=== PATIENT | male | born 1940 | race Caucasian/White ===

== ENCOUNTER 2017-09-27 17:55 | Emergency (ER) | payer MEDICARE, BC ==
[2017-09-28 00:18] VITALS: BP 189/94
--- NOTE | 2017-09-28 09:32 | ER ---
DATE SEEN: 09/27/2017 TIME SEEN: The patient was seen at 1800 hours. HISTORY OF PRESENT ILLNESS: The patient was at [facility] physical therapy for his chronic low back pain. His blood pressure was noted to be elevated at 197/98, heart rate 60, temperature 97, and oxygen saturation 100%. He was sent over to the hospital to evaluate his blood pressure, and see how he is doing. He has 4 medicines he is using for blood pressure; benazepril 40 mg, clonidine 0.1 mg, hydrochlorothiazide 12.5 mg, and enalapril 20 mg. He also takes other medicines of trazodone 100 mg daily; metformin; warfarin for his atrial fibrillation; insulin, long-acting, 20 at bedtime and 15 short-acting in the morning; and Lasix 40 mg daily. The patient is an overweight 300+ pound man, who otherwise is in relatively good health, except has dyslipidemia, atrial fibrillation, GERD, peripheral neuropathy, eczema, and low back pain. He is on anticoagulants for his atrial fibrillation, and he had previous surgeries of bilateral total knee arthroplasties, cholecystectomy, hernia repair, and left shoulder surgery. On further review of systems, he has chronic low back pain, and he has difficulty sleeping because of this. It is usually 5/10 in intensity, mostly in the lumbar region. He has never had an MRI or a CT of his lower back, but he does have mild pain radiating to his right leg. No recent weight change. No history of aortic aneurysm. No fall. Although he did slip this winter on the ice, did not get hurt. REVIEW OF SYSTEMS: Otherwise negative, except as noted. PHYSICAL EXAMINATION: VITAL SIGNS: First blood pressure taken was 197/98, mean arterial pressure 124, and 60 heart rate. Second blood pressure taken was 189/94, mean arterial pressure 117, and heart rate 47. HEENT: PERRLA intact, AV nicking in his eyegrounds. Pharynx without abnormality. GENERAL: This is a husky, overweight man with marked increased abdominal girth. Well tanned. Very pleasant. NECK: No bruits. HEART: S1 and S2; S2 is greater than S1. Soft systolic murmur. ABDOMEN: Soft. No guarding. No hepatosplenomegaly. No masses. No scars noted. Bowel sounds normal. EXTREMITIES: Lower extremities, trace pedal edema. Dorsalis pedis intact. NEUROLOGICAL: Deep tendon reflexes hypoactive but present in upper and lower extremities. Cranial nerves 2 through 12 intact. Gait intact. No hypotension with standing up. No lightheadedness. LABORATORY DATA: He also had a chemistry which revealed sodium, potassium, chloride, and CO2 were normal with 139, 4.0, 103, and 30. BUN 30 and creatinine 1.4 with GFR of 49 - chronic kidney disease, stage 3. BUN-creatinine ratio is slightly elevated. Glucose 337 (reflects his diabetes). Calcium is a little bit low, with a normal total protein and normal albumin. Urine protein 500, glucose is 250, few bacteria, and squamous epithelial cells. ASSESSMENT: 1. Hypertension, noted at [facility]. 2. Obesity. 3. Diabetes. 4. Dyslipidemia. 5. Atrial fibrillation, treated with anticoagulants. 6. Gastroesophageal reflux disease, gastropathy. 7. Peripheral neuropathy secondary to diabetes. 8. Eczema. 9. Anticoagulation for his atrial fibrillation. 10.Chronic low back pain with difficulty sleeping. PLAN: Already on 4-drug antihypertensive therapy, needs to increase his hydrochlorothiazide from 12.5 to 25 mg daily. If this does not work, consider doubling enalapril to 40 mg daily. Follow up with his doctor next week. /[id number] DES/SHU
== END 2017-09-27 19:54 | disposition home or self-care (01) ==
LOC: FB.ED 17:55
DX: I10 Essential (primary) hypertension (principal); G89.29 Other chronic pain; M54.5 Low back pain; G47.9 Sleep disorder, unspecified; E11.40 Type 2 diabetes mellitus with diabetic neuropathy, unspecified; E66.9 Obesity, unspecified; E78.5 Hyperlipidemia, unspecified; K21.9 Gastro-esophageal reflux disease without esophagitis; K31.9 Disease of stomach and duodenum, unspecified; I48.91 Unspecified atrial fibrillation; Z79.01 Long term (current) use of anticoagulants
CPT/HCPCS: 36415; 80053; 81001; 99283

== ENCOUNTER 2019-01-29 08:58 | Day surgery (SDC) | payer MEDICARE, BC ==
[2019-01-29] MEDS ORDERED: Propofol 200 MG/20 ML SDV IV ONE (08:59)
[2019-01-29] MEDS ORDERED: Sodium Chloride 0.9% 10 ML Syringe FLUSH PRN (09:00)
[2019-01-29] MEDS: Lactated Ringers 1,000 ML IV SCH (09:55)
--- NOTE | 2019-01-29 11:11 | PCM.OPNOTE ---
- General Post-Op/Procedure Note Date of Surgery/Procedure: 01/29/19 Operative Procedure(s): c scope Findings: poor prep with liquid stool through out. two polyps which had been bx were lost in prep Pre Op Diagnosis: diarrhea Post-Op Diagnosis: diarrhea and colon polyps Anesthesia Technique: MAC Primary Surgeon: Monster Mo Anesthesia Provider: Lela Harman Pathology: two bx of ascending colon ] Complications: None Condition: Good Free Text/Narrative:: see dictation.
[2019-01-29 12:19] VITALS: BP 131/70; PULSE 59
--- NOTE | 2019-01-30 11:31 | OR ---
DATE OF OPERATION: 01/29/2019 SURGEON: Monster Mo MD PROCEDURE PERFORMED: Colonoscopy with hot loop snare biopsy and cold forceps biopsy. PREOPERATIVE DIAGNOSIS: History of diarrhea. POSTOPERATIVE DIAGNOSIS: Diarrhea, colon polyps, and poor prep. INDICATIONS FOR PROCEDURE: This is an 78-year-old male who has had a history with some diarrhea over the past several months. He was offered and accepted colonoscopy. DESCRIPTION OF PROCEDURE: After an excellent IV sedation was administered, digital rectal exam was performed. No marked abnormality was noted. The flexible colonoscope was inserted and advanced to the cecum. The prep was marginal at best. We were unable to irrigate and clear. On slowly withdrawing the scope on the ascending colon, two polyps were encountered, roughly 1 cm in diameter. Both of these were biopsied, but we were unable to retrieve them. Due to the poor nature of the prep, we elected to terminate the procedure, re- prep the patient and bring him back the following day. /[id number] MAYANK/SHU
== END 2019-01-29 12:25 | disposition home or self-care (01) ==
LOC: FB.SDS 08:58
PROVIDERS: ATTEND Surgery
DX: D12.2 Benign neoplasm of ascending colon (principal); I48.20 Chronic atrial fibrillation, unspecified; I12.9 Hypertensive chronic kidney disease with stage 1 through stage 4 chronic kidney disease, or unspecified chronic kidney disease; E11.22 Type 2 diabetes mellitus with diabetic chronic kidney disease; N18.3 Chronic kidney disease, stage 3 (moderate); E11.42 Type 2 diabetes mellitus with diabetic polyneuropathy; E78.00 Pure hypercholesterolemia, unspecified; E66.9 Obesity, unspecified; J44.9 Chronic obstructive pulmonary disease, unspecified; Z68.38 Body mass index [BMI] 38.0-38.9, adult; Z86.010 Personal history of colon polyps; Z79.51 Long term (current) use of inhaled steroids; Z79.4 Long term (current) use of insulin; Z79.899 Other long term (current) drug therapy
CPT/HCPCS: 45380; 82962; J2704; J7120; 00811-QZ; 88305

== ENCOUNTER 2019-01-30 08:43 | Day surgery (SDC) | payer MEDICARE, BC ==
[2019-01-30] MEDS ORDERED: Lidocaine 2% 5 ML SDV IV ONE (08:44)
[2019-01-30] MEDS ORDERED: ePHEDrine 50 MG/ML SDV IV ONE (08:44)
[2019-01-30] MEDS ORDERED: Propofol 200 MG/20 ML SDV IV ONE (08:44)
[2019-01-30] MEDS ORDERED: Sodium Chloride 0.9% 10 ML Syringe FLUSH PRN (08:45)
[2019-01-30] MEDS: Lactated Ringers 1,000 ML IV SCH (10:01)
--- NOTE | 2019-01-30 11:04 | PCM.OPNOTE ---
- General Post-Op/Procedure Note Date of Surgery/Procedure: 01/30/19 Operative Procedure(s): c scope with bx Findings: ascending colon polyp transverse colon polyp descending colon polyp x3 sigmoid colon polyp x3 Pre Op Diagnosis: diarrhea Post-Op Diagnosis: colon polyps Anesthesia Technique: MAC Primary Surgeon: Monster Mo Anesthesia Provider: Judy Oh Pathology: colon polyps random colon Complications: None Condition: Good Free Text/Narrative:: see dictation
--- NOTE | 2019-01-30 11:31 | OR ---
DATE OF OPERATION: 01/30/2019 SURGEON: Monster Mo MD PROCEDURE PERFORMED: Colonoscopy with hot loop snare and cold forceps biopsy. PREOPERATIVE DIAGNOSIS: History of diarrhea. POSTOPERATIVE DIAGNOSES: Multiple colon polyps. Ascending colon x1. This is in addition to the 2 noted yesterday. Transverse colon polyp x1. Descending colon polyp x3. Sigmoid colon polyp x3. INDICATIONS FOR PROCEDURE: Mr. Delcid is an 78-year-old white male who has had a history of some diarrhea and incontinence of stools. Workup to-date has been negative. He had an attempted colonoscopy yesterday, but this was terminated due to his poor prep. He had two colon polyps biopsied yesterday, which were lost in the stool, and due to the scope clogging, we elected to terminate the case and bring the patient back today. DESCRIPTION OF OPERATION: After an excellent IV sedation was administered, digital rectal exam was performed. Flexible colonoscope was inserted and advanced to the cecum. The prep was better than yesterday, but in the descending colon, he did have pools of yellow particulate stool, which was consistent with what was found yesterday. However, the prep was much improved compared to yesterday. The following findings were noted. Ascending colon, a flat sessile polyp, biopsied with hot loop snare and retrieved. This was similar to one polyp seen yesterday. Random polyps biopsies were taken of the ascending colon. Transverse colon, a pedunculated polyp, biopsied with the hot loop snare. Random biopsies were taken as well. Descending colon, 3 pedunculated polyps, biopsied with hot loop snare and submitted. Random biopsies were taken. He was also noted to have a fair amount of spasm as well as the prep findings as noted. Sigmoid, 3 polyps biopsied with the hot loop snare. Various sizes, ranging for 1 to 2 cm in size. These were submitted. Random biopsies were taken of this. Rectum was unremarkable. The colon was deflated. Scope was removed. Results by letter. /[id number] /MODL
[2019-01-30 12:18] VITALS: BP 97/60; PULSE 47
== END 2019-01-30 11:43 | disposition home or self-care (01) ==
LOC: FB.SDS 08:43
PROVIDERS: ATTEND Surgery
DX: D12.2 Benign neoplasm of ascending colon (principal); D12.3 Benign neoplasm of transverse colon; D12.4 Benign neoplasm of descending colon; D12.5 Benign neoplasm of sigmoid colon; E11.43 Type 2 diabetes mellitus with diabetic autonomic (poly)neuropathy; E11.69 Type 2 diabetes mellitus with other specified complication; J44.9 Chronic obstructive pulmonary disease, unspecified; M16.11 Unilateral primary osteoarthritis, right hip; E78.5 Hyperlipidemia, unspecified; I12.9 Hypertensive chronic kidney disease with stage 1 through stage 4 chronic kidney disease, or unspecified chronic kidney disease; E11.22 Type 2 diabetes mellitus with diabetic chronic kidney disease; N18.3 Chronic kidney disease, stage 3 (moderate); E66.9 Obesity, unspecified; Z68.38 Body mass index [BMI] 38.0-38.9, adult; Z79.899 Other long term (current) drug therapy; Z79.51 Long term (current) use of inhaled steroids; Z79.4 Long term (current) use of insulin; Z79.01 Long term (current) use of anticoagulants
CPT/HCPCS: 45380; 45385; J2001; J2704; J7120; 00811-QZ; 88305; 88342

== ENCOUNTER 2019-04-21 21:57 | Inpatient (IN) | payer MEDICARE, BC ==
[2019-04-21] MEDS ORDERED: Furosemide 40 MG/4 ML VIAL IVPUSH ONE (23:07)
--- NOTE | 2019-04-21 23:07 | EDM.PDOC ---
ED HPI GENERAL MEDICAL PROBLEM - General Stated Complaint: dizziness Time Seen by Provider: 04/21/19 22:30 Source of Information: Reports: EMS, Family. Denies: EMS Notes Reviewed History Limitations: Reports: No Limitations - History of Present Illness INITIAL COMMENTS - FREE TEXT/NARRATIVE: brought in by EMS states he was going to the bathroom when fell. Was feeling dizzy and unsteady with his gait Hurt his arm , was not able to get up . called 911 . on arrival noted to be weak , not able to stand , sob at rest though able to speak in sentences no cough ,no chest pain , no abd pain Onset: Today Onset Date: 04/21/19 Duration: Getting Worse Quality: Reports: Pressure Severity: Moderate Improves with: Reports: Rest Worsens with: Reports: Breathing, Movement Context: Reports: Other (fall) - Related Data Allergies Allergy/AdvReac Type Severity Reaction Status Date / Time No Known Allergies Allergy Verified 04/21/19 22:38 Home Meds: Home Meds Hydrochlorothiazide 50 mg PO QAM 02/07/13 [History] Glucosam/Chondr/Collagn/Hyalur [Glucosamine & Chondroitin Cap] 1 cap PO DAILY [History] Vitamin B Complex 1 cap PO DAILY 05/30/14 [History] Cholecalciferol (Vitamin D3) [Vitamin D3] 1,000 unit PO DAILY 01/09/16 [History] Zinc 50 mg PO DAILY 01/09/16 [History] cloNIDine [Catapres] 0.2 mg PO DAILY 09/28/17 [History] traZODone 100 mg PO BEDTIME 09/28/17 [History] Donepezil [Aricept] 5 mg PO BEDTIME 01/28/19 [History] Insulin Glargine,Hum.Rec.Anlog [Basaglar Kwikpen U-100] 0 - 15 unit SQ BEDTIME 01/28/19 [History] Insulin Glargine,Hum.Rec.Anlog [Basaglar Kwikpen U-100] 0 - 15 unit SQ QAM 01/28 [History] Lutein/Min/Vit C/Vit E Acetate [Ocuvite Lutein] 1 cap PO DAILY 01/28/19 [History ] Calcium Carbonate/Vitamin D3 [Os-Porter 500+D] 1 each PO DAILY 04/21/19 [History] L.acidoph,Paracasei, B.lactis [Probiotic] 1 each PO DAILY 04/21/19 [History] Olmesartan Medoxomil [Benicar] 40 mg PO DAILY 04/21/19 [History] Warfarin [Coumadin] 2.5 mg PO TUFR 04/21/19 [History] Warfarin [Coumadin] 5 mg PO SUMOWETHSA 04/21/19 [History] sulfaSALAzine [Azulfidine] 500 mg PO BIDMEALS 04/21/19 [History] Past Medical History HEENT History: Reports: Cataract Cardiovascular History: Reports: Afib, High Cholesterol, Hypertension Respiratory History: Reports: Asthma, COPD Other Respiratory History: mild COPD - has albuterol inhaler Gastrointestinal History: Reports: GERD Genitourinary History: Reports: Chronic Renal Insuffiency, Other (See Below) Other Genitourinary History: STAGE 3 RENAL FAILURE Musculoskeletal History: Reports: Arthritis, Osteoarthritis Other Musculoskeletal History: 3 rib fx L lat Neurological History: Reports: Neuropathy, Peripheral Endocrine/Metabolic History: Reports: Diabetes, Type II, Obesity/BMI 30+ Hematologic History: Reports: Anticoagulation Therapy Immunologic History: Reports: None Oncologic (Cancer) History: Reports: Basal Cell Carcinoma Dermatologic History: Reports: Eczema, Other (See Below) Other Dermatologic History: fatty tumor removed from back. Has 'hematoma to R inner thigh from fall earlier this summer, was drained approx 2 1/[address] Mo[address]. ROSACEA - Infectious Disease History Infectious Disease History: Reports: Chicken Pox, Measles, Mumps - Past Surgical History Head Surgeries/Procedures: Reports: None HEENT Surgical History: Reports: Cataract Surgery, Tonsillectomy Other HEENT Surgeries/Procedures: bilat cataract Cardiovascular Surgical History: Reports: None GI Surgical History: Reports: Cholecystectomy, Hernia, Inguinal, Hernia Repair/ Other Other Female Surgeries/Procedures: L HYDROCELECTOMY Male Surgical History: Reports: Vasectomy, Other (See Below) Endocrine Surgical History: Reports: None Neurological Surgical History: Reports: None Musculoskeletal Surgical History: Reports: Knee Replacement, ORIF, Shoulder Replacement, Other (See Below) Other Musculoskeletal Surgeries/Procedures:: bilat knee replacement, L shoulder replacement, L femur ORIF Oncologic Surgical History: Reports: None Dermatological Surgical History: Reports: None Social & Family History - Family History Family Medical History: Noncontributory - Caffeine Use Caffeine Use: Reports: Coffee ED ROS GENERAL - Review of Systems Review Of Systems: See Below Constitutional: Reports: Weakness, Fatigue, Weight Gain. Denies: Fever, Chills , Diaphoresis, Decreased Appetite HEENT: Reports: No Symptoms Respiratory: Reports: Shortness of Breath. Denies: Wheezing, Cough Cardiovascular: Reports: Dyspnea on Exertion, Edema. Denies: Chest Pain, PND Endocrine: Reports: Fatigue GI/Abdominal: Reports: No Symptoms : Reports: Incontinence Musculoskeletal: Reports: Muscle Pain Skin: Reports: Other (abrasion on the right hand from fall) Neurological: Reports: Confusion, Dizziness, Pre-Existing Deficit (has memory problems , short term memory deficit), Gait Disturbance Psychiatric: Reports: Confusion Hematologic/Lymphatic: Reports: Easy Bleeding ED EXAM, NEURO - Physical Exam Exam: See Below Exam Limited By: No Limitations General Appearance: Alert, WD/WN, No Apparent Distress, Obese Eye Exam: Bilateral Eye: EOMI Ears: Normal TMs Nose: Clear Rhinorrhea Throat/Mouth: Normal Inspection Head Exam: Atraumatic, Normocephalic Neck: Supple, Non-Tender Respiratory/Chest: Decreased Breath Sounds, Crackles Cardiovascular: Regular Rate, Rhythm, Irregularly Irregular GI/Abdominal: Soft, Non-Tender Neurological: Alert, Difficulty Walking Back Exam: Normal Inspection Extremities: Pedal Edema Psychiatric: Normal Mood Skin Exam: Warm EKG INTERPRETATION EKG Date: 04/21/19 Rhythm: A-Fib Rate (Beats/Min): 58 QRS: RBBB *Q Meaningful Use (ADM) - VTE *Q VTE Mechanical Contraindications *Q: At Risk for Falls - VTE Risk Assess *Q Each Risk Factor Represents 1 Point: Obesity ( BMI > 25 kg/m2), Congestive heart failure (CHF) Total Score 1 Point Risk Factors: 2 Course - Orders/Labs/Meds Orders: Active Orders 24 hr Category Date Time Status Head wo Cont [CT] Stat Exams 04/21/19 22:18 Ordered Labs: Laboratory Tests 04/21/19 04/21/19 04/21/19 Range/Units 22:05 22:05 22:05 WBC 7.8 (4.5-12.0) X10-3/uL RBC 4.14 L (4.30-5.75) x10(6)uL Hgb 13.0 L (13.5-17.8) g/dL Hct 40.6 (30.0-51.3) % MCV 98.0 H (80-96) fL MCH 31.5 (27.7-33.6) pg MCHC 32.2 (32.2-35.4) g/dL RDW 15.5 (11.5-15.5) % Plt Count 300 (125-369) X10(3)uL MPV 7.3 L (7.4-10.4) fL Neut % (Auto) 74.3 (46-82) % Lymph % (Auto) 14.4 (13-37) % Jennings % (Auto) 7.9 (4-12) % Eos % (Auto) 3 (1.0-5.0) % Baso % (Auto) 1 (0-2) % Neut # (Auto) 5.9 (1.6-8.3) # Lymph # (Auto) 1.1 (0.6-5.0) # Jennings # (Auto) 0.6 (0.0-1.3) # Eos # (Auto) 0.2 (0.0-0.8) # Baso # (Auto) 0.0 (0.0-0.2) # PT (8.7-11.1) INR (0.89-1.13) APTT (24.4-33.2) SECONDS Sodium 142 (135-145) mmol/L Potassium 4.0 (3.5-5.3) mmol/L Chloride 104 (100-110) mmol/L Carbon Dioxide 31 (21-32) mmol/L BUN 21 H (7-18) mg/dL Creatinine 1.2 (0.70-1.30) mg/dL Est Cr Clr Drug Dosing TNP Estimated GFR (MDRD) 58 L (>60) BUN/Creatinine Ratio 17.5 (9-20) Glucose 180 H D (80-116) mg/dL Calcium 8.8 (8.6-10.2) mg/dL Total Bilirubin 0.6 (0.1-1.3) mg/dL AST 26 H D (5-25) IU/L ALT 31 D (12-36) U/L Alkaline Phosphatase 159 H (56-112) IU/L Creatine Kinase 50 L (60-160) IU/L Troponin I 0.028 (<0.017-0.056) ng/mL NT-Pro-B Natriuret Pep 3059 H* (<=450) pg/mL Total Protein 6.3 (6.0-8.0) g/dL Albumin 3.3 (3.2-4.6) g/dL Globulin 3.0 g/dL Albumin/Globulin Ratio 1.1 04/21/19 Range/Units 22:05 WBC (4.5-12.0) X10-3/uL RBC (4.30-5.75) x10(6)uL Hgb (13.5-17.8) g/dL Hct (30.0-51.3) % MCV (80-96) fL MCH (27.7-33.6) pg MCHC (32.2-35.4) g/dL RDW (11.5-15.5) % Plt Count (125-369) X10(3)uL MPV (7.4-10.4) fL Neut % (Auto) (46-82) % Lymph % (Auto) (13-37) % Jennings % (Auto) (4-12) % Eos % (Auto) (1.0-5.0) % Baso % (Auto) (0-2) % Neut # (Auto) (1.6-8.3) # Lymph # (Auto) (0.6-5.0) # Jennings # (Auto) (0.0-1.3) # Eos # (Auto) (0.0-0.8) # Baso # (Auto) (0.0-0.2) # PT 13.7 H (8.7-11.1) INR 1.41 H (0.89-1.13) APTT 24.7 (24.4-33.2) SECONDS Sodium (135-145) mmol/L Potassium (3.5-5.3) mmol/L Chloride (100-110) mmol/L Carbon Dioxide (21-32) mmol/L BUN (7-18) mg/dL Creatinine (0.70-1.30) mg/dL Est Cr Clr Drug Dosing Estimated GFR (MDRD) (>60) BUN/Creatinine Ratio (9-20) Glucose (80-116) mg/dL Calcium (8.6-10.2) mg/dL Total Bilirubin (0.1-1.3) mg/dL AST (5-25) IU/L ALT (12-36) U/L Alkaline Phosphatase (56-112) IU/L Creatine Kinase (60-160) IU/L Troponin I (<0.017-0.056) ng/mL NT-Pro-B Natriuret Pep (<=450) pg/mL Total Protein (6.0-8.0) g/dL Albumin (3.2-4.6) g/dL Globulin g/dL Albumin/Globulin Ratio Departure - Departure Time of Disposition: 12:30 Disposition: Admitted As Inpatient 64 Clinical Impression: Fall as cause of accidental injury at home as place of occurrence, SOB ( shortness of breath) on exertion, Fluid retention, CHF (congestive heart failure ), Functional gait abnormality, FPC current use of anticoagulant, Hypertensive urgency - Discharge Information Referrals: PCP,None [Primary Care Provider] - - My Orders Last 24 Hours: My Active Orders 04/21/19 22:18 Head wo Cont [CT] Stat - Assessment/Plan Last 24 Hours: My Active Orders 04/21/19 22:18 Head wo Cont [CT] Stat
[2019-04-21] MEDS ORDERED: hydrALAZINE 20 MG/ML SDV IVPUSH ONE (23:08)
[2019-04-21] MEDS ORDERED: Sodium Chloride 0.9% 10 ML Syringe FLUSH PRN (23:13)
[2019-04-22] MEDS ORDERED: Warfarin 5 MG Tab PO SCH (00:30)
[2019-04-22] MEDS ORDERED: traZODone 100 MG Tab PO ONE (04:00)
[2019-04-22] MEDS ORDERED: Acetaminophen 500 MG Tab PO ONE (04:03)
[2019-04-22] MEDS ORDERED: traZODone 50 MG Tab PO ONE (04:30)
[2019-04-22] MEDS ORDERED: Insulin Glargine,Human Rec. Analog 100 Units/ML 3 ML Pen SUBCUT SCH ×4 (06:00→21:00)
[2019-04-22] MEDS ORDERED: Warfarin Sliding Scale PO SCH (08:15)
[2019-04-22] MEDS: Losartan 100 MG Tab PO SCH (08:52)
[2019-04-22] MEDS: sulfaSALAzine 500 MG Tab PO SCH ×2 (08:52→18:22)
[2019-04-22] MEDS: cloNIDine 0.1 MG Tab PO SCH (08:53)
[2019-04-22] MEDS: Potassium Chloride 20 MEQ Tab.ER PO SCH ×2 (08:53→20:01)
[2019-04-22] MEDS ORDERED: Furosemide 40 MG/4 ML VIAL IVPUSH SCH (09:00)
--- NOTE | 2019-04-22 10:47 | CR ---
INDICATION: Shortness of breath. CHEST, ONE VIEW: AP portable upright view of the chest 04/21/19 - comparison is CT of chest dated 01/09/16. There is again noted cardiomegaly with tortuous aorta calcified in the arch. Overlying pulmonary vasculature is somewhat prominent raising question of mild or early CHF. No definite consolidating pneumonia or effusion was seen. IMPRESSION: Findings suggest possibility of mild or early CHF. MTDD
[2019-04-22] MEDS ORDERED: Nystatin Topical Powder 15 GM Bottle TOP SCH (11:30)
[2019-04-22] MEDS ORDERED: Loperamide 2 MG Cap PO PRN (12:34)
--- NOTE | 2019-04-22 12:50 | PCM.HP.2 ---
H&P History of Present Illness - General Date of Service: 04/22/19 Admit Problem/Dx: Admission Diagnosis/Problem Admission Diagnosis/Problem Congestive heart failure, right side weakness Source of Information: Patient, Old Records, Provider - History of Present Illness Initial Comments - Free Text/Narative: Stephen was brought in by EMS after falling in the bathroom last night. He was dizzy, unsteady, fell hurting his right arm and unable to get up. His called 911. In ER he was weak, unable to stand, short of breath, spoke in broken sentences. No chest pain, cough or abdominal pain. CT head showed no acute stroke. Right arm/hand weakness. He had elevated BNP, diuresed 4L off overnight, Last ECHO was in 2014. Had MRI last week by [facility] for increased memory loss and tremors. 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 He has appointment for neuropsychiatric testing May 08 and due to see Dr Fuentes back again in July. History of CPAP, atrial fibrillation on Coumadin. Has not seen cardiology in the past year. I could not find that history of carotid Doppler in his [place] [facility]. History of Diabetes on Lantus 15 units in am and 20 units at bedtime per his ([place] chart has 20 units in am and 15 units at night). He was being weaned off Sulfasalazine per chart for diarrhea, was on 1 tab four times a day down to twice a day and then off but patient is still taking. Was on Cholestyramine but not taking. Patient has been dropped his cup and tray this morning, marked weakness of right hand. - Related Data Allergies/Adverse Reactions: Allergies Allergy/AdvReac Type Severity Reaction Status Date / Time No Known Allergies Allergy Verified 04/21/19 22:38 Home Medications: Home Meds Hydrochlorothiazide 50 mg PO QAM 02/07/13 [History] Glucosam/Chondr/Collagn/Hyalur [Glucosamine & Chondroitin Cap] 1 cap PO DAILY [History] Vitamin B Complex 1 cap PO DAILY 05/30/14 [History] Cholecalciferol (Vitamin D3) [Vitamin D3] 1,000 unit PO DAILY 01/09/16 [History] Zinc 50 mg PO DAILY 01/09/16 [History] cloNIDine [Catapres] 0.2 mg PO DAILY 09/28/17 [History] traZODone 100 mg PO BEDTIME 09/28/17 [History] Donepezil [Aricept] 5 mg PO BEDTIME 01/28/19 [History] Insulin Glargine,Hum.Rec.Anlog [Basaglar Kwikpen U-100] 0 - 15 unit SQ QAM 01/28 [History] Insulin Glargine,Hum.Rec.Anlog [Basaglar Kwikpen U-100] 10 - 20 unit SQ BEDTIME 01/28/19 [History] Lutein/Min/Vit C/Vit E Acetate [Ocuvite Lutein] 1 cap PO DAILY 01/28/19 [History ] Calcium Carbonate/Vitamin D3 [Os-[place]orter 500+D] 1 each PO DAILY 04/21/19 [History] L.acidoph,Paracasei, B.lactis [Probiotic] 1 each PO DAILY 04/21/19 [History] Olmesartan Medoxomil [Benicar] 40 mg PO DAILY 04/21/19 [History] Warfarin [Coumadin] 2.5 mg PO TUFR 04/21/19 [History] Warfarin [Coumadin] 5 mg PO SUMOWETHSA 04/21/19 [History] sulfaSALAzine [Azulfidine] 500 mg PO BIDMEALS 04/21/19 [History] Acetaminophen [Tylenol Extra Strength] 1,000 mg PO ONETIME 04/22/19 [History] Past Medical History HEENT History: Reports: Cataract Cardiovascular History: Reports: Afib, High Cholesterol, Hypertension Respiratory History: Reports: Asthma, COPD Other Respiratory History: mild COPD - has albuterol inhaler Gastrointestinal History: Reports: GERD Other Gastrointestinal History: bacterial colon infection Genitourinary History: Reports: Chronic Renal Insuffiency, Other (See Below) Other Genitourinary History: STAGE 3 RENAL FAILURE Musculoskeletal History: Reports: Arthritis, Osteoarthritis Other Musculoskeletal History: 3 rib fx L lat Neurological History: Reports: Neuropathy, Peripheral, Parkinson's (progressive supranuclear palsy type), Other (See Below) (memory loss) Psychiatric History: Reports: Dementia, Depression Endocrine/Metabolic History: Reports: Diabetes, Type II, Obesity/BMI 30+ Hematologic History: Reports: Anticoagulation Therapy Immunologic History: Reports: None Oncologic (Cancer) History: Reports: Basal Cell Carcinoma Other Oncologic History: had CA in colon polyp Dermatologic History: Reports: Eczema, Other (See Below) Other Dermatologic History: fatty tumor removed from back. Has 'hematoma to R inner thigh from fall earlier this summer, was drained approx 2 1/[address] Mo.'. ROSACEA - Infectious Disease History Infectious Disease History: Reports: Chicken Pox, Measles, Mumps - Past Surgical History Head Surgeries/Procedures: Reports: None HEENT Surgical History: Reports: Cataract Surgery, Tonsillectomy Other HEENT Surgeries/Procedures: bilat cataract Cardiovascular Surgical History: Reports: None GI Surgical History: Reports: Cholecystectomy, Hernia, Inguinal, Hernia Repair/ Other Other Female Surgeries/Procedures: L HYDROCELECTOMY Male Surgical History: Reports: Vasectomy, Other (See Below) Endocrine Surgical History: Reports: None Neurological Surgical History: Reports: None Musculoskeletal Surgical History: Reports: Knee Replacement, ORIF, Shoulder Replacement, Other (See Below) Other Musculoskeletal Surgeries/Procedures:: bilat knee replacement, L shoulder replacement, L femur ORIF Oncologic Surgical History: Reports: None Dermatological Surgical History: Reports: None Social & Family History - Family History Family Medical History: Noncontributory - Tobacco Use Smoking Status *Q: Never Smoker - Caffeine Use Caffeine Use: Reports: Coffee - Recreational Drug Use Recreational Drug Use: No H&P Review of Systems - Review of Systems: Review Of Systems: See Below General: Reports: No Symptoms HEENT: Reports: No Symptoms Pulmonary: Reports: No Symptoms Cardiovascular: Reports: No Symptoms Gastrointestinal: Reports: No Symptoms Genitourinary: Reports: No Symptoms Musculoskeletal: Reports: No Symptoms Skin: Reports: Change in Color (brown on lower legs with some abrasions that are scabbed over.) Psychiatric: Reports: Confusion Neurological: Reports: Dizziness, Difficulty Walking, Weakness (right arm/hand) , Gait Disturbance. Denies: Trouble Speaking Exam - Exam Exam: See Below - Vital Signs Vital Signs: Last Vital Signs Temp 97.8 F 04/22/19 12:00 Pulse 57 L 04/22/19 12:00 Resp 17 04/22/19 12:00 BP 164/85 H 04/22/19 12:00 Pulse Ox 99 04/22/19 12:00 Weight: 315 lb 1.6 oz - Exam General: Alert, Oriented (person), Cooperative. No: Mild Distress HEENT: PERRLA, Conjunctiva Clear, EOMI, Mucosa Moist & [place], Nares Patent, Normal Nasal Septum, Posterior Pharynx Clear Neck: Supple, Trachea Midline. 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 No: Tongue Deviation (L), Tongue Deviation (R), Dysarthria, Facial Palsy (R), Facial palsy (L) - Patient Data Lab Results Last 24 hrs: Laboratory Results - last 24 hr 04/21/19 04/21/19 04/21/19 Range/Units 22:04 22:05 22:05 WBC 7.8 (4.5-12.0) X10-3/uL RBC 4.14 L (4.30-5.75) x10(6)uL Hgb 13.0 L (13.5-17.8) g/dL Hct 40.6 (30.0-51.3) % MCV 98.0 H (80-96) fL MCH 31.5 (27.7-33.6) pg MCHC 32.2 (32.2-35.4) g/dL RDW 15.5 (11.5-15.5) % Plt Count 300 (125-369) X10(3)uL MPV 7.3 L (7.4-10.4) fL Neut % (Auto) 74.3 (46-82) % Lymph % (Auto) 14.4 (13-37) % [place] % (Auto) 7.9 (4-12) % Eos % (Auto) 3 (1.0-5.0) % Baso % (Auto) 1 (0-2) % Neut # (Auto) 5.9 (1.6-8.3) # Lymph # (Auto) 1.1 (0.6-5.0) # [place] # (Auto) 0.6 (0.0-1.3) # Eos # (Auto) 0.2 (0.0-0.8) # Baso # (Auto) 0.0 (0.0-0.2) # PT (8.7-11.1) INR (0.89-1.13) APTT (24.4-33.2) SECONDS Sodium 142 (135-145) mmol/L Potassium 4.0 (3.5-5.3) mmol/L Chloride 104 (100-110) mmol/L Carbon Dioxide 31 (21-32) mmol/L BUN 21 H (7-18) mg/dL Creatinine 1.2 (0.70-1.30) mg/dL Est Cr Clr Drug Dosing TNP Estimated GFR (MDRD) 58 L (>60) BUN/Creatinine Ratio 17.5 (9-20) Glucose 180 H D (80-116) mg/dL POC Glucose 185 H (80-116) mg/dL Calcium 8.8 (8.6-10.2) mg/dL Total Bilirubin 0.6 (0.1-1.3) mg/dL AST 26 H D (5-25) IU/L ALT 31 D (12-36) U/L Alkaline Phosphatase 159 H (56-112) IU/L Creatine Kinase 50 L (60-160) IU/L Troponin I (<0.017-0.056) ng/mL NT-Pro-B Natriuret Pep (<=450) pg/mL Total Protein 6.3 (6.0-8.0) g/dL Albumin 3.3 (3.2-4.6) g/dL Globulin 3.0 g/dL Albumin/Globulin Ratio 1.1 04/21/19 04/21/19 04/22/19 Range/Units 22:05 22:05 06:02 WBC (4.5-12.0) X10-3/uL RBC (4.30-5.75) x10(6)uL Hgb (13.5-17.8) g/dL Hct (30.0-51.3) % MCV (80-96) fL MCH (27.7-33.6) pg MCHC (32.2-35.4) g/dL RDW (11.5-15.5) % Plt Count (125-369) X10(3)uL MPV (7.4-10.4) fL Neut % (Auto) (46-82) % Lymph % (Auto) (13-37) % [place] % (Auto) (4-12) % Eos % (Auto) (1.0-5.0) % Baso % (Auto) (0-2) % Neut # (Auto) (1.6-8.3) # Lymph # (Auto) (0.6-5.0) # [place] # (Auto) (0.0-1.3) # Eos # (Auto) (0.0-0.8) # Baso # (Auto) (0.0-0.2) # PT 13.7 H (8.7-11.1) INR 1.41 H (0.89-1.13) APTT 24.7 (24.4-33.2) SECONDS Sodium (135-145) mmol/L Potassium (3.5-5.3) mmol/L Chloride (100-110) mmol/L Carbon Dioxide (21-32) mmol/L BUN (7-18) mg/dL Creatinine (0.70-1.30) mg/dL Est Cr Clr Drug Dosing Estimated GFR (MDRD) (>60) BUN/Creatinine Ratio (9-20) Glucose (80-116) mg/dL POC Glucose 103 D (80-116) mg/dL Calcium (8.6-10.2) mg/dL Total Bilirubin (0.1-1.3) mg/dL AST (5-25) IU/L ALT (12-36) U/L Alkaline Phosphatase (56-112) IU/L Creatine Kinase (60-160) IU/L Troponin I 0.028 (<0.017-0.056) ng/mL NT-Pro-B Natriuret Pep 3059 H* (<=450) pg/mL Total Protein (6.0-8.0) g/dL Albumin (3.2-4.6) g/dL Globulin g/dL Albumin/Globulin Ratio 04/22/19 04/22/19 04/22/19 Range/Units 06:30 06:30 06:30 WBC 9.8 (4.5-12.0) X10-3/uL RBC 3.68 L (4.30-5.75) x10(6)uL Hgb 12.1 L (13.5-17.8) g/dL Hct 36.1 (30.0-51.3) % MCV 98.4 H (80-96) fL MCH 33.0 (27.7-33.6) pg MCHC 33.6 (32.2-35.4) g/dL RDW 15.4 (11.5-15.5) % Plt Count 316 (125-369) X10(3)uL MPV (7.4-10.4) fL Neut % (Auto) (46-82) % Lymph % (Auto) (13-37) % [place] % (Auto) (4-12) % Eos % (Auto) (1.0-5.0) % Baso % (Auto) (0-2) % Neut # (Auto) (1.6-8.3) # Lymph # (Auto) (0.6-5.0) # [place] # (Auto) (0.0-1.3) # Eos # (Auto) (0.0-0.8) # Baso # (Auto) (0.0-0.2) # PT 14.0 H (8.7-11.1) INR 1.45 H (0.89-1.13) APTT (24.4-33.2) SECONDS Sodium 144 (135-145) mmol/L Potassium 3.3 L (3.5-5.3) mmol/L Chloride 105 (100-110) mmol/L Carbon Dioxide 29 (21-32) mmol/L BUN 18 (7-18) mg/dL Creatinine 1.0 (0.70-1.30) mg/dL Est Cr Clr Drug Dosing 76.17 Estimated GFR (MDRD) > 60 (>60) BUN/Creatinine Ratio 18.0 (9-20) Glucose 107 (80-116) mg/dL POC Glucose (80-116) mg/dL Calcium 8.7 (8.6-10.2) mg/dL Total Bilirubin (0.1-1.3) mg/dL AST (5-25) IU/L ALT (12-36) U/L Alkaline Phosphatase (56-112) IU/L Creatine Kinase (60-160) IU/L Troponin I (<0.017-0.056) ng/mL NT-Pro-B Natriuret Pep (<=450) pg/mL Total Protein (6.0-8.0) g/dL Albumin (3.2-4.6) g/dL Globulin g/dL Albumin/Globulin Ratio 04/22/19 Range/Units 12:17 WBC (4.5-12.0) X10-3/uL RBC (4.30-5.75) x10(6)uL Hgb (13.5-17.8) g/dL Hct (30.0-51.3) % MCV (80-96) fL MCH (27.7-33.6) pg MCHC (32.2-35.4) g/dL RDW (11.5-15.5) % Plt Count (125-369) X10(3)uL MPV (7.4-10.4) fL Neut % (Auto) (46-82) % Lymph % (Auto) (13-37) % [place] % (Auto) (4-12) % Eos % (Auto) (1.0-5.0) % Baso % (Auto) (0-2) % Neut # (Auto) (1.6-8.3) # Lymph # (Auto) (0.6-5.0) # [place] # (Auto) (0.0-1.3) # Eos # (Auto) (0.0-0.8) # Baso # (Auto) (0.0-0.2) # PT (8.7-11.1) INR (0.89-1.13) APTT (24.4-33.2) SECONDS Sodium (135-145) mmol/L Potassium (3.5-5.3) mmol/L Chloride (100-110) mmol/L Carbon Dioxide (21-32) mmol/L BUN (7-18) mg/dL Creatinine (0.70-1.30) mg/dL Est Cr Clr Drug Dosing Estimated GFR (MDRD) (>60) BUN/Creatinine Ratio (9-20) Glucose (80-116) mg/dL POC Glucose 127 H (80-116) mg/dL Calcium (8.6-10.2) mg/dL Total Bilirubin (0.1-1.3) mg/dL AST (5-25) IU/L ALT (12-36) U/L Alkaline Phosphatase (56-112) IU/L Creatine Kinase (60-160) IU/L Troponin I (<0.017-0.056) ng/mL NT-Pro-B Natriuret Pep (<=450) pg/mL Total Protein (6.0-8.0) g/dL Albumin (3.2-4.6) g/dL Globulin g/dL Albumin/Globulin Ratio Result Diagrams: 04/22/19 06:30 04/22/19 06:30 EKG INTERPRETATION EKG Date: 04/22/19 Time: 12:18 Rhythm: A-Fib Rate (Beats/Min): 49 Nice: LAD-Left Nice Deviation P-Wave: Absent QRS: RBBB ST-T: Normal QT: Normal Comparison: No Change EKG Interpretation Comments: Atrial fibrillation with bradycardia, RBBB. No ischemic changes. Sepsis Event Note - Evaluation Sepsis Screening Result: No Definite Risk - Focused Exam Vital Signs: Vital Signs Temp Pulse Pulse Resp BP BP Pulse Ox 04/22/19 12:00 97.8 F 57 L 17 164/85 H 99 04/22/19 08:53 147/68 H 04/22/19 08:52 147/68 H 04/22/19 08:00 98.8 F 62 16 147/68 H 97 04/22/19 03:45 98.4 F 55 L 18 165/82 H 100 Date Exam was Performed: 04/22/19 Time Exam was Performed: 13:20 *Q Meaningful Use (ADM) - VTE *Q VTE Mechanical Contraindications *Q: At Risk for Falls - VTE Risk Assess *Q Each Risk Factor Represents 1 Point: Swollen Legs, Current Total Score 1 Point Risk Factors: 1 Each Risk Factor Represents 3 Points: Age 75 Years or Greater Total Score 3 Point Risk Factors: 3 - Stroke *Q Anticoagulation Contraindications Stroke *Q: Med/TX Not Indicated/Need Antithrombotic Contraindications Stroke *Q: Comp/Late Effect of Care Thrombolytic/Fibrinolytic Contraindications Stroke *Q: Comp/Late Effect of Care - Problem List (1) CHF (congestive heart failure) SNOMED Code(s): 01753060 ICD Code: I50.9 - HEART FAILURE, UNSPECIFIED Status: Acute Current Visit : Yes (2) Acute right-sided weakness SNOMED Code(s): 655278646 ICD Code: R53.1 - WEAKNESS Status: Acute Current Visit: Yes (3) Fall as cause of accidental injury at home as place of occurrence SNOMED Code(s): 84596333 ICD Code: W19.XXXA - UNSPECIFIED FALL, INITIAL ENCOUNTER; Y92.009 - UNSP PLACE IN UNSP NON-INSTITUT (PRIVATE) RESIDENCE PLACE Status: Acute Current Visit: Yes (4) Functional gait abnormality SNOMED Code(s): 98096015222989 ICD Code: R26.89 - OTHER ABNORMALITIES OF GAIT AND MOBILITY Status: Acute Current Visit: Yes (5) Chronic atrial fibrillation SNOMED Code(s): 764413752 ICD Code: I48.20 - CHRONIC ATRIAL FIBRILLATION, UNSPECIFIED Status: Chronic Current Visit: Yes (6) Type 2 diabetes mellitus SNOMED Code(s): 70798057 ICD Code: E11.9 - TYPE 2 DIABETES MELLITUS WITHOUT COMPLICATIONS Status: Acute Current Visit: Yes (7) Hyperlipidemia SNOMED Code(s): 40048898 ICD Code: E78.5 - HYPERLIPIDEMIA, UNSPECIFIED Status: Acute Current Visit : Yes (8) Chronic renal failure, stage 3 (moderate) SNOMED Code(s): 35345613, 989131477 ICD Code: N18.3 - CHRONIC KIDNEY DISEASE, STAGE 3 (MODERATE) Status: Acute Current Visit: Yes (9) Memory loss SNOMED Code(s): 19763987 ICD Code: R41.3 - OTHER AMNESIA Status: Chronic Current Visit: Yes (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 SNOMED Code(s): 489494993 ICD Code: Z79.01 - CERTIFIED MEDICAL CODING SPECIALIST (CURRENT) USE OF ANTICOAGULANTS Status: Chronic Current Visit: Yes (11) Hypertension SNOMED Code(s): 39043686 ICD Code: I10 - ESSENTIAL (PRIMARY) HYPERTENSION Status: Chronic Current Visit: Yes (12) COPD with asthma SNOMED Code(s): 92608445155236594 ICD Code: J44.9 - CHRONIC OBSTRUCTIVE PULMONARY DISEASE, UNSPECIFIED Status : Chronic Current Visit: Yes (13) History of carcinoma in situ of colon SNOMED Code(s): 965174721 ICD Code: Z86.004 - PERS HX OF IN-SITU NEOPLASM OF OTHER AND UNSP DGSTV ORGS Status: Acute Current Visit: Yes (14) Fluid retention SNOMED Code(s): 27652301 ICD Code: R60.9 - EDEMA, UNSPECIFIED Status: Acute Current Visit: Yes Problem List Initiated/Reviewed/Updated: Yes Orders Last 24hrs: Active Orders 24 hr Category Date Time Status Patient Status [ADT] Routine ADT 04/22/19 00:35 Active Ambulate [RC] PER UNIT ROUTINE Care 04/22/19 00:34 Active Antiembolic Devices [RC] 00,08,16 Care 04/22/19 00:35 Active Blood Glucose Check, Bedside [RC] QIDACANDBED Care 04/22/19 04:32 Active EKG Documentation Completion [RC] ASDIRECTED Care 04/22/19 11:15 Active Insert Cotton Catheter [Insert Urinary Catheter] [OM.PC] Care 04/23/19 00:10 Ordered Q24H Intake and Output [RC] ,, Care 04/22/19 00:36 Active Pulse Oximetry [RC] PRN Care 04/22/19 00:35 Active Telemetry Monitoring [Cardiac Monitoring] [RC] 00,08,16 Care 04/22/19 06:40 Active Up With Assistance [RC] ASDIRECTED Care 04/22/19 00:34 Active Urinary Catheter Assessment [RC] QSHIFT Care 04/22/19 06:35 Active Vital Signs [RC] 00,04,08,12,16,20 Care 04/22/19 00:35 Active OT Evaluation and Treatment [CONS] Routine Cons 04/22/19 08:05 Active PT Evaluation and Treatment [CONS] Routine Cons 04/22/19 08:05 Active 2 Gram Sodium Diet [DIET] Diet 04/22/19 Breakfast Active Brain w wo Cont [MR] Routine Exams 04/22/19 08:00 Ordered Head wo Cont [CT] Stat Exams 04/21/19 22:18 Taken BASIC METABOLIC PANEL,BMP [CHEM] Routine Lab 04/23/19 06:00 Ordered INR,PT,PROTHROMBIN TIME [COAG] Routine Lab 04/23/19 06:00 Ordered Donepezil [Aricept] Med 04/22/19 21:00 Active 5 mg PO BEDTIME Furosemide [Lasix] Med 04/22/19 09:00 Active 40 mg IVPUSH DAILY Insulin Glarg,Human.Rec.Analog [LantUS Solostar] Med 04/23/19 09:00 Hold 15 units SUBCUT DAILY Insulin Glarg,Human.Rec.Analog [LantUS Solostar] Med 04/22/19 21:00 Active 20 units SUBCUT BEDTIME Loperamide [Imodium] Med 04/22/19 12:34 Ordered 4 mg PO DAILY PRN Losartan [Cozaar] Med 04/22/19 09:00 Active 100 mg PO DAILY Nystatin [Nystop] Med 04/22/19 11:30 Active 0 gm TOP BID Potassium Chloride [Klor-Con M20] Med 04/22/19 09:00 Active 20 meq PO BID Sodium Chloride 0.9% [Saline Flush] Med 04/21/19 23:13 Active 10 ml FLUSH ASDIRECTED PRN Warfarin Sliding Scale [Coumadin Sliding Scale] Med 04/22/19 08:15 Pending 1 each PO ASDIRECTED Warfarin [Coumadin] Med 04/22/19 16:00 Active 7.5 mg PO ONETIME ONE cloNIDine [Catapres] Med 04/22/19 09:00 Active 0.2 mg PO DAILY sulfaSALAzine Med 04/22/19 08:00 Active 500 mg PO BIDMEALS traZODone Med 04/22/19 21:00 Active 100 mg PO BEDTIME DVT/VTE Prophylaxis Reflex [OM.PC] Per Unit Routine Oth 04/22/19 00:35 Ordered Peripheral IV Insertion Adult [OM.PC] Routine Oth 04/21/19 23:13 Ordered Resuscitation Status Routine Resus Stat 04/22/19 00:34 Ordered EKG 12 Lead [EK] Routine Ther 04/21/19 22:30 Ordered Medication Orders Clonidine HCl (Catapres) 0.2 mg PO DAILY STACI Last Admin: 04/22/19 08:53 Dose: 0.2 mg Donepezil HCl (Aricept) 5 mg PO BEDTIME STACI Furosemide (Lasix) 40 mg IVPUSH DAILY STACI Last Admin: 01/14/20 08:53 Dose: 40 mg Insulin Glargine (Lantus Solostar) 20 units SUBCUT BEDTIME [facility] Insulin Glargine (Lantus Solostar) 15 units SUBCUT DAILY [facility] Loperamide HCl (Imodium) 4 mg PO DAILY PRN PRN Reason: Diarrhea Losartan Potassium (Cozaar) 100 mg PO DAILY [facility] Last Admin: 04/22/19 08:52 Dose: 100 mg Nystatin (Nystop) 0 gm TOP BID [facility] Potassium Chloride (Klor-Con M20) 20 meq PO BID [facility] Last Admin: 04/22/19 08:53 Dose: 20 meq Sodium Chloride (Saline Flush) 10 ml FLUSH ASDIRECTED PRN PRN Reason: Keep Vein Open Last Admin: 04/22/19 08:57 Dose: 10 ml Sulfasalazine (Sulfasalazine) 500 mg PO BIDMEALS [facility] Last Admin: 04/22/19 08:52 Dose: 500 mg Trazodone HCl (Trazodone) 100 mg PO BEDTIME [facility] Warfarin Sodium (Coumadin Sliding Scale) 1 each PO ASDIRECTED [facility] Warfarin Sodium 5 mg/ Warfarin (Sodium 2.5 mg) 7.5 mg PO ONETIME ONE Stop: 04/22/19 16:01 Assessment/Plan Comment:: 1. Admitted for further observation, PT/OT, telemetry monitoring. 2. MRI with contrast head due to acute change from last week(he had been able to use walker and ambulate with staff to MRI last week, needs 3 person assist for transfers). If no changes could be progressive supranuclear palsy. On coumadin, INR dosed by pharmacy for goal 2-3. 3. CHF: unable to get ECHO today, if still here on Sunday would order then otherwise will do as outpatient. Cotton for I&Os, continue diuresing. 4. Atrial fibrillation with bradycardia, he is not on any rate control medications, will continue to monitor. EKG report from [place] in 2014 showed atrial fibrillation with RBBB, rate 64, left anterior fascicular block, inferior infarct age undetermined. Left axis deviation. EKG today is unchanged but more bradycardiac. 5. Diabetic diet with accuchecks ac & hs, Lantus 20 units at bedtime, BS 103 this morning so AM dose held for now. 6. PT/OT evaluation for weakness/fall. 7. Continue Sulfasalazine per family request as they don't want him to have recurrence of diarrhea. 8. CPAP at night. 9. FULL CODE on admit. - Mortality Measure Prognosis:: Poor
[2019-04-22] MEDS ORDERED: Gadoteridol 279.3 MG/ML 20 ML SDV IV ONE (13:45)
[2019-04-22] MEDS: Nystatin Topical Powder 15 GM Bottle TOP SCH ×2 (14:35→20:02)
[2019-04-22] MEDS: Loperamide 2 MG Cap PO SCH (14:35)
[2019-04-22] MEDS ORDERED: Warfarin 2.5 MG Tab PO SCH (16:00)
[2019-04-22] MEDS ORDERED: Warfarin 5 MG, Warfarin 2.5 MG PO ONE ×2 (16:00)
[2019-04-22] MEDS ORDERED: cefTRIAXone 1 GM Vial IVPUSH SCH (16:30)
[2019-04-22] MEDS: Donepezil 5 MG Tab PO SCH (20:01)
[2019-04-22] MEDS: Tamsulosin 0.4 MG Cap.ER PO SCH (20:01)
[2019-04-22] MEDS: traZODone 50 MG Tab PO SCH (20:02)
[2019-04-22] MEDS ORDERED: traZODone 100 MG Tab PO SCH (21:00)
[2019-04-23] MEDS ORDERED: Warfarin 5 MG Tab PO SCH ×2 (00:29→16:00)
[2019-04-23] MEDS: sulfaSALAzine 500 MG Tab PO SCH ×2 (08:02→18:00)
[2019-04-23] MEDS ORDERED: cefTRIAXone 1 GM Vial IM SCH ×2 (08:21→16:30)
[2019-04-23] MEDS ORDERED: Loperamide 2 MG Cap PO SCH (09:00)
[2019-04-23] MEDS ORDERED: Insulin Glargine,Human Rec. Analog 100 Units/ML 3 ML Pen SUBCUT SCH (09:00)
--- NOTE | 2019-04-23 10:10 | PCM.PN ---
- General Info Date of Service: 04/23/19 Admission Dx/Problem (Free Text): Found to have left CVA yesterday on MRI which was new from 04/15 MRI, some improvement of right hand/arm weakness today. Had approximately 2 L urine output yesterday, urine blood tinged, suspected UTI, treating with Rocephin while awaiting culture results. No abdominal pain today. Feels like he has to have a bowel movement. Also yeast infection under his pannus and stage 1 ulcer on right 2nd toe. INR subtherapeutic today and on admission. - Patient Data Vitals - Most Recent: Last Vital Signs Temp 97.6 F 04/23/19 04:00 Pulse 64 04/23/19 04:00 Resp 18 04/23/19 04:00 BP 149/75 H 04/23/19 04:00 Pulse Ox 96 04/23/19 04:00 Weight - Most Recent: 310 lb 11.2 oz I&O - Last 24 Hours: Intake & Output 04/22/19 04/23/19 04/23/19 22:59 06:59 14:59 Intake Total 120 Output Total 700 750 Balance -580 -750 Lab Results Last 24 Hours: Laboratory Results - last 24 hr 04/22/19 04/22/19 04/22/19 Range/Units 12:17 16:00 17:34 PT (8.7-11.1) INR (0.89-1.13) Sodium (135-145) mmol/L Potassium (3.5-5.3) mmol/L Chloride (100-110) mmol/L Carbon Dioxide (21-32) mmol/L BUN (7-18) mg/dL Creatinine (0.70-1.30) mg/dL Est Cr Clr Drug Dosing mL/min Estimated GFR (MDRD) (>60) BUN/Creatinine Ratio (9-20) Glucose (80-116) mg/dL POC Glucose 127 H 292 H D (80-116) mg/dL Calcium (8.6-10.2) mg/dL Triglycerides (15-150) mg/dL Cholesterol (50-200) mg/dL LDL Cholesterol Direct (60-130) mg/dL HDL Cholesterol (40-75) mg/dL Cholesterol/HDL Ratio (0-5) Urine Color Yellow (YELLOW) Urine Appearance Cloudy (CLEAR) Urine pH 5.0 (5.0-6.5) Ur Specific [place] 1.020 (1.010-1.025) Urine Protein 500 H (NEGATIVE) mg/dL Urine Glucose (UA) Normal (NORMAL) mg/dL Urine Ketones 15 H (NEGATIVE) mg/dL Urine Occult Blood Large H (NEGATIVE) Urine Nitrite Negative (NEGATIVE) Urine Bilirubin Negative (NEGATIVE) Urine Urobilinogen Normal (NEGATIVE) mg/dL Ur Leukocyte Esterase Moderate H (NEGATIVE) Urine RBC >100 H (0-5) Urine WBC 20-30 H (0-5) Ur Squamous Epith Cells Occasional (NS,R,O) Urine Bacteria Moderate H (NS) 04/22/19 04/23/19 04/23/19 Range/Units 20:12 06:15 06:15 PT 15.6 H (8.7-11.1) INR 1.62 H (0.89-1.13) Sodium 143 (135-145) mmol/L Potassium 3.5 (3.5-5.3) mmol/L Chloride 105 (100-110) mmol/L Carbon Dioxide 31 (21-32) mmol/L BUN 17 (7-18) mg/dL Creatinine 1.0 (0.70-1.30) mg/dL Est Cr Clr Drug Dosing 76.17 mL/min Estimated GFR (MDRD) > 60 (>60) BUN/Creatinine Ratio 17.0 (9-20) Glucose 64 L (80-116) mg/dL POC Glucose 258 H (80-116) mg/dL Calcium 8.4 L (8.6-10.2) mg/dL Triglycerides 70 (15-150) mg/dL Cholesterol 179 (50-200) mg/dL LDL Cholesterol Direct 127 (60-130) mg/dL HDL Cholesterol 28 L (40-75) mg/dL Cholesterol/HDL Ratio 6.4 H (0-5) Urine Color (YELLOW) Urine Appearance (CLEAR) Urine pH (5.0-6.5) Ur Specific [place] (1.010-1.025) Urine Protein (NEGATIVE) mg/dL Urine Glucose (UA) (NORMAL) mg/dL Urine Ketones (NEGATIVE) mg/dL Urine Occult Blood (NEGATIVE) Urine Nitrite (NEGATIVE) Urine Bilirubin (NEGATIVE) Urine Urobilinogen (NEGATIVE) mg/dL Ur Leukocyte Esterase (NEGATIVE) Urine RBC (0-5) Urine WBC (0-5) Ur Squamous Epith Cells (NS,R,O) Urine Bacteria (NS) Med Orders - Current: Current Medications Ceftriaxone Sodium (Rocephin) 1 gm IM Q24H [facility] Stop: 04/28/19 16:31 Clonidine HCl (Catapres) 0.2 mg PO DAILY [facility] Last Admin: 04/22/19 08:53 Dose: 0.2 mg Donepezil HCl (Aricept) 5 mg PO BEDTIME [facility] Last Admin: 04/22/19 20:01 Dose: 5 mg Enoxaparin Sodium (Lovenox) 100 mg SUBCUT Q12H [facility] Stop: 04/23/19 21:16 Enoxaparin Sodium (Lovenox) 40 mg SUBCUT Q12H [facility] Stop: 04/23/19 21:16 Furosemide (Lasix) 40 mg PO DAILY [facility] Insulin Glargine (Lantus Solostar) 18 units SUBCUT BEDTIME [facility] Loperamide HCl (Imodium) 4 mg PO DAILY [facility] Last Admin: 04/22/19 14:35 Dose: 4 mg Losartan Potassium (Cozaar) 100 mg PO DAILY [facility] Last Admin: 04/22/19 08:52 Dose: 100 mg Nystatin (Nystop) 0 gm TOP BID [facility] Last Admin: 04/22/19 20:02 Dose: 1 applic Potassium Chloride (Klor-Con M20) 20 meq PO BID [facility] Last Admin: 04/22/19 20:01 Dose: 20 meq Rosuvastatin Calcium (Crestor) 5 mg PO BEDTIME [facility] Saccharomyces Boulardii (Florastor) 250 mg PO DAILY [facility] Sodium Chloride (Saline Flush) 10 ml FLUSH ASDIRECTED PRN PRN Reason: Keep Vein Open Last Admin: 04/22/19 08:57 Dose: 10 ml Sulfasalazine (Sulfasalazine) 500 mg PO BIDMEALS [facility] Last Admin: 04/23/19 08:02 Dose: 500 mg Tamsulosin HCl (Flomax) 0.4 mg PO BEDTIME [facility] Last Admin: 04/22/19 20:01 Dose: 0.4 mg Trazodone HCl (Trazodone) 100 mg PO BEDTIME [facility] Last Admin: 04/22/19 20:02 Dose: 100 mg Warfarin Sodium (Coumadin Sliding Scale) 1 each PO ASDIRECTED [facility] Warfarin Sodium 5 mg/ Warfarin (Sodium 2.5 mg) 7.5 mg PO ONETIME ONE Stop: 04/23/19 16:01 Discontinued Medications Acetaminophen (Tylenol Extra Strength) 1,000 mg PO ONETIME ONE Stop: 04/22/19 04:04 Last Admin: 04/22/19 04:23 Dose: 1,000 mg Ceftriaxone Sodium (Rocephin) 1 gm IVPUSH Q24H [facility] Stop: 04/27/19 16:31 Last Admin: 04/22/19 16:53 Dose: 1 gm Furosemide (Lasix) 40 mg IVPUSH NOW ONE Stop: 04/21/19 23:08 Last Admin: 04/21/19 23:27 Dose: 40 mg Furosemide (Lasix) 40 mg IVPUSH DAILY [facility] Last Admin: 04/22/19 08:53 Dose: 40 mg Gadoteridol (Prohance) 20 ml IV . DIRECTED ONE Stop: 04/22/19 13:46 Last Admin: 04/22/19 13:45 Dose: 20 ml Hydralazine HCl (Apresoline) 10 mg IVPUSH ONETIME ONE Stop: 04/21/19 23:09 Last Admin: 04/21/19 23:23 Dose: 10 mg Insulin Glargine (Lantus Solostar) 0 - 15 units SUBCUT BEDTIME [facility] Insulin Glargine (Lantus Solostar) 0 - 15 units SUBCUT QAM [facility] Insulin Glargine (Lantus Solostar) 0 - 15 units SUBCUT DAILY [facility] Insulin Glargine (Lantus Solostar) 20 units SUBCUT BEDTIME [facility] Last Admin: 04/22/19 20:05 Dose: 20 units Insulin Glargine (Lantus Solostar) 15 units SUBCUT DAILY [facility] Loperamide HCl (Imodium) 4 mg PO DAILY [facility] Loperamide HCl (Imodium) 4 mg PO DAILY PRN PRN Reason: Diarrhea Trazodone HCl (Trazodone) 100 mg PO ONETIME ONE Stop: 04/22/19 04:31 Last Admin: 04/22/19 04:23 Dose: 100 mg Warfarin Sodium (Coumadin) 2.5 mg PO TUFR [facility] Last Admin: 04/22/19 01:25 Dose: 2.5 mg Warfarin Sodium (Coumadin) 5 mg PO SUMOWETHSA [facility] Warfarin Sodium (Coumadin) 2.5 mg PO TuFr@1600 [facility] Warfarin Sodium (Coumadin) 5 mg PO SuMoWeThSa@1600 [facility] Warfarin Sodium 5 mg/ Warfarin (Sodium 2.5 mg) 7.5 mg PO ONETIME ONE Stop: 04/22/19 16:01 Last Admin: 04/22/19 16:52 Dose: 7.5 mg - Exam General: Alert, Oriented (person, somewhat confused.), Cooperative, No Acute Distress Lungs: Clear to Auscultation, Normal Respiratory Effort Cardiovascular: Regular Rate, Irregular Rhythm GI/Abdominal Exam: Normal Bowel Sounds, Soft, Non-Tender, No Distention Extremities: Pedal Edema (1+) Skin: Other (stasis dermatitis BLE, stage 1 ulcer on right 2nd toe, 1 cm medial side.) Neurological: Normal Speech, Other (Right hand public area attendant 3+/5, right arm 4/5.) Sepsis Event Note - Evaluation Sepsis Screening Result: No Definite Risk - Focused Exam Vital Signs: Vital Signs Temp Pulse Resp BP Pulse Ox 04/23/19 04:00 97.6 F 64 18 149/75 H 96 04/23/19 00:35 97 04/23/19 00:00 97.6 F 56 L 18 149/67 H 97 Date Exam was Performed: 04/23/19 Time Exam was Performed: 10:17 - Problem List & Annotations (1) Left acute arterial ischemic stroke, 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) SNOMED Code(s): 214327248, 239133410 Code(s): I63.532 - CEREB INFRC D/T UNSP OCCLS OR STENOS OF LEFT POST CEREB ART Status: Acute Current Visit: Yes (2) UTI (urinary tract infection) SNOMED Code(s): 98969135 Code(s): N39.0 - URINARY TRACT INFECTION, SITE NOT SPECIFIED Status: Acute Current Visit: Yes (3) CHF (congestive heart failure) SNOMED Code(s): 81066441 Code(s): I50.9 - HEART FAILURE, UNSPECIFIED Status: Acute Current Visit: Yes (4) Acute right-sided weakness SNOMED Code(s): 023818815 Code(s): R53.1 - WEAKNESS Status: Acute Current Visit: Yes (5) Fall as cause of accidental injury at home as place of occurrence SNOMED Code(s): 53927007 Code(s): W19.XXXA - UNSPECIFIED FALL, INITIAL ENCOUNTER; Y92.009 - UNSP PLACE IN UNSP NON-INSTITUT (PRIVATE) RESIDENCE PLACE Status: Acute Current Visit: Yes (6) Functional gait abnormality SNOMED Code(s): 83420304375925 Code(s): R26.89 - OTHER ABNORMALITIES OF GAIT AND MOBILITY Status: Acute Current Visit: Yes (7) Chronic atrial fibrillation SNOMED Code(s): 703769254 Code(s): I48.20 - CHRONIC ATRIAL FIBRILLATION, UNSPECIFIED Status: Chronic Current Visit: Yes (8) Type 2 diabetes mellitus SNOMED Code(s): 46110707 Code(s): E11.9 - TYPE 2 DIABETES MELLITUS WITHOUT COMPLICATIONS Status: Acute Current Visit: Yes (9) Hyperlipidemia SNOMED Code(s): 63248266 Code(s): E78.5 - HYPERLIPIDEMIA, UNSPECIFIED Status: Acute Current Visit : Yes (10) Chronic renal failure, stage 3 (moderate) SNOMED Code(s): 12773084, 244668335 Code(s): N18.3 - CHRONIC KIDNEY DISEASE, STAGE 3 (MODERATE) Status: Acute Current Visit: Yes (11) Memory loss SNOMED Code(s): 98520784 Code(s): R41.3 - OTHER AMNESIA Status: Chronic Current Visit: Yes (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 SNOMED Code(s): 517786597 Code(s): Z79.01 - RETIREMENT (CURRENT) USE OF ANTICOAGULANTS Status: Chronic Current Visit: Yes (13) Hypertension SNOMED Code(s): 77004831 Code(s): I10 - ESSENTIAL (PRIMARY) HYPERTENSION Status: Chronic Current Visit: Yes (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 SNOMED Code(s): 42260899029928581 Code(s): J44.9 - CHRONIC OBSTRUCTIVE PULMONARY DISEASE, UNSPECIFIED Status : Chronic Current Visit: Yes (15) History of carcinoma in situ of colon SNOMED Code(s): 189007548 Code(s): Z86.004 - PERS HX OF IN-SITU NEOPLASM OF OTHER AND UNSP DGSTV ORGS Status: Acute Current Visit: Yes (16) Fluid retention SNOMED Code(s): 80379753 Code(s): R60.9 - EDEMA, UNSPECIFIED Status: Resolved Current Visit: Yes - Problem List Review Problem List Initiated/Reviewed/Updated: Yes - My Orders Last 24 Hours: My Active Orders 04/22/19 14:00 Nystatin [Nystop] 0 gm TOP BID 04/22/19 14:15 Loperamide [Imodium] 4 mg PO DAILY 04/22/19 14:28 Daily Weight [Height and Weight] [RC] 06 04/22/19 14:59 Wound Care [RC] 08 04/22/19 16:00 CULTURE URINE [] Routine 04/22/19 21:00 Tamsulosin [Flomax] 0.4 mg PO BEDTIME 04/23/19 08:30 Saccharomyces Boulardii [Florastor] 250 mg PO DAILY 04/23/19 09:00 Furosemide [Lasix] 40 mg PO DAILY 04/23/19 09:15 Enoxaparin [Lovenox] 100 mg SUBCUT Q12H Enoxaparin [Lovenox] 40 mg SUBCUT Q12H 04/23/19 14:00 Carotid Comp [US] Routine Echo Comp wo Cont [US] Routine 04/23/19 16:00 Warfarin [Coumadin] 7.5 mg PO ONETIME ONE 04/23/19 16:30 cefTRIAXone [Rocephin] 1 gm IM Q24H 04/23/19 21:00 Insulin Glarg,Human.Rec.Analog [LantUS Solostar] 18 units SUBCUT BEDTIME Rosuvastatin [Crestor] 5 mg PO BEDTIME 04/24/19 00:10 Insert Cotton Catheter [Insert Urinary Catheter] [OM.PC] Q24H - Plan Plan:: 1. Left posterior cerebral artery CVA. PT/OT, most likely need swing bed vs NH for rehab. INR subtherapeutic, Lovenox 1 mg/kg q12 x 1 day, repeat INR tomorrow and if needed will repeat Lovenox. On Coumadin, INR dosed by pharmacy for goal 2 -3. Carotid Doppler today with Echo. 2. CHF: ECHO today. Cotton for I&Os, Lasix 40 mg po. Hold HCTZ. 3. UTI: Rocephin IM, pulled out his IV, will see what culture comes back as and then switch to orals. 4. Diabetes: decrease Lantus 18 units at bedtime, BS 64 this morning so AM dose held for now. 5. Continue Sulfasalazine per family request as they don't want him to have recurrence of diarrhea. Also takes Imodium 4 mg daily scheduled. Will monitor for constipation and change to as needed if occurs. 6. CPAP at night.
[2019-04-23] MEDS: Saccharomyces Boulardii (Probiotic) 250 MG Cap PO SCH ×2 (10:30→10:47)
[2019-04-23] MEDS: Potassium Chloride 20 MEQ Tab.ER PO SCH ×2 (10:31→21:12)
[2019-04-23] MEDS: Furosemide 40 MG Tab PO SCH (10:31)
[2019-04-23] MEDS: Loperamide 2 MG Cap PO SCH (10:31)
[2019-04-23] MEDS: Enoxaparin 100 MG/1 ML Syringe SUBCUT SCH ×2 (10:32→21:14)
[2019-04-23] MEDS: Nystatin Topical Powder 15 GM Bottle TOP SCH ×2 (10:32→21:13)
[2019-04-23] MEDS: Enoxaparin 40 MG/0.4 ML Syringe SUBCUT SCH ×2 (10:33→21:13)
[2019-04-23] MEDS: cloNIDine 0.1 MG Tab PO SCH (10:46)
[2019-04-23] MEDS: Losartan 100 MG Tab PO SCH (10:47)
[2019-04-23] MEDS ORDERED: Perflutren Lipid Microspheres 2.2 MG/2 ML SDV IVPUSH ONE (14:59)
--- NOTE | 2019-04-23 15:56 | US ---
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 DUPLEX ULTRASOUND CEREBRAL ARTERIES Utilizing 2-D realtime, duplex Doppler, spectral analysis and color-flow imaging, examination of the cerebral arteries was obtained 04/23/19 - no comparisons available, including the common carotid arteries, internal carotid arteries, external carotid arteries, vertebral arteries, as well as the subclavian arteries. There is mild to moderate intimal thickening somewhat patchy in appearance. Calcified mostly smooth plaques are noted, but it is difficult to exclude ulceration with the calcification present. No significant peak systolic velocity elevation was identified with stenosis in the ICAs in the range of less than 50% stenosis. The vertebral arteries were antegrade in flow bilaterally. IMPRESSION: 1. Less than 50% stenosis both ICAs. 2. Calcified plaques, possible minimal ulcerations - correlate clinically in that regard. 3. Antegrade vertebral artery flow bilaterally. MTDD
[2019-04-23] MEDS ORDERED: Warfarin 5 MG, Warfarin 2.5 MG PO ONE ×2 (16:00)
[2019-04-23] MEDS: Donepezil 5 MG Tab PO SCH (21:11)
[2019-04-23] MEDS: Rosuvastatin 10 MG Tab PO SCH (21:12)
[2019-04-23] MEDS: Tamsulosin 0.4 MG Cap.ER PO SCH (21:12)
[2019-04-23] MEDS: traZODone 50 MG Tab PO SCH (21:13)
[2019-04-23] MEDS: Insulin Glargine,Human Rec. Analog 100 Units/ML 3 ML Pen SUBCUT SCH (21:14)
[2019-04-23] MEDS ORDERED: diphenhydrAMINE 25 MG Cap PO ONE (23:11)
[2019-04-24] MEDS: sulfaSALAzine 500 MG Tab PO SCH ×2 (08:30→17:58)
[2019-04-24] MEDS: Losartan 100 MG Tab PO SCH (09:38)
[2019-04-24] MEDS: Loperamide 2 MG Cap PO SCH (09:38)
[2019-04-24] MEDS: cloNIDine 0.1 MG Tab PO SCH (09:38)
[2019-04-24] MEDS: Saccharomyces Boulardii (Probiotic) 250 MG Cap PO SCH (09:38)
[2019-04-24] MEDS: Furosemide 40 MG Tab PO SCH (09:39)
[2019-04-24] MEDS: Nystatin Topical Powder 15 GM Bottle TOP SCH ×2 (09:39→20:15)
[2019-04-24] MEDS: Potassium Chloride 20 MEQ Tab.ER PO SCH ×2 (09:39→20:13)
[2019-04-24] MEDS: Enoxaparin 100 MG/1 ML Syringe SUBCUT SCH ×2 (10:24→22:40)
[2019-04-24] MEDS: Enoxaparin 40 MG/0.4 ML Syringe SUBCUT SCH ×2 (10:24→22:41)
--- NOTE | 2019-04-24 14:29 | PCM.PN ---
- General Info Date of Service: 04/24/19 Admission Dx/Problem (Free Text): Patient doing okay this morning, didn't sleep well last night. 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 Pulling on his Cotton so will remove today and see how he does. Weight is down to 308. Had good bowel movement yesterday. Echo & Carotid Doppler done yesterday. - Patient Data Vitals - Most Recent: Last Vital Signs Temp 98.4 F 04/24/19 13:00 Pulse 54 L 04/24/19 13:00 Resp 20 04/24/19 13:00 BP 124/80 04/24/19 13:00 Pulse Ox 98 04/24/19 13:00 Weight - Most Recent: 308 lb 9.6 oz I&O - Last 24 Hours: Intake & Output 04/23/19 04/24/19 04/24/19 22:59 06:59 14:59 Intake Total 200 200 800 Output Total 350 1300 175 Balance -150 -1100 625 Lab Results Last 24 Hours: Laboratory Results - last 24 hr 04/23/19 04/23/19 04/24/19 Range/Units 17:42 21:08 06:06 PT (8.7-11.1) INR (0.89-1.13) POC Glucose 193 H 245 H 138 H D (80-116) mg/dL 04/24/19 04/24/19 Range/Units 08:15 11:41 PT 17.0 H (8.7-11.1) INR 1.76 H (0.89-1.13) POC Glucose 166 H (80-116) mg/dL [place] Results Last 24 Hours: Microbiology 04/22/19 16:00 Urine Culture - Preliminary Urine, Catheterized NO GROWTH AFTER 1 DAY Med Orders - Current: Current Medications Clonidine HCl (Catapres) 0.2 mg PO DAILY [facility] Last Admin: 04/24/19 09:38 Dose: 0.2 mg Donepezil HCl (Aricept) 5 mg PO BEDTIME [facility] Last Admin: 04/23/19 21:11 Dose: 5 mg Enoxaparin Sodium (Lovenox) 100 mg SUBCUT Q12H [facility] Stop: 04/24/19 21:46 Last Admin: 04/24/19 10:24 Dose: 100 mg Enoxaparin Sodium (Lovenox) 40 mg SUBCUT Q12H [facility] Stop: 04/24/19 21:46 Last Admin: 04/24/19 10:24 Dose: 40 mg Furosemide (Lasix) 40 mg PO DAILY [facility] Last Admin: 04/24/19 09:39 Dose: 40 mg Insulin Glargine (Lantus Solostar) 18 units SUBCUT BEDTIME [facility] Last Admin: 04/23/19 21:14 Dose: 18 units Loperamide HCl (Imodium) 4 mg PO DAILY [facility] Last Admin: 04/24/19 09:38 Dose: 4 mg Losartan Potassium (Cozaar) 100 mg PO DAILY [facility] Last Admin: 04/24/19 09:38 Dose: 100 mg Nystatin (Nystop) 0 gm TOP BID [facility] Last Admin: 04/24/19 09:39 Dose: 1 applic Potassium Chloride (Klor-Con M20) 20 meq PO BID [facility] Last Admin: 04/24/19 09:39 Dose: 20 meq Quetiapine Fumarate (Seroquel) 12.5 mg PO BEDTIME [facility] Rosuvastatin Calcium (Crestor) 5 mg PO BEDTIME [facility] Last Admin: 04/23/19 21:12 Dose: 5 mg Saccharomyces Boulardii (Florastor) 250 mg PO DAILY [facility] Last Admin: 04/24/19 09:38 Dose: 250 mg Sodium Chloride (Saline Flush) 10 ml FLUSH ASDIRECTED PRN PRN Reason: Keep Vein Open Last Admin: 04/22/19 08:57 Dose: 10 ml Sulfasalazine (Sulfasalazine) 500 mg PO BIDMEALS [facility] Last Admin: 04/24/19 08:30 Dose: 500 mg Tamsulosin HCl (Flomax) 0.4 mg PO BEDTIME [facility] Last Admin: 04/23/19 21:12 Dose: 0.4 mg Trazodone HCl (Trazodone) 75 mg PO BEDTIME [facility] Warfarin Sodium (Coumadin Sliding Scale) 1 each PO ASDIRECTED [facility] Warfarin Sodium 5 mg/ Warfarin (Sodium 2.5 mg) 7.5 mg PO ONETIME ONE Stop: 04/24/19 16:01 Discontinued Medications Acetaminophen (Tylenol Extra Strength) 1,000 mg PO ONETIME ONE Stop: 04/22/19 04:04 Last Admin: 04/22/19 04:23 Dose: 1,000 mg Ceftriaxone Sodium (Rocephin) 1 gm IVPUSH Q24H [facility] Stop: 04/27/19 16:31 Last Admin: 04/22/19 16:53 Dose: 1 gm Ceftriaxone Sodium (Rocephin) 1 gm IM Q24H [facility] Stop: 04/28/19 16:31 Diphenhydramine HCl (Benadryl) 25 mg PO ONETIME ONE Stop: 04/23/19 23:12 Last Admin: 04/23/19 23:32 Dose: 25 mg Enoxaparin Sodium (Lovenox) 100 mg SUBCUT Q12H [facility] Stop: 04/23/19 21:16 Last Admin: 04/23/19 21:14 Dose: 100 mg Enoxaparin Sodium (Lovenox) 40 mg SUBCUT Q12H [facility] Stop: 04/23/19 21:16 Last Admin: 04/23/19 21:13 Dose: 40 mg Furosemide (Lasix) 40 mg IVPUSH NOW ONE Stop: 04/21/19 23:08 Last Admin: 04/21/19 23:27 Dose: 40 mg Furosemide (Lasix) 40 mg IVPUSH DAILY [facility] Last Admin: 04/22/19 08:53 Dose: 40 mg Gadoteridol (Prohance) 20 ml IV . DIRECTED ONE Stop: 04/22/19 13:46 Last Admin: 04/22/19 13:45 Dose: 20 ml Hydralazine HCl (Apresoline) 10 mg IVPUSH ONETIME ONE Stop: 04/21/19 23:09 Last Admin: 04/21/19 23:23 Dose: 10 mg Insulin Glargine (Lantus Solostar) 0 - 15 units SUBCUT BEDTIME [facility] Insulin Glargine (Lantus Solostar) 0 - 15 units SUBCUT QAM [facility] Insulin Glargine (Lantus Solostar) 0 - 15 units SUBCUT DAILY [facility] Insulin Glargine (Lantus Solostar) 20 units SUBCUT BEDTIME [facility] Last Admin: 04/22/19 20:05 Dose: 20 units Insulin Glargine (Lantus Solostar) 15 units SUBCUT DAILY [facility] Loperamide HCl (Imodium) 4 mg PO DAILY [facility] Loperamide HCl (Imodium) 4 mg PO DAILY PRN PRN Reason: Diarrhea Perflutren Lipid Microsphere (Definity) 2.2 mg IVPUSH PREPRO ONE Stop: 04/23/19 15:00 Last Admin: 04/23/19 15:16 Dose: 2.2 mg Trazodone HCl (Trazodone) 100 mg PO BEDTIME [facility] Last Admin: 04/23/19 21:13 Dose: 100 mg Trazodone HCl (Trazodone) 100 mg PO ONETIME ONE Stop: 04/22/19 04:31 Last Admin: 04/22/19 04:23 Dose: 100 mg Warfarin Sodium (Coumadin) 2.5 mg PO TUFR [facility] Last Admin: 04/22/19 01:25 Dose: 2.5 mg Warfarin Sodium (Coumadin) 5 mg PO SUMOWETHSA [facility] Warfarin Sodium (Coumadin) 2.5 mg PO TuFr@1600 [facility] Warfarin Sodium (Coumadin) 5 mg PO SuMoWeThSa@1600 [facility] Warfarin Sodium 5 mg/ Warfarin (Sodium 2.5 mg) 7.5 mg PO ONETIME ONE Stop: 04/22/19 16:01 Last Admin: 04/22/19 16:52 Dose: 7.5 mg Warfarin Sodium 5 mg/ Warfarin (Sodium 2.5 mg) 7.5 mg PO ONETIME ONE Stop: 04/23/19 16:01 Last Admin: 04/23/19 16:08 Dose: 7.5 mg - Exam General: Alert, Oriented (person, pleasantly confused), Cooperative, No Acute Distress Lungs: Clear to Auscultation, Normal Respiratory Effort Cardiovascular: Regular Rate, Regular Rhythm GI/Abdominal Exam: Normal Bowel Sounds, Soft, Non-Tender, No Distention Extremities: Pedal Edema (trace; stasis dermatitis ) Peripheral Pulses: 2+: Radial (L), Radial (R) Skin: Warm, Dry, Intact Sepsis Event Note - Evaluation Sepsis Screening Result: No Definite Risk - Focused Exam Vital Signs: Vital Signs Temp Pulse Resp BP BP Pulse Ox 04/24/19 13:00 98.4 F 54 L 20 124/80 98 04/24/19 09:38 152/73 H 04/24/19 08:00 98.1 F 68 20 184/88 H 98 04/24/19 04:00 99.2 F 58 L 18 163/83 H 96 Date Exam was Performed: 04/24/19 Time Exam was Performed: 14:18 - Problem List & Annotations (1) Left acute arterial ischemic stroke, 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) SNOMED Code(s): 342253905, 295960287 Code(s): I63.532 - CEREB INFRC D/T UNSP OCCLS OR STENOS OF LEFT POST CEREB ART Status: Acute Current Visit: Yes (2) UTI (urinary tract infection) SNOMED Code(s): 12301920 Code(s): N39.0 - URINARY TRACT INFECTION, SITE NOT SPECIFIED Status: Resolved Current Visit: Yes (3) CHF (congestive heart failure) SNOMED Code(s): 91633525 Code(s): I50.9 - HEART FAILURE, UNSPECIFIED Status: Acute Current Visit: Yes (4) Acute right-sided weakness SNOMED Code(s): 982756673 Code(s): R53.1 - WEAKNESS Status: Acute Current Visit: Yes (5) Fall as cause of accidental injury at home as place of occurrence SNOMED Code(s): 11987695 Code(s): W19.XXXA - UNSPECIFIED FALL, INITIAL ENCOUNTER; Y92.009 - UNSP PLACE IN [facility]NS [facility]PR[facility] RESIDENCE PLACE Status: Acute Current Visit: Yes (6) Functional gait abnormality SNOMED Code(s): 96232882670844 Code(s): R26.89 - OTHER ABNORMALITIES OF GAIT AND MOBILITY Status: Acute Current Visit: Yes (7) Chronic atrial fibrillation SNOMED Code(s): 978891349 Code(s): I48.20 - CHRONIC ATRIAL FIBRILLATION, UNSPECIFIED Status: Chronic Current Visit: Yes (8) Type 2 diabetes mellitus SNOMED Code(s): 85291435 Code(s): E11.9 - TYPE 2 DIABETES MELLITUS WITHOUT COMPLICATIONS Status: Acute Current Visit: Yes (9) Hyperlipidemia SNOMED Code(s): 03052040 Code(s): E78.5 - HYPERLIPIDEMIA, UNSPECIFIED Status: Acute Current Visit : Yes (10) Chronic renal failure, stage 3 (moderate) SNOMED Code(s): 53164291, 155811215 Code(s): N18.3 - CHRONIC KIDNEY DISEASE, STAGE 3 (MODERATE) Status: Acute Current Visit: Yes (11) Memory loss SNOMED Code(s): 84109414 Code(s): R41.3 - OTHER AMNESIA Status: Chronic Current Visit: Yes (12) correction current use of anticoagulant SNOMED Code(s): 955305382 Code(s): Z79.01 - COLOR CHECKER (CURRENT) USE OF ANTICOAGULANTS Status: Chronic Current Visit: Yes (13) Hypertension SNOMED Code(s): 39987169 Code(s): I10 - ESSENTIAL (PRIMARY) HYPERTENSION Status: Chronic Current Visit: Yes (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 SNOMED Code(s): 30390011440947060 Code(s): J44.9 - CHRONIC OBSTRUCTIVE PULMONARY DISEASE, UNSPECIFIED Status : Chronic Current Visit: Yes (15) History of carcinoma in situ of colon SNOMED Code(s): 136742961 Code(s): Z86.004 - PERS HX OF IN-SITU NEOPLASM OF OTHER AND UNSP DGSTV ORGS Status: Acute Current Visit: Yes (16) Fluid retention SNOMED Code(s): 16783282 Code(s): R60.9 - EDEMA, UNSPECIFIED Status: Resolved Current Visit: Yes - Problem List Review Problem List Initiated/Reviewed/Updated: Yes - My Orders Last 24 Hours: My Active Orders 04/23/19 14:54 Echo Comp w Cont [US] Routine 04/23/19 21:00 Insulin Glarg,Human.Rec.Analog [LantUS Solostar] 18 units SUBCUT BEDTIME Rosuvastatin [Crestor] 5 mg PO BEDTIME 04/24/19 09:45 Enoxaparin [Lovenox] 100 mg SUBCUT Q12H Enoxaparin [Lovenox] 40 mg SUBCUT Q12H 04/24/19 16:00 Warfarin [Coumadin] 7.5 mg PO ONETIME ONE 04/24/19 21:00 QUEtiapine [SEROqueL] 12.5 mg PO BEDTIME traZODone 75 mg PO BEDTIME 04/24/19 Lunch Consistent Carbohydrate Diet [DIET] 04/25/19 07:47 INR,PT,PROTHROMBIN TIME [COAG] DAILY 04/26/19 07:47 INR,PT,PROTHROMBIN TIME [COAG] DAILY 04/27/19 07:47 INR,PT,PROTHROMBIN TIME [COAG] DAILY - Plan Plan:: 1. Left posterior cerebral artery CVA. PT/OT, most likely need swing bed vs NH for rehab. INR subtherapeutic, repeat Lovenox until therapeutic, repeat INR tomorrow. On Coumadin, INR dosed by pharmacy for goal 2-3. Carotid Doppler showed <50% stenosis with calcified plaque. 2. CHF: ECHO report pending. D/C [place], Lasix 40 mg po. Hold HCTZ. 3. UC no growth so discontinued Rocephin. 4. Diabetes: decrease Lantus 18 units at bedtime, BS 138 this morning. Will start sliding scale. 5. Continue Sulfasalazine per family request as they don't want him to have recurrence of diarrhea. Also takes Imodium 4 mg daily scheduled. Will monitor for constipation and change to as needed if occurs. 6. CPAP at night. 7. Possible transfer to Swing Bed tomorrow for rehab.
[2019-04-24] MEDS ORDERED: Warfarin 5 MG, Warfarin 2.5 MG PO ONE ×2 (16:00)
[2019-04-24] MEDS: Insulin Lispro 100 Unit/ML 3 ML KwikPen SUBCUT SCH (17:59)
[2019-04-24] MEDS: Rosuvastatin 10 MG Tab PO SCH (20:13)
[2019-04-24] MEDS: Tamsulosin 0.4 MG Cap.ER PO SCH (20:13)
[2019-04-24] MEDS: Donepezil 5 MG Tab PO SCH (20:13)
[2019-04-24] MEDS: Insulin Glargine,Human Rec. Analog 100 Units/ML 3 ML Pen SUBCUT SCH (20:16)
[2019-04-24] MEDS ORDERED: QUEtiapine 25 MG Tab PO SCH (21:00)
[2019-04-24] MEDS ORDERED: traZODone 50 MG Tab PO SCH (21:00)
[2019-04-25] MEDS: Insulin Lispro 100 Unit/ML 3 ML KwikPen SUBCUT SCH ×2 (08:19→12:48)
[2019-04-25] MEDS: Loperamide 2 MG Cap PO SCH (08:20)
[2019-04-25] MEDS: Nystatin Topical Powder 15 GM Bottle TOP SCH (08:20)
[2019-04-25 08:21] VITALS: BP 156/80
[2019-04-25] MEDS: sulfaSALAzine 500 MG Tab PO SCH (08:21)
[2019-04-25] MEDS: Losartan 100 MG Tab PO SCH (08:21)
[2019-04-25] MEDS: Furosemide 40 MG Tab PO SCH (08:21)
[2019-04-25] MEDS: Saccharomyces Boulardii (Probiotic) 250 MG Cap PO SCH (08:21)
[2019-04-25] MEDS: Potassium Chloride 20 MEQ Tab.ER PO SCH (08:21)
[2019-04-25] MEDS: cloNIDine 0.1 MG Tab PO SCH (08:21)
[2019-04-25 11:25] VITALS: PULSE 58
[2019-04-25] MEDS ORDERED: Enoxaparin 100 MG/1 ML Syringe SUBCUT SCH (13:30)
[2019-04-25] MEDS ORDERED: Enoxaparin 40 MG/0.4 ML Syringe SUBCUT SCH (13:30)
--- NOTE | 2019-04-25 14:03 | PCM.PN ---
- General Info Date of Service: 04/25/19 Admission Dx/Problem (Free Text): This 78-year-old male patient with CVA right side with left arm weakness is getting better. He is doing well and has no concerns. He denies dysuria, pyuria , hematuria, chest pain, shortness of breath. - Patient Data Vitals - Most Recent: Last Vital Signs Temp 99.7 F 04/25/19 08:00 Pulse 58 L 04/25/19 08:00 Resp 17 04/25/19 08:00 BP 156/80 H 04/25/19 08:21 Pulse Ox 97 04/25/19 08:00 Weight - Most Recent: 310 lb I&O - Last 24 Hours: Intake & Output 04/24/19 04/25/19 04/25/19 22:59 06:59 14:59 Intake Total 500 400 Balance 500 400 Lab Results Last 24 Hours: Laboratory Results - last 24 hr 04/24/19 04/24/19 04/25/19 Range/Units 17:13 20:09 04:50 PT (8.7-11.1) INR (0.89-1.13) POC Glucose 159 H 213 H 78 L D (80-116) mg/dL 04/25/19 04/25/19 Range/Units 06:55 12:03 PT 18.7 H (8.7-11.1) INR 1.94 H (0.89-1.13) POC Glucose 137 H (80-116) mg/dL [place] Results Last 24 Hours: Microbiology 04/22/19 16:00 Urine Culture - Final Urine, Catheterized NO GROWTH AFTER 2 DAYS Med Orders - Current: Current Medications Clonidine HCl (Catapres) 0.2 mg PO DAILY [facility] Last Admin: 04/25/19 08:21 Dose: 0.2 mg Donepezil HCl (Aricept) 5 mg PO BEDTIME [facility] Last Admin: 04/24/19 20:13 Dose: 5 mg Enoxaparin Sodium (Lovenox) 40 mg SUBCUT Q12H [facility] Stop: 04/26/19 01:31 Enoxaparin Sodium (Lovenox) 100 mg SUBCUT Q12H [facility] Stop: 04/26/19 01:31 Furosemide (Lasix) 40 mg PO DAILY [facility] Last Admin: 04/25/19 08:21 Dose: 40 mg Insulin Glargine (Lantus Solostar) 18 units SUBCUT BEDTIME [facility] Last Admin: 04/24/19 20:16 Dose: 18 units Insulin Human Lispro (Humalog) 0 unit SUBCUT TIDMEALS [facility]; Protocol Last Admin: 04/25/19 12:48 Dose: Not Given Loperamide HCl (Imodium) 4 mg PO DAILY [facility] Last Admin: 04/25/19 08:20 Dose: 4 mg Losartan Potassium (Cozaar) 100 mg PO DAILY [facility] Last Admin: 04/25/19 08:21 Dose: 100 mg Nystatin (Nystop) 0 gm TOP BID [facility] Last Admin: 04/25/19 08:20 Dose: 1 applic Potassium Chloride (Klor-Con M20) 20 meq PO BID [facility] Last Admin: 04/25/19 08:21 Dose: 20 meq Quetiapine Fumarate (Seroquel) 12.5 mg PO BEDTIME [facility] Last Admin: 04/24/19 20:14 Dose: 12.5 mg Rosuvastatin Calcium (Crestor) 5 mg PO BEDTIME [facility] Last Admin: 04/24/19 20:13 Dose: 5 mg Saccharomyces Boulardii (Florastor) 250 mg PO DAILY [facility] Last Admin: 04/25/19 08:21 Dose: 250 mg Sodium Chloride (Saline Flush) 10 ml FLUSH ASDIRECTED PRN PRN Reason: Keep Vein Open Last Admin: 04/22/19 08:57 Dose: 10 ml Sulfasalazine (Sulfasalazine) 500 mg PO BIDMEALS [facility] Last Admin: 04/25/19 08:21 Dose: 500 mg Tamsulosin HCl (Flomax) 0.4 mg PO BEDTIME [facility] Last Admin: 04/24/19 20:13 Dose: 0.4 mg Trazodone HCl (Trazodone) 75 mg PO BEDTIME [facility] Last Admin: 04/24/19 20:14 Dose: 75 mg Warfarin Sodium (Coumadin Sliding Scale) 1 each PO ASDIRECTED [facility] Warfarin Sodium (Coumadin) 10 mg PO ONETIME ONE Stop: 04/25/19 16:01 Discontinued Medications Acetaminophen (Tylenol Extra Strength) 1,000 mg PO ONETIME ONE Stop: 04/22/19 04:04 Last Admin: 04/22/19 04:23 Dose: 1,000 mg Ceftriaxone Sodium (Rocephin) 1 gm IVPUSH Q24H [facility] Stop: 04/27/19 16:31 Last Admin: 04/22/19 16:53 Dose: 1 gm Ceftriaxone Sodium (Rocephin) 1 gm IM Q24H [facility] Stop: 04/28/19 16:31 Diphenhydramine HCl (Benadryl) 25 mg PO ONETIME ONE Stop: 04/23/19 23:12 Last Admin: 04/23/19 23:32 Dose: 25 mg Enoxaparin Sodium (Lovenox) 100 mg SUBCUT Q12H [facility] Stop: 04/23/19 21:16 Last Admin: 04/23/19 21:14 Dose: 100 mg Enoxaparin Sodium (Lovenox) 40 mg SUBCUT Q12H [facility] Stop: 04/23/19 21:16 Last Admin: 04/23/19 21:13 Dose: 40 mg Enoxaparin Sodium (Lovenox) 100 mg SUBCUT Q12H [facility] Stop: 04/24/19 21:46 Last Admin: 04/24/19 22:40 Dose: 100 mg Enoxaparin Sodium (Lovenox) 40 mg SUBCUT Q12H [facility] Stop: 04/24/19 21:46 Last Admin: 04/24/19 22:41 Dose: 40 mg Furosemide (Lasix) 40 mg IVPUSH NOW ONE Stop: 04/21/19 23:08 Last Admin: 04/21/19 23:27 Dose: 40 mg Furosemide (Lasix) 40 mg IVPUSH DAILY [facility] Last Admin: 04/22/19 08:53 Dose: 40 mg Gadoteridol (Prohance) 20 ml IV . DIRECTED ONE Stop: 04/22/19 13:46 Last Admin: 04/22/19 13:45 Dose: 20 ml Hydralazine HCl (Apresoline) 10 mg IVPUSH ONETIME ONE Stop: 04/21/19 23:09 Last Admin: 04/21/19 23:23 Dose: 10 mg Insulin Glargine (Lantus Solostar) 0 - 15 units SUBCUT BEDTIME [facility] Insulin Glargine (Lantus Solostar) 0 - 15 units SUBCUT QAM [facility] Insulin Glargine (Lantus Solostar) 0 - 15 units SUBCUT DAILY [facility] Insulin Glargine (Lantus Solostar) 20 units SUBCUT BEDTIME [facility] Last Admin: 04/22/19 20:05 Dose: 20 units Insulin Glargine (Lantus Solostar) 15 units SUBCUT DAILY [facility] Loperamide HCl (Imodium) 4 mg PO DAILY [facility] Loperamide HCl (Imodium) 4 mg PO DAILY PRN PRN Reason: Diarrhea Perflutren Lipid Microsphere (Definity) 2.2 mg IVPUSH PREPRO ONE Stop: 04/23/19 15:00 Last Admin: 04/23/19 15:16 Dose: 2.2 mg Trazodone HCl (Trazodone) 100 mg PO BEDTIME [facility] Last Admin: 04/23/19 21:13 Dose: 100 mg Trazodone HCl (Trazodone) 100 mg PO ONETIME ONE Stop: 04/22/19 04:31 Last Admin: 04/22/19 04:23 Dose: 100 mg Warfarin Sodium (Coumadin) 2.5 mg PO TUFR [facility] Last Admin: 04/22/19 01:25 Dose: 2.5 mg Warfarin Sodium (Coumadin) 5 mg PO SUMOWETHSA [facility] Warfarin Sodium (Coumadin) 2.5 mg PO TuFr@1600 [facility] Warfarin Sodium (Coumadin) 5 mg PO SuMoWeThSa@1600 [facility] Warfarin Sodium 5 mg/ Warfarin (Sodium 2.5 mg) 7.5 mg PO ONETIME ONE Stop: 04/22/19 16:01 Last Admin: 04/22/19 16:52 Dose: 7.5 mg Warfarin Sodium 5 mg/ Warfarin (Sodium 2.5 mg) 7.5 mg PO ONETIME ONE Stop: 04/23/19 16:01 Last Admin: 04/23/19 16:08 Dose: 7.5 mg Warfarin Sodium 5 mg/ Warfarin (Sodium 2.5 mg) 7.5 mg PO ONETIME ONE Stop: 04/24/19 16:01 Last Admin: 04/24/19 16:06 Dose: 7.5 mg - Exam General: Alert, Oriented, Cooperative Lungs: Clear to Auscultation, Normal Respiratory Effort Cardiovascular: Regular Rate, No Murmurs, Irregular Rhythm, Murmurs Extremities: Other (Left arm weakness but he does have function) Sepsis Event Note - Evaluation Sepsis Screening Result: No Definite Risk - Focused Exam Vital Signs: Vital Signs Temp Pulse Resp BP BP Pulse Ox 04/25/19 08:21 156/80 H 04/25/19 08:00 99.7 F 58 L 17 156/80 H 97 04/25/19 04:00 98.1 F 56 L 18 142/68 H 97 Date Exam was Performed: 04/25/19 Time Exam was Performed: 14:01 - Problem List & Annotations (1) Acute right-sided weakness SNOMED Code(s): 640431145 Code(s): R53.1 - WEAKNESS Status: Acute Current Visit: Yes (2) CHF (congestive heart failure) SNOMED Code(s): 42177399 Code(s): I50.9 - HEART FAILURE, UNSPECIFIED Status: Acute Current Visit: Yes (3) Functional gait abnormality SNOMED Code(s): 21120171796877 Code(s): R26.89 - OTHER ABNORMALITIES OF GAIT AND MOBILITY Status: Acute Current Visit: Yes (4) Hyperlipidemia SNOMED Code(s): 51170635 Code(s): E78.5 - HYPERLIPIDEMIA, UNSPECIFIED Status: Acute Current Visit : Yes (5) Left acute arterial ischemic stroke, 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 (posterior cerebral artery) SNOMED Code(s): 981527278, 185697303 Code(s): I63.532 - CEREB INFRC D/T UNSP OCCLS OR STENOS OF LEFT POST CEREB ART Status: Acute Current Visit: Yes (6) Chronic atrial fibrillation SNOMED Code(s): 704467649 Code(s): I48.20 - CHRONIC ATRIAL FIBRILLATION, UNSPECIFIED Status: Chronic Current Visit: Yes (7) UTI (urinary tract infection) SNOMED Code(s): 21800964 Code(s): N39.0 - URINARY TRACT INFECTION, SITE NOT SPECIFIED Status: Resolved Current Visit: Yes - Problem List Review Problem List Initiated/Reviewed/Updated: Yes - My Orders Last 24 Hours: My Active Orders 04/25/19 13:30 Enoxaparin [Lovenox] 100 mg SUBCUT Q12H Enoxaparin [Lovenox] 40 mg SUBCUT Q12H 04/25/19 16:00 Warfarin [Coumadin] 10 mg PO ONETIME ONE - Plan Plan:: Transferred to swing bed.
--- NOTE | 2019-04-25 14:20 | PCM.DCSUM1 ---
Discharge Summary - Hospital Course Free Text/Narrative:: Hospital course-patient was admitted initial CT showed old infarct. MRIs confirmed the infarct 2 days later. Patient had left arm weakness. He's having some urinary symptoms and was started on some Rocephin culture negative for UTI. He has some groin issues with rash was nystatin was used. His sliding scale for insulin with his long-acting and did really well. Blood pressure is a little bit high. The admitting doctor stopped chlorothiazide and started Lasix and continue the patient also started Crestor once a day. He had echocardiogram and the results are pending at this time. Carotid ultrasound showed less than 50 % stenosis with plaques. Patient slowly recovered at PT/OT. He'll be transferred to swing bed. Brief History: Stephen was brought in by EMS after falling in the bathroom last night. He was dizzy, unsteady, fell hurting his right arm and unable to get up. His called 911. In ER he was weak, unable to stand, short of breath, spoke in broken sentences. No chest pain, cough or abdominal pain. CT head showed no acute stroke. Right arm/hand weakness. He had elevated BNP, diuresed 4L off overnight, Last ECHO was in 2014. Had MRI last week by [facility] for increased memory loss and tremors. 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 He has appointment for neuropsychiatric testing May 08 and due to see Dr Fuentes back again in July. History of CPAP, atrial fibrillation on Coumadin. Has not seen cardiology in the past year. I could not find that history of carotid Doppler in his [facility] Chart. History of Diabetes on Lantus 15 units in am and 20 units at bedtime per his ([place] chart has 20 units in am and 15 units at night). He was being weaned off Sulfasalazine per chart for diarrhea, was on 1 tab four times a day down to twice a day and then off but patient is still taking. Was on Cholestyramine but not taking. Patient has been dropped his cup and tray this morning, marked weakness of right hand. Diagnosis: Stroke: Yes Modified Celeste Scale: Mod.Disablility Requiring Some Help,Able to Walk Without Assistance Modified Benson Scale Score: 3 - Discharge Data Discharge Date: 04/25/19 Discharge Disposition: DC/Tfer W/I Hosp To Swing 61 Condition: Good - Referral to Home Health Primary Care Physician: PCP None - Discharge Diagnosis/Problem(s) (1) Acute right-sided weakness SNOMED Code(s): 306819767 ICD Code: R53.1 - WEAKNESS Status: Acute Current Visit: Yes (2) CHF (congestive heart failure) SNOMED Code(s): 80917178 ICD Code: I50.9 - HEART FAILURE, UNSPECIFIED Status: Acute Current Visit : Yes (3) Functional gait abnormality SNOMED Code(s): 47348641969825 ICD Code: R26.89 - OTHER ABNORMALITIES OF GAIT AND MOBILITY Status: Acute Current Visit: Yes (4) Hyperlipidemia SNOMED Code(s): 84724402 ICD Code: E78.5 - HYPERLIPIDEMIA, UNSPECIFIED Status: Acute Current Visit : Yes (5) Left acute arterial ischemic stroke, 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 COOK (posterior cerebral artery) SNOMED Code(s): 510686101, 509222045 ICD Code: I63.532 - CEREB INFRC D/T UNSP OCCLS OR STENOS OF LEFT POST CEREB ART Status: Acute Current Visit: Yes (6) Chronic atrial fibrillation SNOMED Code(s): 692499250 ICD Code: I48.20 - CHRONIC ATRIAL FIBRILLATION, UNSPECIFIED Status: Chronic Current Visit: Yes (7) UTI (urinary tract infection) SNOMED Code(s): 87488353 ICD Code: N39.0 - URINARY TRACT INFECTION, SITE NOT SPECIFIED Status: Resolved Current Visit: Yes - Patient Summary/Data Consults: Consultations 04/22/19 08:05 OT Evaluation and Treatment [CONS] Routine Please Evaluate and Treat. OT Reason for Consult: ADL's Special Instructions: fall right arm weakness, difficult to transfer This query below is only for informational purposes and is not editable. Admission Diagnosis/Problem: CHF, Congestive heart failure PT Evaluation and Treatment [CONS] Routine Please Evaluate and Treat. PT Reason for Consult: Strengthening Special Instructions: fall, right arm weakness, difficult to transfer This query below is only for informational purposes and is not editable. Admission Diagnosis/Problem: CHF, Congestive heart failure - Discharge Plan Home Medications: Home Meds Glucosam/Chondr/Collagn/Hyalur [Glucosamine & Chondroitin Cap] 1 cap PO DAILY [History] Vitamin B Complex 1 cap PO DAILY 05/30/14 [History] Cholecalciferol (Vitamin D3) [Vitamin D3] 1,000 unit PO DAILY 01/09/16 [History] Zinc 50 mg PO DAILY 01/09/16 [History] cloNIDine [Catapres] 0.2 mg PO DAILY 09/28/17 [History] traZODone 100 mg PO BEDTIME 09/28/17 [History] Donepezil [Aricept] 5 mg PO BEDTIME 01/28/19 [History] Insulin Glargine,Hum.Rec.Anlog [Basaglar Kwikpen U-100] 10 - 20 unit SQ BEDTIME 01/28/19 [History] Lutein/Min/Vit C/Vit E Acetate [Ocuvite Lutein] 1 cap PO DAILY 01/28/19 [History ] Calcium Carbonate/Vitamin D3 [Os-Porter 500+D] 1 each PO DAILY 04/21/19 [History] sulfaSALAzine [Azulfidine] 500 mg PO BIDMEALS 04/21/19 [History] Acetaminophen [Tylenol Extra Strength] 1,000 mg PO ONETIME 04/22/19 [History] Furosemide [Lasix] 40 mg PO DAILY tablet 04/25/19 [Rx] Insulin Lispro [Humalog] 0 unit SUBCUT TIDMEALS pen 04/25/19 [Rx] Loperamide [Imodium] 4 mg PO DAILY cap 04/25/19 [Rx] Losartan [Cozaar] 100 mg PO DAILY tablet 04/25/19 [Rx] Nystatin [Nystop] 0 gm TOP BID bottle 04/25/19 [Rx] Potassium Chloride [Klor-Con M20] 20 meq PO BID tab.er 04/25/19 [Rx] QUEtiapine [SEROquel] 12.5 mg PO BEDTIME tablet 04/25/19 [Rx] Rosuvastatin [Crestor] 5 mg PO BEDTIME tablet 04/25/19 [Rx] Saccharomyces Boulardii [Florastor] 250 mg PO DAILY cap 04/25/19 [Rx] Tamsulosin [Flomax] 0.4 mg PO BEDTIME cap.er 04/25/19 [Rx] Warfarin Sliding Scale [Coumadin Sliding Scale] 1 each PO ASDIRECTED tablet [Rx] Patient Handouts: Tamsulosin capsules, Fall Prevention in the Home, Adult, Fall Prevention in Hospitals, Adult, Venous Thromboembolism Prevention Forms: ED Department Discharge Referrals: PCP,None [Primary Care Provider] - - Discharge Summary/Plan Comment DC Time >30 min.: No - Patient Data Vitals - Most Recent: Last Vital Signs Temp 99.7 F 04/25/19 08:00 Pulse 58 L 04/25/19 08:00 Resp 17 04/25/19 08:00 BP 156/80 H 04/25/19 08:21 Pulse Ox 97 04/25/19 08:00 Weight - Most Recent: 310 lb I&O - Last 24 hours: Intake & Output 04/24/19 04/25/19 04/25/19 22:59 06:59 14:59 Intake Total 500 400 Balance 500 400 Lab Results - Last 24 hrs: Laboratory Results - last 24 hr 04/24/19 04/24/19 04/25/19 Range/Units 17:13 20:09 04:50 PT (8.7-11.1) INR (0.89-1.13) POC Glucose 159 H 213 H 78 L D (80-116) mg/dL 04/25/19 04/25/19 Range/Units 06:55 12:03 PT 18.7 H (8.7-11.1) INR 1.94 H (0.89-1.13) POC Glucose 137 H (80-116) mg/dL [facility] Results - Last 24 hrs: Microbiology 04/22/19 16:00 Urine Culture - Final Urine, Catheterized NO GROWTH AFTER 2 DAYS Med Orders - Current: Current Medications Clonidine HCl (Catapres) 0.2 mg PO DAILY [facility] Last Admin: 04/25/19 08:21 Dose: 0.2 mg Donepezil HCl (Aricept) 5 mg PO BEDTIME [facility] Last Admin: 04/24/19 20:13 Dose: 5 mg Enoxaparin Sodium (Lovenox) 40 mg SUBCUT Q12H [facility] Stop: 04/26/19 01:31 Enoxaparin Sodium (Lovenox) 100 mg SUBCUT Q12H [facility] Stop: 04/26/19 01:31 Furosemide (Lasix) 40 mg PO DAILY [facility] Last Admin: 04/25/19 08:21 Dose: 40 mg Insulin Glargine (Lantus Solostar) 18 units SUBCUT BEDTIME [facility] Last Admin: 04/24/19 20:16 Dose: 18 units Insulin Human Lispro (Humalog) 0 unit SUBCUT TIDMEALS [facility]; Protocol Last Admin: 04/25/19 12:48 Dose: Not Given Loperamide HCl (Imodium) 4 mg PO DAILY [facility] Last Admin: 04/25/19 08:20 Dose: 4 mg Losartan Potassium (Cozaar) 100 mg PO DAILY [facility] Last Admin: 04/25/19 08:21 Dose: 100 mg Nystatin (Nystop) 0 gm TOP BID [facility] Last Admin: 04/25/19 08:20 Dose: 1 applic Potassium Chloride (Klor-Con M20) 20 meq PO BID [facility] Last Admin: 04/25/19 08:21 Dose: 20 meq Quetiapine Fumarate (Seroquel) 12.5 mg PO BEDTIME [facility] Last Admin: 04/24/19 20:14 Dose: 12.5 mg Rosuvastatin Calcium (Crestor) 5 mg PO BEDTIME [facility] Last Admin: 04/24/19 20:13 Dose: 5 mg Saccharomyces Boulardii (Florastor) 250 mg PO DAILY [facility] Last Admin: 04/25/19 08:21 Dose: 250 mg Sodium Chloride (Saline Flush) 10 ml FLUSH ASDIRECTED PRN PRN Reason: Keep Vein Open Last Admin: 04/22/19 08:57 Dose: 10 ml Sulfasalazine (Sulfasalazine) 500 mg PO BIDMEALS [facility] Last Admin: 04/25/19 08:21 Dose: 500 mg Tamsulosin HCl (Flomax) 0.4 mg PO BEDTIME [facility] Last Admin: 04/24/19 20:13 Dose: 0.4 mg Trazodone HCl (Trazodone) 75 mg PO BEDTIME [facility] Last Admin: 04/24/19 20:14 Dose: 75 mg Warfarin Sodium (Coumadin Sliding Scale) 1 each PO ASDIRECTED [facility] Warfarin Sodium (Coumadin) 10 mg PO ONETIME ONE Stop: 04/25/19 16:01 Discontinued Medications Acetaminophen (Tylenol Extra Strength) 1,000 mg PO ONETIME ONE Stop: 04/22/19 04:04 Last Admin: 04/22/19 04:23 Dose: 1,000 mg Ceftriaxone Sodium (Rocephin) 1 gm IVPUSH Q24H [facility] Stop: 04/27/19 16:31 Last Admin: 04/22/19 16:53 Dose: 1 gm Ceftriaxone Sodium (Rocephin) 1 gm IM Q24H [facility] Stop: 04/28/19 16:31 Diphenhydramine HCl (Benadryl) 25 mg PO ONETIME ONE Stop: 04/23/19 23:12 Last Admin: 04/23/19 23:32 Dose: 25 mg Enoxaparin Sodium (Lovenox) 100 mg SUBCUT Q12H [facility] Stop: 04/23/19 21:16 Last Admin: 04/23/19 21:14 Dose: 100 mg Enoxaparin Sodium (Lovenox) 40 mg SUBCUT Q12H [facility] Stop: 04/23/19 21:16 Last Admin: 04/23/19 21:13 Dose: 40 mg Enoxaparin Sodium (Lovenox) 100 mg SUBCUT Q12H [facility] Stop: 04/24/19 21:46 Last Admin: 04/24/19 22:40 Dose: 100 mg Enoxaparin Sodium (Lovenox) 40 mg SUBCUT Q12H [facility] Stop: 04/24/19 21:46 Last Admin: 04/24/19 22:41 Dose: 40 mg Furosemide (Lasix) 40 mg IVPUSH NOW ONE Stop: 04/21/19 23:08 Last Admin: 04/21/19 23:27 Dose: 40 mg Furosemide (Lasix) 40 mg IVPUSH DAILY [facility] Last Admin: 04/22/19 08:53 Dose: 40 mg Gadoteridol (Prohance) 20 ml IV . DIRECTED ONE Stop: 04/22/19 13:46 Last Admin: 04/22/19 13:45 Dose: 20 ml Hydralazine HCl (Apresoline) 10 mg IVPUSH ONETIME ONE Stop: 04/21/19 23:09 Last Admin: 04/21/19 23:23 Dose: 10 mg Insulin Glargine (Lantus Solostar) 0 - 15 units SUBCUT BEDTIME [facility] Insulin Glargine (Lantus Solostar) 0 - 15 units SUBCUT QAM [facility] Insulin Glargine (Lantus Solostar) 0 - 15 units SUBCUT DAILY [facility] Insulin Glargine (Lantus Solostar) 20 units SUBCUT BEDTIME [facility] Last Admin: 04/22/19 20:05 Dose: 20 units Insulin Glargine (Lantus Solostar) 15 units SUBCUT DAILY [facility] Loperamide HCl (Imodium) 4 mg PO DAILY [facility] Loperamide HCl (Imodium) 4 mg PO DAILY PRN PRN Reason: Diarrhea Perflutren Lipid Microsphere (Definity) 2.2 mg IVPUSH PREPRO ONE Stop: 04/23/19 15:00 Last Admin: 04/23/19 15:16 Dose: 2.2 mg Trazodone HCl (Trazodone) 100 mg PO BEDTIME [facility] Last Admin: 04/23/19 21:13 Dose: 100 mg Trazodone HCl (Trazodone) 100 mg PO ONETIME ONE Stop: 04/22/19 04:31 Last Admin: 04/22/19 04:23 Dose: 100 mg Warfarin Sodium (Coumadin) 2.5 mg PO TUFR [facility] Last Admin: 04/22/19 01:25 Dose: 2.5 mg Warfarin Sodium (Coumadin) 5 mg PO SUMOWETHSA [facility] Warfarin Sodium (Coumadin) 2.5 mg PO TuFr@1600 [facility] Warfarin Sodium (Coumadin) 5 mg PO SuMoWeThSa@1600 [facility] Warfarin Sodium 5 mg/ Warfarin (Sodium 2.5 mg) 7.5 mg PO ONETIME ONE Stop: 04/22/19 16:01 Last Admin: 04/22/19 16:52 Dose: 7.5 mg Warfarin Sodium 5 mg/ Warfarin (Sodium 2.5 mg) 7.5 mg PO ONETIME ONE Stop: 04/23/19 16:01 Last Admin: 04/23/19 16:08 Dose: 7.5 mg Warfarin Sodium 5 mg/ Warfarin (Sodium 2.5 mg) 7.5 mg PO ONETIME ONE Stop: 04/24/19 16:01 Last Admin: 04/24/19 16:06 Dose: 7.5 mg *Q Meaningful Use (DIS) - VTE *Q VTE Mechanical Contraindications *Q: At Risk for Falls - Stroke *Q Anticoagulation Contraindications Stroke *Q: Med/TX Not Indicated/Need Antithrombotic Contraindications Stroke *Q: Comp/Late Effect of Care
[2019-04-25] MEDS ORDERED: Warfarin 5 MG, Warfarin 2.5 MG PO SCH ×2 (16:00)
[2019-04-25] MEDS ORDERED: Warfarin 5 MG Tab PO ONE (16:00)
== END 2019-04-25 14:25 | disposition swing bed (61) | DRG 65 ==
LOC: FB.ED 21:57 → FB.MS 04-22 00:18
PROVIDERS: ADMIT Family Medicine; ATTEND Family Medicine
DX: R06.02 Shortness of breath (principal); I63.9 Cerebral infarction, unspecified; R60.9 Edema, unspecified; R26.9 Unspecified abnormalities of gait and mobility; I16.0 Hypertensive urgency; I13.0 Hypertensive heart and chronic kidney disease with heart failure and stage 1 through stage 4 chronic kidney disease, or unspecified chronic kidney disease; N39.0 Urinary tract infection, site not specified; I48.20 Chronic atrial fibrillation, unspecified; G81.94 Hemiplegia, unspecified affecting left nondominant side; E78.00 Pure hypercholesterolemia, unspecified; I50.9 Heart failure, unspecified; E11.22 Type 2 diabetes mellitus with diabetic chronic kidney disease; R26.89 Other abnormalities of gait and mobility; E11.42 Type 2 diabetes mellitus with diabetic polyneuropathy; J44.9 Chronic obstructive pulmonary disease, unspecified; K21.9 Gastro-esophageal reflux disease without esophagitis; I48.91 Unspecified atrial fibrillation; Z96.619 Presence of unspecified artificial shoulder joint; N18.3 Chronic kidney disease, stage 3 (moderate); M19.90 Unspecified osteoarthritis, unspecified site; E11.40 Type 2 diabetes mellitus with diabetic neuropathy, unspecified; F32.9 Major depressive disorder, single episode, unspecified; F03.90 Unspecified dementia, unspecified severity, without behavioral disturbance, psychotic disturbance, mood disturbance, and anxiety; Z96.611 Presence of right artificial shoulder joint; Z96.612 Presence of left artificial shoulder joint; W19.XXXA Unspecified fall, initial encounter; Z96.653 Presence of artificial knee joint, bilateral; Z85.038 Personal history of other malignant neoplasm of large intestine; Z79.01 Long term (current) use of anticoagulants; Z79.4 Long term (current) use of insulin; Z79.899 Other long term (current) drug therapy; Z85.828 Personal history of other malignant neoplasm of skin; Z90.89 Acquired absence of other organs; Z90.49 Acquired absence of other specified parts of digestive tract; Z98.890 Other specified postprocedural states; Z98.52 Vasectomy status; Z98.49 Cataract extraction status, unspecified eye; Y92.009 Unspecified place in unspecified non-institutional (private) residence as the place of occurrence of the external cause; Z99.89 Dependence on other enabling machines and devices
CPT/HCPCS: 36415; 51702; 70450; 71045; 80053; 82550; 82962; 83880; 84484; 85025; 85610; 85730; 93005; 93010; 96374; 96375; 99285 ×2; J0360; J1940; 70553; 80048; 80061; 81001; 85027; 87086; 93880; 94760; 97110-GO; 97162-GP; 97166-GO; 97530-GO; 97530-GP; 97535-GO; A9270-GY; A9579; C8929; J0696; J1650; J1815; J1815-GY; Q9957

== ENCOUNTER 2019-04-25 14:27 | Inpatient (IN) | payer MEDICARE, BC ==
[2019-04-25] MEDS ORDERED: Warfarin Sliding Scale PO SCH (14:45)
[2019-04-25] MEDS: Enoxaparin 100 MG/1 ML Syringe SUBCUT SCH (14:57)
[2019-04-25] MEDS: Enoxaparin 40 MG/0.4 ML Syringe SUBCUT SCH (14:57)
--- NOTE | 2019-04-25 14:59 | PCM.HP.2 ---
H&P History of Present Illness - General Date of Service: 04/25/19 Admit Problem/Dx: Admission Diagnosis/Problem Admission Diagnosis/Problem CVA, Cerebrovascular accident Source of Information: Patient, Old Records History Limitations: Reports: No Limitations - History of Present Illness Initial Comments - Free Text/Narative: This is an 78-year-old male patient that had a right CVA with left arm weakness. Initial CT was negative. Confirmed on MRI. He was admitted he has history of A. fib and his INR level was 1.44 when he came in. So they worked on the INR and Coumadin because had not been bridged him with Lovenox. He did well on PT/OT and getting some recovery to his left arm. This left leg was normal and had no problems speaking, swallowing. He has history of diabetes and that was well-controlled. Blood pressure is nicely high and got better. The doctor stop hydrochlorothiazide admitted him and put him on Lasix and will be continued. - Related Data Allergies/Adverse Reactions: Allergies Allergy/AdvReac Type Severity Reaction Status Date / Time No Known Allergies Allergy Verified 04/21/19 22:38 Home Medications: Home Meds Glucosam/Chondr/Collagn/Hyalur [Glucosamine & Chondroitin Cap] 1 cap PO DAILY [History] Vitamin B Complex 1 cap PO DAILY 05/30/14 [History] Cholecalciferol (Vitamin D3) [Vitamin D3] 1,000 unit PO DAILY 01/09/16 [History] Zinc 50 mg PO DAILY 01/09/16 [History] cloNIDine [Catapres] 0.2 mg PO DAILY 09/28/17 [History] traZODone 100 mg PO BEDTIME 09/28/17 [History] Donepezil [Aricept] 5 mg PO BEDTIME 01/28/19 [History] Insulin Glargine,Hum.Rec.Anlog [Basaglar Kwikpen U-100] 10 - 20 unit SQ BEDTIME 01/28/19 [History] Lutein/Min/Vit C/Vit E Acetate [Ocuvite Lutein] 1 cap PO DAILY 01/28/19 [History ] Calcium Carbonate/Vitamin D3 [Os-Porter 500+D] 1 each PO DAILY 04/21/19 [History] sulfaSALAzine [Azulfidine] 500 mg PO BIDMEALS 04/21/19 [History] Acetaminophen [Tylenol Extra Strength] 1,000 mg PO ONETIME 04/22/19 [History] Furosemide [Lasix] 40 mg PO DAILY tablet 04/25/19 [Rx] Insulin Lispro [Humalog] 0 unit SUBCUT TIDMEALS pen 04/25/19 [Rx] Loperamide [Imodium] 4 mg PO DAILY cap 04/25/19 [Rx] Losartan [Cozaar] 100 mg PO DAILY tablet 04/25/19 [Rx] Nystatin [Nystop] 0 gm TOP BID bottle 04/25/19 [Rx] Potassium Chloride [Klor-Con M20] 20 meq PO BID tab.er 04/25/19 [Rx] QUEtiapine [SEROquel] 12.5 mg PO BEDTIME tablet 04/25/19 [Rx] Rosuvastatin [Crestor] 5 mg PO BEDTIME tablet 04/25/19 [Rx] Saccharomyces Boulardii [Florastor] 250 mg PO DAILY cap 04/25/19 [Rx] Tamsulosin [Flomax] 0.4 mg PO BEDTIME cap.er 04/25/19 [Rx] Warfarin Sliding Scale [Coumadin Sliding Scale] 1 each PO ASDIRECTED tablet [Rx] Past Medical History HEENT History: Reports: Cataract Cardiovascular History: Reports: Afib, High Cholesterol, Hypertension Respiratory History: Reports: Asthma, COPD Other Respiratory History: mild COPD - has albuterol inhaler Gastrointestinal History: Reports: GERD Other Gastrointestinal History: bacterial colon infection Genitourinary History: Reports: Chronic Renal Insuffiency, Other (See Below) Other Genitourinary History: STAGE 3 RENAL FAILURE Musculoskeletal History: Reports: Arthritis, Osteoarthritis Other Musculoskeletal History: 3 rib fx L lat Neurological History: Reports: Neuropathy, Peripheral, Parkinson's (progressive supranuclear palsy type), Other (See Below) (memory loss) Psychiatric History: Reports: Dementia, Depression Endocrine/Metabolic History: Reports: Diabetes, Type II, Obesity/BMI 30+ Hematologic History: Reports: Anticoagulation Therapy Immunologic History: Reports: None Oncologic (Cancer) History: Reports: Basal Cell Carcinoma Other Oncologic History: had CA in colon polyp Dermatologic History: Reports: Eczema, Other (See Below) Other Dermatologic History: fatty tumor removed from back. Has 'hematoma to R inner thigh from fall earlier this summer, was drained approx 2 1/[address] Mo[address]. ROSACEA - Infectious Disease History Infectious Disease History: Reports: Chicken Pox, Measles, Mumps - Past Surgical History Head Surgeries/Procedures: Reports: None HEENT Surgical History: Reports: Cataract Surgery, Tonsillectomy Other HEENT Surgeries/Procedures: bilat cataract Cardiovascular Surgical History: Reports: None GI Surgical History: Reports: Cholecystectomy, Hernia, Inguinal, Hernia Repair/ Other Other Female Surgeries/Procedures: L HYDROCELECTOMY Male Surgical History: Reports: Vasectomy, Other (See Below) Endocrine Surgical History: Reports: None Neurological Surgical History: Reports: None Musculoskeletal Surgical History: Reports: Knee Replacement, ORIF, Shoulder Replacement, Other (See Below) Other Musculoskeletal Surgeries/Procedures:: bilat knee replacement, L shoulder replacement, L femur ORIF Oncologic Surgical History: Reports: None Dermatological Surgical History: Reports: None Social & Family History - Family History Family Medical History: Noncontributory - Caffeine Use Caffeine Use: Reports: Coffee H&P Review of Systems - Review of Systems: Review Of Systems: See Below General: Reports: No Symptoms HEENT: Reports: No Symptoms Pulmonary: Reports: No Symptoms Cardiovascular: Reports: No Symptoms Gastrointestinal: Reports: No Symptoms Genitourinary: Reports: No Symptoms Musculoskeletal: Reports: Other (Left arm weakness) Skin: Reports: No Symptoms Psychiatric: Reports: No Symptoms Neurological: Reports: No Symptoms Hematologic/Lymphatic: Reports: No Symptoms Immunologic: Reports: No Symptoms Exam - Exam Exam: See Below - Exam General: Alert, Oriented, Cooperative HEENT: PERRLA, Hearing Intact, Mucosa Moist & [place], Posterior Pharynx Clear, TMs Clear Neck: Supple, Trachea Midline Lungs: Clear to Auscultation, Normal Respiratory Effort Cardiovascular: Regular Rate, Irregular Rhythm. No: Systolic Murmur GI/Abdominal Exam: Normal Bowel Sounds, Soft, Non-Tender, No Organomegaly, No Distention, No Abnormal Bruit, No Mass, Pelvis Stable Extremities: Normal Inspection, Non-Tender, No Pedal Edema, Other (Mild left arm weakness. He can lift it up and grab.) Skin: Warm, Dry, Intact Neurological: Normal Speech, Normal Tone Neuro Extensive - Mental Status: Alert, Oriented x3, Normal Mood/Affect, Normal Cognition, Memory Intact Psychiatric: Alert, Normal Affect, Normal Mood - Problem List (1) Acute right-sided weakness SNOMED Code(s): 344830311 ICD Code: R53.1 - WEAKNESS Status: Acute Current Visit: No (2) Left acute arterial ischemic stroke, MUFF WINDER (posterior cerebral artery) SNOMED Code(s): 130886724, 163160896 ICD Code: I63.532 - CEREB INFRC D/T UNSP OCCLS OR STENOS OF LEFT POST CEREB ART Status: Acute Current Visit: No Problem List Initiated/Reviewed/Updated: Yes Orders Last 24hrs: Active Orders 24 hr Category Date Time Status Patient Status [ADT] Routine ADT 04/25/19 14:47 Ordered Dietary Supplements [RC] BIDMEALS Care 04/25/19 14:47 Ordered Height and Weight [RC] WEEKLY Care 04/25/19 14:47 Ordered Oxygen Therapy [RC] PRN Care 04/25/19 14:47 Ordered Up With Assistance [RC] ASDIRECTED Care 04/25/19 14:47 Ordered VTE/DVT Education [RC] Per Unit Routine Care 04/25/19 14:47 Ordered Vital Signs [RC] PER UNIT ROUTINE Care 04/25/19 14:47 Ordered OT Evaluation and Treatment [CONS] Routine Cons 04/25/19 14:47 Ordered PT Evaluation and Treatment [CONS] Routine Cons 04/25/19 14:47 Ordered Consistent Carbohydrate Diet [DIET] Diet 04/25/19 Dinner Ordered INR,PT,PROTHROMBIN TIME [COAG] DAILY Lab 04/26/19 14:45 Ordered INR,PT,PROTHROMBIN TIME [COAG] DAILY Lab 04/27/19 14:45 Ordered INR,PT,PROTHROMBIN TIME [COAG] DAILY Lab 04/28/19 14:45 Ordered INR,PT,PROTHROMBIN TIME [COAG] DAILY Lab 04/29/19 14:45 Ordered INR,PT,PROTHROMBIN TIME [COAG] DAILY Lab 04/30/19 14:45 Ordered Acetaminophen [Tylenol Extra Strength] Med 04/25/19 15:00 Ordered 1,000 mg PO ONETIME Calcium Carbonate/Vitamin D3 [Os-Porter 500+D] Med 04/26/19 09:00 Ordered 1 each PO DAILY Cholecalciferol (Vitamin D3) [Vitamin D3] Med 04/26/19 09:00 Ordered 1,000 unit PO DAILY Donepezil [Aricept] Med 04/25/19 21:00 Ordered 5 mg PO BEDTIME Enoxaparin [Lovenox] Med 04/25/19 14:45 Active 100 mg SUBCUT Q12H Enoxaparin [Lovenox] Med 04/25/19 14:45 Active 40 mg SUBCUT Q12H Furosemide [Lasix] Med 04/26/19 09:00 Ordered 40 mg PO DAILY Glucosam/Chondr/Collagn/Hyalur [Glucosamine & Med 04/26/19 09:00 Ordered Chondroitin Cap] 1 cap PO DAILY Insulin Glarg,Human.Rec.Analog [LantUS Solostar] Med 04/25/19 21:00 Ordered 18 units SUBCUT BEDTIME Loperamide [Imodium] Med 04/26/19 09:00 Ordered 4 mg PO DAILY Losartan [Cozaar] Med 04/26/19 09:00 Ordered 100 mg PO DAILY Lutein/Min/Vit C/Vit E Acetate [Ocuvite Lutein] Med 04/26/19 09:00 Ordered 1 cap PO DAILY Nystatin [Nystop] Med 04/25/19 21:00 Ordered 1 gm TOP BID Potassium Chloride [Klor-Con M20] Med 04/25/19 21:00 Ordered 20 meq PO BID QUEtiapine [SEROqueL] Med 04/25/19 21:00 Ordered 12.5 mg PO BEDTIME Rosuvastatin [Crestor] Med 04/25/19 21:00 Ordered 5 mg PO BEDTIME Saccharomyces Boulardii [Florastor] Med 04/26/19 09:00 Ordered 250 mg PO DAILY Tamsulosin [Flomax] Med 04/25/19 21:00 Ordered 0.4 mg PO BEDTIME Warfarin Sliding Scale [Coumadin Sliding Scale] Med 04/25/19 14:45 Pending 1 each PO ASDIRECTED Warfarin [Coumadin] Med 04/25/19 16:00 Once 10 mg PO ONETIME ONE cloNIDine [Catapres] Med 04/26/19 09:00 Ordered 0.2 mg PO DAILY sulfaSALAzine Med 04/25/19 18:00 Ordered 500 mg PO BIDMEALS Resuscitation Status Routine Resus Stat 04/25/19 14:47 Ordered Medication Orders Acetaminophen (Tylenol Extra Strength) 1,000 mg PO ONETIME [facility] Clonidine HCl (Catapres) 0.2 mg PO DAILY [facility] Donepezil HCl (Aricept) 5 mg PO BEDTIME [facility] Enoxaparin Sodium (Lovenox) 100 mg SUBCUT Q12H [facility] Stop: 04/26/19 02:46 Enoxaparin Sodium (Lovenox) 40 mg SUBCUT Q12H [facility] Stop: 04/26/19 02:46 Furosemide (Lasix) 40 mg PO DAILY [facility] Non-Formulary Medication (Calcium Carbonate/Vitamin D3 [Os-Porter 500+D]) 1 each PO DAILY [facility] Non-Formulary Medication (Cholecalciferol (Vitamin D3) [Vitamin D3]) 1,000 unit PO DAILY [facility] Warfarin Sodium (Coumadin) 10 mg PO ONETIME ONE Stop: 04/25/19 16:01 Warfarin Sodium (Coumadin Sliding Scale) 1 each PO ASDIRECTED [facility] Assessment/Plan Comment:: 1. Admit to swing bed for PT/OT. 2. Monitor his blood sugars twice a day and a diabetic diet. 3. Up with assist. 4. No labs or x-rays needed. - Mortality Measure Prognosis:: Good
[2019-04-25] MEDS ORDERED: Warfarin 5 MG Tab PO ONE (16:00)
[2019-04-25] MEDS: Acetaminophen 500 MG Tab PO PRN (18:01)
[2019-04-25] MEDS: sulfaSALAzine 500 MG Tab PO SCH (18:02)
[2019-04-25] MEDS: QUEtiapine 25 MG Tab PO SCH (20:25)
[2019-04-25] MEDS: Donepezil 5 MG Tab PO SCH (20:25)
[2019-04-25] MEDS: Potassium Chloride 20 MEQ Tab.ER PO SCH (20:26)
[2019-04-25] MEDS: traZODone 50 MG Tab PO SCH (20:26)
[2019-04-25] MEDS: Nystatin Topical Powder 15 GM Bottle TOP SCH (20:26)
[2019-04-25] MEDS: Insulin Glargine,Human Rec. Analog 100 Units/ML 3 ML Pen SUBCUT SCH (20:27)
[2019-04-25] MEDS: Rosuvastatin 10 MG Tab PO SCH (20:27)
[2019-04-25] MEDS: Tamsulosin 0.4 MG Cap.ER PO SCH (20:27)
[2019-04-26] MEDS: Enoxaparin 40 MG/0.4 ML Syringe SUBCUT SCH (03:14)
[2019-04-26] MEDS: Enoxaparin 100 MG/1 ML Syringe SUBCUT SCH (03:14)
[2019-04-26] MEDS: cloNIDine 0.1 MG Tab PO SCH (08:33)
[2019-04-26] MEDS: Losartan 100 MG Tab PO SCH (08:33)
[2019-04-26] MEDS: sulfaSALAzine 500 MG Tab PO SCH ×2 (08:33→17:05)
[2019-04-26] MEDS: Potassium Chloride 20 MEQ Tab.ER PO SCH ×2 (08:34→20:38)
[2019-04-26] MEDS: Cholecalciferol (Vitamin D3) 25 MCG Tab PO SCH (08:34)
[2019-04-26] MEDS: Loperamide 2 MG Cap PO SCH (08:34)
[2019-04-26] MEDS: Furosemide 40 MG Tab PO SCH (08:34)
[2019-04-26] MEDS: Calcium Carbonate 500 MG Tablet PO SCH (08:34)
[2019-04-26] MEDS: Chondroitin/Glucosamine Cap PO SCH (08:34)
[2019-04-26] MEDS: Saccharomyces Boulardii (Probiotic) 250 MG Cap PO SCH (08:34)
[2019-04-26] MEDS: Lutein/Minerals/Vitamin C/Vitamin E Acetate Cap PO SCH (08:34)
[2019-04-26] MEDS: Nystatin Topical Powder 15 GM Bottle TOP SCH ×2 (08:40→20:38)
[2019-04-26] MEDS ORDERED: Warfarin 5 MG Tab PO ONE (16:00)
[2019-04-26] MEDS: Rosuvastatin 10 MG Tab PO SCH (20:38)
[2019-04-26] MEDS: traZODone 50 MG Tab PO SCH (20:38)
[2019-04-26] MEDS: Tamsulosin 0.4 MG Cap.ER PO SCH (20:38)
[2019-04-26] MEDS: Donepezil 5 MG Tab PO SCH (20:38)
[2019-04-26] MEDS: QUEtiapine 25 MG Tab PO SCH (20:38)
[2019-04-26] MEDS: Insulin Glargine,Human Rec. Analog 100 Units/ML 3 ML Pen SUBCUT SCH (20:40)
[2019-04-27] MEDS: Acetaminophen 500 MG Tab PO PRN (03:14)
[2019-04-27] MEDS: sulfaSALAzine 500 MG Tab PO SCH ×2 (08:54→18:20)
[2019-04-27] MEDS: Furosemide 40 MG Tab PO SCH (08:54)
[2019-04-27] MEDS: Losartan 100 MG Tab PO SCH (08:54)
[2019-04-27] MEDS: Chondroitin/Glucosamine Cap PO SCH (08:54)
[2019-04-27] MEDS: cloNIDine 0.1 MG Tab PO SCH (08:55)
[2019-04-27] MEDS: Calcium Carbonate 500 MG Tablet PO SCH (08:55)
[2019-04-27] MEDS: Potassium Chloride 20 MEQ Tab.ER PO SCH ×2 (08:55→20:43)
[2019-04-27] MEDS: Lutein/Minerals/Vitamin C/Vitamin E Acetate Cap PO SCH (08:55)
[2019-04-27] MEDS: Saccharomyces Boulardii (Probiotic) 250 MG Cap PO SCH (08:55)
[2019-04-27] MEDS: Cholecalciferol (Vitamin D3) 25 MCG Tab PO SCH (08:55)
[2019-04-27] MEDS: Loperamide 2 MG Cap PO SCH (08:55)
[2019-04-27] MEDS: Nystatin Topical Powder 15 GM Bottle TOP SCH ×2 (08:58→20:44)
[2019-04-27] MEDS ORDERED: Warfarin 2.5 MG Tab PO ONE (16:00)
[2019-04-27] MEDS: traZODone 50 MG Tab PO SCH (20:42)
[2019-04-27] MEDS: QUEtiapine 25 MG Tab PO SCH (20:42)
[2019-04-27] MEDS: Rosuvastatin 10 MG Tab PO SCH (20:45)
[2019-04-27] MEDS: Tamsulosin 0.4 MG Cap.ER PO SCH (20:45)
[2019-04-27] MEDS: Donepezil 5 MG Tab PO SCH (20:46)
[2019-04-27] MEDS: Insulin Glargine,Human Rec. Analog 100 Units/ML 3 ML Pen SUBCUT SCH (20:47)
[2019-04-28] MEDS: Acetaminophen 500 MG Tab PO PRN (01:43)
[2019-04-28] MEDS: Calcium Carbonate 500 MG Tablet PO SCH (08:46)
[2019-04-28] MEDS: Losartan 100 MG Tab PO SCH (08:46)
[2019-04-28] MEDS: Cholecalciferol (Vitamin D3) 25 MCG Tab PO SCH (08:46)
[2019-04-28] MEDS: sulfaSALAzine 500 MG Tab PO SCH ×2 (08:46→17:50)
[2019-04-28] MEDS: Chondroitin/Glucosamine Cap PO SCH (08:46)
[2019-04-28] MEDS: Lutein/Minerals/Vitamin C/Vitamin E Acetate Cap PO SCH (08:48)
[2019-04-28] MEDS: Potassium Chloride 20 MEQ Tab.ER PO SCH ×2 (08:48→20:59)
[2019-04-28] MEDS: cloNIDine 0.1 MG Tab PO SCH (08:48)
[2019-04-28] MEDS: Saccharomyces Boulardii (Probiotic) 250 MG Cap PO SCH (08:49)
[2019-04-28] MEDS: Nystatin Topical Powder 15 GM Bottle TOP SCH ×2 (08:49→20:59)
[2019-04-28] MEDS: Loperamide 2 MG Cap PO SCH (08:49)
[2019-04-28] MEDS: Furosemide 40 MG Tab PO SCH (08:49)
[2019-04-28] MEDS ORDERED: Warfarin 5 MG Tab PO ONE (16:00)
[2019-04-28] MEDS: Donepezil 5 MG Tab PO SCH (20:58)
[2019-04-28] MEDS: Rosuvastatin 10 MG Tab PO SCH (20:58)
[2019-04-28] MEDS: Tamsulosin 0.4 MG Cap.ER PO SCH (20:59)
[2019-04-28] MEDS: QUEtiapine 25 MG Tab PO SCH (21:00)
[2019-04-28] MEDS: traZODone 50 MG Tab PO SCH (21:00)
[2019-04-28] MEDS: Insulin Glargine,Human Rec. Analog 100 Units/ML 3 ML Pen SUBCUT SCH (21:05)
[2019-04-29] MEDS: Cholecalciferol (Vitamin D3) 25 MCG Tab PO SCH (08:25)
[2019-04-29] MEDS: sulfaSALAzine 500 MG Tab PO SCH ×2 (08:25→18:40)
[2019-04-29] MEDS: Potassium Chloride 20 MEQ Tab.ER PO SCH ×2 (08:25→20:34)
[2019-04-29] MEDS: Losartan 100 MG Tab PO SCH (08:25)
[2019-04-29] MEDS: Calcium Carbonate 500 MG Tablet PO SCH (08:26)
[2019-04-29] MEDS: Saccharomyces Boulardii (Probiotic) 250 MG Cap PO SCH (08:26)
[2019-04-29] MEDS: Loperamide 2 MG Cap PO SCH (08:26)
[2019-04-29] MEDS: Furosemide 40 MG Tab PO SCH (08:26)
[2019-04-29] MEDS: Chondroitin/Glucosamine Cap PO SCH (08:26)
[2019-04-29] MEDS: Lutein/Minerals/Vitamin C/Vitamin E Acetate Cap PO SCH (08:26)
[2019-04-29] MEDS: cloNIDine 0.1 MG Tab PO SCH (08:27)
[2019-04-29] MEDS: Nystatin Topical Powder 15 GM Bottle TOP SCH ×2 (08:27→20:34)
[2019-04-29] MEDS: Warfarin 5 MG, Warfarin 2.5 MG PO SCH ×2 (17:18)
[2019-04-29] MEDS: Donepezil 5 MG Tab PO SCH (20:33)
[2019-04-29] MEDS: Rosuvastatin 10 MG Tab PO SCH (20:33)
[2019-04-29] MEDS: Tamsulosin 0.4 MG Cap.ER PO SCH (20:33)
[2019-04-29] MEDS: QUEtiapine 25 MG Tab PO SCH (20:35)
[2019-04-29] MEDS: traZODone 50 MG Tab PO SCH (20:35)
[2019-04-29] MEDS: Insulin Glargine,Human Rec. Analog 100 Units/ML 3 ML Pen SUBCUT SCH (20:36)
[2019-04-30] MEDS: cloNIDine 0.1 MG Tab PO SCH (08:15)
[2019-04-30] MEDS: sulfaSALAzine 500 MG Tab PO SCH ×2 (08:15→18:09)
[2019-04-30] MEDS: Potassium Chloride 20 MEQ Tab.ER PO SCH ×2 (08:16→20:45)
[2019-04-30] MEDS: Loperamide 2 MG Cap PO SCH (08:16)
[2019-04-30] MEDS: Chondroitin/Glucosamine Cap PO SCH (08:16)
[2019-04-30] MEDS: Losartan 100 MG Tab PO SCH (08:16)
[2019-04-30] MEDS: Saccharomyces Boulardii (Probiotic) 250 MG Cap PO SCH (08:16)
[2019-04-30] MEDS: Furosemide 40 MG Tab PO SCH (08:16)
[2019-04-30] MEDS: Calcium Carbonate 500 MG Tablet PO SCH (08:17)
[2019-04-30] MEDS: Nystatin Topical Powder 15 GM Bottle TOP SCH ×2 (08:17→20:45)
[2019-04-30] MEDS: Cholecalciferol (Vitamin D3) 25 MCG Tab PO SCH (08:17)
[2019-04-30] MEDS: Lutein/Minerals/Vitamin C/Vitamin E Acetate Cap PO SCH (08:17)
[2019-04-30] MEDS: Warfarin 5 MG, Warfarin 2.5 MG PO SCH ×2 (16:43)
--- NOTE | 2019-04-30 17:53 | PCM.PN ---
- General Info Date of Service: 04/30/19 Admission Dx/Problem (Free Text): The patient has no complaints. He denies chest pain, shortness of breath, leg swelling. Says right arm is working much better and he thinks he is doing great. His report that occasionally his sugar goes up into the 300s - Patient Data Vitals - Most Recent: Last Vital Signs Temp 98.9 F 04/30/19 08:00 Pulse 64 04/30/19 08:00 Resp 18 04/30/19 08:00 BP 167/77 H 04/30/19 08:16 Pulse Ox 98 04/30/19 08:00 Weight - Most Recent: 310 lb Lab Results Last 24 Hours: Laboratory Results - last 24 hr 04/29/19 04/30/19 04/30/19 Range/Units 18:19 06:09 16:55 POC Glucose 270 H D 123 H D 314 H D (80-116) mg/dL Med Orders - Current: Current Medications Acetaminophen (Tylenol Extra Strength) 1,000 mg PO BID PRN PRN Reason: pain Last Admin: 04/28/19 01:43 Dose: 1,000 mg Calcium Carbonate/Glycine (Oyster Shell Calcium) 500 mg PO DAILY [facility] Last Admin: 04/30/19 08:17 Dose: 500 mg Cholecalciferol (Vitamin D3) 25 mcg PO DAILY [facility] Last Admin: 04/30/19 08:17 Dose: 25 mcg Clonidine HCl (Catapres) 0.2 mg PO DAILY [facility] Last Admin: 04/30/19 08:15 Dose: 0.2 mg Donepezil HCl (Aricept) 5 mg PO BEDTIME [facility] Last Admin: 04/29/19 20:33 Dose: 5 mg Furosemide (Lasix) 40 mg PO DAILY [facility] Last Admin: 04/30/19 08:16 Dose: 40 mg Glucosamine/Chondroitin (Glucosamine-Chondroitin 500-400 Capsule) 1 cap PO DAILY [facility] Last Admin: 04/30/19 08:16 Dose: 1 cap Loperamide HCl (Imodium) 4 mg PO DAILY [facility] Last Admin: 04/30/19 08:16 Dose: 4 mg Losartan Potassium (Cozaar) 100 mg PO DAILY [facility] Last Admin: 04/30/19 08:16 Dose: 100 mg Nystatin (Nystop) 0 gm TOP BID [facility] Last Admin: 04/30/19 08:17 Dose: 1 applic Potassium Chloride (Klor-Con M20) 20 meq PO BID [facility] Last Admin: 04/30/19 08:16 Dose: 20 meq Quetiapine Fumarate (Seroquel) 25 mg PO BEDTIME [facility] Last Admin: 04/29/19 20:35 Dose: 25 mg Rosuvastatin Calcium (Crestor) 5 mg PO BEDTIME [facility] Last Admin: 04/29/19 20:33 Dose: 5 mg Saccharomyces Boulardii (Florastor) 250 mg PO DAILY [facility] Last Admin: 04/30/19 08:16 Dose: 250 mg Sulfasalazine (Sulfasalazine) 500 mg PO BIDMEALS [facility] Last Admin: 04/30/19 08:15 Dose: 500 mg Tamsulosin HCl (Flomax) 0.4 mg PO BEDTIME [facility] Last Admin: 04/29/19 20:33 Dose: 0.4 mg Trazodone HCl (Trazodone) 50 mg PO BEDTIME [facility] Stop: 05/06/19 21:01 Trazodone HCl (Trazodone) 25 mg PO BEDTIME [facility] Stop: 05/13/19 21:01 Vit C/Vit E/Zinc/Copper/Lutein (Ocuvite Lutein) 1 each PO DAILY [facility] Last Admin: 04/30/19 08:17 Dose: 1 each Warfarin Sodium (Coumadin Sliding Scale) 1 each PO ASDIRECTED [facility] Warfarin Sodium 5 mg/ Warfarin (Sodium 2.5 mg) 7.5 mg PO [id number]@1600 [facility] Last Admin: 04/30/19 16:43 Dose: 7.5 mg Warfarin Sodium (Coumadin) 10 mg PO Th@1600 [facility] Discontinued Medications Enoxaparin Sodium (Lovenox) 100 mg SUBCUT Q12H [facility] Stop: 04/26/19 02:46 Last Admin: 04/26/19 03:14 Dose: 100 mg Enoxaparin Sodium (Lovenox) 40 mg SUBCUT Q12H [facility] Stop: 04/26/19 02:46 Last Admin: 04/26/19 03:14 Dose: 40 mg Insulin Glargine (Lantus Solostar) 18 units SUBCUT BEDTIME [facility] Last Admin: 04/29/19 20:36 Dose: 18 units Quetiapine Fumarate (Seroquel) 12.5 mg PO BEDTIME [facility] Last Admin: 01/19/20 20:42 Dose: 12.5 mg Trazodone HCl (Trazodone) 75 mg PO BEDTIME [facility] Last Admin: 04/29/19 20:35 Dose: 75 mg Warfarin Sodium (Coumadin) 10 mg PO ONETIME ONE Stop: 04/25/19 16:01 Last Admin: 04/25/19 16:43 Dose: 10 mg Warfarin Sodium (Coumadin) 10 mg PO ONETIME ONE Stop: 04/26/19 16:01 Last Admin: 04/26/19 17:04 Dose: 10 mg Warfarin Sodium (Coumadin) 7.5 mg PO ONETIME ONE Stop: 04/27/19 16:01 Last Admin: 04/27/19 15:46 Dose: 7.5 mg Warfarin Sodium (Coumadin) 5 mg PO ONETIME ONE Stop: 04/28/19 16:01 Last Admin: 04/28/19 15:37 Dose: 5 mg - Exam Neck: Supple Lungs: Clear to Auscultation, Normal Respiratory Effort Cardiovascular: Regular Rate, Regular Rhythm, No Murmurs Extremities: Other (Right arm has good range of motion and increasing strength) Sepsis Event Note - Evaluation Sepsis Screening Result: No Definite Risk - Focused Exam Vital Signs: Vital Signs Temp Pulse Resp BP BP Pulse Ox 04/30/19 08:16 167/77 H 04/30/19 08:15 167/77 H 04/30/19 08:00 98.9 F 64 18 167/77 H 98 Date Exam was Performed: 04/30/19 Time Exam was Performed: 17:51 - Problem List & Annotations (1) Acute right-sided weakness SNOMED Code(s): 092157057 Code(s): R53.1 - WEAKNESS Status: Acute Current Visit: No (2) Left acute arterial ischemic stroke, ELECTRICAL DESIGN TECHNOLOGIST (posterior cerebral artery) SNOMED Code(s): 334935557, 984000378 Code(s): I63.532 - CEREB INFRC D/T UNSP OCCLS OR STENOS OF LEFT POST CEREB ART Status: Acute Current Visit: No (3) Hypertension SNOMED Code(s): 88271952 Code(s): I10 - ESSENTIAL (PRIMARY) HYPERTENSION Status: Acute Current Visit: Yes (4) Type 2 diabetes mellitus SNOMED Code(s): 80747219 Code(s): E11.9 - TYPE 2 DIABETES MELLITUS WITHOUT COMPLICATIONS Status: Acute Current Visit: No - Problem List Review Problem List Initiated/Reviewed/Updated: Yes - My Orders Last 24 Hours: My Active Orders 04/30/19 21:00 Insulin Glarg,Human.Rec.Analog [LantUS Solostar] 25 units SUBCUT BEDTIME traZODone 50 mg PO BEDTIME 05/01/19 09:00 amLODIPine [Norvasc] 5 mg PO DAILY 05/01/19 16:00 Warfarin [Coumadin] 10 mg PO Th@1600 05/02/19 08:14 INR,PT,PROTHROMBIN TIME [COAG] Q3D 05/05/19 08:14 INR,PT,PROTHROMBIN TIME [COAG] Q3D 05/07/19 21:00 traZODone 25 mg PO BEDTIME 05/08/19 08:14 INR,PT,PROTHROMBIN TIME [COAG] Q3D 05/11/19 08:14 INR,PT,PROTHROMBIN TIME [COAG] Q3D 05/14/19 08:14 INR,PT,PROTHROMBIN TIME [COAG] Q3D 05/17/19 08:14 INR,PT,PROTHROMBIN TIME [COAG] Q3D 05/20/19 08:14 INR,PT,PROTHROMBIN TIME [COAG] Q3D - Plan Plan:: 1. Increase basaglar insulin from 18 units to 25 units. 2. Start Norvasc 5 mg a day by mouth
[2019-04-30] MEDS: Donepezil 5 MG Tab PO SCH (20:44)
[2019-04-30] MEDS: Rosuvastatin 10 MG Tab PO SCH (20:44)
[2019-04-30] MEDS: Tamsulosin 0.4 MG Cap.ER PO SCH (20:45)
[2019-04-30] MEDS: QUEtiapine 25 MG Tab PO SCH (20:46)
[2019-04-30] MEDS: traZODone 50 MG Tab PO SCH (20:46)
[2019-04-30] MEDS: Insulin Glargine,Human Rec. Analog 100 Units/ML 3 ML Pen SUBCUT SCH (20:47)
[2019-05-01] MEDS: Saccharomyces Boulardii (Probiotic) 250 MG Cap PO SCH (08:53)
[2019-05-01] MEDS: Chondroitin/Glucosamine Cap PO SCH (08:53)
[2019-05-01] MEDS: sulfaSALAzine 500 MG Tab PO SCH ×2 (08:53→18:06)
[2019-05-01] MEDS: Cholecalciferol (Vitamin D3) 25 MCG Tab PO SCH (08:53)
[2019-05-01] MEDS: Calcium Carbonate 500 MG Tablet PO SCH (08:53)
[2019-05-01] MEDS: Nystatin Topical Powder 15 GM Bottle TOP SCH ×2 (08:54→20:08)
[2019-05-01] MEDS: Lutein/Minerals/Vitamin C/Vitamin E Acetate Cap PO SCH (08:54)
[2019-05-01] MEDS: Potassium Chloride 20 MEQ Tab.ER PO SCH ×2 (08:54→20:09)
[2019-05-01] MEDS: Furosemide 40 MG Tab PO SCH (08:55)
[2019-05-01] MEDS: cloNIDine 0.1 MG Tab PO SCH (08:55)
[2019-05-01] MEDS: Loperamide 2 MG Cap PO SCH (08:55)
[2019-05-01] MEDS: Losartan 100 MG Tab PO SCH (08:57)
[2019-05-01] MEDS: amLODIPine 5 MG Tab PO SCH ×2 (09:02→09:41)
[2019-05-01] MEDS: Warfarin 5 MG Tab PO SCH (16:49)
[2019-05-01] MEDS: Donepezil 5 MG Tab PO SCH (20:08)
[2019-05-01] MEDS: QUEtiapine 25 MG Tab PO SCH (20:08)
[2019-05-01] MEDS: Rosuvastatin 10 MG Tab PO SCH (20:08)
[2019-05-01] MEDS: Tamsulosin 0.4 MG Cap.ER PO SCH (20:08)
[2019-05-01] MEDS: traZODone 50 MG Tab PO SCH (20:09)
[2019-05-01] MEDS: Insulin Glargine,Human Rec. Analog 100 Units/ML 3 ML Pen SUBCUT SCH (20:14)
[2019-05-02] MEDS: sulfaSALAzine 500 MG Tab PO SCH (08:25)
[2019-05-02] MEDS: Calcium Carbonate 500 MG Tablet PO SCH (09:58)
[2019-05-02] MEDS: Cholecalciferol (Vitamin D3) 25 MCG Tab PO SCH (09:58)
[2019-05-02] MEDS: Lutein/Minerals/Vitamin C/Vitamin E Acetate Cap PO SCH (09:58)
[2019-05-02] MEDS: Saccharomyces Boulardii (Probiotic) 250 MG Cap PO SCH (09:59)
[2019-05-02] MEDS: Furosemide 40 MG Tab PO SCH (09:59)
[2019-05-02] MEDS: Potassium Chloride 20 MEQ Tab.ER PO SCH ×2 (09:59→20:33)
[2019-05-02] MEDS: Nystatin Topical Powder 15 GM Bottle TOP SCH ×2 (09:59→20:54)
[2019-05-02] MEDS: Loperamide 2 MG Cap PO SCH (09:59)
[2019-05-02] MEDS: Chondroitin/Glucosamine Cap PO SCH (09:59)
[2019-05-02] MEDS: Losartan 100 MG Tab PO SCH (10:00)
[2019-05-02] MEDS: cloNIDine 0.1 MG Tab PO SCH (10:00)
[2019-05-02] MEDS: amLODIPine 5 MG Tab PO SCH (10:00)
[2019-05-02] MEDS: Warfarin 5 MG, Warfarin 2.5 MG PO SCH ×2 (16:49)
--- NOTE | 2019-05-02 18:20 | PN ---
FDATE SEEN: 05/02/2019 HISTORY: Stephen is an 78-year-old man from [place] with a history of chronic congestive heart failure, chronic essential hypertension, likely microvascular cognitive deficits, and gait disorder, slightly parkinsonian without a clear-cut diagnosis of Parkinson disease. He also has chronic atrial fibrillation, hypertension, and type 2 diabetes. The patient sustained a left posterior cerebral CVA resulting in right-sided weakness and mild dysarthria. He was admitted to the hospital and then subsequently to [facility] where he is examined. According to he and his , he has improved significantly since his event. He is now getting physical therapy and is walking in the halls with his walker. He stood up at the sink for over 15 minutes this morning. PHYSICAL EXAMINATION: VITAL SIGNS: Blood pressure 154/88, pulse 55 and regular, respirations 18, O2 saturation 98% on room air, temperature 97.6, and weight is 299 pounds, this is down from a clinic weight of 325 pounds 6 weeks ago. GENERAL: He is alert and comfortable. He is slow to answer questions, but memory is fair. HEENT: Throat is clear. LUNGS: Clear to the bases with good air movement. HEART: Regular without murmur or gallop. ABDOMEN: Obese, soft, and nontender. EXTREMITIES: Show 1+ pitting edema at the ankles. ASSESSMENT: 1. Left cerebrovascular accident with right partial hemiplegia, improving. 2. Chronic congestive heart failure. 3. Chronic essential hypertension. 4. Type 2 diabetes. 5. 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 6. History of diarrhea. 7. Hyperlipidemia. 8. Benign prostatic hyperplasia. PLAN: We will continue his physical therapy. We will discontinue his Norvasc because of his problem with chronic lower extremity edema. We will continue his warfarin, INR monitoring, diabetes monitoring with Lantus. I anticipate another week of inpatient therapy followed by plans for discharge to home with his if strong enough. /[id number] DAVE/SHU
[2019-05-02] MEDS: Donepezil 5 MG Tab PO SCH (20:32)
[2019-05-02] MEDS: Tamsulosin 0.4 MG Cap.ER PO SCH (20:32)
[2019-05-02] MEDS: Rosuvastatin 10 MG Tab PO SCH (20:33)
[2019-05-02] MEDS: traZODone 50 MG Tab PO SCH (20:33)
[2019-05-02] MEDS: Insulin Glargine,Human Rec. Analog 100 Units/ML 3 ML Pen SUBCUT SCH (20:37)
[2019-05-03] MEDS: Losartan 100 MG Tab PO SCH (08:39)
[2019-05-03] MEDS: cloNIDine 0.1 MG Tab PO SCH (08:39)
[2019-05-03] MEDS: Saccharomyces Boulardii (Probiotic) 250 MG Cap PO SCH (08:40)
[2019-05-03] MEDS: Potassium Chloride 20 MEQ Tab.ER PO SCH ×2 (08:40→20:46)
[2019-05-03] MEDS: Furosemide 40 MG Tab PO SCH (08:40)
[2019-05-03] MEDS: Chondroitin/Glucosamine Cap PO SCH (08:40)
[2019-05-03] MEDS: Loperamide 2 MG Cap PO SCH (08:40)
[2019-05-03] MEDS: Nystatin Topical Powder 15 GM Bottle TOP SCH ×2 (08:41→20:43)
[2019-05-03] MEDS: Lutein/Minerals/Vitamin C/Vitamin E Acetate Cap PO SCH (08:41)
[2019-05-03] MEDS: Calcium Carbonate 500 MG Tablet PO SCH (08:41)
[2019-05-03] MEDS: Cholecalciferol (Vitamin D3) 25 MCG Tab PO SCH (08:41)
[2019-05-03] MEDS: Warfarin 5 MG, Warfarin 2.5 MG PO SCH ×2 (17:03)
[2019-05-03] MEDS: Rosuvastatin 10 MG Tab PO SCH (20:44)
[2019-05-03] MEDS: Tamsulosin 0.4 MG Cap.ER PO SCH (20:45)
[2019-05-03] MEDS: traZODone 50 MG Tab PO SCH (20:47)
[2019-05-03] MEDS: Donepezil 5 MG Tab PO SCH (20:48)
[2019-05-03] MEDS: Acetaminophen 500 MG Tab PO PRN (20:50)
[2019-05-03] MEDS: Insulin Glargine,Human Rec. Analog 100 Units/ML 3 ML Pen SUBCUT SCH (20:51)
[2019-05-04] MEDS: cloNIDine 0.1 MG Tab PO SCH (09:12)
[2019-05-04] MEDS: Saccharomyces Boulardii (Probiotic) 250 MG Cap PO SCH (09:13)
[2019-05-04] MEDS: Losartan 100 MG Tab PO SCH (09:13)
[2019-05-04] MEDS: Potassium Chloride 20 MEQ Tab.ER PO SCH ×2 (09:14→20:22)
[2019-05-04] MEDS: Nystatin Topical Powder 15 GM Bottle TOP SCH ×2 (09:14→20:22)
[2019-05-04] MEDS: Furosemide 40 MG Tab PO SCH (09:14)
[2019-05-04] MEDS: Loperamide 2 MG Cap PO SCH (09:14)
[2019-05-04] MEDS: Calcium Carbonate 500 MG Tablet PO SCH (09:15)
[2019-05-04] MEDS: Cholecalciferol (Vitamin D3) 25 MCG Tab PO SCH (09:15)
[2019-05-04] MEDS: Lutein/Minerals/Vitamin C/Vitamin E Acetate Cap PO SCH (09:15)
[2019-05-04] MEDS: Chondroitin/Glucosamine Cap PO SCH (09:16)
[2019-05-04] MEDS: Warfarin 5 MG, Warfarin 2.5 MG PO SCH ×2 (16:14)
[2019-05-04] MEDS: Tamsulosin 0.4 MG Cap.ER PO SCH (20:19)
[2019-05-04] MEDS: Rosuvastatin 10 MG Tab PO SCH (20:20)
[2019-05-04] MEDS: Donepezil 5 MG Tab PO SCH (20:23)
[2019-05-04] MEDS: traZODone 50 MG Tab PO SCH (20:23)
[2019-05-04] MEDS: Acetaminophen 500 MG Tab PO PRN (20:27)
[2019-05-04] MEDS: Insulin Glargine,Human Rec. Analog 100 Units/ML 3 ML Pen SUBCUT SCH (20:28)
[2019-05-05] MEDS: Losartan 100 MG Tab PO SCH (10:03)
[2019-05-05] MEDS: Calcium Carbonate 500 MG Tablet PO SCH (10:03)
[2019-05-05] MEDS: Furosemide 40 MG Tab PO SCH (10:04)
[2019-05-05] MEDS: Loperamide 2 MG Cap PO SCH (10:04)
[2019-05-05] MEDS: cloNIDine 0.1 MG Tab PO SCH (10:04)
[2019-05-05] MEDS: Cholecalciferol (Vitamin D3) 25 MCG Tab PO SCH (10:05)
[2019-05-05] MEDS: Potassium Chloride 20 MEQ Tab.ER PO SCH ×2 (10:05→20:32)
[2019-05-05] MEDS: Saccharomyces Boulardii (Probiotic) 250 MG Cap PO SCH (10:05)
[2019-05-05] MEDS: Nystatin Topical Powder 15 GM Bottle TOP SCH ×2 (10:05→20:33)
[2019-05-05] MEDS: Lutein/Minerals/Vitamin C/Vitamin E Acetate Cap PO SCH (10:05)
[2019-05-05] MEDS: Chondroitin/Glucosamine Cap PO SCH (10:05)
[2019-05-05] MEDS: Warfarin 5 MG, Warfarin 2.5 MG PO SCH ×2 (16:16)
[2019-05-05] MEDS: Donepezil 5 MG Tab PO SCH (20:31)
[2019-05-05] MEDS: Rosuvastatin 10 MG Tab PO SCH (20:31)
[2019-05-05] MEDS: traZODone 50 MG Tab PO SCH (20:32)
[2019-05-05] MEDS: Tamsulosin 0.4 MG Cap.ER PO SCH (20:32)
[2019-05-05] MEDS: Insulin Glargine,Human Rec. Analog 100 Units/ML 3 ML Pen SUBCUT SCH (20:33)
[2019-05-06] MEDS: cloNIDine 0.1 MG Tab PO SCH (09:14)
[2019-05-06] MEDS: Loperamide 2 MG Cap PO SCH (09:15)
[2019-05-06] MEDS: Furosemide 40 MG Tab PO SCH ×2 (09:15→15:02)
[2019-05-06] MEDS: Potassium Chloride 20 MEQ Tab.ER PO SCH ×2 (09:16→20:43)
[2019-05-06] MEDS: Losartan 100 MG Tab PO SCH (09:16)
[2019-05-06] MEDS: Cholecalciferol (Vitamin D3) 25 MCG Tab PO SCH (09:16)
[2019-05-06] MEDS: Lutein/Minerals/Vitamin C/Vitamin E Acetate Cap PO SCH (09:16)
[2019-05-06] MEDS: Calcium Carbonate 500 MG Tablet PO SCH (09:16)
[2019-05-06] MEDS: Saccharomyces Boulardii (Probiotic) 250 MG Cap PO SCH (09:17)
[2019-05-06] MEDS: Chondroitin/Glucosamine Cap PO SCH (09:17)
[2019-05-06] MEDS: Nystatin Topical Powder 15 GM Bottle TOP SCH (09:23)
[2019-05-06] MEDS ORDERED: Metolazone 5 MG Tab PO ONE (10:24)
--- NOTE | 2019-05-06 13:31 | PN ---
DATE SEEN: 05/06/2019 HISTORY: Stephen is an 78-year-old man with a history of type 2 diabetes, chronic congestive heart failure, chronic essential hypertension, mild cognitive deficits, and BPH. He has a history of chronic atrial fibrillation, on anticoagulation. Mr. Delcid was admitted to [facility] on 04/22/2019 because of dizziness and weakness. He was found to have right arm weakness and MRI done showed a right CVA. He was enrolled in physical therapy, and he has slowly improved his strength. His cognitive deficits seem to have worsened, however. His diabetes has been fairly well controlled on his bedtime Lantus. PHYSICAL EXAMINATION: GENERAL: He is examined in his bed this morning. He is comfortable, alert, but obviously forgetful and a poor historian. VITAL SIGNS: Blood pressure 150/76, pulse 54 and irregular, respirations 22, O2 saturation 98% on room air. Weight 308 pounds, this is down 2 pounds from admission to swing bed. SKIN: Shows no rash. He has venous stasis changes of both lower extremities. Mouth is dry. LUNGS: Clear. HEART: Irregular and slow. No murmurs heard. ABDOMEN: Obese, soft, nontender. EXTREMITIES: Show 2+ pitting edema to the upper tibias. NEUROLOGIC: He is able to be up and walk up and down the halls with a walker and 1 assist, but with a slightly stooped gait. ASSESSMENT: 1. Left cerebrovascular accident with right-sided weakness, improving. 2. Chronic dementia. 3. Chronic congestive heart failure. 4. Type 2 diabetes. 5. Chronic atrial fibrillation, on anticoagulation. PLAN: We will continue therapy. We will diurese him additionally. We will cut his insulin down slightly as his Accu-Chek this morning was low. We will continue to provide palliative care measures for his dementia and underlying weak condition. I anticipate discharge to home with his and daughter within 3 to 5 days. /[id number] DAVE/SHU
[2019-05-06] MEDS: Warfarin 5 MG, Warfarin 2.5 MG PO SCH ×2 (16:41)
[2019-05-06] MEDS: Tamsulosin 0.4 MG Cap.ER PO SCH (20:42)
[2019-05-06] MEDS: traZODone 50 MG Tab PO SCH (20:43)
[2019-05-06] MEDS: Acetaminophen 500 MG Tab PO PRN (20:48)
[2019-05-06] MEDS: Insulin Glargine,Human Rec. Analog 100 Units/ML 3 ML Pen SUBCUT SCH (20:50)
[2019-05-06] MEDS ORDERED: Donepezil 10 MG Tab PO SCH (21:00)
[2019-05-07] MEDS: Furosemide 40 MG Tab PO SCH ×2 (08:21→14:02)
[2019-05-07] MEDS: Loperamide 2 MG Cap PO SCH (08:22)
[2019-05-07] MEDS: Losartan 100 MG Tab PO SCH (08:22)
[2019-05-07] MEDS: Potassium Chloride 20 MEQ Tab.ER PO SCH ×2 (08:23→20:43)
[2019-05-07] MEDS: Warfarin 5 MG, Warfarin 2.5 MG PO SCH ×2 (16:23)
[2019-05-07] MEDS: Tamsulosin 0.4 MG Cap.ER PO SCH (20:43)
[2019-05-07] MEDS: Insulin Glargine,Human Rec. Analog 100 Units/ML 3 ML Pen SUBCUT SCH (20:46)
[2019-05-07] MEDS: Acetaminophen 500 MG Tab PO PRN (20:50)
[2019-05-07] MEDS ORDERED: traZODone 50 MG Tab PO SCH (21:00)
[2019-05-07] MEDS ORDERED: cloNIDine 0.1 MG Tab PO SCH (21:00)
--- NOTE | 2019-05-08 05:07 | PN ---
DATE SEEN: 05/07/2019 HISTORY: Stephen is an 78-year-old man with chronic congestive heart failure, type 2 diabetes, hypertension, and a recent thrombotic cerebrovascular accident. He has been in swing bed recuperating and is making good progress with rising from a chair, walking with a walker, and sitting back down again with mostly supervision and minimal assistance. Stephen recently has been having bradycardia and his clonidine is being tapered because of this. I also discontinued his Aricept and Seroquel. Accu-Cheks have now been in the 100 to 200 range. He is taking Lantus 20 units of insulin at bedtime. Last laboratory data included an INR of 2.58, hemoglobin 11.7, BUN 25, creatinine 1.0, and BNP 1554. PHYSICAL EXAMINATION: GENERAL: He is alert. He is evaluated during sitting, standing, and walking, which he has done with good balance, a belt in place, and the therapist alongside. HEART: Slightly irregular in the 50s. Blood pressure sitting 149/81, O2 saturation is 98% on room air. ASSESSMENT: 1. Recent stroke with weakness now and improvement. 2. Chronic congestive heart failure, improving. 3. Type 2 diabetes, stable. 4. Dementia. 5. Hypertension. 6. Benign prostatic hyperplasia. 7. Atrial fibrillation, on warfarin. PLAN: We will continue therapy, current medications, continue to monitor and anticipate discharge to home with his within the next 48 to 72 hours. /[id number] DAVE/SHU
[2019-05-08] MEDS: Furosemide 40 MG Tab PO SCH (08:38)
[2019-05-08] MEDS: Losartan 100 MG Tab PO SCH (08:44)
[2019-05-08] MEDS: Loperamide 2 MG Cap PO SCH (08:44)
[2019-05-08] MEDS: Potassium Chloride 20 MEQ Tab.ER PO SCH ×2 (08:45→20:28)
[2019-05-08 10:25] VITALS: PULSE 61
[2019-05-08] MEDS: Warfarin 5 MG Tab PO SCH (15:35)
[2019-05-08] MEDS: Tamsulosin 0.4 MG Cap.ER PO SCH (20:28)
[2019-05-08] MEDS: Insulin Glargine,Human Rec. Analog 100 Units/ML 3 ML Pen SUBCUT SCH (20:29)
[2019-05-08] MEDS: Acetaminophen 500 MG Tab PO PRN (20:33)
[2019-05-09] MEDS ORDERED: Furosemide 40 MG Tab PO SCH (09:00)
[2019-05-09] MEDS: Potassium Chloride 20 MEQ Tab.ER PO SCH (09:19)
[2019-05-09] MEDS: Losartan 100 MG Tab PO SCH (09:19)
[2019-05-09 09:20] VITALS: BP 167/96
[2019-05-09] MEDS: Loperamide 2 MG Cap PO SCH (09:20)
[2019-05-09] MEDS ORDERED: Magnesium Hydroxide 400 MG/5 ML Susp 30 ML Cup PO PRN (10:41)
--- NOTE | 2019-05-10 07:33 | DISCH ---
DISCHARGE DATE: 05/09/2019 HISTORY: Stephen is an 78-year-old man with congestive heart failure, type 2 diabetes, obesity, mild to moderate cognitive deficits, BPH, and chronic atrial fibrillation. He was admitted with weakness after a left parietal occipital stroke. He has gone through physical therapy and was placed in the swing bed on 04/26/2019. He has done very well in swing bed and he is improved to the point where he is walking, getting up out of a chair without an psychologist research assistant, walks with a walker up and down the halls without assistance, and can sit back down. He is discharged to home with home health care in improved condition to continue medications as follows: 1. Warfarin sliding scale with an INR goal of 2 to 3. 2. Vitamin B complex 1 daily. 3. Crestor 5 mg at bedtime. 4. Benicar 40 mg daily. 5. Ocuvite 1 daily. 6. Glargine insulin 20 units at bedtime. 7. Glucosamine and chondroitin 1 daily. 8. Vitamin D3 1000 units daily. 9. Calcium with D, Os-Porter 500 one daily. 10.Tamsulosin 0.4 mg daily. 11.Potassium 20 mEq b.i.d. 12.Imodium 4 mg daily. 13.Furosemide 40 mg daily. 14.Tylenol p.r.n. He is to follow up to see me in the clinic in 3 weeks and call should there be questions or problems prior to that time. /[id number] DAVE/SHU
== END 2019-05-09 14:25 | disposition home health service (06) | DRG 65 ==
LOC: FB.MS 14:27
PROVIDERS: ADMIT Family Medicine; ATTEND Family Medicine
DX: I63.532 Cerebral infarction due to unspecified occlusion or stenosis of left posterior cerebral artery (principal); G81.91 Hemiplegia, unspecified affecting right dominant side; I48.20 Chronic atrial fibrillation, unspecified; I13.0 Hypertensive heart and chronic kidney disease with heart failure and stage 1 through stage 4 chronic kidney disease, or unspecified chronic kidney disease; I50.9 Heart failure, unspecified; E66.9 Obesity, unspecified; E78.00 Pure hypercholesterolemia, unspecified; J44.9 Chronic obstructive pulmonary disease, unspecified; K21.9 Gastro-esophageal reflux disease without esophagitis; N18.3 Chronic kidney disease, stage 3 (moderate); M19.90 Unspecified osteoarthritis, unspecified site; G62.9 Polyneuropathy, unspecified; G20 Parkinson's disease; F03.90 Unspecified dementia, unspecified severity, without behavioral disturbance, psychotic disturbance, mood disturbance, and anxiety; E11.22 Type 2 diabetes mellitus with diabetic chronic kidney disease; F32.9 Major depressive disorder, single episode, unspecified; Z96.653 Presence of artificial knee joint, bilateral; Z96.612 Presence of left artificial shoulder joint; E78.5 Hyperlipidemia, unspecified; N40.0 Benign prostatic hyperplasia without lower urinary tract symptoms; Z85.828 Personal history of other malignant neoplasm of skin; Z86.010 Personal history of colon polyps; Z90.89 Acquired absence of other organs; Z98.41 Cataract extraction status, right eye; Z98.42 Cataract extraction status, left eye; Z90.49 Acquired absence of other specified parts of digestive tract; Z98.890 Other specified postprocedural states; Z98.52 Vasectomy status; Z79.899 Other long term (current) drug therapy; Z79.01 Long term (current) use of anticoagulants; Z79.4 Long term (current) use of insulin; Z68.33 Body mass index [BMI] 33.0-33.9, adult
CPT/HCPCS: 36415; 80053; 80069; 82962; 83880; 85018; 85025; 85610; 93005; 94760; 97110-GO; 97110-GP; 97116-GP; 97530-GO; 97530-GP; 97535-GO; A9270-GY; J1650; J1815-GY

== ENCOUNTER 2020-07-30 09:07 | Inpatient (IN) | payer MEDICARE, BC ==
[2020-08-03] MEDS ORDERED: Insulin Lispro 100 Unit/ML 3 ML KwikPen SUBCUT ONE ×2 (08:31→18:40)
[2020-08-03] MEDS ORDERED: Ondansetron 4 MG Tab.DIS PO PRN (15:11)
[2020-08-03] MEDS ORDERED: 50% Dextrose in Water 50 ML Syringe IVPUSH PRN (15:51)
[2020-08-03] MEDS ORDERED: Nitroglycerin 0.4 MG Tab.SL SL PRN (15:51)
[2020-08-03] MEDS ORDERED: Bisacodyl 10 MG Supp RECTAL PRN (15:51)
[2020-08-03] MEDS ORDERED: Albuterol 8 GM Inhaler INH PRN (15:51)
[2020-08-03] MEDS ORDERED: Glucagon,Human Recombinant 1 MG Vial IM PRN (15:51)
[2020-08-03] MEDS ORDERED: Albuterol/Ipratropium 3.0-0.5 MG/3 ML Neb Soln INH PRN (15:51)
[2020-08-03] MEDS ORDERED: Calcium Carbonate 500 MG Tab.Chew PO PRN (15:51)
[2020-08-03] MEDS: hydrALAZINE 25 MG Tab PO SCH ×2 (16:58→20:20)
[2020-08-03] MEDS: cefTRIAXone 2 GM Vial IVPUSH SCH (17:00)
[2020-08-03] MEDS: Carboxymethylcellulose Sodium 0.5% Ophth Soln 0.4 ML UD Box of 30 EYEBOTH SCH ×2 (17:01→20:25)
--- NOTE | 2020-08-03 17:59 | PCM.HP.2 ---
H&P History of Present Illness - General Date of Service: 08/03/20 Admit Problem/Dx: Admission Diagnosis/Problem Admission Diagnosis/Problem Rehabilitation therapy Source of Information: Patient, Family, Provider History Limitations: Reports: Physical Impairment - History of Present Illness Initial Comments - Free Text/Narative: Stephen presents for admission for swing bed placement for rehab, he had NSTEMI, type 2, small subarachnoid hemorrhage which did not require surgical intervention, bacteremia with Strep on Rocephin until 08/04. He had a SHAMEKA, no vegetations seen. 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 His aspirin was discontinued. Will continue on Plavix 75 mg daily for next year then will readdress aspirin at that time. Eliquis dose for his atrial fibrillation was decreased to 2.5 mg bid as his renal function went up to 2.0. Creatinine has been stable at 2.0 for past 4 days, they felt most likely secondary to angiogram. He has been requiring assist x 2, sitting on edge of bed tid while at [facility]. He is a Diabetic, they had not been giving his short acting insulin due to hypoglycemia but were given his Lantus 35 units. History of stroke, obstructive sleep apnea on CPAP auto setting up to 8 mmH2O. His & son also stated they noticed a sore on one of his toes yesterday, scabbed over. He has seen podiatry in the past and has his nail care done by nurse at local clinic. He has been incontinent of urine since they took his Cotton out, not aware he is even going to the bathroom. He had diarrhea stool prior to leaving [place] today and again on arrival here. Lasix had been held throughout hospital stay, no signs of CHF, was not restarted on discharge. - Related Data Allergies/Adverse Reactions: Allergies Allergy/AdvReac Type Severity Reaction Status Date / Time No Known Allergies Allergy Verified 04/21/19 22:38 Home Medications: Home Meds Glucosam/Chondr/Collagn/Hyalur [Glucosamine & Chondroitin Cap] 1 cap PO DAILY 05/30/14 [History] Vitamin B Complex 1 cap PO DAILY 05/30/14 [History] Zinc 50 mg PO DAILY 01/09/16 [History] Lutein/Min/Vit C/Vit E Acetate [Ocuvite Lutein] 1 cap PO DAILY 01/28/19 [History] Calcium Carbonate/Vitamin D3 [Os-Porter 500+D] 1 each PO DAILY 04/21/19 [History] Tamsulosin [Flomax] 0.4 mg PO BEDTIME cap.er 04/25/19 [Rx] Acetaminophen [Tylenol] 650 mg PO Q4H PRN 08/03/20 [History] Albuterol Sulfate [Albuterol Sulfate Hfa] 2 puff IH Q4H PRN 08/03/20 [History] Albuterol/Ipratropium [DuoNeb 3.0-0.5 MG/3 ML] 3 ml IH Q4H PRN 08/03/20 [History] Apixaban [Eliquis] 2.5 mg PO BID 08/03/20 [History] Bisacodyl [Gentle Laxative] 10 mg RECTAL DAILY PRN 08/03/20 [History] Calcium Carbonate [Tums] 500 mg PO QID PRN 08/03/20 [History] Clopidogrel [Plavix] 75 mg PO DAILY 08/03/20 [History] Dextrose 50% in Water [Dextrose 50%-Water] 50 ml IV ASDIRECTED PRN 08/03/20 [History] Dextrose [Glucose] 16 gm PO ASDIRECTED PRN 08/03/20 [History] Docusate Sodium [Docusol] 1 enema RECTAL DAILY PRN 08/03/20 [History] Docusate Sodium/Sennosides [Senna Plus] 2 tab PO BID PRN 08/03/20 [History] Donepezil HCl 20 mg PO DAILY 08/03/20 [History] Insulin Aspart [NovoLOG] 2 - 8 unit SUBCUT TIDMEALS PRN 08/03/20 [History] Insulin Aspart [NovoLOG] 8 units SUBCUT TIDMEALS 08/03/20 [History] Insulin Glarg,Human.Rec.Analog [Lantus Solostar] 35 units SUBCUT DAILY 08/03/20 [History] Melatonin 6 mg PO BEDTIME PRN 08/03/20 [History] Metoprolol Tartrate 12.5 mg PO BID 08/03/20 [History] Mirtazapine 15 mg PO BEDTIME 08/03/20 [History] Nitroglycerin [Nitrostat] 0.4 mg SL Q5M PRN 08/03/20 [History] Ondansetron [Zofran ODT] 4 mg PO QID PRN 08/03/20 [History] Ondansetron [Zofran] 4 mg IVPUSH QID PRN 08/03/20 [History] Polyvinyl Alcohol/Povidone [Refresh] 1 drop EYEBOTH QID 08/03/20 [History] Potassium Chloride [Klor-Con M20] 20 meq PO DAILY 08/03/20 [History] QUEtiapine [SEROquel] 37.5 mg PO DAILY@1800 08/03/20 [History] Rosuvastatin [Crestor] 40 mg PO DAILY 08/03/20 [History] Umeclidinium Brm/Vilanterol Tr [Anoro Ellipta 62.5-25 MCG] 1 puff IH DAILY 08/03/20 [History] amLODIPine Besylate [Amlodipine Besylate] 10 mg PO DAILY 08/03/20 [History] cefTRIAXone [Rocephin] 2 gm IVPUSH DAILY@1600 08/03/20 [History] cloNIDine [Catapres] 0.1 mg PO BID 08/03/20 [History] glucagon HCL [Glucagon HCl] 1 mg IM ASDIRECTED PRN 08/03/20 [History] hydrALAZINE [Apresoline] 10 mg IV Q6H PRN 08/03/20 [History] hydrALAZINE [Apresoline] 75 mg PO TID 08/03/20 [History] polyethylene glycoL 3350 [MiraLAX] 17 gm PO DAILY 08/03/20 [History] Past Medical History HEENT History: Reports: Cataract Cardiovascular History: Reports: Afib, High Cholesterol, Hypertension Respiratory History: Reports: Asthma, COPD Other Respiratory History: mild COPD - has albuterol inhaler Gastrointestinal History: Reports: GERD Other Gastrointestinal History: bacterial colon infection Genitourinary History: Reports: Chronic Renal Insuffiency, Other (See Below) Other Genitourinary History: STAGE 3 RENAL FAILURE Musculoskeletal History: Reports: Arthritis, Osteoarthritis Other Musculoskeletal History: 3 rib fx L lat Neurological History: Reports: Neuropathy, Peripheral, Parkinson's, Other (See Below) Psychiatric History: Reports: Dementia, Depression Endocrine/Metabolic History: Reports: Diabetes, Type II, Obesity/BMI 30+ Hematologic History: Reports: Anticoagulation Therapy Immunologic History: Reports: None Oncologic (Cancer) History: Reports: Basal Cell Carcinoma Other Oncologic History: had CA in colon polyp Dermatologic History: Reports: Eczema, Other (See Below) Other Dermatologic History: fatty tumor removed from back. Has 'hematoma to R inner thigh from fall earlier this summer, was drained approx 2 1/[address] Mo[address]. ROSACEA - Infectious Disease History Infectious Disease History: Reports: Chicken Pox, Measles, Mumps - Past Surgical History Head Surgeries/Procedures: Reports: None HEENT Surgical History: Reports: Cataract Surgery, Tonsillectomy Other HEENT Surgeries/Procedures: bilat cataract Cardiovascular Surgical History: Reports: Carotid Stents Respiratory Surgical History: Reports: None GI Surgical History: Reports: Cholecystectomy, Hernia, Inguinal, Hernia Repa ir/Other Male Surgical History: Reports: Vasectomy, Other (See Below) Endocrine Surgical History: Reports: None Neurological Surgical History: Reports: None Musculoskeletal Surgical History: Reports: Knee Replacement, ORIF, Shoulder Replacement, Other (See Below) Other Musculoskeletal Surgeries/Procedures:: bilat knee replacement, L shoulder replacement, L femur ORIF Oncologic Surgical History: Reports: None Dermatological Surgical History: Reports: None Social & Family History - Family History Family Medical History: No Pertinent Family History - Tobacco Use Tobacco Use Status *Q: Former Tobacco User Used Tobacco, but Quit: No - Caffeine Use Caffeine Use: Reports: Coffee - Recreational Drug Use Recreational Drug Use: No H&P Review of Systems - Review of Systems: Review Of Systems: Comprehensive ROS is negative, except as noted in HPI. Exam - Exam Exam: See Below - Vital Signs Vital Signs: Last Vital Signs Temp 98 F 08/03/20 17:00 Pulse 64 08/03/20 17:00 Resp 18 08/03/20 17:00 BP 156/68 H 08/03/20 17:00 Pulse Ox 100 08/03/20 17:00 Weight: 310 lb 1.6 oz - Exam Quality Assessment: No: Urinary Catheter General: Alert, Cooperative, Other (followed commands, went to sleep as soon as he laid down.). No: Mild Distress HEENT: PERRLA, EOMI, Hearing Intact, Mucosa Moist & [place] Lungs: Clear to Auscultation, Normal Respiratory Effort, Decreased Breath Sounds (bibasilar). No: Crackles, Wheezing Cardiovascular: Regular Rate, Irregular Rhythm, Systolic Murmur GI/Abdominal Exam: Normal Bowel Sounds, Soft, Non-Tender, No Distention (Male) Exam: Deferred Rectal (Males) Exam: Deferred Extremities: Pedal Edema (1+ BLE, stasis dermatits BLE) Peripheral Pulses: 2+: Radial (L), Radial (R) Neuro Extensive - Mental Status: Memory Loss-Recent Events - Patient Data Lab Results Last 24 hrs: Laboratory Results - last 24 hr 08/03/20 Range/Units 17:17 POC Glucose 164 H (80-116) mg/dL Sepsis Event Note - Evaluation Sepsis Screening Result: No Definite Risk - Focused Exam Vital Signs: Vital Signs Temp Pulse Resp BP BP Pulse Ox 08/03/20 17:00 98 F 64 18 156/68 H 100 08/03/20 16:58 156/68 H *Q Meaningful Use (ADM) - VTE *Q VTE Mechanical Contraindications *Q: At Risk for Falls VTE Pharmacological Contraindications *Q: Risk of Bleeding - VTE Risk Assess *Q Each Risk Factor Represents 1 Point: Acute myocardial infarction, Congestive heart failure (CHF) Total Score 1 Point Risk Factors: 2 Each Risk Factor Represents 2 Points: None Total Score 2 Point Risk Factors: 0 Each Risk Factor Represents 3 Points: Age 75 Years or Greater Total Score 3 Point Risk Factors: 3 Each Risk Factor Represents 5 Points: None Total Score 5 Point Risk Factors: 0 Venous Thromboembolism Risk Factor Score *Q: 5 - Problem List (1) NSTEMI (non-ST elevated myocardial infarction) SNOMED Code(s): 67917919 ICD Code: I21.4 - NON-ST ELEVATION (NSTEMI) MYOCARDIAL INFARCTION Status: Acute Current Visit: Yes Onset Date: ~07/2020 (2) Subarachnoid hemorrhage SNOMED Code(s): 635349501 ICD Code: I60.9 - NONTRAUMATIC SUBARACHNOID HEMORRHAGE, UNSPECIFIED Status: Acute Current Visit: Yes Onset Date: ~07/2020 (3) S/P right coronary artery (RCA) stent placement SNOMED Code(s): 73985013060415, 90667133856182 ICD Code: Z95.5 - PRESENCE OF CORONARY ANGIOPLASTY IMPLANT AND GRAFT Status: Acute Current Visit: Yes (4) Weakness SNOMED Code(s): 75769715 ICD Code: R53.1 - WEAKNESS Status: Acute Current Visit: Yes (5) Bacteremia due to Streptococcus SNOMED Code(s): 131541673768 ICD Code: R78.81 - BACTEREMIA; B95.5 - UNSP STREPTOCOCCUS THE CAUSE OF DISEASES CLASSD ELSWHR Status: Acute Current Visit: Yes Problem Details: Complete antibiotic course of Rocephin 4.28 (6) Chronic renal failure, stage 3 (moderate) SNOMED Code(s): 01737140, 341335030 ICD Code: N18.3 - CHRONIC KIDNEY DISEASE, STAGE 3 (MODERATE) * DO NOT USE * Status: Acute Current Visit: No (7) Diarrhea SNOMED Code(s): 99167591 ICD Code: R19.7 - DIARRHEA, UNSPECIFIED Status: Acute Current Visit: No Qualifiers: Diarrhea type: unspecified type (8) Hyperlipidemia SNOMED Code(s): 46904706 ICD Code: E78.5 - HYPERLIPIDEMIA, UNSPECIFIED Status: Chronic Current Visit: No (9) Hypertension SNOMED Code(s): 27073071 ICD Code: I10 - ESSENTIAL (PRIMARY) HYPERTENSION Status: Chronic Current Visit: No (10) Type 2 diabetes mellitus SNOMED Code(s): 43644325 ICD Code: E11.9 - TYPE 2 DIABETES MELLITUS WITHOUT COMPLICATIONS Status: Chronic Current Visit: No Qualifiers: Diabetes mellitus long term acute care registered nurse insulin use: with usp use (11) COPD with asthma SNOMED Code(s): 41875191797049372 ICD Code: J44.9 - CHRONIC OBSTRUCTIVE PULMONARY DISEASE, UNSPECIFIED Status: Chronic Current Visit: No (12) Chronic atrial fibrillation SNOMED Code(s): 004523738 ICD Code: I48.20 - CHRONIC ATRIAL FIBRILLATION, UNSPECIFIED Status: Chronic Current Visit: No (13) [facility] current use of anticoagulant SNOMED Code(s): 007964742 ICD Code: Z79.01 - 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 (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) USE OF ANTICOAGULANTS Status: Chronic Current Visit: No (14) Memory loss SNOMED Code(s): 42604592 ICD Code: R41.3 - OTHER AMNESIA Status: Chronic Current Visit: No Problem List Initiated/Reviewed/Updated: Yes Orders Last 24hrs: Active Orders 24 hr Category Date Time Status Patient Status [ADT] Routine ADT 08/03/20 15:11 Active Blood Glucose Check, Bedside [RC] 06,1130,1730,20 Care 08/03/20 15:51 Active CPAP Noctural Home [RT BiPAP/CPAP] [RC] ASDIRECTED Care 08/03/20 15:51 Active Height and Weight [RC] WEEKLY Care 08/03/20 15:11 Active Oxygen Therapy [RC] .PRN Care 08/03/20 15:11 Active RT Aerosol Therapy [RC] .PRN Care 08/03/20 15:55 Active RT Post Treatment Assessment [RC] Click to Edit Care 08/03/20 15:55 Active Up With Assistance [RC] ASDIRECTED Care 08/03/20 15:11 Active Up to Chair [RC] ASDIRECTED Care 08/03/20 15:11 Active VTE/DVT Education [RC] Per Unit Routine Care 08/03/20 15:11 Active Vital Signs [RC] 08 Care 08/03/20 15:11 Active OT Evaluation and Treatment [CONS] Routine Cons 08/03/20 15:11 Active PT Evaluation and Treatment [CONS] Routine Cons 08/03/20 15:11 Active Consistent Carbohydrate Diet [DIET] Diet 08/04/20 Breakfast Active Heart Healthy Diet [DIET] Diet 08/03/20 Dinner Active Acetaminophen [TylenoL] Med 08/03/20 15:51 Active 650 mg PO Q4H PRN Albuterol [Ventolin HFA] Med 08/03/20 15:51 Active 0 gm INH Q4H PRN Albuterol/Ipratropium [DuoNeb 3.0-0.5 MG/3 ML] Med 08/03/20 15:51 Active 3 ml INH Q4H PRN Apixaban [Eliquis] Med 08/03/20 21:00 Active 2.5 mg PO BID Calcium Carbonate [Oyster Shell Calcium] Med 08/04/20 09:00 Active 500 mg PO DAILY Calcium Carbonate [Tums] Med 08/03/20 15:51 Active 500 mg PO QID PRN Carboxymethylcellulose Sodium [Refresh Plus 0.5%] Med 08/03/20 17:00 Active 0 each EYEBOTH QID Chondroitin/Glucosamine [Glucosamine-Chondroitin 500- Med 08/04/20 09:00 Active 400 Capsule] 1 cap PO DAILY Clopidogrel [Plavix] Med 08/04/20 09:00 Active 75 mg PO DAILY Dextrose 50% in Water Med 08/03/20 15:51 Active 50 ml IVPUSH ASDIRECTED PRN Donepezil [Aricept] Med 08/04/20 09:00 Active 20 mg PO DAILY Glucagon,Human Recombinant [GlucaGen] Med 08/03/20 15:51 Active 1 mg IM ASDIRECTED PRN Insulin Glarg,Human.Rec.Analog [LantUS Solostar] Med 08/04/20 09:00 Active 35 units SUBCUT DAILY Insulin Lispro [HumaLOG] Med 08/03/20 18:00 Active See Protocol SUBCUT TIDMEALS Lutein/Min/Vit C/Vit E Acetate [Ocuvite Lutein] Med 08/04/20 09:00 Active 1 each PO DAILY Melatonin Med 08/03/20 15:51 Active 6 mg PO BEDTIME PRN Metoprolol Tartrate [Lopressor] Med 08/03/20 21:00 Active 12.5 mg PO BID Mirtazapine [Remeron] Med 08/03/20 21:00 Active 15 mg PO BEDTIME Nitroglycerin [Nitrostat] Med 08/03/20 15:51 Active 0.4 mg SL Q5M PRN Ondansetron [Zofran ODT] Med 08/03/20 15:11 Active 4 mg PO Q6H PRN QUEtiapine [SEROqueL] Med 08/03/20 18:00 Active 37.5 mg PO DAILY@1800 Rosuvastatin [Crestor] Med 08/04/20 09:00 Active 40 mg PO DAILY Tamsulosin [Flomax] Med 08/03/20 21:00 Active 0.4 mg PO BEDTIME Umeclidinium Brm/Vilanterol Tr [Anoro Ellipta 62.5-25 Med 08/04/20 09:00 Pending MCG] 1 puff IH DAILY Vitamin B Complex with C [Total B With C] Med 08/04/20 09:00 Active 1 each PO DAILY Zinc Sulfate [Zincate] Med 08/04/20 09:00 Active 220 mg PO DAILY amLODIPine [Norvasc] Med 08/04/20 09:00 Active 10 mg PO DAILY bisacodyL [Dulcolax] Med 08/03/20 15:51 Active 10 mg RECTAL DAILY PRN cefTRIAXone [Rocephin] Med 08/03/20 16:00 Active 2 gm IVPUSH DAILY@1600 cloNIDine [Catapres] Med 08/03/20 21:00 Active 0.1 mg PO BID hydrALAZINE [Apresoline] Med 08/03/20 16:00 Active 75 mg PO TID polyethylene glycoL 3350 [MiraLAX] Med 08/03/20 15:51 Active 17 gm PO DAILY PRN Medication Orders Acetaminophen (Acetaminophen 325 Mg Tab) 650 mg PO Q4H PRN PRN Reason: MILD PAIN Albuterol (Albuterol 8 Gm Inhaler) 0 gm INH Q4H PRN PRN Reason: SHORTNESS OF BREATH/WHEEZE Albuterol/Ipratropium (Albuterol/Ipratropium 3.0-0.5 Mg/3 Ml Neb Soln) 3 ml INH Q4H PRN PRN Reason: SHORTNESS OF BREATH/WHEEZE Amlodipine Besylate (Amlodipine 10 Mg Tab) 10 mg PO DAILY [facility] Apixaban (Apixaban 5 Mg Tab) 2.5 mg PO BID [facility] Artificial Tears (Carboxymethylcellulose Sodium 0.5% Ophth Soln 0.4 Ml Ud Box Of 30) 0 each EYEBOTH QID [facility] Last Admin: 08/03/20 17:01 Dose: 1 drop Documented by: KRISTIAN Bisacodyl (Bisacodyl 10 Mg Supp) 10 mg RECTAL DAILY PRN PRN Reason: Constipation Calcium Carbonate/Glycine (Calcium Carbonate 500 Mg Tab.Chew) 500 mg PO QID PRN PRN Reason: Indigestion Calcium Carbonate/Glycine (Calcium Carbonate 500 Mg Tablet) 500 mg PO DAILY [facility] Ceftriaxone Sodium (Ceftriaxone 2 Gm Vial) 2 gm IVPUSH DAILY@1600 [facility] Stop: 08/04/20 16:01 Last Admin: 08/03/20 17:00 Dose: 2 gm Documented by: KRISTIAN Clonidine HCl (Clonidine 0.1 Mg Tab) 0.1 mg PO BID [facility] Clopidogrel Bisulfate (Clopidogrel 75 Mg Tab) 75 mg PO DAILY [facility] Dextrose/Water (50% Dextrose In Water 50 Ml Syringe) 50 ml IVPUSH ASDIRECTED PRN PRN Reason: Hypoglycemia Donepezil HCl (Donepezil 10 Mg Tab) 20 mg PO DAILY [facility] Glucagon (Glucagon,Human Recombinant 1 Mg Vial) 1 mg IM ASDIRECTED PRN PRN Reason: Hypoglycemia Glucosamine/Chondroitin (Chondroitin/Glucosamine Cap) 1 cap PO DAILY [facility] Hydralazine HCl (Hydralazine 25 Mg Tab) 75 mg PO TID [facility] Last Admin: 08/03/20 16:58 Dose: 75 mg Documented by: KRISTIAN Insulin Glargine (Insulin Glargine,Human Rec. Analog 100 Units/Ml 3 Ml Pen) 35 units SUBCUT DAILY [facility] Insulin Human Lispro (Insulin Lispro 100 Unit/Ml 3 Ml Kwikpen) 0 unit SUBCUT TIDMEALS [facility]; Protocol Melatonin (Melatonin 3 Mg Tab) 6 mg PO BEDTIME PRN PRN Reason: Insomnia Metoprolol Tartrate (Metoprolol Tartrate 25 Mg Tab) 12.5 mg PO BID [facility] Mirtazapine (Mirtazapine 15 Mg Tab) 15 mg PO BEDTIME [facility] Multivitamins (Vitamin B Complex With Vitamin C Tab) 1 each PO DAILY [facility] Nitroglycerin (Nitroglycerin 0.4 Mg Tab.Sl) 0.4 mg SL Q5M PRN PRN Reason: Chest Pain Non-Formulary Medication (Umeclidinium Brm/Vilanterol Tr [Anoro Ellipta 62.5-25 Mcg]) 1 puff IH DAILY [facility] Ondansetron HCl (Ondansetron 4 Mg Tab.Dis) 4 mg PO Q6H PRN PRN Reason: nausea, able to take PO Polyethylene Glycol (Polyethylene Glycol 3350 Powder 17 Gm Packet) 17 gm PO DAILY PRN PRN Reason: Constipation Quetiapine Fumarate (Quetiapine 25 Mg Tab) 37.5 mg PO DAILY@1800 [facility] Rosuvastatin Calcium (Rosuvastatin 20 Mg Tab) 40 mg PO DAILY [facility] Tamsulosin HCl (Tamsulosin 0.4 Mg Cap.Er) 0.4 mg PO BEDTIME [facility] Vit C/Vit E/Zinc/Copper/Lutein (Lutein/Minerals/Vitamin C/Vitamin E Acetate Cap) 1 each PO DAILY [facility] Zinc Sulfate (Zinc Sulfate 220 Mg Cap) 220 mg PO DAILY [facility] Assessment/Plan Comment:: 1. Admit to swing bed for rehab services due to weakness. 2. Weakness/deconditioning s/p NSTEMI, RCA stent placement, Subarachnoid hemorrhage: PT/OT elevate & treat. 3. Bacteremia 2/2 strep: Rocephin 2 g IV daily at 1600, last dose 08/04. 4. NSTEMI, RCA stent placement: cardiac rehab went appropriate, Eliquis 2.5 mg bid, Plavix 75 mg daily. 5. DM: Lantus 35 units daily, Humalog low dose sliding scale. Accuchecks qidac&hs. 6. Diet: Diabetic diet. 7. Activity: up with assistance, up to chair. 8. DVT prophylaxis: Eliquis & Plavix. 9. CODE STATUS: DNR/DNI verified by his son.
[2020-08-03] MEDS: QUEtiapine 25 MG Tab PO SCH (18:48)
[2020-08-03] MEDS: Insulin Lispro 100 Unit/ML 3 ML KwikPen SUBCUT SCH (18:48)
[2020-08-03] MEDS: Metoprolol Tartrate 25 MG Tab PO SCH (20:20)
[2020-08-03] MEDS: Apixaban 5 MG Tab PO SCH (20:21)
[2020-08-03] MEDS: Mirtazapine 15 MG Tab PO SCH (20:22)
[2020-08-03] MEDS: cloNIDine 0.1 MG Tab PO SCH (20:22)
[2020-08-03] MEDS: Tamsulosin 0.4 MG Cap.ER PO SCH (20:24)
[2020-08-03] MEDS: Acetaminophen 325 MG Tab PO PRN (20:28)
[2020-08-04] MEDS: Insulin Lispro 100 Unit/ML 3 ML KwikPen SUBCUT SCH ×3 (08:14→17:47)
[2020-08-04] MEDS: hydrALAZINE 25 MG Tab PO SCH ×3 (08:20→20:57)
[2020-08-04] MEDS: Metoprolol Tartrate 25 MG Tab PO SCH (08:20)
[2020-08-04] MEDS: Chondroitin/Glucosamine Cap PO SCH (08:21)
[2020-08-04] MEDS: Zinc Sulfate 220 MG Cap PO SCH (08:21)
[2020-08-04] MEDS: Donepezil 10 MG Tab PO SCH (08:21)
[2020-08-04] MEDS: Calcium Carbonate 500 MG Tablet PO SCH (08:22)
[2020-08-04] MEDS: Vitamin B Complex with Vitamin C Tab PO SCH (08:22)
[2020-08-04] MEDS: amLODIPine 10 MG Tab PO SCH (08:22)
[2020-08-04] MEDS: Clopidogrel 75 MG Tab PO SCH (08:22)
[2020-08-04] MEDS: Lutein/Minerals/Vitamin C/Vitamin E Acetate Cap PO SCH (08:23)
[2020-08-04] MEDS: Rosuvastatin 20 MG Tab PO SCH (08:23)
[2020-08-04] MEDS: cloNIDine 0.1 MG Tab PO SCH ×2 (08:23→20:57)
[2020-08-04] MEDS: Apixaban 5 MG Tab PO SCH ×2 (08:26→20:57)
[2020-08-04] MEDS ORDERED: Insulin Glargine,Human Rec. Analog 100 Units/ML 3 ML Pen SUBCUT ONE (08:31)
[2020-08-04] MEDS: Insulin Glargine,Human Rec. Analog 100 Units/ML 3 ML Pen SUBCUT SCH (08:32)
[2020-08-04] MEDS: Carboxymethylcellulose Sodium 0.5% Ophth Soln 0.4 ML UD Box of 30 EYEBOTH SCH ×4 (08:36→20:58)
[2020-08-04] MEDS: Tiotropium BR/Olodaterol HCL 4 GM Inhalation Spray 2.5mcg/1 dose; 10 doses INH SCH (11:06)
[2020-08-04] MEDS: sulfaSALAzine 500 MG Tab PO SCH ×2 (11:25→20:56)
[2020-08-04] MEDS: Loperamide 2 MG Cap PO SCH ×2 (11:25→20:56)
--- OUTSIDE RECORDS SUMMARY | 2020-08-04 12:21 | XMSREPORT ---
:1940 Author Organization [facility] s Address [facility] [place] [address] Care Team Providers Name Role Phone Magdy Jones MD Primary Care Provider Magdy Jones MD Attributed Provider Reason for Referral FCC Prior Auth (Routine) Status Reason Specialty Diagnoses / Referred By Referred To Procedures Contact Contact NOT REQUIRED Diagnoses Bacteremia Shellie Fraga Procedures HOME INFUSION ADULT ANTIBIOTIC MD Sunitha [address] [place] [address] Reason for Visit Reason Comments Auth/Cert Status Reason Specialty Diagnoses / Procedures Referred By Terri sanz Referred To Contact Encounter Details Date Type Department Care Team Description 07/21/2020 - Hospital Encounter [facility] Provider, Gen [facility] Procedure Encephalopathy 08/03/2020 CENTER 6CD F Mita Kumar MD [address] [place] [address] [phone] [id number] [facility] Ruth Etienne MD [address] [place] [address] [phone] [place] [address] Darin Nathan MD [address] [place] [address] [phone] Katty Lowry MD [address] [place] [address] [phone] Jarrod Mcnally MD [address] [place] [address] [phone] Melissa Ledesma MD [address] [place] [address] [phone] Allergies No Known Allergiesdocumented as of this encounter (statuses as of 08/03/2020) Medications Medication Sig Dispensed Refills Start End Status Date Date calcium-vitamin D Take 1 tablet by 90 tablet 0 Active (OSCAL 500 + mouth 1 time per 017 VITAMIN D) 500 day Take by mouth mg-200 units TABS 1 time per day. tabletIndications: Essential hypertension, Controlled type 2 diabetes mellitus with diabetic polyneuropathy, with long-term current use of insulin (HCC) Glucosamine-Chondr Take 1 capsule by 90 capsule 0 Active oit-Vit C-Mn mouth 1 time per 017 (GLUCOSAMINE-CHOND day Take by ROITIN) mouth 1 time per capsuleIndications day. : Controlled type 2 diabetes mellitus with diabetic polyneuropathy, with long-term current use of insulin (HCC) multivitamin/lutei Take 1 capsule by 0 Active n mouth 1 time per (PROSIGHT;OCUVITE- day LUTEIN) capsule UNIFINE PENTIPS USE DIRECTED 100 each 2 Active 31G X 8 MM WITH LANTUS 018 ShortIndications: Controlled type 2 diabetes mellitus with diabetic polyneuropathy, with long-term current use of insulin ([facility]) B Complex Vitamins Take by mouth 0 Active (B COMPLEX PO) Zinc (ZINC) 50 MG Take 50 mg by 0 Active CAPS mouth 1 time per day rosuvastatin Take 1 tablet (40 30 tablet 11 2 07/07/ Active (CRESTOR) 40 mg mg) by mouth 2021 tabletIndications: time per day Hyperlipidemia, unspecified hyperlipidemia type, Cerebrovascular accident (CVA), unspecified mechanism (HCC) donepezil Take 2 tablets (20 180 tablet 3 Active (ARICEPT) 10 mg mg) by mouth tabletIndications: time a day in the 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 Use with spacer. acetaminophen Take 2 tablets 0 A ctive (TYLENOL) 325 mg (650 mg) by mouth 021 tabletIndications: Every 4 hours as Primary needed for mild osteoarthritis of pain right hip calcium carbonate Take 1 tablet (500 90 tablet 0 Active (TUMS) 500 MG mg) by mouth 4 chewable times a day as tabletIndications: needed for Acid indigestion indigestion nitroglycerin Dissolve 1 tablet 0 08/08/ Active (NITROSTAT) 0.4 mg (0.4 mg) under the 22 sublingual tongue Every 5 tabletIndications: minutes as needed Coronary artery for chest pain May disease involving repeat every 5 ekuk coronary minutes for a artery of ekuk total of 3 doses. heart without angina pectoris albuterol-ipratrop Inhale 1 unit-dose 0 / Active ium (DUO-NEB) (3 mL) by 2021 2.5-0.5 mg/3 mL nebulization Every inhalation 4 hours as needed solutionIndication for bronchospasm, s: COPD with shortness of asthma (HCC) breath or wheezing umeclidinium-vilan Inhale 1 puff 3 each 4 Active terol (ANORO orally 1 time per ELLIPTA) 62.5-25 day mcg/Inh inhalerIndications : COPD with asthma (HCC) apixaban (ELIQUIS) Take 1 tablet (2.5 0 Active 2.5 MG mg) by mouth 2 tabletIndications: times a day Venous Indications: Thromboembolism Venous Thromboembolism dextrose 4-6 GM-MG Take 4 tablets (16 0 Active CHEW chewable g) by mouth as 021 tabletIndications: needed for low Controlled type 2 blood glucose diabetes mellitus with diabetic polyneuropathy, with long-term current use of insulin ([facility]) insulin aspart Inject 2-8 Units 0 Active (NOVOLOG) SQ subcutaneously 3 correction scale times a day (Adult)Indications : Controlled type 2 diabetes mellitus with diabetic polyneuropathy, with long-term current use of insulin ([facility]) insulin aspart Inject 8 Units 0 09/02/ Active (NOVOLOG) subcutaneously 2020 subcutaneous times a day with injectionIndicatio meals ns: Controlled type 2 diabetes mellitus with diabetic polyneuropathy, with long-term current use of insulin ([facility]) insulin glargine Inject 35 Units 0 09/02/ Active (LANTUS) subcutaneously 2020 subcutaneous time per day injectionIndicatio ns: Controlled type 2 diabetes mellitus with diabetic polyneuropathy, with long-term current use of insulin ([facility]) ondansetron Take 1 tablet (4 0 A ctive (ZOFRAN ODT) 4 mg mg) by mouth dispersible times a day as tabletIndications: needed for nausea Nausea or vomiting ondansetron Administer 2 mL (4 0 Active (ZOFRAN) 4 mg/2 mL mg) intravenously 021 injection 4 times a day as solutionIndication needed for nausea s: Nausea or vomiting cloNIDine Take 1 tablet (0.1 180 tablet 08/08/ Active (CATAPRES) 0.1 mg mg) by mouth 2021 tabletIndications: times a day Essential hypertension hydrALAZINE Administer 0.5 mL 0 08/08/ Active (APRESOLINE) 20 (10 mg) 2021 MG/ML intravenously SOLNIndications: every 6 hours as Essential needed for hypertension specified parameter (to keep SBP less than 150 mmHg) hydrALAZINE Take 3 tablets (75 810 tablet 08/08/ Active (APRESOLINE) 25 mg mg) by mouth 2021 tabletIndications: times a day Essential hypertension QUEtiapine Take 0.75 tablets 67.5 tablet 4 08/08/ Active (SEROQUEL) 50 mg (37.5 mg) by mouth 2021 tabletIndications: Every 24 hours Mood disorder (HCC) metoprolol Take 0.5 tablets 0 08/08/ Ac tive tartrate (12.5 mg) by mouth 2021 (LOPRESSOR) 25 mg 2 times a day tabletIndications: Coronary artery disease involving ekuk coronary artery of ekuk heart without angina pectoris amLODIPine Take 1 tablet (10 90 tablet 4 08/08/ A ctive (NORVASC) 10 mg mg) by mouth 1 2021 tabletIndications: time per day Essential hypertension glucagon 1 MG SOLR Inject 1 mg 0 Active for injection 1 mg intramuscularly as vialIndications: needed for low Controlled type 2 blood glucose diabetes mellitus with diabetic polyneuropathy, with long-term current use of insulin ([facility]) polyethylene Take 1 packet by 0 Active glycol (MIRALAX) mouth 1 time per 17 g day Dissolve in 4 packetIndications: to 8 ounces of Constipation, water, juice, unspecified soda, coffee, tea. constipation type senna-docusate Take 2 tablets by 0 Active sodium mouth 2 times a 021 (SENOKOT-S;PERICOL day as needed for GARY) 8.6-50 MG constipation tabletIndications: Constipation, unspecified constipation type bisacodyl Insert 1 30 suppository 0 Activ e (DULCOLAX) 10 mg suppository ( suppositoryIndicat mg) rectally 1 ions: time a day as Constipation, needed for unspecified constipation constipation type Unwrap before inserting. Do not swallow. docusate sodium Insert 1 enema 0 Active (THEREVAC-SB rectally 1 time a 021 MINI;ENEMEEZ MINI) day as needed for 283 MG constipation ENEMIndications: Constipation, unspecified constipation type melatonin 3 mg Take 2 tablets (6 30 tablet 0 Active tabletIndications: mg) by mouth at 021 Insomnia, bedtime as needed unspecified type (insomnia) sodium chloride Administer 10 mL 0 Active 0.9% intravenously SOLNIndications: times a day and as Bacteremia needed tamsulosin Take 1 capsule 90 capsule 0 Act kenn (FLOMAX) 0.4 mg (0.4 mg) by mouth 021 capsuleIndications every night at : Benign prostatic bedtime hyperplasia with lower urinary tract symptoms, symptom details unspecified clopidogrel Take 1 tablet (75 90 tablet 3 Active (PLAVIX) 75 mg mg) by mouth tabletIndications: time per day Coronary artery disease involving ekuk coronary artery of ekuk heart without angina pectoris dextrose 50% Administer 50 mL 0 Active SOLNIndications: intravenously as 021 Controlled type 2 needed for low diabetes mellitus blood glucose with diabetic polyneuropathy, with long-term current use of insulin ([facility]) polyvinyl Place 1 drop into 0 Ac tive alcohol-povidone both eyes 4 times (REFRESH) 1.4-0.6 a day % preservative free ophthalmic solutionIndication s: Posterior uveitis, bilateral cefTRIAXone Administer 2,000 0 2 08/04/ A ctive (ROCEPHIN) 2,000 mg intravenously 2020 mg in sodium Every 24 hours for chloride 0.9% 50 1 day mLIndications: Bacteremia acetaminophen Take 1-2 tablets 180 tablet 0 01/31/2 08/03/ Discontinued (TYLENOL) 500 mg (500-1,000 mg) by 2020 (Stop Taking tablet mouth Every 4 at Dis charge) hours as needed for moderate pain Loperamide HCl Take 1 capsule by 0 08/03/ Discontinued (IMODIUM PO) mouth 1 time per 2020 (Stop Taking day at [facility]) insulin glargine INJECT 40 UNITS 15 mL 4 2 08/03/ Discontinued (BASAGLAR) UNDER THE SKIN 2020 (Sto p Taking subcutaneous ONCE A DAY at Dis charge) injection (pen)Indications: Controlled type 2 diabetes mellitus with diabetic neuropathy, with long-term current use of insulin ([facility]) olmesartan TAKE ONE TABLET 90 tablet 3 2 08/03/ Dis continued (BENICAR) 40 mg (40 MG) BY MOUTH 2020 (Stop Taking tabletIndications: ONCE DAILY at Discharge) Essential hypertension sulfaSALAzine TAKE 1 TABLET (500 60 tablet 2 05/26/2 08/03/ Discontinued (AZULFIDINE) 500 MG) BY MOUTH 2020 (Stop Taking mg TIMES A DAY WITH at Discharge) tabletIndications: MEALS Diarrhea, unspecified type amLODIPine TAKE ONE TABLET BY 90 tablet 0 06/14/2 08/03/ Discontinued (NORVASC) 10 mg MOUTH ONE TIME 2020 (Stop Taking tabletIndications: DAILY GENERIC at Discharge) Essential NORVASC hypertension furosemide (LASIX) TAKE ONE TABLET 90 tablet 3 06/23/08/03 / Discontinued 40 mg (40 MG) BY MOUTH 2020 (St op Taking tabletIndications: ONCE DAILY at Discharge) Essential hypertension apixaban (ELIQUIS) Take 1 tablet (5 180 tablet 3 07/02// Discontinued 5 MG mg) by mouth 2020 (Stop Taking tabletIndications: times a day at Discharge) Venous Indications: Thromboembolism Venous Thromboembolism tamsulosin TAKE ONE CAPSULE 90 capsule 3 07/15/ D iscontinued (FLOMAX) 0.4 mg (0.4 MG) BY MOUTH 2020 (Stop Taking capsuleIndications ONCE DAILY GENERIC at Discharge) : Benign prostatic FLOMAX hyperplasia with weak urinary stream cloNIDine TAKE ONE TABLET BY 270 tablet 3 07/15/08/03/ Discontinued (CATAPRES) 0.1 mg MOUTH EVERY 2020 (Stop Taking tabletIndications: MORNING AND TWO at Discharge) Essential TABLETS EVERY hypertension EVENING insulin glargine 20 Units 0 07/21/ Dis continued (BASAGLAR) 2020 (Data ent ry subcutaneous error) injection (pen) documented as of this encounter (statuses as of 08/03/2020) Active Problems Problem Noted Date Encephalopathy 07/21/2020 Raised intraocular pressure of both eyes 09/18/2019 Pseudophakia - Both 08/27/2019 On apixaban therapy 07/31/2019 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 (background diabetic retinopathy) 07/18/2019 Anterior uveitis 07/18/2019 Posterior uveitis, bilateral 07/15/2019 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 The patient reported significant relief after cerumen was removed. The fadumo daniel will let us know if he has ongoing or worsening symptoms. 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 015 Scrotal hematoma 06/30/2014 Hydrocele, left 04/21/2014 Basal cell carcinoma of nose 04/11/2013 Pre-ulcerative corn or callous 10/05/2012 Edema of lower extremity 10/01/2012 S/P total knee arthroplasty 04/15/2012 COPD with asthma 07/19/2011 Chronic atrial fibrillation 07/19/2011 Screening for eye condition 08/17/2010 Hyperlipidemia associated with type 2 diabetes mellitu s 03/02/2009 Controlled type 2 diabetes mellitus with diabetic poly neuropathy, with 12/26/2004 long-term current use of insulin Peripheral autonomic neuropathy in disorders classifie d elsewhere(337.1) 12/26/2004 Essential hypertension 06/10/2004 Obesity 06/10/2004 documented as of this encounter (statuses as of 08/03/2020) Resolved Problems Problem Noted Date Resolved Date Bilateral cataracts 05/11/2014 03/23/2020 Acne rosacea 12/24/2013 07/15/2015 documented as of this encounter (statuses as of 08/03/2020) Immunizations Name Administration Dates Next Due FLU VACCINE HIGH DOSE 65YR+(Fluzone) 12/25/2019, 02/03/2019, 01/31/2018, 01/31/2017, 02/10/2015, 12/18/2013, 02/03/2013 FLU VACCINE SINGLE DOSE 01/10/2016 0.5mL(6MO+Fluzone/Flulaval/Fluarix/3YR +Afluria) Influenza Vaccine,unspecified 03/06/2011, 02/07/2010, 2007 Pfizer COVID-19 Vaccine 05/05/2020 Pneumococcal Conj PCV13 02/10/2015 Pneumococcal Polysaccharide PPSV23 01/30/2008 Td(adult)preservative free 02/06/2007 documented as of this encounter Social History Tobacco Use Types Packs/Day Years Used Date Never Smoker Smokeless Tobacco: Never Used Alcohol Use Drinks/Week oz/Week Comments Not Currently couple of times per year Sexually Active Control Partners Comments Yes Female Sex Assigned at Date Recorded Male 08/20/2019 9:08 AM CDT documented as of this encounter Last Filed Vital Signs Vital Sign Reading Time Taken Comments Blood Pressure 148/64 08/03/2020 11:20 AM CDT Pulse 54 08/03/2020 12:54 PM CDT Temperature 36.8 C (98.2 F) 08/03/2020 11:20 AM CDT Respiratory Rate 16 08/03/2020 12:54 PM CDT Oxygen Saturation 94% 08/03/2020 12:54 PM CDT Inhaled Oxygen Concentration - - Weight 146.4 kg (322 lb 12.8 oz) 08/03/2020 6:45 AM CDT Height 198.1 cm (6' 6") 07/21/2020 8:00 AM CDT Body Mass Index 37.3 07/21/2020 8:00 AM CDT documented in this encounter Functional Status Functional Status Response Date of Assessment Is the person deaf or does he/she No 2014 have serious difficulty hearing? Is this person blind or does No 06/24/2014 he/she have difficulty seeing even when wearing glasses? Do you have difficulty with Yes 12/01/2019 walking, balance, climbing stairs, or had a fall in the last 3 months? Does the patient have difficulty No 015 dressing or bathing? Because of a physical, mental, or No - drives but does most 06/24/2014 emotional condition; does this of it person have difficulty doing errands alone such as visiting a doctor's office or shopping? Cognitive Status Response Date of Assessment Because of a physical, mental, or emotional condition; No 06/24/2014 does this person have serious difficulty concentrating, remembering, or making decisions? documented as of this encounter Discharge Summaries Not on filedocumented in this encounter Discharge Instructions InstructionsThania Lara RN - 07/26/2020Heart Failure Discharge Instructions Activity: ? Be as active as possible ? Break down tasks to small activities to avoid becoming overly tired ? Talk to your doctor before lifting more than 10 pounds ? Begin to exercise slowly and increase only as tolerated; refer to your education book ? Balance activity and rest periods Nutrition: ? Follow a low sodium (salt) diet ? Choose no added salt or low sodium foods; choose fresh foods as much as possible ? Avoid adding salt to food when cooking or at the table ? Read the nutrition facts labels and avoid foods with more than 300 mg of sodium per serving Medication: ? Make a list and schedule of the medications you take ? Keep a current list of your medications with you ? Take your medications as prescribed ? Avoid NSAIDs or Non-Steroidal Anti-Inflammatory Drugs (i.e. Advil, Ibuprofen, Motrin, etc.) Self-Care: ? Weigh yourself and write it down first thing in the morning after you empty your bladder and before you eat or drink ? Check for swelling of your feet, ankles, legs, and stomach ? Do your daily exercise ? If you smoke, stop ? Keep all follow-up appointments and bring your medications and weight log with you Review the Living Well with Heart Failure booklet for more information on caring for yourself or your loved one at home. Call Your Doctor or Health Cabinet Assembler If You Have: ? Weight gain of more than 2 pounds overnight or 5 pounds in one week (or whatever weight gain you were told to report by your doctor) ? New or increased swelling of your legs or ankles, swelling or pain in your stomach ? Decrease in amount you urinate ? Increased shortness of breath ? Increased cough with yellow or green sputum (mucus) ? Increased breathing trouble at night (waking up short of breath, needing more pillows to breathe) ? Feeling much more tired than usual ? Racing or pounding heart beat ? Dizziness Go To The Nearest Emergency Room or Call 911 If You Have: ? Shortness of breath so severe that you cannot catch your breath even while resting ? [place], foamy sputum (mucus) ? New problem sleeping; you need to sit straight up to sleep or are not able to sleep due to shortness of breath ? Severe chest pain that does not resolve with rest or Nitroglycerin ? New or increased confusion or cannot think clearly ? A continuous rapid or irregular heart beat ? Fainting or feeling to dizzy to stand up documented in this encounter Medications at Time of Discharge Medication Sig Dispensed Refills Start Date End Date albuterol HFA Inhale 2 puffs orally 18 g 0 08/03/2020 (PROVENTIL,PROAIR,DOUG Every 4 hours as TOLIN) 108 (90 Base) needed for shortness MCG/ACT of breath or wheezing inhalerIndications: Shake well before COPD with asthma using. Use with (HCC) spacer. acetaminophen Take 2 tablets (650 0 08/03/2020 (TYLENOL) 325 mg mg) by mouth Every 4 tabletIndications: hours as needed for Primary mild pain osteoarthritis of right hip calcium carbonate Take 1 tablet (500 90 tablet 0 08/03/2020 (TUMS) 500 MG mg) by mouth 4 times chewable a day as needed for tabletIndications: indigestion Acid indigestion nitroglycerin Dissolve 1 tablet 0 08/03/2020 05/0 (NITROSTAT) 0.4 mg (0.4 mg) under the 2 sublingual tongue Every 5 tabletIndications: minutes as needed for Coronary artery chest pain May repeat disease involving every 5 minutes for a ekuk coronary total of 3 doses. artery of ekuk heart without angina pectoris albuterol-ipratropium Inhale 1 unit-dose (3 0 (DUO-NEB) 2.5-0.5 mL) by nebulization 2 mg/3 mL inhalation Every 4 hours as solutionIndications: needed for COPD with asthma bronchospasm, ([facility]) shortness of breath or wheezing umeclidinium-vilanter Inhale 1 puff orally 3 each 4 07/09 ol (ANORO ELLIPTA) 1 time per day 62.5-25 mcg/Inh inhalerIndications: COPD with asthma ([facility]) apixaban (ELIQUIS) Take 1 tablet (2.5 0 1 2.5 MG mg) by mouth 2 times tabletIndications: a day Indications: Venous Venous Thromboembolism Thromboembolism dextrose 4-6 GM-MG Take 4 tablets (16 g) 0 2020 CHEW chewable by mouth as needed tabletIndications: for low blood glucose Controlled type 2 diabetes mellitus with diabetic polyneuropathy, with long-term current use of insulin ([facility]) insulin aspart Inject 2-8 Units 0 08/03/2020 (NOVOLOG) SQ subcutaneously 3 correction scale times a day (Adult)Indications: Controlled type 2 diabetes mellitus with diabetic polyneuropathy, with long-term current use of insulin ([facility]) insulin aspart Inject 8 Units 0 08/03/2020 (NOVOLOG) subcutaneously 3 1 subcutaneous times a day with injectionIndications: meals Controlled type 2 diabetes mellitus with diabetic polyneuropathy, with long-term current use of insulin ([facility]) insulin glargine Inject 35 Units 0 08/03/2020 (LANTUS) subcutaneous subcutaneously 1 time 1 injectionIndications: per day Controlled type 2 diabetes mellitus with diabetic polyneuropathy, with long-term current use of insulin ([facility]) ondansetron (ZOFRAN Take 1 tablet (4 mg) 0 2020 ODT) 4 mg dispersible by mouth 4 times a tabletIndications: day as needed for Nausea nausea or vomiting ondansetron (ZOFRAN) Administer 2 mL (4 0 021 4 mg/2 mL injection mg) intravenously 4 solutionIndications: times a day as needed Nausea for nausea or vomiting cloNIDine (CATAPRES) Take 1 tablet (0.1 180 tablet 4 021 0.1 mg mg) by mouth 2 times 2 tabletIndications: a day Essential hypertension hydrALAZINE Administer 0.5 mL (10 0 08/03/2020 (APRESOLINE) 20 MG/ML mg) intravenously 2 SOLNIndications: every 6 hours as Essential needed for specified hypertension parameter (to keep SBP less than 150 mmHg) hydrALAZINE Take 3 tablets (75 810 tablet 4 08/03/202008/08 (APRESOLINE) 25 mg mg) by mouth 3 times 2 tabletIndications: a day Essential hypertension QUEtiapine (SEROQUEL) Take 0.75 tablets 67.5 tablet 4 2020 50 mg (37.5 mg) by mouth 2 tabletIndications: Every 24 hours Mood disorder ([facility]) metoprolol tartrate Take 0.5 tablets 0 08/03/2020 (LOPRESSOR) 25 mg (12.5 mg) by mouth 2 2 tabletIndications: times a day Coronary artery disease involving ekuk coronary artery of ekuk heart without angina pectoris amLODIPine (NORVASC) Take 1 tablet (10 mg) 90 tablet 4 07/09 10 mg by mouth 1 time per 2 tabletIndications: day Essential hypertension glucagon 1 MG SOLR Inject 1 mg 0 08/03/2020 for injection 1 mg intramuscularly as vialIndications: needed for low blood Controlled type 2 glucose diabetes mellitus with diabetic polyneuropathy, with long-term current use of insulin ([facility]) polyethylene glycol Take 1 packet by 0 08/03/2020 (MIRALAX) 17 g mouth 1 time per day packetIndications: Dissolve in 4 to 8 Constipation, ounces of water, unspecified juice, soda, coffee, constipation type tea. senna-docusate sodium Take 2 tablets by 0 021 (SENOKOT-S;PERICOLACE mouth 2 times a day ) 8.6-50 MG as needed for tabletIndications: constipation Constipation, unspecified constipation type bisacodyl (DULCOLAX) Insert 1 suppository 30 suppository 0 0 08/03/2020 10 mg (10 mg) rectally 1 suppositoryIndication time a day as needed s: Constipation, for constipation unspecified Unwrap before constipation type inserting. Do not swallow. docusate sodium Insert 1 enema 0 08/03/2020 (THEREVAC-SB rectally 1 time a day MINI;ENEMEEZ MINI) as needed for 283 MG constipation ENEMIndications: Constipation, unspecified constipation type melatonin 3 mg Take 2 tablets (6 mg) 30 tablet 0 08/03/2020 tabletIndications: by mouth at bedtime Insomnia, unspecified as needed (insomnia) type sodium chloride 0.9% Administer 10 mL 0 SOLNIndications: intravenously 2 times Bacteremia a day and as needed tamsulosin (FLOMAX) Take 1 capsule (0.4 90 capsule 0 021 0.4 mg mg) by mouth every capsuleIndications: night at bedtime Benign prostatic hyperplasia with lower urinary tract symptoms, symptom details unspecified clopidogrel (PLAVIX) Take 1 tablet (75 mg) 90 tablet 3 07/09 75 mg by mouth 1 time per tabletIndications: day Coronary artery disease involving ek[place] coronary artery of ek[place] heart without angina pectoris dextrose 50% Administer 50 mL 0 08/03/2020 SOLNIndications: intravenously as Controlled type 2 needed for low blood diabetes mellitus glucose with diabetic polyneuropathy, with long-term current use of insulin ([facility]) polyvinyl Place 1 drop into 0 08/03/2020 alcohol-povidone both eyes 4 times a (REFRESH) 1.4-0.6 % day preservative free ophthalmic solutionIndications: Posterior uveitis, bilateral cefTRIAXone Administer 2,000 mg 0 08/03/202007/09 (ROCEPHIN) 2,000 mg intravenously Every 1 in sodium chloride 24 hours for 1 day 0.9% 50 mLIndications: Bacteremia potassium chloride TAKE ONE TABLET (20 90 tablet 3 07/16/19 21 (KLOR-CON M20) 20 MEQ MEQ) BY MOUTH ONCE CR tabletIndications: DAILY Essential hypertension rosuvastatin Take 1 tablet (40 mg) 30 tablet 11 07/02/2020 0 (CRESTOR) 40 mg by mouth 1 time per 2 tabletIndications: day Hyperlipidemia, unspecified hyperlipidemia type, Cerebrovascular accident (CVA), unspecified mechanism (HCC) donepezil (ARICEPT) Take 2 tablets (20 180 tablet 3 07/03/19 21 10 mg mg) by mouth 1 time a tabletIndications: day in the morning Vascular dementia without behavioral disturbance (HCC) mirtazapine (REMERON) Take 1 tablet (15 mg) 90 tablet 3 15 mg by mouth every night tabletIndications: at bedtime Primary insomnia Zinc (ZINC) 50 MG Take 50 mg by mouth 1 0 CAPS time per day B Complex Vitamins (B Take by mouth 0 COMPLEX PO) UNIFINE PENTIPS 31G X USE DIRECTED WITH 100 each 2 09/2017 8 MM LANTUS ShortIndications: Controlled type 2 diabetes mellitus with diabetic polyneuropathy, with long-term current use of insulin (HCC) multivitamin/lutein Take 1 capsule by 0 (PROSIGHT;OCUVITE-LUT mouth 1 time per day EIN) capsule calcium-vitamin D Take 1 tablet by 90 tablet 0 01/31/2017 (OSCAL 500 + VITAMIN mouth 1 time per day D) 500 mg-200 units Take by mouth 1 time TABS per day. tabletIndications: Essential hypertension, Controlled type 2 diabetes mellitus with diabetic polyneuropathy, with long-term current use of insulin (HCC) Glucosamine-Chondroit Take 1 capsule by 90 capsule 0 017 -Vit C-Mn mouth 1 time per day (GLUCOSAMINE-CHONDROI Take by mouth 1 time TIN) per day. capsuleIndications: Controlled type 2 diabetes mellitus with diabetic polyneuropathy, with long-term current use of insulin (HCC) documented as of this encounter Progress Notes Born, Jarrod, MD - 08/02/2020 9:00 PM CDT Patient Name: Stephen Haddad Admit Date: 07/21/2020 Days: 12 CSN: [id number] PCP: Mustapha Jones MD Assessment and Plan Brief history: 79-year-old male with past medical history of diabetes mellitus, hypertension, atrial fibrillation on anticoagulation presented to hospital with generalized weakness and fall. He was found to have mild subarachnoid hemorrhage. Neurosurgery okay to continue anticoagulation. He also had NSTEMI. Cardiology consulted and they recommend no testing at this is likely related with demand. Blood culture at outside facility grew alphahemolytic streptococci. Blood culture at our facility negative. MRSA negative. Urine culture shows no growth. SHAMEKA which revealed no evidence of vegetation. Infectious disease following and patient is on ceftriaxone. During hospital stay patient had frequent PVCs. Cardiology reconsulted and patient was started on beta-lydia and plan for PET stress test. Subsequentlyhe had chest pain and PET scan cancelled and underwent left heart cath and stent placed in RCA. Assessment and plan: 1.Gram-positive bacteremia secondary to strep agalactiae group B. Blood culture positive at outside facility. Repeat blood culture at our facility negative. SHAMEKA negative for vegetation. Continue ceftriaxone with last dose planned for 08/04/20. He has mild leukocytosis but afebrile. Urine culture negative. He is on room air and no diarrhea. 2. Acute hypoxic respiratory failure secondary to acute CHF and possible pneumonia. Currently on room air. Recent echo revealed normal LV function. There is dilated IVC. Repeat chest xray revealed concern for increasing opacity on left side. Clinically he is doing ok with no cough and SOB. Will monitor for now. 3. Concern for HCAP. See above. Procalcitonin mildly elevated. Continue ceftriaxone through 08/04/20 4.NSTEMI status post left heart cath S/P PCI in RCA. Continue DAPT. Given he is on Eliquis so he maynot need triple therapy and on discharge will DC ASA. 5.Acute encephalopathy and small SAH. Initial CT shows trace subarachnoid hemorrhage. Follow-up CT shows stable hemorrhage. Neurosurgery consulted and they recommend no need for antiseizure medication and resume Eliquis. Per family he has poor short term memory. He doesn't have focal deficit. He is alert and orientated.Continue fall risk precaution. Continue with bed alarm 6.Acute on CKD. Baseline Cr around 1.3-1.6. Cr today is 2.05 which is stable. This may be related with contrast he received while had [facility]. Will hold on Lasix for now given he is on room air. 7.Hypertension. BP reviewed. Continue amlodipine, clonidine, beta lydia, and hydralazine 8.Diabetes mellitus. BG reviewed. Continue Lantus 35 units daily and NovoLog 8 units TID and insulindose correction scale. 9.Atrial fibrillation. Tele revealed AF.Continue beta-lydia and Eliquis dose adjusted based on kidney function. 10.Episode of epistaxis. No further episode of nose bleeding which resolved on its own. Continue nasal spray. 11.BPH. Continue Flomax. Instructed patient to call for help if need to urinate. Discussed with charge nurse as well as nurse. 12.History of mild cognitive impairment. Continue donepezil 13.Mood disorder. Continue Remeron and seroquel 14.Physical deconditioning. Patient encouraged to walk with therapy. Therapy following and he will need placement. Please refer to CM note for disposition planning. 15.KAREY. Continue CPAP/BiPAP 16.Hyperlipidemia. Continue Crestor 17.DVT prophylaxis. Eliquis adjusted based on CKD Plan of care was discussed with patient. Patient verbalized understanding of the plan. All questions answered. CODE STATUS: Full Code Diet: DVT Prophylaxis: Eliquis renally adjusted Disposition: Planning for transition to [place] [facility] in [place], [place]. PT recommends low intensity setting. COVID screening is pending. Interval History and clinical decision making Today is my first day providing care for this patient. Per patient's Padmini she reports that Stephen has shown great improvement as of late and is nearing closer to his baseline functional status. Padmini is in agreement with transitioning to swing bed in the near future. No acute overnight events to report. Telemetry shows atrial fibrillation. Review of Systems Constitutional: Denies fever or chills. Positive for fatigue HEENT: Denies complaints Cardio: Denies chest pain, palpitations, dizziness/lightheadedness. Positive for leg swelling Pulm: Denies SOB, cough, or inspiratory pain. GI: Denies diarrhea/constipation : Denies complaints Extremities: Positive for arthralgias and gait problem Physical Exam Blood pressure 138/55, pulse 54, temperature 98 F (36.7 C), resp. rate 16, height 1.981 m (6' 6"), weight (!) 147 kg (324 lb 1.6 oz), SpO2 97 %. General: No acute distress, appearing comfortable Head: Normocephalic/Atraumatic Eyes: PERRLA, no scleral icterus Nose: Nasal mucosa normal, no drainage Throat: Supple, trachea midline Respiratory: Clear to auscultation all lobes. No rhonchi, rales, or rubs noted Cardiovascular: Irregularly irregular rhythm Abdomen: BS present, soft, no organomegaly Musculoskeletal: Normal range of motion. Lower extremity edema noted. Neuro: awake, moving extremities grossly, speech normal. He is alert and oriented to person, place,and time. Skin: Warm and dry Lab Results Component Value Date WBC 13.4 (H) 08/02/2020 NUCRBC 0 08/02/2020 RBC 3.59 (L) 08/02/2020 HEMOGLOBIN 10.9 (L) 08/02/2020 HEMATOCRIT 33.8 (L) 08/02/2020 MCV 94.2 08/02/2020 MCH 30.4 08/02/2020 MCHC 32.2 08/02/2020 PLTCOUNT 278 08/02/2020 NEUTROPCT 83.0 08/02/2020 BANDPCT 2.0 01/18/2016 LYMPHSPCT 7.3 08/02/2020 MONOSPCT 6.4 08/02/2020 EOSPCT 2.2 08/02/2020 BASOPHILPCT 0.4 08/02/2020 Lab Results Component Value Date GLUCOSE 203 (H) 08/02/2020 BUN 86 (H) 08/02/2020 CREATSERUM 2.05 (H) 08/02/2020 BCRATIO 42.0 (H) 08/02/2020 NA 139 08/02/2020 POTASSIUM 3.7 08/02/2020 CL 101 08/02/2020 CO2 28 08/02/2020 CA 8.0 (L) 08/02/2020 EGFR 31 (L) 08/02/2020 EGFRAF 38 (L) 08/02/2020 Labs were reviewed. Pertinent positives and negatives are reflected in the assessment and plan Total time spent in care of this patient 35 minutes with greater than 50 percent of the time spent in counseling and coordination of care as described above alongside reviewing chart, discussing with nursing, phone calls, reviewing labs, and imaging. Jarrod Mcnally MD Hospitalist Department of Internal Medicine Pager #[phone] [place], [place] Darin Cole MD - 08/01/2020 11:30 AM CDT DAILY PROGRESS NOTE Stephen Haddad is a 79yr old male admitted on 07/21/2020 7:34 AM. Impression / Plan Summary.79-year-old male with past medical history of diabetes mellitus, hypertension, atrial fibrillation on anticoagulation presented to hospital with generalized weakness and fall. He was found to have mild subarachnoid hemorrhage. Neurosurgery okay to continue anticoagulation. He was also in [facility]. Cardiology consulted and they recommend no testing at this is likely related with demand. Blood culture at outside facility grew alphahemolytic streptococci. Blood culture at our facility negative. MRSA negative. Urine culture shows no growth. SHAMEKA which revealed no evidence of vegetation. Inf ectious disease following and patient is on ceftriaxone. During hospital stay patient had frequent PVCs. Cardiology reconsulted and patient was started on beta-lydia and plan for PET stress test. Subsequently he had chest pain and PET scan cancelled and underwent left heart cath and stent placed in RCA. Assessment and plan 1.Gram-positive bacteremia secondary to strep agalactiae group B. Blood culture positive at outside facility. Repeat blood culture at our facility negative. SHAMEKA negative for vegetation. Continue ceftriaxone with last dose 08/04. He has mild leukocytosis but afebrile. Urine culture negative. He is on room air and no diarrhea. 2.Acute hypoxic respiratory failure secondary to acute CHF and possible pneumonia. Currently on roomair. Recent echo revealed normal LV function. There is dilated IVC. Repeat chest xray revealed concern for increasing opacity on left side. Clinically he is doing ok with no cough and SOB. Will monitorfor now. 3.Concern for HCAP. See above. Procalcitonin mildly elevated. Continue ceftriaxone 4.NSTEMI status post left heart cath S/P PCI in RCA. Continue DAPT. Given he is on Eliquis so he maynot need triple therapy and on discharge will DC ASA. 5.Acute encephalopathy and small SAH. Initial CT shows trace subarachnoid hemorrhage. Follow-up CT shows stable hemorrhage. Neurosurgery consulted and they recommend no need for antiseizure medication and resume Eliquis. Per family he has poor short term memory. He doesn't have focal deficit. He is alert and orientated.Continue fall risk precaution. Discussed with charge and bed side nurse to place bed alarm. 6.Acute on CKD. Baseline Cr around 1.3-1.6. Cr today is 2.02 which is improving. This may be relatedwith contrast he received while had [facility]. Will hold on Lasix for now given he is on room air. 7.Hypertension. BP reviewed. Continue amlodipine, clonidine, beta lydia, and hydralazine 8.Diabetes mellitus. BG reviewed. Continue Lantus 35 units daily and NovoLog 8 units TID and insulindose correction scale. 9.Atrial fibrillation. Tele revealed AF.Continue beta-lydia and Eliquis adjusted based on kidney function. 10.Episode of epistaxis. No further episode of nose bleeding which resolved on its own. Continue nasal spray. 11.BPH. Continue Flomax. Instructed patient to call for help if need to urinate. Discussed with charge nurse as well as nurse. 12.History of mild cognitive impairment. Continue donepezil 13.Mood disorder. Continue Remeron and seroquel 14.Physical deconditioning. Patient encouraged to walk with therapy. Therapy following and he will need placement. Please refer to CM note for disposition plan. 15.KAREY. Continue CPAP 16.Hyperlipidemia. Continue Crestor 17.DVT prophylaxis. Eliquis adjusted based on CKD 18.CODE STATUS. Full Code Family not available at bed side. DW son Oli over the phone in greater details and explained about plan of care. He verbalized and agree with plan. Interval History HPI Telemetry revealed AF 50s No fever overnight No further nose bleeding. Hb is unchanged He is on room air and denies cough and SOB. No diarrhea or urinary symptoms Review of Systems Review of Systems Constitutional: Positive for fatigue. Negative for chills and fever. HENT: Negative for nosebleeds. Respiratory: Negative for cough and shortness of breath. Cardiovascular: Positive for leg swelling. Negative for chest pain. Gastrointestinal: Negative for abdominal distention, abdominal pain, nausea and vomiting. Genitourinary: Negative for flank pain and frequency. Musculoskeletal: Positive for arthralgias and gait problem. Skin: Positive for color change. Neurological: Negative for dizziness, light-headedness and headaches. Psychiatric/Behavioral: Negative for agitation and behavioral problems. Physical Exam Vital Signs: Temp: 98.2 F (36.8 C) | BP: 155/75 | Pulse: 58 | Resp: 18 | Pain Ratin (out of 10) | Weight: (!) 144 kg (317 lb 8 oz) | O2 Device: Room Air O2 Flow Rate (L/min): 0 l/min | SpO2: 98 % Maximum Temperatures (last 24 hours) Temperature Maximum Max Temp 98.4 F (36.9 C) Intake and Output: 07/31 0700 - 08/01 0659 In: 700 [Oral:700] Out: - Physical Exam Constitutional: General: He is not in acute distress. HENT: Head: Normocephalic and atraumatic. Nose: No congestion or rhinorrhea. Mouth/Throat: Pharynx: No oropharyngeal exudate or posterior oropharyngeal erythema. Eyes: General: Right eye: No discharge. Left eye: No discharge. Cardiovascular: Rate and Rhythm: Normal rate. Comments: Irregular rhythm Pulmonary: Effort: Pulmonary effort is normal. Breath sounds: Normal breath sounds. Abdominal: General: Abdomen is flat. Bowel sounds are normal. There is no distension. Palpations: Abdomen is soft. Tenderness: There is no abdominal tenderness. Musculoskeletal: Normal range of motion. General: Swelling present. Skin: General: Skin is warm and dry. Neurological: Mental Status: He is alert and oriented to person, place, and time. Labs Labs (Last day) 08/01/20 0932 - 08/01/20 0932 CBC 08/01/20 0932 CBC WBC 4.0-11.0 (K/uL) 16.1 RBC 4.40-5.80 (M/uL) 4.03 Hemoglobin 13.5-17.5 (g/dL) 12.4 Hematocrit 40.0-50.0 (%) 37.8 MCV 80.0-98.0 (fL) 93.8 MCH 25.5-34.0 (pg) 30.8 MCHC 31.5-36.5 (g/dL) 32.8 RDW-CV 11.5-15.5 (%) 13.2 RDW-SD 35.5-50.0 (fl) 45.5 Platelet Count 140-400 (K/uL) 306 MPV 8.5-12.0 (fL) 9.9 08/01/20 0932 - 08/01/20 0932 CHEMISTRY 08/01/20 0932 08/01/20 0932 CHEMISTRY Glucose 70-100 (mg/dL) 236 Sodium 135-145 (meq/L) 139 Potassium 3.5-5.3 (meq/L) 3.3 Chloride 99-110 (meq/L) 99 CO2 20-29 (meq/L) 28 Anion Gap with K 6-20 (meq/L) 15 BUN 6-22 (mg/dL) 77 Creatinine 0.80-1.30 (mg/dL) 2.02 BUN/Creatinine Ratio 10.0-25.0 38.1 Calcium 8.5-10.5 (mg/dL) 8.0 Magnesium 1.8-2.4 (mg/dL) 2.7 eGFR >=60 (mL/min/1.73m2) 39 eGFR Non- >=60 (mL/min/1.73m2) 32 08/01/20 0932 - 08/01/20 0932 DIFFERENTIAL 08/01/20 0932 DIFFERENTIAL Seg Neut Absolute 1.8-8.0 (K/uL) 14.0 Lymphocytes Absolute 0.8-4.1 (K/uL) 0.8 Monocytes Absolute 0.0-1.0 (K/uL) 0.8 Eosinophils Absolute 0.0-0.7 (K/uL) 0.3 Basophil Absolute 0.0-0.2 (K/uL) 0.1 Immature Granulocyte Absolute 0.00-0.06 (K/uL) 0.18 Neutrophils Percent (%) 87.2 Neutrophils Abs. (Segs and Bands) (/uL) 14,000 Lymphocytes Percent (%) 4.7 Monocytes Percent (%) 5.0 Immature Granulocyte Percent (%) 1.1 Eosinophils Percent (%) 1.6 Basophil Percent (%) 0.4 Nucleated RBC (/100 WBC's) 0 08/01/20 0651 - 07/31/20 1153 GLUCOSE POINT OF CARE 08/01/20 0651 07/31/20 2058 07/31/20 2039 07/31/20 1706 07/31/20 1153 GLUCOSE POINT OF CARE Glucose POC 70-99 (mg/dL) 169 83 67 120 157 08/01/20 0932 - 08/01/20 0932 OTHER 08/01/20 0932 OTHER Age (Years) 79 Medical Decision making Medical Decision Making Darin Cole MD - 07/31/2020 12:45 PM CDT DAILY PROGRESS NOTE Stephen Haddad is a 79yr old male admitted on 07/21/2020 7:34 AM. Impression / Plan Summary.79-year-old male with past medical history of diabetes mellitus, hypertension, atrial fibrillation on anticoagulation presented to hospital with generalized weakness and fall. He was found to have mild subarachnoid hemorrhage. Neurosurgery okay to continue anticoagulation. He was also in [facility]. Cardiology consulted and they recommend no testing at this is likely related with demand. Blood culture at outside facility grew alphahemolytic streptococci. Blood culture at our facility negative. MRSA negative. Urine culture shows no growth. SHAMEKA which revealed no evidence of vegetation. Inf ectious disease following and patient is on ceftriaxone. During hospital stay patient had frequent PVCs. Cardiology reconsulted and patient was started on beta-lydia and plan for PET stress test. Subsequently he had chest pain and PET scan cancelled and underwent left heart cath and stent placed in RCA. Assessment and plan 1.Gram-positive bacteremia secondary to strep agalactiae group B. Blood culture positive at outside facility. Repeat blood culture at our facility negative. SHAMEKA negative for vegetation. Continue ceftriaxone with last dose 08/04. 2.Acute hypoxic respiratory failure secondary to acute CHF and possible pneumonia. Currently on roomair and saturating around 97%. Recent echo revealed normal LV function. There is dilated IVC. Repeatchest xray revealed concern for increasing opacity on left side. He is on ceftriaxone. Procalcitoninmildly elevated. He denies cough and SOB. Lasix on hold due to worsening kidney function. 3.Concern for HCAP. See above. Procalcitonin mildly elevated. Continue ceftriaxone 4.NSTEMI status post left heart cath S/P PCI in RCA. Continue DAPT. Given he is on Eliquis so he maynot need triple therapy and on discharge will DC ASA. 5.Acute encephalopathy and small SAH. Initial CT shows trace subarachnoid hemorrhage. Follow-up CT shows stable hemorrhage. Neurosurgery consulted and they recommend no need for antiseizure medication and resume Eliquis. Per family he has poor short term memory. He doesn't have focal deficit. He is alert and orientated this am. Continue fall risk precaution. 6.Acute on CKD. Baseline Cr around 1.3-1.6. Cr today is 2.04 which is improving. This may be relatedwith contrast he received while had [facility]. Will hold on Lasix for now and monitor creatinine. 7.Hypertension. BP reviewed. Continue amlodipine, clonidine, beta lydia, and hydralazine 8.Diabetes mellitus. He had episode of low BG. At this time will decrease Lantus 35 units daily and NovoLog 10 units TID and insulin dose correction scale. 9.Atrial fibrillation. Tele revealed AF.Continue beta-lydia and Eliquis 10.Episode of epistaxis. He had nose bleeding which resolved on its own. Discussed with patient, family and nurse at bed side to monitor. Will place on nasal spray. 11.BPH. Continue Flomax and cotton removed. Instructed patient to call for help if need to urinate. Discuss with nurse to use urinal. 12.History of mild cognitive impairment. Continue donepezil 13.Mood disorder. Continue Remeron and seroquel 14.Physical deconditioning. Patient encouraged to walk with therapy. Therapy following and he will need placement 15.KAREY. Continue CPAP 16.Hyperlipidemia. Continue Crestor 17.DVT prophylaxis. Eliquis 18.CODE STATUS. Full Code DW family and patient at bed side extensively. Nurse was available during the conversation. Also discussed with charge nurse. Interval History HPI He was found down the chair but no head trauma or fall. Family was upset. Discussed with charge nurse and nurse please change the recliner chair and place bed alarm with it. He is not agitated Informed the patient please call for help if needed but he has memory issue and he forgets. He is otherwise alert and orientated. He is moving extremities spontaneously. He had episode of epistaxis which resolved on its own. Per family he does get epistaxis episode on and off Hb is close to baseline Cr is improving He was eating breakfast on my evaluation without nausea and vomiting Tele revealed AF with rate average around 50-60. He has episode of low BG which improved afterwards. Review of Systems Review of Systems Constitutional: Positive for fatigue. Negative for chills and fever. HENT: Positive for nosebleeds. Respiratory: Negative for cough and shortness of breath. Cardiovascular: Negative for chest pain. Gastrointestinal: Negative for abdominal distention, abdominal pain, nausea and vomiting. Genitourinary: Negative for flank pain and frequency. Musculoskeletal: Positive for arthralgias and gait problem. Skin: Positive for color change. Neurological: Negative for dizziness, light-headedness and headaches. Psychiatric/Behavioral: Negative for agitation and behavioral problems. Physical Exam Vital Signs: Temp: 98.4 F (36.9 C) | BP: 130/75 | Pulse: 54 | Resp: 18 | Pain Ratin (out of 10) | Weight: (!) 143 kg (315 lb 3.2 oz) | O2 Device: Room Air O2 Flow Rate (L/min): 0 l/min | SpO2: 98 % Maximum Temperatures (last 24 hours) Temperature Maximum Max Temp 98.4 F (36.9 C) Intake and Output: 07/30 0700 - 07/31 0659 In: 814 [Oral:520] Out: 140 [Urine:140] Physical Exam Constitutional: General: He is not in acute distress. HENT: Head: Normocephalic and atraumatic. Nose: No congestion or rhinorrhea. Comments: Blood around the nose Mouth/Throat: Pharynx: No oropharyngeal exudate or posterior oropharyngeal erythema. Eyes: General: Right eye: No discharge. Left eye: No discharge. Cardiovascular: Rate and Rhythm: Normal rate. Comments: Irregular rhythm Pulmonary: Effort: Pulmonary effort is normal. Breath sounds: Normal breath sounds. Abdominal: General: Abdomen is flat. Bowel sounds are normal. There is no distension. Palpations: Abdomen is soft. Tenderness: There is no abdominal tenderness. Musculoskeletal: Normal range of motion. Skin: General: Skin is warm and dry. Neurological: Mental Status: He is alert and oriented to person, place, and time. Labs Labs (Last day) 07/31/20 0551 - 07/31/20 0551 CBC 07/31/20 0551 CBC WBC 4.0-11.0 (K/uL) 10.9 RBC 4.40-5.80 (M/uL) 4.13 Hemoglobin 13.5-17.5 (g/dL) 12.4 Hematocrit 40.0-50.0 (%) 38.2 MCV 80.0-98.0 (fL) 92.5 MCH 25.5-34.0 (pg) 30.0 MCHC 31.5-36.5 (g/dL) 32.5 RDW-CV 11.5-15.5 (%) 13.1 RDW-SD 35.5-50.0 (fl) 44.4 Platelet Count 140-400 (K/uL) 317 MPV 8.5-12.0 (fL) 10.1 07/31/20550 - 07/31/20 0551 CHEMISTRY 07/31/20 0551 07/31/20 0551 CHEMISTRY Glucose 70-100 (mg/dL) 56 Sodium 135-145 (meq/L) 140 Potassium 3.5-5.3 (meq/L) 3.7 Chloride 99-110 (meq/L) 100 CO2 20-29 (meq/L) 29 Anion Gap with K 6-20 (meq/L) 15 BUN 6-22 (mg/dL) 79 Creatinine 0.80-1.30 (mg/dL) 2.04 BUN/Creatinine Ratio 10.0-25.0 38.7 Calcium 8.5-10.5 (mg/dL) 8.0 Magnesium 1.8-2.4 (mg/dL) 2.8 eGFR >=60 (mL/min/1.73m2) 38 eGFR Non- >=60 (mL/min/1.73m2) 31 07/31/20 0551 - 07/31/20 0551 DIFFERENTIAL 07/31/20 0551 DIFFERENTIAL Seg Neut Absolute 1.8-8.0 (K/uL) 8.2 Lymphocytes Absolute 0.8-4.1 (K/uL) 1.2 Monocytes Absolute 0.0-1.0 (K/uL) 1.0 Eosinophils Absolute 0.0-0.7 (K/uL) 0.3 Basophil Absolute 0.0-0.2 (K/uL) 0.1 Immature Granulocyte Absolute 0.00-0.06 (K/uL) 0.13 Neutrophils Percent (%) 75.3 Neutrophils Abs. (Segs and Bands) (/uL) 8,200 Lymphocytes Percent (%) 11.3 Monocytes Percent (%) 8.8 Immature Granulocyte Percent (%) 1.2 Eosinophils Percent (%) 2.8 Basophil Percent (%) 0.6 Nucleated RBC (/100 WBC's) 0 07/31/20 1153 - 07/31/20 0551 GLUCOSE POINT OF CARE 07/31/20 1153 07/31/20 0931 07/31/20 0617 07/31/20 0553 07/31/20 0551 GLUCOSE POINT OF CARE Glucose POC 70-99 (mg/dL) 157 107 134 55 53 07/30/202021 - 07/30/20 1659 GLUCOSE POINT OF CARE 07/30/20202107/30/20 1659 GLUCOSE POINT OF CARE Glucose POC 70-99 (mg/dL) 128 130 07/31/20 0551 - 07/31/20 0551 OTHER 07/31/20 0551 OTHER Age (Years) 79 Medical Decision making Medical Decision Making arin Nathan MD - 07/30/2020 2:55 PM CDT DAILY PROGRESS NOTE Stephen Haddad is a 79yr old male admitted on 07/21/2020 7:34 AM. Impression / Plan Summary.79-year-old male with past medical history of diabetes mellitus, hypertension, atrial fibrillation on anticoagulation presented to hospital with generalized weakness and fall. He was found to have mild subarachnoid hemorrhage. Neurosurgery okay to continue anticoagulation. He was also in [facility]. Cardiology consulted and they recommend no testing at this is likely related with demand. Blood culture at outside facility grew alphahemolytic streptococci. Blood culture at our facility negative. MRSA negative. Urine culture shows no growth. SHAMEKA which revealed no evidence of vegetation. Inf ectious disease following and patient is on ceftriaxone. During hospital stay patient had frequent PVCs. Cardiology reconsulted and patient was started on beta-lydia and plan for PET stress test. Subsequently he had chest pain and PET scan cancelled and underwent left heart cath and stent placed in RCA. Assessment and plan 1.Gram-positive bacteremia secondary to strep agalactiae group B. Blood culture positive at outside facility. Repeat blood culture at our facility negative. SHAMEKA negative for vegetation. Continue ceftriaxone with last dose 08/04. 2.Acute hypoxic respiratory failure secondary to acute CHF and possible pneumonia. Recent echo revealed normal LV function. There is dilated IVC. Repeat chest xray revealed concern for increasing opacity on left side. He is on ceftriaxone. Procalcitonin mildly elevated. Lasix on hold due to worsening k idney function. 3.Concern for health care associated pneumonia. See above. Procalcitonin mildly elevated. Continue ceftriaxone 4.NSTEMI status post left heart cath S/P PCI in RCA. Continue DAPT. Given he is on Eliquis so he maynot need triple therapy and on discharge will DC ASA. 5.Acute encephalopathy and small SAH. Initial CT shows trace subarachnoid hemorrhage. Follow-up CT shows stable hemorrhage. Neurosurgery consulted and they recommend no need for antiseizure medicationand resume Eliquis. He is alert and orientated. Per family he has poor short term memory. 6.Acute on CKD. Baseline Cr around 1.3-1.6. Cr today is 2.10. This may be related with contrast he received. Will hold on Lasix for now and continue gentle hydration. 7.Hypertension. BP reviewed. Continue amlodipine, clonidine, beta lydia, and hydralazine 8.Diabetes mellitus. BG reviewed and under target. Continue Lantus 40 units daily and NovoLog 12 units TID and insulin dose correctional scale. 9.Atrial fibrillation. Tele revealed AF. Currently rate under control. Continue beta-lydia and Eliquis 10.BPH. Continue Flomax and cotton removed. Instructed patient to call for help if need to urinate. 11.History of mild cognitive impairment. Continue donepezil 12.Mood disorder. Continue Remeron and seroquel 13.Physical deconditioning. Patient encouraged to walk with therapy. Therapy following and he will need placement 14.CODE STATUS. Full Code 15.KAREY. Continue CPAP 16.Hyperlipidemia. Continue Crestor 17.DVT prophylaxis. Eliquis Plan of care discussed with family at bedside and discussed with assigned nurse. Discuss with nurse please make sure patient receive breakfast at appropriate time around 8:30-9 am. Interval History HPI He is moving extremities spontaneously He is alert and orientated He has poor memory per family CXR revealed improvement in congestion but concern for infiltrate over the left. He is on Antibioticfor gram +ve bacteremia No fever overnight Family is concerned about that breakfast was not given on time Review of Systems Review of Systems Constitutional: Positive for fatigue. Negative for chills and fever. Respiratory: Negative for cough and shortness of breath. Cardiovascular: Negative for chest pain. Gastrointestinal: Negative for abdominal distention and abdominal pain. Genitourinary: Negative for flank pain and frequency. Musculoskeletal: Positive for arthralgias and gait problem. Skin: Positive for color change. Neurological: Negative for dizziness, light-headedness and headaches. Psychiatric/Behavioral: Negative for agitation and behavioral problems. Physical Exam Vital Signs: Temp: 97.3 F (36.3 C) | BP: 138/61 | Pulse: 61 | Resp: 16 | Pain Ratin (out of 10) | Weight: (!) 142.4 kg (314 lb) | O2 Device: NC - no humidity O2 Flow Rate (L/min): 2 l/min | SpO2: 98 % Maximum Temperatures (last 24 hours) Temperature Maximum Max Temp 98.9 F (37.2 C) Intake and Output: 07/29 0700 - 07/30 0659 In: 840 [Oral:840] Out: 500 [Urine:500] Physical Exam Constitutional: General: He is not in acute distress. Appearance: He is not ill-appearing. HENT: Head: Normocephalic and atraumatic. Mouth/Throat: Pharynx: No oropharyngeal exudate or posterior oropharyngeal erythema. Cardiovascular: Rate and Rhythm: Normal rate. Comments: Irregular rhythm Pulmonary: Effort: Pulmonary effort is normal. Breath sounds: Normal breath sounds. Abdominal: General: Abdomen is flat. Bowel sounds are normal. There is no distension. Palpations: Abdomen is soft. Tenderness: There is no abdominal tenderness. Musculoskeletal: General: No tenderness. Skin: General: Skin is warm and dry. Neurological: Mental Status: He is oriented to person, place, and time. Labs Labs (Last day) 07/30/20 0815 - 07/30/20 0815 CBC 07/30/20 0815 CBC WBC 4.0-11.0 (K/uL) 11.0 RBC 4.40-5.80 (M/uL) 4.16 Hemoglobin 13.5-17.5 (g/dL) 12.7 Hematocrit 40.0-50.0 (%) 38.0 MCV 80.0-98.0 (fL) 91.3 MCH 25.5-34.0 (pg) 30.5 MCHC 31.5-36.5 (g/dL) 33.4 RDW-CV 11.5-15.5 (%) 13.1 RDW-SD 35.5-50.0 (fl) 43.8 Platelet Count 140-400 (K/uL) 298 MPV 8.5-12.0 (fL) 10.0 07/30/20 0815 - 07/30/20 08 CHEMISTRY 07/30/2081407/30/20814 CHEMISTRY Glucose 70-100 (mg/dL) 78 Sodium 135-145 (meq/L) 138 Potassium 3.5-5.3 (meq/L) 3.4 Chloride 99-110 (meq/L) 99 CO2 20-29 (meq/L) 30 Anion Gap with K 6-20 (meq/L) 12 BUN 6-22 (mg/dL) 80 Creatinine 0.80-1.30 (mg/dL) 2.10 BUN/Creatinine Ratio 10.0-25.0 38.1 Calcium 8.5-10.5 (mg/dL) 8.1 Magnesium 1.8-2.4 (mg/dL) 2.6 eGFR >=60 (mL/min/1.73m2) 37 eGFR Non- >=60 (mL/min/1.73m2) 30 07/30/20 08 - 07/30/20814 DIFFERENTIAL 07/30/20814 DIFFERENTIAL Seg Neut Absolute 1.8-8.0 (K/uL) 8.2 Lymphocytes Absolute 0.8-4.1 (K/uL) 1.2 Monocytes Absolute 0.0-1.0 (K/uL) 1.0 Eosinophils Absolute 0.0-0.7 (K/uL) 0.4 Basophil Absolute 0.0-0.2 (K/uL) 0.1 Immature Granulocyte Absolute 0.00-0.06 (K/uL) 0.20 Neutrophils Percent (%) 74.3 Neutrophils Abs. (Segs and Bands) (/uL) 8,200 Lymphocytes Percent (%) 10.4 Monocytes Percent (%) 9.4 Immature Granulocyte Percent (%) 1.8 Eosinophils Percent (%) 3.3 Basophil Percent (%) 0.8 Nucleated RBC (/100 WBC's) 0 07/30/20 1118 - 07/29/20 1722 GLUCOSE POINT OF CARE 07/30/20 1118 07/30/20 1054 07/30/20 0529 07/29/20 2121 07/29/20 1722 GLUCOSE POINT OF CARE Glucose POC 70-99 (mg/dL) 185 124 78 151 208 07/30/20 0815 - 07/30/20 0815 OTHER 07/30/20 0815 OTHER Age (Years) 79 Medical Decision making Medical Decision Making Darin Cole MD - 07/29/2020 3:07 PM CDT DAILY PROGRESS NOTE Stephen Haddad is a 79yr old male admitted on 07/21/2020 7:34 AM. Impression / Plan Summary.79-year-old male with past medical history of diabetes mellitus, hypertension, atrial fibrillation on anticoagulation presented to hospital with generalized weakness and fall. He was found to have mild subarachnoid hemorrhage. Neurosurgery okay to continue anticoagulation. He was also in non- [facility] segment [place]. Cardiology consulted and they recommend no testing at this is likely related with demand. Blood culture at outside facility grew alphahemolytic streptococci. Blood culture at our facility negative. MRSA negative. Urine culture shows no growth. SHAMEKA which revealed no evidence of vegetation. Infectious disease following and patient is on ceftriaxone. During hospital stay patient had frequent PVCs. Cardiology reconsulted and patient was started on beta-lydia and plan for PET stress test. Subsequently he had chest pain and PET scan cancelled and underwent left heart cath and stent placed in RCA. Assessment and plan 1.Gram-positive bacteremia secondary to strep agalactiae group B. Blood culture positive at outside facility. Repeat blood culture at our facility negative. SHAMEKA negative for vegetation. Continue ceftriaxone with last dose 08/04. 2.Acute hypoxic respiratory failure secondary to acute CHF and possible pneumonia. Recent echo revealed normal LV function. There is dilated IVC. Repeat chest xray revealed concern for increasing opacity on left side. He is on oxygen and there is mild leukocytosis. Will check CRP and Procalcitonin. If elevated will consider antibiotic. 3.Concern for health care associated pneumonia. See above. 4.NSTEMI status post left heart cath S/P PCI in RCA. Continue DAPT. Given he is on Eliquis so he maynot need triple therapy and on discharge will DC ASA. 5.Acute encephalopathy and small SAH. Initial CT shows trace subarachnoid hemorrhage. Follow-up CT shows stable hemorrhage. Neurosurgery consulted and they recommend no need for antiseizure medicationand resume Eliquis. He is alert and but not fully orientate . 6.Acute on CKD. Baseline Cr around 1.3-1.6. Cr today is 2.03. This may be related with contrast he received. Will hold on Lasix for now. 7.Hypertension. BP reviewed. Continue amlodipine, clonidine, beta lydia, and hydralazine 8.Diabetes mellitus. BG reviewed. Continue Lantus 40 units daily and NovoLog 12 units TID and insulin dose correctional scale. 9.Atrial fibrillation. Tele revealed AF. Currently rate under control. Continue beta-lydia and Eliquis 10.BPH. Continue Flomax. Urine is more clear this am on my evaluation. Discuss with nurse to remove cotton. 11.History of mild cognitive impairment. Continue donepezil 12.Mood disorder. Continue Remeron and seroquel 13.DVT prophylaxis. Eliquis 14.CODE STATUS. Full Code 15.KAREY. Continue CPAP 16.Hyperlipidemia. Continue Crestor Plan of care discussed with family at bedside and discussed with assigned nurse. Please follow case management note for disposition plan. Interval History HPI He is feeling tired. Urine is more clear. No fever overnight There is slight leukocytosis He is on oxygen Therapy recommend placement Tele revealed AF Review of Systems Review of Systems Constitutional: Positive for fatigue. Negative for chills and fever. Respiratory: Negative for cough and shortness of breath. Cardiovascular: Negative for chest pain. Gastrointestinal: Negative for abdominal distention and abdominal pain. Musculoskeletal: Positive for gait problem. Skin: Positive for color change. Neurological: Negative for dizziness, light-headedness and headaches. Psychiatric/Behavioral: Negative for agitation and behavioral problems. Physical Exam Vital Signs: Temp: 98.4 F (36.9 C) | BP: 144/79 | Pulse: 55 | Resp: 16 | Pain Ratin (out of 10) | Weight: (!) 141.7 kg (312 lb 8 oz) | O2 Device: NC - no humidity O2 Flow Rate (L/min): 2 l/min | SpO2: 97 % Maximum Temperatures (last 24 hours) Temperature Maximum Max Temp 98.4 F (36.9 C) Intake and Output: 07/28 0700 - 07/29 0659 In: 1310 [Oral:1310] Out: 2925 [Urine:2925] Physical Exam Constitutional: General: He is not in acute distress. Appearance: He is not ill-appearing. HENT: Head: Normocephalic and atraumatic. Cardiovascular: Comments: Irregular rhythm Pulmonary: Effort: Pulmonary effort is normal. Breath sounds: Normal breath sounds. Abdominal: General: Abdomen is flat. Bowel sounds are normal. There is no distension. Palpations: Abdomen is soft. Tenderness: There is no abdominal tenderness. Genitourinary: Comments: Cath in place Musculoskeletal: General: Swelling present. Labs Labs (Last day) 07/29/20 1038 - 07/29/20 1038 CBC 07/29/20 1038 CBC WBC 4.0-11.0 (K/uL) 11.1 RBC 4.40-5.80 (M/uL) 4.16 Hemoglobin 13.5-17.5 (g/dL) 12.6 Hematocrit 40.0-50.0 (%) 38.0 MCV 80.0-98.0 (fL) 91.3 MCH 25.5-34.0 (pg) 30.3 MCHC 31.5-36.5 (g/dL) 33.2 RDW-CV 11.5-15.5 (%) 13.1 RDW-SD 35.5-50.0 (fl) 43.5 Platelet Count 140-400 (K/uL) 326 MPV 8.5-12.0 (fL) 10.5 07/29/20 1038 - 07/29/20 1038 CHEMISTRY 07/29/20 1038 07/29/20 1038 CHEMISTRY Glucose 70-100 (mg/dL) 229 Sodium 135-145 (meq/L) 138 Potassium 3.5-5.3 (meq/L) 3.7 Chloride 99-110 (meq/L) 97 CO2 20-29 (meq/L) 28 Anion Gap with K 6-20 (meq/L) 17 BUN 6-22 (mg/dL) 79 Creatinine 0.80-1.30 (mg/dL) 2.03 BUN/Creatinine Ratio 10.0-25.0 38.9 Calcium 8.5-10.5 (mg/dL) 8.1 Magnesium 1.8-2.4 (mg/dL) 2.6 eGFR >=60 (mL/min/1.73m2) 38 eGFR Non- >=60 (mL/min/1.73m2) 32 07/29/20 1038 - 07/29/20 1038 DIFFERENTIAL 07/29/20 1038 DIFFERENTIAL Seg Neut Absolute 1.8-8.0 (K/uL) 8.8 Lymphocytes Absolute 0.8-4.1 (K/uL) 1.0 Monocytes Absolute 0.0-1.0 (K/uL) 0.8 Eosinophils Absolute 0.0-0.7 (K/uL) 0.2 Basophil Absolute 0.0-0.2 (K/uL) 0.1 Immature Granulocyte Absolute 0.00-0.06 (K/uL) 0.24 Neutrophils Percent (%) 78.9 Neutrophils Abs. (Segs and Bands) (/uL) 8,800 Lymphocytes Percent (%) 9.1 Monocytes Percent (%) 7.5 Immature Granulocyte Percent (%) 2.2 Eosinophils Percent (%) 1.7 Basophil Percent (%) 0.6 Nucleated RBC (/100 WBC's) 0 07/29/20 1111 - 07/28/20 1639 GLUCOSE POINT OF CARE 07/29/20 1111 07/29/20 0610 07/28/20 1947 07/28/20 1639 GLUCOSE POINT OF CARE Glucose POC 70-99 (mg/dL) 196 164 247 285 07/29/20 1038 - 07/29/20 1038 OTHER 07/29/20 1038 OTHER Age (Years) 79 Medical Decision making Medical Decision Making Rin Carvalho MD - 07/28/2020 4:48 PM CDT Cardiology Hospital Progress Note Assessment / Plan Active Problems: Encephalopathy Resolved Problems: * No resolved hospital problems. * 1. NSTEMI likely type I versus type II 2. Worsening dysrhythmiaconcerning for coronary artery disease 3. Persistent atrial fibrillation with a controlled rate, on chronic anticoagulation with Eliquis 4. ACute on chronic diastolic heart failure 5. Mild subarachnoid hemorrhage, stableneurosurgery agreed with to restart anticoagulation 6. Streptococcus agalactiae bacteremia 79-year-old gentleman with a past medical history of atrial fibrillation on Eliquis, CKD stage III, diabetes mellitus type 2, COPD, hyperlipidemia, morbid obesity, hypertension who transferred from outside facility for generalized weakness and fall at home. Patient was found to have mild subarachnoid hemorrhage, which was stable on repeat CT scan showed stable subarachnoid hemorrhage. Neurosurgery evaluated the patient, cleared for anticoagulation. Patient had mildly elevated troponin I 0.338 which is trended down to 0.317, 0.260. EKG on admission showed A. fib with slow ventricular rate no significant ST-T changes. Cardiology was consulted on admission for NSTEMI, considered type II due to no chest pain, minimal elevation of troponin which istrending down, with underlying diastolic heart failure, CKD and subarachnoid hemorrhage. Patient had echocardiography which showed EF of 60% with no regional wall motion abnormalities, trivial aortic regurgitation, mild aortic stenosis, mild mitral stenosis and a mild tricuspid regurgitation and pulmonary hypertension mild. Patient started having multiple PVCs on telemetry, asymptomatic concern for underlying significant coronary artery disease. Repeat EKG from 07/26/2020 showed atrial fibrillation with normal rate, multiple premature ventricular contractions no significant ST-T changes. Patient had SHAMEKA for Gram-positive bacteremia, negative for any vegetations. Patient had severe chest pain prior to PET stress test, received nitro which reduced pain Subsequently underwent left heart catheterization on 07/27/2020- 80 % mid RCA treated with 5.0 x 18 resolute BURKE post dilated with 6.0 NC balloon to 16 MARGARET with excellent results, 50 % md LAD stenosis, non obstructive disease in circ Plan --aspirin 81 mg once daily until discharge, then only on plavix and eliquis for 1 year, then switch back to ASA and eliquis indefinitely -- Plavix 75 once daily -- Continue eliquis for Afib -- Continue crestor 40 mg once daily -- During discharge eliquis and plavix, no need for aspirin, can switch to aspirin and eliquis afterone year Correct electrolytes, keep potassium greater than 4, magnesium greater than 2. Continue metoprolol tartrate, 12.5 mg twice daily, hold if heart rate less than 55. -- Cardiac rehab -- follow up with cardiology on out patient in [facility] in 2-4 weeks, Dr. Duggan visit's this facility Cardiology will sign off, please call with questions HPI / History / ROS Stephen Haddad is a 79yr old male admitted on 07/21/2020. Review of Systems Constitutional: Positive for fatigue. HENT: Negative. Eyes: Negative. Respiratory: Positive for shortness of breath. Cardiovascular: Positive for chest pain. Gastrointestinal: Negative. Endocrine: Negative. Genitourinary: Negative. Musculoskeletal: Negative. Skin: Negative. Allergic/Immunologic: Negative. Neurological: Negative. Hematological: Negative. Psychiatric/Behavioral: Negative. Physical / Results Current Vital Signs Temp: 97.7 F (36.5 C) BP: 148/66 Weight: (!) 141 kg (310 lb 13.6 oz) SpO2: 91 % Resp: 16 Pulse: 59 Current BMI (>50 = increased risk): (!) 36.58 O2 Device: BiPAP O2 Flow Rate (L/min): 2 l/min Pain Ratin Maximum Temperatures (last 24 hours) Temperature Maximum Max Temp 98.1 F (36.7 C) Physical Exam Constitutional: He appears acutely ill. HENT: Mouth/Throat: Oropharynx is clear. Eyes: Pupils are equal, round, and reactive to light. Neck: Normal range of motion. Pulmonary/Chest: Breath sounds normal. He has no wheezes. He has no rales. He exhibits no tenderness. Abdominal: Soft. Musculoskeletal: Normal range of motion. Neurological: He is alert and oriented to person, place, and time. Skin: Skin is warm. Medical Decision Making I have: Ordered laboratory, radiology or other diagnostic tests. Independently visualized and interpreted an image, tracing or specimen previously or subsequently interpreted by another provider. Discussed results of laboratory, radiology or other diagnostic tests with the physician who performed or interpreted the study. Yadiel Montanez MD PGY3 Internal Medicine Resident [facility] Pager: [phone]\\ Associated attestation - Rolanda aSldivar MD - 07/28/2020 5:26 PM CDT I discussed the patient with the resident and personally interviewed and examined the patient. I verified in the medical record all resident documentation/findings, including history, physical exam, and medical decision making, and I agree with the resident's documentation. Patient's and son were at bedside. Explained them the procedure and stent that happened yesterday. Discuss medication changes and further management. All questions answered. Let them know that PETscan was incomplete and due to chest pain we elected to go for coronary angiogram so they can ignorethe PET scan results on my chart. Rolanda Saldivar MD, PhD Contact Center Assistant [facility] Darin Nathan MD - 07/28/2020 4:42 PM CDT DAILY PROGRESS NOTE Stephen Haddad is a 79yr old male admitted on 07/21/2020 7:34 AM. Impression / Plan Summary.79-year-old male with past medical history of diabetes mellitus, hypertension, atrial fibrillation on anticoagulation presented to hospital with generalized weakness and fall. He was found to have mild subarachnoid hemorrhage. Neurosurgery okay to continue anticoagulation. He was also in non- ST segment [place]. Cardiology consulted and they recommend no testing at this is likely related with demand. Blood culture at outside facility grew alphahemolytic streptococci. Blood culture at our facility negative. MRSA negative. Urine culture shows no growth. SHAMEKA which revealed no evidence of vegetation. Infectious disease following and patient is on ceftriaxone. During hospital stay patient had frequent PVCs. Cardiology reconsulted and patient was started on beta-lydia and plan for PET stress test. Subsequently he had chest pain and PET scan cancelled and underwent left heart cath and stent placed in RCA. Assessment and plan 1.Gram-positive bacteremia secondary to strep agalactiae group B. Blood culture positive at outside facility. Repeat blood culture at our facility negative. SHAMEKA negative for vegetation. ID following. MRSA negative. Continue ceftriaxone with last dose 08/04. 2.Acute hypoxic respiratory failure secondary to acute CHF Recent echo revealed normal LV function. There is dilated IVC. Discuss with nurse try to wean down oxygen. Will hold Lasix today and assess kidney function tomorrow. 3.NSTEMI status post left heart cath S/P PCI in RCA. Continue DAPT. Given he is on Eliquis so he maynot need triple therapy. 4.Acute encephalopathy and small SAH. Initial CT shows trace subarachnoid hemorrhage. Follow-up CT shows stable hemorrhage. Neurosurgery consulted and they recommend no need for antiseizure medicationand resume Eliquis. He is alert and orientated. 5.Chronic kidney disease. Baseline Cr around 1.3-1.6. Cr today is 1.67 and he underwent cath yesterday. Monitor for now. 6.Hypertension. BP reviewed. Continue amlodipine, beta lydia, and hydralazine with increase dose. 7.Diabetes mellitus. BG reviewed. Continue Lantus 40 units daily and NovoLog 8 units TID and insulindose correctional scale. 8.Atrial fibrillation. Tele revealed AF. Currently rate under control. Continue beta-lydia and Eliquis 9.Hyperlipidemia. Continue Crestor 10.BPH. Continue Flomax. Urine is dark but Hb is normal. For now will monitor. 11.History of mild cognitive impairment. Continue donepezil 12.Mood disorder. Continue Remeron and seroquel 13.DVT prophylaxis. Eliquis 14.CODE STATUS. Full Code 15.KAREY. Continue CPAP Plan of care discussed with family at bedside. Discuss with nurse to monitor for hematuria given urine is dark. Interval History HPI He underwent stent in RCA Family was upset as there was no communication from cardiology but looks like resident did call the but she didn't picker tender helper the phone No fever overnight BP reviewed Review of Systems Review of Systems Constitutional: Positive for fatigue. Negative for chills and fever. Respiratory: Negative for cough and shortness of breath. Cardiovascular: Negative for chest pain. Gastrointestinal: Negative for abdominal distention and abdominal pain. Musculoskeletal: Positive for gait problem. Neurological: Negative for dizziness, light-headedness and headaches. Psychiatric/Behavioral: Negative for agitation and behavioral problems. Physical Exam Vital Signs: Temp: 97.8 F (36.6 C) | BP: 134/77 | Pulse: 78 | Resp: 18 | Pain Ratin (out of 10) | Weight: (!) 141.7 kg (312 lb 8 oz) | O2 Device: Room Air O2 Flow Rate (L/min): 1 l/min | SpO2: 100 % Maximum Temperatures (last 24 hours) Temperature Maximum Max Temp 98.1 F (36.7 C) Intake and Output: 07/27 0700 - 07/28 0659 In: 350 [Oral:350] Out: 900 [Urine:900] Physical Exam Constitutional: General: He is not in acute distress. Appearance: He is not ill-appearing. HENT: Head: Normocephalic and atraumatic. Cardiovascular: Comments: Irregular rhythm Pulmonary: Effort: Pulmonary effort is normal. Breath sounds: Normal breath sounds. Abdominal: General: Abdomen is flat. Bowel sounds are normal. There is no distension. Palpations: Abdomen is soft. Tenderness: There is no abdominal tenderness. Genitourinary: Comments: Cath in place Musculoskeletal: General: Swelling present. Labs Labs (Last day) 07/28/20750 - 07/28/20750 CBC 07/28/20750 CBC WBC 4.0-11.0 (K/uL) 11.3 RBC 4.40-5.80 (M/uL) 4.08 Hemoglobin 13.5-17.5 (g/dL) 12.5 Hematocrit 40.0-50.0 (%) 37.9 MCV 80.0-98.0 (fL) 92.9 MCH 25.5-34.0 (pg) 30.6 MCHC 31.5-36.5 (g/dL) 33.0 RDW-CV 11.5-15.5 (%) 13.2 RDW-SD 35.5-50.0 (fl) 45.4 Platelet Count 140-400 (K/uL) 285 MPV 8.5-12.0 (fL) 10.0 07/28/20750 - 07/28/20750 CHEMISTRY 07/28/2075007/28/20750 CHEMISTRY Glucose 70-100 (mg/dL) 192 Sodium 135-145 (meq/L) 140 Potassium 3.5-5.3 (meq/L) 3.7 Chloride 99-110 (meq/L) 99 CO2 20-29 (meq/L) 32 Anion Gap with K 6-20 (meq/L) 13 BUN 6-22 (mg/dL) 77 Creatinine 0.80-1.30 (mg/dL) 1.67 BUN/Creatinine Ratio 10.0-25.0 46.1 Calcium 8.5-10.5 (mg/dL) 8.2 Magnesium 1.8-2.4 (mg/dL) 2.6 eGFR >=60 (mL/min/1.73m2) 48 eGFR Non- >=60 (mL/min/1.73m2) 40 07/28/20 0751 - 07/28/20 0751 DIFFERENTIAL 07/28/20 0751 DIFFERENTIAL Seg Neut Absolute 1.8-8.0 (K/uL) 8.4 Lymphocytes Absolute 0.8-4.1 (K/uL) 1.4 Monocytes Absolute 0.0-1.0 (K/uL) 1.1 Eosinophils Absolute 0.0-0.7 (K/uL) 0.1 Basophil Absolute 0.0-0.2 (K/uL) 0.1 Immature Granulocyte Absolute 0.00-0.06 (K/uL) 0.28 Neutrophils Percent (%) 74.1 Neutrophils Abs. (Segs and Bands) (/uL) 8,400 Lymphocytes Percent (%) 12.3 Monocytes Percent (%) 9.3 Immature Granulocyte Percent (%) 2.5 Eosinophils Percent (%) 1.1 Basophil Percent (%) 0.7 Nucleated RBC (/100 WBC's) 0 07/27/20 1644 - 07/27/20 1644 ECG/EKG 07/27/20 1644 ECG/EKG EKG WAVEFORM Atrial fibrillation Left axis deviation Right bundle branch block Inferior infarct (cited on or before 27-MAY-2001) Ventricular Rate: 63 BPM Atrial Rate: 357 BPM QRS Duration: 172 ms Q-T Interval: 572 ms QTc Calculation(Bazett): 585 ms Calculated R Rule: -43 degrees Calculated T Rule: -21 degrees 07/28/20 1639 - 07/27/20 1659 GLUCOSE POINT OF CARE 07/28/20 1639 07/28/20 1134 07/28/20 0526 07/27/20 2120 07/27/20 1659 GLUCOSE POINT OF CARE Glucose POC 70-99 (mg/dL) 285 310 190 293 179 07/28/20 0751 - 07/28/20 0751 OTHER 07/28/20 0751 OTHER Age (Years) 79 Medical Decision making Medical Decision Making Darin Cole MD - 07/27/2020 3:00 PM CDT DAILY PROGRESS NOTE Stephen Haddad is a 79yr old male admitted on 07/21/2020 7:34 AM. Impression / Plan Summary.79-year-old male with past medical history of diabetes mellitus, hypertension, atrial fibrillation on anticoagulation presented to hospital with generalized weakness and fall. He was found to have mild subarachnoid hemorrhage. Neurosurgery okay to continue anticoagulation. He was also in non- ST segment CA. Cardiology consulted and they recommend no testing at this is likely related with demand. Blood culture at outside facility grew alphahemolytic streptococci. Blood culture at our facility negative. MRSA negative. Urine culture shows no growth. SHAMEKA which revealed no evidence of vegetation. Infectious disease following and patient is on ceftriaxone. During hospital stay patient had frequent PVCs. Cardiology reconsulted and patient was started on beta-lydia and plan for PET stress test. Assessment and plan 1.Acute encephalopathy and small subarachnoid hemorrhage. Initial CT shows trace subarachnoid hemorrhage. Follow-up CT shows stable hemorrhage. Neurosurgery consulted and they recommend no need for antiseizure medication and resume Eliquis. 2.Gram-positive bacteremia secondary to alpha hemolytic strep. Blood culture positive at outside facility. Repeat blood culture at our facility negative. SHAMEKA negative for vegetation. ID following. MRSA negative. Continue ceftriaxone. 3.Acute hypoxic respiratory failure secondary to acute CHF Recent echo revealed normal LV function. There is dilated IVC.Patient does use Lasix 40 at home and will hold further dose for now given he underwent cath. Will do BMP and decide further regarding Lasix. 4.NSTEMI and episode of chest pain status post left heart cath S/P PCI in RCA. Initial plan for PET but he developed chest pain which improved with NG. Risk of SONALI discussed with family. He underwent cath and stent in RCA placed. Continue ASA and plavix. 5.Chronic kidney disease. Baseline Cr around 1.3-1.6. Cr close to baseline. Will monitor. 6.Hypertension. Continue amlodipine and clonidine and hydralazine. 7.Diabetes mellitus. BG reviewed. Continue Lantus 40 units daily and NovoLog 5 units 3 times daily and insulin dose correctional scale. 8.Hyperlipidemia. Continue Crestor 9.BPH. Continue Flomax 10.Atrial fibrillation. Tele revealed AF. Currently rate under control. Continue beta-lydia and continue Eliquis 11.History of mild cognitive impairment. Continue donepezil 12.Mood disorder. Continue Remeron and seroquel 13.DVT prophylaxis Eliquis 14.CODE STATUS. Full Code 15.KAREY. Continue CPAP Plan of care discussed with family at bedside Interval History HPI He was suppose to undergo stress test but developed chest pain CP improve with NG so stress test cancelled Plan for LHC and he had stent placed in RCA Risk of SONALI discussed with family at bed side and they verbalized and wants to proceed Tele revealed AF 70-80 Review of Systems Review of Systems Constitutional: Negative for chills and fever. Cardiovascular: Positive for chest pain. Unable to assess as he was sleeping Physical Exam Vital Signs: Temp: 97.4 F (36.3 C) | BP: 155/95 | Pulse: 85 | Resp: 16 | Pain Ratin (out of 10) | Weight: (!) 141 kg (310 lb 13.6 oz) | O2 Device: BiPAP O2 Flow Rate (L/min): 2 l/min | SpO2: 100 % Maximum Temperatures (last 24 hours) Temperature Maximum Max Temp 98.6 F (37 C) Intake and Output: 07/26 0700 - 07/27 0659 In: 1950 [Oral:1450] Out: 1850 [Urine:1850] Physical Exam Constitutional: General: He is not in acute distress. Appearance: He is not ill-appearing. HENT: Head: Normocephalic and atraumatic. Cardiovascular: Comments: Irregular rhythm Pulmonary: Effort: Pulmonary effort is normal. Breath sounds: Normal breath sounds. Abdominal: General: Abdomen is flat. Bowel sounds are normal. There is no distension. Palpations: Abdomen is soft. Tenderness: There is no abdominal tenderness. Genitourinary: Comments: Cath in place Musculoskeletal: General: Swelling present. Labs Labs (Last day) 07/27/20 0713 - 07/27/20 0713 CARDIAC MARKERS 07/27/20 07 CARDIAC MARKERS Troponin I 0.000-0.028 (ng/mL) 0.086 07/27/20 0713 - 07/27/20 0713 CBC 07/27/20 0713 CBC WBC 4.0-11.0 (K/uL) 9.9 RBC 4.40-5.80 (M/uL) 4.04 Hemoglobin 13.5-17.5 (g/dL) 12.2 Hematocrit 40.0-50.0 (%) 37.9 MCV 80.0-98.0 (fL) 93.8 MCH 25.5-34.0 (pg) 30.2 MCHC 31.5-36.5 (g/dL) 32.2 RDW-CV 11.5-15.5 (%) 13.3 RDW-SD 35.5-50.0 (fl) 45.8 Platelet Count 140-400 (K/uL) 236 MPV 8.5-12.0 (fL) 10.1 07/27/20 07 - 07/27/20 07 CHEMISTRY 07/27/20 0707/27/20 07 CHEMISTRY Glucose 70-100 (mg/dL) 181 Sodium 135-145 (meq/L) 140 Potassium 3.5-5.3 (meq/L) 3.5 Chloride 99-110 (meq/L) 99 CO2 20-29 (meq/L) 33 Anion Gap with K 6-20 (meq/L) 12 BUN 6-22 (mg/dL) 75 Creatinine 0.80-1.30 (mg/dL) 1.64 BUN/Creatinine Ratio 10.0-25.0 45.7 Calcium 8.5-10.5 (mg/dL) 8.2 Magnesium 1.8-2.4 (mg/dL) 2.6 eGFR >=60 (mL/min/1.73m2) 49 eGFR Non- >=60 (mL/min/1.73m2) 41 07/27/20712 - 07/27/20 0713 DIFFERENTIAL 07/27/20 07 DIFFERENTIAL Seg Neut Absolute 1.8-8.0 (K/uL) 7.6 Lymphocytes Absolute 0.8-4.1 (K/uL) 0.9 Monocytes Absolute 0.0-1.0 (K/uL) 1.1 Eosinophils Absolute 0.0-0.7 (K/uL) 0.1 Basophil Absolute 0.0-0.2 (K/uL) 0.1 Immature Granulocyte Absolute 0.00-0.06 (K/uL) 0.21 Neutrophils Percent (%) 76.6 Neutrophils Abs. (Segs and Bands) (/uL) 7,600 Lymphocytes Percent (%) 9.2 Monocytes Percent (%) 10.6 Immature Granulocyte Percent (%) 2.1 Eosinophils Percent (%) 1.0 Basophil Percent (%) 0.5 Nucleated RBC (/100 WBC's) 0 07/27/20 1425 - 07/27/20 1021 ECG/EKG 07/27/20 1425 07/27/20 1021 ECG/EKG EKG WAVEFORM Atrial fibrillation with slow ventricular response with premature ventricular or aberrantly conducted complexes Left axis deviation Right bundle branch block Inferior infarct (cited on or before 27-MAY-2001) Abnormal ECG When compared with ECG of 27-JUL-2020 10:21, Inverted T waves have replaced nonspecific T wave abnormality in Inferior leads T wave inversion no longer evident in Anterior leads Ventricular Rate: 52 BPM QRS Duration: 172 ms Q-T Interval: 634 ms QTc Calculation(Bazett): 589 ms Calculated R Rule: -44 degrees Calculated T Rule: 12 degrees WAVEFORM Atrial fibrillation with premature ventricular or aberrantly conducted complexes Left axis deviation Right bundle branch block Inferior infarct , age undetermined Abnormal ECG When compared with ECG of 26-JUL-2020 13:27, Atrial fibrillation has replaced Wide QRS rhythm Ventricular Rate: 67 BPM Atrial Rate: 113 BPM QRS Duration: 178 ms Q-T Interval: 608 ms QTc Calculation(Bazett): 642 ms Calculated R Rule: -43 degrees Calculated T Rule: -5 degrees 07/27/20 1051 - 07/26/20 1700 GLUCOSE POINT OF CARE 07/27/20 1051 07/27/20 0525 07/26/20202607/26/20 1700 GLUCOSE POINT OF CARE Glucose POC 70-99 (mg/dL) 178 183 362 264 07/27/20 0713 - 07/27/20 0713 OTHER 07/27/20 0713 OTHER Age (Years) 79 Medical Decision making Medical Decision Making Shellie Rouse MD - 07/27/2020 2:04 PM CDT INFECTIOUS DISEASE PROGRESS Impression - Streptococcus agalactiae (Group B) bacteremia, SHAMEKA with no vegetation - NSTEMI - Small subarachnoid bleed Plan - Continue Ceftriaxone 2g IV daily - Anticipate IV Ceftriaxone till 08/04/20 - Follow cultures Please call for discharge IV antibiotic orders Shellie Fraga MD Infectious Disease Pager [phone] Interval History Afebrile S/p cardiac catheterization with angioplasty today He is tired Antibiotics Antibiotics (From admission, onward) Start Stop Route Frequency Ordered 07/22/20 2200 vancomycin (VANCOCIN) 2,000 mg in sodium chloride 0.9% 500 mL (Locked) Status: Discontinued 07/23 1647 IV Every twenty four hours 07/22/20 2133 07/22/20 1600 cefTRIAXone (ROCEPHIN) 2000 mg/20 mL IV syringe in sterile water -- IV Every twenty four hours 07/22/20 1557 07/22/20 1430 vancomycin (VANCOCIN) 2,000 mg in sodium chloride 0.9% 500 mL (Locked) Status: Discontinued 07/22 1415 IV Every eighteen hours 07/22/20 1414 07/22/20 1415 vancomycin therapy reminder Status: Discontinued 07/22 2132 MISC Upon permission 07/22/20 1417 07/21/20 1900 vancomycin (VANCOCIN) 2,000 mg in sodium chloride 0.9% 500 mL (Locked) Status: Discontinued 07/22 1321 IV Every eighteen hours 07/21/20 1821 07/21/20 1330 cefTRIAXone (ROCEPHIN) 1000 mg/10 mL IV syringe in sterile water Status: Discontinued 07/22 1557 IV DAILY 07/21/20 1222 07/21/20 1330 azithromycin (ZITHROMAX) tablet 500 mg 07/23 0801 PO Daily 07/21/20 1222 All other medications reviewed in [facility]. Physical Exam Current Vital Signs Temp: 97.7 F (36.5 C) BP: 148/66 Pulse: 59 O2 Device: BiPAP O2 Flow Rate (L/min): 2 l/min Resp: 16 Pain Ratin (out of 10) Weight: (!) 141 kg (310 lb 13.6 oz) SpO2: 91 % Maximum Temperatures (last 24 hours) Temperature Maximum Max Temp 98.6 F (37 C) Physical Exam General: cooperative, no distress HEENT: On bipap Lungs: Decreased breath sounds bilaterally Heart: irregular, no audible murmurs Abdomen: soft, no tenderness Msk: no swelling of joints, no edema Skin: no suspicious rashes Neuro: Alert, follows come commands Microbiology BLOOD: 4/14/21 - No growth 07/21/20 - Streptococcus agalactiae (Group B) - outside facility Labs and Imaging Estimated Creatinine Clearance: 45.7 mL/min (A) (based on SCr of 1.64 mg/dL (H)). Lab Results Component Value Date WBC 9.9 07/27/2020 NUCRBC 0 07/27/2020 RBC 4.04 (L) 07/27/2020 HEMOGLOBIN 12.2 (L) 07/27/2020 HEMATOCRIT 37.9 (L) 07/27/2020 MCV 93.8 07/27/2020 MCH 30.2 07/27/2020 MCHC 32.2 07/27/2020 PLTCOUNT 236 07/27/2020 NEUTROPCT 76.6 07/27/2020 BANDPCT 2.0 01/18/2016 LYMPHSPCT 9.2 07/27/2020 MONOSPCT 10.6 07/27/2020 EOSPCT 1.0 07/27/2020 BASOPHILPCT 0.5 07/27/2020 Lab Results Component Value Date GLUCOSE 178 (H) 07/27/2020 BUN 75 (H) 07/27/2020 CREATSERUM 1.64 (H) 07/27/2020 BCRATIO 45.7 (H) 07/27/2020 NA 140 07/27/2020 POTASSIUM 3.5 07/27/2020 CL 99 07/27/2020 CO2 33 (H) 07/27/2020 CA 8.2 (L) 07/27/2020 PROTEINTOTAL 5.3 (L) 07/22/2020 ALBUMIN 3.0 (L) 07/22/2020 ALKPHOS 95 07/22/2020 AST 50 (H) 07/22/2020 ALT 35 07/22/2020 BILITOTAL 1.1 07/22/2020 Medical Decision Making Total unit / floor time 35 minutes. Over 50% of total time used in counseling and coordination of care. Rin Cotto MD - 07/27/2020 10:57 AM CDT Cardiology Hospital Progress Note Assessment / Plan Active Problems: Encephalopathy Resolved Problems: * No resolved hospital problems. * 1. NSTEMI likely type I versus type II 2. Worsening dysrhythmiaconcerning for coronary artery disease 3. Persistent atrial fibrillation with a controlled rate, on chronic anticoagulation with Eliquis 4. ACute on chronic diastolic heart failure 5. Mild subarachnoid hemorrhage, stableneurosurgery agreed with to restart anticoagulation 6. Streptococcus agalactiae bacteremia 79-year-old gentleman with a past medical history of atrial fibrillation on Eliquis, CKD stage III, diabetes mellitus type 2, COPD, hyperlipidemia, morbid obesity, hypertension who transferred from outside facility for generalized weakness and fall at home. Patient was found to have mild subarachnoid hemorrhage, which was stable on repeat CT scan showed stable subarachnoid hemorrhage. Neurosurgery evaluated the patient, cleared for anticoagulation. Patient had mildly elevated troponin I 0.338 which is trended down to 0.317, 0.260. EKG on admission showed A. fib with slow ventricular rate no significant ST-T changes. Cardiology was consulted on admission for NSTEMI, considered type II due to no chest pain, minimal elevation of troponin which istrending down, with underlying diastolic heart failure, CKD and subarachnoid hemorrhage. Patient had echocardiography which showed EF of 60% with no regional wall motion abnormalities, trivial aortic regurgitation, mild aortic stenosis, mild mitral stenosis and a mild tricuspid regurgitation and pulmonary hypertension mild. Patient started having multiple PVCs on telemetry, asymptomatic concern for underlying significant coronary artery disease. Repeat EKG from 07/26/2020 showed atrial fibrillation with normal rate, multiple premature ventricular contractions no significant ST-T changes. Patient had SHAMEKA for Gram-positive bacteremia, negative for any vegetations. Patient had severe chest pain prior to PET stress test, received nitro which reduced pain Subsequently underwent left heart catheterization on 07/27/2020- 80 % mid RCA treated with 5.0 x 18 resolute BURKE post dilated with 6.0 NC balloon to 16 MARGARET with excellent results, 50 % md LAD stenosis, non obstructive disease in circ Plan --aspirin 81 indefinitely -- Plavix 75 once daily -- Continue eliquis for Afib -- Continue crestor 40 mg once daily -- During discharge eliquis and plavix, no need for aspirin, can switch to aspirin and eliquis afterone year Correct electrolytes, keep potassium greater than 4, magnesium greater than 2. Continue metoprolol tartrate, 12.5 mg twice daily, hold if heart rate less than 55. -- Cardiac rehab -- follow up with cardiology on out patient in 2-3 months Cardiology will follow, please call with questions HPI / History / ROS Stephen Haddad is a 79yr old male admitted on 07/21/2020. Review of Systems Constitutional: Positive for fatigue. HENT: Negative. Eyes: Negative. Respiratory: Positive for shortness of breath. Cardiovascular: Positive for chest pain. Gastrointestinal: Negative. Endocrine: Negative. Genitourinary: Negative. Musculoskeletal: Negative. Skin: Negative. Allergic/Immunologic: Negative. Neurological: Negative. Hematological: Negative. Psychiatric/Behavioral: Negative. Physical / Results Current Vital Signs Temp: 97.7 F (36.5 C) BP: 148/66 Weight: (!) 141 kg (310 lb 13.6 oz) SpO2: 91 % Resp: 16 Pulse: 59 Current BMI (>50 = increased risk): (!) 36.58 O2 Device: BiPAP O2 Flow Rate (L/min): 2 l/min Pain Ratin Maximum Temperatures (last 24 hours) Temperature Maximum Max Temp 98.6 F (37 C) Physical Exam Constitutional: He appears acutely ill. HENT: Mouth/Throat: Oropharynx is clear. Eyes: Pupils are equal, round, and reactive to light. Neck: Normal range of motion. Pulmonary/Chest: Breath sounds normal. He has no wheezes. He has no rales. He exhibits no tenderness. Abdominal: Soft. Musculoskeletal: Normal range of motion. Neurological: He is alert and oriented to person, place, and time. Skin: Skin is warm. Medical Decision Making I have: Ordered laboratory, radiology or other diagnostic tests. Independently visualized and interpreted an image, tracing or specimen previously or subsequently interpreted by another provider. Discussed results of laboratory, radiology or other diagnostic tests with the physician who performed or interpreted the study. Yadiel Montanez MD PGY3 Internal Medicine Resident [facility]/ [facility] Pager: [phone]\\ Associated attestation - Rolanda Saldivar MD - 07/27/2020 3:56 PM CDT I discussed the patient with the resident and personally interviewed and examined the patient. I verified in the medical record all resident documentation/findings, including history, physical exam, and medical decision making, and I agree with the resident's documentation. Patient was going to get cardiac PET stress test for ischemic evaluation. However before the test started he had significant chest pain 10/10 that relieved with nitro to 5/10. Discussed with patient and family and recommend coronary angiogram. Risks benefits discussed and they were agreeable. Stress te st cancelled. He had angiogram and received a drug eluting stent to RCA, also has non-obstructive LAD disease. Continue medical management. Triple therapy in hospital and then Eliquis and Plavix at discharge. Would avoid intermission coordinator triple therapy given the bleeding risk in this elderly gentleman. Rolanda Saldivar MD, PhD Contact Center Assistant [facility] Darin Nathan MD - 07/26/2020 9:05 PM CDT DAILY PROGRESS NOTE Stephen Haddad is a 79yr old male admitted on 07/21/2020 7:34 AM. Impression / Plan Summary.79-year-old male with past medical history of diabetes mellitus, hypertension, atrial fibrillation on anticoagulation presented to hospital with generalized weakness and fall. He was found to have mild subarachnoid hemorrhage. Neurosurgery okay to continue anticoagulation. He was also in non- ST segment CA. Cardiology consulted and they recommend no testing at this is likely related with demand. Blood culture at outside facility grew alphahemolytic streptococci. Blood culture at our facility negative. MRSA negative. Urine culture shows no growth. SHAMEKA which revealed no evidence of vegetation. Infectious disease following and patient is on ceftriaxone. During hospital stay patient had frequent PVCs. Cardiology reconsulted and patient was started on beta-lydia and plan for PET stress test. Assessment and plan 1.Acute encephalopathy and small subarachnoid hemorrhage. Initial CT shows trace subarachnoid hemorrhage. Follow-up CT shows stable hemorrhage. Neurosurgery consulted and they recommend no need forantiseizure medication and resume Eliquis. He is more alert. 2.Gram-positive bacteremia secondary to alpha hemolytic strep. Blood culture positive at outside facility. Repeat blood culture at our facility negative. SHAMEKA negative for vegetation. ID following. MRSA negative. Continue ceftriaxone. 3.Acute hypoxic respiratory failure secondary to acute congestive heart failure. Recent echo revealed normal LV function. There is dilated IVC. BNP elevated. Patient does use Lasix 40 at home. He is currently on 40 mg IV twice daily. Continue Lasix. Labs reviewed and electrolyte replaced. Will adjust Lasix based on volume status. Discussed with nurse to wean down oxygen and continue fall risk precaution. 4.NSTEMI type II. Cardiology initially consulted and recommend no ischemic work- up it was thought hipolito secondary to congestive heart failure. On telemetry patient has frequent PVCs. Of note patient was not on BB. BB started. Cardiology consulted and plan for PET scan. 5.Chronic kidney disease. Baseline Cr around 1.3-1.6. Cr close to baseline. 6.Hypertension. Continue amlodipine and clonidine and hydralazine. 7.Diabetes mellitus. BG reviewed. He uses 40 units Lantus at home. At this time will continue [id number] units daily and NovoLog 5 units 3 times daily and insulin dose correctional scale. 8.Hyperlipidemia. Continue Crestor 9.BPH. Continue Flomax 10.Atrial fibrillation. Currently rate under control but shows frequent PVCs. Continue beta-blockerand continue Eliquis 11.History of mild cognitive impairment. Continue donepezil 12.Mood disorder. Continue Remeron and seroquel 13.DVT prophylaxis Eliquis 14.CODE STATUS.full code 15.KAREY. Continue CPAP. RT communication placed and discussed with bed side nurse. Plan of care discussed with family at bedside. Also discussed with cardiology over phone. Interval History HPI He denies abdominal pain, nausea and vomiting No fever overnight BG reviewed Tele revealed frequent PVC. Of note he is not on beta lydia He underwent SHAMEKA I discussed with and son at bed side and over the phone at 2 separate occasion Cardiology consult placed He is making urine Requested nurse to place on CPAP at night and continue fall risk precaution Review of Systems Review of Systems Constitutional: Negative for chills and fever. Respiratory: Negative for cough and shortness of breath. Cardiovascular: Positive for leg swelling. Negative for chest pain. Neurological: Negative for dizziness and light-headedness. Physical Exam Vital Signs: Temp: 97.4 F (36.3 C) | BP: 156/75 | Pulse: 57 | Resp: 20 | Pain Ratin (out of 10) | Weight: (!) 142.6 kg (314 lb 6.4 oz) | O2 Device: NC - no humidity O2 Flow Rate (L/min): 2 l/min | SpO2: 96 % Maximum Temperatures (last 24 hours) Temperature Maximum Max Temp 98.5 F (36.9 C) Intake and Output: 07/25 0700 - 07/26 0659 In: 680 [Oral:680] Out: 2039 [Urine:2039] Physical Exam Constitutional: General: He is not in acute distress. Appearance: He is not ill-appearing. HENT: Head: Normocephalic and atraumatic. Eyes: General: Right eye: No discharge. Left eye: No discharge. Cardiovascular: Comments: Irregular rhythm Pulmonary: Effort: Pulmonary effort is normal. Breath sounds: Rales present. Abdominal: General: Abdomen is flat. Bowel sounds are normal. There is no distension. Palpations: Abdomen is soft. Tenderness: There is no abdominal tenderness. Genitourinary: Comments: Cath in place Musculoskeletal: Normal range of motion. General: Swelling present. Neurological: Mental Status: He is oriented to person, place, and time. Psychiatric: Mood and Affect: Mood normal. Labs Labs (Last day) 07/26/20627 - 07/26/20627 CBC 07/26/20627 CBC WBC 4.0-11.0 (K/uL) 10.0 RBC 4.40-5.80 (M/uL) 4.06 Hemoglobin 13.5-17.5 (g/dL) 12.5 Hematocrit 40.0-50.0 (%) 37.6 MCV 80.0-98.0 (fL) 92.6 MCH 25.5-34.0 (pg) 30.8 MCHC 31.5-36.5 (g/dL) 33.2 RDW-CV 11.5-15.5 (%) 13.3 RDW-SD 35.5-50.0 (fl) 45.1 Platelet Count 140-400 (K/uL) 214 MPV 8.5-12.0 (fL) 10.4 07/26/20627 - 07/26/20627 CHEMISTRY 07/26/2062707/26/20627 CHEMISTRY Glucose 70-100 (mg/dL) 200 Sodium 135-145 (meq/L) 140 Potassium 3.5-5.3 (meq/L) 3.4 Chloride 99-110 (meq/L) 99 CO2 20-29 (meq/L) 30 Anion Gap with K 6-20 (meq/L) 14 BUN 6-22 (mg/dL) 65 Creatinine 0.80-1.30 (mg/dL) 1.58 BUN/Creatinine Ratio 10.0-25.0 41.1 Calcium 8.5-10.5 (mg/dL) 8.4 Magnesium 1.8-2.4 (mg/dL) 2.5 eGFR >=60 (mL/min/1.73m2) 51 eGFR Non- >=60 (mL/min/1.73m2) 42 07/26/20 0628 - 07/26/20 0628 DIFFERENTIAL 07/26/20 06 DIFFERENTIAL Seg Neut Absolute 1.8-8.0 (K/uL) 8.0 Lymphocytes Absolute 0.8-4.1 (K/uL) 0.9 Monocytes Absolute 0.0-1.0 (K/uL) 1.0 Eosinophils Absolute 0.0-0.7 (K/uL) 0.0 Basophil Absolute 0.0-0.2 (K/uL) 0.1 Immature Granulocyte Absolute 0.00-0.06 (K/uL) 0.12 Neutrophils Percent (%) 79.8 Neutrophils Abs. (Segs and Bands) (/uL) 8,000 Lymphocytes Percent (%) 8.6 Monocytes Percent (%) 9.6 Immature Granulocyte Percent (%) 1.2 Eosinophils Percent (%) 0.3 Basophil Percent (%) 0.5 Nucleated RBC (/100 WBC's) 0 07/26/20 1327 - 07/26/20 1327 ECG/EKG 07/26/20 1327 ECG/EKG EKG WAVEFORM Wide QRS rhythm with frequent Premature ventricular complexes with ventricular escape complexes Left axis deviation Right bundle branch block Cannot rule out Inferior infarct , age undetermined Abnormal ECG When compared with ECG of 26-JUL-2020 13:26, Wide QRS rhythm has replaced Atrial fibrillation Ventricular Rate: 66 BPM QRS Duration: 168 ms Q-T Interval: 566 ms QTc Calculation(Bazett): 593 ms Calculated R Rule: -40 degrees Calculated T Rule: -27 degrees 07/26/202026 - 07/26/20 0929 GLUCOSE POINT OF CARE 07/26/2007/26/21 1700 07/26/20 1229 07/26/20 1044 07/26/20 0929 GLUCOSE POINT OF CARE Glucose POC 70-99 (mg/dL) 362 264 215 199 185 07/26/20 0540 - 07/26/20 0540 GLUCOSE POINT OF CARE 07/26/20 0540 GLUCOSE POINT OF CARE Glucose POC 70-99 (mg/dL) 185 07/26/20 0628 - 07/26/20 0628 OTHER 07/26/20 0628 OTHER Age (Years) 79 Medical Decision making Medical Decision Making Shellie salvador MD - 07/26/2020 2:03 PM CDTBlood culture results obtained from outside facility. Streptococcus agalactiae (Group B) isolated from blood culture on 07/21/20. Attempted to see patient this am. SHAMEKA is in process. Shellie Fraga MD Infectious Disease Pager [phone] Ruth Etienne MD - 07/25/2020 4:37 PM CDT DAILY PROGRESS NOTE Stephen Haddad is a 79yr old male admitted on 07/21/2020 7:34 AM. Impression / Plan Mr. Haddad is a 79 year old gentleman with a past medical history significant for obesity, HTN, DMII, HLD, COPD/asthma, afib on AC, CKD stage III who presented as a direct admission from [facility] on 07/21/20 for evaluation of weakness and found to have acute CHF exacerbation and small SAH. Small SAH (Stable) Encephalopathy (Improved) - Patient with noted fall at home on 07/20/20 - CT on admission with trace SAH - Neurosurgery consulted, repeat CT completed on 07/22 with stable SAH - OK to resume eliquis per neurosurgery and no need for anti-seizure medication - Encephalopathy likely in setting of underlying infection, hypoglycemia, and sundowning - Neuro checks q4h - Sitter GPC Bacteremia - Likely Alpha Hemolytic Strep - Noted on 22 blood cultures at OSH - Repeat blood cultures NGTD - Continue antibiotics per ID - ID consulted - Vancomycin stopped per ID; continue cefrtriaxone - Plan for SHAMEKA on 07/26 to r/o vegetations NPO at [place] Acute Hypoxic Respiratory Failure 2/2 Acute on Chronic CHF Exacerbation (Improving) Troponin Elevation Presumed NSTEMI Type II likely 2/2 CHF Exacerbation Acute on Chronic CHF Exacerbation (Improving) - EKG from admission w/ afib - Troponin trended: 0.297 --> 0.338 --> 0.317 --> 0.260 - tele - Cardiology consulted, no testing for NSTEMI indicated they state that troponin elevation is most likely demand type II - BNP 959 - ECHO completed on 07/21/20 with EF 60%, no LV regional wall motion abnormalities - CXR with mild to moderate pulmonary vascular congestion - Lasix 40 mg IV daily; decreased from BID on 07/23/20 per cardiology recs - Continue BiPAP for now, wean per RT DEVANTE on CKD Stage III - Cr 1.76 on 07/23 --> 1.81 on 07/25 - Baseline Cr 1.4-1.5 - Possibly cardiorenal - Lasix decreased to daily on 07/24 - Hold losartan - Continue treatment as above - Continue to trend Mild COPD Exacerbation ?CAP, Asp PNA - Continue formoterol BID - Continue atrovent - Continue ceftriaxone - Continue azithromycin - Continue COPD RT Protocol Presumed UTI - UA with pyuria and leuk esterase - Urine culture no growth, blood culture NGTD - Continue ceftriaxone HTN - Continue amlodipine 10 mg daily - Continue clonidine 0.1 mg BID - Hold losartan give DEVANTE - Start hydralazine 25mg BID until renal function improves Mild Dementia Mood Disorder - Continue donepezil - Continue mirtazapine 15mg qhs Chronic Atrial Fibrillation - Eliquis resumed 07/22 per neurosurgery recs - EKG with afib HLD - Continue crestor BPH - Continue tamsulosin DMII - Home regimen glargine 40 U - Patient with noted hypoglycemia on admission - Glargine increased to 25U daily and aspart 5U TID; uptitrate as tolerated - Sliding scale, hypoglycemia protocol KAREY on CPAP - Continue NIV qhs Hypokalemia - Replete PRN Fluids: N/A Electrolytes: Replete PRN Nutrition: Cardiac, 2L fluid restriction; NPO at [place] GI: N/A DVT Prophylaxis: Eliquis Dispo: Pending medical stability. Patient will require SNF at discharge. CODE STATUS: FULL CODE Interval History - Mentation near baseline - Denied CP, + SOB - UOP 2.2L in last 24; Net neg 9.5L since adm Review of Systems Review of Systems Constitutional: Negative. HENT: Negative. Respiratory: Positive for shortness of breath. Cardiovascular: Negative. Gastrointestinal: Negative. Musculoskeletal: Negative. Neurological: Positive for weakness. Psychiatric/Behavioral: Negative. Physical Exam Vital Signs: Temp: 97.8 F (36.6 C) | BP: 152/77 | Pulse: 62 | Resp: 12 | Pain Ratin (out of10) | Weight: (!) 138.3 kg (304 lb 14.4 oz) | O2 Device: BiPAP O2 Flow Rate (L/min): 2 l/min | SpO2: 98 % Maximum Temperatures (last 24 hours) Temperature Maximum Max Temp 99.4 F (37.4 C) Intake and Output: 07/24 0700 - 07/25 0659 In: 1160 [Oral:1160] Out: 2270 [Urine:2270] Physical Exam Constitutional: Appearance: Normal appearance. HENT: Head: Atraumatic. Mouth/Throat: Mouth: Mucous membranes are moist. Eyes: Extraocular Movements: Extraocular movements intact. Cardiovascular: Rate and Rhythm: Rhythm irregular. Pulmonary: Effort: Pulmonary effort is normal. Comments: Diminished breath sounds Abdominal: Palpations: Abdomen is soft. Musculoskeletal: Normal range of motion. Skin: General: Skin is warm. Neurological: General: No focal deficit present. Mental Status: He is alert. Psychiatric: Mood and Affect: Mood normal. Behavior: Behavior normal. Labs Labs (Last day) 07/25/20 1027 - 07/25/20 1027 CBC 07/25/20 1027 CBC WBC 4.0-11.0 (K/uL) 11.7 RBC 4.40-5.80 (M/uL) 4.18 Hemoglobin 13.5-17.5 (g/dL) 13.0 Hematocrit 40.0-50.0 (%) 38.9 MCV 80.0-98.0 (fL) 93.1 MCH 25.5-34.0 (pg) 31.1 MCHC 31.5-36.5 (g/dL) 33.4 RDW-CV 11.5-15.5 (%) 13.4 RDW-SD 35.5-50.0 (fl) 45.8 Platelet Count 140-400 (K/uL) 210 MPV 8.5-12.0 (fL) 10.7 07/25/20 1027 - 07/25/20 1027 CHEMISTRY 07/25/20 1027 07/25/20 1027 07/25/20 1027 CHEMISTRY Glucose 70-100 (mg/dL) 446 Sodium 135-145 (meq/L) 137 Potassium 3.5-5.3 (meq/L) 3.2 Chloride 99-110 (meq/L) 97 CO2 20-29 (meq/L) 29 Anion Gap with K 6-20 (meq/L) 14 BUN 6-22 (mg/dL) 63 Creatinine 0.80-1.30 (mg/dL) 1.81 BUN/Creatinine Ratio 10.0-25.0 34.8 Calcium 8.5-10.5 (mg/dL) 8.4 Phosphorus 2.5-4.5 (mg/dL) 3.9 Magnesium 1.8-2.4 (mg/dL) 2.4 eGFR >=60 (mL/min/1.73m2) 44 eGFR Non- >=60 (mL/min/1.73m2) 36 07/25/20 1426 - 07/24/20 1658 GLUCOSE POINT OF CARE 07/25/20 1426 07/25/20 1100 07/25/20 0601 07/24/20 2047 07/24/20 1658 GLUCOSE POINT OF CARE Glucose POC 70-99 (mg/dL) 372 386 282 342 313 07/25/20 1027 - 07/25/20 1027 OTHER 07/25/20 1027 OTHER Age (Years) 79 Medical Decision making MDM Reviewed: previous chart, nursing note and vitals Ruth Etienne MD - 07/24/2020 10:02 AM CDT DAILY PROGRESS NOTE Stephen Haddad is a 79yr old male admitted on 07/21/2020 7:34 AM. Impression / Plan Mr. Haddad is a 79 year old gentleman with a past medical history significant for obesity, HTN, DMII, HLD, COPD/asthma, afib on AC, CKD stage III who presented as a direct admission from [facility] on 07/21/20 for evaluation of weakness and found to have acute CHF exacerbation and small SAH. Small SAH (Stable) Encephalopathy (Improved) - Patient with noted fall at home on 07/20/20 - CT on admission with trace SAH - Neurosurgery consulted, repeat CT completed on 07/22 with stable SAH - OK to resume eliquis per neurosurgery and no need for anti-seizure medication - Encephalopathy likely in setting of underlying infection, hypoglycemia, and ing - Neuro checks q4h - Sitter GPC Bacteremia - Likely Alpha Hemolytic Strep - Noted on 05/11 blood cultures at OSH - Repeat blood cultures NGTD - Continue antibiotics per ID - ID consulted - Vancomycin stopped per ID; continue cefrtriaxone - Plan for HSAMEKA on 07/26 to r/o vegetations; unable to complete today d/t patient mentation Acute Hypoxic Respiratory Failure 2/2 Acute on Chronic CHF Exacerbation (Improving) Troponin Elevation Presumed NSTEMI Type II likely 2/2 CHF Exacerbation Acute on Chronic CHF Exacerbation (Improving) - EKG from admission w/ afib - Troponin trended: 0.297 --> 0.338 --> 0.317 --> 0.260 - tele - Cardiology consulted, no testing for NSTEMI indicated they state that troponin elevation is most likely demand type II - BNP 959 - ECHO completed on 07/21/20 with EF 60%, no LV regional wall motion abnormalities - CXR with mild to moderate pulmonary vascular congestion - Lasix 40 mg IV daily; decreased from BID on 07/23/20 per cardiology recs - Continue BiPAP for now, wean per RT DEVANTE on CKD Stage III - Cr 1.76 on 07/23 - Baseline Cr 1.4-1.5 - Possibly cardiorenal - Lasix decreased to BID - Hold losartan - Monitor vanc troughs - Continue treatment as above - Continue to trend Mild COPD Exacerbation ?CAP, Asp PNA - Continue formoterol BID - Continue atrovent - Continue ceftriaxone - Continue azithromycin - Continue COPD RT Protocol Presumed UTI - UA with pyuria and leuk esterase - Urine culture no growth, blood culture NGTD - Continue ceftriaxone HTN - Continue amlodipine 10 mg daily - Continue clonidine 0.1 mg BID - Hold losartan - Start hydralazine 25mg BID until renal function improves Mild Dementia Mood Disorder - Continue donepezil - Continue mirtazapine 15mg qhs Chronic Atrial Fibrillation - Eliquis resumed 07/22 per neurosurgery recs - EKG with afib HLD - Continue crestor BPH - Continue tamsulosin DMII - Home regimen glargine 40 U - Patient with noted hypoglycemia on admission - Glargine increased to 15U daily - Sliding scale, hypoglycemia protocol KAREY on CPAP - Continue NIV qhs Hypokalemia - Replete PRN Fluids: N/A Electrolytes: Replete PRN Nutrition: Cardiac, 2L fluid restriction GI: N/A DVT Prophylaxis: Eliquis Dispo: Pending medical stability CODE STATUS: FULL CODE Interval History - Mentation at baseline - Denied CP, + SOB - UOP 2.3L in last 24; Net neg 8.2L since adm Review of Systems Review of Systems Constitutional: Negative. HENT: Negative. Respiratory: Positive for shortness of breath. Cardiovascular: Negative. Gastrointestinal: Negative. Musculoskeletal: Negative. Neurological: Positive for weakness. Psychiatric/Behavioral: Negative. Physical Exam Vital Signs: Temp: 98.8 F (37.1 C) | BP: 159/70 | Pulse: 65 | Resp: 30 | Pain Ratin (out of 10) | Weight: (!) 138.7 kg (305 lb 12.8 oz) | O2 Device: BiPAP O2 Flow Rate (L/min): 2 l/min | SpO2: 99 % Maximum Temperatures (last 24 hours) Temperature Maximum Max Temp 99 F (37.2 C) Intake and Output: 07/23 0700 - 07/24 0659 In: 570 [Oral:570] Out: 2300 [Urine:2300] Physical Exam Constitutional: Appearance: Normal appearance. HENT: Head: Atraumatic. Mouth/Throat: Mouth: Mucous membranes are moist. Eyes: Extraocular Movements: Extraocular movements intact. Cardiovascular: Rate and Rhythm: Rhythm irregular. Pulmonary: Effort: Pulmonary effort is normal. Comments: Diminished breath sounds Abdominal: Palpations: Abdomen is soft. Musculoskeletal: Normal range of motion. Skin: General: Skin is warm. Neurological: General: No focal deficit present. Mental Status: He is alert. Psychiatric: Mood and Affect: Mood normal. Behavior: Behavior normal. Labs Labs (Last day) 07/24/20 0926 - 07/24/20 09 CBC 07/24/20 0926 CBC WBC 4.0-11.0 (K/uL) 10.5 RBC 4.40-5.80 (M/uL) 4.29 Hemoglobin 13.5-17.5 (g/dL) 13.0 Hematocrit 40.0-50.0 (%) 40.3 MCV 80.0-98.0 (fL) 93.9 MCH 25.5-34.0 (pg) 30.3 MCHC 31.5-36.5 (g/dL) 32.3 RDW-CV 11.5-15.5 (%) 13.8 RDW-SD 35.5-50.0 (fl) 47.8 Platelet Count 140-400 (K/uL) 204 MPV 8.5-12.0 (fL) 10.6 07/24/20 0540 - 07/23/20 1203 GLUCOSE POINT OF CARE 07/24/20 0540 07/23/20 2107 07/23/20 1727 07/23/20 1203 GLUCOSE POINT OF CARE Glucose POC 70-99 (mg/dL) 171 171 227 206 Medical Decision making MDM Reviewed: previous chart, nursing note and vitals Shellie Fraga MD - 07/23/2020 4:42 PM CDT INFECTIOUS DISEASE PROGRESS Impression - Gram positive cocci bacteremia - likely alpha hemolytic Streptococcus - NSTEMI - Small subarachnoid bleed Plan - Continue Ceftriaxone 2g IV daily - Discontinue IV Vancomycin -SHAMEKA ordered for Sunday - Follow cultures Shellie Fraga MD Infectious Disease Pager [phone] Interval History Shortness of breath overnight He is on bipap today Afebrile overnight Chest xray shows persistent pulmonary vascular congestion and streaky right infrahilar opacity likely atelectasis Antibiotics Antibiotics (From admission, onward) Start Stop Route Frequency Ordered 07/22/20 2200 vancomycin (VANCOCIN) 2,000 mg in sodium chloride 0.9% 500 mL (Locked) -- IV Every twenty four hours 07/22/20 2133 07/22/20 1600 cefTRIAXone (ROCEPHIN) 2000 mg/20 mL IV syringe in sterile water -- IV Every twenty four hours 07/22/20 1557 07/22/20 1430 vancomycin (VANCOCIN) 2,000 mg in sodium chloride 0.9% 500 mL (Locked) Status: Discontinued 07/22 141 IV Every eighteen hours 07/22/20 1414 07/22/20 1415 vancomycin therapy reminder Status: Discontinued 07/22 2132 MISC Upon permission 07/22/20 14107/21/20 1900 vancomycin (VANCOCIN) 2,000 mg in sodium chloride 0.9% 500 mL (Locked) Status: Discontinued 07/22 1321 IV Every eighteen hours 07/21/20 1821 07/21/20 1330 cefTRIAXone (ROCEPHIN) 1000 mg/10 mL IV syringe in sterile water Status: Discontinued 07/22 1557 IV DAILY 07/21/20 1222 07/21/20 1330 azithromycin (ZITHROMAX) tablet 500 mg 07/23 0801 PO Daily 07/21/20 1222 All other medications reviewed in Epic. Physical Exam Current Vital Signs Temp: 98.9 F (37.2 C) BP: 130/60 Pulse: 56 O2 Device: NC - no humidity O2 Flow Rate (L/min): 1.5 l/min Resp: 18 Pain Ratin (out of 10) Weight: (!) 139.5 kg (307 lb 8 oz) SpO2: 99 % Maximum Temperatures (last 24 hours) Temperature Maximum Max Temp 99.7 F (37.6 C) Physical Exam General: cooperative, no distress HEENT: On bipap Lungs: Decreased breath sounds bilaterally Heart: irregular, no audible murmurs Abdomen: soft, no tenderness Msk: no swelling of joints, no edema Skin: no suspicious rashes Neuro: Alert, follows come commands Microbiology BLOOD: 07/21/20 - No growth till date 07/21/20 - Gram positive cocci ( ? alpha Streptococcus) - outside facility Labs and Imaging Estimated Creatinine Clearance: 42.6 mL/min (A) (based on SCr of 1.76 mg/dL (H)). Lab Results Component Value Date WBC 14.7 (H) 07/23/2020 NUCRBC 0 07/22/2020 RBC 4.12 (L) 07/23/2020 HEMOGLOBIN 12.9 (L) 07/23/2020 HEMATOCRIT 38.8 (L) 07/23/2020 MCV 94.2 07/23/2020 MCH 31.3 07/23/2020 MCHC 33.2 07/23/2020 PLTCOUNT 176 07/23/2020 NEUTROPCT 83.2 07/22/2020 BANDPCT 2.0 01/18/2016 LYMPHSPCT 5.4 07/22/2020 MONOSPCT 6.9 07/22/2020 EOSPCT 3.4 07/22/2020 BASOPHILPCT 0.5 07/22/2020 Lab Results Component Value Date GLUCOSE 206 (H) 07/23/2020 BUN 44 (H) 07/23/2020 CREATSERUM 1.76 (H) 07/23/2020 BCRATIO 25.0 07/23/2020 NA 139 07/23/2020 POTASSIUM 3.6 07/23/2020 CL 98 (L) 07/23/2020 CO2 32 (H) 07/23/2020 CA 8.4 (L) 07/23/2020 PROTEINTOTAL 5.3 (L) 07/22/2020 ALBUMIN 3.0 (L) 07/22/2020 ALKPHOS 95 07/22/2020 AST 50 (H) 07/22/2020 ALT 35 07/22/2020 BILITOTAL 1.1 07/22/2020 Medical Decision Making Total unit / floor time 25 minutes. Over 50% of total time used in counseling and coordination of care. Ruth Etienne MD - 07/23/2020 4:31 PM CDT DAILY PROGRESS NOTE Stephen Haddad is a 79yr old male admitted on 07/21/2020 7:34 AM. Impression / Plan Mr. Haddad is a 79 year old gentleman with a past medical history significant for obesity, HTN, DMII, HLD, COPD/asthma, afib on AC, CKD stage III who presented as a direct admission from [facility] on 07/21/20 for evaluation of weakness and found to have acute CHF exacerbation and small SAH. Small SAH (Stable) Encephalopathy - Patient with noted fall at home on 07/20/20 - CT on admission with trace SAH - Neurosurgery consulted, repeat CT completed on 07/22 with stable SAH - OK to resume eliquis per neurosurgery and no need for anti-seizure medication - Encephalopathy likely in setting of underlying infection, hypoglycemia, and sundowning - Neuro checks q4h - Sitter GPC Bacteremia - Noted on 05/11 blood cultures at OSH - Repeat blood cultures NGTD - Continue antibiotics per ID - ID consulted - Plan for SHAMEKA on 07/26 to r/o vegetations; unable to complete today d/t patient mentation Acute Hypoxic Respiratory Failure 2/2 Acute on Chronic CHF Exacerbation Troponin Elevation Presumed NSTEMI Type II likely 2/2 CHF Exacerbation Acute on Chronic CHF Exacerbation - EKG from admission w/ afib - Troponin trended: 0.297 --> 0.338 --> 0.317 --> 0.260 - tele - Cardiology consulted, no testing for NSTEMI indicated they state that troponin elevation is most likely demand type II - BNP 959 - ECHO completed on 07/21/20 with EF 60%, no LV regional wall motion abnormalities - CXR with mild to moderate pulmonary vascular congestion - Lasix 40 mg IV daily; decreased from BID on 07/23/20 per cardiology recs - Continue BiPAP for now, wean per RT DEVANTE on CKD Stage III - Cr 1.76 on 07/23 - Baseline Cr 1.4-1.5 - Possibly cardiorenal - Lasix decreased to BID - Hold losartan - Monitor vanc troughs - Continue treatment as above - Continue to trend Mild COPD Exacerbation ?CAP, Asp PNA - Continue formoterol BID - Continue atrovent - Continue ceftriaxone - Continue azithromycin - Continue COPD RT Protocol Presumed UTI - UA with pyuria and leuk esterase - Urine culture, blood culture pending - Continue ceftriaxone HTN - Continue amlodipine 10 mg daily - Continue clonidine 0.1 mg BID - Hold losartan - Start hydralazine 25mg BID until renal function improves Mild Dementia Mood Disorder - Continue donepezil - Continue mirtazapine 15mg qhs Chronic Atrial Fibrillation - Eliquis resumed 07/22 per neurosurgery recs - EKG with afib HLD - Continue crestor BPH - Continue tamsulosin DMII - Home regimen glargine 40 U - Patient with noted hypoglycemia on admission - Glargine increased to 15U daily - Sliding scale, hypoglycemia protocol KAREY on CPAP - Continue NIV qhs Hypokalemia - Replete PRN Fluids: N/A Electrolytes: Replete PRN Nutrition: Cardiac, 2L fluid restriction GI: N/A DVT Prophylaxis: Eliquis Dispo: Pending medical stability CODE STATUS: FULL CODE Interval History - Fell from chair on 07/22; hip film neg for fracture - Patient altered overnight, received haldol ativan, zyprexa - Noted to have increased wheezing, crackles on exam, transitioned to BiPAP this AM with improved ease of breathing Review of Systems Review of Systems Constitutional: Negative. HENT: Negative. Respiratory: Negative. Cardiovascular: Negative. Gastrointestinal: Negative. Musculoskeletal: Negative. Neurological: Positive for weakness. Psychiatric/Behavioral: Negative. Physical Exam Vital Signs: Temp: 98.9 F (37.2 C) | BP: 130/60 | Pulse: 56 | Resp: 18 | Pain Ratin (out of 10) | Weight: (!) 139.5 kg (307 lb 8 oz) | O2 Device: NC - no humidity O2 Flow Rate (L/min): 1.5 l/min | SpO2: 99 % Maximum Temperatures (last 24 hours) Temperature Maximum Max Temp 99.7 F (37.6 C) Intake and Output: 07/22 0700 - 07/23 0659 In: 320 [Oral:320] Out: 2700 [Urine:2700] Physical Exam Constitutional: Appearance: Normal appearance. HENT: Head: Atraumatic. Mouth/Throat: Mouth: Mucous membranes are moist. Eyes: Extraocular Movements: Extraocular movements intact. Cardiovascular: Rate and Rhythm: Rhythm irregular. Pulmonary: Effort: Pulmonary effort is normal. Breath sounds: Wheezing present. Abdominal: Palpations: Abdomen is soft. Musculoskeletal: Normal range of motion. Skin: General: Skin is warm. Neurological: General: No focal deficit present. Mental Status: He is alert. Psychiatric: Mood and Affect: Mood normal. Behavior: Behavior normal. Labs Labs (Last day) 07/23/20 0648 - 07/23/20 0648 CBC 07/23/20 0648 CBC WBC 4.0-11.0 (K/uL) 14.7 RBC 4.40-5.80 (M/uL) 4.12 Hemoglobin 13.5-17.5 (g/dL) 12.9 Hematocrit 40.0-50.0 (%) 38.8 MCV 80.0-98.0 (fL) 94.2 MCH 25.5-34.0 (pg) 31.3 MCHC 31.5-36.5 (g/dL) 33.2 RDW-CV 11.5-15.5 (%) 13.9 RDW-SD 35.5-50.0 (fl) 48.0 Platelet Count 140-400 (K/uL) 176 MPV 8.5-12.0 (fL) 10.6 07/23/20 0648 - 07/23/20 0648 CHEMISTRY 07/23/20 0648 07/23/20 0648 07/23/20 0648 CHEMISTRY Glucose 70-100 (mg/dL) 257 Sodium 135-145 (meq/L) 139 Potassium 3.5-5.3 (meq/L) 3.6 Chloride 99-110 (meq/L) 98 CO2 20-29 (meq/L) 32 Anion Gap with K 6-20 (meq/L) 13 BUN 6-22 (mg/dL) 44 Creatinine 0.80-1.30 (mg/dL) 1.76 BUN/Creatinine Ratio 10.0-25.0 25.0 Calcium 8.5-10.5 (mg/dL) 8.4 Phosphorus 2.5-4.5 (mg/dL) 4.1 Magnesium 1.8-2.4 (mg/dL) 2.2 eGFR >=60 (mL/min/1.73m2) 45 eGFR Non- >=60 (mL/min/1.73m2) 37 07/23/20 1203 - 07/22/20 1715 GLUCOSE POINT OF CARE 07/23/20 1203 07/23/20 0545 07/22/20 2149 07/22/20 1715 GLUCOSE POINT OF CARE Glucose POC 70-99 (mg/dL) 206 262 246 212 07/22/20 2048 - 07/22/20 2048 THERAPEUTIC DRUGS MISC 07/22/20 2048 THERAPEUTIC DRUGS MISC Vancomycin Random (ug/mL) 6.4 07/23/20 0648 - 07/23/20 0648 OTHER 07/23/20 0648 OTHER Age (Years) 79 Medical Decision making Medical Decision Making Rin Carvalho MD - 07/23/2020 11:53 AM CDT Cardiology Hospital Progress Note Assessment / Plan Active Problems: Encephalopathy Resolved Problems: * No resolved hospital problems. * 1. Persistent atrial fibrillation with slow ventricular response, on chronic anticoagulation with Eliquis 2. Acute on chronic diastolic heart failure 3. NSTEMI type II likely from diastolic heart failure, CKD and SAH 4. Mild subarachnoid hemorrhage, stableneurosurgery agreed to restart Eliquis 79-year-old gentleman with a past medical history of atrial fibrillation on Eliquis, CKD stage III, diabetes mellitus type 2, COPD, hyperlipidemia, morbid obesity, hypertension [facility]. Patient also find out to have mild subarachnoidhemorrhage which was stable on repeat CT scan. Patient did not complaining any headache, no loss ofconsciousness. Neurosurgery was evaluated and cleared for continuation of chronic anticoagulation. Patient has mildly elevated troponin I 0.338 which is trended down 0.317 and 0.260. Patient does not have chest pain EKG showed atrial fibrillation rhythm with slow ventricular rate 58, wide QRS complex. Echocardiography showed normal left ventricular function with EF of 60% no regional wall motion abnormalities, trivial aortic regurgitation mild AAS, mild MS and mild TR mild pulmonary hypertensionwith a pulmonary artery pressure of 46 mmHg. Dilated IVC. In cardiology stand point - No chest pain, elevated troponin I likely from CKD, diastolic heart failure and SAH, his echocardiography showed normal EF with no significant regional wall motion abnormalities. Patient has gram positive bacteremia, ID following. Discussed with Dr. Etienne regarding cardiology plan of care. Plan -- Keep monitoring bradycardia- telemetry -- No testing for NSTEMI at this time, as unlikely type I, likely type II with diastolic heart failure, CKD and SAH. Troponin I trending down, no chest pain from patient. -- Continue eliquis, CHADVASC score 7, neurosurgery agreed for eliquis -- Cardiology will sign off, please call with questions HPI / History / ROS Stephen Haddad is a 79yr old male admitted on 07/21/2020. Review of Systems Constitutional: Positive for diaphoresis and fatigue. HENT: Negative. Eyes: Negative. Respiratory: Positive for shortness of breath. Cardiovascular: Negative. Gastrointestinal: Negative. Skin: Negative. Hematological: Negative. Psychiatric/Behavioral: Positive for confusion. Physical / Results Current Vital Signs Temp: 97.4 F (36.3 C) BP: 136/62 Weight: (!) 139.5 kg (307 lb 8 oz) SpO2: 100 % Resp: 29 Pulse: 60 Current BMI (>50 = increased risk): (!) 36.58 O2 Device: BiPAP O2 Flow Rate (L/min): 2 l/min Pain Ratin Maximum Temperatures (last 24 hours) Temperature Maximum Max Temp 99.7 F (37.6 C) Physical Exam Constitutional: He appears acutely ill. HENT: Mouth/Throat: Oropharynx is clear. Eyes: Pupils are equal, round, and reactive to light. Neck: Normal range of motion. Cardiovascular: Normal rate, S1 normal, S2 normal and normal heart sounds. An irregularly irregular rhythm present. Pulmonary/Chest: Breath sounds normal. He has no wheezes. He has no rales. He exhibits no tenderness. Abdominal: Soft. Musculoskeletal: Normal range of motion. Neurological: He is alert. Medical Decision Making I have: Ordered laboratory, radiology or other diagnostic tests. Independently visualized and interpreted an image, tracing or specimen previously or subsequently interpreted by another provider. Discussed results of laboratory, radiology or other diagnostic tests with the physician who performed or interpreted the study. Yadiel Montanez MD PGY3 Internal Medicine Resident [facility]/ [facility] Pager: [phone] Associated attestation - Fanny Hernandez MD - 07/23/2020 3:53 PM CDT I discussed the patient with the resident and personally interviewed and examined the patient. I verified in the medical record all resident documentation/findings, including history, physical exam, and medical decision making, and I agree with the resident's documentation.Ruth Etienne MD - 07/22/2020 12:57 PM CDT DAILY PROGRESS NOTE Stephen Haddad is a 79yr old male admitted on 07/21/2020 7:34 AM. Impression / Plan Mr. Haddad is a 79 year old gentleman with a past medical history significant for obesity, HTN, DMII, HLD, COPD/asthma, afib on AC, CKD stage III who presented as a direct admission from [facility] on 07/21/20 for evaluation of weakness and found to have acute CHF exacerbation and small SAH. Small SAH (Stable) Encephalopathy (Resolved) - Patient with noted fall at home on 07/20/20 - CT on admission with trace SAH - Neurosurgery consulted, repeat CT completed on 07/22 with stable SAH - OK to resume eliquis per neurosurgery and no need for anti-seizure medication - Encephalopathy likely in setting of underlying infection, hypoglycemia - Neuro checks q4h Troponin Elevation Presumed NSTEMI Type II likely 2/2 CHF Exacerbation Acute on Chronic CHF Exacerbation - EKG from admission w/ afib - Troponin trended: 0.297 --> 0.338 --> 0.317 --> 0.260 - tele - Cardiology consulted, appreciate recs - BNP 959 - ECHO completed on 07/21/20 with EF 60%, no LV regional wall motion abnormalities - CXR with mild to moderate pulmonary vascular congestion - Continue lasix 40mg IV BID DEVANTE on CKD Stage III - Cr 1.66 on 07/22 - Baseline Cr 1.4-1.5 - Possibly cardiorenal component given volume overload - Continue treatment as above - Continue to trend Mild COPD Exacerbation ?CAP, Asp PNA - Continue formoterol BID - Continue atrovent - Continue ceftriaxone - Continue azithromycin - Blood and urine cultures pending - Continue COPD RT Protocol GPC Bacteremia - Noted on 22 blood cultures at OSH - Repeat blood cultures PENDING - Continue vancomycin - ID consult Presumed UTI - UA with pyuria and leuk esterase - Urine culture, blood culture pending - Continue ceftriaxone HTN - Continue amlodipine 10 mg daily - Continue clonidine 0.1 mg BID - Continue losartan 100 mg daily Mild Dementia Mood Disorder - Continue donepezil - Continue mirtazapine 15mg qhs Chronic Atrial Fibrillation - Eliquis resumed 07/22 per neurosurgery recs - EKG with afib HLD - Continue crestor BPH - Continue tamsulosin DMII - Home regimen glargine 40 U - Patient with noted hypoglycemia on admission - BG now in 300s - Start with glargine 10 U daily and uptitrate as tolerated - Sliding scale, hypoglycemia protocol Hypokalemia - Replete PRN Fluids: N/A Electrolytes: Replete PRN Nutrition: Cardiac, 2L fluid restriction GI: N/A DVT Prophylaxis: Eliquis Dispo: Pending medical stability CODE STATUS: FULL CODE; confirmed with patient Interval History - Mentation back to baseline this AM - No RILEY, no CP or SOB - No acute events overnight Review of Systems Review of Systems Constitutional: Negative. HENT: Negative. Respiratory: Negative. Cardiovascular: Negative. Gastrointestinal: Negative. Musculoskeletal: Negative. Neurological: Positive for weakness. Psychiatric/Behavioral: Negative. Physical Exam Vital Signs: Temp: 98.9 F (37.2 C) | BP: 143/67 | Pulse: 49 | Resp: 18 | Pain Ratin (out of 10) | Weight: (!) 144.8 kg (319 lb 3.2 oz) | O2 Device: Room Air O2 Flow Rate (L/min): 1 l/min | SpO2: 96 % Maximum Temperatures (last 24 hours) Temperature Maximum Max Temp 101.2 F (38.4 C) Intake and Output: 07/21 0700 - 07/22 0659 In: 150 Out: 4240 [Urine:4240] Physical Exam Constitutional: Appearance: Normal appearance. HENT: Head: Atraumatic. Mouth/Throat: Mouth: Mucous membranes are moist. Eyes: Extraocular Movements: Extraocular movements intact. Cardiovascular: Rate and Rhythm: Rhythm irregular. Pulmonary: Effort: Pulmonary effort is normal. Breath sounds: Wheezing present. Abdominal: Palpations: Abdomen is soft. Musculoskeletal: Normal range of motion. Skin: General: Skin is warm. Neurological: General: No focal deficit present. Mental Status: He is alert. Psychiatric: Mood and Affect: Mood normal. Behavior: Behavior normal. Labs Labs (Last day) 07/22/20 1121 - 07/21/20 1524 CARDIAC MARKERS 07/22/20 1121 07/21/20 1524 CARDIAC MARKERS Troponin I 0.000-0.028 (ng/mL) 0.260 0.317 07/22/20 1121 - 07/22/20 1121 CBC 07/22/20 1121 CBC WBC 4.0-11.0 (K/uL) 12.5 RBC 4.40-5.80 (M/uL) 4.24 Hemoglobin 13.5-17.5 (g/dL) 13.1 Hematocrit 40.0-50.0 (%) 39.6 MCV 80.0-98.0 (fL) 93.4 MCH 25.5-34.0 (pg) 30.9 MCHC 31.5-36.5 (g/dL) 33.1 RDW-CV 11.5-15.5 (%) 14.1 RDW-SD 35.5-50.0 (fl) 48.2 Platelet Count 140-400 (K/uL) 167 MPV 8.5-12.0 (fL) 10.4 07/22/20 1121 - 07/22/20 1121 CHEMISTRY 07/22/20 1121 07/22/20 1121 CHEMISTRY Glucose 70-100 (mg/dL) 302 Sodium 135-145 (meq/L) 135 Potassium 3.5-5.3 (meq/L) 3.3 Chloride 99-110 (meq/L) 98 CO2 20-29 (meq/L) 26 Anion Gap with K 6-20 (meq/L) 14 BUN 6-22 (mg/dL) 38 Creatinine 0.80-1.30 (mg/dL) 1.66 BUN/Creatinine Ratio 10.0-25.0 22.9 Calcium 8.5-10.5 (mg/dL) 8.1 Bilirubin Total 0.2-1.2 (mg/dL) 1.1 Bilirubin Direct 0.0-0.4 (mg/dL) 0.4 Bilirubin Indirect 0.0-0.8 (mg/dL) 0.7 Alkaline Phosphatase 30-150 (U/L) 95 ALT - SGPT 0-55 (U/L) 35 AST - SGOT 0-35 (U/L) 50 Protein Total 6.0-8.2 (g/dL) 5.3 Albumin 3.5-5.0 (g/dL) 3.0 eGFR >=60 (mL/min/1.73m2) 48 eGFR Non- >=60 (mL/min/1.73m2) 40 07/22/20 1121 - 07/22/20 1121 DIFFERENTIAL 07/22/20 1121 DIFFERENTIAL Seg Neut Absolute 1.8-8.0 (K/uL) 10.4 Lymphocytes Absolute 0.8-4.1 (K/uL) 0.7 Monocytes Absolute 0.0-1.0 (K/uL) 0.9 Eosinophils Absolute 0.0-0.7 (K/uL) 0.4 Basophil Absolute 0.0-0.2 (K/uL) 0.1 Immature Granulocyte Absolute 0.00-0.06 (K/uL) 0.08 Neutrophils Percent (%) 83.2 Neutrophils Abs. (Segs and Bands) (/uL) 10,400 Lymphocytes Percent (%) 5.4 Monocytes Percent (%) 6.9 Immature Granulocyte Percent (%) 0.6 Eosinophils Percent (%) 3.4 Basophil Percent (%) 0.5 Nucleated RBC (/100 WBC's) 0 07/22/20 1118 - 07/21/20 1721 GLUCOSE POINT OF CARE 07/22/20 1118 07/22/20 0702 07/21/20 2102 07/21/20 1721 GLUCOSE POINT OF CARE Glucose POC 70-99 (mg/dL) 294 152 186 147 07/22/20 0308 - 07/22/20 0308 URINALYSIS 07/22/20 0308 07/22/20 0308 URINALYSIS Color Urine Esequiel, Dark Yellow, Straw, Yellow, Colorless Straw Clarity Urine Clear Clear Specific [place] 1.002-1.030 1.012 Glucose Urine Negative 50 mg/dL Bilirubin Urine Negative Negative Ketones Urine Negative, 5 mg/dL, 10 mg/dL Negative Blood Urine Negative Moderate (2+) PH Urine 5.0, 5.5, 6.0, 6.5, 7.0, 7.5, 8.0 5.5 Protein Urine Negative >= 300 mg/dL Nitrite Negative Negative Leukocyte Esterase Urine Negative Trace Urobilinogen < 2 mg/dL < 2 mg/dL WBC Urine Negative, 0-5 /hpf 6-10 /hpf RBC Urine Negative, 0-2 /hpf >30 /hpf Squamous Epithelial Cells Negative, Occ (0-10) /lpf, Few (11-20) /lpf Moderate (21-50) /lpf Bacteria Negative Negative Hyaline Cast 0-2 /lpf 6-10 /lpf Granular Cast Negative 0-2 /lpf 07/22/20 1121 - 07/21/20 1611 OTHER 07/22/20 1121 07/21/20 1611 07/21/20 1611 07/21/20 1611 OTHER Age (Years) 79 Legionella Antigen Urine Presumptive Negative Presumptive Negative MRSA by NAD, Nasal Not Detected Not Detected Strep pneumoniae Urine Antigen Presumptive Negative Presumptive Negative Medical Decision making Medical Decision Making eKalen murillo MD - 07/22/2020 11:14 AM CDT79 yo on Eliquis fell off side of high bed last evening 07/20/20, hitting head but with no LOC. [facility] concerned about cardiac status and transferred to [facility]. Eliquis stopped. CT head shows right temporal lobe 4 mm hyperdensity potentially representing acute tiny subarachnoid hemorrhage. He had AF on Coumadin when had stroke last year. Then switched to Eliquis. Stroke left him slowed cognition, and intermittent right hand tingling. S: Feels well. Ambulated with assistance. Soon and at bedside. O: Speech clear. No facial droop. No pronator drift. Negative Babinskis. CT head 07/22/20: 1. Stable punctate focus of high attenuation in the right lateral temporal lobe suspicious for a very small subarachnoid hemorrhage. 2. Stable moderate to severe chronic small vessel ischemic disease changes, generalized parenchymal volume loss. A: Tiny right tempora possible SAH is stable. P: No further CT scans required, now or later.Can restart Eliquis. No need for anti-seizure medication. Follow up with PCP. Pranav Hamilton, PHARM D - 07/21/2020 6:22 PM CDT Vancomycin Initial Consult Note Mr. Haddad was admitted on 07/21/2020 and today has been initiated on Vancomycin per pharmacy protocol for GPC on 05/11 BC from OSH. Labs: No results found for: VANCOTROUGH WBC Date/Time Value Ref Range Status 07/21/2020 08:30 AM 22.6 (H) 4.0 - 11.0 K/uL Final 02/27/2019 09:50 AM 7.6 4.0 - 11.0 K/uL Final 09/03/2014 04:02 PM 7.1 4.0 - 11.0 K/uL Final 03/27/2013 02:38 PM 5.9 4.0 - 11.0 K/uL Final Lab Results Component Value Date CREATSERUM 1.40 (H) 07/21/2020 Cultures: 07/21 BC x2 from OS - GPC on 05/11 Max Temperature: Temp (24hrs), Av.7 F (37.6 C), Min:98.7 F (37.1 C), Max:100.1 F (37.8C) Estimated CrCl: Estimated Creatinine Clearance: 53.5 mL/min (A) (based on SCr of 1.4 mg/dL (H)). ml/min Intake/Output: Intake/Output Summary (Last 24 hours) at 07/21/2020 1822 Last data filed at 07/21/2020 0900 Gross per 24 hour Intake 150 ml Output Net 150 ml Other Active Antimicrobial Agents: Plan: We have initiated intravenous Vancomycin therapy at a dose of 2000 mg every 18 hours. The goal trough range will be 15-20 mcg/ml. Pharmacy will monitor and if indicated, adjust dose and/or frequency per the Pharmacy and Therapeutics Committee approved pharmacokinetic service policy. Thank you very much for the consult. We will continue to follow along with you. Pranav Alamo, PHARM D Terell Merritt, PHARM STUDENT - 07/21/2020 10:52 AM CDT 07/21/2020 10:52 AM CDT - Patient's pharmacy/chart were reviewed by pharmacy. HOME MEDICATIONS have been reconciled and updated to match the patient's home usage. Medications added: None Medications removed: None Medications changed: None Prior to Admission Medications Prescriptions Last Dose Informant Patient Reported? Taking? B Complex Vitamins (B COMPLEX PO) Yes No Sig: Take by mouth Lyebeqmwuju-Uxwdoopah-Gao C-Mn (GLUCOSAMINE-CHONDROITIN) capsule No No Sig: Take 1 capsule by mouth 1 time per day Take by mouth 1 time per day. Loperamide HCl (IMODIUM PO) Yes No Sig: Take 1 capsule by mouth 1 time per day UNIFINE PENTIPS 31G X 8 MM Short No No Sig: USE DIRECTED WITH LANTUS Zinc (ZINC) 50 MG CAPS Yes No Sig: Take 50 mg by mouth 1 time per day acetaminophen (TYLENOL) 500 mg tablet No No Sig: Take 1-2 tablets (500-1,000 mg) by mouth Every 4 hours as needed for moderate pain amLODIPine (NORVASC) 10 mg tablet last filled 06/14/20 No Yes Sig: TAKE ONE TABLET BY MOUTH ONE TIME DAILY GENERIC NORVASC apixaban (ELIQUIS) 5 MG tablet Unknown at Unknown time No Yes Sig: Take 1 tablet (5 mg) by mouth 2 times a day Indications: Venous Thromboembolism Patient taking differently: Take 10 mg by mouth 2 times a day Indications: Venous Thromboembolism calcium-vitamin D (OSCAL 500 + VITAMIN D) 500 mg-200 units TABS tablet No No Sig: Take 1 tablet by mouth 1 time per day Take by mouth 1 time per day. cloNIDine (CATAPRES) 0.1 mg tablet last filled 07/15/20 No Yes Sig: TAKE ONE TABLET BY MOUTH EVERY MORNING AND TWO TABLETS EVERY EVENING donepezil (ARICEPT) 10 mg tablet last filled 06/23/20 No Yes Sig: Take 2 tablets (20 mg) by mouth 1 time a day in the morning furosemide (LASIX) 40 mg tablet last filled 06/23/20 No Yes Sig: TAKE ONE TABLET (40 MG) BY MOUTH ONCE DAILY insulin glargine (BASAGLAR) subcutaneous injection (pen) last filled No Yes Sig: INJECT 40 UNITS UNDER THE SKIN ONCE A DAY mirtazapine (REMERON) 15 mg tablet last fill 07/02/20 No Yes Sig: Take 1 tablet (15 mg) by mouth every night at bedtime multivitamin/lutein (PROSIGHT;OCUVITE-LUTEIN) capsule Yes No Sig: Take 1 capsule by mouth 1 time per day olmesartan (BENICAR) 40 mg tablet last filled 07/15/20 No Yes Sig: TAKE ONE TABLET (40 MG) BY MOUTH ONCE DAILY potassium chloride (KLOR-CON M20) 20 MEQ CR tablet last filled 07/15/20 No Yes Sig: TAKE ONE TABLET (20 MEQ) BY MOUTH ONCE DAILY rosuvastatin (CRESTOR) 40 mg tablet last fill 07/16/20 No Yes Sig: Take 1 tablet (40 mg) by mouth 1 time per day sulfaSALAzine (AZULFIDINE) 500 mg tablet last filled 07/16/20 No Yes Sig: TAKE 1 TABLET (500 MG) BY MOUTH 2 TIMES A DAY WITH MEALS tamsulosin (FLOMAX) 0.4 mg capsule last filled 07/15/20 No Yes Sig: TAKE ONE CAPSULE (0.4 MG) BY MOUTH ONCE DAILY GENERIC FLOMAX Facility-Administered Medications: None Terell Merritt, PHARM STUDENT Associated attestation - [facility] - 07/21/2020 1:10 PM [facility] notes state that Mr Haddad's apixaban dose is 10mg twice daily. After some investigation and discussion with Dr Kumar, I believe this was a charting error, and that his current correct dose of apixaban is 5mg twice daily for a-fib.documented in this encounter H&P Notes Mita Kumar MD - 07/21/2020 8:14 AM CDT Hospital Admission History and Physical Assessment / Plan Mr. Haddad is a 79-year-old male with past medical history of obesity hypertension diabetes mellitus type 2 dyslipidemia COPD/asthma chronic atrial fibrillation on Eliquis CKD stage III who came in as a direct admit from [facility]. he presented there overnight with weakness lower extremi ty swelling and fall at home without loss of consciousness and hitting the head when he tried to getout of his bed per signout from the ER doc. At outside hospital he was confused NIH stroke scale was 7 they tried to do a CT head but he was not cooperative EKG showed atrial fibrillation with right bundle branch block with a rate 70-100. Blood pressure was 161/75 pulse 67 respiration 36 [id number] he required 1 L oxygen to keep saturations above 90. Labs at outside hospital showed lactic acid 1.4 creatinine 1.6 with a baseline creatinine of 1.4-1.5, AST/ALT within range troponin was elevated at 71.6 the normal baseline is 460, BNP pro was elevated at 3000 Covid test was negative white count 18.2 hemoglobin 15 platelet count 239 potassium 4.5 glucose 96. Chest x-ray showed congestion UA was clean Cotton catheter was placed in the ER he was given Lasix 40 mg IV x1 Zaroxolyn 5 mg oral x1 Ativan 1 mg IV x1 hydralazine 20 mg IV x1. Per CODE STATUS discussion there he was full code blood cultures were drawn x2. In route he was hypoglycemic withblood sugar 65 for which she was given 150 mL of D5 which brought it up to 80 Upon arrival here he was confused blood sugar was not 60 he required 1 L oxygen blood pressure 154/77 temperature 100.1 weight 143 kg #Acute encephalopathy #Hypoglycemia #NSTEMI # sepsis #Acute on chronic diastolic CHF exacerbation #Mild COPD exacerbation cannot be ruled out #History of stroke, baseline left-sided weakness per signout. cognitive dysfunction/ dementia We will give D50 x1, will do neuro checks, NIH stroke scale will order a stat CT head as he is onEliquis, initiate antibiotics, IV diuretics, EKG Telemetry Echocardiogram ordered PT OT and speech therapy consulted Covid test is negative MRSA nasal swab will do antibiotics given elevated with white count, temp of 100.8 at outside hospital. Check procalcitonin and CRP. Follow OSH blood cultures. UA #Chronic atrial fibrillation #On Eliquis at home #History of stroke If CT head is negative for any bleed will resume Eliquis EKG repeated shows A. fib rate controlled at the moment Resume statins Therapies ordered #Diabetes mellitus type 2 with hypoglycemia Patient is not able to tell when his last dose of glargine was we will try to call will hold insulin for now and will give D50 x1 with Accu-Cheks Add insulin as tolerated #Dyslipidemia continue Crestor #BPH resume home dose of Flomax #Dementia resume Aricept #Anxiety and depression resume Remeron #Hypertension resume amlodipine Clonidine Benicar CODE STATUS is full code per discussion by ER provider at [place]. Patient is confused phone call placed to who did not picker tender helper. Needs to be addressed when is available DVT prophylaxis sequential pumps for now Addendum Small subarachnoid hge noted on CT eliquis held Neurosurgery consulted -Will get repeat CT head no contrast in AM 4/15/21. If no increase in size, then no further head CT scans needed now or later, and could restart Eliquis. No need for anti-seizuremedication. Keep bp ideally below 140/90 prns ordered Fall risk HPI / History / ROS HPI Patient is confused knows his name and he is in [place] but is not able to tell his date of and why he is here and what happened at home Mr. Haddad is a 79-year-old male with past medical history of obesity hypertension diabetes mellitus type 2 dyslipidemia COPD/asthma chronic atrial fibrillation on Eliquis CKD stage III who came in as a direct admit from [facility]. he presented there overnight with weakness lower extremi ty swelling and fall at home without loss of consciousness and hitting the head when he tried to getout of his bed per signout from the ER doc. At outside hospital he was confused NIH stroke scale was 7 they tried to do a CT head but he was not cooperative EKG showed atrial fibrillation with right bundle branch block with a rate 70-100. Blood pressure was 161/75 pulse 67 respiration 36 [id number] he required 1 L oxygen to keep saturations above 90. Labs at outside hospital showed lactic acid 1.4 creatinine 1.6 with a baseline creatinine of 1.4-1.5, AST/ALT within range troponin was elevated at 71.6 the normal baseline is 460, BNP pro was elevated at 3000 Covid test was negative white count 18.2 hemoglobin 15 platelet count 239 potassium 4.5 glucose 96. Chest x-ray showed congestion UA was clean Cotton catheter was placed in the ER he was given Lasix 40 mg IV x1 Zaroxolyn 5 mg oral x1 Ativan 1 mg IV x1 hydralazine 20 mg IV x1. Per CODE STATUS discussion there he was full code blood cultures were drawn x2. In route he was hypoglycemic withblood sugar 65 for which she was given 150 mL of D5 which brought it up to 80 Upon arrival here he was confused blood sugar was not 60 he required 1 L oxygen blood pressure 154/77 temperature 100.1 weight 143 kg History Patient Active Problem List Diagnosis Essential hypertension Obesity Controlled type 2 diabetes mellitus with diabetic polyneuropathy, with long- term current use of insulin (HCC) Peripheral autonomic neuropathy in disorders classified elsewhere(337.1) Hyperlipidemia associated with type 2 diabetes mellitus (HCC) Screening for eye condition COPD with asthma (HCC) Chronic atrial fibrillation (HCC) S/P total knee arthroplasty Edema of lower extremity Pre-ulcerative corn or callous Basal cell carcinoma of nose Hydrocele, left Scrotal hematoma assisted current use of anticoagulant therapy Acne rosacea Primary osteoarthritis of right hip Chronic renal failure, stage 3 (moderate) ([facility]) Impacted cerumen, right ear Carcinoma in situ of colon Polyp of colon, adenomatous 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, bilateral 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 MOTION (background diabetic retinopathy) ([facility]) Anterior uveitis On apixaban therapy Pseudophakia - Both Raised intraocular pressure of both eyes Prior to Admission Medications Prescriptions Last Dose Informant Patient Reported? Taking? B Complex Vitamins (B COMPLEX PO) Yes No Sig: Take by mouth Qfkjzrtkvvp-Eqltckala-Ajg C-Mn (GLUCOSAMINE-CHONDROITIN) capsule No No Sig: Take 1 capsule by mouth 1 time per day Take by mouth 1 time per day. Loperamide HCl (IMODIUM PO) Yes No Sig: Take 1 capsule by mouth 1 time per day UNIFINE PENTIPS 31G X 8 MM Short No No Sig: USE DIRECTED WITH LANTUS Zinc (ZINC) 50 MG CAPS Yes No Sig: Take 50 mg by mouth 1 time per day acetaminophen (TYLENOL) 500 mg tablet No No Sig: Take 1-2 tablets (500-1,000 mg) by mouth Every 4 hours as needed for moderate pain amLODIPine (NORVASC) 10 mg tablet No No Sig: TAKE ONE TABLET BY MOUTH ONE TIME DAILY GENERIC NORVASC apixaban (ELIQUIS) 5 MG tablet No No Sig: Take 1 tablet (5 mg) by mouth 2 times a day Indications: Venous Thromboembolism calcium-vitamin D (OSCAL 500 + VITAMIN D) 500 mg-200 units TABS tablet No No Sig: Take 1 tablet by mouth 1 time per day Take by mouth 1 time per day. cloNIDine (CATAPRES) 0.1 mg tablet No No Sig: TAKE ONE TABLET BY MOUTH EVERY MORNING AND TWO TABLETS EVERY EVENING donepezil (ARICEPT) 10 mg tablet No No Sig: Take 2 tablets (20 mg) by mouth 1 time a day in the morning furosemide (LASIX) 40 mg tablet No No Sig: TAKE ONE TABLET (40 MG) BY MOUTH ONCE DAILY insulin glargine (BASAGLAR) subcutaneous injection (pen) No No Sig: INJECT 40 UNITS UNDER THE SKIN ONCE A DAY mirtazapine (REMERON) 15 mg tablet No No Sig: Take 1 tablet (15 mg) by mouth every night at bedtime multivitamin/lutein (PROSIGHT;OCUVITE-LUTEIN) capsule Yes No Sig: Take 1 capsule by mouth 1 time per day olmesartan (BENICAR) 40 mg tablet No No Sig: TAKE ONE TABLET (40 MG) BY MOUTH ONCE DAILY potassium chloride (KLOR-CON M20) 20 MEQ CR tablet No No Sig: TAKE ONE TABLET (20 MEQ) BY MOUTH ONCE DAILY rosuvastatin (CRESTOR) 40 mg tablet No No Sig: Take 1 tablet (40 mg) by mouth 1 time per day sulfaSALAzine (AZULFIDINE) 500 mg tablet No No Sig: TAKE 1 TABLET (500 MG) BY MOUTH 2 TIMES A DAY WITH MEALS tamsulosin (FLOMAX) 0.4 mg capsule No No Sig: TAKE ONE CAPSULE (0.4 MG) BY MOUTH ONCE DAILY GENERIC FLOMAX Facility-Administered Medications: None No Known Allergies Past Medical History: Diagnosis Date Astigmatism of both eyes Atrial fibrillation (HCC) Cataract senile - OU Chronic renal failure, stage 3 (moderate) 08/17/2016 COPD (chronic obstructive pulmonary disease) ([facility]) uses inhaler COPD with asthma ([facility]) CVA (cerebral vascular accident) ([facility]) 05/09/2019 DM (diabetes mellitus) type II controlled, neurological manifestation ([facility]) Fall hurt knee wraps with gary happened in 05-28-2014 Fall at home History of radiation therapy 30 treatments cancer inside of nose Hydrocele, left Hypercholesterolemia Hyperlipidemia Hypertension history of Morbid obesity ([facility]) Neuropathy, peripheral Osteoporosis Posterior uveitis, bilateral 07/15/2019 Presbyopia OU Primary osteoarthritis of right hip 12/01/2015 Skin cancer basal cell SOB (shortness of breath) Past Surgical History: Procedure Laterality Date ANES TOTAL SHOULDER Right total shoulder ARTHROPLASTY KNEE CONDYLE & PLATEAU MEDIAL & LAT COMPARTMENTS WWO PAT Bilateral 2012 Knee replacement, total CATARACT EXTRACTION CHOLECYSTECTOMY 1999 Lap EYE SURGERY Right cataract, needs left done HERNIA REPAIR inguinal HYDROCELE SPERMATOCELE Left 06/25/2014 Procedure: LEFT HYDROCELECTOMY;; Surgeon: Rafael Fernandez MD JOINT REPLACEMENT balateral knee and R shoulder ORIF 1946 left distal femur fracture. 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 Nose: Nose normal. Mouth/Throat: Mouth: Mucous membranes are moist. Eyes: Conjunctiva/sclera: Conjunctivae normal. Neck: Comments: Neck veins full Cardiovascular: Rate and Rhythm: Rhythm irregular. Pulses: Normal pulses. Pulmonary: Comments: B/l crackles And wheezing Abdominal: Palpations: Abdomen is soft. Comments: Edema noted on pannus scrotum b/l LE +++ Genitourinary: Comments: Cotton + Musculoskeletal: Comments: Edema noted on pannus scrotum b/l LE +++ Skin: General: Skin is warm. Neurological: Mental Status: He is alert. Comments: Oriented to self Knows name [facility] [place] Does not know why he is here / covid/ date/ president questions Speech grossly ok Repeats short sentences Confused Psychiatric: Comments: Cannot be assessed documented in this encounter Procedure Notes Danial Oconnor MD - 07/27/2020 1:39 PM CDT Immediate Post-Cardiac Catheterization Progress Note Att. Phys: Darin Nathan MD Operative Date: 07/27/2020 Surgeon: Danial Oconnor MD Rn Women Services: none Pre-Operative Diagnosis: Chest pain Post-Operative Diagnosis: 80 % mid RCA treated with 5.0 x 18 resolute BURKE post dilated with 6.0 NC balloon to 16 MARGARET with excellent results, 50 % md LAD stenosis, non obstructive disease in circ Anesthesia Type: See Operation Agent procedure log Operative Procedure: coronary angio, PCI RCA Specimens: None Fluids Given: See Operation Agent procedure log Urine Output: See Operation Agent procedure log Estimated Blood Loss: 10 mL Drains: none Findings: Coronary anatomy- Left ventriculography- Hemodynamics- Complications: None Disposition: Postoperative Condition: stable The procedure was performed using moderate conscious sedation. The patient was monitored utilizing continuous pulse oximetry, continuous telemetry/bedside cardiac monitoring and intermittent blood pressure measurements throughout the procedure without notable aberration in vitals. Please see the patients procedure log for further information. procedure start 1:00 and end time 1:39 . Fanny Walker MD - 07/26/2020 6:50 PM CDTAtt. Phys: Darin Nathan MD Operative Date: 07/26/2020 Surgeon: Fanny Hernandez MD Rn Women Services: none Pre-Operative Diagnosis: Post-Operative Diagnosis: See full report Anesthesia Type: See SHAMEKA Lab procedure log Operative Procedure: SHAMEKA Specimens: None Fluids Given: See SHAMEKA Lab procedure log Urine Output: See SHAMEKA Lab procedure log Estimated Blood Loss: none Drains: none Findings: See above Complications: None Disposition: Postoperative Condition: stable The procedure was performed using moderate conscious sedation. The patient was monitored utilizing continuous pulse oximetry, continuous telemetry and intermittent blood pressure measurements throughout the procedure without notable aberration in vitals. Please see the patient's procedure log for fur ther information. Physician start time 1143 Physician stop time 1152 documented in this encounter Consult Notes Rin Cotto MD - 07/26/2020 3:43 PM CDTAssociated Order(s): CONSULT CARDIOLOGY Cardiology Consult Note CONSULT CARDIOLOGY Consult performed by: Rin Cotto MD Consult ordered by: Darin Nathan MD Assessment / Plan Active Problems: Encephalopathy 1. NSTEMI likely type I versus type II 2. Worsening dysrhythmiaconcerning for coronary artery disease 3. Persistent atrial fibrillation with a controlled rate, on chronic anticoagulation with Eliquis 4. ACute on chronic diastolic heart failure 5. Mild subarachnoid hemorrhage, stableneurosurgery agreed with to restart anticoagulation 6. Streptococcus agalactiae bacteremia 79-year-old gentleman with a past medical history of atrial fibrillation on Eliquis, CKD stage III, diabetes mellitus type 2, COPD, hyperlipidemia, morbid obesity, hypertension who transferred from outside facility for generalized weakness and fall at home. Patient was found to have mild subarachnoid hemorrhage, which was stable on repeat CT scan showed stable subarachnoid hemorrhage. Neurosurgery evaluated the patient, cleared for anticoagulation. Patient had mildly elevated troponin I 0.338 which is trended down to 0.317, 0.260. EKG on admission showed A. fib with slow ventricular rate no significant ST-T changes. Cardiology was consulted on admission for NSTEMI, considered type II due to no chest pain, minimal elevation of troponin which istrending down, with underlying diastolic heart failure, CKD and subarachnoid hemorrhage. Patient had echocardiography which showed EF of 60% with no regional wall motion abnormalities, trivial aortic regurgitation, mild aortic stenosis, mild mitral stenosis and a mild tricuspid regurgitation and pulmonary hypertension mild. Patient started having multiple PVCs on telemetry, asymptomatic concern for underlying significant coronary artery disease. Repeat EKG from 07/26/2020 showed atrial fibrillation with normal rate, multiple premature ventricular contractions no significant ST-T changes. Patient had SHAMEKA for Gram-positive bacteremia, negative for any vegetations. Plan Correct electrolytes, keep potassium greater than 4, magnesium greater than 2. PET stress test on 07/27/2020 Continue metoprolol tartrate, 12.5 mg twice daily, hold if heart rate less than 55. N.p.o. after midnight Cardiology will follow, please call with questions Reason for Consult Dysrhythmias - r/o CAD HPI / History / ROS HPI This is a 79-year-old gentleman with past medical history of atrial fibrillation on chronic anticoagulation, CKD stage III, diabetes mellitus type 2, COPD, hyperlipidemia, morbid obesity, hypertension was admitted for hospital with fall and generalized weakness. Patient find out to have very mild subarachnoid hemorrhage which was stable on repeat CT scan, neurosurgery evaluated the patient and cleared for anticoagulation. 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 Acne rosacea Primary osteoarthritis of right hip Chronic renal failure, stage 3 (moderate) ([facility]) Impacted cerumen, right ear Carcinoma in situ of colon Polyp of colon, adenomatous 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, bilateral 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 MOTION (background diabetic retinopathy) ([facility]) Anterior uveitis On apixaban therapy Pseudophakia - Both Raised intraocular pressure of both eyes Encephalopathy Current Facility-Administered Medications Medication Dose Route Frequency sodium chloride 0.9% flush (adult) 10 mL 10 mL IV 2 times a day and prn sodium chloride 0.9% IV solution IV Continuous metoprolol tartrate (LOPRESSOR) half-tablet 12.5 mg 12.5 mg Oral 2 times a day hydrALAZINE (APRESOLINE) tablet 25 mg 25 mg Oral 3 times a day QUEtiapine (SEROquel) tablet 37.5 mg 37.5 mg Oral Every 24 hours polyethylene glycol (MIRALAX) packet 1 packet 1 packet Oral Daily insulin glargine (LANTUS) SQ injection 25 Units Subcutaneous daily insulin aspart (NovoLOG) SQ injection 5 Units Subcutaneous 3 times a day with meals melatonin tablet 6 mg 6 mg Oral 1 time calcium carbonate (TUMS) chewable tablet 500 mg 500 mg Oral 4 times a day prn formoterol (PERFOROMIST) 20 MCG/2ML inhalation solution 20 mcg 20 mcg Nebulization 2 times a day ipratropium (ATROVENT) 0.5 mg/2.5 mL inhalation soln 0.5 mg 0.5 mg Nebulization Every 6 hours albuterol-ipratropium (DUO-NEB) 2.5-0.5 mg/3 mL inhalation solution 3 mL 3 mL Nebulization Every 4 hours prn donepezil (ARICEPT) tablet 20 mg 20 mg Oral Every morning furosemide (LASIX) injection solution 40 mg 40 mg IV Every 24 hours polyvinyl alcohol-povidone (REFRESH) preservative free ophthalmic solution 1 drop 1 drop Both eyes 4 times a day apixaban (ELIQUIS) tablet 5 mg 5 mg Oral 2 times a day cefTRIAXone (ROCEPHIN) 2000 mg/20 mL IV syringe in sterile water 2,000 mg IV Every 24 hours sodium chloride 0.9% flush (adult) 10 mL 10 mL IV 2 times a day and prn acetaminophen (TYLENOL) tablet 650 mg 650 mg Oral Every 4 hours prn dextrose 50% IV solution 50 mL 25 g IV PRN per parameter glucagon for injection 1 mg vial 1 mg 1 mg Intramuscular PRN per parameter dextrose chewable tablet 16 g 4 tablet Oral PRN per parameter Or carbohydrate 15 g 15 g Oral PRN per parameter sodium chloride 0.9% flush (adult) 10 mL 10 mL IV 2 times a day and prn ondansetron (ZOFRAN ODT) dispersible tablet 4 mg 4 mg Oral 4 times a day prn And ondansetron (ZOFRAN) injection solution 4 mg 4 mg IV 4 times a day prn senna-docusate sodium (SENOKOT-S;PERICOLACE) tablet 2 tablet 2 tablet Oral 2 times a day prn And bisacodyl (DULCOLAX) suppository 10 mg 10 mg Rectal 1 time a day prn And docusate sodium (THEREVAC-SB MINI;ENEMEEZ MINI) 283 MG enema 1 enema 1 enema Rectal 1 time a day prn insulin aspart (NovoLOG) SQ correction scale (Adult) 2-8 Units Subcutaneous 3 times a day amLODIPine (NORVASC) tablet 10 mg 10 mg Oral Daily cloNIDine (CATAPRES) tablet 0.1 mg 0.1 mg Oral 2 times a day mirtazapine (REMERON) tablet 15 mg 15 mg Oral at bedtime rosuvastatin (CRESTOR) tablet 40 mg 40 mg Oral daily tamsulosin (FLOMAX) capsule 0.4 mg 0.4 mg Oral at bedtime hydrALAZINE (APRESOLINE) injection solution 10 mg 10 mg IV Every 4 hours prn No Known Allergies Past Medical History: Diagnosis Date Astigmatism of both eyes Atrial fibrillation (HCC) Cataract senile - OU Chronic renal failure, stage 3 (moderate) ([facility]) 08/17/2016 COPD (chronic obstructive pulmonary disease) ([facility]) uses inhaler COPD with asthma (HCC) CVA (cerebral vascular accident) (HCC) 05/09/2019 DM (diabetes mellitus) type II controlled, neurological manifestation (HCC) Fall hurt knee wraps with gary happened in 05-28-2014 Fall at home History of radiation therapy 30 treatments cancer inside of nose Hydrocele, left Hypercholesterolemia Hyperlipidemia Hypertension history of Morbid obesity (HCC) Neuropathy, peripheral Osteoporosis Posterior uveitis, bilateral 07/15/2019 Presbyopia OU Primary osteoarthritis of right hip 12/01/2015 Skin cancer basal cell SOB (shortness of breath) Past Surgical History: Procedure Laterality Date ANES 65426 TOTAL SHOULDER Right total shoulder ARTHROPLASTY KNEE CONDYLE & PLATEAU MEDIAL & LAT COMPARTMENTS WWO PAT Bilateral 2012 Knee replacement, total CATARACT EXTRACTION CHOLECYSTECTOMY 1999 Lap EYE SURGERY Right cataract, needs left done HERNIA REPAIR inguinal HYDROCELE SPERMATOCELE Left 06/25/2014 Procedure: LEFT HYDROCELECTOMY;; Surgeon: Rafael Fernandez MD JOINT REPLACEMENT balateral knee and R shoulder ORIF 1946 left distal femur fracture. 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 HENT: Negative. Eyes: Negative. Respiratory: Positive for shortness of breath. Cardiovascular: Negative. Gastrointestinal: Negative. Endocrine: Negative. Genitourinary: Negative. Musculoskeletal: Positive for back pain. Skin: Negative. Allergic/Immunologic: Negative. Neurological: Negative. Hematological: Negative. Psychiatric/Behavioral: Negative. Physical / Results Current Vital Signs Temp: 97.9 F (36.6 C) BP: 128/80 Weight: (!) 142.6 kg (314 lb 6.4 oz) SpO2: 95 % Resp: 20 Pulse: 51 Current BMI (>50 = increased risk): (!) 36.58 O2 Device: NC - no humidity O2 Flow Rate (L/min): 1 l/min Pain Ratin Physical Exam Constitutional: He appears acutely ill. Eyes: Conjunctivae are normal. Cardiovascular: Normal rate, S1 normal, S2 normal and normal heart sounds. An irregularly irregular rhythm present. Pulmonary/Chest: Increased effort noted. He has bibasilar rales and diffuse wheezes. He exhibits no tenderness. Abdominal: Soft. Neurological: He is alert and oriented to person, place, and time. Skin: Skin is warm. Medical Decision Making I have: Ordered laboratory, radiology or other diagnostic tests. Independently visualized and interpreted an image, tracing or specimen previously or subsequently interpreted by another provider. Discussed results of laboratory, radiology or other diagnostic tests with the physician who performed or interpreted the study. Yadiel Montanez MD PGY3 Internal Medicine Resident [facility] Pager: [phone] Associated attestation - Rolanda Saldivar MD - 07/26/2020 4:58 PM CDT I discussed the patient with the resident and personally interviewed and examined the patient. I verified in the medical record all resident documentation/findings, including history, physical exam, and medical decision making, and I agree with the resident's documentation. Mr. Haddad is a 79-year-old man with history of diabetes mellitus type 2, hypertension, permanent atrial fibrillation currently rate controlled on chronic anticoagulation with apixaban who was admitted to the hospital for generalized weakness and fall. Found to have mild subarachnoid hemorrhage. Neurosurgery was okay for anticoagulation. Patient also had non-ST elevation CA with mildly elevated troponin that trended down. This was thought to be most likely type II CA. Echo shows EF 60% without any wall motion. Cardiology was reconsulted due to frequent PVCs on monitoring manager. The appears to be polymorphic. Patient is symptomatic during this time. He also has gram-positive bacteremia and SHAMEKA today is negative for any vegetation. Would recommend continuing diuresis and keeping electrolytes specially potassium above 4 and magnesium more than 2. Trial of low-dose beta-lydia if tolerated and if it suppresses the PVCs. Otherwise if you remain asymptomatic he can just be monitored.For ischemic evaluation we will get PET stress test tomorrow. Plan was discussed at length with the patient and his and son at bedside. Patient was quite sleepy and was on BiPAP/CPAP. Rolanda Saldivar MD, PhD Contact Center Assistant [facility] Zarina Christian DPM - 07/23/2020 3:22 PM CDTFoot and Ankle Surgery Inpatient History and Physical Patient ID: Stephen Haddad is a 79yr male. WEN: [id number] PCP: Mustapha Jones MD Attending Provider: Ruth Etienne MD Hospital Stay: 2 Assessment 79yr year old male with bilateral feet Charcot deformity with right foot pre- ulcerative lesions digits 2, 4. Likelihood for cause of bacteremia is minimal. Right foot radiographs showing calcified vessels. As far as digital bony involvement, cannot appreciate but will await radiology read as well. SAURABH's NC to RLE with calcified vessels on radiographs. Elias consulted with vascular for outpatient follow up versus further workup Plan - No plan for surgical intervention. Recommend right foot daily Betadine paint application to digits. Follow-up with podiatry in [place]. Follow up with vascular surgery at their discretion. Signingoff. - Remaining cares per medicine team History of the Present Illness Mr. Haddad is a 79yr old male with past medical history of atrial fibrillation on Eliquis, hypertension, diabetes mellitus type 2, obesity, hyperlipidemia, COPD, CKD stage III, CVA admitted from outside facility as a direct admit for bilateral lower extremity weakness, fall admitted on 07/21/2020 and is seen at the request of internal medicine for " RT second toe with concern for possible infection; patient with bacteremia. Would appreciate podiatry evaluation of toe." Patient is a very poor historian and was struggling to eat his food during the visit. and son were present during the visit and provided the most pertinent history. Patient is currently bacteremic, and for member today that as of 2-3 weeks ago he finally healed a right foot fourth digital ulcer that took about 2-3 months to heal and was wondering if this could be the cause of the infection. Review of Systems Review of Systems Reason unable to perform ROS: Encephalopathic. Medications Medications Prior to Admission Medication tamsulosin (FLOMAX) 0.4 mg capsule cloNIDine (CATAPRES) 0.1 mg tablet potassium chloride (KLOR-CON M20) 20 MEQ CR tablet rosuvastatin (CRESTOR) 40 mg tablet apixaban (ELIQUIS) 5 MG tablet donepezil (ARICEPT) 10 mg tablet mirtazapine (REMERON) 15 mg tablet furosemide (LASIX) 40 mg tablet amLODIPine (NORVASC) 10 mg tablet sulfaSALAzine (AZULFIDINE) 500 mg tablet olmesartan (BENICAR) 40 mg tablet insulin glargine (BASAGLAR) subcutaneous injection (pen) Zinc (ZINC) 50 MG CAPS B Complex Vitamins (B COMPLEX PO) Loperamide HCl (IMODIUM PO) UNIFINE PENTIPS 31G X 8 MM Short multivitamin/lutein (PROSIGHT;OCUVITE-LUTEIN) capsule acetaminophen (TYLENOL) 500 mg tablet calcium-vitamin D (OSCAL 500 + VITAMIN D) 500 mg-200 units TABS tablet Youxfbcuewn-Lulsoshno-Psi C-Mn (GLUCOSAMINE-CHONDROITIN) capsule Allergies No Known Allergies Past Medical History Past Medical History: Diagnosis Date Astigmatism of both eyes Atrial fibrillation (HCC) Cataract senile - OU Chronic renal failure, stage 3 (moderate) ([facility]) 08/17/2016 COPD (chronic obstructive pulmonary disease) ([facility]) uses inhaler COPD with asthma ([facility]) CVA (cerebral vascular accident) ([facility]) 05/09/2019 DM (diabetes mellitus) type II controlled, neurological manifestation ([facility]) Fall hurt knee wraps with gary happened in 05-28-2014 Fall at home History of radiation therapy 30 treatments cancer inside of nose Hydrocele, left Hypercholesterolemia Hyperlipidemia Hypertension history of Morbid obesity ([facility]) Neuropathy, peripheral Osteoporosis Posterior uveitis, bilateral 07/15/2019 Presbyopia OU Primary osteoarthritis of right hip 12/01/2015 Skin cancer basal cell SOB (shortness of breath) Past Surgical History Past Surgical History: Procedure Laterality Date ANES TOTAL SHOULDER Right total shoulder ARTHROPLASTY KNEE CONDYLE & PLATEAU MEDIAL & LAT COMPARTMENTS WWO PAT Bilateral 2012 Knee replacement, total CATARACT EXTRACTION CHOLECYSTECTOMY 1999 Lap EYE SURGERY Right cataract, needs left done HERNIA REPAIR inguinal HYDROCELE SPERMATOCELE Left 06/25/2014 Procedure: LEFT HYDROCELECTOMY;; Surgeon: Rafael Fernandez MD JOINT REPLACEMENT balateral knee and R shoulder ORIF 1946 left distal femur fracture. TONSILLECTOMY A YOUNG BOY VASECTOMY Family History Family History Problem Relation Age of Onset Parkinsonism Father Heart Attack Mother Stroke Mother Stroke Sister Bladder Cancer Neg Hx Kidney Cancer Neg Hx Prostate Cancer Neg Hx Testicular Cancer Neg Hx Nephrolithiasis Neg Hx Kidney Disease Neg Hx Cataracts Neg Hx Glaucoma Neg Hx Macular Degeneration Neg Hx Amblyopia Neg Hx Blindness Neg Hx Retinal Detachment Neg Hx Social History Social History Tobacco Use Smoking status: Never Smoker Smokeless tobacco: Never Used Substance Use Topics Alcohol use: Not Currently Comment: couple of times per year Drug use: No Physical Exam Current Vital Signs Temp: 98.9 F (37.2 C) BP: 130/60 Pulse: 56 O2 Device: NC - no humidity O2 Flow Rate (L/min): 1.5 l/min Resp: 18 Pain Ratin (out of 10) Weight: (!) 139.5 kg (307 lb 8 oz) SpO2: 99 % Vitals Min/Max Last 24 Hours Vital Signs Min/Max (last 24 hours) Flowsheet Row Name Min Max Temp 97.4 F (36.3 C) 99.7 F (37.6 C) BP: Systolic 128 190 BP: Diastolic 46 124 Pulse 50 80 Resp 18 34 SpO2 (!) 88 % 100 % FiO2 (Set , %) 30 % 30 % O2 Flow Rate (L/min) 1.5 l/min 2 l/min MAP (mm Hg) 107 mm Hg 107 mm Hg Physical Exam Ortho Exam Foot Exam Lower Extremity Exam: Bilateral feet and ankles are swollen therefore unable to palpate pedal pulsessecondary to that. Bilateral clinical Charcot deformity obvious clinically. Right foot pre-ulcerative stable lesions to digits 2, 4 - clinically, no concern for infection. Zarina Christian DPM, PGY3 *This note was created, at least in part, with the use of [employer] Voice Dictation System. Inadvertent typographical errors, due to software recognition problems, may still exist. Associated attestation - Angel Rinaldi DPM - 07/24/2020 8:44 AM CDTI discussed the patient with the resident and personally interviewed and examined the patient. I agree with the patient's diagnosis and management. Angel Rinaldi DPM 07/24/2020 Shellie Fraga MD - 07/22/2020 3:29 PM CDTAssociated Order(s): CONSULT INFECTIOUS DISEASE INFECTIOUS DISEASE CONSULT Impression - Gram positive cocci bacteremia - likely alpha hemolytic Streptococcus - NSTEMI - Small subarachnoid bleed Plan - Continue Ceftriaxone 2g IV daily - Continue IV Vancomycin per pharmacy dosing - He will need SHAMEKA early next week prior to discharge - Follow cultures - Discussed with primary team Shellie Fraga M.D. Infectious Disease Pager [phone] Chief Complaint / HPI Reason for consult: Bacteremia 79 year-old male with medical history significant for atrial fibrillation, hypertension, diabetes mellitus type 2, dyslipidemia, COPD/asthma admitted from outside facility on 07/21/2020 with progressiveweakness especially in his lower extremities. He fell at home according to records. He was confusedat the outside facility. He had elevated troponin and BNP. His white blood cell count was also elevated. Blood culture obtained at the outside hospital is growing gram positive cocci (? alpha hemolytic Streptococcus). He was febrile on admission here with T-max of 101.2 F. Blood cultures obtained here on 07/21/2020 have been negative till date. CT scan of the head on 07/21/20 showed punctate hyperdensity overlying the right lateral temporal lobe which could reflect trace subarachnoid hemorrhage. Patient seen, he reports not remembering the events prior to his admission. He denies any fever, chills, nausea, vomiting or diarrhea. He denies shortness of breath. Medications Antibiotics (From admission, onward) Start Stop Route Frequency Ordered 07/22/20 1430 vancomycin (VANCOCIN) 2,000 mg in sodium chloride 0.9% 500 mL (Locked) Status: Discontinued 07/22 1415 IV Every eighteen hours 07/22/20 1414 07/22/20 1415 vancomycin therapy reminder -- MISC Upon permission 07/22/20 1417 07/21/20 1900 vancomycin (VANCOCIN) 2,000 mg in sodium chloride 0.9% 500 mL (Locked) Status: Discontinued 07/22 1321 IV Every eighteen hours 07/21/20 1821 07/21/20 1330 cefTRIAXone (ROCEPHIN) 1000 mg/10 mL IV syringe in sterile water 07/28 0859 IV DAILY 07/21/20 1222 07/21/20 1330 azithromycin (ZITHROMAX) tablet 500 mg 07/24 0859 PO Daily 07/21/20 1222 All other medications reviewed in [facility]. Allergies No Known Allergies Medical / Surgical / Family History Past Medical History: Diagnosis Date Astigmatism of both eyes Atrial fibrillation (HCC) Cataract senile - OU Chronic renal failure, stage 3 (moderate) ([facility]) 08/17/2016 COPD (chronic obstructive pulmonary disease) ([facility]) uses inhaler COPD with asthma ([facility]) CVA (cerebral vascular accident) ([facility] [facility] 05/09/2019 DM (diabetes mellitus) type II controlled, neurological manifestation ([facility]) Fall hurt knee wraps with gary happened in 05-28-2014 Fall at home History of radiation therapy 30 treatments cancer inside of nose Hydrocele, left Hypercholesterolemia Hyperlipidemia Hypertension history of Morbid obesity ([facility]) Neuropathy, peripheral Osteoporosis Posterior uveitis, bilateral 07/15/2019 Presbyopia OU Primary osteoarthritis of right hip 12/01/2015 Skin cancer basal cell SOB (shortness of breath) Past Surgical History: Procedure Laterality Date ANES 88234 TOTAL SHOULDER Right total shoulder ARTHROPLASTY KNEE CONDYLE & PLATEAU MEDIAL & LAT COMPARTMENTS WWO PAT Bilateral 2012 Knee replacement, total CATARACT EXTRACTION CHOLECYSTECTOMY 1999 Lap EYE SURGERY Right cataract, needs left done HERNIA REPAIR inguinal HYDROCELE SPERMATOCELE Left 06/25/2014 Procedure: LEFT HYDROCELECTOMY;; Surgeon: Rafael Fernandez MD JOINT REPLACEMENT balateral knee and R shoulder ORIF 1946 left distal femur fracture. TONSILLECTOMY A YOUNG BOY VASECTOMY No family history of recurrent infections Social History Social History Tobacco Use Smoking status: Never Smoker Smokeless tobacco: Never Used Substance Use Topics Alcohol use: Not Currently Comment: couple of times per year Drug use: No Social History Substance and Sexual Activity Drug Use No ROS Remainder of 10 point ROS asked / reviewed and negative except as above in HPI Physical Exam Vitals: 07/22/20 1159 BP: 143/67 Pulse: 49 Resp: 18 Temp: 98.9 F (37.2 C) SpO2: 96% Maximum Temperatures (last 24 hours) Temperature Maximum Max Temp 101.2 F (38.4 C) General: cooperative, no distress HEENT: conjunctiva normal, no oral thrush noted Lungs: Decreased breath sounds bilaterally Heart: irregular, no audible murmurs Abdomen: soft, no tenderness Msk: no swelling of joints, no edema Skin: no suspicious rashes Neuro: Alert, follows come commands Microbiology / Serologies BLOOD: 07/21/20 - Pending 07/21/20 - Gram positive cocci ( ? alpha Streptococcus) - outside facility Radiology XR: Chest xray 07/21/20 FINDINGS/IMPRESSION: No large regions of consolidation. Similar appearance of streaky opacification in the left lung basethat likely represents scarring. Cardiomediastinal silhouette is mildly enlarged. Mild to moderate pulmonary vascular congestion. No large pleural effusion. No pneumothorax. Partially visualized left shoulder arthroplasty without obvious complication. Labs Estimated Creatinine Clearance: 45.1 mL/min (A) (based on SCr of 1.66 mg/dL (H)). Lab Results Component Value Date WBC 12.5 (H) 07/22/2020 NUCRBC 0 07/22/2020 RBC 4.24 (L) 07/22/2020 HEMOGLOBIN 13.1 (L) 07/22/2020 HEMATOCRIT 39.6 (L) 07/22/2020 MCV 93.4 07/22/2020 MCH 30.9 07/22/2020 MCHC 33.1 07/22/2020 PLTCOUNT 167 07/22/2020 NEUTROPCT 83.2 07/22/2020 BANDPCT 2.0 01/18/2016 LYMPHSPCT 5.4 07/22/2020 MONOSPCT 6.9 07/22/2020 EOSPCT 3.4 07/22/2020 BASOPHILPCT 0.5 07/22/2020 Lab Results Component Value Date GLUCOSE 302 (H) 07/22/2020 BUN 38 (H) 07/22/2020 CREATSERUM 1.66 (H) 07/22/2020 BCRATIO 22.9 07/22/2020 NA 135 07/22/2020 POTASSIUM 3.3 (L) 07/22/2020 CL 98 (L) 07/22/2020 CO2 26 07/22/2020 CA 8.1 (L) 07/22/2020 Medical Decision Making Total unit / floor time 60 minutes. Over 50% of total time used in counseling and coordination of care. Rin Cotto MD - 07/22/2020 1:39 PM CDTAssociated Order(s): CONSULT CARDIOLOGY Cardiology Consult Note CONSULT CARDIOLOGY Consult performed by: Rin Cotto MD Consult ordered by: Ruth Etienne MD Assessment / Plan Active Problems: Encephalopathy 1. Persistent atrial fibrillation with slow ventricular response, on chronic anticoagulation with Eliquis 2. Acute on chronic diastolic heart failure 3. NSTEMI type II likely from diastolic heart failure, CKD and SAH 4. Mild subarachnoid hemorrhage, stableneurosurgery agreed to restart Eliquis 79-year-old gentleman with a past medical history of atrial fibrillation on Eliquis, CKD stage III, diabetes mellitus type 2, COPD, hyperlipidemia, morbid obesity, hypertension [facility]. Patient also find out to have mild subarachnoidhemorrhage which was stable on repeat CT scan. Patient did not complaining any headache, no loss ofconsciousness. Neurosurgery was evaluated and cleared for continuation of chronic anticoagulation. Patient has mildly elevated troponin I 0.338 which is trended down 0.317 and 0.260. Patient does not have chest pain EKG showed atrial fibrillation rhythm with slow ventricular rate 58, wide QRS complex. Echocardiography showed normal left ventricular function with EF of 60% no regional wall motion abnormalities, trivial aortic regurgitation mild AAS, mild MS and mild TR mild pulmonary hypertensionwith a pulmonary artery pressure of 46 mmHg. Dilated IVC. In cardiology stand point - No chest pain, elevated troponin I likely from CKD, diastolic heart failure and SAH, his echocardiography showed normal EF with no significant regional wall motion abnormalities. Plan -- Keep monitoring bradycardia- telemetry -- No testing for NSTEMI at this time, as unlikely type I, likely type II with diastolic heart failure, CKD and SAH. Troponin I trending down, no chest pain from patient. -- Continue eliquis, CHADVASC score 7, neurosurgery agreed for eliquis -- continue diuresis as per primary team -- Cardiology will follow the patient, please call with questions Reason for Consult Afib on eliquis, NSTEMI and small Subarachnoid hemorrhage HPI / History / ROS HPI 79-year-old male with a past medical history of atrial fibrillation on Eliquis, hypertension, diabetes mellitus type 2, obesity, hyperlipidemia, COPD, CKD stage III, CVA admitted from outside facility as a direct admit for bilateral lower extremity weakness, fall. CT scan from outside facility showedmild subarachnoid hemorrhage, repeat CT scan from our facility also showed stable subarachnoid hemorrhage. Patient does not have chest pain or shortness of breath. No significant syncope, palpitations. History Patient Active Problem List Diagnosis Essential hypertension Obesity Controlled type 2 diabetes mellitus with diabetic polyneuropathy, with long- term current use of insulin ([facility]) Peripheral autonomic neuropathy in disorders classified elsewhere(337.1) Hyperlipidemia associated with type 2 diabetes mellitus ([facility]) Screening for eye condition COPD with asthma ([facility]) Chronic atrial fibrillation ([facility]) S/P total knee arthroplasty Edema of lower extremity Pre-ulcerative corn or callous Basal cell carcinoma of nose Hydrocele, left Scrotal hematoma assisted current use of anticoagulant therapy Acne rosacea Primary osteoarthritis of right hip Chronic renal failure, stage 3 (moderate) ([facility]) Impacted cerumen, right ear Carcinoma in situ of colon Polyp of colon, adenomatous 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 ([facility]) Posterior uveitis, bilateral 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 MOTION (background diabetic retinopathy) ([facility]) Anterior uveitis On apixaban therapy Pseudophakia - Both Raised intraocular pressure of both eyes Encephalopathy Current Facility-Administered Medications Medication Dose Route Frequency apixaban (ELIQUIS) tablet 5 mg 5 mg Oral 2 times a day potassium chloride (KLOR-CON M20) CR tablet 40 mEq 40 mEq Oral 1 time insulin glargine (LANTUS) SQ injection 10 Units Subcutaneous daily sodium chloride 0.9% flush (adult) 10 mL 10 mL IV 2 times a day and prn acetaminophen (TYLENOL) tablet 650 mg 650 mg Oral Every 4 hours prn dextrose 50% IV solution 50 mL 25 g IV PRN per parameter glucagon for injection 1 mg vial 1 mg 1 mg Intramuscular PRN per parameter dextrose chewable tablet 16 g 4 tablet Oral PRN per parameter Or carbohydrate 15 g 15 g Oral PRN per parameter sodium chloride 0.9% flush (adult) 10 mL 10 mL IV 2 times a day and prn ondansetron (ZOFRAN ODT) dispersible tablet 4 mg 4 mg Oral 4 times a day prn And ondansetron (ZOFRAN) injection solution 4 mg 4 mg IV 4 times a day prn senna-docusate sodium (SENOKOT-S;PERICOLACE) tablet 2 tablet 2 tablet Oral 2 times a day prn And bisacodyl (DULCOLAX) suppository 10 mg 10 mg Rectal 1 time a day prn And docusate sodium (THEREVAC-SB MINI;ENEMEEZ MINI) 283 MG enema 1 enema 1 enema Rectal 1 time a day prn cefTRIAXone (ROCEPHIN) 1000 mg/10 mL IV syringe in sterile water 1,000 mg IV daily azithromycin (ZITHROMAX) tablet 500 mg 500 mg Oral Daily furosemide (LASIX) injection solution 40 mg 40 mg IV 2 times a day diuretic insulin aspart (NovoLOG) SQ correction scale (Adult) 2-8 Units Subcutaneous 3 times a day amLODIPine (NORVASC) tablet 10 mg 10 mg Oral Daily cloNIDine (CATAPRES) tablet 0.1 mg 0.1 mg Oral 2 times a day donepezil (ARICEPT) tablet 20 mg 20 mg Oral Every morning mirtazapine (REMERON) tablet 15 mg 15 mg Oral at bedtime losartan tablet 100 mg 100 mg Oral Daily rosuvastatin (CRESTOR) tablet 40 mg 40 mg Oral daily tamsulosin (FLOMAX) capsule 0.4 mg 0.4 mg Oral at bedtime hydrALAZINE (APRESOLINE) injection solution 10 mg 10 mg IV Every 4 hours prn ipratropium (ATROVENT) 0.5 mg/2.5 mL inhalation soln 0.25 mg 0.25 mg Nebulization Every 6 hours formoterol (PERFOROMIST) 20 MCG/2ML inhalation solution 20 mcg 20 mcg Nebulization 2 times a day No Known Allergies Past Medical History: Diagnosis Date Astigmatism of both eyes Atrial fibrillation ([facility]) Cataract senile - OU Chronic renal failure, stage 3 (moderate) ([facility]) 08/17/2016 COPD (chronic obstructive pulmonary disease) ([facility] uses inhaler COPD with asthma ([facility]) CVA (cerebral vascular accident) ([facility]) 05/09/2019 DM (diabetes mellitus) type II controlled, neurological manifestation ([facility]) Fall hurt knee wraps with gary happened in 05-28-2014 Fall at home History of radiation therapy 30 treatments cancer inside of nose Hydrocele, left Hypercholesterolemia Hyperlipidemia Hypertension history of Morbid obesity ([facility]) Neuropathy, peripheral Osteoporosis Posterior uveitis, bilateral 07/15/2019 Presbyopia OU Primary osteoarthritis of right hip 12/01/2015 Skin cancer basal cell SOB (shortness of breath) Past Surgical History: Procedure Laterality Date ANES 26538 TOTAL SHOULDER Right total shoulder ARTHROPLASTY KNEE CONDYLE & PLATEAU MEDIAL & LAT COMPARTMENTS WWO PAT Bilateral 2013 Knee replacement, total CATARACT EXTRACTION CHOLECYSTECTOMY 1999 Lap EYE SURGERY Right cataract, needs left done HERNIA REPAIR inguinal HYDROCELE SPERMATOCELE Left 06/25/2014 Procedure: LEFT HYDROCELECTOMY;; Surgeon: Rafael Fernandez MD JOINT REPLACEMENT balateral knee and R shoulder ORIF 1946 left distal femur fracture. 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 Eyes: Negative. Respiratory: Positive for shortness of breath. Gastrointestinal: Negative. Endocrine: Negative. Musculoskeletal: Negative. Skin: Negative. Neurological: Negative. Physical / Results Current Vital Signs Temp: 98.9 F (37.2 C) BP: 143/67 Weight: (!) 144.8 kg (319 lb 3.2 oz) SpO2: 96 % Resp: 18 Pulse: 49 Current BMI (>50 = increased risk): (!) 36.58 O2 Device: Room Air O2 Flow Rate (L/min): 1 l/min Pain Ratin Physical Exam Constitutional: He appears acutely ill. Eyes: Pupils are equal, round, and reactive to light. Neck: Normal range of motion. JVD present. Cardiovascular: S1 normal, S2 normal and normal heart sounds. An irregularly irregular rhythm present. Bradycardia present. Pulmonary/Chest: He has bibasilar rales and diffuse wheezes. He exhibits no tenderness. Abdominal: Soft. Musculoskeletal: Normal range of motion. Neurological: He is alert and oriented to person, place, and time. Skin: Skin is warm. Medical Decision Making I have: Ordered laboratory, radiology or other diagnostic tests. Independently visualized and interpreted an image, tracing or specimen previously or subsequently interpreted by another provider. Discussed results of laboratory, radiology or other diagnostic tests with the physician who performed or interpreted the study. Yadiel Montanez MD PGY3 Internal Medicine Resident [facility] Pager: [phone] Associated attestation - Fanny Hernandez MD - 07/22/2020 5:11 PM CDT I discussed the patient with the resident and personally interviewed and examined the patient. I verified in the medical record all resident documentation/findings, including history, physical exam, and medical decision making, and I agree with the resident's documentation.Kalen Wallace MD - 07/21/2020 2:47 PM CDTAssociated Order(s): CONSULT [id number] yo on Eliquis fell off side of high bed last evening 07/20/20, hitting head but with no LOC. [facility] concerned about cardiac status and transferred to [facility]. Eliquis stopped. CT head shows right temporal lobe 4 mm hyperdensity potentially representing acute tiny subarachnoid hemorrhage. Denies headache, nausea, diplopia. and daughter agree he is at baseline cognition. He had AF on Coumadin when had stroke last year. Then switched to Eliquis. Stroke left him slowed cognition, and intermittent right hand tingling. Exam shows no mantilla on head. Pupils 3 mm and reactive. No diplopia. No facial droop. Tongue midline.Ankles swollen. No pronator drift. 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 Negative Babinskis. The tiny possible right traumatic SAH in temporal lobe. Will get repeat CT head no contrast in AM 07/22/20. If no increase in size, then no further head CT scans needed now or later, and could restart Eliquis. No need for anti-seizure medication. documented in this encounter Miscellaneous Notes Case Mgmt - Adrianna Espinal LSW - 08/03/2020 12:10 PM CDTCASE MANAGEMENT / SOCIAL SERVICE FINAL TRANSITION PLAN TRANSITION DATE: 08/03/2020 TRANSITION TIME: 1345 INTENDED PAYER SOURCE FOR AGENCY: Medicare TRANSITION DESTINATION: [address] THERESE Aquino Nurse to nurse: [phone] SPECIAL TRANSITION DAY INSTRUCTIONS TO NURSE / MD: HIGH PRESSURE FIRER: Please fax paperwork to above fax number Nursing: please call report at above number before or just as patient leaves. MD: please do Interagency transfer order set, ensure orders for PT, OT, ST(if needed) are included. When doing medication orders, there cannot be any range orders, and indication is needed for all meds. DOES ACCEPTING FACILITY REQUIRE COVID TESTING BEFORE DISCHARGE: Other: COVID test resulted negative 08/02 TRANSITION TRANSPORTATION: [employer]; [place]. Wheelchair (P: [phone]) TRANSPORTATION PAYMENT: Family to Pay: At Destination Point TRANSITION CHOICES OFFERED: Swing Bed DOES THE PATIENT HAVE A PRIMARY CARE PHYSICIAN? Yes Mustapha Jones MD PATIENT / SUBSTITUTE DECISION MAKER GOAL UPON TRANSITION: First Choice: Swing Bed PATIENT CHOICE EDUCATION: Choice form completed in Case Management note and copy given to patient/family MEDICARE 3 IP MIDNIGHT CRITERIA MET: Yes: met RESOURCE(S) PROVIDED: Placement and Transportation DOES PATIENT HAVE CLOTHING TO WEAR AT DISCHARGE? Yes ANTICIPATED MODE OF TRANSPORT TO AND FROM FOLLOW UP APPOINTMENTS: As arranged by accepting facility Family Car VERIFIED CORRECT PHARMACY IS ENTERED FOR DISCHARGE: Yes - Pharmacy: [facility] ([facility] [address] [phone] (Phone) METHOD OF PRESCRIBING MEDICATIONS: Medications to be E-prescribed to above pharmacy TRANSITION ROUNDING COMPLETED WITH THE FOLLOWING: Patient / family Industrial Sales Manager Attending Bedside RN Discussed in person Discussed via telephone Secure chat COMMENTS / PATIENT AND FAMILY RESPONSE TO PLAN: Met with patient and family at bedside to review discharge plan. Patient will discharge to [facility] in [place], [place]. Transportation arranged via [employer] wheelchair for pickup at 1:45pm. Reviewed cost of transportation, family agreeable to private pay. [facility] THERESE ALVARADO submitted on August 03, 2020 at 10:37:57 AM CDT. The confirmation number is [id number]. CURRENT READMISSION RISK SCORE / HANDOFF: Predictive Risk Score Risk of Unplanned Readmission: 25.6 Handoff given: N/A SIGNED: DAWIT Tyler Snack Steward Case Management [facility], PRAVEEN P) [phone] Occupational Therapy - Flor Luke, OTR/L - 08/03/2020 11:44 AM CDT Occupational Therapy Acute Care Progress Note Impression/Recommendations Recommend low intensity upon medical stability. Requires sit to stand lift for transfers and assist of 1 for ADLs. Presents with deconditioning, confusion, and decreased strength/endurance.Completed UE exercises while seated in chair. OT will continue to follow per POC to maximize functional strength, activity tolerance, cognition, safety, balance, and independence with ADLs, IADLs, transfers and functional mobility needed for optimal quality of life. Objective Cognition: Alert. Minimally engaging in conversation throughout session. UE: UE exercise performed to increase strength and endurance to further independence with ADLs/IADLs. Pt completed LUE: AROM using 2# weight, RUE: AROM using no weight for 12 reps x 1 for all availablemotions/planes (no weight utilized bilaterally for shoulder flex). OT provided education on correct t echnique, speed and end range. Pt will require reinforcement of this education/training. Occasional rest breaks required d/t weakness, fatigue and decreased activity tolerance. Patient required assistance to track the number of repetitions and maintain proper form throughout each exercise. Oxygen Level: >90% ADLs: Feeding: Not observed Grooming: SetupA to wash face with wash cloth. SetupA to brush teeth, opened toothpaste cap independently Dressing: Total A to don/doff brief Toileting: Total A for melva cares after incontinent BM Transfers: Bed: Not observed Chair: Sit to stand lift utilized to transfer pt to chair. Tolerated standing for ~5 minutes during BM cleanup. Able to put weight throughout B LE's during standing. Toilet: Not observed RN present during therapy session. Non-slip footwear used for safety during OT session. Pt educated on importance of using call light and wait for nursing assistance with OOB/chair activity, patient verbalized understanding. At end of session, pt comfortable in chair and call light, phone and tray table within reach. Chair daisy alarm on for safety. Family at bedside. Pain: No complaints of pain during session Education Education/Training provided:Role of OT, plan of care, functional transfers, discharge recommendations, ADLs, UE exercises Learners:Patient and family Readiness: Acceptance Method of Training: Verbal education, demonstration Response: Verbalized/demonstrated understanding, will benefit from continued reinforcement Adaptive Equipment Recommendations Adaptive Equipment Recommended: further assess pending discharge plan Plan to obtain adaptive equipment: To further assess. Goals Patient/Family Stated Goal for Session:none stated Goals to be met by discharge: Patient will complete UB dressing withsetupassistance Patient will complete LB dressing withminimal assistanceand AE prn (ongoing) Patient will complete toileting task withminimal assistanceincluding hygiene and clothing management (ongoing) Patient will complete functional transfers withcontact guardassistancewith AE PRN (ongoing) Patient will tolerate sittingat sinkto complete grooming/hygiene for >5 minutes with AE as needed (ongoing) Patient will demonstrate understanding of B UE HEP in order to increase strength, coordination, and ROM to facilitate maximized independence in ADLs (ongoing) Patient will further participate with cognitive assessment to increase safety with functional tasks Patient continues to progress towards goals. Charges Treatment/Minutes: Today's Evaluation/Treatment Self care/home management: 18 minutes Therapeutic exercise: 10 minutes Total Treatment Time: 28 minutes Treatment Session / Weekly Assessment/Plan (Day 5): Cont POC Therapist Alpha Pager Number [phone] Clinical Team - Josie Ford RN - 08/03/2020 6:44 AM CDTShift Summary [id number]: Patient is alert and oriented to place and person. VSS on room air, pt wearing BiPAP overnight. PRN Tylenol given for c/o generalized body ache, repositioning patient frequently. Pt reports reliefwith Tylenol. Patient is incontinent of stool and urine, using barrier cream to prevent skin breakdown. Betadine paint applied to right toes, lesion is healed with scab, no drainage noted. AM Blood glucose 67, pt asymptomatic, provider notified. 15g carb given, rechecked blood glucose level 156. Bed alarm for safety. Will continue to monitor. are Planning - Josie Ford RN - 08/02/2020 11:53 PM CDT Problem: ACUTE CONFUSION Goal: COGNITIVE ORIENTATION Description: DEFINITION: Ability to identify person, place, and time accurately. 1 = Severely compromised, 2 = Substantially compromised, 3 = Moderately compromised, 4 = Mildly compromised, 5 = Not compromised. Outcome: NOC Rating 3 Flowsheets (Taken 08/02/20202351) Initial Score: 3 Target Score: 5 Plan of care reviewed with: Patient Patient specific goal for the day: Improve cognition, get adequate rest this shift. Patient specific goal for the stay: Return to cognitive baseline by time of discharge. Achieve goal for stay: By discharge Patient Progress: Patient alert and oriented x2-3, Appears comfortable, is calm and cooperative. BiPAP on while sleeping. Will continue to monitor. Problem: RISK FOR FALLS Goal: FALL PREVENTION BEHAVIOR Description: DEFINITION: Personal or family rn care manager actions to minimize risk factors that might precipitate falls in the personal environment. 1=Never demonstrated, 2=Rarely demonstrated, 3=Sometimes demonstrated, 4=Often demonstrated, 5=Consistently demonstrated. Outcome: NOC Rating 3 Flowsheets (Taken 08/02/20202351) Initial Score: 3 Target Score: 4 Plan of care reviewed with: Patient Patient specific goal for the day: Use call light, follow fall prevention protocol. Patient specific goal for the stay: Remain free of fall. Achieve goal for stay: By discharge Patient Progress: Bed and chair alarm maintained at all times. Patient frequently oriented to use call light, verbalizes understanding. frequent rounds done. Will continue to monitor. ase Mgmt - Adrianna Espinal LSW - 08/02/2020 4:01 PM CDTCASE MANAGEMENT / SOCIAL SERVICE TRANSITION PLAN - PROGRESS NOTE PLAN: Awaiting Patient/Family Decision Regarding Plan of Care Awaiting Medical Doctor Recommendations for Transition Will Continue to Follow for Support and Progression Towards Final Transition Plan BARRIERS TO TRANSITION: Awaiting Collateral Information Discharge Needs to be Determined Medical barriers:medical stability; tele, ID following, IV Ceftriaxone, RT/PT/OT/cardiac rehab following DOES ACCEPTING FACILITY REQUIRE COVID TESTING BEFORE DISCHARGE: Needs one negative test within 24-48 hours COMMENTS / PATIENT AND FAMILY RESPONSE TO PLAN: Chart review completed. PT/OT recommending low-intensity setting. Pt/family agreeable. Preference is for [facility] in [place], [place]. Goal upon discharge will be to go to [facility] upon dc. Prior to dc, pt will need COVID test for admission. Did review that pt is fully vaccinated, [facility] still requiring covid test. Will complete [place] upon dc. Per ID: continue IV Ceftriaxone thru 08/04/20, reviewed with Anastasia at [facility] and [place]AS[place] At [place], [facility] will also need a MD to MD: Dr. Karla Gonsalves ([phone]). Will continue to follow, await treatment team recommendations and provide discharge options as appropriate. IS PATIENT'S ADMISSION ASSOCIATED WITH TIA, ISCHEMIC, OR HEMORRHAGIC STROKE?: No PATIENT / SUBSTITUTE DECISION MAKER GOAL UPON TRANSITION: First Choice: Swing Bed ANTICIPATED NEEDS UPON TRANSITION: Swing Bed RESOURCE(S) PROVIDED: Placement ANTICIPATED MODE OF TRANSPORT UPON TRANSITION: Family Car ANTICIPATED MODE OF TRANSPORT TO AND FROM FOLLOW UP APPOINTMENTS: As arranged by accepting facility Family Car VERIFIED CORRECT PHARMACY IS ENTERED FOR DISCHARGE: Yes - Pharmacy: [facility] ([facility] [address] [phone] (Phone) TRANSITION ROUNDING COMPLETED WITH THE FOLLOWING: Industrial Sales Manager SIGNED: DAWIT Tyler Snack Steward Case [facility] [phone] Nutrition Team - Samm Drummond RD - 08/02/2020 3:29 PM CDT Nutrition Therapy Follow Up Hospital Day: 12 days Active Problems: Small SAH (Stable) Encephalopathy (Resolved) Troponin Elevation Presumed NSTEMI Type II likely 2/2 CHF Exacerbation Acute on Chronic CHF Exacerbation DEVANTE on CKD Stage III Mild COPD Exacerbation ?CAP, Asp PNA GPC Bacteremia Presumed UTI Hypokalemia PMH:HTN, Mild dementia, Chronic Afib, HLD, T2DM Recommendations: Pt needs help with opening containers and lids on meal trays Assist pt with ordering meals and tray setup if family isn't present NUTRITION ASSESSMENT Anthropometrics: Height: 198.1 cm (6' 6") Admission Weight: Weight: (!) 143.6 kg (316 lb 8 oz) as of 07/21/2020 per bed scale Most Recent Weight: Weight: (!) 147 kg (324 lb 1.6 oz) (08/02/20 0543) per bed scale Lowest Weight Since Admission: 138.3 kg Weight Change: +3.4 kg (+7.5 lb) since admission BMI: Body mass index is 37.45 kg/m. IBW: 95kg %IBW:1 51% (based onadmitweight) Usual Body Weight:>300lb Unintentional Weight Loss:No significant wt change noted Adjusted Body Weight:107kg Estimated Needs: 2275kcal/day([employer] St. Jeor w2Eejxb: Admission Weight) 86-107gm protein(0.8-1gm/kg Using:Adjusted Body Weight) Fluids per MD Estimated average intake over the last 4 days: 1500 kcal and 65 gm protein, which meets: 66% of estimated kcal needs and 76% of estimated protein needs. Intake Records: Intake Prior to Admit: Obtained diet history from pt's and son.Pt sleeping at time of visit.His makes meals. They don't follow any particular diet, but do somewhat watch carbs.Per son, his morning blood sugars have been in the 90's recently. Current Intake: Spoke with pt and today. Meeting <75% of kcal needs, though consuming 100% of meals per EMR. Per , he needs someone to open lids/containers for him. Encouraged more protein w/ meals. They declined scheduling snacks/supplements. Current Diet: Nutrition (From admission, onward) Start Ordered 07/27/20 1405 Diet - Heart Healthy Now Question: Modified Diets Answer: Heart Healthy 07/27/20 1401 Physical Assessment: Edema: (per spud driller at 0802 today) ? LUE Edema Trace ? RUE Edema Trace ? LLE Edema 2 ? RLE Edema 2 GI Assessment: ? Abdominal exam: WDL, per spud driller at 0802 today. ? Stool Frequency: 0-1x/day over the last 4 days Wounds/Pressure Points: (per spud driller at 0802 today) ? Heel Blanchable Redness ? Nose Bridge, skin breakdown Functional Status: PT Following OT Following Weakness deconditioning Nutrition Focused Physical Exam: Completed by RD on 07/29 Below the Eye (fat): Slightly Bulged Fat Pads (Within Defined Limits) Gnosticism (muscle): Able to see/feel well-defined muscle (Within defined limits) Buccal (fat): Full, round/filled out cheeks (Within defined limits) Clavicle (muscle): Bone not prominent (Within defined limits) Shoulder (muscle)/Deltoid muscle: Rounded curves at arm/shoulder/neck (Within defined limits) Triceps/Biceps (fat): Ample fat tissue obvious between folds of skin (Within defined limits) Hand/Interosseous (muscle): Flat to bulging muscle (Within defined limits) Nutritionally-Relevant Medications, Vitamins and Minerals: Amlodipine, Antibiotics, Hydralazine, Novolog, Lantus, Remeron, MIralax, Statin Nutritionally-Relevant Biochemical Data: (08/02/2020) Glucose 105 H BUN 86 H Creatinine 2.05 H Magnesium 2.8 H GFR 31 L Allergies/Food Intolerance: Stephen has No Known Allergies. Culturally Shinto Needs: no INTERVENTIONS Encouraged adequate calories and optimal protein in small, frequent meals and snacks Offered oral nutritional supplements - patient/ declined MONITORING/EVALUATION Monitor ability to consume and tolerate adequate intake to approximate estimated needs with accomodation of preferences and tolerances until intake is sustained within desirable limits Monitor I&O, weight trends, nutrition-related labs and medications, clinical status, and planof care r/t need for nutrition intervention and provide as warranted Nutrition Therapy will reassess every 1-[address], LRD [facility] Pager #[phone] espiratory Therapy - Evette Harrington RRT - 08/02/2020 3:13 PM CDT Pt was seen for scheduled daily Anoro. It was given at 1245 due to pt sleeping and then was busy earlier in the day. Pt was on RA, SpO2 100%, RR 32, BS clear/diminished. RT to follow. linical Team - Nawaf Richards, RN - 08/02/2020 12:55 PM CDTPt. A/O*4 VSS on RA Up ez stand/lift Summary Patient has new skin breakdown on the bridge of his nose from his Bipap. Safety report completed. Spoke with family, spoke with RT. Patient incontinent of urine. Patient does need help getting food setup in front of him per family. Bipap at night. Patient did have full dinner. Wound care done to toe on R leg hysical Therapy - Lars Alcazar, PT - 08/02/2020 11:39 AM CDT Physical Therapy Acute Inpatient Treatment Note ASSESSMENT/RECOMMENDATIONS Patient is very weak and deconditioned. He will need continued physical therapy at a low intensity setting upon discharge. Activity Prescription with Nursing: Sit at edge of bed 3 times per day, place feet on floor if possible. Use assist of 2 Transfer to chair 3 times per day using [id number] lift. Encourage patient to perform personal cares when sitting up. Use commode instead of bed fiore. Use assist of 2 Anticipated D/C Service needs: Low intensity setting SUBJECTIVE Left flank pain. Agreeable to PT. OBJECTIVE Bed Mobility: Max assist of one. Transfers: Sit to/from stand with dbr-mo-mssry lift. Tolerates 4 stands, worked on posture. Gait: Unable. Stairs: Unable. Balance Training: Fair static sitting balance. Other: Up in chair upon conclusion of PT. Call button within reach. Education: Discussed the importance of continued activity during acute stay. Educated nursing on how to use [id number]-oh-erykw lift. Response to Activity: Observation: no change from baseline Interdisciplinary Communication: Spoke with interdisciplinary team members regarding patient plan ofcare. PLAN Continue plan of care. 0 Today's Treatment: Gait Trainin minutes Therapeutic Exercise: 0 minutes Therapeutic Activity: 30 minutes TOTAL TIMED CODES: 30 minutes TREATMENT TOTAL TIME: 30 minutes Lars Alcazar PT, DPT Board-Certified Clinical Specialist in Geriatric Physical Therapy Certified Exercise Expert for Aging Adults Pager: [phone] are Planning - Nawaf Richards RN - 08/02/2020 11:28 AM CDT Problem: RISK FOR FALLS Goal: FALL PREVENTION BEHAVIOR Description: DEFINITION: Personal or family rn care manager actions to minimize risk factors that might precipitate falls in the personal environment. 1=Never demonstrated, 2=Rarely demonstrated, 3=Sometimes demonstrated, 4=Often demonstrated, 5=Consistently demonstrated. Outcome: NOC Rating 3 Flowsheets (Taken 08/02/2020 1128) Initial Score: 3 Target Score: 4 Patient specific goal for the day: Use call light, follow fall prevention protocol. Patient specific goal for the stay: Remain free of fall. Achieve goal for stay: By discharge [facility] - Karla Best EP - 08/02/2020 9:56 AM CDTPt continues to not be appropriate for inpatient cardiac rehab at this time. We will sign off. linical Team - Josie Ford RN - 08/02/2020 6:09 AM CDTPatient is alert and oriented to person and place. VSS on room air, BiPAP overnight. Patient denies pain and shortness of breath. Betadine paint applied to right foot. Patient sleeping comfortably throughout the night, repositioning frequently. Bed alarm in place for safety. Will continue to monitor. are Planning - Josie Ford RN - 08/01/2020 10:37 PM CDT Problem: ACUTE CONFUSION Goal: COGNITIVE ORIENTATION Description: DEFINITION: Ability to identify person, place, and time accurately. 1 = Severely compromised, 2 = Substantially compromised, 3 = Moderately compromised, 4 = Mildly compromised, 5 = Not compromised. Outcome: NOC Rating 3 Flowsheets (Taken 08/01/20202230) Initial Score: 2 Target Score: 5 Plan of care reviewed with: Patient Patient specific goal for the day: Improve cognition, get adequate rest this shift. Patient specific goal for the stay: Return to cognitive baseline by time of discharge. Achieve goal for stay: By discharge Patient Progress: Patient alert and oriented x2-3, Appears comfortable, is calm and cooperative. Will continue to monitor. Problem: RISK FOR FALLS Goal: FALL PREVENTION BEHAVIOR Description: DEFINITION: Personal or family rn care manager actions to minimize risk factors that might precipitate falls in the personal environment. 1=Never demonstrated, 2=Rarely demonstrated, 3=Sometimes demonstrated, 4=Often demonstrated, 5=Consistently demonstrated. Outcome: NOC Rating 3 Flowsheets (Taken 08/01/20202230) Initial Score: 3 Target Score: 4 Plan of care reviewed with: Patient Patient specific goal for the day: Use call light, follow fall prevention protocol. Patient specific goal for the stay: Remain free of fall. Achieve goal for stay: By discharge Patient Progress: Bed and chair alarm maintained at all times. Patient frequently oriented to use call light, verbalizes understanding. frequent rounds done. Will continue to monitor. are Planning - Erin Doshi RN - 08/01/2020 2:42 PM CDT Problem: ACUTE CONFUSION Goal: COGNITIVE ORIENTATION Description: DEFINITION: Ability to identify person, place, and time accurately. 1 = Severely compromised, 2 = Substantially compromised, 3 = Moderately compromised, 4 = Mildly compromised, 5 = Not compromised. Outcome: NOC Rating 3 Flowsheets (Taken 08/01/2020 1441) Plan of care reviewed with: Patient Patient specific goal for the day: Patient will be able to oriented througout shift. Patient specific goal for the stay: Return to cognitive baseline by time of discharge. Achieve goal for stay: By discharge Patient Progress: Pt AOx2. follows commands. Problem: RISK FOR FALLS Goal: FALL PREVENTION BEHAVIOR Description: DEFINITION: Personal or family rn care manager actions to minimize risk factors that might precipitate falls in the personal environment. 1=Never demonstrated, 2=Rarely demonstrated, 3=Sometimes demonstrated, 4=Often demonstrated, 5=Consistently demonstrated. Outcome: NOC Rating 3 Flowsheets (Taken 08/01/2020 1441) Plan of care reviewed with: Patient Patient specific goal for the day: Pt will remain call light appropriate and wait for asisstance from staff when needed. Patient specific goal for the stay: Remain free of falls for remaining hospitalization Achieve goal for stay: By discharge Patient Progress: Bed alarm on, family at bedside linical Team - Erin Doshi RN - 08/01/2020 2:38 PM CDTAOx2 VSS on RA Denies pain, denies sob Tele running SV renan with HR in 50's Respiratory Therapy - Vamsi Layne RRT - 08/01/2020 9:40 AM CDT COPD Patient admitted for COPD Exacerbation SpO2: 98 % O2 Device: Room Air Breath Sounds Score: Normal to Clear Dyspnea (SOB) Score: Slight Total BTAS COPD Score: 1 Bronchodilator Therapy Assessment Score Breath Sounds 0 Normal/Clear 1 End Expiratory Wheeze 2 Pronounced Expiratory Wheeze 3 Inspiratory & Expiratory Wheeze 4 Absent or Near Absent Dyspnea 0 None 1 Slight 2 Mild 3 Moderate 4 Severe Total Score 0 1-2 3-4 5-6 7-8 Frequency CHARLES Q4H PRN for increased shortness of breath; continue long-acting bronchodilators CHARLES Q4H PRN for increased shortness of breath; start long - acting bronchodilators CHARLES and Anticholinergic every 4 hours and CHARLES Q2 prn; consider starting long - acting bronchodilators Every 2 hours; if on continuous, then wean CHARLES by 5 mg/hr as tolerated down to 5 mg/hr Every 1 hour up to three treatments then start continuous CHARLES and Anticholinergic Use CHARLES Albuterol 2.5mg and Anticholinergic ipratropium 0.5mg unless continuous therapy is indicated, then use: CHARLES Albuterol 15mg/hr and Anticholinergic ipratropium 0.5mg/hr, wean dose as indicated above. InCheck Dial Flow (L/min): -50 L/min Plan to continue Daily anoro and will continue to assess patient every 4 hours per COPD protocol. espiratory Therapy - Jennifer Bertrand RRT - 08/01/2020 6:15 AM CDTPatient wore CPAP +8 30% all night. No difficulty noted. linical Team - Karla Lawrence RN - 08/01/2020 5:25 AM CDTVSS on CPAP at night and RA when not using CPAP. Cooperative with cares and tolerates. Melva cares with each repositioning every minimum of two hours. Tele rhythm has been sinus in the 60s to afib in the 60s. Denies having pain. Will continue to check blood sugars per jun. are Planning - Karla Lawrence RN - 08/01/2020 5:24 AM CDT Problem: RISK FOR FALLS Goal: FALL PREVENTION BEHAVIOR Description: DEFINITION: Personal or family rn care manager actions to minimize risk factors that might precipitate falls in the personal environment. 1=Never demonstrated, 2=Rarely demonstrated, 3=Sometimes demonstrated, 4=Often demonstrated, 5=Consistently demonstrated. Outcome: NOC Rating 5 Flowsheets (Taken 08/01/2020 0523) Initial Score: 3 Target Score: 4 Plan of care reviewed with: Patient Patient specific goal for the day: Pt will remain call light appropriate and wait for asisstance from staff when needed. Patient specific goal for the stay: Remain free of falls for remaining hospitalization Patient Progress: Bed alarm activated at night. Provided pt cares and repositioning every two hours linical Team - Charlie Mcrae RN - 07/31/2020 6:40 PM [id number] VSS on RA, A/O x3. Pt using stand lift for transfers. Pt is incontinent with bowel and bladder, pericares performed after each incontinent episode, no BM this shift. are Planning - Charlie Mcrae RN - 07/31/2020 6:30 PM CDT Problem: RISK FOR FALLS Goal: FALL PREVENTION BEHAVIOR Description: DEFINITION: Personal or family rn care manager actions to minimize risk factors that might precipitate falls in the personal environment. 1=Never demonstrated, 2=Rarely demonstrated, 3=Sometimes demonstrated, 4=Often demonstrated, 5=Consistently demonstrated. Outcome: NOC Rating 3 Flowsheets (Taken 07/31/2020 1940) Plan of care reviewed with: Patient Patient specific goal for the day: Pt will remain call light appropriate and wait for asisstance from staff when needed. Patient specific goal for the stay: Remain free of falls for remaining hospitalization Achieve goal for stay: By discharge Patient Progress: Bed and chair alarm in place for safety. Pt using call light when needed, but occasionally is forgetful on how to use Respiratory Therapy - Vamsi Layne RRT - 07/31/2020 1:30 PM CDT COPD Patient admitted for COPD Exacerbation SpO2: 97 % O2 Device: Room Air Breath Sounds Score: Normal to Clear Dyspnea (SOB) Score: None Total BTAS COPD Score: 0 Bronchodilator Therapy Assessment Score Breath Sounds 0 Normal/Clear 1 End Expiratory Wheeze 2 Pronounced Expiratory Wheeze 3 Inspiratory & Expiratory Wheeze 4 Absent or Near Absent Dyspnea 0 None 1 Slight 2 Mild 3 Moderate 4 Severe Total Score 0 1-2 3-4 5-6 7-8 Frequency CHARLES Q4H PRN for increased shortness of breath; continue long-acting bronchodilators CHARLES Q4H PRN for increased shortness of breath; start long - acting bronchodilators CHARLES and Anticholinergic every 4 hours and CHARLES Q2 prn; consider starting long - acting bronchodilators Every 2 hours; if on continuous, then wean CHARLES by 5 mg/hr as tolerated down to 5 mg/hr Every 1 hour up to three treatments then start continuous CHARLES and Anticholinergic Use CHARLES Albuterol 2.5mg and Anticholinergic ipratropium 0.5mg unless continuous therapy is indicated, then use: CHARLES Albuterol 15mg/hr and Anticholinergic ipratropium 0.5mg/hr, wean dose as indicated above. InCheck Dial Flow (L/min): -50 L/min Plan to change Nebulizer to Daily Anoro. Patient seems more appropriate for the inhaler. and will continue to assess patient every 4 hours per COPD protocol. linical Team - Karla Lawrence RN - 07/31/2020 6:34 AM CDTVSS on CPAP at night. Alert and cooperative with cares. Low blood sugar this am, 55, gave dextrose and rechecked for 134. Afib rhythm in the 60s espiratory Therapy - Alexandria Rose RRT - 07/31/2020 6:11 AM CDTPt seen for morning treatments while still sleeping on the V-60 set to CPAP of 8 and 30%. SpO2 of 98%. RR varying from 20-30. BBS are clear and slightly decreased in the bases. No cough is noted at this time. Pt receiving Perforomist BID and Atrovent Q6H. Rt to continue to follow. are Planning - Karla Lawrence RN - 07/31/2020 3:32 AM CDT Problem: RISK FOR FALLS Goal: FALL PREVENTION BEHAVIOR Description: DEFINITION: Personal or family rn care manager actions to minimize risk factors that might precipitate falls in the personal environment. 1=Never demonstrated, 2=Rarely demonstrated, 3=Sometimes demonstrated, 4=Often demonstrated, 5=Consistently demonstrated. Outcome: NOC Rating 4 Flowsheets (Taken 07/31/2020 033) Initial Score: 3 Target Score: 4 Plan of care reviewed with: Patient Patient specific goal for the day: No falls t/o shift. Patient specific goal for the stay: Remain free of falls for remaining hospitalization. Achieve goal for stay: By discharge Note: Bed alarm in place Problem: IMPAIRED SKIN INTEGRITY Goal: WOUND HEALING: PRIMARY INTENTION Description: DEFINITION: Extent of regeneration of cells and tissues following intentional closure. 1=None, 2=Limited, 3=Moderate, 4=Substantial, 5=Extensive (rate granulation, scar formation, decreased wound size). Outcome: NOC Rating 5 Flowsheets (Taken 07/31/2020 0330) Plan of care reviewed with: Patient Patient specific goal for the day: pt will not have skin breakdown Patient specific goal for the stay: no skin breakdown Achieve goal for stay: By discharge Patient Progress: pt is tolerating turns every two hours linical Team - Trinh Schmitt RN - 07/30/2020 3:35 PM CDTPt is A&O to person and place. Pt is vitally stable on 1 L O2. Pt was weaned from 4L's of O2 to 1 L. Pt uses stand up lift to transfer. Pt is currently incontinent and does not inform staff when in need to urinate. Melva cares were provided each time pt was incontinent. Pt received IV abx and is on NS at 50mL/hr, see MAR. NIHSS has been d/c. Neuros were completed every 4 hrs. Pt was repositioned every 2 hours. No acute events occurred throughout this shift. are Planning - Trinh Schmitt RN - 07/30/2020 3:35 PM CDT Problem: IMPAIRED SKIN INTEGRITY Goal: WOUND HEALING: PRIMARY INTENTION Description: DEFINITION: Extent of regeneration of cells and tissues following intentional closure. 1=None, 2=Limited, 3=Moderate, 4=Substantial, 5=Extensive (rate granulation, scar formation, decreased wound size). Outcome: NOC Rating 3 Flowsheets (Taken 07/30/2020 1525) Patient specific goal for the day: Pt will report if they have to urinate. Patient specific goal for the stay: Pt will assist in repositioning and return to baseline. Achieve goal for stay: By discharge Patient Progress: Pt was turned q2h. Pt went up in the chair for all meals. No further skin issues at this time. Occupational Therapy - Flor Luke OTR/Farida - 07/30/2020 3:00 PM CDT Occupational Therapy Acute Care Progress Note Impression/Recommendations Recommend low intensity upon medical stability. Requires sit to stand lift for transfers and assist of 1 for ADLs. Presents with deconditioning, confusion, and decreased strength/endurance.OT will continue to follow per POC to maximize functional strength, activity tolerance, cognition, safety, balance, and independence with ADLs, IADLs, transfers and functional mobility needed for optimal quality of life. Objective Cognition: Alert. Oriented to month only. States "I don't know" when asked further orientation questions. Affect appeared to drop at start of session as family had to leave. Oxygen Level: >90% ADLs: Feeding: Not observed Grooming: SetupA to wash face with wash cloth. SetupA to utilize mouth wash with assistance to hold basin Dressing: Total A to don/doff brief Toileting: Total A for melva cares after BM attempt Transfers: Bed: Not observed Chair: Sit to stand lift utilized to transfer pt to and from commode Toilet: Not observed RN present during therapy session. Non-slip footwear used for safety during OT session. Pt educated on importance of using call light and wait for nursing assistance with OOB/chair activity, patient verbalized understanding. At end of session, pt comfortable in chair and call light, phone and tray table within reach. Chair daisy alarm on for safety. Pain: No complaints of pain during session Education Education/Training provided:Role of OT, plan of care, functional transfers, discharge recommendations Learners:Patient and family Readiness: Acceptance Method of Training: Verbal education, demonstration Response: Verbalized/demonstrated understanding, will benefit from continued reinforcement Adaptive Equipment Recommendations Adaptive Equipment Recommended: further assess pending discharge plan Plan to obtain adaptive equipment: To further assess. Goals Patient/Family Stated Goal for Session:none stated Goals to be met by discharge: Patient will complete UB dressing withsetupassistance Patient will complete LB dressing withminimal assistanceand AE prn (ongoing) Patient will complete toileting task withminimal assistanceincluding hygiene and clothing management (ongoing) Patient will complete functional transfers withcontact guardassistancewith AE PRN (ongoing) Patient will tolerate sittingat sinkto complete grooming/hygiene for >5 minutes with AE as needed Patient will demonstrate understanding of B UE HEP in order to increase strength, coordination, and ROM to facilitate maximized independence in ADLs Patient will further participate with cognitive assessment to increase safety with functional tasks Patient continues to progress towards goals. Charges Treatment/Minutes: Today's Evaluation/Treatment Self care/home management: 24 minutes Total Treatment Time: 24 minutes Treatment Session 2/ Weekly Assessment/Plan (Day 5): Cont POC Therapist [facility] Pager Number [phone] ase Mgmt - Adrianna Espinal, ACETYLENE OPERATOR - 07/30/2020 1:27 PM CDTCASE MANAGEMENT / SOCIAL SERVICE TRANSITION PLAN - PROGRESS NOTE PLAN: Awaiting Patient/Family Decision Regarding Plan of Care Awaiting Medical Doctor Recommendations for Transition Will Continue to Follow for Support and Progression Towards Final Transition Plan BARRIERS TO TRANSITION: Awaiting Collateral Information Discharge Needs to be Determined Medical barriers:medical stability; tele, ID following, IV Ceftriaxone, RT/PT/OT/cardiac rehab following DOES ACCEPTING FACILITY REQUIRE COVID TESTING BEFORE DISCHARGE: Needs one negative test within 24-48 hours COMMENTS / PATIENT AND FAMILY RESPONSE TO PLAN: Chart review completed. Met with patient and at bedside and reviewed discharge plan. Patient isnot medically stable for dc today, Cr is trending up PT/OT recommending low-intensity setting. Pt/family agreeable. Preference is for [facility] in [place], [place]. Spoke with Anastasia today. Provided update that pt is not ready for dc today. They will not be able to accept during the weekend if ready due to limited staff and pts needs. Will touch base with Anastasia on Sunday. Prior to dc, pt will need COVID test for admission. Did review that pt is fully vaccinated, swingbed still requiring covid test. [place] PAS upon dc. Per ID: continue IV Ceftriaxone thru 08/04/20, reviewed with Anastasia at [facility] and [place], [facility] will also need a MD to : Dr. Karla Gonsalves ([phone]). Will continue to follow, await treatment team recommendations and provide discharge options as appropriate. IS PATIENT'S ADMISSION ASSOCIATED WITH TIA, ISCHEMIC, OR HEMORRHAGIC STROKE?: No PATIENT / SUBSTITUTE DECISION MAKER GOAL UPON TRANSITION: First Choice: Swing Bed ANTICIPATED NEEDS UPON TRANSITION: Swing Bed RESOURCE(S) PROVIDED: Placement ANTICIPATED MODE OF TRANSPORT UPON TRANSITION: Family Car ANTICIPATED MODE OF TRANSPORT TO AND FROM FOLLOW UP APPOINTMENTS: As arranged by accepting facility Family Car VERIFIED CORRECT PHARMACY IS ENTERED FOR DISCHARGE: Yes - Pharmacy: [facility] ([facility] [address] [phone] (Phone) TRANSITION ROUNDING COMPLETED WITH THE FOLLOWING: Patient / family Industrial Sales Manager Attending Bedside RN Discussed in person Secure chat SIGNED: DAWIT Tyler Snack Steward Case Management [facility] [place] P) [phone] hysical Therapy - Lars Alcazar, PT - 07/30/2020 1:15 PM CDT Physical Therapy Acute Inpatient Treatment Note ASSESSMENT/RECOMMENDATIONS Patient is very weak and deconditioned. He will need continued physical therapy at a low intensity setting upon discharge. Activity Prescription with Nursing: Sit at edge of bed 3 times per day, place feet on floor if possible. Use assist of 2 Transfer to chair 3 times per day using oxm-kd-hdjga lift. Encourage patient to perform personal cares when sitting up. Use commode instead of bed fiore. Use assist of 2 Anticipated D/C Service needs: Low intensity setting SUBJECTIVE Left flank pain. Agreeable to PT. OBJECTIVE Bed Mobility: Max assist of one. Transfers: Sit to/from stand with upk-fn-kkaix lift. Gait: Unable. Stairs: Unable. Balance Training: Fair static sitting balance. Other: Up in chair upon conclusion of PT. Call button within reach. Education: Discussed the importance of continued activity during acute stay. Educated nursing on how to use osw-np-muqjz lift. Response to Activity: Observation: no change from baseline Interdisciplinary Communication: Spoke with interdisciplinary team members regarding patient plan ofcare. PLAN Continue plan of care. 0 Today's Treatment: Gait Trainin minutes Therapeutic Exercise: 0 minutes Therapeutic Activity: 15 minutes TOTAL TIMED CODES: 15 minutes TREATMENT TOTAL TIME: 15 minutes Lars Alcazar PT, DPT Board-Certified Clinical Specialist in Geriatric Physical Therapy Certified Exercise Expert for Aging Adults Pager: [phone] Respiratory Therapy - Vamsi Layne RRT - 07/30/2020 10:04 AM CDT COPD Patient admitted for COPD Exacerbation SpO2: 99 % O2 Device: CPAP (non-invasive) Cough/Sputum Production: None, Breath Sounds Score: Normal to Clear Dyspnea (SOB) Score: None Total BTAS COPD Score: 0 Bronchodilator Therapy Assessment Score Breath Sounds 0 Normal/Clear 1 End Expiratory Wheeze 2 Pronounced Expiratory Wheeze 3 Inspiratory & Expiratory Wheeze 4 Absent or Near Absent Dyspnea 0 None 1 Slight 2 Mild 3 Moderate 4 Severe Total Score 0 1-2 3-4 5-6 7-8 Frequency CHARLES Q4H PRN for increased shortness of breath; continue long-acting bronchodilators CHARLES Q4H PRN for increased shortness of breath; start long - acting bronchodilators CHARLES and Anticholinergic every 4 hours and CHARLES Q2 prn; consider starting long - acting bronchodilators Every 2 hours; if on continuous, then wean CHARLES by 5 mg/hr as tolerated down to 5 mg/hr Every 1 hour up to three treatments then start continuous CHARLES and Anticholinergic Use CHARLES Albuterol 2.5mg and Anticholinergic ipratropium 0.5mg unless continuous therapy is indicated, then use: CHARLES Albuterol 15mg/hr and Anticholinergic ipratropium 0.5mg/hr, wean dose as indicated above. InCheck Dial Flow (L/min): -50 L/min Plan to continue q6 atrovent and BID formoterol and will continue to assess patient every 4 hours per COPD protocol. Patient has Anoro in bin but was too lethargic and neurally unable to do so in the AM. linical Team - Judy Ambrose RN - 07/30/2020 6:30 AM CDTPatient alert, calm, and cooperative throughout shift. Patient following commands in all extremities and participating in cares. Tele: A-fib. Mechanical lift used for transfers. Cotton D/C at 1400 on 07/29. Patient incontinent of urine x2. Patient did not recognize the need to void. Neuro checks every 4 hours. Patient is orientated consistently to self, able to state month (gets year incorrect), place (will state [place] and immediately state [place]), inconsistently situation (I don't know or I am here because my legs are weak. Patient reported pain throughout the shift. PRN tylenol given. (See MAR) BiPap at night. Patient tolerated well. are Planning - Judy Ambrose RN - 07/30/2020 6:30 AM CDT Problem: ACUTE PAIN Goal: CLIENT SATISFACTION: PAIN MANAGEMENT Description: DEFINITION: Extent of positive perception of nursing care to relieve pain. 1=Not at all satisfied, 2=Somewhat satisfied, 3=Moderately satisfied, 4=Very satisfied, 5=Completely satisfied. Outcome: NOC Rating 3 Flowsheets (Taken 07/30/2020 0930) Target Score: 5 Plan of care reviewed with: Patient Patient specific goal for the day: Patient's pain will be managed so he can rest throughout the night. Patient specific goal for the stay: Patient's pain will be managed without the consistent use of PRNpain medication. Achieve goal for stay: By discharge Patient Progress: Patient reported pain x2 throughout shift. Pain was located in patient's back. PRNtylenol given. Repositioning using Turn assist repositioner and pillows used. Patient was able to rest throughout the night. Will continue to monitor. Clinical Team - Thania Lara RN - 07/29/2020 6:53 PM CDTShift Progress Note: Pt is progressing toward expected outcomes. He was in the chair for all meals. He wore the BIPAP when sleeping this afternoon. He has been on 3 liters when awake. His cotton was removed at 1430. Pt has not voided yet. Pt still confused to time, place and situation. NIHSS scale 5. Unchanged from yesterday. Plan on Swing bed at discharge. Family updated on plan of care. are Planning - Thania Lara RN - 07/29/2020 4:54 PM CDT Problem: RISK FOR SHOCK Goal: INFECTION SEVERITY Description: DEFINITION: Severity of signs and symptoms of infection. 1 = Severe, 2 = Substantial,3 = Moderate, 4 = Mild, 5 = None. Outcome: NOC Rating 3 Flowsheets (Taken 07/29/20201652) Plan of care reviewed with: Patient Patient specific goal for the day: Stable vitals. Patient specific goal for the stay: To return to baseline Achieve goal for stay: By discharge Patient Progress: afebrile, following labs, blood pressure stable. no signs of sepsis, monitoring, Pt still receiving IV rocephin,. Problem: ACUTE CONFUSION Goal: COGNITIVE ORIENTATION Description: DEFINITION: Ability to identify person, place, and time accurately. 1 = Severely compromised, 2 = Substantially compromised, 3 = Moderately compromised, 4 = Mildly compromised, 5 = Not compromised. Outcome: NOC Rating 3 Flowsheets (Taken 07/29/20201652) Plan of care reviewed with: Patient Patient specific goal for the day: Patient will be able to oriented througout shift. Patient specific goal for the stay: Return to cognitive baseline by time of discharge. Achieve goal for stay: By discharge Patient Progress: Pt only orientated to self. He thought it was October and he was in [place]. Pt easily directed. Will cotinue to monitor. ase Mariya - Adrianna Espinal LSW - 07/29/2020 2:59 PM CDTCASE MANAGEMENT / SOCIAL SERVICE TRANSITION PLAN - PROGRESS NOTE PLAN: Awaiting Patient/Family Decision Regarding Plan of Care Awaiting Medical Doctor Recommendations for Transition Will Continue to Follow for Support and Progression Towards Final Transition Plan BARRIERS TO TRANSITION: Awaiting Collateral Information Discharge Needs to be Determined Medical barriers:medical stability; tele, ID following, IV Ceftriaxone, RT/PT/OT/cardiac rehab following DOES ACCEPTING FACILITY REQUIRE COVID TESTING BEFORE DISCHARGE: Needs one negative test within 24-48 hours COMMENTS / PATIENT AND FAMILY RESPONSE TO PLAN: Chart review completed. PT/OT recommending low-intensity setting. Pt/family agreeable. Preference is for [facility] in [place], [place]. Spoke with Anastasia today. Updated clinicals have been provided to [facility]. Anastasia states they will review clinicals and will be able to offer pt a bed upon medical stability. Pt anticipated to be ready for dc in 1-2 days per MD. Prior to dc, pt will need COVID test for admission. Did review that pt is fully vaccinated, [facility] still requiring covid test. Will complete [place] PAS upon dc. Per ID: continue IV Ceftriaxone thru 08/04/20, reviewed with Anastasia at [facility] and [place] [facility] [place], [facility] will also need a MD to MD: Dr. Karla Gonsalves ([phone]). Will continue to follow, await treatment team recommendations and provide discharge options as appropriate. IS PATIENT'S ADMISSION ASSOCIATED WITH TIA, ISCHEMIC, OR HEMORRHAGIC STROKE?: No PATIENT / SUBSTITUTE DECISION MAKER GOAL UPON TRANSITION: First Choice: Swing Bed ANTICIPATED NEEDS UPON TRANSITION: Swing Bed RESOURCE(S) PROVIDED: Placement ANTICIPATED MODE OF TRANSPORT UPON TRANSITION: Family Car ANTICIPATED MODE OF TRANSPORT TO AND FROM FOLLOW UP APPOINTMENTS: As arranged by accepting facility Family Car VERIFIED CORRECT PHARMACY IS ENTERED FOR DISCHARGE: Yes - Pharmacy: [facility] Pharm[facility] ([facility] [address] [phone] (Phone) TRANSITION ROUNDING COMPLETED WITH THE FOLLOWING: Industrial Sales Manager Attending Bedside RN Secure chat SIGNED: DAWIT Tyler Snack Steward Case Management [facility] P) [phone] hysical Therapy - Lars Alcazar, PT - 07/29/2020 1:58 PM CDT Physical Therapy Acute Inpatient Treatment Note ASSESSMENT/RECOMMENDATIONS Patient is very weak and deconditioned. He will need continued physical therapy at a low intensity setting upon discharge. Activity Prescription with Nursing: Sit at edge of bed 3 times per day, place feet on floor if possible. Use assist of 2 Transfer to chair 3 times per day using qhu-yn-esqep lift. Encourage patient to perform personal cares when sitting up. Use commode instead of bed fiore. Use assist of 2 Anticipated D/C Service needs: Low intensity setting SUBJECTIVE Left flank pain. Agreeable to PT. OBJECTIVE Bed Mobility: Max assist of one. Transfers: Sit to/from stand with rzh-br-qscic lift. 5 stands completed with average standing timeof 1-2 minutes, max of 4 minutes. Worked on glute facilitation to stand more upright. Gait: Unable. Stairs: Unable. Balance Training: Fair static sitting balance. Other: Returned to bed following PT intervention. Call button within reach. Education: Discussed the importance of continued activity during acute stay. Response to Activity: Observation: no change from baseline Interdisciplinary Communication: Spoke with interdisciplinary team members regarding patient plan ofcare. PLAN Continue plan of care. 0 Today's Treatment: Gait Trainin minutes Therapeutic Exercise: 0 minutes Therapeutic Activity: 27 minutes TOTAL TIMED CODES: 27 minutes TREATMENT TOTAL TIME: 27 minutes Lars Alcazar PT, DPT Board-Certified Clinical Specialist in Geriatric Physical Therapy Certified Exercise Expert for Aging Adults Pager: [phone] utrition Team - Samm Drummond RD - 07/29/2020 10:38 AM CDT Nutrition Therapy Follow Up Hospital Day: 8 days Active Problems: Small SAH (Stable) Encephalopathy (Resolved) Troponin Elevation Presumed NSTEMI Type II likely 2/2 CHF Exacerbation Acute on Chronic CHF Exacerbation DEVANTE on CKD Stage III Mild COPD Exacerbation ?CAP, Asp PNA GPC Bacteremia Presumed UTI Hypokalemia PMH:HTN, Mild dementia, Chronic Afib, HLD, T2DM Recommendations: Heart Healthy diet when medically appropriate. Assist pt with ordering meals and tray setup if family isn't present NUTRITION ASSESSMENT Anthropometrics: Height: 198.1 cm (6' 6") Admission Weight: Weight: (!) 143.6 kg (316 lb 8 oz) as of 07/21/2020 per bed scale Most Recent Weight: Weight: (!) 141.7 kg (312 lb 8 oz) (07/28/20 0601) per bed scale Lowest Weight Since Admission: 138.3 kg Weight Change: -1.9 kg (-4.2 lb) since admission BMI: Body mass index is 36.11 kg/m. IBW: 95kg %IBW:1 51% (based onadmitweight) Usual Body Weight:>300lb Unintentional Weight Loss:No significant wt change noted Adjusted Body Weight:107kg Estimated Needs: 2275kcal/day([employer] St. Jeor e0Dspld: Admission Weight) 86-107gm protein(0.8-1gm/kg Using:Adjusted Body Weight) Fluids per MD Estimated average intake over the last 2 days: 07/28 - 1070 kcal and 56 gm protein 07/27 - 490 kcal and 40 gm protein - npo until afternoon for procedures Intake Records: Intake Prior to Admit: Obtained diet history from pt's and son.Pt sleeping at time of visit.His makes meals. They don't follow any particular diet, but do somewhat watch carbs.Per son, his morning blood sugars have been in the 90's recently. Current Intake: Eating 100% of meals so far today (~1,000 kcals). Has been meeting <75% of kcal needs overall. Current Diet: Nutrition (From admission, onward) Start Ordered 07/27/20 1405 Diet - Heart Healthy Now Question: Modified Diets Answer: Heart Healthy 07/27/20 1401 07/26/20 0805 NPO FOR PROCEDURE ONLY CONTINUOUS NRSG Comments: For adult patient; no food x 8 hours prior to procedure, may have clear liquids up to 2 hours before procedure. For pediatric patient; per Anesthesia Protocol. 07/26/20 0801 Physical Assessment: Edema: (per spud driller at 0846 today) ? LLE Edema 2 ? RLE Edema 2 GI Assessment: ? Abdominal exam: WDL, per spud driller at 0846 today. ? Stool Frequency: 0-1x/day over the last 2 days Wounds/Pressure Points: (per spud driller at 0846 today) ? WDL Functional Status: PT Following Deconditioning Nutrition Focused Physical Exam: Completed by RD on 07/29/2020 Below the Eye (fat): Slightly Bulged Fat Pads (Within Defined Limits) Gnosticism (muscle): Able to see/feel well-defined muscle (Within defined limits) Buccal (fat): Full, round/filled out cheeks (Within defined limits) Clavicle (muscle): Bone not prominent (Within defined limits) Shoulder (muscle)/Deltoid muscle: Rounded curves at arm/shoulder/neck (Within defined limits) Triceps/Biceps (fat): Ample fat tissue obvious between folds of skin (Within defined limits) Hand/Interosseous (muscle): Flat to bulging muscle (Within defined limits) Nutritionally-Relevant Medications, Vitamins and Minerals: Amlodipine, Antibiotics, Hydralazine, Novolog, Lantus, Remeron, Miralax, Statin Nutritionally-Relevant Biochemical Data: (07/29/2020) Glucose 229 H BUN 79 H Creatinine 2.03 H Magnesium 2.6 H GFR 32 L Allergies/Food Intolerance: Stephen has No Known Allergies. Culturally Shinto Needs: no INTERVENTIONS Encouraged adequate calories and optimal protein in small, frequent meals and snacks Offered snacks/oral nutritional supplements - patient declined Conducted NFPE MONITORING/EVALUATION Monitor ability to consume and tolerate adequate intake to approximate estimated needs with accomodation of preferences and tolerances until intake is sustained within desirable limits Monitor I&O, weight trends, nutrition-related labs and medications, clinical status, and planof care r/t need for nutrition intervention and provide as warranted Nutrition Therapy will reassess every 1-[address], LRD [place] Pager #[phone] espiratory Therapy - Vamsi Layne RRT - 07/29/2020 9:19 AM CDT Patient seen on CPAP 8, 30% BS clear and diminished. sats 96%. Currently receiving BID perforomsit and q6 atrovent. After nebulizer done, switched patient to 3L NC, now satting 94-95%. Will continue to follow. linical Team - Judy Ambrose RN - 07/29/2020 6:30 AM CDTPatient frustrated and restless throughout night. Patient hesitant to reposition off of back. Education provided. Patient would slide off pillow to lay on back. Patient repositioned with moderate assist of 2. Two positioning devices found under patient, one positioning device removed to reduce the risk of skin breakdown. CPAP on at night. Patient denies pain. Will continue to monitor. Care Planning - Judy Ambrose RN - 07/29/2020 6:30 AM CDT Problem: IMPAIRED SKIN INTEGRITY Goal: WOUND HEALING: PRIMARY INTENTION Description: DEFINITION: Extent of regeneration of cells and tissues following intentional closure. 1=None, 2=Limited, 3=Moderate, 4=Substantial, 5=Extensive (rate granulation, scar formation, decreased wound size). Outcome: NOC Rating 3 Flowsheets (Taken 07/29/2020 09) Plan of care reviewed with: Patient Patient specific goal for the day: Patient will be free from new areas of skin breakdown. Patient specific goal for the stay: Patient will participate in progressive mobility to promote weight redistribution and promote tissue health. Achieve goal for stay: By discharge Patient Progress: Patient turned and reposition every 2 hours. Patient on occasion would slide off positioning device to lay on back. Will continue to monitor. Care Planning - Padmini Lucas RN - 07/28/2020 8:47 PM CDT Problem: RISK FOR SHOCK Goal: INFECTION SEVERITY Description: DEFINITION: Severity of signs and symptoms of infection. 1 = Severe, 2 = Substantial,3 = Moderate, 4 = Mild, 5 = None. Outcome: NOC Rating 4 Flowsheets (Taken 07/28/20202046) Initial Score: 4 Target Score: 5 Plan of care reviewed with: Patient Patient specific goal for the day: Stable vitals. Patient Progress: afebrile, following labs, blood pressure stable. no signs of sepsis, monitoring. linical Team - Padmini Lucas RN - 07/28/2020 8:44 PM CDTPatient pleasant and cooperative, using call light. Up to chair with ceiling lift, turning every 2/h ours. Bed and chair alarms in use. No neuro changes noted, rescue RN called for NIHSS. Yury has red urine, MD was notified per Day RN, flushes easily, no clots. Awaiting placement. hysical Therapy - Lars Alcazar PT - 07/28/2020 3:33 PM CDT Physical Therapy Acute Inpatient Treatment Note ASSESSMENT/RECOMMENDATIONS Patient is very weak and deconditioned. He will need continued physical therapy at a low intensity setting upon discharge. 6-Clicks Basic Mobility Score: 11 Activity Prescription with Nursing: Sit at edge of bed 3 times per day, place feet on floor if possible. Use assist of 2 Transfer to chair 3 times per day using ceiling lift. Encourage patient to perform personal cares when sitting up. Use commode instead of bed fiore. Use assist of 2 Anticipated D/C Service needs: Low intensity setting SUBJECTIVE No complaints of pain. Agreeable to PT. OBJECTIVE Bed Mobility: Not assessed. Transfers: Sit to/from stand with heavy max assist of 2. Several attempts needed before achieving full stand. Only tolerates standing for 5 seconds. Other: Up in chair upon conclusion of PT. Call button within reach. Education: Discussed the importance of continued ambulation during acute stay. Interdisciplinary Communication: Spoke with interdisciplinary team members regarding patient plan ofcare. PLAN Continue plan of care. Today's Treatment: Gait Trainin minutes Therapeutic Exercise: 0 minutes Therapeutic Activity: 15 minutes TOTAL TIMED CODES: 15 minutes TREATMENT TOTAL TIME: 15 minutes Lars [place], PT, DPT Board-Certified Clinical Specialist in Geriatric Physical Therapy Certified Exercise Expert for Aging Adults Pager: [phone] ase Mariya - Adrianna Espinal, ACETYLENE OPERATOR - 07/28/2020 3:01 PM CDTCASE MANAGEMENT / SOCIAL SERVICE TRANSITION PLAN - PROGRESS NOTE PLAN: Awaiting Patient/Family Decision Regarding Plan of Care Awaiting Medical Doctor Recommendations for Transition Will Continue to Follow for Support and Progression Towards Final Transition Plan BARRIERS TO TRANSITION: Awaiting Collateral Information Discharge Needs to be Determined Medical barriers:medical stability; tele, ID following, IV Ceftriaxone, RT/PT/OT/cardiac rehab following DOES ACCEPTING FACILITY REQUIRE COVID TESTING BEFORE DISCHARGE: N/A COMMENTS / PATIENT AND FAMILY RESPONSE TO PLAN: Chart review completed. PT/OT recommending low-intensity setting. Pt/family agreeable. Preference is for [facility] in [place], [place]. Spoke with Anastasia today. Updated clinicals have been provided to [facility]. Anastasia states they will review clinicals and will be able to offer pt a bed upon medical stability. Pt anticipated to be ready for dc in 1-2 days per MD. Prior to dc, pt will need COVID test for admission. Did review that pt is fully vaccinated, [facility] still requiring covid test. Will complete [place] PAS upon dc. Per ID: continue IV Ceftriaxone thru 08/04/20, reviewed with Anastasia at [facility] and [place] [facility] [place], [facility] will also need a MD to MD: Dr. Karla Gonsalves ([phone]). Will continue to follow, await treatment team recommendations and provide discharge options as appropriate. IS PATIENT'S ADMISSION ASSOCIATED WITH TIA, ISCHEMIC, OR HEMORRHAGIC STROKE?: No PATIENT / SUBSTITUTE DECISION MAKER GOAL UPON TRANSITION: First Choice: Swing Bed ANTICIPATED NEEDS UPON TRANSITION: Swing Bed RESOURCE(S) PROVIDED: Placement ANTICIPATED MODE OF TRANSPORT UPON TRANSITION: Family Car ANTICIPATED MODE OF TRANSPORT TO AND FROM FOLLOW UP APPOINTMENTS: As arranged by accepting facility Family Car VERIFIED CORRECT PHARMACY IS ENTERED FOR DISCHARGE: Yes - Pharmacy: [facility] Pharm[facility] ([facility] [address] [phone] (Phone) TRANSITION ROUNDING COMPLETED WITH THE FOLLOWING: Patient / family Industrial Sales Manager Attending Secure chat SIGNED: DAWIT Tyler Snack Steward Case Management [facility] [place] P) [phone] linical Team - Ej Jordan RN - 07/28/2020 2:33 PM [id number] VSS on RA. A&O to person and place, cooperative and redirectable. NIHSS and Neuro's completed asordered, see flow sheets. Pt denied light headedness, SOB, and pain. Cotton in place, cotton care completed. Urine Clear red throughout shift, MD notified. Right radial site clean, dry, and approximated. Pt up with elder lift. Up to chair throughout the day. are Planning - Ej Jordan RN - 07/28/2020 2:33 PM CDT Problem: ACUTE CONFUSION Goal: COGNITIVE ORIENTATION Description: DEFINITION: Ability to identify person, place, and time accurately. 1 = Severely compromised, 2 = Substantially compromised, 3 = Moderately compromised, 4 = Mildly compromised, 5 = Not compromised. Outcome: NOC Rating 4 Flowsheets (Taken 07/28/2020 1111) Initial Score: 1 Target Score: 5 Plan of care reviewed with: Patient Patient specific goal for the day: Patient will be able to oriented througout shift. Patient specific goal for the stay: Return to cognitive baseline by time of discharge. Achieve goal for stay: By discharge Patient Progress: A&O to person and place, cooperative and redirectable. Bed and chair alarms inplace. Will cointue to monitor until 1500. [facility] - Anastasia Lara EP - 07/28/2020 10:48 AM CDTCardiac Rehab Phase 1 Inpatient Note: Diagnosis: stent Physical Activity Completed: Other - patient seated in the chair upon our arrival. He was willing totry some sit to stands. Attempted to stand twice unsuccessfully. Did not have enough strength to fully stand with max assist of 2. Sat back down in chair and repositioned. Ambulation Assistance: max assist of 2 Patient response to Exercise: poor Assessment/Plan: Tolerates activity poorly -Progress as tolerated -Patient referred to outpatient Cardiac Rehab program -Continue to follow until until Discharge -Home activity and exercise teaching completed Recommendation: Physical Therapy Continue Inpatient Cardiac Rehab Plan of Care daily until discharge. Cardiac Rehab [facility] Pager: [phone] Respiratory Therapy - Isabel Casey, JAMESON - 07/28/2020 10:40 AM CDTRT NIV Patient continues on V60 PAP unit for respiratory distress on settings: Mode: CPAP CPAP of 8, FiO2 30% and SpO2 99% Patient: Respiratory Rate: Resp: 16, Mask Type: full face mask Breath Sounds: Breath Sounds Bilateral: Clear;Diminished Cough: Cough: None Secretions: Sputum Amount: None Treatments: continue Perforomist BID and Atrovent Q6 Patient on/off CPAP throughout day. When off pt on RA with SpO2 high 90's. RT will follow per NIV protocol or per physician order. linical Team - Kylie Bauman RN - 07/28/2020 5:14 AM CDTPt. A&Ox2, oriented to person and place. VSS on RA, Cpap at night. Complains of back pain, PRN Tylenol offered. Complaints of not being able to sleep, PRN melatonin given with little effect. Pt. Rep ositioned Q2 hours. Cotton in place draining esequiel/red colored urine. Cotton cares completed. linical Team - Laurel Bocanegra RN - 07/27/2020 10:04 PM CDTOn call Dinorah agarwal NP, notified of positive Blood Culture. "streptococcus agalactiae group B " from [facility] in [place] No new orders received. espiratory Therapy - Ana Meredith, CLINICAL TRAINING COORDINATOR - 07/27/2020 5:29 PM CDTPatient found sitting in chair, eating. SpO2 on RA is 97%. No visible increased WOB is detected. V60/CPaP is in room. RT will continue to follow. linical Team - Rabia Magaña RN - 07/27/2020 5:08 PM CDTPt's VSS on 1L NC. Pt having some back pain PRN Tylenol given and pt put in chair for comfort. Tele afib. Pt down to lab analyst in afternoon. are Planning - Rabia Magaña RN - 07/27/2020 5:08 PM CDT Problem: RISK FOR SHOCK Goal: INFECTION SEVERITY Description: DEFINITION: Severity of signs and symptoms of infection. 1 = Severe, 2 = Substantial,3 = Moderate, 4 = Mild, 5 = None. Flowsheets (Taken 07/27/2020 8737) Initial Score: 3 Target Score: 5 Plan of care reviewed with: Patient Patient specific goal for the day: Stable vitals. Patient specific goal for the stay: To return to baseline Achieve goal for stay: By discharge Patient Progress: Pt's VSS on BiPap. Alternating BiPAP and 1L NC. Afebrile. IV antibiotics as ordered. Problem: RISK FOR FALLS Goal: FALL PREVENTION BEHAVIOR Description: DEFINITION: Personal or family rn care manager actions to minimize risk factors that might precipitate falls in the personal environment. 1=Never demonstrated, 2=Rarely demonstrated, 3=Sometimes demonstrated, 4=Often demonstrated, 5=Consistently demonstrated. Flowsheets (Taken 07/27/2020 9101) Initial Score: 3 Target Score: 5 Plan of care reviewed with: Patient Patient specific goal for the day: No falls t/o shift. Patient specific goal for the stay: Remain free of falls for remaining hospitalization. Achieve goal for stay: By discharge Patient Progress: Sitter discontinued during shift. Bed and chair alarm in place. Pt still confused but not trying to get out of bed alone. ase Mariya - Adrianna Espinal LSW - 07/27/2020 3:00 PM CDTCASE MANAGEMENT / SOCIAL SERVICE TRANSITION PLAN - PROGRESS NOTE PLAN: Awaiting Patient/Family Decision Regarding Plan of Care Awaiting Medical Doctor Recommendations for Transition Will Continue to Follow for Support and Progression Towards Final Transition Plan BARRIERS TO TRANSITION: Awaiting Collateral Information Diagnostic Tests Pending Discharge Needs to be Determined Medical barriers:medical stability; tele, RT/PT/OT, ID following, IV Ceftriaxone, BiPAP, IV lasix, PET scan, RT/PT/OT following, [facility] DOES ACCEPTING FACILITY REQUIRE COVID TESTING BEFORE DISCHARGE: N/A COMMENTS / PATIENT AND FAMILY RESPONSE TO PLAN: Chart review completed. Per ID: SHAMEKA with no vegetation, continue IV Ceftriaxone thru 08/04/20. Pt planned for stress test, but developed chest pain. [facility], stent placed PT/OT recommending low-intensity setting. Pt/family agreeable. Preference is for [facility] in [place], [place]. Updated clinicals have been provided to [facility]. Anastasia states they will review clinicals, but will likely be able to offer pt a bed upon medical stability. Prior to az, pt will need COVID test for admission. Did review that pt is fully vaccinated, [facility] Dr. Karla Gonsalves ([phone]). Will continue to follow, await treatment team recommendations and provide discharge options as appropriate. IS PATIENT'S ADMISSION ASSOCIATED WITH TIA, ISCHEMIC, OR HEMORRHAGIC STROKE?: No PATIENT / SUBSTITUTE DECISION MAKER GOAL UPON TRANSITION: First Choice: Swing Bed ANTICIPATED NEEDS UPON TRANSITION: Swing Bed RESOURCE(S) PROVIDED: Placement ANTICIPATED MODE OF TRANSPORT UPON TRANSITION: Family Car ANTICIPATED MODE OF TRANSPORT TO AND FROM FOLLOW UP APPOINTMENTS: As arranged by accepting facility Family Car VERIFIED CORRECT PHARMACY IS ENTERED FOR DISCHARGE: Yes - Pharmacy: [facility] ([facility] [address] [phone] (Phone) TRANSITION ROUNDING COMPLETED WITH THE FOLLOWING: Patient / family Industrial Sales Manager SIGNED: DAWIT Tyler Snack Steward Case Management [facility] [place] P) [phone] Respiratory Therapy - Evette Harrington, CLINICAL TRAINING COORDINATOR - 07/27/2020 2:39 PM CDT Pt was seen for scheduled Perforomist BID and Atrovent Q6. Pt did not receive 0800 Atrovent and Perforomist due to being unavailable. RT NIV Patient continues on V60 PAP unit for respiratory distress on settings: Mode: CPAP CPAP of 8, 30% Patient: Respiratory Rate: 20. Avergae Vt: they were not consistent. Mask Type: full face mask Blood Gas Result: Lab Results Component Value Date PHVEN 7.45 07/21/2020 PO2VEN 56 (H) 07/21/2020 BASEEXVEN 5 (H) 07/21/2020 Breath Sounds: Breath Sounds Bilateral: Clear;Diminished Treatments: continue Atrovent Q6 and Perforomist BID. RT will follow per NIV protocol or per physician order. Clinical Team - Ely Joseph RN - 07/27/2020 10:15 AM CDTPatient in nuclear medicine for Lexiscan PET stress test. After patient transferred to scanning table he complained of 10/[address] Saldivar notified and ordered trial of Ntg 0.4 mg sl. EKG also done. PET stress test stopped after resting pictures done. No change in chest discomfort after Ntg given. Patient transferred [facility] to [facility]. Patient states chest discomfort less. Dr. Saldivar will evaluate patient in his room. BP 146/76, HR 50's to 60's, afib with RBBB. No change in ekg noted. Report given to patient's nurse Rabia at 1045. Nutrition Team - Samm Drummond RD - 07/27/2020 9:26 AM CDT Nutrition Therapy Follow Up Hospital Day: 6 days Active Problems: Small SAH (Stable) Encephalopathy (Resolved) Troponin Elevation Presumed NSTEMI Type II likely 2/2 CHF Exacerbation Acute on Chronic CHF Exacerbation DEVANTE on CKD Stage III Mild COPD Exacerbation ?CAP, Asp PNA GPC Bacteremia Presumed UTI Hypokalemia PMH: HTN, Mild dementia, Chronic Afib, HLD, T2DM Recommendations: Heart Healthy diet when medically appropriate. Assist pt with ordering meals and tray setup if family isn't present NUTRITION ASSESSMENT Anthropometrics: Height: 198.1 cm (6' 6") Admission Weight: Weight: (!) 143.6 kg (316 lb 8 oz) as of 07/21/2020 per bed scale Most Recent Weight: Weight: (!) 141 kg (310 lb 13.6 oz) (07/27/20 033) per bed scale Lowest Weight Since Admission: 138.3 kg Weight Change: -2.6 kg (-5.7 lb) since admission BMI: Body mass index is 35.92 kg/m. IBW: 95 kg %IBW: 151% (based on admit weight) Usual Body Weight: >300 lb Unintentional Weight Loss: No significant wt change noted Adjusted Body Weight: 107 kg Estimated Needs: 2275 kcal/day ([place] St. Jeor x 1 Using: Admission Weight) 86-107 gm protein (0.8-1 gm/kg Using:Adjusted Body Weight) Fluids per MD Estimated average intake over the last 5 days: 1065 kcal and 84 gm protein, which meets: 47% of estimated kcal needs and 98% of estimated protein needs. Estimated CHO intake over the past 5 days: 07/26 - 163 gm 07/25 - 141 gm 07/24 - 162 gm 07/23 - 121 gm 07/22 - 218 gm Intake Records: Intake Prior to Admit: Obtained diet history from pt's and son. Pt sleeping at time of visit. His makes meals. They don't follow any particular diet, but do somewhat watch carbs. Per son, hismorning blood sugars have been in the 90's recently. Current Intake: Sub-optimal kcal intake, meeting most of protein needs. He is on clear liquids for cardiac cath this afternoon. NPO earlier today for a stress test. Blood sugars have been elevated. Family has been watching his carb intake at meal times. MD has increased his Lantus to his home regimen dosage. Current Diet: Nutrition (From admission, onward) Start Ordered 07/27/20 1220 Diet - Clear Liquid Now Question: Standard Diets Answer: Clear Liquid 07/27/20 1219 07/26/20 1550 CONTINUE DIET ORDERED (PANEL - NPO AFTER MIDNIGHT/CONTINUE DIET ORDERED) ONCE Comments: Patient to remain on previously ordered diet. Call if one is not available. 07/26/20 1546 07/26/20 0805 NPO FOR PROCEDURE ONLY CONTINUOUS NRSG Comments: For adult patient; no food x 8 hours prior to procedure, may have clear liquids up to 2 hours before procedure. For pediatric patient; per Anesthesia Protocol. 07/26/20 0801 Physical Assessment: Edema: (per spud driller at 2210 yesterday) ? LLE Edema 2 ? RLE Edema 2 GI Assessment: ? Abdominal exam: WDL, per spud driller at 2210 yesterday. ? Stool Frequency: Pt has not had a documented BM since admission Wounds/Pressure Points: (per spud driller at 2210 yesterday) ? WDL Functional Status: PT Following OT Following deconditioning Nutrition Focused Physical Exam: No visible losses Nutritionally-Relevant Medications, Vitamins and Minerals: Amlodipine, Antibiotics, Lasix, Hydralazine, Novolog, Lantus, Remeron, Miralax, Statin Nutritionally-Relevant Biochemical Data: (07/27/2020) Glucose 181 H BUN 75 H Creatinine 1.64 H Magnesium 2.6 H GFR 41 L Allergies/Food Intolerance: Stephen has No Known Allergies. Culturally Shinto Needs: no INTERVENTIONS Spoke with pt's and son. Pt sleeping at time of visit. MONITORING/EVALUATION Monitor ability to consume and tolerate adequate intake to approximate estimated needs with accomodation of preferences and tolerances until intake is sustained within desirable limits Monitor I&O, weight trends, nutrition-related labs and medications, clinical status, and planof care r/t need for nutrition intervention and provide as warranted Nutrition Therapy will reassess every 1-[address], LRD [facility] Pager #[phone] linical Team - Art Rasheed RN - 07/27/2020 6:40 AM [id number] - 0700 AO x 2 *person & place VSS on 2L NC *Bipap in place w/ sleep overnight Tele A fib HR 50s - 60s Pt denies pain, dizziness, and N/V. SOB w/ exertion. Neuros intact t/o shift. Frequent turns and repositioning performed t/o shift. Cotton to drainage (see flowsheets for output). Red/Esequiel urine output. NPO after 0000. Plan for PET Stress Test. Will continue to monitor. are Planning - Art Rasheed RN - 07/27/2020 6:40 AM CDT Problem: RISK FOR FALLS Goal: FALL PREVENTION BEHAVIOR Description: DEFINITION: Personal or family rn care manager actions to minimize risk factors that might precipitate falls in the personal environment. 1=Never demonstrated, 2=Rarely demonstrated, 3=Sometimes demonstrated, 4=Often demonstrated, 5=Consistently demonstrated. Flowsheets (Taken 07/27/2020 0421) Initial Score: 3 Target Score: 5 Plan of care reviewed with: Patient Patient specific goal for the day: No falls t/o shift. Patient specific goal for the stay: Remain free of falls for remaining hospitalization. Achieve goal for stay: By discharge Patient Progress: Pt VSS on 2L NC and Bipap with sleep. Sitter in place t/o shift. Bed alarm and chair alarm in place t/o shift. Call light and possessions within reach. Will continue to monitor. Clinical Team - Rabia Magaña RN - 07/26/2020 6:50 PM CDTPt's VSS on 1L NC. Pt complains of back pain. PRN tylenol given and pt put in chair for comfort. Cotton in place. Tele afib. are Planning - Rabia Magaña RN - 07/26/2020 6:50 PM CDT Problem: RISK FOR SHOCK Goal: INFECTION SEVERITY Description: DEFINITION: Severity of signs and symptoms of infection. 1 = Severe, 2 = Substantial,3 = Moderate, 4 = Mild, 5 = None. Flowsheets (Taken 07/26/20201953) Initial Score: 3 Target Score: 5 Plan of care reviewed with: Patient Patient specific goal for the day: Stable vitals. Patient specific goal for the stay: To return to baseline Achieve goal for stay: By discharge Patient Progress: Pt's VSS on BiPap. Alternating BiPAP and 2 1 NC. Afebrile. IV antibiotics as ordered. ase Mariya - Adrianna Espinal LSW - 07/26/2020 1:54 PM CDTCASE MANAGEMENT / SOCIAL SERVICE TRANSITION PLAN - PROGRESS NOTE PLAN: Awaiting Patient/Family Decision Regarding Plan of Care Awaiting Medical Doctor Recommendations for Transition Will Continue to Follow for Support and Progression Towards Final Transition Plan BARRIERS TO TRANSITION: Awaiting Collateral Information Diagnostic Tests Pending Discharge Needs to be Determined Medical barriers:medical stability; tele, RT/PT/OT, ID following, SHAMEKA today, 1L [place] DOES ACCEPTING FACILITY REQUIRE COVID TESTING BEFORE DISCHARGE: N/A COMMENTS / PATIENT AND FAMILY RESPONSE TO PLAN: Chart review completed. Met with pt, , and son at bedside today. PT/OT recommending low-intensity setting. Pt/family agreeable. Preference is for [facility] in [place], [place]. Spoke with Anastasia at [facility] today. Anastasia requested for updated clinicals. She states they will review clinicals, but will likely be able to offer pt a bed upon medical stability. Prior to dc, pt will need COVID test for admission. Did review that pt is fully vaccinated, [facility] still requiring covidtest. At az, [facility] will also need a MD to MD: Dr. Karla Gonsalves ([phone]). Will continue to follow, await treatment team recommendations and provide discharge options as appropriate. IS PATIENT'S ADMISSION ASSOCIATED WITH TIA, ISCHEMIC, OR HEMORRHAGIC STROKE?: No PATIENT / SUBSTITUTE DECISION MAKER GOAL UPON TRANSITION: First Choice: Swing Bed ANTICIPATED NEEDS UPON TRANSITION: Swing Bed RESOURCE(S) PROVIDED: Placement ANTICIPATED MODE OF TRANSPORT UPON TRANSITION: Family Car ANTICIPATED MODE OF TRANSPORT TO AND FROM FOLLOW UP APPOINTMENTS: As arranged by accepting facility Family Car VERIFIED CORRECT PHARMACY IS ENTERED FOR DISCHARGE: Yes - Pharmacy: [facility] [address] [phone] (Phone) TRANSITION ROUNDING COMPLETED WITH THE FOLLOWING: Patient / family Industrial Sales Manager Discussed in person SIGNED: DAWIT Tyler Snack Steward Case Management [facility] [place] P) [phone] Respiratory Therapy - Terri Godinez RRT - 07/26/2020 11:04 AM CDTPatient seen sleeping in bed on the BiPAP. SpO2 96%, BS clear/diminished. Patient continues with Atrovent Q6H and Perforomist BID. Tolerates well. 0915 - Passed by patients room. He was in the chair on 1L NC, SpO2 93%. No sign of increased shortness of breath at this time. RT to follow. hysical Therapy - Mamie Frank MPT - 07/26/2020 10:20 AM CDT Physical Therapy Acute Inpatient Treatment Note ASSESSMENT/RECOMMENDATIONS Patient is weak and deconditioned. He will likely need continued physical therapy at a low intensity setting upon discharge. Currently requires max assist of 1-2 to stand and transfer. Pt. More alert during today's session 6-Clicks Basic Mobility Score: 11 Activity Prescription with Nursing: Transfer to chair 3 times per day using mechanical lift at this time for 30-60 min.. Encourage patient to perform personal cares when sitting up. for 30-60 min. Anticipated D/C Service needs: Low intensity setting SUBJECTIVE Pt. Alert to person, place and time today. OBJECTIVE Bed Mobility: NT Transfers: Partial Sit to/from stand with max assist of 2 from chair. Recommend trying EOB with bed elevated to assist. FWW in front of pt. Therapeutic Exercises: Sitting ex: AROM: marches, kicks and AP'sx 10 reps. Balance Training: Sitting in chair good, dynamic fair Education: Role of PT, plan of care and goals of PT today explained and pt. Accepted teaching and will need reinforcement. Response to Activity: jesus well Interdisciplinary Communication: Spoke with interdisciplinary team members regarding patient plan ofcare. PLAN Continue plan of care. 3X/wk Today's Treatment: Gait Trainin minutes Therapeutic Exercise: 0 minutes Therapeutic Activity: 15 minutes TOTAL TIMED CODES: 15 minutes TREATMENT TOTAL TIME: 15 minutes Mamie Frank PT Occupational Therapy - Flor Luke, OTR/L - 07/26/2020 9:44 AM CDT Occupational Therapy Acute Care Progress Note Impression/Recommendations Recommend low intensity upon medical stability. Requires Max A x 2 to achieve partial stand from chair. Presents with deconditioning, confusion, and decreased strength/endurance. OT will continue to follow per POC to maximize functional strength, activity tolerance, cognition, safety, balance, and independence with ADLs, IADLs, transfers and functional mobility needed for optimal quality of life. Objective Cognition: Alert. Oriented to month and location. Reports year is "2019." Re- orientation provided. Follows directions and attends to tasks well throughout session. Appears to have mild confusion duringconversation. Oxygen Level: >90% seen on .5L O2 ADLs: Feeding: Not observed Grooming: SetupA to wash face with wash cloth Dressing: Not observed Toileting: Not observed, cotton cath Transfers: Bed: Not observed Chair: Max A x 2 to achieve partial stand on 2 attempts. Unable to achieve full stand Toilet: Not observed Comment: Transferring via elder with nursing staff Gait belt and non-slip footwear used for safety during OT session. Pt educated on importance of using call light and wait for nursing assistance with OOB/chair activity, patient verbalized understanding. At end of session, pt comfortable in chair and call light, phone and tray table within reach. Sitter at bedside. Pain: Complaints of pain to R shoulder but unable to provide details Education Education/Training provided: Role of OT, plan of care, functional transfers, discharge recommendations Learners: Patient and family Readiness: Acceptance Method of Training: Verbal education, demonstration Response: Verbalized/demonstrated understanding, will benefit from continued reinforcement Adaptive Equipment Recommendations Adaptive Equipment Recommended: further assess pending discharge plan Plan to obtain adaptive equipment: To further assess. Goals Patient/Family Stated Goal for Session: none stated Goals to be met by discharge: Patient will complete UB dressing withsetup assistance Patient will complete LB dressing withminimal assistanceand AE prn Patient will complete toileting task withminimal assistanceincluding hygiene and clothing management Patient will complete functional transfers withcontact guard assistancewith AE PRN (ongoing) Patient will tolerate sitting at sinkto complete grooming/hygiene for >5 minutes with AE as needed Patient will demonstrate understanding of B UE HEP in order to increase strength, coordination, and ROM to facilitate maximized independence in ADLs Patient will further participate with cognitive assessment to increase safety with functional tasks Patient continues to progress towards goals. Charges Treatment/Minutes: Today's Evaluation/Treatment Therapeutic activity: 14 minutes Total Treatment Time: 14 minutes Treatment Session 04/13 Weekly Assessment/Plan (): Cont POC Therapist [facility] Pager Number [phone] Clinical Team - Josie Ford RN - 07/26/2020 6:30 AM CDTPatient is alert and oriented to self and location. Confused and occasionally getting anxious and agitated, able to calm down with redirection. VSS on 2 L NC and BiPaP overnight. Patient denied pain and discomfort. Cotton in place. Monitoring I/Os. NPO since midnight Betadine paint to right foot toes, lesions clean and dry. No drainage noted. Patient slept most of the shift, repositoned frequently, appears to be comfortable, BiPaP on while sleeping. 1:[address] Following fall prevention protocol. Will continue to monitor. Care Planning - Josie Ford RN - 07/25/2020 11:26 PM CDT Problem: ACUTE CONFUSION Goal: COGNITIVE ORIENTATION Description: DEFINITION: Ability to identify person, place, and time accurately. 1 = Severely compromised, 2 = Substantially compromised, 3 = Moderately compromised, 4 = Mildly compromised, 5 = Not compromised. Outcome: NOC Rating 3 Flowsheets (Taken 07/25/20202321) Initial Score: 3 Target Score: 5 Plan of care reviewed with: Patient Patient specific goal for the day: Imrove cognition, remain oriented and anxiety free. Patient specific goal for the stay: Return to cognitive baseline. Achieve goal for stay: By discharge Patient Progress: Patient oriented to self and location. Alert and awake. 1:[address] reorienting patient as needed. Will continue to monitor. Problem: RISK FOR FALLS Goal: FALL PREVENTION BEHAVIOR Description: DEFINITION: Personal or family rn care manager actions to minimize risk factors that might precipitate falls in the personal environment. 1=Never demonstrated, 2=Rarely demonstrated, 3=Sometimes demonstrated, 4=Often demonstrated, 5=Consistently demonstrated. Outcome: NOC Rating 3 Flowsheets (Taken 07/25/20202321) Initial Score: 2 Target Score: 4 Plan of care reviewed with: Patient Patient specific goal for the day: Remain free of falls Patient specific goal for the stay: maintain and improve baseline mobility Achieve goal for stay: By discharge Patient Progress: Patient up in chair at beginning of this shift. Using elder to transfer patient from bed to chair and vice versa. repositioning frequently. Will continue to monitor. linical Team - Aida Mahmood RN - 07/25/2020 4:45 PM CDTShift summary [id number] Patient is alert and oriented x 2, confused and slightly agitated at times, but easily redirected. VSS on 2 L while awake, BiPAP while sleeping. Up to chair for all meals, turning q2h while in bed. NoBM today. Blood glucose high today- see results review and MAR for meds given. Plan is to continue diuresing. Adequate urine output today. Call light is within reach. Sitter at bedside. Will continue to monitor. are Planning - Aida Mahmood RN - 07/25/2020 4:44 PM CDT Problem: ACUTE CONFUSION Goal: COGNITIVE ORIENTATION Description: DEFINITION: Ability to identify person, place, and time accurately. 1 = Severely compromised, 2 = Substantially compromised, 3 = Moderately compromised, 4 = Mildly compromised, 5 = Not compromised. Outcome: NOC Rating 3 Flowsheets (Taken 07/25/2020 1582) Plan of care reviewed with: Patient Patient specific goal for the day: Imrove cognition. Patient specific goal for the stay: Return to cognitive baseline. Achieve goal for stay: By discharge Patient Progress: Patient oriented to self, situation and location. 1:1 sitter. pt gets agitated at times but able to calm down. Will continue to monitor. espiratory Therapy - Ann Bennett RRT - 07/25/2020 12:56 PM CDTPatient refusing RT treatments and assessment at this time. RT to follow. espiratory Therapy - Ann Bennett RRT - 07/25/2020 10:21 AM CDTRT in to see patient for his morning treatments. Patient refused his Atrovent and Perforomist treatments as well as an RT assessment. Patient informed to call RT if needed. Sitter still at bedside and i nformed of contact information as well. Number left of board. RT to follow. linical Team - Josie Ford RN - 07/25/2020 6:45 AM CDTPatient is alert and oriented x3 (except time). VSS on 2L NC overnight. Neuro checks q4 hours. Cotton in place. Monitoring I/Os. Right foot lesions (digit 2,4) clean and dry, no drainage noted. Betadine paint applied. 2200: Patient getting agitated, pulling on his lines (Cotton & tele), wanting to call his , anxious stating he was going to by morning. Reorienting patient frequently, decreased stimulation,encouraged to rest. Provider notified. One time dose of melatonin given, not effective. PRN TUMS given for report of abdominal discomfort. Patient passing gas, bowel sounds present. [place]: Patient reporting 10/10 pain right lower extremity pain. Paged on-call provider, one time dose of fentanyl given. 0215: Patient reporting continuous abdominal discomfort/pain. Abdominal x-ray done. PRN Hydralazine given for SBP >160. Patient refusing BiPaP overnight, not very cooperative with care, throwing pillows and sheets, trying to hit staff. Patient verbally aggressive at times, stated he was going to kill everyone. Also, refused neb treatment once. Patient slept <1 hour this shift. Repositioning frequently. 1:1 sitter. Will continue to monitor. espiratory Therapy - Jennifer Bertrand RRT - 07/25/2020 2:10 AM CDTInto see patient for scheduled Atrovent neb treatment and patient refused. Patient is not amendable to treatment even with education from check writer salesperson and RN. Patient also very awake and seemed restless in the bed. RN in room and states patient has not been sleeping and has been awake. RT available to placebipap if patient were to become sleepy. Sitter at bedside on writers departure. are Planning - Josie Ford RN - 07/24/2020 10:16 PM CDT Problem: ACUTE CONFUSION Goal: COGNITIVE ORIENTATION Description: DEFINITION: Ability to identify person, place, and time accurately. 1 = Severely compromised, 2 = Substantially compromised, 3 = Moderately compromised, 4 = Mildly compromised, 5 = Not compromised. Outcome: NOC Rating 3 Flowsheets (Taken 07/24/20202208) Initial Score: 3 Target Score: 5 Plan of care reviewed with: Patient Patient specific goal for the day: Imrove cognition. Patient specific goal for the stay: Return to cognitive baseline. Achieve goal for stay: By discharge Patient Progress: Patient oriented to self, situation and location. 1:1 sitter. pt gets agitated at times but able to calm down. Will continue to monitor. Problem: RISK FOR FALLS Goal: FALL PREVENTION BEHAVIOR Description: DEFINITION: Personal or family rn care manager actions to minimize risk factors that might precipitate falls in the personal environment. 1=Never demonstrated, 2=Rarely demonstrated, 3=Sometimes demonstrated, 4=Often demonstrated, 5=Consistently demonstrated. Outcome: NOC Rating 3 Flowsheets (Taken 07/24/20202208) Initial Score: 2 Target Score: 4 Plan of care reviewed with: Patient Patient specific goal for the day: Remain free of falls Patient specific goal for the stay: maintain and improve baseline mobility Achieve goal for stay: By discharge Patient Progress: Patient c/o pain RLE, Tylenol given prior to the shift, assesing pain frequently, cold & hot packs applied with some relief. Weak BLE, pt up with elder. Fall prevention measures being taken. Will continue to monitor. linical Team - Aida Mahmood RN - 07/24/2020 6:42 PM CDTShift summary [id number] Patient more alert and awake today. Delirium improving. Oriented to self, situation, and location. Calm and cooperative throughout day. Patient is vitally stable on 2 L while awake and BiPAP while sleeping. Afebrile. NIH of 4 today. Neuros q4h. Up to chair for all meals. Using elder, patient was too weak to stand with max assist of staff. Turning q2h while in bed. Sitter in room and sitting room while family at bedside. Plan for [facility] Sunday. Will need placement upon mike. Yury for strict I&o. Call light is within reach. Will continue to monitor are Planning - Aida Mahmood RN - 07/24/2020 4:39 PM CDT Problem: RISK FOR SHOCK Goal: INFECTION SEVERITY Description: DEFINITION: Severity of signs and symptoms of infection. 1 = Severe, 2 = Substantial,3 = Moderate, 4 = Mild, 5 = None. 07/24/2020 1638 by Aida Mahmood RN Outcome: NOC Rating 4 Flowsheets (Taken 07/24/2020 1638) Plan of care reviewed with: Patient Patient specific goal for the day: Stable vitals. Patient specific goal for the stay: To return to baseline Achieve goal for stay: By discharge Patient Progress: Pt's VSS on BiPap. Alternating BiPAP and 2 L NC. Afebrile. IV antibiotics as ordered. 07/24/2020 1333 by Aida Mahmood RN Outcome: NOC Rating 4 Problem: ACUTE CONFUSION Goal: COGNITIVE ORIENTATION Description: DEFINITION: Ability to identify person, place, and time accurately. 1 = Severely compromised, 2 = Substantially compromised, 3 = Moderately compromised, 4 = Mildly compromised, 5 = Not compromised. Outcome: NOC Rating 3 Flowsheets (Taken 07/24/2020 1638) Plan of care reviewed with: Patient Patient specific goal for the day: Imrove cognition. Patient specific goal for the stay: Return to cognitive baseline. Achieve goal for stay: By discharge Patient Progress: Oriented to self and location. Much more alert today. Trialing sitter outside room. Will continue to monitor. Problem: RISK FOR FALLS Goal: FALL PREVENTION BEHAVIOR Description: DEFINITION: Personal or family rn care manager actions to minimize risk factors that might precipitate falls in the personal environment. 1=Never demonstrated, 2=Rarely demonstrated, 3=Sometimes demonstrated, 4=Often demonstrated, 5=Consistently demonstrated. Outcome: NOC Rating 3 Flowsheets (Taken 07/24/2020 8366) Plan of care reviewed with: Patient Patient specific goal for the day: Remain free of fall/ Patient specific goal for the stay: maintain baseline mobility Achieve goal for stay: By discharge Patient Progress: More alert and oriented today, Continue 1:1 sitter. Fall prevention protocol in place. Up with elder. espiratory Therapy - Bita Gallagher RRT - 07/24/2020 10:18 AM CDTPatient seen on BIPAP this morning, 03/14 30%, received his Atrovent an perforomist nebs BID. BS clear and diminished. Placed mepilex on the bridge of patient's nose to prevent breakdown. Paitent is on 2lpm NC when off bipap. RT will continue to follow. linical Team - Josie Ford RN - 07/24/2020 5:58 AM CDTPatient is alert and oriented to self. VSS on BiPaP overnight. Patient denies pain. Patient sleeping most of the shift, occasionally wakes up agitated but goes back to sleep. Drowsy upon waking up, able to answer questions. Repositioning frequently. 1:[address] in place. I/Os in flowsheet. Bed alarm in place. Will continue to monitor. Delvin Kelly - Josie Ford RN - 07/24/2020 1:26 AM CDT Problem: ACUTE CONFUSION Goal: COGNITIVE ORIENTATION Description: DEFINITION: Ability to identify person, place, and time accurately. 1 = Severely compromised, 2 = Substantially compromised, 3 = Moderately compromised, 4 = Mildly compromised, 5 = Not compromised. Outcome: NOC Rating 3 Flowsheets (Taken 07/24/2020 0123) Initial Score: 3 Target Score: 5 Plan of care reviewed with: Patient Patient specific goal for the day: Imrove cognition. Patient specific goal for the stay: Return to cognitive baseline. Achieve goal for stay: By discharge Patient Progress: Patient is A&O to self. Drowsy this shift, sleeping well. Occasionally wakes up agitated but goes back to sleep. 1:1 Will continue to monitor. Problem: RISK FOR FALLS Goal: FALL PREVENTION BEHAVIOR Description: DEFINITION: Personal or family rn care manager actions to minimize risk factors that might precipitate falls in the personal environment. 1=Never demonstrated, 2=Rarely demonstrated, 3=Sometimes demonstrated, 4=Often demonstrated, 5=Consistently demonstrated. Outcome: NOC Rating 3 Flowsheets (Taken 07/24/2020 0123) Initial Score: 2 Target Score: 4 Plan of care reviewed with: Patient Patient specific goal for the day: Remain free of fall/ Patient specific goal for the stay: maintain baseline mobility Achieve goal for stay: By discharge Patient Progress: Patient oriented to self. bed alarm in place. 1:1 sitter. fall prevention protocolin place. ATCmonae Planning - Rabia Magaña RN - 07/23/2020 4:21 PM CDT Problem: RISK FOR SHOCK Goal: INFECTION SEVERITY Description: DEFINITION: Severity of signs and symptoms of infection. 1 = Severe, 2 = Substantial,3 = Moderate, 4 = Mild, 5 = None. Flowsheets (Taken 07/23/2020 2629) Initial Score: 3 Target Score: 5 Plan of care reviewed with: Patient Patient specific goal for the day: Stable vitals. Patient specific goal for the stay: To return to baseline Achieve goal for stay: By discharge Patient Progress: Pt's VSS on BiPap. IV antibiotics as ordered. Problem: RISK FOR FALLS Goal: FALL PREVENTION BEHAVIOR Description: DEFINITION: Personal or family rn care manager actions to minimize risk factors that might precipitate falls in the personal environment. 1=Never demonstrated, 2=Rarely demonstrated, 3=Sometimes demonstrated, 4=Often demonstrated, 5=Consistently demonstrated. Flowsheets (Taken 07/23/2020 1615) Initial Score: 2 Target Score: 4 Plan of care reviewed with: Patient Patient specific goal for the day: Remain free of fall/ Patient specific goal for the stay: maintain baseline mobility Achieve goal for stay: By discharge Patient Progress: Pt confused but sleeping part of day. Pt restless at times and trying to get out of bed. 1:[address] Occupational Therapy - Bita Rodriguez OTR/L - 07/23/2020 3:27 PM CDT Attempted to see pt, but pt too confused and unable to participate at this time. Will continue to follow. KIARA Patrick Pager #[phone] ase [facility] - Adrianna Espinal LSW - 07/23/2020 2:19 PM CDTCASE MANAGEMENT / SOCIAL SERVICE TRANSITION PLAN - PROGRESS NOTE PLAN: Awaiting Patient/Family Decision Regarding Plan of Care Awaiting Medical Doctor Recommendations for Transition Will Continue to Follow for Support and Progression Towards Final Transition Plan BARRIERS TO TRANSITION: Awaiting Collateral Information Diagnostic Tests Pending Discharge Needs to be Determined Medical barriers:medical stability; tele, BiPAP, RT/PT/OT, ID following, podiatry consult DOES ACCEPTING FACILITY REQUIRE COVID TESTING BEFORE DISCHARGE: N/A COMMENTS / PATIENT AND FAMILY RESPONSE TO PLAN: Chart review completed. Patient on BiPAP and using 1:1at bedside due to fall last night. PT/OT recommending low-intensity setting. Pt/family agreeable. Preference is for [facility] in [place], [place]. Update received from Anastasia hurd [facility], she states they will likely be able tooffer bed to pt, earliest would be for Sunday. Will touch base with [facility] on Sunday to [facility] plan for when patient is medically stable. Will continue to follow, await treatment team recommendations and provide discharge options as appropriate. IS PATIENT'S ADMISSION ASSOCIATED WITH TIA, ISCHEMIC, OR HEMORRHAGIC STROKE?: No PATIENT / SUBSTITUTE DECISION MAKER GOAL UPON TRANSITION: First Choice: Swing Bed ANTICIPATED NEEDS UPON TRANSITION: Swing Bed RESOURCE(S) PROVIDED: Placement ANTICIPATED MODE OF TRANSPORT UPON TRANSITION: Family Car ANTICIPATED MODE OF TRANSPORT TO AND FROM FOLLOW UP APPOINTMENTS: As arranged by accepting facility Family Car VERIFIED CORRECT PHARMACY IS ENTERED FOR DISCHARGE: Yes - Pharmacy: [facility] ([address] [phone] (Phone) TRANSITION ROUNDING COMPLETED WITH THE FOLLOWING: Patient / family Industrial Sales Manager SIGNED: DAWIT Tyler Snack Steward Case Management [facility], PRAVEEN P) [phone] hysical Therapy - Lars Alcazar PT - 07/23/2020 11:14 AM CDTAttempted to see patient but patient too drowsy to participate. Will follow up on Sunday as appropri ate. Lars Alcazar PT, DPT Board-Certified Clinical Specialist in Geriatric Physical Therapy Certified Exercise Expert for Aging Adults Pager: [phone] Respiratory Therapy - Oralia Azul RRT - 07/23/2020 10:46 AM CDTRT seen and assessed patient. Patient had audible expiratory wheeze post nebulizer treatment with increased work of breathing, tachypnea, and what looked to be some edema in the lower extremities. Messaged Ruth Etienne MD, about possible putting the patient on BiPAP to help decrease work of breathing and she agreed. Placed patient on BiPAP. Patient looked more comfortable after BiPAP was placed on. RR decreased from 32 to 24. RT will continue to follow. linical Team - Josie Ford RN - 07/23/2020 7:03 AM CDTPatient is alert and oriented to self, increased confusion and disorientation noted this shift. Patient is restless and very anxious, wants to call 911 and fire department to transfer to a hospital, occasionally yelling for help. Patient pulling out on cotton, tele and IV, difficult to calm at times. Reorienting patient frequently. One time dose of Ativan given with non-effective results. 1:1 sitterin the room. 2230: PRN Hydralazine given for SBP >160. rechecking BP as patient tolerates. 0300: Patient agitated and yelling for help. Paged test automation architect provider again, Zyprexa given per orders with satisfactory results. Wheezing noted to be getting worse, orders for PRN neb treatment from on-call provider. Per RT neb treatment not effective, will inform the provider. Will continue to monitor. Respiratory Therapy - Jennifer Bertrand RRT - 07/23/2020 3:57 AM CDTSTAT PRN Duoneb ordered by provider. On arrival patient with audible pronounced diffuse expiratory wheezing throughout. Patient very confused, 1:1 at bedside. Very busy in the bed.This isn't new. Patient has been busy for multiple parts of the shift. Was a fall at the start of the shift. Treatment given and Audible wheezing unresponsive to PRN. Patient with a great spontaneous loose productive cough. BTAS 3-4 at this time and due to patient's current ability to not appear to be able to perform the necessary skills to take the Anoro medication this morning check writer salesperson changed patient back from Anoro to nebs Q6 Atrovent and BID Performist in place of. Patient is have bouts of significant "psychotic manifestations" per LAMBERTO Arriaza, and thus being medicated. Will reassess per protocol patient's ability to transition back to DPI Anoro when appropriate. PRN Duoneb order placed per COPD protocol as well. Pt with SPO2 87-88% on RA. Placed on 2L NC no 93%. RN made aware of all of the above changes in COPDplan of care, oxygen, and no notable change with breathing treatment noted at this time. RT service to continue to follow. upplemental Progress Note - Sharee Arriaza APRN-CNP - 07/23/2020 2:47 AM CDTPer report, significant psychotic manifestations, given Haldol and Ativan earlier, reportedly, he's at it again, trying to hit staff, yelling screaming. Plan: 1. Zyprexa 5 mg IM as reportedly, became more agitated with the Ativan given earlier. are Planning - Josie Ford RN - 07/23/2020 2:17 AM CDT Problem: ACUTE CONFUSION Goal: COGNITIVE ORIENTATION Description: DEFINITION: Ability to identify person, place, and time accurately. 1 = Severely compromised, 2 = Substantially compromised, 3 = Moderately compromised, 4 = Mildly compromised, 5 = Not compromised. Outcome: NOC Rating 3 Flowsheets (Taken 07/23/2020213) Initial Score: 3 Target Score: 5 Plan of care reviewed with: Patient Patient specific goal for the day: Imrove cognition. Patient specific goal for the stay: Return to cognitive baseline. Achieve goal for stay: By discharge Patient Progress: Patient is A&O to self, impulsive and increased confusion. one time dose of Ativan given with no results. Patient pulling on lines and unable to stay calm. 1:[address] Problem: RISK FOR FALLS Goal: FALL PREVENTION BEHAVIOR Description: DEFINITION: Personal or family rn care manager actions to minimize risk factors that might precipitate falls in the personal environment. 1=Never demonstrated, 2=Rarely demonstrated, 3=Sometimes demonstrated, 4=Often demonstrated, 5=Consistently demonstrated. Outcome: NOC Rating 3 Flowsheets (Taken 07/23/2020213) Initial Score: 2 Target Score: 4 Plan of care reviewed with: Patient Patient specific goal for the day: Remain free of fall/ Patient specific goal for the stay: maintain baseline mobility Achieve goal for stay: By discharge Patient Progress: Patient continues to be restless, wanting to get out of bed with unsuccessful attempts, refusing help. On bed alarm for safety. 1:1 sitter. linical Team - Tracey Rivers RN - 07/22/2020 6:58 PM CDTPatient Fall Documentation Situation: Fall location/description: Pt room by bathroom Brief Description of Event: Pt was sitting in the chair stated he need to go to the bathroom. Pt got up out of his chair chair alarm going off and aid found patient on the floor. Pt stated he didnot hit his head does c/o right shoulder and hip pain. Assessment/Vitals: BP: 158/71 Pain/Pain location: Right hi[ Cognitive Assessment/Changes: Confused orientated to self which is not new for this admission Injuries, bruises: Awaiting XRAY of hip. No bruises noted Physician Notified: Yes (If yes, answer the following questions) Physician Name: Dr. Etienne Orders received: yes Subsequent Referral(s)/Follow-up Family Member/Lab Analyst Notified: Yes Oli (Son) Nutrition Team - Samm Drummond RD - 07/22/2020 2:42 PM CDT Nutrition Therapy Initial Assessment Hospital Day: 1 days Active Problems: Small SAH (Stable) Encephalopathy (Resolved) Troponin Elevation Presumed NSTEMI Type II likely 2/2 CHF Exacerbation Acute on Chronic CHF Exacerbation DEVANTE on CKD Stage III Mild COPD Exacerbation ?CAP, Asp PNA GPC Bacteremia Presumed UTI Hypokalemia PMH: HTN, Mild dementia, Chronic Afib, HLD, T2DM Recommendations: Family has insulin dosing questions d/t his elevated blood sugars today and would like to discusswith provider. Consider adding diabetic diet restriction if blood sugars remain elevated. Family would like to try monitoring carb amounts at meals via the Consistent Carb menu for now. NUTRITION ASSESSMENT Anthropometrics: Height: 198.1 cm (6' 6") Admission Weight: Weight: (!) 143.6 kg (316 lb 8 oz) as of 07/21/2020 per bed scale Most Recent Weight: Weight: (!) 144.8 kg (319 lb 3.2 oz) (07/22/20 0604) per bed scale Lowest Weight Since Admission: 143.6 kg Weight Change: +1.2 kg (+2.6 lb) since admission BMI: Body mass index is 36.89 kg/m. IBW: 95 kg %IBW: 151% (based on admit weight) Usual Body Weight: >300 lb Unintentional Weight Loss: No significant wt change noted Adjusted Body Weight: 107 kg Estimated Needs: 2275 kcal/day ([place] St. Jeor x 1 Using: Admission Weight) 86-107 gm protein (0.8-1 gm/kg Using:Adjusted Body Weight) Fluids per MD Intake Records: Intake Prior to Admit: Obtained diet history from pt's and son. Pt sleeping at time of visit. His makes meals. They don't follow any particular diet, but do somewhat watch carbs. Per son, hismorning blood sugars have been in the 90's recently. Current Intake: Ate 100% of breakfast this morning. His blood sugars are elevated today. Current Diet: Nutrition (From admission, onward) Start Ordered 07/22/20 1315 Diet - Heart Healthy; 2000 mls FL Restr.; Thin Liquids, No Straws Now Comments: Meds whole with thin liquid as tolerated NO straws Intermittent supervision with meals Cue for slow rate/small bites Alert (answering questions, following simple directions) prior to all PO Sit upright for all PO D/C intake with coughing, choking and contact ST Question Answer Comment Modified Diets Heart Healthy Sodium Control/Fluid Restriction 2000 mls FL Restr. Liquid Consistency Thin Liquids Liquid Consistency No Straws 07/22/20 1310 Physical Assessment: Edema: (per spud driller at 0807 today) ? Generalized Edema 1 ? Genital Edema Moderate ? LLE Edema 3 ? RLE Edema 3 GI Assessment: ? Abdominal exam: WDL, per spud driller at 0807 today. ? Stool Frequency: Pt has not had a documented BM since admission Wounds/Pressure Points: (per spud driller at 0807 today) ? WDL Functional Status: PT Following OT Following BLURB WRITER Following Nutrition Focused Physical Exam: No visible losses Nutritionally-Relevant Medications, Vitamins and Minerals: Amlodipine, Antibiotics, Lasix, Novolog, Lantus, Remeron, KCl Nutritionally-Relevant Biochemical Data: (07/22/2020) Glucose 302 H Potassium 3.3 L BUN 38 H Creatinine 1.66 H Albumin 3.0 L GFR 40 L HgbA1C 7.6 on 11/06/19 Allergies/Food Intolerance: Stephen has No Known Allergies. Culturally Shinto Needs: no INTERVENTIONS Obtained diet history from and son. Pt sleeping during visit. Offered nutrition education on heart healthy or diabetic diet - they declined at this time. Provided a consistent carbohydrate menu for family to reference carb amounts. They declined changing to a diabetic diet restriction for now. MONITORING/EVALUATION Monitor ability to consume and tolerate adequate intake to approximate estimated needs with accomodation of preferences and tolerances until intake is sustained within desirable limits Monitor I&O, weight trends, nutrition-related labs and medications, clinical status, and planof care r/t need for nutrition intervention and provide as warranted Nutrition Therapy will reassess every 1-[address], LRD [facility] Pager #[phone] espiratory Therapy - Nora Montez RRT - 07/22/2020 2:04 PM CDTRespiratory Therapy Discharge Recommendations Patient Name: Stephen Haddad : 1940 Medications: Short-acting Beta-agonists: Albuterol HFA (ProAir, Proventil, Ventolin) 2 inhalations every 4 hours as needed for shortness of breath. Use with spacer. Home Medical Equipment: Autopap: EPAP: 5-15 cm H20 DME: [employer] Testing and Consult Recommendations: Pulmonary Function Study (PFT) 4 to 8 weeks after discharge if indicated Pulmonary Medicine referral 4 to 8 weeks after discharge if indicated Here are the recommendations for respiratory medications at discharge for Stephen. Thank you for your attention to this matter. Please feel free to contact me with any questions or concerns. Nora Montez RRT, CTTS Disease Management Respiratory Care Services [facility] Respiratory Therapy - Nora Montez RRT - 07/22/2020 1:53 PM CDTCOPD Education I spent 15 minutes with patient discussing Respiratory disease management. Patient quit smoking over50 years ago and has no hx of occupational or environmental exposure that would affect his breathing. No PFT per patient report. Patient has a hx of KAREY treated with AutoPAP. Brief education completed including: Basic anatomy and physiology Home medications use and benefit-Patient does not take any respiratory medications at home. Per , he has had an inhaler in the past, but he didn't use it or find it helpful. Pulm Rehab-Addressed, not ordered Oxygen therapy-On room air. No oxygen at home. CPAP-Patient has a home AutoPAP with settings 5-15 cm H2O. He has excellent compliance. His home machine is in his room. Family had concerns that it wasn't working properly, but RT set it up last night and patient used it all night with no concerns. Fondant Puff Maker set up his machine and checked it out. It appears to be working properly. thought she had fixed the problem by changing out a rubber gasket on the water chamber. They were encouraged to call [facility] with any more questions or concerns. Infection control & vaccinations-Patient has received flu and covid vaccines this year. Pneumonia vaccine up to date. Airway clearance-Reports occasional congestion. Able to clear with cough. Follow up-Continue to follow with Sleep Medicine and PCP. Patient provided with COPD Folder and encouraged to call with any questions. Nora Montez, JAMESON, CTTS Disease Management Respiratory Care Services [facility] Occupational Therapy - Flor Luke OTR/L - 07/22/2020 1:45 PM CDT Occupational Therapy Acute Care Evaluation Impression/Recommendations Recommend low intensity upon medical stability. Family/patient in agreement as spouse is not able toassist with heavy transfer that patient is demonstrating at this time. Denied functional transfers this session. Completed grooming tasks while seated in chair, requiring setupA. Presents with deconditioning and decreased strength/endurance. OT will continue to follow per POC to maximize functional strength, activity tolerance, cognition, safety, balance, and independence with ADLs, IADLs, transfers and functional mobility needed for optimal quality of life. Admitting Diagnosis: No diagnosis found. History of Present Illness: Refer to H&P for details Past Medical History: Past Medical History: Diagnosis Date Astigmatism of both eyes Atrial fibrillation ([facility]) Cataract senile - OU Chronic renal failure, stage 3 (moderate) ([facility]) 08/17/2016 COPD (chronic obstructive pulmonary disease) ([facility]) uses inhaler COPD with asthma ([facility]) CVA (cerebral vascular accident) ([facility]) 05/09/2019 DM (diabetes mellitus) type II controlled, neurological manifestation ([facility]) Fall hurt knee wraps with gary happened in 05-28-2014 Fall at home History of radiation therapy 30 treatments cancer inside of nose Hydrocele, left Hypercholesterolemia Hyperlipidemia Hypertension history of Morbid obesity ([facility]) Neuropathy, peripheral Osteoporosis Posterior uveitis, 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 Patient lives: lives with their spouse House: house, 2 steps to enter Home Environment: Bed/Bath on main: 8 up or down (split level) Bath Setup: Walk-In Shower with curtain, built in bench Employment: not employed Prior Level of Function Independent with: dressing and bathing Assistance needed with: medication management, cooking, cleaning, laundry and driving Comments: Ambulates with FWW at baseline. Spouse assists with meds and homemaking. Adaptive Equipment Available: grab bars tub/shower, grab bars toilet, handicapped-height toilet and front-wheeled walker Present for Eval: Pt, pt's spouse, pt's son Objective Activities of Daily Living: Feeding: Not observed Grooming: While seated, patient brushed teeth with setupA and assistance to hold basin. SetupA to wash face with wash cloth. Upper Extremity Dressing: Not observed Lower Extremity Dressing: Not observed Bathing: Not observed Toileting: Not observed, cotton cath Homemaking: Not observed, spouse assists at baseline Transfers: Comments: No transfers completed. Patient seated in chair for duration and declined moving. PT reports maximal assistance. Pt educated on importance of using call light and wait for nursing assistance with OOB/chair activity, patient verbalized understanding. At end of session, pt comfortable in chair and call light, phoneand tray table within reach. Chair daisy alarm on for safety. Pain: Comment: No complaints of pain Upper Extremity Function: Range of Motion: Right:within functional limits Left: within functional limits Strength: Right: within functional limits Left: within functional limits Endurance: limited Oxygen Level: >90% Coordination: intact Sensation: intact Edema: yes Dominant Hand: right Orientation: Cognition: alert Attention: intact Following Directions: intact Safety Awareness: monitor Comments: Per chart review, mild dementia at baseline. Visual/Perception: Glasses: yes Comments: Denies acute changes Education Education/Training provided: Role of OT, plan of care, ADLs, discharge recommendations Learners: Patient and family Readiness: Acceptance Method of Training: Verbal education, demonstration Response: Verbalized/demonstrated understanding, will benefit from continued reinforcement Adaptive Equipment Recommendations Adaptive Equipment Recommended: further assess pending discharge plan Plan to obtain adaptive equipment: To further assess. Assessment/Plan Assessment: Patient demonstrates decreased physical conditioning, decreased independence with ADL/IADL tasks, decreased independence with functional mobility, decreased safety with meal prep, decreased safety judgement/insight into deficits and decreased functional cognition Patient showing a decrease in ADL/transfer performance and will benefit from continued OT. Plan: Patient to be seen 3-5 times a week to work toward above goals Treatment plan will consist of Sunday thru Sunday sessions Goals Patient/Family Stated Goal for Session: none stated Goals to be met by discharge: Patient will complete UB dressing with setup assistance Patient will complete LB dressing with minimal assistance and AE prn Patient will complete toileting task with minimal assistance including hygiene and clothing management Patient will complete functional transfers with contact guard assistance with AE PRN Patient will tolerate sitting at sink to complete grooming/hygiene for >5 minutes with AE as needed Patient will demonstrate understanding of B UE HEP in order to increase strength, coordination, and ROM to facilitate maximized independence in ADLs Patient will further participate with cognitive assessment to increase safety with functional tasks Treatment Provided See above for treatment provided Charges Treatment/Minutes: Today's Evaluation/Treatment Evaluation Self care/home management: 10 minutes Total for time-based codes: 10 minutes Total treatment time: 20 minutes Evaluation Complexity PMH/Comorbidities that affect Occupational Performance: See PMH Occupational Profile/Medical and Therapy History: LOW - Brief history relating to presenting problem Patient Assessment: LOW - 1-3 performance deficits relating to physical, cognitive, psychosocial limitations/restrictions Clinical Decision Making: LOW - Low complexity, limited amount of treatment options, no assessment modification, no comorbidities Evaluation Complexity: Low Therapist Alpha Pager Number: [phone] Speech Therapy - Allyson Lozada, BLURB WRITER - 07/22/2020 1:32 PM CDT Speech Therapy Acute Care Cognitive-LingTreatment and Discharge Assessment/ Impression Upon non-standardized cognitive-linguistic assessment and treatment, patient presents with deficits including, but not limited to the areas of comprehension, expression, attention (sustianed and higherlevel and including right visual attention), memory, problem solving and executive functions. Patient's memory deficits appear to negatively impact his comprehensive and expressive abilities. Upon patient/family interview during recent ST contacts, patient has baseline deficits following 2019 CVA according to patient and family prohibited him from completing IADLs independently (direct assistance from family/spouse and no driving). After participating in/observing cognitive ax/tx, all report current status is not deviant from his post-CVA baseline, siting physical weakness as their primary acute concern. Family plans to continue level of assistance for IADLs provided prior to acute admittance when/if cleared to return home. Patient appears tolerant of his regular/thin texture diet per EMR review of swallowing biomarkers, family/nursing report and clinical trials with ST. No further intervention warranted. Plan/Recommendations Continue regular solids with thin liquids; no restrictions on volume or method of intake; no post-acute intervention warranted. Current cognitive-linguistic status is consistent with premorbid function per self/family report andnecessitates direct ongoing assistance with IADLs as patient received prior to admittance. No post-acute ST intervention warranted, though patient/family agreed to notify PCP, seeking additional therapy if acute issues arise. Subjective Patient admitted to [facility] as direct admit from [place] [facility]. Patient admitted to [place] d/t lower extremity swelling and weakness and subsequent fall. Patient diagnosed with encephalopathy on admittance, though found to have a possible "very small subarachnoid hemorrhage" per Neurosurgery notation. PMH significant for HTN, DMII, COPD, A Fib, CKD III, and CVA (2019). Per interview, patient's family confirms cognitive dysfunction and vision changes following past CVA prompting direct assistance with all IADLs (patient no longer drives and his spouse manages all household/personal finances, schedule, medication management and cooking). Patient sitting upright in chair; his and son arrived shortly after session began. He reportedno pain. Patient pleasant and cooperative throughout. Objective Dysphagia Patient tolerating his regular/thin texture diet without issues per spouse and nursing report. No issues in nursing notation. Patient is now maintaining saturations on room air, and per EMR is afebrile and lung sounds WDL. No issues with consecutive drinking of thin by straw during the session today(nursing also admits they did not see "NO STRAW" recommendation, so had been giving patient thin fluid via this modality, reporting no overt issues). Cognition: Reviewed PLOF with patient, son and spouse as noted above; patient is dependent for all IADLs premorbidly. Family reported interactions with patient since admittance are consistent with his cognitive-linguistic baseline, though were agreeable to observe patient's participation in tx today to determine any differences. ORIENTATION Orientation (Cognistat Scale) (WFL=10-12; Mild=7-9; Moderate=5-6; Severe= 0-4) 08/18; same performance as 07/21. Patient required MOD+ cues to orient to his age and current time using contextual cues and orientation aids Problem solving/comprehension: ST posed mild-moderately complex y/n questions targeting "safety"; patient responded in a timely manor with 80% (03/23) accuracy, requiring MIN-MOD cues to reach 100%. Patient does require cuing and assistance and routine reminders everyday problems and directions per family report. Organization/sequencing: Patient was shown a 4-step sequence targeting "making a phone call". Afterreading the steps aloud, patient had difficulty identifying the task being referenced-MOD cues needed. He then was perseverative on listing the 3rd number of the sequence to begin the task, requiring MOD cues to complete the sequence in order. Occasionally word finding pauses appreciated. After thorough review of baseline PLOF and findings from activities completed this date, patient/family report current cognitive-linguistic status as consistent with patient's baseline. Education offered to how status may impact safety/success with IADL performance and family fully intends to continue premorbid level of support offered if cleared to d/c home. Goals/Education Patient/family goal: To get better Cognitive Goals All Purpose Clerk Goals: Current status consistent with premorbid function and necessitates direct ongoing assistance with IADLs as patient received prior to admittance Patient will understand auditory information across communication partners and environments. Patient will demonstrate cognitive skills consistent with level of demands to facilitate the most independent functioning within the least restrictive environment. Short Term Goals:Current status consistent with premorbid function and necessitates direct ongoing assistance with IADLs as patient received prior to admittance Patient will participate in further assessment. Patient will be independently oriented to person, place, date, and situation. Patient will complete processing tasks to increase speed of processing to a functional rate. Patient will complete simple organization and sequencing tasks with 90% accuracy independently. Patient will complete (sustained, selective, divided, alternating) attention tasks with 90% accuracyindependently. Patient will recall novel information following 1 minute delay without cues to utilize external aids. Patient will complete functional problem solving tasks with 90% accuracy independently. Patient will verbalize awareness of deficits. Dysphagia Goals Mcc Goals: Goals Met Patient will tolerate the least restrictive diet with no signs/symptoms of aspiration. Short Term Goals: Goals Met/not indicated Patient will demonstrate recall and use of compensatory swallowing strategies for safe oral intake. Patient will participate in instrumental swallow assessment (FEES exam or VFSS) if clinically indicated or as recommended by BLURB WRITER. Education Education regarding the results and recommendations of todays evaluation provided to: patient andfamily Understanding and agreement expressed by: patient and family, though patient's full understanding guarded given ongoing/chronic higher level comprehension deficits. Charges Total Time: 35 minutes Cognitive Treatment Alpha Pager [phone] [place]: [facility]: [phone] ase Mariya - Adrianna Espinal LSW - 07/22/2020 1:05 PM CDTCASE MANAGEMENT / SOCIAL SERVICE TRANSITION PLAN - INITIAL ASSESSMENT TRANSITION PLAN: Awaiting Medical Doctor Recommendations for Transition Will Continue to Follow for Support and Progression Towards Final Transition Plan BARRIERS TO TRANSITION: Awaiting Collateral Information Awaiting Therapy Recommendations Discharge Needs to be Determined Medical barriers:medical stability; neuro surgery following, PT/OT, cardiology following, tele, IV lasix COMMENTS / PATIENT AND FAMILY RESPONSE TO PLAN: Reviewed patient medical record, Met with patient, , and son at bedside this day in order to discuss discharge planning. Introduced self and case management role. Pt lives at home with in [place], [place]. Pt is independent with ADLs. assists as needed.Denies any use of services. Pt has a PCP. Pt and manage medications/finances. PT: recommending low-intensity setting. Reviewed with pt/family, agreeable to low-intensity. Preference is for [facility] swingbed in [place]. Will profile pt to swingbed via [facility]. Awaiting bed offer at this time. Will continue to follow, await treatment team recommendations and provide discharge options as appropriate. ADMISSION DX: CHF exac; elevated trop PATIENT STATUS: OP in a Bed RELEASE OF INFORMATION: Yes -- verbal for: discharge planning SOURCES OF INFORMATION (See demographics for contact information): Family: Son and Spouse Medical Record Patient CURRENT LIVING SITUATION / LEVEL OF ASSISTANCE: Lives with Independent Four Wheeled Walker COMMUNITY SERVICES: None HEALTHCARE DIRECTIVE: No POWER OF PRODUCTION ENGINEER TRACK: None FINANCIAL CONCERNS: No Concerns Medicare Part A & B/BCBS [place] PRIMARY CARE PHYSICIAN: Yes Mustapha Jones MD : Yes:VA not contacted: does not use VA services IS PATIENT'S ADMISSION ASSOCIATED WITH TIA, ISCHEMIC, OR HEMORRHAGIC STROKE?: No LANGUAGE / COMMUNICATION BARRIERS: No PATIENT / SUBSTITUTE DECISION MAKER GOAL UPON TRANSITION: First Choice: Swing Bed ANTICIPATED NEEDS, TRANSITION CHOICES OFFERED: Swing Bed Transitional Care RESOURCE(S) PROVIDED: Placement DOES PATIENT HAVE CLOTHING TO WEAR AT DISCHARGE? Yes ANTICIPATED MODE OF TRANSPORT UPON DISCHARGE: Family Car VERIFIED CORRECT PHARMACY IS ENTERED FOR DISCHARGE: No CURRENT READMISSION RISK SCORE Predictive Risk Score Risk of Unplanned Readmission: 16.9 Please refer to readmission risk assessment flowsheet for further details. SIGNED: DAWIT Tyler Snack Steward Case Management [facility] [place] P) [phone] Occupational Therapy - Ann López OTR/Farida - 07/22/2020 12:44 PM CDTOT attempted x 1 this morning. Pt busy with other discipline. OT will follow up as able/appropriate. hysical Therapy - Lars Alcazar, PT - 07/22/2020 9:12 AM CDT Physical Therapy Acute Inpatient Initial Evaluation ASSESSMENT/RECOMMENDATIONS Patient is weak and deconditioned. He will likely need continued physical therapy at a low intensity setting upon discharge. Currently requires max assist of 1-2 to stand and transfer. 6-Clicks Basic Mobility Score: 12 Activity Prescription with Nursing: Assist patient to chair 3 times per day for 30 to 60 minutes or for all meals. Use Ax2 Encourage patients to do personal cares when sitting up. Use bathroom or commode rather than bedpan. Anticipated D/C Service needs: Low intensity setting Diagnosis: No diagnosis found. Prescription: Eval and Treat Admit Date: 07/21/2020 Pertinent Medical / Surgical History: Patient has a past medical history of Astigmatism of both eyes, Atrial fibrillation ([facility]), Cataract, Chronic renal failure, stage 3 (moderate) ([facility]) (08/17/2016), COPD (chronic obstructive pulmonary disease) ([facility]), COPD with asthma ([facility]), CVA (cerebral vascular accident) ([facility]) (05/09/2019), DM (diabetes mellitus) type II controlled, neurological manifestation ([facility]), Fall, Fall at home, History of radiation therapy, Hydrocele, left, Hypercholesterolemia, Hyperlipidemia, Hypertension, Morbid obesity ([facility]), Neuropathy, peripheral, Osteoporosis, Posterior uveitis, 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 He also has no past medical history of Allergy, unspecified not elsewhere classified, Anemia, Anxiety, Blood transfusion without reported diagnosis, CHF (congestive heart failure) ([facility]), Clotting disorder ([facility]), D epression, Disorder of thyroid, Emphysema lung ([facility]), GERD (gastroesophageal reflux disease), Heart murmur, HIV infection ([facility]), Myocardial infarction ([facility]), Seizures ([facility]), Sickle cell anemia ([facility]), Substance abuse ([facility]), Thyroid disease, Tuberculosis, or Ulcer. Patient has a past surgical history that includes tonsillectomy; cholecystectomy (2000); orif (1947); arthroplasty knee condyle & plateau medial & lat compartments wwo pat (Bilateral, 2013); vasectomy; hernia repair; anes [id number] total shoulder (Right); eye surgery (Right); Joint Replacement; hydrocele spermatocele (Left, 06/25/2014); and cataract extraction. Current medical status: Per chart, patient presents due to fall out of bed. Precautions: Activity as tolerated. SUBJECTIVE Social History: Question accuracy of information due to patient's history of dementia. Patient lives: With . Home environment: House. Steps: 7 steps with railing to gain entry to bedroom. Employment: Retired. Prior Level of Function: Activities of Daily Living: Independent. Mobility: Independent ambulation with four-wheeled walker. History of falls: Yes, admitted for fall off of bed. Does not recall any other falls within the last year. Home O2: None. Adaptive equipment available: four-wheeled walker Patient Concerns: None. Patient/Family Goals: Return home. OBJECTIVE Patient seen at bedside. Patient presents with no connected lines. BP 145/74 HR: 52 BPM SpO2: 97% Cognition: Alert and oriented to person only. Pain: Bilateral knee pain. Posture: Unremarkable. Observation: Resting in bed upon PT arrival, no acute distress. Agreeable to PT. Range of Motion: Bilateral lower extremities WFL Refer to Occupational Therapy report for upper extremity range of motion. Strength: Bilateral lower extremities are generally weak. Refer to Occupational Therapy report for upper extremity strength testing. Tone: Normal. Coordination: WNL bilaterally. Bed Mobility: Supine to Sit: Min assist of one with HOB inclined Sit to Supine: Not assessed. Transfers: Sit to/from Stand: Max assist of one to stand from elevated bed and transfer to chair. Heavy max assist of one to stand from standard chair. Balance: Static Sitting Balance: Good. Dynamic Sitting Balance: Fair to poor. Gait: Unable. Stairs: Unable. Response to Activity: Vitals: HR 60 BPM, O2 sats 98%, BP 132/65 Education: Patient was educated on physical therapy role, plan of care and goals today through explanation. They accepted teaching and will need reinforcement. Interdisciplinary Communication: Spoke with interdisciplinary team members regarding patient plan ofcare. Today's Treatment Evaluation: Completed Gait trainin minutes Therapeutic exercise: 0 minutes Therapeutic activity: 9 minutes TOTAL TIME-CODED MINUTES: 9 minutes TOTAL TREATMENT TIME: 30 minutes Treatment provided: Physical therapy evaluation. Therapeutic activity consisting of: bed mobility, sitting EOB, standing and transferring. GOALS Goals to be achieved by discharge. Patient will be aware of equipment recommendations as indicated in note to allow for safe mobility. Patient will transfer sit to/from supine with no assistance. Patient will transfer from sit to/from stand with mod assistance and equipment as needed to progressto safe household mobility. Patient will be able to ambulate 25 feet using front-wheeled walker with stand- by assistance to progress to safe functional mobility in the home. Patient will demonstrate adequate awareness of fall prevention tactics to reduce risk of falling. PLAN Will continue 3 times per week. Physical Therapy Services: balance training bed mobility training education equipment gait training therapeutic activity therapeutic exercise transfer training Lars Alcazar, PT, DPT Board-Certified Clinical Specialist in Geriatric Physical Therapy Certified Exercise Expert for Aging Adults Pager: [phone] linical Team - Chen Canales RN - 07/21/2020 11:32 PM [id number] Alert, oriented to person and time VSS on RA Tele afib 60s No pain, SOB, or nausea reported NIHSS 0 Neuros unchanged Cotton in place, draining well IV lasix IV vanco Turning Q2-4 overnight, often repositions self No issues overnight are Planning - Chen Canales RN - 07/21/2020 11:32 PM CDT Problem: ACUTE CONFUSION Goal: COGNITIVE ORIENTATION Description: DEFINITION: Ability to identify person, place, and time accurately. 1 = Severely compromised, 2 = Substantially compromised, 3 = Moderately compromised, 4 = Mildly compromised, 5 = Not compromised. Outcome: NOC Rating 3 Flowsheets (Taken 07/21/2020 0015) Initial Score: 3 Target Score: 5 Plan of care reviewed with: Patient Patient specific goal for the day: To get back to my basline and figure out why I am so weak Patient specific goal for the stay: to return to baseline Achieve goal for stay: By discharge Patient Progress: A/O X 2. history of dementia. continues to be restless bed and chair alarm in place for saftey. NIHSS 0 this shift. Respiratory Therapy - Vamsi Layne RRT - 07/21/2020 9:23 PM CDTPer COPD protocol, was able to advance patient from Q4 Duonebs to q6 atrovent and BID formoterol. Patient continues on RA, 97%, BS clear with mild expiratory wheeze. Rt to follow COPD protocol. linical Team - Tracey Rivers RN - 07/21/2020 7:52 PM [id number] completed. 4 Eyes on Skin assessment completed with Bull RN. Patient's skin is WDL and has no areas of concern. Did note some scattered bruising to BUE and BLE redness. Clinical Team - Tracey Rivers RN - 07/21/2020 6:37 PM CDTI have read and validate the accuracy of the student nurse's documentation for Setphen Haddad for 07/21/2020. are Planning - Tracey Rivers RN - 07/21/2020 5:37 PM CDT Problem: RISK FOR SHOCK Goal: INFECTION SEVERITY Description: DEFINITION: Severity of signs and symptoms of infection. 1 = Severe, 2 = Substantial,3 = Moderate, 4 = Mild, 5 = None. Outcome: NOC Rating 3 Flowsheets (Taken 07/21/2020 6015) Initial Score: 3 Target Score: 5 Plan of care reviewed with: Patient Patient specific goal for the day: To figure out what is causing my weakness and increased falling and confusion Patient specific goal for the stay: To return to baseline Achieve goal for stay: By discharge Patient Progress: VSS TMAX 100.1. CT of head show small sub arachnoid bleed. Remains week sat in thechair X 1 with the elder. Waiting for labs. IV antibotics stated. Will continue to monitor. Problem: ACUTE CONFUSION Goal: COGNITIVE ORIENTATION Description: DEFINITION: Ability to identify person, place, and time accurately. 1 = Severely compromised, 2 = Substantially compromised, 3 = Moderately compromised, 4 = Mildly compromised, 5 = Not compromised. Outcome: NOC Rating 3 Flowsheets (Taken 07/21/2020 5999) Initial Score: 3 Target Score: 5 Plan of care reviewed with: Patient Patient specific goal for the day: To get back to my basline and figure out why I am so weak Patient specific goal for the stay: to return to baseline Achieve goal for stay: By discharge Patient Progress: A/O X 2. history of dementia. continues to be restless bed and chair alarm in place for saftey. Speech Therapy - Flores Becerra SLP - 07/21/2020 3:23 PM CDT Speech Therapy Acute Care Cognitive-Linguistic Evaluation Assessment/ Impression Patient presents with cognitive-linguistic deficits in the areas of comprehension, expression, attention, memory, and problem solving. Patient's memory deficits appear to negatively impact his comprehensive and expressive abilities. Patient has baseline deficits following 2020 CVA according to patient and family, mostly in the area of memory. Patient was being followed by occupational therapy during last hospital stay to work on functional cognition. At this time, patient is not appropriate to discharge back to home due to poor problem solving and insight into physical and cognitive deficits and how they may impact him. Recommend initiate ST services to further address cognition, as well as followup for diet tolerance as appropriate. Plan/Recommendations Diet textures: Regular solids and Thin Liquids Feeding: intermittent supervision and verbally cue for small bites/slow rate Positioning: sitting upright 90 degrees and up to chair for meals as able Swallow strategies: eat and drink slowly, reduce/no distractions at meals, no straws and meals only when patient most awake/alert Medications: whole with Thin Liquids Problems signs to watch for: throat clearing, coughing, choking and pneumonia Speech-Language Pathology will follow the patient 3-5 times a week for dysphagia treatment and 2-3 times a week for cognitive-linguistic treatment. Recommend high vs low intensity rehabilitation program upon d/c. Patient and family motivated to help patient recover. Barriers to return to premorbid functioning: The patient requires 24 hour supervision due to cognitive/language impairments impacting the patients safety. The patients communication/cognitive abilities are not comparable to those of others of the same chronological age and gender. The patients communication/cognitive skills negatively affect health, safety, social, emotional, educational or vocational status. Patient History Admit Date: 07/21/2020 Admitting Diagnosis: Encephalopathy Problem List: Patient Active Problem List Diagnosis Essential hypertension Obesity Controlled type 2 diabetes mellitus with diabetic polyneuropathy, with long- term current use of insulin (HCC) Peripheral autonomic neuropathy in disorders classified elsewhere(337.1) Hyperlipidemia associated with type 2 diabetes mellitus (HCC) Screening for eye condition COPD with asthma (HCC) Chronic atrial fibrillation (HCC) S/P total knee arthroplasty Edema of lower extremity Pre-ulcerative corn or callous Basal cell carcinoma of nose Hydrocele, left Scrotal hematoma assisted current use of anticoagulant therapy Acne rosacea Primary osteoarthritis of right hip Chronic renal failure, stage 3 (moderate) ([facility]) Impacted cerumen, right ear Carcinoma in situ of colon Polyp of colon, adenomatous 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 ([facility]) Posterior uveitis, bilateral 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 MOTION (background diabetic retinopathy) ([facility]) Anterior uveitis On apixaban therapy Pseudophakia - Both Raised intraocular pressure of both eyes Encephalopathy Social History: Social History Socioeconomic History Marital status: Spouse name: Not on file Number of children: 2 Years of education: 18+ Highest education level: Not on file Occupational History 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 Social Needs Financial resource strain: Not on file Food insecurity Worry: Not on file Inability: Not on file Transportation needs Medical: Not on file Non-medical: Not on file Tobacco Use Smoking status: Never Smoker Smokeless tobacco: Never Used Substance and Sexual Activity Alcohol use: Not Currently Comment: couple of times per year Drug use: No Sexual activity: Yes Partners: Female Lifestyle Physical activity Days per week: Not on file Minutes per session: Not on file Stress: Not on file Relationships Social connections Talks on phone: Not on file Gets together: Not on file Attends jewish service: Not on file Active member of club or organization: Not on file Attends meetings of clubs or organizations: Not on file Relationship status: Not on file Intimate partner violence Fear of current or ex partner: Not on file Emotionally abused: Not on file Physically abused: Not on file Forced sexual activity: Not on file Other Topics Concern Transportation No Stress in your marriage No Stress with your relationship No Stress with your family No Parenting/Being a parent No Daycare concerns No Not enough social support No Housing problems No Financial stress No Safety/danger No Work/job stress No Legal stress No Time conflicts (feeling too busy) No Academic/school stress No Language difficulties No Spiritual concerns No Insurance problems No The cost of having to take medication No The costs of buying food/groceries No Illness of family member/friend/relative No of a family member/friend/relative No Violence in your relationship No Abuse/neglect No Community stress No Cultural barriers No Ability to do self cares No Social History Narrative Not on file Patient lives: [address] [facility] [address] Previous BLURB WRITER intervention: None per EMR and patient/family report. Subjective Patient admitted to [facility] as direct admit from [place] ER. Patient admitted to [place] d/t lower extremity swelling and weakness and subsequent fall. Patient diagnosed with encephalopathy uponadmit. PMH significant for HTN, DMII, COPD, A Fib, CKD III, and CVA (2019). Questionable baseline cognitive dysfunction following past CVA appreciated. Please see EMR for more detailed PMH and information. Patient sitting upright in chair with daughter and at bedside. He reports no pain at this time,however discomfort with legs and assisted with repositioning in chair. Patient agreeable to cognitive evaluation. Objective Verbal Expression Level of impairment: Moderate. Verbal deficits exacerbated by memory deficits. moderate-severe overt word finding deficits noted in conversation Able to name 100% of objects presented when given ample processing/retrieval time Perseverations noted: Occasional Paraphasias noted: None. Turn-taking skills: appropriate Auditory Comprehension Level of impairment: mild-moderate Able to follow simple, 2-step directions Answers simple and moderate yes/no questions with 100% accuracy, complex yes/no questions with 66% accuracy Speech Intelligibility No dysathria or apraxia noted. Patient is 100% intelligible in conversation. Reading and Writing Not assessed. Cognition Patient is alert Orientated to: name, date of , residence, city, state, hospital, date, month and time Appropriate initiation noted Appropriate cessation noted mild impulsivity noted at times mild impairment in speed of processing noted Attention Level of impairment: mild Able to focus attention Distracted: internally Able to sustain attention for 15 minutes in a quiet and occasionally distracting environment Poor flexible attention appreciated Memory Level of impairment: moderate-severe Orientation: 08/18 (oriented to self, month/date, and time of day) Daily activities: 33% (3/9) with increased retrieval time needed Follows simple, 1- to 2-step auditory commands with no delay Able to recall 3 units of information immediately Unable to recall any information following 2 minute delay. Compensatory strategies: reports use External aids: reports use Patient has baseline memory deficits, family endorses this finding. Patient was followed by occupational therapy following CVA in 2019 for memory and cognitive deficits. Problem Solving/Reasoning/Organization Level of impairment: moderate Safety: 50%, difficulty in proposing alternate answers Money and time skills not assessed. Patient and family report is responsible for finances, medications, and cooking. Patient does not drive due to cognitive deficits following prior CVA. Patient's family reports baseline cognitive deficits following CVA from 2019 and feel as if his cognition is about the same. Patient endorses this finding. Goals/Education Patient/family goal: To get better Cognitive Goals Mcc Goals: Patient will understand auditory information across communication partners and environments. Patient will demonstrate cognitive skills consistent with level of demands to facilitate the most independent functioning within the least restrictive environment. Short Term Goals: Patient will participate in further assessment. Patient will be independently oriented to person, place, date, and situation. Patient will complete processing tasks to increase speed of processing to a functional rate. Patient will complete simple organization and sequencing tasks with 90% accuracy independently. Patient will complete (sustained, selective, divided, alternating) attention tasks with 90% accuracyindependently. Patient will recall novel information following 1 minute delay without cues to utilize external aids. Patient will complete functional problem solving tasks with 90% accuracy independently. Patient will verbalize awareness of deficits. Dysphagia Goals Mcc Goals: Patient will tolerate the least restrictive diet with no signs/symptoms of aspiration. Short Term Goals: Patient will demonstrate recall and use of compensatory swallowing strategies for safe oral intake. Patient will participate in instrumental swallow assessment (FEES exam or VFSS) if clinically indicated or as recommended by BLURB WRITER. Education Education regarding the results and recommendations of todays evaluation provided to: patient andfamily Understanding and agreement expressed by: family Patient was unable to express understanding secondary to impaired comprehensive/cognition Education Interventions: Results were documented in the patient care notes section of the patient's inpatient chart. Charges Total Time: 26 minutes Cognitive Evaluation Alpha Pager [phone] [place]: [facility]: [phone] Occupational Therapy - Nora Joseph OTR/Farida - 07/21/2020 2:45 PM CDTOT orders received and acknowledged. Patient here with short LOS and awaiting further work-up. Will follow up tomorrow as able/appropriate. ROSA Hawk/Farida Pager #[phone] espiratory Therapy - Violeta Leavitt RRT - 07/21/2020 1:43 PM CDT COPD Patient admitted for COPD Exacerbation SpO2: 100 % O2 Device: Room Air ( weaned from 1L with SpO2 100%) Cough/Sputum Production: None, Breath Sounds Score: diminished/End Expiratory Wheeze post neb Dyspnea (SOB) Score: None Total BTAS COPD Score: 1 Bronchodilator Therapy Assessment Score Breath Sounds 0 Normal/Clear 1 End Expiratory Wheeze 2 Pronounced Expiratory Wheeze 3 Inspiratory & Expiratory Wheeze 4 Absent or Near Absent Dyspnea 0 None 1 Slight 2 Mild 3 Moderate 4 Severe Total Score 0 1-2 3-4 5-6 7-8 Frequency CHARLES Q4H PRN for increased shortness of breath; continue long-acting bronchodilators CHARLES Q4H PRN for increased shortness of breath; start long - acting bronchodilators CHARLES and Anticholinergic every 4 hours and CHARLES Q2 prn; consider starting long - acting bronchodilators Every 2 hours; if on continuous, then wean CHARLES by 5 mg/hr as tolerated down to 5 mg/hr Every 1 hour up to three treatments then start continuous CHARLES and Anticholinergic Use CHARLES Albuterol 2.5mg and Anticholinergic ipratropium 0.5mg unless continuous therapy is indicated, then use: CHARLES Albuterol 15mg/hr and Anticholinergic ipratropium 0.5mg/hr, wean dose as indicated above. Plan to continue Q4 Duoneb and will continue to assess patient every 4 hours per COPD protocol. Per patient's chart, he has never smoked and does not have a respiratory medication home routine. RT to follow Speech Therapy - Flores Becerra BLURB WRITER - 07/21/2020 9:48 AM CDT Speech Therapy Acute Care Clinical Dysphagia/ Swallow Evaluation Assessment/ Impression Oral phase of swallow: Within normal limits characterized by no anterior loss of bolus, timely AP propulsion suspected, and complete oral clearance of all textures. No oral weakness appreciated upon examination. Pharyngeal phase of swallow: Mild impairment characterized by reflexive coughing appreciated following thin liquids by straw with sequential swallows. Patient intermittently impulsive with bolus sizesand rate throughout evaluation. Patient swallowed 16+oz of thin liquid with no s/s of aspiration by cup. Vocal quality clear following all trials. Plan/ Recommendations Diet textures: Regular solids and Thin Liquids Feeding: intermittent supervision and verbally cue for small bites/slow rate Positioning: sitting upright 90 degrees and up to chair for meals as able Swallow strategies: eat and drink slowly, reduce/no distractions at meals, no straws and meals only when patient most awake/alert Medications: whole with Thin Liquids Problems signs to watch for: throat clearing, coughing, choking and pneumonia Speech-Language Pathology will follow the patient 3-5 times a week for dysphagia treatment and cognitive evaluation. Speech-Language Pathology will follow up for: diet tolerance These recommendations are based upon todays assessment and may reduce, but cannot entirely eliminate this patients risk of aspiration. Patient History Admit Date: 07/21/2020 Admitting Diagnosis: Encephalopathy Problem List: Patient Active Problem List Diagnosis Essential hypertension Obesity Controlled type 2 diabetes mellitus with diabetic polyneuropathy, with long- term current use of insulin (HCC) Peripheral autonomic neuropathy in disorders classified elsewhere(337.1) Hyperlipidemia associated with type 2 diabetes mellitus (HCC) Screening for eye condition COPD with asthma (HCC) Chronic atrial fibrillation (HCC) S/P total knee arthroplasty Edema of lower extremity Pre-ulcerative corn or callous Basal cell carcinoma of nose Hydrocele, left Scrotal hematoma assisted current use of anticoagulant therapy Acne rosacea Primary osteoarthritis of right hip Chronic renal failure, stage 3 (moderate) (HCC) Impacted cerumen, right ear Carcinoma in situ of colon Polyp of colon, adenomatous 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, bilateral 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 MOTION (background diabetic retinopathy) (HCC) Anterior uveitis On apixaban therapy Pseudophakia - Both Raised intraocular pressure of both eyes Encephalopathy Social History: Social History Socioeconomic History Marital status: Spouse name: Not on file Number of children: 2 Years of education: 18+ Highest education level: Not on file Occupational History 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 Social Needs Financial resource strain: Not on file Food insecurity Worry: Not on file Inability: Not on file Transportation needs Medical: Not on file Non-medical: Not on file Tobacco Use Smoking status: Never Smoker Smokeless tobacco: Never Used Substance and Sexual Activity Alcohol use: Not Currently Comment: couple of times per year Drug use: No Sexual activity: Yes Partners: Female Lifestyle Physical activity Days per week: Not on file Minutes per session: Not on file Stress: Not on file Relationships Social connections Talks on phone: Not on file Gets together: Not on file Attends jewish service: Not on file Active member of club or organization: Not on file Attends meetings of clubs or organizations: Not on file Relationship status: Not on file Intimate partner violence Fear of current or ex partner: Not on file Emotionally abused: Not on file Physically abused: Not on file Forced sexual activity: Not on file Other Topics Concern Transportation No Stress in your marriage No Stress with your relationship No Stress with your family No Parenting/Being a parent No Daycare concerns No Not enough social support No Housing problems No Financial stress No Safety/danger No Work/job stress No Legal stress No Time conflicts (feeling too busy) No Academic/school stress No Language difficulties No Spiritual concerns No Insurance problems No The cost of having to take medication No The costs of buying food/groceries No Illness of family member/friend/relative No of a family member/friend/relative No Violence in your relationship No Abuse/neglect No Community stress No Cultural barriers No Ability to do self cares No Social History Narrative Not on file Patient lives: [address] [facility] [address] BLURB WRITER Diagnosis: pharyngeal dysphagia Indication/reason for referral: cognitive-linguistic disturbance after neurological changes and airway protection Dysphagia history: None per EMR and patient report. Subjective Patient admitted to [facility] as direct admit from [place] ER. Patient admitted to [place] d/t lower extremity swelling and weakness and subsequent fall. Patient diagnosed with encephalopathy uponadmit. PMH significant for HTN, DMII, COPD, A Fib, CKD III, and CVA (2020). Questionable baseline cognitive dysfunction following past CVA appreciated. Please see EMR for more detailed PMH and information. Patient laying in bed watching TV upon ST arrival. Patient agreeable to PO trials and sat upright inbed. Patient reports no pain at this time, however had intermittent difficulty comprehending questions and commands throughout session. Objective Swallowing: CURRENT NUTRITION: Paul augustine MD approved assessing beyond diet prior to evaluation. RESPIRATORY: RA, expiratory wheezing appreciated prior to and throughout evaluation. CONTEXTUAL FACTORS (POSITIONING, ENVIRONMENT, ETC): Patient sitting upright in bed. TV turned off prior to PO trials. ORAL MOTOR EXAMINATION: Dentition: natural, poor, missing several molars Lips: WNL Tongue: WNL Facies: Symmetrical at rest Patient unable to follow several directions for oral motor peripheral examination, even with MAX assist. Above findings are reflective of abilities with limited tasks completed and PO trials. TEXTURES TRIALED: Thin (by spoon, cup, straw), puree, mixed/soft, solid/crisp. ORAL PHASE: Lip seal: within normal limits Mastication: within normal limits Bolus formation: within normal limits Bolus transit: within normal limits Oral clearance: within normal lmits PHARYNGEAL PHASE: Pharyngeal swallow: timely Laryngeal elevation/excursion: within normal limits Pharyngeal clearance: single swallow Vocal quality: clear Aspiration: demonstrated positive signs/symptoms Laryngeal sensation: cough reflexive with sequential swallows of thin liquid by straw Patient consumed 18 ounces of thin liquid with reflexive coughing appreciated only after thin liquids by straws. Patient reports not using straws at home. Patient impulsive with bolus sizes at times throughout evaluation, so recommend intermittent supervision with meals with cues to slow down as needed. Cognitive-Linguistic: Comprehension: - Patient unable to follow some directions for the oral motor peripheral examination (e.g., "Puff upyour cheeks/put air in your cheeks", "put your tongue in your cheek", "lick your chin"), however wasable to follow more basic commands (e.g., "open your mouth," "smile", "lick your nose"). 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 Memory: - Following education, patient asked to repeat recommendations and was unable to recall. Simplified education presented (no straws, slow down) and patient was able to recall 2/2 directions immediately and after ~2 minute delay. - Patient oriented to city/state and place (however reports hospital [facility]). Unable to state situation/reason for admission. He reports the date is "April 1999, I don't really know". Fully oriented to self only (Ox1). Cognitive evaluation to follow. Goals/Education Patient/family goal: not stated Goals: Mcc Goals: Patient will tolerate the least restrictive diet with no signs/symptoms of aspiration. Short Term Goals: Patient will demonstrate recall and use of compensatory swallowing strategies for safe oral intake. Patient will participate in instrumental swallow assessment (FEES exam or VFSS) if clinically indicated or as recommended by BLURB WRITER. Education: Education regarding the results and recommendations of todays evaluation provided to: patient, nurse and MD Understanding and agreement expressed by: patient, nurse and MD Education Interventions: Results were documented in the patient care notes section of the patient's inpatient chart. Sign reflecting diet and swallow recommendations were posted in the patient's room. Nurse was updated regarding the results and recommendations of today's evaluation. MD team notified of results and recommendations. MD approval prior to diet advancement.. Charges Total Time: 22 minutes Dysphagia Evaluation Alpha Pager [phone] [place]: [facility]: [phone] signed by Flores Becerra SLP at 07/21/2020 10:16 AM CDTClinical Team - Tracey Rivers RN - 07/21/2020 7:34 AM CDTArrived at 0734 accompanied by [facility] staff. Admitted for Weakness Falls Fever. Currentlydenies complaints of Chest pain or SOB. IV saline locked. Settled in room 644 and oriented to calllight, bed/tv control. Refer to Patient Admission Education. Provider notified of patients arrival. BG on admission was 62 Dr. Kumar paged orders to give D50. Rechecked blood sugar 152. NIHSS done by charge nurse see Flow sheets for details. Pt remains drowsy and confused. documented in this encounter Plan of Treatment Date Type Specialty Care Team Description 01/03/2021 Office Visit Neurology Kermit Rider, [employer] [address] [facility] [place] [address] [phone] 05/02/2021 Office Visit SLEEP MEDICINE 07/05/2021 Office Visit Neurology Maryann Fuentes M D [address] [facility] [place] [address] [phone] Name Type Priority Associated Diagnoses Order S chedule COMPLETE BLOOD COUNT WITH Lab Routine Ea rly AM draw for labs DIFFERENTIAL until discontin ued starting 2020, 9 completed BASIC METABOLIC PANEL Lab Routine Early AM draw for labs until discontin ued starting 2020, 9 completed MAGNESIUM Lab Routine Early AM draw f or labs until discontin ued starting 2020, 9 completed documented as of this encounter Procedures Procedure Name Priority Date/Time Associated Comments Diagnosis GLUCOSE BY METER, POCT Routine 08/03/2020 11:22 R esults for this AM CDT procedure are i n the results section. LAB ONLY-COMPLETE Routine 08/03/2020 8:34 Result s for this BLOOD COUNT WITH AM CDT procedure a re in DIFFERENTIAL the results section. MAGNESIUM Routine 08/03/2020 8:34 Results for this AM CDT procedure are i n the results section. BASIC METABOLIC PANEL Routine 08/03/2020 8:34 Re sults for this AM CDT procedure are i n the results section. LAB ONLY-COMPLETE Routine 08/03/2020 8:34 Result s for this BLOOD COUNT WITH AM CDT procedure a re in DIFFERENTIAL the results section. GLUCOSE BY METER, POCT Routine 08/03/2020 6:16 R esults for this AM CDT procedure are i n the results section. GLUCOSE BY METER, POCT Routine 08/03/2020 5:41 R esults for this AM CDT procedure are i n the results section. GLUCOSE BY METER, POCT Routine 08/02/2020 9:28 R esults for this PM CDT procedure are i n the results section. COVID-19 SCREEN TO STAT 08/02/2020 6:22 Resul ts for this RULE OUT INFECTIVE PM CDT procedure are in STATUS the results section. GLUCOSE BY METER, POCT Routine 08/02/2020 5:07 R esults for this PM CDT procedure are i n the results section. GLUCOSE BY METER, POCT Routine 08/02/2020 12:11 R esults for this PM CDT procedure are i n the results section. GLUCOSE BY METER, POCT Routine 08/02/2020 8:11 R esults for this AM CDT procedure are i n the results section. LAB ONLY-COMPLETE Routine 08/02/2020 5:21 Result s for this BLOOD COUNT WITH AM CDT procedure a re in DIFFERENTIAL the results section. MAGNESIUM Routine 08/02/2020 5:21 Results for this AM CDT procedure are i n the results section. BASIC METABOLIC PANEL Routine 08/02/2020 5:21 Re sults for this AM CDT procedure are i n the results section. LAB ONLY-COMPLETE Routine 08/02/2020 5:21 Result s for this BLOOD COUNT WITH AM CDT procedure a re in DIFFERENTIAL the results section. GLUCOSE BY METER, POCT Routine 08/02/2020 5:15 R esults for this AM CDT procedure are i n the results section. GLUCOSE BY METER, POCT Routine 08/01/2020 8:38 R esults for this PM CDT procedure are i n the results section. GLUCOSE BY METER, POCT Routine 08/01/2020 5:08 R esults for this PM CDT procedure are i n the results section. GLUCOSE BY METER, POCT Routine 08/01/2020 11:37 R esults for this AM CDT procedure are i n the results section. LAB ONLY-COMPLETE Routine 08/01/2020 9:32 Result s for this BLOOD COUNT WITH AM CDT procedure a re in DIFFERENTIAL the results section. MAGNESIUM Routine 08/01/2020 9:32 Results for this AM CDT procedure are i n the results section. BASIC METABOLIC PANEL Routine 08/01/2020 9:32 Re sults for this AM CDT procedure are i n the results section. LAB ONLY-COMPLETE Routine 08/01/2020 9:32 Result s for this BLOOD COUNT WITH AM CDT procedure a re in DIFFERENTIAL the results section. GLUCOSE BY METER, POCT Routine 08/01/2020 6:51 R esults for this AM CDT procedure are i n the results section. GLUCOSE BY METER, POCT Routine 07/31/2020 8:58 R esults for this PM CDT procedure are i n the results section. GLUCOSE BY METER, POCT Routine 07/31/2020 8:39 R esults for this PM CDT procedure are i n the results section. GLUCOSE BY METER, POCT Routine 07/31/2020 5:06 R esults for this PM CDT procedure are i n the results section. GLUCOSE BY METER, POCT Routine 07/31/2020 11:53 R esults for this AM CDT procedure are i n the results section. GLUCOSE BY METER, POCT Routine 07/31/2020 9:31 R esults for this AM CDT procedure are i n the results section. GLUCOSE BY METER, POCT Routine 07/31/2020 6:17 R esults for this AM CDT procedure are i n the results section. GLUCOSE BY METER, POCT Routine 07/31/2020 5:53 R esults for this AM CDT procedure are i n the results section. LAB ONLY-COMPLETE Routine 07/31/2020 5:51 Result s for this BLOOD COUNT WITH AM CDT procedure a re in DIFFERENTIAL the results section. GLUCOSE BY METER, POCT Routine 07/31/2020 5:51 R esults for this AM CDT procedure are i n the results section. MAGNESIUM Routine 07/31/2020 5:51 Results for this AM CDT procedure are i n the results section. BASIC METABOLIC PANEL Routine 07/31/2020 5:51 Re sults for this AM CDT procedure are i n the results section. LAB ONLY-COMPLETE Routine 07/31/2020 5:51 Result s for this BLOOD COUNT WITH AM CDT procedure a re in DIFFERENTIAL the results section. GLUCOSE BY METER, POCT Routine 07/30/2020 8:22 R esults for this PM CDT procedure are i n the results section. GLUCOSE BY METER, POCT Routine 07/30/2020 4:59 R esults for this PM CDT procedure are i n the results section. GLUCOSE BY METER, POCT Routine 07/30/2020 11:18 R esults for this AM CDT procedure are i n the results section. GLUCOSE BY METER, POCT Routine 07/30/2020 10:54 R esults for this AM CDT procedure are i n the results section. LAB ONLY-COMPLETE Routine 07/30/2020 8:15 Result s for this BLOOD COUNT WITH AM CDT procedure a re in DIFFERENTIAL the results section. MAGNESIUM Routine 07/30/2020 8:15 Results for this AM CDT procedure are i n the results section. BASIC METABOLIC PANEL Routine 07/30/2020 8:15 Re sults for this AM CDT procedure are i n the results section. LAB ONLY-COMPLETE Routine 07/30/2020 8:15 Result s for this BLOOD COUNT WITH AM CDT procedure a re in DIFFERENTIAL the results section. GLUCOSE BY METER, POCT Routine 07/30/2020 5:29 R esults for this AM CDT procedure are i n the results section. GLUCOSE BY METER, POCT Routine 07/29/2020 9:21 R esults for this PM CDT procedure are i n the results section. GLUCOSE BY METER, POCT Routine 07/29/2020 5:22 R esults for this PM CDT procedure are i n the results section. GLUCOSE BY METER, POCT Routine 07/29/2020 11:11 R esults for this AM CDT procedure are i n the results section. LAB ONLY-COMPLETE Routine 07/29/2020 10:38 Result s for this BLOOD COUNT WITH AM CDT procedure a re in DIFFERENTIAL the results section. PROCALCITONIN Routine 07/29/2020 10:38 Results fo r this AM CDT procedure are i n the results section. C-REACTIVE PROTEIN Routine 07/29/2020 10:38 Resul ts for this (INFLAMMATION) AM CDT procedure are in the results section. MAGNESIUM Routine 07/29/2020 10:38 Results for this AM CDT procedure are i n the results section. BASIC METABOLIC PANEL Routine 07/29/2020 10:38 Re sults for this AM CDT procedure are i n the results section. LAB ONLY-COMPLETE Routine 07/29/2020 10:38 Result s for this BLOOD COUNT WITH AM CDT procedure a re in DIFFERENTIAL the results section. XRAY CHEST PORTABLE STAT 07/29/2020 9:44 Resu lts for this AM CDT procedure are i n the results section. GLUCOSE BY METER, POCT Routine 07/29/2020 6:10 R esults for this AM CDT procedure are i n the results section. GLUCOSE BY METER, POCT Routine 07/28/2020 7:47 R esults for this PM CDT procedure are i n the results section. GLUCOSE BY METER, POCT Routine 07/28/2020 4:39 R esults for this PM CDT procedure are i n the results section. GLUCOSE BY METER, POCT Routine 07/28/2020 11:34 R esults for this AM CDT procedure are i n the results section. LAB ONLY-COMPLETE Routine 07/28/2020 7:51 Result s for this BLOOD COUNT WITH AM CDT procedure a re in DIFFERENTIAL the results section. MAGNESIUM Routine 07/28/2020 7:51 Results for this AM CDT procedure are i n the results section. BASIC METABOLIC PANEL Routine 07/28/2020 7:51 Re sults for this AM CDT procedure are i n the results section. LAB ONLY-COMPLETE Routine 07/28/2020 7:51 Result s for this BLOOD COUNT WITH AM CDT procedure a re in DIFFERENTIAL the results section. GLUCOSE BY METER, POCT Routine 07/28/2020 5:26 R esults for this AM CDT procedure are i n the results section. GLUCOSE BY METER, POCT Routine 07/27/2020 9:20 R esults for this PM CDT procedure are i n the results section. GLUCOSE BY METER, POCT Routine 07/27/2020 4:59 R esults for this PM CDT procedure are i n the results section. EKG Routine 07/27/2020 4:44 Results for this PM CDT procedure are i n the results section. TROPONIN I Routine 07/27/2020 3:17 Results for this PM CDT procedure are i n the results section. EKG STAT 07/27/2020 2:25 Results for this PM CDT procedure are i n the results section. CARDIAC CATH POSSIBLE Routine 07/27/2020 1:17 Re sults for this ANGIOPLASTY STENT CATH PM CDT proce dure are in LAB the results section. GLUCOSE BY METER, POCT Routine 07/27/2020 10:51 R esults for this AM CDT procedure are i n the results section. PETCT NUCLEAR STRESS Routine 07/27/2020 10:36 Res ults for this TEST RB-82 SINGLE AM CDT procedure are in the results section. EKG STAT 07/27/2020 10:21 Results for this AM CDT procedure are i n the results section. LAB ONLY-COMPLETE Routine 07/27/2020 7:13 Result s for this BLOOD COUNT WITH AM CDT procedure a re in DIFFERENTIAL the results section. TROPONIN I STAT 07/27/2020 7:13 Results for this AM CDT procedure are i n the results section. MAGNESIUM Routine 07/27/2020 7:13 Results for this AM CDT procedure are i n the results section. BASIC METABOLIC PANEL Routine 07/27/2020 7:13 Re sults for this AM CDT procedure are i n the results section. LAB ONLY-COMPLETE Routine 07/27/2020 7:13 Result s for this BLOOD COUNT WITH AM CDT procedure a re in DIFFERENTIAL the results section. GLUCOSE BY METER, POCT Routine 07/27/2020 5:25 R esults for this AM CDT procedure are i n the results section. GLUCOSE BY METER, POCT Routine 07/26/2020 8:27 R esults for this PM CDT procedure are i n the results section. GLUCOSE BY METER, POCT Routine 07/26/2020 5:00 R esults for this PM CDT procedure are i n the results section. EKG STAT 07/26/2020 1:27 Results for this PM CDT procedure are i n the results section. GLUCOSE BY METER, POCT Routine 07/26/2020 12:29 R esults for this PM CDT procedure are i n the results section. ECHO TRANSESOPHAGEAL Routine 07/26/2020 11:26 Res ults for this AM CDT procedure are i n the results section. GLUCOSE BY METER, POCT Routine 07/26/2020 10:44 R esults for this AM CDT procedure are i n the results section. GLUCOSE BY METER, POCT Routine 07/26/2020 9:29 R esults for this AM CDT procedure are i n the results section. LAB ONLY-COMPLETE Routine 07/26/2020 6:28 Result s for this BLOOD COUNT WITH AM CDT procedure a re in DIFFERENTIAL the results section. MAGNESIUM Routine 07/26/2020 6:28 Results for this AM CDT procedure are i n the results section. BASIC METABOLIC PANEL Routine 07/26/2020 6:28 Re sults for this AM CDT procedure are i n the results section. LAB ONLY-COMPLETE Routine 07/26/2020 6:28 Result s for this BLOOD COUNT WITH AM CDT procedure a re in DIFFERENTIAL the results section. GLUCOSE BY METER, POCT Routine 07/26/2020 5:40 R esults for this AM CDT procedure are i n the results section. GLUCOSE BY METER, POCT Routine 07/25/2020 8:46 R esults for this PM CDT procedure are i n the results section. GLUCOSE BY METER, POCT Routine 07/25/2020 4:54 R esults for this PM CDT procedure are i n the results section. GLUCOSE BY METER, POCT Routine 07/25/2020 2:26 R esults for this PM CDT procedure are i n the results section. GLUCOSE BY METER, POCT Routine 07/25/2020 11:00 R esults for this AM CDT procedure are i n the results section. COMPLETE BLOOD COUNT Routine 07/25/2020 10:27 Res ults for this WITHOUT DIFFERENTIAL AM CDT procedu re are in the results section. PHOSPHORUS Routine 07/25/2020 10:27 Results for this AM CDT procedure are i n the results section. MAGNESIUM Routine 07/25/2020 10:27 Results for this AM CDT procedure are i n the results section. BASIC METABOLIC PANEL Routine 07/25/2020 10:27 Re sults for this AM CDT procedure are i n the results section. GLUCOSE BY METER, POCT Routine 07/25/2020 6:01 R esults for this AM CDT procedure are i n the results section. XRAY CHEST PORTABLE AYAKA 07/25/2020 3:04 Resu lts for this AM CDT procedure are i n the results section. GLUCOSE BY METER, POCT Routine 07/24/2020 8:47 R esults for this PM CDT procedure are i n the results section. GLUCOSE BY METER, POCT Routine 07/24/2020 4:58 R esults for this PM CDT procedure are i n the results section. GLUCOSE BY METER, POCT Routine 07/24/2020 11:51 R esults for this AM CDT procedure are i n the results section. COMPLETE BLOOD COUNT Routine 07/24/2020 9:26 Res ults for this WITHOUT DIFFERENTIAL AM CDT procedu re are in the results section. PHOSPHORUS Routine 07/24/2020 9:26 Results for this AM CDT procedure are i n the results section. MAGNESIUM Routine 07/24/2020 9:26 Results for this AM CDT procedure are i n the results section. BASIC METABOLIC PANEL Routine 07/24/2020 9:26 Re sults for this AM CDT procedure are i n the results section. GLUCOSE BY METER, POCT Routine 07/24/2020 5:40 R esults for this AM CDT procedure are i n the results section. GLUCOSE BY METER, POCT Routine 07/23/2020 9:07 R esults for this PM CDT procedure are i n the results section. GLUCOSE BY METER, POCT Routine 07/23/2020 5:27 R esults for this PM CDT procedure are i n the results section. ANKLE BRACHIAL INDEX Routine 07/23/2020 3:32 Res ults for this YORDY PM CDT procedure are i n the results section. XRAY FOOT MIN 3 VIEWS Routine 07/23/2020 2:27 Re sults for this RT PM CDT procedure are i n the results section. GLUCOSE BY METER, POCT Routine 07/23/2020 12:03 R esults for this PM CDT procedure are i n the results section. XRAY CHEST PORTABLE AYAKA 07/23/2020 7:52 Resu lts for this AM CDT procedure are i n the results section. COMPLETE BLOOD COUNT Routine 07/23/2020 6:48 Res ults for this WITHOUT DIFFERENTIAL AM CDT procedu re are in the results section. PHOSPHORUS Routine 07/23/2020 6:48 Results for this AM CDT procedure are i n the results section. MAGNESIUM Routine 07/23/2020 6:48 Results for this AM CDT procedure are i n the results section. BASIC METABOLIC PANEL Routine 07/23/2020 6:48 Re sults for this AM CDT procedure are i n the results section. GLUCOSE BY METER, POCT Routine 07/23/2020 5:45 R esults for this AM CDT procedure are i n the results section. GLUCOSE BY METER, POCT Routine 07/22/2020 9:49 R esults for this PM CDT procedure are i n the results section. VANCOMYCIN RANDOM Timed Routine 07/22/2020 8:48 Resul ts for this PM CDT procedure are i n the results section. XRAY HIP MIN 2 VIEWS Routine 07/22/2020 8:15 Res ults for this RT PM CDT procedure are i n the results section. GLUCOSE BY METER, POCT Routine 07/22/2020 5:15 R esults for this PM CDT procedure are i n the results section. LAB ONLY-COMPLETE Routine 07/22/2020 11:21 Result s for this BLOOD COUNT WITH AM CDT procedure a re in DIFFERENTIAL the results section. TROPONIN I Routine 07/22/2020 11:21 Results for this AM CDT procedure are i n the results section. HEPATIC FUNCTION PANEL Routine 07/22/2020 11:21 R esults for this AM CDT procedure are i n the results section. BASIC METABOLIC PANEL Routine 07/22/2020 11:21 Re sults for this AM CDT procedure are i n the results section. LAB ONLY-COMPLETE Routine 07/22/2020 11:21 Result s for this BLOOD COUNT WITH AM CDT procedure a re in DIFFERENTIAL the results section. GLUCOSE BY METER, POCT Routine 07/22/2020 11:18 R esults for this AM CDT procedure are i n the results section. GLUCOSE BY METER, POCT Routine 07/22/2020 7:02 R esults for this AM CDT procedure are i n the results section. CT HEAD WITHOUT Routine 07/22/2020 6:30 Results for this CONTRAST AM CDT procedure are i n the results section. LAB ONLY-URINE Routine 07/22/2020 3:08 Results f or this MICROSCOPIC REFLEX AM CDT procedure are in the results section. URINE DIP, REFLEX TO Routine 07/22/2020 3:08 Res ults for this MICROSCOPIC, REFLEX TO AM CDT proce dure are in CULTURE the results section. CULTURE BACTERIAL, Routine 07/22/2020 3:08 Resul ts for this URINE AM CDT procedure are i n the results section. GLUCOSE BY METER, POCT Routine 07/21/2020 9:02 R esults for this PM CDT procedure are i n the results section. CULTURE, BLOOD AYAKA 07/21/2020 5:39 Results f or this PM CDT procedure are i n the results section. CULTURE, BLOOD AYAKA 07/21/2020 5:39 Results f or this PM CDT procedure are i n the results section. GLUCOSE BY METER, POCT Routine 07/21/2020 5:21 R esults for this PM CDT procedure are i n the results section. MRSA NASAL SCREEN, BARB Routine 07/21/2020 4:11 R esults for this PM CDT procedure are i n the results section. STREP PNEUMONIAE Routine 07/21/2020 4:11 Results for this DIRECT ANTIGEN, URINE PM CDT proced ure are in the results section. LEGIONELLA ANTIGEN, Routine 07/21/2020 4:11 Resu lts for this URINE PM CDT procedure are i n the results section. TROPONIN I Timed Routine 07/21/2020 3:24 Results fo r this PM CDT procedure are i n the results section. TROPONIN I Timed Routine 07/21/2020 12:40 Results fo r this PM CDT procedure are i n the results section. GLUCOSE BY METER, POCT Routine 07/21/2020 11:10 R esults for this AM CDT procedure are i n the results section. ECHO ADULT COMPLETE Routine 07/21/2020 10:17 Resu lts for this AM CDT procedure are i n the results section. CT HEAD WITHOUT STAT 07/21/2020 10:07 Results for this CONTRAST AM CDT procedure are i n the results section. GLUCOSE BY METER, POCT Routine 07/21/2020 9:12 R esults for this AM CDT procedure are i n the results section. EKG AYAKA 07/21/2020 8:39 Results for this AM CDT procedure are i n the results section. XRAY CHEST PORTABLE AYAKA 07/21/2020 8:38 Resu lts for this AM CDT procedure are i n the results section. BLOOD GASES VENOUS Routine 07/21/2020 8:30 Resul ts for this WITH LACTIC ACID AM CDT procedure a re in the results section. LAB ONLY-COMPLETE Routine 07/21/2020 8:30 Result s for this BLOOD COUNT WITH AM CDT procedure a re in DIFFERENTIAL the results section. PROCALCITONIN Routine 07/21/2020 8:30 Results fo r this AM CDT procedure are i n the results section. PTT Routine 07/21/2020 8:30 Results for this AM CDT procedure are i n the results section. PROTIME/INR Routine 07/21/2020 8:30 Results for this AM CDT procedure are i n the results section. D-DIMER QUANTITATIVE Routine 07/21/2020 8:30 Res ults for this AM CDT procedure are i n the results section. C-REACTIVE PROTEIN Routine 07/21/2020 8:30 Resul ts for this (INFLAMMATION) AM CDT procedure are in the results section. TROPONIN I Routine 07/21/2020 8:30 Results for this AM CDT procedure are i n the results section. MAGNESIUM Routine 07/21/2020 8:30 Results for this AM CDT procedure are i n the results section. COMPREHENSIVE Routine 07/21/2020 8:30 Results fo r this METABOLIC PANEL AM CDT procedure ar e in the results section. LAB ONLY-COMPLETE Routine 07/21/2020 8:30 Result s for this BLOOD COUNT WITH AM CDT procedure a re in DIFFERENTIAL the results section. BRAIN NATRIURETIC Routine 07/21/2020 8:30 Result s for this PEPTIDE AM CDT procedure are i n the results section. GLUCOSE BY METER, POCT Routine 07/21/2020 8:05 R esults for this AM CDT procedure are i n the results section. documented in this encounter Results GLUCOSE BY METER, POCT (08/03/2020 11:22 AM CDT) Pathologist Sig [facility] Glucose POC 140 (H) 70 - 99 mg/dL [facility] O POINT OF CARE TESTING Specimen Blood - Blood specimen (specimen) Performing Organization Address City/State/Zipcode Phone Number [facility] POINT OF [address] [place] [address] CARE TESTING LAB ONLY-COMPLETE BLOOD COUNT WITH DIFFERENTIAL (08/03/2020 8:34 AM CDT) Pathologist Sig [facility] WBC 13.0 (H) 4.0 - 11.0 K/uL [address] RBC 3.58 (L) 4.40 - 5.80 [place] [id number] [facility] M/uL Hemoglobin 11.0 (L) 13.5 - 17.[address] g/dL Hematocrit 33.9 (L) 40.0 - 50.0 % [address] MCV 94.7 80.0 - 98.[address] MCH 30.7 25.5 - 34.[address] MCHC 32.4 31.5 - 36.[address] g/dL RDW-CV 13.2 11.5 - 15.5 % [address] RDW-SD 46.2 35.5 - 50.[address] Platelet Count 288 140 - 400 K/uL [address] MPV 10.5 8.5 - 12.[address] Seg Neut Absolute 10.4 (H) 1.8 - 8.0 K/uL [address] Lymphocytes Absolute 1.0 0.8 - 4.1 K/uL [place] [address] [facility] C Monocytes Absolute 1.1 (H) 0.0 - 1.0 K/uL [address] Eosinophils Absolute 0.4 0.0 - 0.7 K/uL [place] [address] [facility] Basophil Absolute 0.1 0.0 - 0.2 K/uL [address] Immature Granulocyte 0.09 (H) 0.00 - 0.[address] Absolute K/uL Neutrophils Abs. 10,400 /uL [address] (Segs and Bands) Neutrophils Percent 79.9 % [address] Lymphocytes Percent 7.6 % [address] Monocytes Percent 8.6 % [address] Immature Granulocyte 0.7 % [address] Percent Eosinophils Percent 2.7 % [address] Basophil Percent 0.5 % [address] Nucleated RBC 0 /[address] Specimen Blood - Blood specimen (specimen) Performing Organization Address [facility] Phone Number [address] [place] [id number] MAGNESIUM (08/03/2020 8:34 AM CDT) Pathologist Sig nature Magnesium 2.8 (H) 1.8 - 2.4 mg/dL [address] Specimen Blood - Blood specimen (specimen) Performing Organization Address [facility] Phone Number [address] [place] [id number] BASIC METABOLIC PANEL (08/03/2020 8:34 AM CDT) Pathologist Sig nature Glucose 152 (H) 70 - 100 mg/dL [address] BUN 83 (H) 6 - 22 mg/dL [address] Creatinine 2.05 (H) 0.80 - 1.[address] mg/dL BUN/Creatinine Ratio 40.5 (H) 10.0 - 25.[address] Sodium 138 135 - 145 meq/L [address] Potassium 3.5 3.5 - 5.3 meq/L [address] Chloride 101 99 - 110 meq/L [address] CO2 27 20 - 29 meq/L [address] Anion Gap with K 14 6 - 20 meq/L [address] Calcium 7.9 (L) 8.5 - 10.[address] mg/dL Age [address] eGFR Non- 31 (L) >=[address] [place] mL/min/1.73m2 eGFR 38 (L) >=[address] mL/min/1.73m2 Specimen Blood - Blood specimen (specimen) Performing Organization Address City/[facility] Phone Number [address] [place] [address], [place] [address] GLUCOSE BY METER, POCT (08/03/2020 6:16 AM CDT) Pathologist Sig nature Glucose POC 156 (H) 70 - 99 mg/dL [facility] POINT OF CARE TESTING Specimen Blood - Blood specimen (specimen) Performing Organization Address City/[facility]/Zipcode Phone Number [facility] POINT OF [address] [place] [address], [place] [address] CARE TESTING GLUCOSE BY METER, POCT (08/03/2020 5:41 AM CDT) Pathologist Sig nature Glucose POC 67 (L) 70 - 99 mg/dL [facility] POINT OF CARE TESTING Specimen Blood - Blood specimen (specimen) Performing Organization Address [facility] Phone Number [facility] POINT OF [address] [place] [address], [place] [address] CARE TESTING GLUCOSE BY METER, POCT (08/02/2020 9:28 PM CDT) Pathologist Sig nature Glucose POC 197 (H) 70 - 99 mg/dL [facility] POINT [facility] CARE TESTING Specimen Blood - Blood specimen (specimen) Performing Organization Address City/[facility]/Zipcode Phone Number [facility] POINT OF [address] [place] [address] CARE TESTING COVID-19 SCREEN TO RULE OUT INFECTIVE STATUS (08/02/2020 6:22 PM CDT) SARS CoV RNA, RT Not Detected Not Detected [facility] PCR LABORATORY Specimen Respiratory - Nasopharyngeal swab (speci men) Narrative Performed At Your Covid-19 test is negative: [facility] 1)Avoiding close contact is still recommended. 2)Cover your coughs and snee zes. 3)Wash your hands often with soap and water for at least 20 seconds or use an alcohol-based concrete conveyor operator containing over 60% alcohol. Avoid touching your face. 4)Avoid sharing personal household items, including dishes, cups, utensils, towels, clothing, or bedding. These items should be cleaned thoroughly with soap and water after use. Clean all "high touch" surfaces in your home daily. 5) Monitor your symptoms. Contact your provider if you are feeling worse. If you have shortness of breath or difficulty breathing, call 911. This test was performed by polymerase chain reaction (PCR) on the [employer] instrument. This assay is for in vitro diagnostic use under FDA Emergency Use Authorization only. Optimal performance of this test requires appropriate specimen collection, storage, and transport to the test site. Detection of SARS-CoV-2 RNA may be affected by sample collection methods, patient factors (eg, presence of symptoms), and/or stage of infection. False-negative results may arise from degradation of viral RNA during shipping/storage. Results should be interpreted by a trained professional in conjunction with the pat ient s history and clinical signs and symptoms, and epidemiological risk factors. Negative (Not Detected) results do not preclude infection with the SARS-CoV-2 virus and should not be the sole basis of patient treatment/management or public health decision. Follow up testing should be performed according to the current CDC recommendations. Performing Organization Address City/State/Zipcode Phone Number NINNEKAH ESEQUIEL [place] [address] [place], [place] [id number] LABORATORY [address] GLUCOSE BY METER, POCT (08/02/2020 5:07 PM CDT) Pathologist Sig nature Glucose POC 203 (H) 70 - 99 mg/dL [facility] POINT OF CARE TESTING Specimen Blood - Blood specimen (specimen) Performing Organization Address [facility] Phone Number [facility] POINT OF [address] [place] [address], [place] [address] CARE TESTING GLUCOSE BY METER, POCT (08/02/2020 12:11 PM CDT) Pathologist Sig nature Glucose POC 151 (H) 70 - 99 mg/dL [facility] POINT OF CARE TESTING Specimen Blood - Blood specimen (specimen) Performing Organization Address [facility] Phone Number [facility] POINT OF [address] [place] [address], [place] [address] CARE TESTING GLUCOSE BY METER, POCT (08/02/2020 8:11 AM CDT) Pathologist Sig nature Glucose POC 106 (H) 70 - 99 mg/dL [facility] POINT OF CARE TESTING Specimen Blood - Blood specimen (specimen) Performing Organization Address [facility] Phone Number [facility] POINT OF [address] [place] [address], [place] [address] CARE TESTING LAB ONLY-COMPLETE BLOOD COUNT WITH DIFFERENTIAL (08/02/2020 5:21 AM CDT) Pathologist Sig nature WBC 13.4 (H) 4.0 - 11.0 K/uL [address] RBC 3.59 (L) 4.40 - 5.80 [place] [address] [facility] M/uL Hemoglobin 10.9 (L) 13.5 - 17.[address] g/dL Hematocrit 33.8 (L) 40.0 - 50.0 % [address] MCV 94.2 80.0 - 98.[address] MCH 30.4 25.5 - 34.[address] MCHC 32.2 31.5 - 36.[address] g/dL RDW-CV 13.2 11.5 - 15.5 % [address] RDW-SD 45.6 35.5 - 50.[address] Platelet Count 278 140 - 400 K/uL [address] MPV 10.3 8.5 - 12.[address] Seg Neut Absolute 11.1 (H) 1.8 - 8.0 K/uL [address] Lymphocytes Absolute 1.0 0.8 - 4.1 K/uL [place] [address] [facility] Monocytes Absolute 0.9 0.0 - 1.0 K/uL [address] Eosinophils Absolute 0.3 0.0 - 0.7 K/uL [place] [address] [facility] Basophil Absolute 0.1 0.0 - 0.2 K/uL [address] Immature Granulocyte 0.10 (H) 0.00 - 0.06 [place] [address] [facility] Absolute K/uL Neutrophils Abs. 11,100 /uL [address] (Segs and Bands) Neutrophils Percent 83.0 % [address] Lymphocytes Percent 7.3 % [address] Monocytes Percent 6.4 % [address] Immature Granulocyte 0.7 % [address] Percent Eosinophils Percent 2.2 % [address] Basophil Percent 0.4 % [address] Nucleated RBC 0 /[address] Specimen Blood - Blood specimen (specimen) Performing Organization Address [facility] Phone Number [address] [place] [address] MAGNESIUM (08/02/2020 5:21 AM CDT) Pathologist Sig nature Magnesium 2.8 (H) 1.8 - 2.4 mg/dL [address] Specimen Blood - Blood specimen (specimen) Performing Organization Address [facility] Phone Number [address] [place] [address] BASIC METABOLIC PANEL (08/02/2020 5:21 AM CDT) Pathologist Sig nature Glucose 105 (H) 70 - 100 mg/dL [address] BUN 86 (H) 6 - 22 mg/dL [address] Creatinine 2.05 (H) 0.80 - 1.30 [facility] mg/dL BUN/Creatinine Ratio 42.0 (H) 10.0 - 25.[address] Sodium 139 135 - 145 meq/L [address] Potassium 3.7 3.5 - 5.3 meq/L [address] Chloride 101 99 - 110 meq/L [address] CO2 28 20 - 29 meq/L [address] Anion Gap with K 14 6 - 20 meq/L [address] Calcium 8.0 (L) 8.5 - 10.[address] mg/dL Age [address] eGFR Non- 31 (L) >=[address] Armenian mL/min/1.73m2 eGFR 38 (L) >=[address] mL/min/1.73m2 Specimen Blood - Blood specimen (specimen) Performing Organization Address City/[facility] Phone Number [address] [place] [address] [place] [address] GLUCOSE BY METER, POCT (08/02/2020 5:15 AM CDT) Pathologist Sig nature Glucose POC 120 (H) 70 - 99 mg/dL [facility] POINT OF CARE TESTING Specimen Blood - Blood specimen (specimen) Performing Organization Address [facility] Phone Number [facility] POINT OF [address] [place] [address] [place] [address] CARE TESTING GLUCOSE BY METER, POCT (08/01/2020 8:38 PM CDT) Pathologist Sig nature Glucose POC 216 (H) 70 - 99 mg/dL [facility] POINT OF CARE TESTING Specimen Blood - Blood specimen (specimen) Performing Organization Address [facility] Phone Number [facility] POINT OF [address] [place] [address] [place] [address] CARE TESTING GLUCOSE BY METER, POCT (08/01/2020 5:08 PM CDT) Pathologist Sig nature Glucose POC 180 (H) 70 - 99 mg/dL [facility] POINT OF CARE TESTING Specimen Blood - Blood specimen (specimen) Performing Organization Address [facility] Phone Number [facility] POINT OF [address] [place] [address] CARE TESTING GLUCOSE BY METER, POCT (08/01/2020 11:37 AM CDT) Pathologist Sig luann Glucose POC 187 (H) 70 - 99 mg/dL [facility] O POINT OF CARE TESTING Specimen Blood - Blood specimen (specimen) Performing Organization Address City/State/Zipcode Phone Number [facility] POINT [place] [address] [place] [address] CARE TESTING LAB ONLY-COMPLETE BLOOD COUNT WITH DIFFERENTIAL (08/01/2020 9:32 AM CDT) Pathologist Sig [facility] WBC 16.1 (H) 4.0 - 11.0 K/uL [address] RBC 4.03 (L) 4.40 - 5.[address] M/uL Hemoglobin 12.4 (L) 13.5 - 17.[address] g/dL Hematocrit 37.8 (L) 40.0 - 50.0 % [address] MCV 93.8 80.0 - 98.[address] MCH 30.8 25.5 - 34.[address] MCHC 32.8 31.5 - 36.[address] g/dL RDW-CV 13.2 11.5 - 15.5 % [address] RDW-SD 45.5 35.5 - 50.[address] Platelet Count 306 140 - 400 K/uL [address] MPV 9.9 8.5 - 12.[address] Seg Neut Absolute 14.0 (H) 1.8 - 8.0 K/uL [address] Lymphocytes Absolute 0.8 0.8 - 4.1 K/uL [place] [address] [facility] Monocytes Absolute 0.8 0.0 - 1.0 K/uL [place] [address] [facility] Eosinophils Absolute 0.3 0.0 - 0.7 K/uL [place] [address] [facility] Basophil Absolute 0.1 0.0 - 0.2 K/uL [address] Immature Granulocyte 0.18 (H) 0.00 - 0.06 [place] [address] [facility] Absolute K/uL Neutrophils Abs. 14,000 /uL [address] (Segs and Bands) Neutrophils Percent 87.2 % [address] Lymphocytes Percent 4.7 % [address] Monocytes Percent 5.0 % [address] Immature Granulocyte 1.1 % [address] Percent Eosinophils Percent 1.6 % [address] Basophil Percent 0.4 % [address] Nucleated RBC 0 /[address] Specimen Blood - Blood specimen (specimen) Performing Organization Address [facility] Phone Number [address] [place] [address] MAGNESIUM (08/01/2020 9:32 AM CDT) Pathologist Sig nature Magnesium 2.7 (H) 1.8 - 2.4 mg/dL [address] Specimen Blood - Blood specimen (specimen) Performing Organization Address [facility] Phone Number [address] [place] [address] BASIC METABOLIC PANEL (08/01/2020 9:32 AM CDT) Pathologist Sig nature Glucose 236 (H) 70 - 100 mg/dL [address] BUN 77 (H) 6 - 22 mg/dL [address] Creatinine 2.02 (H) 0.80 - 1.[address] mg/dL BUN/Creatinine Ratio 38.1 (H) 10.0 - 25.[address] Sodium 139 135 - 145 meq/L [address] Potassium 3.3 (L) 3.5 - 5.3 meq/L [address] Chloride 99 99 - 110 meq/L [address] CO2 28 20 - 29 meq/L [address] Anion Gap with K 15 6 - 20 meq/L [address] Calcium 8.0 (L) 8.5 - 10.[address] mg/dL Age [address] eGFR Non- 32 (L) >=[address] Armenian mL/min/1.73m2 eGFR 39 (L) >=[address] mL/min/1.73m2 Specimen Blood - Blood specimen (specimen) Performing Organization Address City/State/[facility] Phone Number NINNEKAH [address] [facility] [address] [place] [address], [place] [address] GLUCOSE BY METER, POCT (08/01/2020 6:51 AM CDT) Pathologist Sig nature Glucose POC 169 (H) 70 - 99 mg/dL [facility] POINT OF CARE TESTING Specimen Blood - Blood specimen (specimen) Performing Organization Address [facility] Phone Number [facility] POINT OF [address] [place] [address], [place] [address] CARE TESTING GLUCOSE BY METER, POCT (07/31/2020 8:58 PM CDT) Pathologist Sig nature Glucose POC 83 70 - 99 mg/dL [facility] POINT OF CARE TESTING Specimen Blood - Blood specimen (specimen) Performing Organization Address [facility] Phone Number [facility] POINT OF [address] [place] [address], [place] [address] CARE TESTING GLUCOSE BY METER, POCT (07/31/2020 8:39 PM CDT) Pathologist Sig nature Glucose POC 67 (L) 70 - 99 mg/dL [facility] POINT OF CARE TESTING Specimen Blood - Blood specimen (specimen) Performing Organization Address [facility] Phone Number [facility] POINT OF [address] [place] [address], [place] [address] CARE TESTING GLUCOSE BY METER, POCT (07/31/2020 5:06 PM CDT) Pathologist Sig nature Glucose POC 120 (H) 70 - 99 mg/dL [facility] POINT OF CARE TESTING Specimen Blood - Blood specimen (specimen) Performing Organization Address [facility] Phone Number [facility] POINT OF [address] [place] [address], [place] [address] CARE TESTING GLUCOSE BY METER, POCT (07/31/2020 11:53 AM CDT) Pathologist Sig nature Glucose POC 157 (H) 70 - 99 mg/dL [facility] POINT OF CARE TESTING Specimen Blood - Blood specimen (specimen) Performing Organization Address [facility] Phone Number [facility] POINT OF [address] [place] [address], [place] [address] CARE TESTING GLUCOSE BY METER, POCT (07/31/2020 9:31 AM CDT) Pathologist Sig nature Glucose POC 107 (H) 70 - 99 mg/dL [facility] POINT OF CARE TESTING Specimen Blood - Blood specimen (specimen) Performing Organization Address [facility] Phone Number [facility] POINT OF [address] [place] [address], [place] [address] CARE TESTING GLUCOSE BY METER, POCT (07/31/2020 6:17 AM CDT) Pathologist Sig nature Glucose POC 134 (H) 70 - 99 mg/dL [facility] POINT OF CARE TESTING Specimen Blood - Blood specimen (specimen) Performing Organization Address [facility] Phone Number [facility] POINT OF [address] [place] [address] CARE TESTING GLUCOSE BY METER, POCT (07/31/2020 5:53 AM CDT) Pathologist Sig nature Glucose POC 55 (LL) 70 - 99 mg/dL [facility] POINT OF CARE TESTING Specimen Blood - Blood specimen (specimen) Performing Organization Address [facility] Phone Number [facility] POINT OF [address] [place] [address] CARE TESTING GLUCOSE BY METER, POCT (07/31/2020 5:51 AM CDT) Pathologist Sig nature Glucose POC 53 (LL) 70 - 99 mg/dL [facility] POINT OF CARE TESTING Specimen Blood - Blood specimen (specimen) Performing Organization Address [facility] Phone Number [facility] POINT OF [address] [place] [address] CARE TESTING LAB ONLY-COMPLETE BLOOD COUNT WITH DIFFERENTIAL (07/31/2020 5:51 AM CDT) Pathologist Sig nature WBC 10.9 4.0 - 11.0 K/uL [facility] RBC 4.13 (L) 4.40 - 5.[address] M/uL Hemoglobin 12.4 (L) 13.5 - 17.[address] g/dL Hematocrit 38.2 (L) 40.0 - 50.0 % [address] MCV 92.5 80.0 - 98.[address] MCH 30.0 25.5 - 34.[address] MCHC 32.5 31.5 - 36.[address] g/dL RDW-CV 13.1 11.5 - 15.5 % [address] RDW-SD 44.4 35.5 - 50.[address] Platelet Count 317 140 - 400 K/uL [address] MPV 10.1 8.5 - 12.[address] Seg Neut Absolute 8.2 (H) 1.8 - 8.0 K/uL [address] Lymphocytes Absolute 1.2 0.8 - 4.1 K/uL [place] [address] [facility] Monocytes Absolute 1.0 0.0 - 1.0 K/uL [address] Eosinophils Absolute 0.3 0.0 - 0.7 K/uL [place] [address] [facility] Basophil Absolute 0.1 0.0 - 0.2 K/uL [address] Immature Granulocyte 0.13 (H) 0.00 - 0.[address] Absolute K/uL Neutrophils Abs. 8,200 /uL [address] (Segs and Bands) Neutrophils Percent 75.3 % [address] Lymphocytes Percent 11.3 % [address] Monocytes Percent 8.8 % [address] Immature Granulocyte 1.2 % [address] Percent Eosinophils Percent 2.8 % [address] Basophil Percent 0.6 % [address] Nucleated RBC 0 /[address] Specimen Blood - Blood specimen (specimen) Performing Organization Address [facility] Phone Number [address] [place] [address] MAGNESIUM (07/31/2020 5:51 AM CDT) Pathologist Sig nature Magnesium 2.8 (H) 1.8 - 2.4 mg/dL [address] Specimen Blood - Blood specimen (specimen) Performing Organization Address [facility] Phone Number [address] [place] [address], [place] [address] BASIC METABOLIC PANEL (07/31/2020 5:51 AM CDT) Pathologist Sig nature Glucose 56 (LL) 70 - 100 mg/dL [address] BUN 79 (H) 6 - 22 mg/dL [address] Creatinine 2.04 (H) 0.80 - 1.[address] mg/dL BUN/Creatinine Ratio 38.7 (H) 10.0 - 25.[address] Sodium 140 135 - 145 meq/L [address] Potassium 3.7 3.5 - 5.3 meq/L [address] Chloride 100 99 - 110 meq/L [address] CO2 29 20 - 29 meq/L [address] Anion Gap with K 15 6 - 20 meq/L [address] Calcium 8.0 (L) 8.5 - 10.[address] mg/dL Age [address] eGFR Non- 31 (L) >=[address] Armenian mL/min/1.73m2 eGFR 38 (L) >=[address] mL/min/1.73m2 Specimen Blood - Blood specimen (specimen) Performing Organization Address City/[facility] Phone Number [place] [address] [place] [address] GLUCOSE BY METER, POCT (07/30/2020 8:22 PM CDT) Pathologist Sig nature Glucose POC 128 (H) 70 - 99 mg/dL [facility] POINT OF CARE TESTING Specimen Blood - Blood specimen (specimen) Performing Organization Address [facility] Phone Number [facility] POINT OF [address] [place] [address], [place] [address] CARE TESTING GLUCOSE BY METER, POCT (07/30/2020 4:59 PM CDT) Pathologist Sig nature Glucose POC 130 (H) 70 - 99 mg/dL [facility] POINT OF CARE TESTING Specimen Blood - Blood specimen (specimen) Performing Organization Address [facility] Phone Number [facility] POINT OF [address] [place] [address] CARE TESTING GLUCOSE BY METER, POCT (07/30/2020 11:18 AM CDT) Pathologist Sig nature Glucose POC 185 (H) 70 - 99 mg/dL [facility] O POINT OF CARE TESTING Specimen Blood - Blood specimen (specimen) Performing Organization Address [facility] Phone Number [facility] POINT OF [address] [place] [address] CARE TESTING GLUCOSE BY METER, POCT (07/30/2020 10:54 AM CDT) Pathologist Sig nature Glucose POC 124 (H) 70 - 99 mg/dL [facility] O POINT OF CARE TESTING Specimen Blood - Blood specimen (specimen) Performing Organization Address [facility] Phone Number [facility] POINT OF [address] [place] [address] CARE TESTING LAB ONLY-COMPLETE BLOOD COUNT WITH DIFFERENTIAL (07/30/2020 8:15 AM CDT) Pathologist Sig nature WBC 11.0 4.0 - 11.0 K/uL [address] RBC 4.16 (L) 4.40 - 5.[address] M/uL Hemoglobin 12.7 (L) 13.5 - 17.[address] g/dL Hematocrit 38.0 (L) 40.0 - 50.0 % [address] MCV 91.3 80.0 - 98.[address] MCH 30.5 25.5 - 34.[address] MCHC 33.4 31.5 - 36.[address] g/dL RDW-CV 13.1 11.5 - 15.5 % [address] RDW-SD 43.8 35.5 - 50.[address] Platelet Count 298 140 - 400 K/uL [address] MPV 10.0 8.5 - 12.[address] Seg Neut Absolute 8.2 (H) 1.8 - 8.0 K/uL [place] [address] [facility] Lymphocytes Absolute 1.2 0.8 - 4.1 K/uL [place] [address] [facility] Monocytes Absolute 1.0 0.0 - 1.0 K/uL [address] Eosinophils Absolute 0.4 0.0 - 0.7 K/uL [place] [address] [facility] Basophil Absolute 0.1 0.0 - 0.2 K/uL [address] Immature Granulocyte 0.20 (H) 0.00 - 0.06 [place] [address] [facility] Absolute K/uL Neutrophils Abs. 8,200 /uL [address] (Segs and Bands) Neutrophils Percent 74.3 % [address] Lymphocytes Percent 10.4 % [address] Monocytes Percent 9.4 % [address] Immature Granulocyte 1.8 % [address] Percent Eosinophils Percent 3.3 % [address] Basophil Percent 0.8 % [address] Nucleated RBC 0 /[address] Specimen Blood - Blood specimen (specimen) Performing Organization Address [facility] Phone Number [address] [address] MAGNESIUM (07/30/2020 8:15 AM CDT) Pathologist Sig nature Magnesium 2.6 (H) 1.8 - 2.4 mg/dL [address] Specimen Blood - Blood specimen (specimen) Performing Organization Address [facility] Phone Number [address] [address] BASIC METABOLIC PANEL (07/30/2020 8:15 AM CDT) Pathologist Sig nature Glucose 78 70 - 100 mg/dL [address] BUN 80 (H) 6 - 22 mg/dL [address] Creatinine 2.10 (H) 0.80 - 1.[address] mg/dL BUN/Creatinine Ratio 38.1 (H) 10.0 - 25.[address] Sodium 138 135 - 145 meq/L [address] Potassium 3.4 (L) 3.5 - 5.3 meq/L [address] Chloride 99 99 - 110 meq/L [address] CO2 30 (H) 20 - 29 meq/L [address] Anion Gap with K 12 6 - 20 meq/L [address] Calcium 8.1 (L) 8.5 - 10.[address] mg/dL Age [address] eGFR Non- 30 (L) >=[address] Armenian mL/min/1.73m2 eGFR 37 (L) >=[address] mL/min/1.73m2 Specimen Blood - Blood specimen (specimen) Performing Organization Address [facility] Phone Number [address] [place] [address], [place] [address] GLUCOSE BY METER, POCT (07/30/2020 5:29 AM CDT) Pathologist Sig nature Glucose POC 78 70 - 99 mg/dL [facility] POINT OF CARE TESTING Specimen Blood - Blood specimen (specimen) Performing Organization Address [facility] Phone Number [facility] POINT OF [address] [place] [address], [place] [address] CARE TESTING GLUCOSE BY METER, POCT (07/29/2020 9:21 PM CDT) Pathologist Sig nature Glucose POC 151 (H) 70 - 99 mg/dL [facility] POINT OF CARE TESTING Specimen Blood - Blood specimen (specimen) Performing Organization Address [facility] Phone Number [facility] POINT OF [address] [place] [address], [place] [address] CARE TESTING GLUCOSE BY METER, POCT (07/29/2020 5:22 PM CDT) Pathologist Sig nature Glucose POC 208 (H) 70 - 99 mg/dL [facility] POINT OF CARE TESTING Specimen Blood - Blood specimen (specimen) Performing Organization Address [facility] Phone Number [facility] POINT OF [address] [place] [address], [place] [address] CARE TESTING GLUCOSE BY METER, POCT (07/29/2020 11:11 AM CDT) Pathologist Sig nature Glucose POC 196 (H) 70 - 99 mg/dL [facility] POINT OF CARE TESTING Specimen Blood - Blood specimen (specimen) Performing Organization Address [facility] Phone Number [facility] POINT OF [address] [place] [address], [place] [address] CARE TESTING PROCALCITONIN (07/29/2020 10:38 AM CDT) Pathologist Sig nature Procalcitonin 0.15 (H) <0.07 ng/mL [address] Specimen Blood - Blood specimen (specimen) Narrative Performed At Suspected Lower Respiratory Tract Infect ion: [address] 0.1-0.25: Low risk for bacterial infection; Antibiotic s discouraged. > 0.25: Increased likelihood for bacterial infection; Antibiotics encouraged. Suspected Sepsis: 0.1-0.5: Low likelihood for sepsis; Anti biotics discouraged. > 0.5: Increased Likelihood for sepsis; Antibiotics encouraged. > 2.0: High risk of sepsis/septic shock; Antibiotics s trongly encouraged. Decisions on antibiotic use should not be based solely on procalcitonin levels. If antibiotics are administered, repeat procalcitonin testing should be performed every 2-3 da ys to consider early antibiotic cessation. PCT is a dynamic biomarker and most useful when trends are analyzed over time in accompaniment with other clinical data. Performing Organization Address City/[facility] Phone Number [address] [place] [address] C-REACTIVE PROTEIN (INFLAMMATION) (07/29/2020 10:38 AM CDT) Pathologist [facility] CRP 37.4 (H) 0.0 - 8.0 mg/L [address] Specimen Blood - Blood specimen (specimen) Performing Organization Address [facility] Phone Number [address] [place] [id number] LAB ONLY-COMPLETE BLOOD COUNT WITH DIFFERENTIAL (07/29/2020 10:38 AM CDT) Pathologist [facility] WBC 11.1 (H) 4.0 - 11.0 K/uL [address] RBC 4.16 (L) 4.40 - 5.[address] M/uL Hemoglobin 12.6 (L) 13.5 - 17.[address] g/dL Hematocrit 38.0 (L) 40.0 - 50.0 % [address] MCV 91.3 80.0 - 98.[address] MCH 30.3 25.5 - 34.[address] MCHC 33.2 31.5 - 36.[address] g/dL RDW-CV 13.1 11.5 - 15.5 % [address] RDW-SD 43.5 35.5 - 50.[address] Platelet Count 326 140 - 400 K/uL [address] MPV 10.5 8.5 - 12.[address] Seg Neut Absolute 8.8 (H) 1.8 - 8.0 K/uL [address] Lymphocytes Absolute 1.0 0.8 - 4.1 K/uL [place] [address] [facility] Monocytes Absolute 0.8 0.0 - 1.0 K/uL [address] Eosinophils Absolute 0.2 0.0 - 0.7 K/uL [place] [address] [facility] Basophil Absolute 0.1 0.0 - 0.2 K/uL [address] Immature Granulocyte 0.24 (H) 0.00 - 0.[address] Absolute K/uL Neutrophils Abs. 8,800 /uL [address] (Segs and Bands) Neutrophils Percent 78.9 % [address] Lymphocytes Percent 9.1 % [address] Monocytes Percent 7.5 % [address] Immature Granulocyte 2.2 % [address] Percent Eosinophils Percent 1.7 % [address] Basophil Percent 0.6 % [address] Nucleated RBC 0 /[address] Specimen Blood - Blood specimen (specimen) Performing Organization Address [facility] Phone Number [address] [place] [phone] MAGNESIUM (07/29/2020 10:38 AM CDT) Pathologist Sig nature Magnesium 2.6 (H) 1.8 - 2.4 mg/dL [address] Specimen Blood - Blood specimen (specimen) Performing Organization Address [facility] Phone Number [address] [place] [address], [place] [address] BASIC METABOLIC PANEL (07/29/2020 10:38 AM CDT) Pathologist Sig nature Glucose 229 (H) 70 - 100 mg/dL [address] BUN 79 (H) 6 - 22 mg/dL [address] Creatinine 2.03 (H) 0.80 - 1.[address] mg/dL BUN/Creatinine Ratio 38.9 (H) 10.0 - 25.[address] Sodium 138 135 - 145 meq/L [address] Potassium 3.7 3.5 - 5.3 meq/L [address] Chloride 97 (L) 99 - 110 meq/L [address] CO2 28 20 - 29 meq/L [address] Anion Gap with K 17 6 - 20 meq/L [address] Calcium 8.1 (L) 8.5 - 10.[address] mg/dL Age [address] eGFR Non- 32 (L) >=[address] Armenian mL/min/1.73m2 eGFR 38 (L) >=[address] mL/min/1.73m2 Specimen Blood - Blood specimen (specimen) Performing Organization Address City/State/Zipcode Phone Number [address] [place] [address] XRAY CHEST PORTABLE - (07/29/2020 9:44 AM CDT)Only the most recent of4 results within the time period is included. Specimen Narrative Performed At [facility] Patient Name: STEPHEN HADDAD Date of : 1940 Procedure: XRAY CHEST PORTABLE Date of Service: 07/29/2020 EXAM: XRAY CHEST PORTABLE INDICATION:Hypoxia COMPARISON(S): 07/25/2020 FINDINGS: Left shoulder arthroplasty is again noted. Cardiac con figuration is probably unchanged. There is be further increase in th e increased density at the left base which may represent pleural f luid plus atelectasis or infiltrate. The previously seen pulmona ry vascular prominence is improved. Finalized by: Manan Woodard MD on 07/09 9:40 AM CDT Patient/Procedure Information: [facility] MRN/WEN: [id number] Order Number: [id number] Accession Number: [id number] Ordering Provider: DARIN NATHAN Authorizing Provider: DARIN NATHAN Procedure Note Interface, [facility]iant[facility] - 07/29/2020 9:42 AM CDT Patient Name: STEPHEN HADDAD Date of : 1940 Procedure: XRAY CHEST PORTABLE Date of Service: 07/29/2020 EXAM: XRAY CHEST PORTABLE INDICATION:Hypoxia COMPARISON(S): 07/25/2020 FINDINGS: Left shoulder arthroplasty is again note d. Cardiac configuration is probably unchanged. There is be further increase in the increased density at the left base which may represent pleural fluid plus atelectasis or infiltrate. The previously seen pulmonar y vascular prominence is improved. Finalized by: Manna Woodard MD on 07/09 9:40 AM CDT Patient/Procedure Information: [facility] MRN/WEN: [id number] Order Number: [id number] Accession Number: [id number] Ordering Provider: DARIN NATHAN Authorizing Provider: DARIN NATHAN Performing Organization Address [facility] Phone Number [id number] GLUCOSE BY METER, POCT (07/29/2020 6:10 AM CDT) Pathologist Sig nature Glucose POC 164 (H) 70 - 99 mg/dL [facility] POINT OF CARE TESTING Specimen Blood - Blood specimen (specimen) Performing Organization Address [facility] Phone Number [facility] POINT OF [address] [place] [phone] CARE TESTING GLUCOSE BY METER, POCT (07/28/2020 7:47 PM CDT) Pathologist Sig nature Glucose POC 247 (H) 70 - 99 mg/dL [facility] POINT OF CARE TESTING Specimen Blood - Blood specimen (specimen) Performing Organization Address [facility] Phone Number [facility] POINT OF [address] [place] [address] CARE TESTING GLUCOSE BY METER, POCT (07/28/2020 4:39 PM CDT) Pathologist Sig nature Glucose POC 285 (H) 70 - 99 mg/dL [facility] POINT OF CARE TESTING Specimen Blood - Blood specimen (specimen) Performing Organization Address City/State/Zipcode Phone Number [facility] POINT OF [address] [facility] [place] [address] CARE TESTING GLUCOSE BY METER, POCT (07/28/2020 11:34 AM CDT) Pathologist Sig luann Glucose POC 310 (H) 70 - 99 mg/dL [facility] O POINT OF CARE TESTING Specimen Blood - Blood specimen (specimen) Performing Organization Address [facility]/Zipcode Phone Number [facility] POINT OF [address] [place] [address] CARE TESTING LAB ONLY-COMPLETE BLOOD COUNT WITH DIFFERENTIAL (07/28/2020 7:51 AM CDT) Pathologist Sig luann WBC 11.3 (H) 4.0 - 11.0 K/uL [address] RBC 4.08 (L) 4.40 - 5.[address] M/uL Hemoglobin 12.5 (L) 13.5 - 17.[address] g/dL Hematocrit 37.9 (L) 40.0 - 50.0 % [address] MCV 92.9 80.0 - 98.[address] MCH 30.6 25.5 - 34.[address] MCHC 33.0 31.5 - 36.[address] g/dL RDW-CV 13.2 11.5 - 15.5 % [address] RDW-SD 45.4 35.5 - 50.[address] Platelet Count 285 140 - 400 K/uL [address] MPV 10.0 8.5 - 12.[address] Seg Neut Absolute 8.4 (H) 1.8 - 8.0 K/uL [address] Lymphocytes Absolute 1.4 0.8 - 4.1 K/uL [place] [address] [facility] Monocytes Absolute 1.1 (H) 0.0 - 1.0 K/uL [place] [address] [facility] Eosinophils Absolute 0.1 0.0 - 0.7 K/uL [place] [address] [facility] Basophil Absolute 0.1 0.0 - 0.2 K/uL [place] [address] [facility] Immature Granulocyte 0.28 (H) 0.00 - 0.[address] Absolute K/uL Neutrophils Abs. 8,400 /uL [address] (Segs and Bands) Neutrophils Percent 74.1 % [address] Lymphocytes Percent 12.3 % [address] Monocytes Percent 9.3 % [address] Immature Granulocyte 2.5 % [address] Percent Eosinophils Percent 1.1 % [address] Basophil Percent 0.7 % [address] Nucleated RBC 0 /[address] Specimen Blood - Blood specimen (specimen) Performing Organization Address [facility] Phone Number [address] [place] [phone] MAGNESIUM (07/28/2020 7:51 AM CDT) Pathologist Sig [facility] Magnesium 2.6 (H) 1.8 - 2.4 mg/dL [address] Specimen Blood - Blood specimen (specimen) Performing Organization Address [facility] Phone Number [address] [place] [phone] BASIC METABOLIC PANEL (07/28/2020 7:51 AM CDT) Pathologist Sig nature Glucose 192 (H) 70 - 100 mg/dL [address] BUN 77 (H) 6 - 22 mg/dL [address] Creatinine 1.67 (H) 0.80 - 1.[address] mg/dL BUN/Creatinine Ratio 46.1 (H) 10.0 - 25.[address] Sodium 140 135 - 145 meq/L [address] Potassium 3.7 3.5 - 5.3 meq/L [address] Chloride 99 99 - 110 meq/L [address] CO2 32 (H) 20 - 29 meq/L [address] Anion Gap with K 13 6 - 20 meq/L [address] Calcium 8.2 (L) 8.5 - 10.[address] mg/dL Age [address] eGFR Non- 40 (L) >=[address] Armenian mL/min/1.73m2 eGFR 48 (L) >=[address] mL/min/1.73m2 Specimen Blood - Blood specimen (specimen) Performing Organization Address [facility] Phone Number [address] [address] GLUCOSE BY METER, POCT (07/28/2020 5:26 AM CDT) Pathologist Sig nature Glucose POC 190 (H) 70 - 99 mg/dL [facility] POINT OF CARE TESTING Specimen Blood - Blood specimen (specimen) Performing Organization Address [facility] Phone Number [facility] POINT OF [address] [place] [phone] CARE TESTING GLUCOSE BY METER, POCT (07/27/2020 9:20 PM CDT) Pathologist Sig nature Glucose POC 293 (H) 70 - 99 mg/dL [facility] POINT OF CARE TESTING Specimen Blood - Blood specimen (specimen) Performing Organization Address [facility] Phone Number [facility] OF [address] [place] [phone] CARE TESTING GLUCOSE BY METER, POCT (07/27/2020 4:59 PM CDT) Pathologist Sig nature Glucose POC 179 (H) 70 - 99 mg/dL [facility] POINT OF CARE TESTING Specimen Blood - Blood specimen (specimen) Performing Organization Address [facility] Phone Number [facility] POINT OF [address] [place] [phone] CARE TESTING EKG to be done 3 hours post coronary intervention (07/27/2020 4:44 PM CDT)Only the most recent of5 resultswithin the time period is included. 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 Performing Organization Address [facility]/Zipcode Phone Number [employer] TROPONIN I (07/27/2020 3:17 PM CDT) Pathologist Sig nature Troponin I 0.078 (H) 0.000 - 0.028 ng/mL [facility] Specimen Blood - Blood specimen (specimen) Performing Organization Address City/State/Zipcode Phone Number [place] [address] [place] [address] Cardiac Cath Possible Angioplasty Stent Operation Agent - Left (07/27/2020 1:17 PM CDT) Specimen Narrative Performed At This result has an attachment that is no t available. [facility] Patient: STEPHEN HADDAD [facility] Exam Date: 07/27/[address] Exam Time: 01:17 PM-01:[place] [address] Department of Interventional Cardiology Cardiac Interventional Report, Diagnostic Heart Cathet erization Report : 1940 Fluoro Time: 7.8 min. Patient Status: Inpatient Age: 79 year(s) Cath Status: Patient Room: [facility] Gender: Male Diagnostic Contact Center Assistant: DANIAL OCONNOR MD Electrical Subcontractor: DANIAL OCONNOR MD Indication: Angina/CA: Unstable angina. Interventional Conclusions: Interventional Summary Mid right coronary artery: A successful Drug Eluting Stent was deployed using a RESOLUTE LEO RX 5.0X18MM. Procedures Performed: Fluoro 0.1-60 Minutes. Medication/Infusi on/Drip. Art Access - R radial artery. Selective Lt Coronary Angiography. Selective Rt Coronary Angiography. Drug Eluting Stent Placement. PTCA. Radial Artery Compression Device. IV Start. Diagnostic Findings: Coronary Angiography The coronary circulation is right dominant. Left Main Left main artery: The segment is large. Angiography sh ows no disease. Left Anterior Descending Left anterior descending artery: The seg ment is large and moderately calcified. Proximal left anterior descending: There is a 50 % stenosis. Mid left anterior desce nding: Angiography shows luminal irregularites. Distal left anterior descending: Angiography shows luminal irregularites. Circumflex Circumflex artery: The segment is large. Angiography shows no disease. First obtuse marginal: Angiography shows no disease. Second obtuse marginal: Angiography shows no disease. Right Coronary Right coronary artery: The segment is la rge. Mid right coronary artery: There is an 80 % stenosis. Left Heart Cath Left ventricular function was not assess ed. Ejection fraction was not calculated. Interventional Findings: PCI Procedure Data: The syntax score is low. Interventional Details Mid right coronary artery: The initial s tenosis was 80 %. This was an ACC/AHA Non-High/Non C lesion for intervention. Guidewire crossing was successful. A successful Drug Eluting Stent was depl oyed using a CATH GUIDE 6FR LAUNCHER JR4.0 during setup, a CATH GUIIDE LINER 6FR 5571 during setup, and a RESOLUTE LEO RX 5.0X18MM During Procedure. The total number of attempt(s) was 1. Th e maximum inflation pressure was 16(margaret). A successful Balloon angioplasty was per formed using a NC EMERGE 6.0YOT71PB MONORAIL During Procedure. The total number of attempt(s) was 2. Th e maximum inflation pressure was 12(margaret). Following intervention there is a 0 % re sidual stenosis. There was MARCIE Flow 3 before the procedure and MARCIE Flow 3 following the procedure. No significant vessel dissect ion noted. Procedure Narrative: Access Right radial artery: The puncture site was infiltrated with 1 .0 ml of 1% Lidocaine. Vascular access was obtained using modified seldinger technique and a 6FR GLIDESHEATH 25CM was adv anced into the vessel. Hemostasis/Sheath Status: Hemostasis was successful using mechanical compression (RADIAL TR BAND). Coronary Angiography Left Coronary System: A catheter was positioned into the Vesse l Ostium under fluoroscopic guidance. Contrast injections were performed using hand injection. Angiograms were obtain ed in multiple views. Right Coronary System: A catheter was positioned into the Vesse l Ostium under fluoroscopic guidance. Contrast injections were performed using hand injection. Angiograms were obtain ed in multiple views. Hemodynamic Impressions General Impressions: Hemodynamic assessm ent demonstrates No systemic hypertension. Hemodynamic Findings Pressures: Baseline: AO pressure 138/76mmHg, mean 10 3. Hemodynamic Pressures-Phase: Baseline Location : Ao Pressure s : 138 mmHg Pressure d : 76 mmHg Pressure m : 103 mmHg HR : 91 bpm Flow Calculations, Phase: Baseline VO2: 405.56 ml/min Shunts Acute complication: No complications Contrast: Description Dose Unit HIS No. Reference No. Serial No. Lot No. Omnipaque 130. 000 ml C34 C34 X-Ray: Exam total DAP: 45198.00 cGycm -sq Air Kerma/Exam Total Dose: 2110 mGy Ordering Physician: ROLANDA SALDIVAR MD, PhD CCL Catalog Librarian: KEYANA MERA RN CCL Catalog Librarian: REDD WINTER RN Scrub: CHRIS Bonner Monitor: LEXX GONZALES RN Cardiovascular Specialist: TRACEY STROUD RT(R) Primary Contact Center Assistant: ROLANDA SALDIVAR MD, PhD Diagnostic Physician Signature: Electronically signed by DANIAL OCONNOR MD on at 11:39 AM (No Signature Object) Interventional Physician Signature: Electronically signed by DANIAL OCONNOR MD on at 11:39 AM (No Signature Object) Procedure Note Interface, Inc Results No Pull Forward - 08/02/2020 11:41 AM CDT Patient: STEPHEN HADDAD [facility] Exam Date: 07/27/[address] Exam T dorie: 01:17 PM-01:31 [place] [address] [facility] Cardiac Interventional Report, Diagnosbhavana c Heart Catheterization Report : 1940 Fluoro Time: 7.8 min. Patient Status: Inpatient Age: 79 year(s) Cath Status: Patient Room: [facility] Gender: Male Diagnostic Contact Center Assistant: DANIAL HAILE MD Electrical Subcontractor: DANIAL HAILE MD Indication: Angina/CA: Unstable angina. Interventional Conclusions: Interventional Summary Mid right coronary artery: A successful Drug Eluting Stent was deployed using a RESOLUTE LEO RX 5.0X18MM. Procedures Performed: Fluoro 0.1-60 Minutes. Medication/Infusi on/Drip. Art Access - R radial artery. Selective Lt Coronary Angiography. Selective Rt Coronary Angiography. Drug Eluting Stent Placement. PTCA. Radial Artery Compression Device. IV Start. Diagnostic Findings: Coronary Angiography The coronary circulation is right domina nt. Left Main Left main artery: The segment is large. Angiography shows no disease. Left Anterior Descending Left anterior descending artery: The seg ment is large and moderately calcified. Proximal left anterior descending: There is a 50 % stenosis. Mid left anterior desce nding: Angiography shows luminal irregularites. Distal left anterior descending: Angiography shows luminal irregularites. Circumflex Circumflex artery: The segment is large. Angiography shows no disease. First obtuse marginal: Angiography shows no disease. Second obtuse marginal: Angiogr aphy shows no disease. Right Coronary Right coronary artery: The segment is la rge. Mid right coronary artery: There is an 80 % stenosis. Left Heart Cath Left ventricular function was not assess ed. Ejection fraction was not calculated. Interventional Findings: PCI Procedure Data: The syntax score is low. Interventional Details Mid right coronary artery: The initial s tenosis was 80 %. This was an ACC/AHA Non-High/Non C lesion for intervention. Guidewire crossing was successful. A successful Drug Eluting Stent was depl oyed using a CATH GUIDE 6FR LAUNCHER JR4.0 during setup, a CATH GUIIDE LINER 6FR 5571 during setup, and a RESOLUTE LEO RX 5.0X18MM During Procedure. The total number of attempt(s) was 1. Th e maximum inflation pressure was 16(margaret). A successful Balloon angioplasty was per formed using a NC EMERGE 6.7DBH21KG MONORAIL During Procedure. The total number of attempt(s) was 2. Th e maximum inflation pressure was 12(margaret). Following intervention there is a 0 % re sidual stenosis. There was MARCIE Flow 3 before the procedure and MARCIE Flow 3 following the procedure. No significant vessel dissection noted. Procedure Narrative: Access Right radial artery: The puncture site was infiltrated with 1 .0 ml of 1% Lidocaine. Vascular access was obtained using modified seldinger technique and a 6FR GLIDESHEAT H 25CM was advanced into the vessel. Hemostasis/Sheath Status: Hemostasis was successful using mechanical compression (RADIAL TR BAND). Coronary Angiography Left Coronary System: A catheter was positioned into the Vesse l Ostium under fluoroscopic guidance. Contrast injections were performed using hand injection. Angiogra ms were obtained in multiple views. Right Coronary System: A catheter was positioned into the Vesse l Ostium under fluoroscopic guidance. Contrast injections were performed using hand injection. Angiogra ms were obtained in multiple views. Hemodynamic Impressions General Impressions: Hemodynamic assessm ent demonstrates No systemic hypertension. Hemodynamic Findings Pressures: Baseline: AO pressure 138/76 mmHg, mean 103. Hemodynamic Pressures-Phase: Baseline Location : Ao Pressure s : 138 mmHg Pressure d : 76 mmHg Pressure m : 103 mmHg HR : 91 bpm Flow Calculations, Phase: Baseline VO2: 405.56 ml/min Shunts Acute complication: No complicati ons Contrast: Description Dose Un it HIS No. Reference No. Serial No. Lot No. Omnipaque 130.000 ml C34 C34 X-Ray: Exam total DAP: 46903.00 cGycm-sq Air Kerma/Exam Total Dose: 2110 mGy Ordering Physician: ROLANDA SALDIVAR MD, PhD CCL Catalog Librarian: Paz LUBIN CCL Catalog Librarian: REDD GRANDA RN Scrub: CHRIS TELLEZ Monitor: LEXX GONZALES RN Cardiovascular Specialist: TRACEY WEST RT(R) Primary Contact Center Assistant: ROLANDA SALDIVAR MD, PhD Diagnostic Physician Signature: (No Signature Object) Interventional Physician Signature: (No Signature Object) Performing Organization Address [facility]/Zipcode Phone Number [facility] [place], [place] GLUCOSE BY METER, POCT (07/27/2020 10:51 AM CDT) Pathologist Sig nature Glucose POC 178 (H) 70 - 99 mg/dL [facility] O POINT OF CARE TESTING Specimen Blood - Blood specimen (specimen) Performing Organization Address [facility] Phone Number [facility] POINT OF [address] [place] [address] CARE TESTING PETCT NUCLEAR STRESS TEST RB-82 SINGLE (07/27/2020 10:36 AM CDT) Specimen Narrative Performed At [facility] Patient Name: STEPHEN HADDAD Date of : 1940 Procedure: PETCT NUCLEAR STRESS TEST RB -82 SINGLE Date of Service: 07/27/2020 EXAM: PETCT NUCLEAR STRESS TEST RB-82 SI NGLE INDICATION:Chest pain/anginal equiv, ECG s or troponins abnormal COMPARISON(S): None Available DOSE: 58.56 mCi mCi Rb-82 IV Rest Gated Rubidium rest PET cardiac perfusion study. CT me asured attenuation correction was applied through the chest . CARDIAC PET PERFUSION STUDY Patient was experiencing chest pain, which became more severe during the study. He was evaluated by cardiology and was taken to the Operation Agent after the rest study was acquired. FINDINGS: Small area of diminished radiotracer activit y distal septum and at the apex. Counts in this region a re moderately diminished. There is a second area of moderately diminished activi ty on the rest study involving the posterolateral base. No additional perfusion defect. The gated study shows mild hypokinesia. There is appro priate thickening in all segments. LVEF of 46%. There is mild/moderate l eft jugular chamber dilatation, with end-systolic vo lume of 76 mL. On the noncontrast CT scan small bilateral pleural ef fusions are present, slightly larger left than right. Densely calc ified mitral valve annulus. Scattered coronary artery calcifications are present, primarily LAD distribution, but present also in th e RCA. Finalized by: Rafy Cuadra MD on 1:48 PM CDT Patient/Procedure Information: [facility] MRN/WEN: [id number] Order Number: [id number] Accession Number: [id number] Ordering Provider: SHELLIE FRAGA Authorizing Provider: SHELLIE FRAGA Procedure Note Interface, [facility] - 07/27/2020 1:50 PM CDT Patient Name: STEPHEN HADDAD Date of : 1940 Procedure: PETCT NUCLEAR STRESS TEST RB -82 SINGLE Date of Service: 07/27/2020 EXAM: PETCT NUCLEAR STRESS TEST RB-82 SI NGLE INDICATION:Chest pain/anginal equiv, ECG s or troponins abnormal COMPARISON(S): None Available DOSE: 58.56 mCi mCi Rb-82 IV Rest Gated Rubidium rest PET cardiac perfusio n study. CT measured attenuation correction was applied through the chest. CARDIAC PET PERFUSION STUDY Patient was experiencing chest pain, whi ch became more severe during the study. He was evaluated by cardiology and was taken to the Operation Agent after the rest study was acquired. FINDINGS: Small area of diminished radio tracer activity distal septum and at the apex. Counts in this region are moderately diminished. There is a second area of moderately dim inished activity on the rest study involving the posterolateral base. No additional perfusion defect. The gated study shows mild hypokinesia. There is appropriate thickening in all segments. LVEF of 46%. There is mild/moderate left jugular chamber dilatation, with end-systolic volume of 76 mL. On the noncontrast CT scan small bilate ral pleural effusions are present, slightly larger left than right. Densely calcified mitral valve annulus. Scattered coronary artery calcifications are present, primarily LAD distribution, but present also in the RC A. Finalized by: Rafy Cuadra MD on 1:48 PM CDT Patient/Procedure Information: [facility] MRN/WEN: [id number] Order Number: [id number] Accession Number: [id number] Ordering Provider: SHELLIE FRAGA Authorizing Provider: SHELLIE FRAGA Performing Organization Address [facility] Phone Number [id number] TROPONIN I (07/27/2020 7:13 AM CDT) Pathologist [facility] Troponin I 0.086 (H) 0.000 - 0.028 ng/mL [address] Specimen Blood - Blood specimen (specimen) Performing Organization Address [facility] Phone Number [address] [place] [address] LAB ONLY-COMPLETE BLOOD COUNT WITH DIFFERENTIAL (07/27/2020 7:13 AM CDT) [facility] WBC 9.9 4.0 - 11.0 K/uL [address] RBC 4.04 (L) 4.40 - 5.[address] M/uL Hemoglobin 12.2 (L) 13.5 - 17.[address] g/dL Hematocrit 37.9 (L) 40.0 - 50.0 % [address] MCV 93.8 80.0 - 98.[address] MCH 30.2 25.5 - 34.[address] MCHC 32.2 31.5 - 36.[address] g/dL RDW-CV 13.3 11.5 - 15.5 % [address] RDW-SD 45.8 35.5 - 50.[address] Platelet Count 236 140 - 400 K/uL [address] MPV 10.1 8.5 - 12.[address] Seg Neut Absolute 7.6 1.8 - 8.0 K/uL [address] Lymphocytes Absolute 0.9 0.8 - 4.1 K/uL [place] [address] [facility] Monocytes Absolute 1.1 (H) 0.0 - 1.0 K/uL [address] Eosinophils Absolute 0.1 0.0 - 0.7 K/uL [place] [address] [facility] Basophil Absolute 0.1 0.0 - 0.2 K/uL [address] Immature Granulocyte 0.21 (H) 0.00 - 0.[address] Absolute K/uL Neutrophils Abs. 7,600 /uL [address] (Segs and Bands) Neutrophils Percent 76.6 % [address] Lymphocytes Percent 9.2 % [address] Monocytes Percent 10.6 % [address] Immature Granulocyte 2.1 % [address] Percent Eosinophils Percent 1.0 % [address] Basophil Percent 0.5 % [address] Nucleated RBC 0 /[address] Specimen Blood - Blood specimen (specimen) Performing Organization Address [facility] Phone Number [address] [place] [address] MAGNESIUM (07/27/2020 7:13 AM CDT) Pathologist Sig nature Magnesium 2.6 (H) 1.8 - 2.4 mg/dL [address] Specimen Blood - Blood specimen (specimen) Performing Organization Address [facility] Phone Number [address] [place] [address] BASIC METABOLIC PANEL (07/27/2020 7:13 AM CDT) Pathologist Sig nature Glucose 181 (H) 70 - 100 mg/dL [address] BUN 75 (H) 6 - 22 mg/dL [address] Creatinine 1.64 (H) 0.80 - 1.[address] mg/dL BUN/Creatinine Ratio 45.7 (H) 10.0 - 25.[address] Sodium 140 135 - 145 meq/L [address] Potassium 3.5 3.5 - 5.3 meq/L [address] Chloride 99 99 - 110 meq/L [address] CO2 33 (H) 20 - 29 meq/L [address] Anion Gap with K 12 6 - 20 meq/L [address] Calcium 8.2 (L) 8.5 - 10.[address] mg/dL Age [address] eGFR Non- 41 (L) >=[address] Armenian mL/min/1.73m2 eGFR 49 (L) >=[address] mL/min/1.73m2 Specimen Blood - Blood specimen (specimen) Performing Organization Address City/[facility] Phone Number [address] [place] [address], [place] [address] GLUCOSE BY METER, POCT (07/27/2020 5:25 AM CDT) Pathologist Sig nature Glucose POC 183 (H) 70 - 99 mg/dL [facility] POINT OF CARE TESTING Specimen Blood - Blood specimen (specimen) Performing Organization Address [facility] Phone Number [facility] POINT OF [address] [place] [address] CARE TESTING GLUCOSE BY METER, POCT (07/26/2020 8:27 PM CDT) Pathologist Sig nature Glucose POC 362 (H) 70 - 99 mg/dL [facility] POINT OF CARE TESTING Specimen Blood - Blood specimen (specimen) Performing Organization Address [facility] Phone Number [facility] POINT OF [address] [place] [address], [place] [address] CARE TESTING GLUCOSE BY METER, POCT (07/26/2020 5:00 PM CDT) Pathologist Sig nature Glucose POC 264 (H) 70 - 99 mg/dL [facility] POINT OF CARE TESTING Specimen Blood - Blood specimen (specimen) Performing Organization Address [facility] Phone Number [facility] POINT OF [address] [place] [address] [place] [address] CARE TESTING GLUCOSE BY METER, POCT (07/26/2020 12:29 PM CDT) Pathologist Sig nature Glucose POC 215 (H) 70 - 99 mg/dL [facility] O POINT OF CARE TESTING Specimen Blood - Blood specimen (specimen) Performing Organization Address City/State/Zipcode Phone Number [facility] POINT OF [address] [place] [address] CARE TESTING ECHO TRANSESOPHAGEAL (07/26/2020 11:26 AM CDT) Specimen Narrative Performed At This result has an attachment that is no t available. [facility] Patient: STEPHEN HADDAD MR#: [id number] Exam Date: 07/26/2020 [facility] [address] [place] [address] BP: 155/62 mmHg HR: 78 bpm : 1940 Exam Location: Bedside Height: 78.00 "(198.1 cm) Age: 79 year(s) Patient Room: [facility] Weight: 314 lbs.(142.43 kg) Gender: Male Patient Status: Inpatient BSA: 2.73 m2 Cell Tender: AMMY ZUNIGA Reading Physician: FANNY HERNANDEZ MD Ordering Physician: SHELLIE FRAGA MD Nurse: DALILA Brown RN Cell Tender: JUANA HILL Procedure Indication(s): Endocarditis Examination: SHAMEKA with 2D imaging, Limited Spectral Doppler, Color Doppler Conclusions Overall Conclusions No evidence of vegetation. Left Ventricle: Normal left ventricular systolic function. Mitral Valve: Mild mitral regurgitation. IAS: No evidence of an atrial shunt by agitated saline. Right Ventricle: Normal right ventricular systolic function. Comparison Study Comparison Date: 07/21/2020 Comparison Study: Transesophageal Echocardiogram Unable to make direct comparison with prior echo Findings Study was performed under the care of anesthesia. Left Ventricle: Normal left ventricular size. Increased left ventricular wall thickness. Normal left ventricular systolic function. Left Atrium: Dilated left atrium by visual assessment . Spontaneous echo contrast is present in the left atrium. Left Atrial Appendage: Normal left atrial appendage size. Tracy l color flow doppler in the left atrial appendage. Normal ejection velocity. No thrombus in left atrial appendage. Aortic Valve: Tricuspid aortic valve with normal funct ion. Mild aortic cuspal calcification. No significant aortic regurgitation. Aorta: No atheroma present. Mitral Valve: Normal mitral valve structure. Mild mitr al leaflet calcification. There is mild mitral annular calcification. Mild mitral regurgitation. IAS: No evidence of an atrial shunt by agitated saline. Right Ventricle: Normal right ventricular size. Normal ri ght ventricular systolic function. Normal right ventricular wall thickness. Right Atrium: Dilated right atrium by visual assessment. Tricuspid Valve: Normal tricuspid valve structure. No significant tricu spid regurgitation. Pulmonic Valve: Normal pulmonary valve structure. No significant pulmo nary regurgitation. Pericardium: No significant pericardial effusion. Exam Details SHAMEKA Probe Type: An adult omnipl ane probe was inserted Passing of Probe: Tr ouble-free probe introduction and examination Complications: No complication s during the examination Medications Date Med Name Med Route Dose Units Comment 07/26/2020 Propofol Intravenous 110 milligrams 07/26/2020 0.9% Normal Saline Intravenou s 250 milliliters Measurements Heart Rate Mitral Valve Label Value Normal Value Label Value Normal Value Heart Rate 78 bpm MV VTI 40.1 cm MV PGmax 8 mmHg MV PGmean 3 mmHg Electronically signed by FANNY HERNANDEZ MD on 021 at 03:00 PM (No Signature Object) Procedure Note Interface, Inc Results No Pull Forward - 07/26/2020 3:02 PM CDT Patient: STEPHEN HADDAD MR#: [id number] Exam Date: 07/26/2020 [facility] [address] [place] [address] BP: 155/62 mmHg HR: 78 bpm : 1940 Exa m Location: Bedside Height: 78.00 "(198.1 cm) Age: 79 year(s) Pat ient Room: [facility] 01 Weight: 314 lbs.(142.43 kg) Gender: Male Pat ient Status: Inpatient BSA: 2.73 m2 Cell Tender: AMMY ZUNIGA Reading Physician: FANNY GARAY MD Ordering Physician: SHELLIE MARTINEZ MD Nurse: DALILA ROSAS RN Cell Tender: SILVANA VEE RDCS Procedure Indication(s): Endocar ditis Examination: SHAMEKA wit h 2D imaging, Limited Spectral Doppler, Color Doppler Conclusions Overall Conclusions No evidence of vegetation. Left Ventricle: Normal left ventricular systolic functio n. Mitral Valve: Mild mitral regurgitation. IAS: No evidence of an atrial shunt by agitat ed saline. Right Ventricle: Normal right ventricular systolic functi on. Comparison Study Comparison Date: 07/21/2020 Comparison Study: Transesophageal Echoca rdiogram Unable to make direct comparison with pr ior echo Findings Study was performed under the care of an esthesia. Left Ventricle: Normal left ventricular size. Increased left ventricular wall thickness. Normal left ventricular systolic function. Left Atrium: Dilated left atrium by visual assessment . Spontaneous echo contrast is present in the left atrium. Left Atrial Appendage: Normal left atrial appendage size. Tracy l color flow doppler in the left atrial appendage. Normal ejection velocity. No thrombus in left atrial appendage. Aortic Valve: Tricuspid aortic valve with normal funct ion. Mild aortic cuspal calcification. No significant aortic regurgitation. Aorta: No atheroma present. Mitral Valve: Normal mitral valve structure. Mild mitr al leaflet calcification. There is mild mitral annular calcification. Mild mitral regurgitation. IAS: No evidence of an atrial shunt by agitat ed saline. Right Ventricle: Normal right ventricular size. Normal ri ght ventricular systolic function. Normal right ventricular wall thickness. Right Atrium: Dilated right atrium by visual assessmen t. Tricuspid Valve: Normal tricuspid valve structure. No sig nificant tricuspid regurgitation. Pulmonic Valve: Normal pulmonary valve structure. No sig nificant pulmonary regurgitation. Pericardium: No significant pericardial effusion. Exam Details SHAMEKA Probe Type: An adult omniplane probe was inserted Passing of Probe: Trouble-f ree probe introduction and examination Complications: No compli cations during the examination Medications Date Med Name M ed Route Dose Units Comment 07/26/2020 Propofol I ntravenous 110 milligrams 07/26/2020 0.9% Normal Saline I ntravenous 250 milliliters Measurements Heart Rate Mitral Valve Label Value Nor mal Value Label Value Normal Value Heart Rate 78 bpm MV VTI 40.1 cm MV PGmax 8 mmHg MV PGmean 3 mmHg (No Signature Object) Performing Organization Address City/State/Zipcode Phone Number [facility] [place] GLUCOSE BY METER, POCT (07/26/2020 10:44 AM CDT) Pathologist Sig nature Glucose POC 199 (H) 70 - 99 mg/dL [facility] O POINT OF CARE TESTING Specimen Blood - Blood specimen (specimen) Performing Organization Address City/[facility] Phone Number [facility] POINT OF [address] [facility] [place] [address] CARE TESTING GLUCOSE BY METER, POCT (07/26/2020 9:29 AM CDT) Pathologist Sig nature Glucose POC 185 (H) 70 - 99 mg/dL [facility] O POINT OF CARE TESTING Specimen Blood - Blood specimen (specimen) Performing Organization Address [facility] Phone Number [facility] POINT OF [address] [place] [address], [place] [address] CARE TESTING LAB ONLY-COMPLETE BLOOD COUNT WITH DIFFERENTIAL (07/26/2020 6:28 AM CDT) Pathologist Sig nature WBC 10.0 4.0 - 11.0 K/uL [address] RBC 4.06 (L) 4.40 - 5.[address] M/uL Hemoglobin 12.5 (L) 13.5 - 17.[address] g/dL Hematocrit 37.6 (L) 40.0 - 50.0 % [address] MCV 92.6 80.0 - 98.[address] MCH 30.8 25.5 - 34.[address] MCHC 33.2 31.5 - 36.[address] g/dL RDW-CV 13.3 11.5 - 15.5 % [address] RDW-SD 45.1 35.5 - 50.[address] Platelet Count 214 140 - 400 K/uL [address] MPV 10.4 8.5 - 12.[address] Seg Neut Absolute 8.0 1.8 - 8.0 K/uL [address] Lymphocytes Absolute 0.9 0.8 - 4.1 K/uL [place] [address] [facility] Monocytes Absolute 1.0 0.0 - 1.0 K/uL [address] Eosinophils Absolute 0.0 0.0 - 0.7 K/uL [place] [address] [facility] Basophil Absolute 0.1 0.0 - 0.2 K/uL [address] Immature Granulocyte 0.12 (H) 0.00 - 0.06 [place] [address] [facility] Absolute K/uL Neutrophils Abs. 8,000 /uL [address] (Segs and Bands) Neutrophils Percent 79.8 % [address] Lymphocytes Percent 8.6 % [address] Monocytes Percent 9.6 % [address] Immature Granulocyte 1.2 % [address] Percent Eosinophils Percent 0.3 % [address] Basophil Percent 0.5 % [address] Nucleated RBC 0 /[address] Specimen Blood - Blood specimen (specimen) Performing Organization Address [facility] Phone Number [address] [address] MAGNESIUM (07/26/2020 6:28 AM CDT) Pathologist Sig nature Magnesium 2.5 (H) 1.8 - 2.4 mg/dL [address] Specimen Blood - Blood specimen (specimen) Performing Organization Address [facility] Phone Number [address] [address] BASIC METABOLIC PANEL (07/26/2020 6:28 AM CDT) Pathologist Sig nature Glucose 200 (H) 70 - 100 mg/dL [address] BUN 65 (H) 6 - 22 mg/dL [address] Creatinine 1.58 (H) 0.80 - 1.[address] mg/dL BUN/Creatinine Ratio 41.1 (H) 10.0 - 25.[address] Sodium 140 135 - 145 meq/L [address] Potassium 3.4 (L) 3.5 - 5.3 meq/L [address] Chloride 99 99 - 110 meq/L [address] CO2 30 (H) 20 - 29 meq/L [address] Anion Gap with K 14 6 - 20 meq/L [address] Calcium 8.4 (L) 8.5 - 10.[address] mg/dL Age [address] eGFR Non- 42 (L) >=[address] Armenian mL/min/1.73m2 eGFR 51 (L) >=[address] mL/min/1.73m2 Specimen Blood - Blood specimen (specimen) Performing Organization Address [facility] Phone Number [address] [place] [address] GLUCOSE BY METER, POCT (07/26/2020 5:40 AM CDT) Pathologist Sig nature Glucose POC 185 (H) 70 - 99 mg/dL [facility] POINT OF CARE TESTING Specimen Blood - Blood specimen (specimen) Performing Organization Address [facility] Phone Number [facility] POINT OF [address] [place] [address] CARE TESTING GLUCOSE BY METER, POCT (07/25/2020 8:46 PM CDT) Pathologist Sig nature Glucose POC 204 (H) 70 - 99 mg/dL [facility] POINT OF CARE TESTING Specimen Blood - Blood specimen (specimen) Performing Organization Address [facility] Phone Number [facility] POINT OF [address] [place] [phone] CARE TESTING GLUCOSE BY METER, POCT (07/25/2020 4:54 PM CDT) Pathologist Sig nature Glucose POC 285 (H) 70 - 99 mg/dL [facility] POINT OF CARE TESTING Specimen Blood - Blood specimen (specimen) Performing Organization Address [facility] Phone Number [facility] POINT OF [address] [place] [address] [place] [address] CARE TESTING GLUCOSE BY METER, POCT (07/25/2020 2:26 PM CDT) Pathologist Sig nature Glucose POC 372 (H) 70 - 99 mg/dL [facility] POINT OF CARE TESTING Specimen Blood - Blood specimen (specimen) Performing Organization Address [facility] Phone Number [facility] POINT OF [address] [place] [address] CARE TESTING GLUCOSE BY METER, POCT (07/25/2020 11:00 AM CDT) Pathologist Sig [facility] Glucose POC 386 (H) 70 - 99 mg/dL [facility] O POINT OF CARE TESTING Specimen Blood - Blood specimen (specimen) Performing Organization Address [facility] Phone Number [facility] POINT OF [address] [place] [address] CARE TESTING COMPLETE BLOOD COUNT WITHOUT DIFFERENTIAL (07/25/2020 10:27 AM CDT) Pathologist Sig [facility] WBC 11.7 (H) 4.0 - 11.0 K/uL [address] RBC 4.18 (L) 4.40 - 5.80 M/uL [address] Hemoglobin 13.0 (L) 13.5 - 17.5 g/dL [address] Hematocrit 38.9 (L) 40.0 - 50.0 % [address] MCV 93.1 80.0 - 98.[address] MCH 31.1 25.5 - 34.[address] MCHC 33.4 31.5 - 36.5 g/dL [address] RDW-CV 13.4 11.5 - 15.5 % [address] RDW-SD 45.8 35.5 - 50.[address] Platelet Count 210 140 - 400 K/uL [address] MPV 10.7 8.5 - 12.[address] Specimen Blood - Blood specimen (specimen) Performing Organization Address [facility] Phone Number [place] [address] [facility] [address] [place] [address], [place] [address] PHOSPHORUS (07/25/2020 10:27 AM CDT) Pathologist Sig nature Phosphorus 3.9 2.5 - 4.5 mg/dL [address] Specimen Blood - Blood specimen (specimen) Performing Organization Address [facility] Phone Number [address] [place] [address], [place] [address] MAGNESIUM (07/25/2020 10:27 AM CDT) Pathologist Sig nature Magnesium 2.4 1.8 - 2.4 mg/dL [address] Specimen Blood - Blood specimen (specimen) Performing Organization Address [facility] Phone Number [address] [place] [address] BASIC METABOLIC PANEL (07/25/2020 10:27 AM CDT) Pathologist Sig nature Glucose 446 (HH) 70 - 100 mg/dL [address] BUN 63 (H) 6 - 22 mg/dL [address] Creatinine 1.81 (H) 0.80 - 1.[address] mg/dL BUN/Creatinine Ratio 34.8 (H) 10.0 - 25.[address] Sodium 137 135 - 145 meq/L [address] Potassium 3.2 (L) 3.5 - 5.3 meq/L [address] Chloride 97 (L) 99 - 110 meq/L [address] CO2 29 20 - 29 meq/L [address] Anion Gap with K 14 6 - 20 meq/L [address] Calcium 8.4 (L) 8.5 - 10.[address] mg/dL Age [address] eGFR Non- 36 (L) >=[address] Armenian mL/min/1.73m2 eGFR 44 (L) >=[address] mL/min/1.73m2 Specimen Blood - Blood specimen (specimen) Performing Organization Address [facility] Phone Number [address] [place] [address] GLUCOSE BY METER, POCT (07/25/2020 6:01 AM CDT) Pathologist Sig nature Glucose POC 282 (H) 70 - 99 mg/dL [facility] O POINT OF CARE TESTING Specimen Blood - Blood specimen (specimen) Performing Organization Address [facility] Phone Number [facility] POINT OF [address] [place] [address] CARE TESTING GLUCOSE BY METER, POCT (07/24/2020 8:47 PM CDT) Pathologist Sig nature Glucose POC 342 (H) 70 - 99 mg/dL [facility] POINT OF CARE TESTING Specimen Blood - Blood specimen (specimen) Performing Organization Address [facility] Phone Number [facility] POINT OF [address] [place] [address] CARE TESTING GLUCOSE BY METER, POCT (07/24/2020 4:58 PM CDT) Pathologist Sig nature Glucose POC 313 (H) 70 - 99 mg/dL [facility] POINT OF CARE TESTING Specimen Blood - Blood specimen (specimen) Performing Organization Address [facility] Phone Number [facility] POINT OF [address] [place] [address] CARE TESTING GLUCOSE BY METER, POCT (07/24/2020 11:51 AM CDT) Pathologist Sig nature Glucose POC 183 (H) 70 - 99 mg/dL [facility] POINT OF CARE TESTING Specimen Blood - Blood specimen (specimen) Performing Organization Address [facility] Phone Number [facility] OF [address] [place] [address] CARE TESTING COMPLETE BLOOD COUNT WITHOUT DIFFERENTIAL (07/24/2020 9:26 AM CDT) Pathologist Sig nature WBC 10.5 4.0 - 11.0 K/uL [address] RBC 4.29 (L) 4.40 - 5.80 M/uL [address] Hemoglobin 13.0 (L) 13.5 - 17.5 g/dL [address] Hematocrit 40.3 40.0 - 50.0 % [address] MCV 93.9 80.0 - 98.[address] MCH 30.3 25.5 - 34.[address] MCHC 32.3 31.5 - 36.5 g/dL [place] [address] [facility] RDW-CV 13.8 11.5 - 15.5 % [address] RDW-SD 47.8 35.5 - 50.[address] Platelet Count 204 140 - 400 K/uL [address] MPV 10.6 8.5 - 12.[address] Specimen Blood - Blood specimen (specimen) Performing Organization Address [facility] Phone Number [place] [address] [facility] [address] [place] [address], [place] [address] PHOSPHORUS (07/24/2020 9:26 AM CDT) Pathologist Sig nature Phosphorus 3.4 2.5 - 4.5 mg/dL [address] Specimen Blood - Blood specimen (specimen) Performing Organization Address [facility] Phone Number [place] [address] [place] [address], [place] [address] MAGNESIUM (07/24/2020 9:26 AM CDT) Pathologist Sig nature Magnesium 2.4 1.8 - 2.4 mg/dL [address] Specimen Blood - Blood specimen (specimen) Performing Organization Address [facility] Phone Number [address] [place] [address], [place] [address] BASIC METABOLIC PANEL (07/24/2020 9:26 AM CDT) Pathologist Sig nature Glucose 174 (H) 70 - 100 mg/dL [address] BUN 50 (H) 6 - 22 mg/dL [address] Creatinine 1.58 (H) 0.80 - 1.[address] mg/dL BUN/Creatinine Ratio 31.6 (H) 10.0 - 25.[address] Sodium 141 135 - 145 meq/L [address] Potassium 3.2 (L) 3.5 - 5.3 meq/L [address] Chloride 98 (L) 99 - 110 meq/L [address] CO2 32 (H) 20 - 29 meq/L [address] Anion Gap with K 14 6 - 20 meq/L [address] Calcium 8.6 8.5 - 10.5 [place] [address] [facility] mg/dL Age [address] eGFR Non- 42 (L) >=[address] [place] mL/min/1.73m2 eGFR 51 (L) >=[address] mL/min/1.73m2 Specimen Blood - Blood specimen (specimen) Performing Organization Address [facility] Phone Number [address] [place] [address], [place] [address] GLUCOSE BY METER, POCT (07/24/2020 5:40 AM CDT) Pathologist Sig nature Glucose POC 171 (H) 70 - 99 mg/dL [facility] O POINT OF CARE TESTING Specimen Blood - Blood specimen (specimen) Performing Organization Address City/[facility] Phone Number [facility] POINT [place] [address] [place] [address] CARE TESTING GLUCOSE BY METER, POCT (07/23/2020 9:07 PM CDT) Pathologist Sig nature Glucose POC 171 (H) 70 - 99 mg/dL [facility] O POINT OF CARE TESTING Specimen Blood - Blood specimen (specimen) Performing Organization Address [facility] Phone Number [facility] POINT [place] [address] [place] [address] CARE TESTING GLUCOSE BY METER, POCT (07/23/2020 5:27 PM CDT) Pathologist Sig nature Glucose POC 227 (H) 70 - 99 mg/dL [facility] O POINT OF CARE TESTING Specimen Blood - Blood specimen (specimen) Performing Organization Address [facility] Phone Number [facility] POINT OF [address] [place] [address], [place] [address] CARE TESTING ANKLE BRACHIAL INDEX YORDY (07/23/2020 3:32 PM CDT) Specimen Narrative Performed At This result has an attachment that is no t available. Name: Stephen Haddad : 1940 Date of Service: 07/23/2020 EXAM: US ANKLE BRACHIAL INDEX INDICATION: Right foot digit ulcers COMPARISON(S): None TECHNIQUE: Single level bi-directional waveforms, plet hysmography pressures, pulse volume recordings, and ankle brachial indices performed. FINDINGS: RIGHT: Brachial 124 mmHg [employer] >254 mmHg, triphasic: SAURABH: Non-compressible DPA >254 mmHg, triphasic: SAURABH: Non-compressible Digit 104 mmHg, DBI: 0.75 Ankle PVR Normal SAURABH Non-compressible LEFT: Brachial 139 mmHG [employer] >254 mmHg, biphasic: SAURABH: Non-compressible DPA 136 mmHg, biphasic: SAURABH: 0.98 Digit 95 mmHg, DBI: 0.68 Ankle PVR Moderate SAURABH 0.98 IMPRESSION: Right lower extremity demonstrates non-compressible ve ssels. Right toe brachial index is normal. 3. Left ankle brachial indices likely falsely eleva grace, with biphasic waveforms. 4. 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 XRAY FOOT MIN 3 VIEWS RT (07/23/2020 2:27 PM CDT) Specimen Narrative Performed At [facility] Patient Name: STEPHEN HADDAD Date of : 1940 Procedure: XRAY FOOT MIN 3 VIEWS RT Date of Service: 07/23/2020 EXAM: XRAY FOOT MIN 3 VIEWS RT INDICATION:2nd digit HISTORY: 79-year-old male patient. Bacteremia. The pat ient has preulcerative lesions on the second and fourth toes. COMPARISON(S): None Available FINDINGS: The bones are diffusely osteopenic. There is underlyin g vascular calcification that is shown. There is very prominent degenerative change in the mid foot region with generalized joint space narrowing and sclerosis and sp urring. 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 I do not see any aggressive bony destruction on the st udy that would suggest the patient has osteomyelitis. 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 I do not see any bony destruction on the study that wo uld suggest that there is either an inflammatory or erosi ve type arthritis. I see no bony destruction that would suggest the patie nt has osteomyelitis Finalized by: Mo Kapoor MD on 07/08 4:55 PM CDT Patient/Procedure Information: [facility] MRN/WEN: [id number] Order Number: [id number] Accession Number: [id number] Ordering Provider: ZARINA CHRISTIAN Authorizing Provider: ANGEL RINALDI Procedure Note Interface, Radiantres - 07/23/2020 4:57 PM CDT Patient Name: STEPHEN HADDAD Date of : 1940 Procedure: XRAY FOOT MIN 3 VIEWS RT Date of Service: 07/23/2020 EXAM: XRAY FOOT MIN 3 VIEWS RT INDICATION:2nd digit HISTORY: 79-year-old male patient. Bacte remia. The patient has preulcerative lesions on the second and fourth toes. COMPARISON(S): None Available FINDINGS: The bones are diffusely osteopenic. Ther e is underlying vascular calcification that is shown. There is very prominent degenerative seter nge in the midfoot region with generalized joint space narrowing and sclerosis and spurring. 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 I do not see any aggressive bony destruc tion on the study that would suggest the patient has osteomyelitis. 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 I do not see any bony destruction on the study that would suggest that there is either an inflammatory or erosive type arthritis. I see no bony destruction that would sug gest the patient has osteomyelitis Finalized by: Mo aKpoor MD on 07/08 4:55 PM CDT Patient/Procedure Information: [facility] MRN/WEN: [id number] Order Number: [id number] Accession Number: [id number] Ordering Provider: ZARINA CHRISTIAN Authorizing Provider: ANGEL RINALDI Performing Organization Address City/[facility]/Zipcode Phone Number [id number] GLUCOSE BY METER, POCT (07/23/2020 12:03 PM CDT) Pathologist Sig nature Glucose POC 206 (H) 70 - 99 mg/dL [facility] O POINT OF CARE TESTING Specimen Blood - Blood specimen (specimen) Performing Organization Address City/[facility]/Zipcode Phone Number [facility] POINT OF [address] [place] [address] CARE TESTING COMPLETE BLOOD COUNT WITHOUT DIFFERENTIAL (07/23/2020 6:48 AM CDT) Pathologist Sig nature WBC 14.7 (H) 4.0 - 11.0 K/uL [address] RBC 4.12 (L) 4.40 - 5.80 M/uL [address] Hemoglobin 12.9 (L) 13.5 - 17.5 g/dL [address] Hematocrit 38.8 (L) 40.0 - 50.0 % [address] MCV 94.2 80.0 - 98.[address] MCH 31.3 25.5 - 34.[address] MCHC 33.2 31.5 - 36.5 g/dL [address] RDW-CV 13.9 11.5 - 15.5 % [address] RDW-SD 48.0 35.5 - 50.[address] Platelet Count 176 140 - 400 K/uL [address] MPV 10.6 8.5 - 12.[address] Specimen Blood - Blood specimen (specimen) Performing Organization Address [facility] Phone Number [address] [address] PHOSPHORUS (07/23/2020 6:48 AM CDT) Pathologist Sig nature Phosphorus 4.1 2.5 - 4.5 mg/dL [address] Specimen Blood - Blood specimen (specimen) Performing Organization Address [facility] Phone Number [address] [address] MAGNESIUM (07/23/2020 6:48 AM CDT) Pathologist Sig nature Magnesium 2.2 1.8 - 2.4 mg/dL [address] Specimen Blood - Blood specimen (specimen) Performing Organization Address [facility] Phone Number [address] [address] BASIC METABOLIC PANEL (07/23/2020 6:48 AM CDT) Pathologist Sig nature Glucose 257 (H) 70 - 100 mg/dL [address] BUN 44 (H) 6 - 22 mg/dL [address] Creatinine 1.76 (H) 0.80 - 1.[address] mg/dL BUN/Creatinine Ratio 25.0 10.0 - 25.[address] Sodium 139 135 - 145 meq/L [address] Potassium 3.6 3.5 - 5.3 meq/L [address] Chloride 98 (L) 99 - 110 meq/L [address] CO2 32 (H) 20 - 29 meq/L [address] Anion Gap with K 13 6 - 20 meq/L [address] Calcium 8.4 (L) 8.5 - 10.[address] mg/dL Age 79 [facility] eGFR Non- 37 (L) >=[address] [place] mL/min/1.73m2 eGFR 45 (L) >=[address] mL/min/1.73m2 Specimen Blood - Blood specimen (specimen) Performing Organization Address [facility] Phone Number [address] [place] [address], [place] [address] GLUCOSE BY METER, POCT (07/23/2020 5:45 AM CDT) Pathologist Sig nature Glucose POC 262 (H) 70 - 99 mg/dL [facility] O POINT OF CARE TESTING Specimen Blood - Blood specimen (specimen) Performing Organization Address [facility] Phone Number [facility] POINT OF [address] [place] [address], [place] [address] CARE TESTING GLUCOSE BY METER, POCT (07/22/2020 9:49 PM CDT) Pathologist Sig nature Glucose POC 246 (H) 70 - 99 mg/dL [facility] O POINT OF CARE TESTING Specimen Blood - Blood specimen (specimen) Performing Organization Address [facility] Phone Number [facility] POINT OF [address] [place] [address], [place] [address] CARE TESTING VANCOMYCIN RANDOM (07/22/2020 8:48 PM CDT) Pathologist Sig nature Vancomycin Random 6.4 ug/mL [address] Specimen Blood - Blood specimen (specimen) Performing Organization Address [facility] Phone Number [address] [place] [address] XRAY HIP MIN 2 VIEWS RT (07/22/2020 8:15 PM CDT) Specimen Narrative Performed At [facility] Patient Name: STEPHEN HADDAD Date of : 1940 Procedure: XRAY HIP MIN 2 VIEWS RT Date of Service: 07/22/2020 EXAM: XRAY HIP MIN 2 VIEWS RT INDICATION: hip pain COMPARISON(S): 12/01/2015 FINDINGS/IMPRESSION: There are no acute fractures or d islocations. Mild joint space narrowing of the hip. The so ft tissues are unremarkable. Finalized by: Murphy Connolly MD on 2020 9:34 PM CDT Patient/Procedure Information: [facility] MRN/WEN: [id number] Order Number: [id number] Accession Number: [id number] Ordering Provider: RUTH ETIENNE Authorizing Provider: RUTH ETIENNE Procedure Note Interface, Radiantres - 07/22/2020 9:36 PM CDT Patient Name: STEPHEN HADDAD Date of : 1940 Procedure: XRAY HIP MIN 2 VIEWS RT Date of Service: 07/22/2020 EXAM: XRAY HIP MIN 2 VIEWS RT INDICATION: hip pain COMPARISON(S): 12/01/2015 FINDINGS/IMPRESSION: There are no acute fractures or dislocations. Mild joint space narrowing of the hip. The soft tissues are unremarkable. Finalized by: Murphy Connolly MD on 2020 9:34 PM CDT Patient/Procedure Information: [facility] MRN/WEN: [id number] Order Number: [id number] Accession Number: [id number] Ordering Provider: RUTH ETIENNE Authorizing Provider: RUTH ETIENNE Performing Organization Address City/State/Zipcode Phone Number [facility] GLUCOSE BY METER, POCT (07/22/2020 5:15 PM CDT) Pathologist Sig nature Glucose POC 212 (H) 70 - 99 mg/dL [facility] O POINT OF CARE TESTING Specimen Blood - Blood specimen (specimen) Performing Organization Address [facility]/Zipcode Phone Number [facility] POINT OF [address] [place] [address] CARE TESTING LAB ONLY-COMPLETE BLOOD COUNT WITH DIFFERENTIAL (07/22/2020 11:21 AM CDT) Pathologist Sig nature WBC 12.5 (H) 4.0 - 11.0 K/uL [address] RBC 4.24 (L) 4.40 - 5.80 [place] [address] [facility] M/uL Hemoglobin 13.1 (L) 13.5 - 17.[address] g/dL Hematocrit 39.6 (L) 40.0 - 50.0 % [address] MCV 93.4 80.0 - 98.0 fL [facility] MCH 30.9 25.5 - 34.[address] MCHC 33.1 31.5 - 36.[address] g/dL RDW-CV 14.1 11.5 - 15.5 % [address] RDW-SD 48.2 35.5 - 50.[address] Platelet Count 167 140 - 400 K/uL [address] MPV 10.4 8.5 - 12.[address] Seg Neut Absolute 10.4 (H) 1.8 - 8.0 K/uL [address] Lymphocytes Absolute 0.7 (L) 0.8 - 4.1 K/uL [place] [address] [facility] Monocytes Absolute 0.9 0.0 - 1.0 K/uL [address] Eosinophils Absolute 0.4 0.0 - 0.7 K/uL [place] [address] [facility] Basophil Absolute 0.1 0.0 - 0.2 K/uL [address] Immature Granulocyte 0.08 (H) 0.00 - 0.06 [place] [address] CLIN[facility] Absolute K/uL Neutrophils Abs. 10,400 /uL [address] (Segs and Bands) Neutrophils Percent 83.2 % [address] Lymphocytes Percent 5.4 % [address] Monocytes Percent 6.9 % [address] Immature Granulocyte 0.6 % [address] Percent Eosinophils Percent 3.4 % [address] Basophil Percent 0.5 % [place] [address] [facility] Nucleated RBC 0 /[address] Specimen Blood - Blood specimen (specimen) Performing Organization Address [facility] Phone Number [place] [address] [facility] [address] [place] [address] TROPONIN I (07/22/2020 11:21 AM CDT) Pathologist [facility] Troponin I 0.260 (H) 0.000 - 0.028 ng/mL [address] Specimen Blood - Blood specimen (specimen) Performing Organization Address [facility] Phone Number [address] [place] [address], [place] [address] HEPATIC FUNCTION PANEL (07/22/2020 11:21 AM CDT) [facility] Alkaline Phosphatase 95 30 - 150 U/L [address] AST - SGOT 50 (H) 0 - 35 U/L [address] ALT - SGPT 35 0 - 55 U/L [address] Bilirubin Total 1.1 0.2 - 1.2 mg/dL [address] Bilirubin Indirect 0.7 0.0 - 0.8 mg/dL [address] Bilirubin Direct 0.4 0.0 - 0.4 mg/dL [address] Albumin 3.0 (L) 3.5 - 5.0 g/dL [address] Protein Total 5.3 (L) 6.0 - 8.2 g/dL [address] Specimen Blood - Blood specimen (specimen) Performing Organization Address [facility] Phone Number [address] [place] [address] BASIC METABOLIC PANEL (07/22/2020 11:21 AM CDT) [facility] Glucose 302 (H) 70 - 100 mg/dL [address] BUN 38 (H) 6 - 22 mg/dL [address] Creatinine 1.66 (H) 0.80 - 1.[address] mg/dL BUN/Creatinine Ratio 22.9 10.0 - 25.[address] Sodium 135 135 - 145 meq/L [address] Potassium 3.3 (L) 3.5 - 5.3 meq/L [address] Chloride 98 (L) 99 - 110 meq/L [address] CO2 26 20 - 29 meq/L [address] Anion Gap with K 14 6 - 20 meq/L [address] Calcium 8.1 (L) 8.5 - 10.[address] mg/dL Age [address] eGFR Non- 40 (L) >=[address] Armenian mL/min/1.73m2 eGFR 48 (L) >=[address] mL/min/1.73m2 Specimen Blood - Blood specimen (specimen) Performing Organization Address [facility]/State/Zipcode Phone Number [facility] [address] [place] [address] GLUCOSE BY METER, POCT (07/22/2020 11:18 AM CDT) Pathologist Sig nature Glucose POC 294 (H) 70 - 99 mg/dL [facility] POINT OF CARE TESTING Specimen Blood - Blood specimen (specimen) Performing Organization Address [facility]/Zipcode Phone Number [facility] POINT [place] [address] [place] [address] CARE TESTING GLUCOSE BY METER, POCT (07/22/2020 7:02 AM CDT) Pathologist Sig nature Glucose POC 152 (H) 70 - 99 mg/dL [facility] O POINT OF CARE TESTING Specimen Blood - Blood specimen (specimen) Performing Organization Address [facility] Phone Number [facility] POINT [place] [address] [place] [address] HEAD WITHOUT CONTRAST (07/22/2020 6:30 AM CDT)Only the most recent of2 resultswithin the time period is included. Specimen Narrative Performed At [facility] Patient Name: STEPHEN HADDAD Date of : 1940 Procedure: CT HEAD WITHOUT CONTRAST Date of Service: 07/22/2020 EXAM: CT HEAD WITHOUT CONTRAST INDICATION: Cerebral hemorrhage suspected, RT temporal possible traumatic SAH larger TECHNIQUE: CT of the brain performed wit hout IV contrast. COMPARISON(S): 07/21/2020 FINDINGS: Similar appearance of punctate focus of high attenuati on overlying the right temporal lobe (axial image 24 of 49) there are n o new areas of abnormal high attenuation identified. No acute large v ascular distribution infarction, midline shift, mass lesion or herniation. There is patchy and confluent low-attenuation in the periven tricular white matter likely representing sequela of chronic small ve ssel ischemic disease. Generalized parenchymal volume loss. Ventri cles, sulci and basilar cisterns are symmetric. No acute findings iden tified in the orbits, sinuses or mastoid air cells. IMPRESSION: 1. Stable punctate focus of high attenuation in the ri ght lateral temporal lobe suspicious for a very smal l subarachnoid hemorrhage. 2. Stable moderate to severe chronic small vessel isch emic disease changes, generalized parenchymal volume loss. Finalized by: Gama Luz, MD on 2020 6:36 AM CDT Patient/Procedure Information: [facility] MRN/WEN: [id number] Order Number: [id number] Accession Number: [id number] Ordering Provider: KALEN WALLACE Authorizing Provider: KALEN WALLACE Procedure Note Interface, Radiantres - 07/22/2020 6:38 AM CDT Patient Name: STEPHEN HADDAD Date of : 1940 Procedure: CT HEAD WITHOUT CONTRAST Date of Service: 07/22/2020 EXAM: CT HEAD WITHOUT CONTRAST INDICATION: Cerebral hemorrhage suspecte d, RT temporal possible traumatic SAH larger TECHNIQUE: CT of the brain performed wit hout IV contrast. COMPARISON(S): 07/21/2020 FINDINGS: Similar appearance of punctate focus of high attenuation overlying the right temporal lobe (axial image 24 of 49) there are no new areas of abnormal high attenuation identified. No acute large vascular distribution infarction, midline shift, mass lesion o r herniation. There is patchy and confluent low-attenuation in the periventricular white matter likely representing sequela of chronic small vessel ischemic disease. Generalized parenchymal volume loss. Doug tricles, sulci and basilar cisterns are symmetric. No acute findings identified in the orbits, sinuses or mastoid air cells. IMPRESSION: 1. Stable punctate focus of high attenua tion in the right lateral temporal lobe suspicious for a very small subarachnoid hemorrhage. 2. Stable moderate to severe chronic sma ll vessel ischemic disease changes, generalized parenchymal volume loss. Finalized by: Gama Escobar MD on 2020 6:36 AM CDT Patient/Procedure Information: [facility] MRN/WEN: [id number] Order Number: [id number] Accession Number: [id number] Ordering Provider: KALEN WALLACE Authorizing Provider: KALEN WALLACE Performing Organization Address City/State/Zipcode Phone Number [facility] CULTURE BACTERIAL, URINE (07/22/2020 3:08 AM CDT) Pathologist [facility] Culture Result No growth [facility] Specimen Urine - Urine specimen obtained via indw elling urinary catheter (specimen) Performing Organization Address City/State/Zipcode Phone Number [facility] [address] [place] [address], [place] [address] LABORATORY [address] LAB ONLY-URINE MICROSCOPIC REFLEX (07/22/2020 3:08 AM CDT) WBC Urine 6-10 /hpf (A) Negative, 0-5 [place]- /hpf CLINIC RBC Urine >30 /hpf (A) Negative, 0-2 [place] [facility] /hpf CLINIC Squamous Moderate (21-50) Negative, Occ [place] [address] Epithelial Cells /lpf (A) (0-10) /lpf, Few CLINIC (11-20) /lpf Bacteria Negative Negative [address] Hyaline Cast 6-10 /lpf (A) 0-2 /lpf [address] Granular Cast 0-2 /lpf (A) Negative [address] Specimen Urine - Urine specimen obtained via indw elling urinary catheter (specimen) Narrative Performed At Urine Culture Reflexed [address] The presence of moderate or many squamous epithelial c ells is suggestive of possible contamination during collection . Performing Organization Address City/State/Zipcode Phone Number [address] [place] [address], [place] [address] URINE DIP, REFLEX TO MICROSCOPIC, REFLEX TO CULTURE (07/22/2020 3:08 AM CDT) Color Urine Straw Esequiel, Dark [place] [address] Yellow, Straw, CLINIC Yellow, Colorless Clarity Urine Clear Clear [address] Glucose Urine 50 mg/dL (A) Negative [address] Bilirubin Urine Negative Negative [address] Ketones Urine Negative Negative, 5 [place] [address] mg/dL, 10 mg/dL CLINIC Specific [place] 1.012 1.002 - 1.[address] Blood Urine Moderate (2+) Negative [place] [address] (A) CLINIC PH Urine 5.5 5.0, 5.5, 6.0, [facility]- 6.5, 7.0, 7.5, CLINIC 8.0 Protein Urine >= 300 mg/dL Negative [place] [address] (A) CLINIC Urobilinogen < 2 mg/dL < 2 mg/dL [address] Nitrite Negative Negative [address] Leukocyte Esterase Trace (A) Negative [place] [address] Urine CLINIC Specimen Urine - Urine specimen obtained via indw elling urinary catheter (specimen) Narrative Performed At Microscopic Exam Reflexed [place] [address] CLINIC Performing Organization Address [facility] Phone Number [address] [place] [address], [place] [address] GLUCOSE BY METER, POCT (07/21/2020 9:02 PM CDT) Pathologist Sig nature Glucose POC 186 (H) 70 - 99 mg/dL [facility] POINT OF CARE TESTING Specimen Blood - Blood specimen (specimen) Performing Organization Address [facility] Phone Number [facility] POINT OF [address] [place] [address], [place] [address] CARE TESTING CULTURE, BLOOD (07/21/2020 5:39 PM CDT)Only the most recent of2 resultswithin the time period is included. Pathologist Sig nature Culture Result No growth at 5 [facility] days LABORATORY Specimen Blood - Blood specimen (specimen) Narrative Performed At [facility] Peripheral draw Performing [facility] Phone Number [facility] [address] [place] [address] LABORATORY [address] GLUCOSE BY METER, POCT (07/21/2020 5:21 PM CDT) Pathologist Sig nature Glucose POC 147 (H) 70 - 99 mg/dL [facility] POINT OF CARE TESTING Specimen Blood - Blood specimen (specimen) Performing Organization Address [facility] Phone Number [facility] POINT OF [address] [place] [address], [place] [address] CARE TESTING STREP PNEUMONIAE DIRECT ANTIGEN, URINE (07/21/2020 4:11 PM CDT) Strep pneumoniae Presumptive Presumptive [facility] Urine Antigen NegativeComment: [facility] Presumptive LABORATORY negative for Streptococcus pneumoniae antigen in urine, suggesting no current or recent pneumococcal infection. Infection due to Streptococcus pneumoniae cannot be ruled out since the antigen present in the urine may be below the detection limit of the test. Specimen Urine - Urine specimen (specimen) Performing Organization Address [facility] Phone Number [facility] [address] [place] [address] LABORATORY [address] LEGIONELLA ANTIGEN, URINE (07/21/2020 4:11 PM CDT) [facility] Legionella Presumptive Presumptive [facility] Antigen Urine NegativeComment: [facility] LABORATORY negative for L. pneumophila serogroup 1 antigen in urine, suggesting no current or recent infection. Infection due to Legionella cannot be ruled out since other serogroups and species may cause disease, antigen may not be present in urine in early infection, and the antigen present in the urine may be below the detection limit of the test. Consider Screen for Single Pathogen Culture Legionella (Sputum), to isolate additional Legionella serotypes if clinically indicated. Specimen Urine - Urine specimen (specimen) Performing Organization Address [facility] Phone Number [facility] [address] [place] [address] LABORATORY [address] MRSA NASAL SCREEN, BARB (07/21/2020 4:11 PM CDT) [facility] MRSA by NAD, Nasal Not Detected Not Detected [facility] Specimen Swab - Specimen from nasal sinus (specim en) Narrative Performed At MRSA DNA not detected. [facility] This test was performed by polymerase chain reaction (PCR) on the GeneXpert instrument. Performing [facility] [place] Address [facility] Phone Number [facility] [address] [place] [address] [address] TROPONIN I (07/21/2020 3:24 PM CDT) Pathologist Sig [facility] Troponin I 0.317 (H) 0.000 - 0.028 ng/mL [address] Specimen Blood - Blood specimen (specimen) Performing Organization Address [facility] Phone Number [place] [address] [place] [address] [place] [address] TROPONIN I (07/21/2020 12:40 PM CDT) Pathologist Sig [facility] Troponin I 0.338 (H) 0.000 - 0.028 ng/mL [address] Specimen Blood - Blood specimen (specimen) Performing [facility] Phone Number [place] [address] [place] [address], [place] [address] GLUCOSE BY METER, POCT (07/21/2020 11:10 AM CDT) Pathologist Sig nature Glucose POC 138 (H) 70 - 99 mg/dL [facility] O POINT OF CARE TESTING Specimen Blood - Blood specimen (specimen) Performing Organization Address City/State/Zipcode Phone Number [facility] POINT OF [address] [place] [address] CARE TESTING ECHO ADULT COMPLETE (07/21/2020 10:17 AM CDT) Specimen Narrative Performed At This result has an attachment that is no t available. [facility] Patient: STEPHEN HADDAD MR#: [id number] Exam Date: 07/21/2020 [facility] [address] [place] [address] BP: 154/77 mmHg HR: 55 bpm : 1940 Exam Location: Bedside Height: 78.00 "(198.1 cm) Age: 79 year(s) Patient Room: 644 Weight: 315 lbs.(142.88 kg) Gender: Male Patient Status: Inpatient BSA: 2.74 m2 Cell Tender: KORY LANDAVERDE RD CS Reading Physician: MEEK LANDRY MD Ordering Physician: MITA KUMAR MD Procedure Indication(s): NSTEMI, CHF ex Examination: TTE Complete 2D(m-mode), Complete Spectral Doppler, Color Doppler Image Quality: Technically Difficult Exam Comments Patient short of breath and unable to hold breath to optimize images. Conclusions Left Ventricle: Normal left ventricular systolic functio n. The ejection fraction is visually estimated to be 60 %. Unable to assess left ventricular diastolic function due to abnormal rhythm. Left Atrium: Dilated left atrium. Aortic Valve: Trivial aortic regurgitation. Very mild aortic stenosis,visually somewhat worse but calculated cardiac ouput is normal.. Aortic valve mean gradient is 10 mmHg. Mitral Valve: There is moderate mitral annular calcifi cation. Mild mitral stenosis. Mitral valve mean gradient is 4 mmHg. Visually appears worse and may need further evaluations. Right Ventricle: Normal right ventricular systolic functi on. Normal right ventricular wall thickness. Pulmonary artery systolic pressure is measured at 46 mmHg. Pulmonary Artery: Mild pulmonary artery hypertension. Tricuspid Valve: Mild tricuspid regurgitation. IVC: Dilated IVC with normal respirophasic changes. Pericardium: No significant pericardial effusion. Comparison Study Comparison Date: 04/23/2019 Comparison Study: Transthoracic Echocardiogram There was no significant change from prior echo Findings Left Ventricle: Upper limits of normal left ventricular size. Increased left ventricular wall thickness. Normal left ventricular systolic function. The ejection fraction is visually estima grace to be 60 %. There are no left ventricular regional wall motion abnormalities. Unable to assess left ventricular diastolic function due to a bnormal rhythm. Left Atrium: Dilated left atrium. Aortic Valve: The aortic valve is tricuspid. Mild aort ic cuspal thickening. Mild aortic cuspal calcification. Reduced aortic cuspal mobility. Trivial aortic regurgitation. Very mild aortic stenosis,visually somewhat worse but calculated cardiac ouput is normal.. Aortic valve mean gradient is 10 mmHg. Aorta: The sinus of valsalva is normal in size measuring 44.0 mm. There is dilatation of the ascending aorta measuring 40.0 mm. Mitral Valve: Mild mitral leaflet calcification. There is restricted mobility of both the anterior and posterior mitral leaflets. There is moderate mitral annular calcification. Trivial mi tral regurgitation. Mild mitral stenosis. Mitral valve mean gradient is 4 mmHg. Visually appears worse and may need further evaluations. IAS: No gross evidence of shunt flow seen; ho librado the possibility of a PFO cannot be completely ruled out. Right Ventricle: Normal right ventricular size. Normal ri ght ventricular systolic function. Normal right ventricular wall thickness. Pulmonary artery systolic pressure is measured at 46 mmHg. TAPSE measures 22 mm. Tricuspid valve lateral annulus peak systolic velocity is 13.2 cm/sec. Pulmonary Artery: Mild pulmonary artery hypertension. Pulmonary Vein: The pulmonary venous flow demonstrates a blunted S-wav e. Right Atrium: Dilated right atrium by visual assessment. Tricuspid Valve: Normal tricuspid valve structure. Mild t ricuspid regurgitation. No significant tricuspid stenosis. Pulmonic Valve: Pulmonary valve not well visualized. IVC: Dilated IVC with normal respirophasic changes. Pericardium: No significant pericardial effusion. The re is pericardial fat. No pleural effusion. Exam Details Image Quality: Technically D ifficult Measurements Left Ventricle Aortic Valve Label Value Normal Value Label Value Normal Value LVDd, 2D 56.8 mm LVOT Vmax 127 cm/s LVDs, 2D 39.4 mm AV Vmax 220 cm/s IVSd, 2D 12.8 mm LVOTd 26 mm LVPWd, 2D 12.4 mm LVOT VTI 24.9 cm FS, 2D 31 % LVOT PGmax 6 mmHg LVEDV, 2D 159 ml AV Vmean 150 cm/s LVESV, 2D 68 ml AV VTI 42.7 cm Cardiac Output 7.26 L/min AV PGmax 19 mmHg Cardiac Index 2.65 MIKE (Vmax) 3.1 cm-sq L/min/m-sq AV Vmax, Caliper 220 cm/s LVEDVI, 2D 58 ml/m2 MIKE (VTI) 3.1 cm-sq LVESVI, 2D 24.8 ml/ m2 Obstructive Index 0.58 Stroke Index 48.18 (Vmax) ml/m-sq Obstruction Index 0.58 Right Ventricle (VTI) Label Value Normal Value AV PGmean 10 mmHg TAPSE 22 mm Mitral Valve S' Tissue Doppler 13.2 Label Value Normal Value cm/sec MV E Vmax 177 cm/s Left Atrium MV E/E' lateral 21.2 Label Value Normal Value MV E/E' septal 31.1 LADs Long. 90 mm MV Dec Time 420 ms LA Volume Index 71.9 ml/m- sq MV E' septal 5.7 cm/s Aorta MV VTI 69.2 cm Label Value Normal Value MVA (VTI) 1.9 cm-sq Ao Asc 40 mm MV PGmax 14 mmHg Ao Sinus, 2D 44 mm MV E' lateral 8.4 cm/s Great Vessels MV PGmean 4 mmHg Label Value Normal Value Tricuspid Valve PVein S 33 cm/ s Label Value Normal Value PVein D 61 cm/ s TR Vmax 290 cm/s S/D Ratio 0.5 TR Pmax 38 mmHg Heart Rate RA Pressure 8 mmHg Label Value Normal Value RVSP 46 mmHg Heart Rate 55 bpm Pulmonic Valve Label Value No rmal Value PV Vmax 106 cm/s PV PGmax 4 mmHg Procedure Note Interface, Inc Results No Pull Forward - 07/21/2020 11:40 AM CDT Patient: STEPHEN HADDAD MR#: [id number] Exam Date: 07/21/2020 [facility] [address] [place] [address] BP: 154/77 mmHg HR: 55 bpm : 1940 Exa m Location: Bedside Height: 78.00 "(198.1 cm) Age: 79 year(s) Pat ient Room: 644 Weight: 315 lbs.(142.88 kg) Gender: Male Pat ient Status: Inpatient BSA: 2.74 m2 Cell Tender: KORY GOODSNO ANDREA Reading Physician: DORY LANDRY MD Ordering Physician: MITA NJ MD Procedure Indication(s): NSTEMI, CHF ex Examination: TTE Com plete 2D(m-mode), Complete Spectral Doppler, Color Doppler Image Quality: Technic ally Difficult Exam Comments Patient short of breath and unable to hold breath to optimize images. Conclusions Left Ventricle: Normal left ventricular systolic functio n. The ejection fraction is visually estimated to be 60 %. Unable to assess left ventricular diastolic function due to abnormal rhyth m. Left Atrium: Dilated left atrium. Aortic Valve: Trivial aortic regurgitation. Very mild aortic stenosis,visually somewhat worse but calculated cardiac ouput is normal.. Aortic valve mean gradient is 10 mmHg. Mitral Valve: There is moderate mitral annular calcifi cation. Mild mitral stenosis. Mitral valve mean gradient is 4 mmHg. Visually appears worse and may need further evaluations. Right Ventricle: Normal right ventricular systolic functi on. Normal right ventricular wall thickness. Pulmonary artery systolic pressure is measured at 46 mmHg. Pulmonary Artery: Mild pulmonary artery hypertension. Tricuspid Valve: Mild tricuspid regurgitation. IVC: Dilated IVC with normal respirophasic ch anges. Pericardium: No significant pericardial effusion. Comparison Study Comparison Date: 04/23/2019 Comparison Study: Transthoracic Echocard iogram There was no significant change from carlo or echo Findings Left Ventricle: Upper limits of normal left ventricular size. Increased left ventricular wall thickness. Normal left ventricular systolic function. The ejection fraction is visually estima grace to be 60 %. There are no left ventricular regional wall motion abnormalities. Unable to assess left ventricular diastolic fun ction due to abnormal rhythm. Left Atrium: Dilated left atrium. Aortic Valve: The aortic valve is tricuspid. Mild aort ic cuspal thickening. Mild aortic cuspal calcification. Reduced aortic cuspal mobility. Trivial aortic regurgitation. Very mild aortic stenosis,visually somewhat worse but calculated cardiac ouput is normal.. Aortic valve mean gradient is 10 mmHg. Aorta: The sinus of valsalva is normal in size measuring 44.0 mm. There is dilatation of the ascending aorta measuring 40.0 mm. Mitral Valve: Mild mitral leaflet calcification. There is restricted mobility of both the anterior and posterior mitral leaflets. There is moderate mitral annular calcification. Trivial mi tral regurgitation. Mild mitral stenosis. Mitral valve mean gradient is 4 mmHg. Visually appears worse and may need further eval uations. IAS: No gross evidence of shunt flow seen; ho wever the possibility of a PFO cannot be completely ruled out. Right Ventricle: Normal right ventricular size. Normal ri ght ventricular systolic function. Normal right ventricular wall thickness. Pulmonary artery systolic pressure is measured at 46 mmHg. TAPSE measures 22 mm. Tricuspid valve lateral annulus peak systolic velocity is 13.2 cm/sec. Pulmonary Artery: Mild pulmonary artery hypertension. Pulmonary Vein: The pulmonary venous flow demonstrates a blunted S-wave. Right Atrium: Dilated right atrium by visual assessmen t. Tricuspid Valve: Normal tricuspid valve structure. Mild t ricuspid regurgitation. No significant tricuspid stenosis. Pulmonic Valve: Pulmonary valve not well visualized. IVC: Dilated IVC with normal respirophasic ch anges. Pericardium: No significant pericardial effusion. The re is pericardial fat. No pleural effusion. Exam Details Image Quality: Technica llabel Difficult Measurements Left Ventricle Aortic Valve Label Value No rmal Value Label Value Normal Value LVDd, 2D 56.8 mm LVOT Vmax 127 cm/s LVDs, 2D 39.4 mm AV Vmax 220 cm/s IVSd, 2D 12.8 mm LVOTd 26 mm LVPWd, 2D 12.4 mm LVOT VTI 24.9 cm FS, 2D 31 % LVOT PGmax 6 mmHg LVEDV, 2D 159 ml AV Vmean 150 cm/s LVESV, 2D 68 ml AV VTI 42.7 cm Cardiac Output 7.26 L/min AV PGmax 19 mmHg Cardiac Index 2.65 MIKE (Vmax) 3.1 cm-sq L/min/m-sq A V Vmax, Caliper 220 cm/s LVEDVI, 2D 58 ml/m2 MIKE (VTI) 3.1 cm-sq LVESVI, 2D 24.8 ml/m2 Obstructive Index 0.58 Stroke Index 48.18 (Vmax) ml/m-sq Obstruction Index 0.58 Right Ventricle (VTI) Label Value No rmal Value AV PGmean 10 mmHg TAPSE 22 mm Mitral Valve S' Tissue Doppler 13.2 Label Value Normal Value cm/sec MV E Vmax 177 cm/s Left Atrium MV E/E' lateral 21.2 Label Value No rmal Value MV E/E' septal 31.1 LADs Long. 90 mm MV Dec Time 420 ms LA Volume Index 71.9 ml/m-sq MV E' septal 5.7 cm/s Aorta MV VTI 69.2 cm Label Value No rmal Value MVA (VTI) 1.9 cm-sq Ao Asc 40 mm MV PGmax 14 mmHg Ao Sinus, 2D 44 mm MV E' lateral 8.4 cm/s Great Vessels MV PGmean 4 mmHg Label Value No rmal Value Tricuspid Valve PVein S 33 cm/s Label Value Normal Value PVein D 61 cm/s TR Vmax 290 cm/s S/D Ratio 0.5 TR Pmax 38 mmHg Heart Rate RA Pressure 8 mmHg Label Value No rmal Value RVSP 46 mmHg Heart Rate 55 bpm Pulmonic Valve Label Value No rmal Value PV Vmax 106 cm/s PV PGmax 4 mmHg Performing Organization Address [facility] Phone Number [facility] [place], [place] GLUCOSE BY METER, POCT (07/21/2020 9:12 AM CDT) [facility] Glucose POC 152 (H) 70 - 99 mg/dL [facility] POINT OF CARE TESTING Specimen Blood - Blood specimen (specimen) Performing Organization Address [facility] Phone Number [facility] POINT OF [address] [place] [address], [place] [address] CARE TESTING MAGNESIUM (07/21/2020 8:30 AM CDT) [facility] Magnesium 2.0 1.8 - 2.4 mg/dL [address] Specimen Blood - Blood specimen (specimen) Performing Organization Address [facility] Phone Number [address] [place] [address], [place] [address] LAB ONLY-COMPLETE BLOOD COUNT WITH DIFFERENTIAL (07/21/2020 8:30 AM CDT) [facility] WBC 22.6 (H) 4.0 - 11.0 K/uL [address] RBC 4.18 (L) 4.40 - 5.[address] M/uL Hemoglobin 13.0 (L) 13.5 - 17.[address] g/dL Hematocrit 39.0 (L) 40.0 - 50.0 % [address] MCV 93.3 80.0 - 98.[address] MCH 31.1 25.5 - 34.[address] MCHC 33.3 31.5 - 36.[address] g/dL RDW-CV 13.9 11.5 - 15.5 % [address] RDW-SD 47.5 35.5 - 50.[address] Platelet Count 184 140 - 400 K/uL [address] MPV 10.1 8.5 - 12.[address] Seg Neut Absolute 20.5 (H) 1.8 - 8.0 K/uL [address] Lymphocytes Absolute 0.4 (L) 0.8 - 4.1 K/uL [place] [address] [facility] C Monocytes Absolute 1.4 (H) 0.0 - 1.0 K/uL [address] Eosinophils Absolute 0.0 0.0 - 0.7 K/uL [place] [address] [facility] C Basophil Absolute 0.1 0.0 - 0.2 K/uL [address] Immature Granulocyte 0.28 (H) 0.00 - 0.[address] Absolute K/uL Neutrophils Abs. 20,500 /uL [address] (Segs and Bands) Neutrophils Percent 90.5 % [address] Lymphocytes Percent 1.9 % [address] Monocytes Percent 6.1 % [address] Immature Granulocyte 1.2 % [address] Percent Eosinophils Percent 0.0 % [address] Basophil Percent 0.3 % [address] Nucleated RBC 0 /[address] Specimen Blood - Blood specimen (specimen) Performing Organization Address City/State/Zipcode Phone Number [address] [place] [address] C-REACTIVE PROTEIN (INFLAMMATION) (07/21/2020 8:30 AM CDT) Pathologist Sig nature CRP 27.9 (H) 0.0 - 8.0 mg/L [address] Specimen Blood - Blood specimen (specimen) Performing Organization Address [facility] Phone Number [address] [place] [address] D-DIMER QUANTITATIVE (07/21/2020 8:30 AM CDT) Pathologist Sig [facility] D-Dimer 0.57 (H) <=0.49 ug/mL FEU [address] Specimen Blood - Blood specimen (specimen) Narrative Performed At [address] If D-Dimer is less than 0.50 ug/mL FEU, PE or DVT is not likely. Increases in D-Dimer concentration observed with throm boembolic events can be variable due to localization, size, and age of the thrombus. Therefore, a thromboembolic event cannot be diagnosed with certainty on the basis of the reference range, and thrombosis and/o r embolism is not completely excluded by a normal value. D-Dimer may also be elevated for a variety of disorders including: Advance d age, , coronary disease, cancer, liver disease, infection, in flammation, hematoma, DIC, trauma, post-surgery, diabetes, thrombo lytic therapy, stress, and generalized hospitalization. D-Dimer levels may be decreased in patients on anticoagulant t herapy. Performing Organization Address [facility] Phone Number [address] [place] [address] PROCALCITONIN (07/21/2020 8:30 AM CDT) Pathologist [facility] Procalcitonin 0.48 (H) <0.07 ng/mL [address] Specimen Blood - Blood specimen (specimen) Narrative Performed At Suspected Lower Respiratory Tract Infect ion: [address] 0.1-0.25: Low risk for bacterial infection; Antibiotic s discouraged. > 0.25: Increased likelihood for bacterial infection; Antibiotics encouraged. Suspected Sepsis: 0.1-0.5: Low likelihood for sepsis; Anti biotics discouraged. > 0.5: Increased Likelihood for sepsis; Antibiotics encouraged. > 2.0: High risk of sepsis/septic shock; Antibiotics s trongly encouraged. Decisions on antibiotic use should not be based solely on procalcitonin levels. If antibiotics are administered, repeat procalcitonin testing should be performed every 2-3 da ys to consider early antibiotic cessation. PCT is a dynamic biomarker and most useful when trends are analyzed over time in accompaniment with other clinical data. Performing Organization Address [facility] Phone Number [address] [place] [place] [address] PTT (07/21/2020 8:30 AM CDT) Pathologist Sig nature APTT 30 24 - [address] Specimen Blood - Blood specimen (specimen) Performing Organization Address [facility] Phone Number [address] [place] [address] BLOOD GASES VENOUS WITH LACTIC ACID (07/21/2020 8:30 AM CDT) pH Venous 7.45 7.30 - 7.45 [facility] RESPIRATORY [facility] pCO2 Venous 43 35 - 50 mmHg [facility] pO2 Venous 56 (H) 35 - 45 MMHG [facility] Base Excess Venous 5 (H) -2 - 2 meq/L [facility] HCO3 Venous 30 (H) 20 - 29 [facility] mmol/L [facility] O2 Saturation % 87 (H) 60 - 80 % [facility] Carbon Monoxide 0.8 0.0 - 3.0 % [facility] Methemoglobin 0.9 0.0 - 3.0 % [facility] p50 26.74 25.00 - [facility] 29.00 mmHg [facility] Allens Test Allens Test is [facility] not Required [facility] Collection Site Info not given [facility] O2 Source Unknown [facility] Lactic Acid 0.8 0.5 - 2.2 [facility] mmol/L [facility] Specimen Blood - Venous blood specimen (specimen) Performing Organization Address [facility] Phone Number [facility] - [address] [place] [address], [place] [address] RESPIRATORY THERAPY TROPONIN I (07/21/2020 8:30 AM CDT) Pathologist Sig nature Troponin I 0.297 (H) 0.000 - 0.028 ng/mL [address] Specimen Blood - Blood specimen (specimen) Performing Organization Address [facility] Phone Number [place] [address] [place] [address] BRAIN NATRIURETIC PEPTIDE (07/21/2020 8:30 AM CDT) Pathologist Sig [facility] BNP 959 (H) 0 - 100 pg/mL [address] Specimen Blood - Blood specimen (specimen) Performing Organization Address [facility] Phone Number [place] [address] [place] [address] PROTIME/INR (07/21/2020 8:30 AM CDT) Pathologist Sig [facility] Protime 15.2 (H) 12.0 - 14.[address] INR 1.3 (L) 2.0 - 3.[address] Specimen Blood - Blood specimen (specimen) Narrative Performed At Normal INR reference range (patients not on oral antic oagulants) [address] 0.9-1.1. INR Standard Intensity = (2.0 - 3.0) INR Higher Intensity = (2.5 - 3.5) Performing Organization Address [facility] Phone Number [address] [address] COMPREHENSIVE METABOLIC PANEL (07/21/2020 8:30 AM CDT) Pathologist Sig [facility] Glucose 82 70 - 100 mg/dL [address] BUN 31 (H) 6 - 22 mg/dL [address] Creatinine 1.40 (H) 0.80 - 1.[address] mg/dL BUN/Creatinine Ratio 22.1 10.0 - 25.[address] Sodium 139 135 - 145 meq/L [address] Potassium 3.7 3.5 - 5.3 meq/L [address] Chloride 105 99 - 110 meq/L [address] CO2 27 20 - 29 meq/L [address] Anion Gap with K 11 6 - 20 meq/L [address] Calcium 8.3 (L) 8.5 - 10.5 [place] [address] [facility] mg/dL Protein Total 5.3 (L) 6.0 - 8.2 g/dL [address] Albumin 3.2 (L) 3.5 - 5.0 g/dL [address] Alkaline Phosphatase 100 30 - 150 U/L [address] AST - SGOT 33 0 - 35 U/L [address] ALT - SGPT 30 0 - 55 U/L [address] Bilirubin Total 1.4 (H) 0.2 - 1.2 mg/dL [address] Corrected Calcium 8.9 8.5 - 10.5 [place] [address] [facility] mg/dL Age [address] eGFR Non- 49 (L) >=[address] [place] mL/min/1.73m2 eGFR 59 (L) >=[address] mL/min/1.73m2 Specimen Blood - Blood specimen (specimen) Performing Organization Address City/[facility]/Zipcode Phone Number [place] [address] [address] [place] [address] GLUCOSE BY METER, POCT (07/21/2020 8:05 AM CDT) [facility] Glucose POC 62 (L) 70 - 99 mg/dL [facility] O POINT OF CARE TESTING Specimen Blood - Blood specimen (specimen) Performing Organization Address City/[facility] Phone Number [facility] POINT OF [address] [place] [address] CARE TESTING documented in this encounter Visit Diagnoses Diagnosis Stented coronary artery - Primary Postsurgical percutaneous transluminal c oronary angioplasty status Bacteremia Benign prostatic hyperplasia with lower urinary tract symptoms, symptom details unspecified Acid indigestion Dyspepsia and other specified disorders of function of stomach Mood disorder (HCC) Unspecified episodic mood disorder Constipation, unspecified constipation t ype Coronary artery disease involving ekuk coronary artery of ekuk heart without angina pectoris Insomnia, unspecified type Atrial fibrillation, unspecified type (H CC) Nausea Nausea alone Essential hypertension Unspecified essential hypertension Controlled type 2 diabetes mellitus with diabetic polyneuropathy, with long-term current use of insulin (HCC) 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, unspecified Primary osteoarthritis of right hip Primary localized osteoarthrosis, pelvic region and thigh Posterior uveitis, bilateral Chorioretinitis, unspecified Encephalopathy Encephalopathy, unspecified documented in this encounter Discharge Diagnoses Not on filedocumented in this encounter Administered Medications Medication Order MAR Action Action Date Dose Rate Site acetaminophen (TYLENOL) tablet Given 08/03/2020 4:14 AM CDT 650 mg 650 mg 650 mg, Oral, Every four hours prn, Starting Sun07/21/20 at 0742, Until Discontinued, mild pain, fever, pain scale 3 or less, Pain stratification is defined as follows for either analog scale (0-10) or critical care pain observation tool (CPOT, 0-8). a. No pain (0) b. Mild pain level (1-3) c. Moderate pain level (4-6) d. Severe pain level (greater than or equal to 7) Adult patients: Total dose of acetaminophen from all acetaminophen containing products should not exceed 4 grams (4,000 mg) per day. Pediatric Patients 0 - 3 months: Maximum of 60 mg/kg/24 hours of acetaminophen. Pediatric Patients older than 3 months: Maximum of 75 mg/kg/24 hours of acetaminophen (Never exceeding 4 grams/day)., Given 07/30/2020 5:25 AM CDT 650 mg Given 07/29/2020 9:34 PM CDT 650 mg albuterol-ipratropium (DUO-NEB) 2.5-0.5 mg/3 mL inhalation solution 3 mL 3 mL, Nebulization, Every four hours prn, Starting Sun07/23/20 at 0340, Until Discontinued, bronchospasm, shortness of breath, wheez ing, 3 mL amLODIPine (NORVASC) tablet 10 mg Given 08/03/2020 11:00 AM CDT 10 mg 10 mg, Oral, Daily, First dose on Sun07/21/20 at 1330, Until Discontinued, Hold for SBP less than 100, Given 08/02/2020 8:14 AM CDT 10 mg Given 08/01/2020 8:37 AM CDT 10 mg apixaban (ELIQUIS) tablet 2.5 mg Given 08/03/2020 11:00 AM CDT 2.5 mg 2.5 mg, Oral, Two times a day, First dose (after last modification) on Sun07/30/20 at 2100, Until Discontinued Given 08/02/2020 8:01 PM CDT 2.5 mg Given 08/02/2020 8:14 AM CDT 2.5 mg aspirin enteric coated tablet 81 mg Given 08/03/2020 11:00 AM CDT 81 mg 81 mg, Oral, Daily, First dose on Sun07/28/20 at 0900, Until Discontinued, Post-Procedure (Cath), Tablet should be swallowed whole and not be divided, crushed or chewed., Given 08/02/2020 8:12 AM CDT 81 mg Given 08/01/2020 8:37 AM CDT 81 mg bisacodyl (DULCOLAX) suppository 10 mg 10 mg, Rectal, One time a day prn, Starting Sun 1 at 0838, Until Discontinued, constipation, Use SECOND for constipatio n. If patient cannot take oral medications, use first for constipation., calcium carbonate (TUMS) chewable tablet 500 Given 11:19 PM CDT 500 mg mg 500 mg, Oral, Four times a day prn, Starting 07/24/20 at 2234, Until Discontinued, indigestion carbohydrate 15 g 15 g, Oral, PRN per parameter, Starting Sun07/21/20 at 0800, Until Discontinued, low blood glucose, Give 15 grams of carb ohydrate if blood glucose is less than 70 mg/dL, patient is responsive and able to take food or oral meds. Recheck blood glucose in 15 minutes. Repeat 1 time and call MD. If recheck is greater than 70 mg/dL and able to take food or oral meds, give 15 gram carbohydrate if meal or snack due in more than an hour. Serve meal or snack if due in less than 1 hour. See hypoglycemia treatment on cardex. S ources of 15 grams carbohydrate: a. 4 oz of fruit juice or b. 4 oz of soda pop (NOT diet) or c. 1 tablespoon of honey, cefTRIAXone (ROCEPHIN) 2000 mg/20 mL IV Given 08/02/2020 3:52 P M CDT 2,000 mg syringe in sterile water 2,000 mg, IV, Every twenty four hours, 14 doses, First dose on Sun07/22/20 at 1600, Last dose on Sun08/04/20 at 1600, 20 mL, Flush IV line with normal saline prior and post administration. Do not administer with calcium containing solutions (example: Lactated Ringer's, TPN with calcium, etc) as these are not compatible with ceftriaxone. Administer over 5 minutes., Given 08/01/2020 3:48 PM CDT 2,000 mg Given 07/31/2020 3:06 PM CDT 2,000 mg cloNIDine (CATAPRES) tablet 0.1 mg Given 08/03/2020 11:00 AM CDT 0.1 mg 0.1 mg, Oral, Two times a day, First dose on Sun07/21/20 at 2100, Until Discontinued, Hold for SBP less than 100, Given 08/02/2020 8:01 PM CDT 0.1 mg Given 08/02/2020 8:13 AM CDT 0.1 mg clopidogrel (PLAVIX) tablet 75 mg Given 08/03/2020 11:00 AM CDT 75 mg 75 mg, Oral, Daily, 365 doses, First dose on Sun07/28/20 at 0900, Last dose on Sun07/27/21 at 0900, Post-Procedure (Cath) Given 08/02/2020 8:14 AM CDT 75 mg Given 08/01/2020 8:37 AM CDT 75 mg dextrose 50% IV solution 50 mL Given 07/31/2020 5:57 AM CDT 50 mL 50 mL (25 g), IV, PRN per parameter, Starting Sun07/21/20 at 0800, Until Discontinued, low blood glucose, 50 mL, Give if blood glucose is less than 70 mg/dL, patient is unresponsive or NPO, and has IV access. Recheck blood glucose in 15 minutes and call MD. Repeat dose if recheck less than 70 mg/dL and call MD. If recheck is greater than 70 mg/dL and able to take food or oral meds, give 15 gram carbohydrate if meal or snack due in more than an hour. Serve meal or snack if due in less than 1 hour. See hypoglycemia treatment on cardex., Given 07/21/2020 8:41 AM CDT 50 mL dextrose chewable tablet 16 g 16 g (4 tablet), Oral, PRN per parameter, Starting Sun07/21/20 at 0800, Until Discontinued, low blood glucose, Chew before swallowin g. Give 15 gram of carbohydrate if blood glucose is less th an 70 mg/dL, patient is responsive and able to take food or oral meds. Recheck blood glucose in 15 minutes. Repeat 15 gram carbohydrate if recheck is less than 70 mg/dL and call MD. If recheck is greater than 70 mg/dL and able to take food or o ral meds, give 15 gram carbohydrate if meal or snack due in more than an hour. Serve meal or snack if due in less than 1 hour. See hypoglycemia treatment on cardex. (S ources of 15 gram carbohydrate: 4 oz fruit juice or 4 oz soda pop (NOT diet) or 1 t ablespoonful honey or 4 glucose tablets.), docusate sodium (THEREVAC-SB MINI;ENEMEE Z MINI) 283 MG enema 1 enema 1 enema, Rectal, One time a day prn, Starting 07/21 at 0838, Until Discontinued, constipation, Use THIRD for constipation - if no BM 8 hours after dulcolax suppository. If patient cannot take oral medi cations, use second for constipation., donepezil (ARICEPT) tablet 20 mg Given 08/03/2020 11:00 AM CDT 20 mg 20 mg, Oral, Every morning, First dose (after last modification) on 07/24/20 at 0900, Until Discontinued Given 08/02/2020 8:13 AM CDT 20 mg Given 08/01/2020 8:37 AM CDT 20 mg glucagon for injection 1 mg vial 1 mg 1 mg, Intramuscular, PRN per parameter, Starting Sun at 0800, Until Discontinued, low blood glucose, Give if blood glucose less than 70 mg/dL, patient is unresponsive or NPO, and has no IV ac cess. Establish IV access. Recheck blood glucose in 15 minutes and call MD. If r echeck is greater than 70 mg/dL and able to take food or oral meds, give 15 gram car bohydrate if meal or snack due in more than an hour. Serve meals or snack if due in less than 1 ho ur. See hypoglycemia treatment on cardex. Reconstitute vial with 1 mL of sterile water for injection for reconstitution for a final concentra tion of 1 mg/mL. Shake vial gently. Use immediately and discard unused portion. Reconstitute with 1 mL of sterile water for injection to yield 1 mg/mL. Shake vial gently. Use immediately and discard unused portion., hydrALAZINE (APRESOLINE) injection solut ion 10 mg 10 mg, IV, Every six hours prn, Starting Sun07/27/20 at 1338, Until Discontinued, specified parameter, to keep SBP less th an 150 mmHg, 0.5 mL, Repeat in 20 minutes if needed. If not successful after two d oses, contact the interventional cardiology team., hydrALAZINE (APRESOLINE) tablet 75 mg Given 08/03/2020 11:00 AM CDT 75 mg 75 mg, Oral, Three times a day, First dose (after last modification) on Sun08/01/20 at 1500, Until Discontinued, Hold for SBP less than 100, Given 08/02/2020 8:01 PM CDT 75 mg Given 08/02/2020 3:53 PM CDT 75 mg insulin aspart (NovoLOG) SQ correction Given 08/02/2020 6:14 PM CDT 3 Units scale (Adult) 2-8 Units, Subcutaneous, Three times a day, First dose on Sun07/21/20 at 1225, Until Discontinued, 0.08 mL, Give this dose whether patient is eating or patient is NPO LOW DOSE insulin aspart (NovoLOG) subcutaneous correction scale Premeal Blood Glucose = Insulin Dose 150-199 2 units 200-249 3 units 250-299 5 units 300-349 7 units Over 349 8 units, Given 08/02/2020 12:17 PM CDT 2 Units Given 08/01/2020 6:48 PM CDT 2 Units insulin aspart (NovoLOG) SQ injection Given 08/03/2020 12:35 PM CDT 8 Units 8 Units, Subcutaneous, Three times a day with meals, First dose (after last modification) on Sun08/01/20 at 1730, Until Discontinued, 0.08 mL, Must be given within 15 minutes of start of meal. DO NOT GIVE IF PATIENT IS NPO., Given 08/02/2020 6:15 PM CDT 8 Units Given 08/02/2020 12:16 PM CDT 8 Units insulin glargine (LANTUS) SQ injection Given 08/03/2020 11:00 AM CDT 35 Units 35 Units, Subcutaneous, DAILY, First dose (after last modification) on Sun08/01/20 at 0900, Until Discontinued, 0.35 mL, Blood Glucose greater than or equal to 100 mg/dL - Do Not Hold If Blood Glucose LESS than 100 mg/dL, if patient changed to NPO, or if tube feedings stopped - Immediately notify provider before administration., Given 08/02/2020 8:12 AM CDT 35 Units Given 08/01/2020 8:37 AM CDT 35 Units melatonin tablet 6 mg Given 08/02/2020 8:01 PM CDT 6 mg 6 mg, Oral, Bedtime prn, Starting Sun07/27/20 at 2240, Until Discontinued, insomnia Given 07/31/2020 9:03 PM CDT 6 mg Given 07/29/2020 9:16 PM CDT 6 mg metoprolol tartrate (LOPRESSOR) half-tablet Given 07/09 8:01 PM CDT 12.5 mg 12.5 mg 12.5 mg, Oral, Two times a day, First dose on Sun07/26/20 at 1335, Until Discontinued, Hold for SBP less than 100 Hold for HR less than 60, Given 08/01/2020 8:07 PM CDT 12.5 mg Given 08/01/2020 8:37 AM CDT 12.5 mg mirtazapine (REMERON) tablet 15 mg Given 08/02/2020 8:01 PM CDT 15 mg 15 mg, Oral, Bedtime, First dose on Sun07/21/20 at 2100, Until Discontinued Given 08/01/2020 8:07 PM CDT 15 mg Given 07/31/2020 9:03 PM CDT 15 mg nitroglycerin (NITROSTAT) sublingual tab let 0.4 mg 0.4 mg, Sublingual, Every five minutes prn, Starting T u07/27/20 at 1338, Until Discontinued, chest pain, At onset of ch est pain, dissolve one tablet under tongue. May repeat every 5 minutes for 3 doses. Do not crush o r chew., ondansetron (ZOFRAN ODT) dispersible tab let 4 mg 4 mg, Oral, Four times a day prn, Starti ng Sun07/21/20 at 0838, Until Discontinued, nausea, vomiting, Use FIRST for nausea / vomiting. If ineffective after 30 minutes use ondansetron IV, ondansetron (ZOFRAN) injection solution 4 mg 4 mg, IV, Four times a day prn, Starting Sun07/21/20 at 0838, Until Discontinued, nausea, vomiting, 2 mL, Use SECOND for n ausea / vomiting. If ineffective after 30 minutes and ondansetron ODT used, call magdy quiroz for alternative. If preference is to further dilute for IV administration: First draw up patient-specific dose, then dilute to 10 mL with 0.9% sodium chloride., polyethylene glycol (MIRALAX) packet 1 Given 08/02/2020 8:22 AM CDT 1 packet packet 1 packet, Oral, Daily, First dose on Sun07/25/20 at 1005, Until Discontinued, Dissolve in 8 ounces of water, juice, soda, coffee, tea Do NOT give if patient on thickened liquids. Contact provider for alternative if needed. , Given 08/01/2020 8:37 AM CDT 1 packet Given 07/31/2020 9:17 AM CDT 1 packet polyvinyl alcohol-povidone (REFRESH) Given 08/03/2020 11:00 AM C DT 1 drop preservative free ophthalmic solution 1 drop 1 drop, Both eyes, Four times a day, First dose on Sun07/23/20 at 2000, Until Discontinued, 1 mL Given 08/02/2020 8:01 PM CDT 1 drop Given 08/02/2020 3:54 PM CDT 1 drop QUEtiapine (SEROquel) tablet 37.5 mg Given 08/02/2020 6:19 PM CDT 37.5 mg 37.5 mg, Oral, Every twenty four hours, First dose (after last modification) on Sun07/25/20 at 1900, Until Discontinued Given 08/01/2020 8:06 PM CDT 37.5 mg Given 07/31/2020 9:02 PM CDT 37.5 mg rosuvastatin (CRESTOR) tablet 40 mg Given 08/03/2020 11:00 AM CDT 40 mg 40 mg, Oral, DAILY, First dose on Sun07/22/20 at 0900, Until Discontinued Given 08/02/2020 8:13 AM CDT 40 mg Given 08/01/2020 8:37 AM CDT 40 mg senna-docusate sodium (SENOKOT-S;PERICOL GARY) tablet 2 tablet 2 tablet, Oral, Two times a day prn, Starting 07/21 at 0838, Until Discontinued, constipation, Use FIRST fo r constipation unless patient cannot take oral medications., sodium chloride 0.9% flush (adult) 10 mL Given 08/03/2020 11:00 AM CDT 10 mL 10 mL, IV, Two times a day and prn, First dose on Sun07/21/20 at 0900, Until Discontinued, 10 mL, Flush unused lumens as scheduled and as often as necessary before and after meds. Use a push/pause technique when flushing to create turbulence., Given 08/02/2020 8:01 PM CDT 10 mL Given 08/02/2020 8:14 AM CDT 10 mL tamsulosin (FLOMAX) capsule 0.4 mg Given 08/02/2020 8:00 PM CDT 0.4 mg 0.4 mg, Oral, Bedtime, First dose on Sun07/21/20 at 2100, Until Discontinued, Swallow cap whole. Do not crush, chew or open., Given 08/01/2020 8:07 PM CDT 0.4 mg Given 07/31/2020 9:01 PM CDT 0.4 mg umeclidinium-vilanterol (ANORO ELLIPTA) Given 08/03/2020 10:33 A M CDT 1 puff 62.5-25 mcg/Inh inhaler 1 puff 1 puff, Inhalation, Daily, First dose on 07/31/20 at 1430, Until Discontinued Given 08/02/2020 12:45 PM CDT 1 puff Given 08/01/2020 9:24 AM CDT 1 puff Medication Order MAR Action Action Date Dose Rate Site 82Rb-rubidium 60 Given 07/27/2020 10:32 AM 58.56 millicuries millicurie CDT 60 millicurie, IV, Now imaging, 1 dose, Starting Sun07/27/20 at 1026, Until Sun07/27/20 at 1032 acetaminophen (TYLENOL) tablet 1,000 mg Given 07/22/2020 9:36 PM CDT 1,000 mg 1,000 mg, Oral, Now, 1 dose, Sun07/22/20 at 2115, Total dose of acetaminophen from all acetaminophen containing products should not exceed 4 grams (4000 mg) per day., albuterol-ipratropium (DUO-NEB) 2.5-0.5 mg/3 Given 8:25 PM CDT 3 mL mL inhalation solution 3 mL 3 mL, Nebulization, Every four hours, First dose on Sun07/21/20 at 1330, Until Discontinued, 3 mL Given 07/21/2020 4:25 PM CDT 3 mL Given 07/21/2020 1:30 PM CDT 3 mL albuterol-ipratropium (DUO-NEB) 2.5-0.5 mg/3 Given 3:30 AM CDT 3 mL mL inhalation solution 3 mL 3 mL, Nebulization, Now, 1 dose, Sun07/23/20 at 0320, 3 mL apixaban (ELIQUIS) tablet 5 mg Given 07/30/2020 9:18 AM CDT 5 mg 5 mg, Oral, Two times a day, First dose on Sun07/22/20 at 1200, Until Discontinued Given 07/29/2020 9:17 PM CDT 5 mg Given 07/29/2020 9:13 AM CDT 5 mg aspirin tablet 325 mg Given 07/27/2020 12:27 PM CDT 325 mg 325 mg, Oral, One time, 1 dose, Sun07/27/20 at 1220, Prep Orders (Cath) if inpatient - floor RN to release, Patient to receive 325 mg aspirin prior to procedure If patient currently taking aspirin at home and has not taken their dose today prior to procedure: hold this dose and administer 325 mg, azithromycin (ZITHROMAX) tablet 500 mg Given 07/23/2020 8:01 AM CDT 500 mg 500 mg, Oral, Daily, 3 doses, First dose on Sun07/21/20 at 1330, Last dose on Sun07/23/20 at 0900 Given 07/22/2020 8:30 AM CDT 500 mg Given 07/21/2020 3:48 PM CDT 500 mg cefTRIAXone (ROCEPHIN) 1000 mg/10 mL IV Given 07/22/2020 8:27 A M CDT 1,000 mg syringe in sterile water 1,000 mg, IV, DAILY, 7 doses, First dose on Sun07/21/20 at 1330, Last dose on Sun07/27/20 at 0900, 10 mL, Flush IV line with normal saline prior and post administration. Do not administer with calcium containing solutions (example: Lactated Ringer's, TPN with calcium, etc) as these are not compatible with ceftriaxone. Administer over 5 minutes., Given 07/21/2020 3:47 PM CDT 1,000 mg clopidogrel (PLAVIX) tablet 75-600 mg Given 07/27/2020 1:48 PM CDT 600 mg 75-600 mg, Oral, Administer in Cardiac Operation Agent, 1 dose, Sun07/27/20 at 1335, Under the direction of the provider in CCL. Do not give on the floor., dextrose 50% IV solution 1 dose, Starting Sun07/21/20 at 0836, Un til Sun07/21/20 at 0841, MillerElizabeth: cabinet override, donepezil (ARICEPT) tablet 20 mg Given 07/22/2020 8:31 AM CDT 20 mg 20 mg, Oral, Every morning, First dose on Sun07/22/20 at 0900, Until Discontinued donepezil (ARICEPT) tablet 20 mg Given 07/23/2020 8:02 AM CDT 20 mg 20 mg, Oral, Now, 1 dose, Sun07/23/20 at 0740 fentaNYL 100 mcg/2 mL preservative free Given 07/25/2020 12:11 A M CDT 12.5 mcg injection solution 12.5 mcg 12.5 mcg, IV, One time, 1 dose, Sun07/25/20 at 0000, 0.25 mL fentaNYL 100 mcg/2 mL preservative free Given 07/27/2020 1:06 P M CDT 50 mcg injection solution 25-300 mcg 25-300 mcg, IV, PRN per parameter, Starting Sun07/27/20 at 1219, Until Sun07/28/20 at 1721, other (Specify), sedation for cardiac catheterization, 6 mL, Pre-Procedure (Cath), procedural area to release, For sedation under direction provider privileged to perform sedation. Do not give on the floor., formoterol (PERFOROMIST) 20 MCG/2ML Given 07/22/2020 8:23 AM CD T 20 mcg inhalation solution 20 mcg 20 mcg, Nebulization, Two times a day, First dose on [place] 07/22/20 at 0800, Until Discontinued, 2 mL formoterol (PERFOROMIST) 20 MCG/2ML Given 07/31/2020 6:10 AM CD T 20 mcg inhalation solution 20 mcg 20 mcg, Nebulization, Two times a day, First dose on Sun07/23/20 at 0800, Until Discontinued, 2 mL Given 07/30/2020 6:20 PM CDT 20 mcg Given 07/30/2020 8:26 AM CDT 20 mcg furosemide (LASIX) injection solution 40 mg Given 07/23/2020 8:08 AM CDT 40 mg 40 mg, IV, Two times a day diuretic, First dose on Sun07/21/20 at 1330, Until Discontinued, 4 mL, If preference is to further dilute for IV administration: First draw up patient-specific dose, then dilute to 10 mL with 0.9% sodium chloride. Administer SLOW IV push., Given 07/22/2020 5:16 PM CDT 40 mg Given 07/22/2020 8:36 AM CDT 40 mg furosemide (LASIX) injection solution 40 mg Given 07/27/2020 8:32 AM CDT 40 mg 40 mg, IV, Every twenty four hours, First dose (after last modification) on 07/24/20 at 0800, Until Discontinued, 4 mL, If preference is to further dilute for IV administration: First draw up patient-specific dose, then dilute to 10 mL with 0.9% sodium chloride. Administer SLOW IV push., Given 07/26/2020 9:17 AM CDT 40 mg Given 07/25/2020 8:33 AM CDT 40 mg heparin (porcine) injection solution Given 07/27/2020 1:20 PM C DT 5,000 Units 0-12,000 Units 0-12,000 Units, IV, Administer in Cardiac Operation Agent, 1 dose, Sun07/27/20 at 1325, 12 mL, Under the direction of the provider in CCL. Do not give on the floor., hydrALAZINE (APRESOLINE) injection solution Given 07/25/2020 2:35 AM CDT 10 mg 10 mg 10 mg, IV, Every four hours prn, Starting Sun07/21/20 at 1237, Until Sun07/27/20 at 1343, for SBP > 160, 0.5 mL Given 07/23/2020 8:16 AM CDT 10 mg Given 07/22/2020 10:37 PM CDT 10 mg hydrALAZINE (APRESOLINE) tablet 25 mg Given 07/25/2020 8:33 AM CDT 25 mg 25 mg, Oral, Two times a day, First dose on Sun07/23/20 at 1030, Until Discontinued, Hold for SBP less than 100, Given 07/24/2020 8:01 PM CDT 25 mg Given 07/24/2020 9:36 AM CDT 25 mg hydrALAZINE (APRESOLINE) tablet 25 mg Given 07/28/2020 3:03 PM CDT 25 mg 25 mg, Oral, Three times a day, First dose (after last modification) on Sun07/25/20 at 1500, Until Discontinued, Hold for SBP less than 100, Given 07/28/2020 8:57 AM CDT 25 mg Given 07/27/2020 8:41 PM CDT 25 mg hydrALAZINE (APRESOLINE) tablet 50 mg Given 08/01/2020 8:37 AM CDT 50 mg 50 mg, Oral, Three times a day, First dose (after last modification) on Sun07/28/20 at 2100, Until Discontinued, Hold for SBP less than 100, Given 07/31/2020 9:01 PM CDT 50 mg Given 07/31/2020 3:06 PM CDT 50 mg insulin aspart (NovoLOG) SQ injection Given 07/25/2020 11:46 AM CDT 5 Units 5 Units, Subcutaneous, Now, 1 dose, Sun07/25/20 at 1125, 0.05 mL insulin aspart (NovoLOG) SQ injection Given 07/25/2020 3:29 PM CDT 8 Units 8 Units, Subcutaneous, Now, 1 dose, Sun07/25/20 at 1525, 0.08 mL insulin aspart (NovoLOG) SQ injection Given 07/28/2020 8:57 AM CDT 5 Units 5 Units, Subcutaneous, Three times a day with meals, First dose on Sun07/25/20 at 1730, Until Discontinued, 0.05 mL, Must be given within 15 minutes of start of meal. DO NOT GIVE IF PATIENT IS NPO., Given 07/27/2020 5:26 PM CDT 5 Units Given 07/26/2020 5:47 PM CDT 5 Units insulin aspart (NovoLOG) SQ injection Given 07/29/2020 9:12 AM CDT 8 Units 8 Units, Subcutaneous, Three times a day with meals, First dose (after last modification) on 07/28/20 at 1130, Until Discontinued, 0.08 mL, Must be given within 15 minutes of start of meal. DO NOT GIVE IF PATIENT IS NPO., Given 07/28/2020 5:50 PM CDT 8 Units Given 07/28/2020 12:34 PM CDT 8 Units insulin aspart (NovoLOG) SQ injection Given 07/31/2020 12:34 PM CDT 12 Units 12 Units, Subcutaneous, Three times a day with meals, First dose (after last modification) on [place] 07/29/20 at 1130, Until Discontinued, 0.12 mL, Must be given within 15 minutes of start of meal. DO NOT GIVE IF PATIENT IS NPO., Given 07/31/2020 9:32 AM CDT 12 Units Given 07/30/2020 5:03 PM CDT 12 Units insulin aspart (NovoLOG) SQ injection Given 08/01/2020 8:36 AM CDT 10 Units 10 Units, Subcutaneous, Three times a day with meals, First dose (after last modification) on 07/31/20 at 1730, Until Discontinued, 0.1 mL, Must be given within 15 minutes of start of meal. DO NOT GIVE IF PATIENT IS NPO., Given 07/31/2020 5:52 PM CDT 10 Units insulin glargine (LANTUS) SQ injection Given 07/23/2020 8:19 AM CDT 10 Units 10 Units, Subcutaneous, DAILY, First dose on [place] 07/22/20 at 1430, Until Discontinued, 0.1 mL, Blood Glucose greater than or equal to 100 mg/dL - Do Not Hold If Blood Glucose LESS than 100 mg/dL, if patient changed to NPO, or if tube feedings stopped - Immediately notify provider before administration., Given 07/22/2020 5:19 PM CDT 10 Units insulin glargine (LANTUS) SQ injection Given 07/25/2020 8:33 AM CDT 15 Units 15 Units, Subcutaneous, DAILY, First dose (after last modification) on 07/24/20 at 0900, Until Discontinued, 0.15 mL, Blood Glucose greater than or equal to 100 mg/dL - Do Not Hold If Blood Glucose LESS than 100 mg/dL, if patient changed to NPO, or if tube feedings stopped - Immediately notify provider before administration., Given 07/24/2020 10:57 AM CDT 15 Units insulin glargine (LANTUS) SQ injection Given 07/25/2020 1:56 PM CDT 5 Units 5 Units, Subcutaneous, One time, 1 dose, [place] 07/25/20 at 1225, 0.05 mL, Blood Glucose greater than or equal to 100 mg/dL - Do Not Hold If Blood Glucose LESS than 100 mg/dL, if patient changed to NPO, or if tube feedings stopped - Immediately notify provider before administration., insulin glargine (LANTUS) SQ injection Given 07/25/2020 5:24 PM CDT 5 Units 5 Units, Subcutaneous, Now, 1 dose, [place] 07/25/20 at 1630, 0.05 mL, Blood Glucose greater than or equal to 100 mg/dL - Do Not Hold If Blood Glucose LESS than 100 mg/dL, if patient changed to NPO, or if tube feedings stopped - Immediately notify provider before administration., insulin glargine (LANTUS) SQ injection Given 07/26/2020 10:03 AM CDT 15 Units 25 Units, Subcutaneous, DAILY, First dose (after last modification) on Sun07/26/20 at 0900, Until Discontinued, 0.25 mL, Blood Glucose greater than or equal to 100 mg/dL - Do Not Hold If Blood Glucose LESS than 100 mg/dL, if patient changed to NPO, or if tube feedings stopped - Immediately notify provider before administration., insulin glargine (LANTUS) SQ injection Given 07/31/2020 9:32 AM CDT 40 Units 40 Units, Subcutaneous, DAILY, First dose (after last modification) on Sun07/27/20 at 0900, Until Discontinued, 0.4 mL, Blood Glucose greater than or equal to 100 mg/dL - Do Not Hold If Blood Glucose LESS than 100 mg/dL, if patient changed to NPO, or if tube feedings stopped - Immediately notify provider before administration., Given 07/30/2020 10:55 AM CDT 40 Units Given 07/29/2020 9:14 AM CDT 40 Units iohexol (OMNIPAQUE) 350 mg/mL solution 130 Given 07/27/2020 1:51 PM CDT 130 mL mL 130 mL, Intra-arterial, One time, 1 dose, Sun07/27/20 at 1355, 150 mL ipratropium (ATROVENT) 0.5 mg/2.5 mL Given 07/22/2020 8:22 AM C DT 0.25 mg inhalation soln 0.25 mg 0.25 mg, Nebulization, Every six hours, First dose on Sun07/21/20 at 2125, Until Discontinued, 2.5 mL Given 07/22/2020 1:39 AM CDT 0.25 mg ipratropium (ATROVENT) 0.5 mg/2.5 mL Given 07/31/2020 1:28 PM C DT 0.5 mg inhalation soln 0.5 mg 0.5 mg, Nebulization, Every six hours, First dose on Sun07/23/20 at 0800, Until Discontinued, 2.5 mL Given 07/31/2020 6:10 AM CDT 0.5 mg Given 07/31/2020 12:46 AM CDT 0.5 mg lidocaine PF (XYLOCAINE-MPF) 1 % preservative Given 1:08 PM CDT 1 mL free injection solution 0-40 mL 0-40 mL, Subcutaneous, Administer in Cardiac Operation Agent, 1 dose, Sun07/27/20 at 1310, 60 mL, Given by provider in CCL. Do not give on the floor., LORazepam (ATIVAN) 2 mg/mL injection solution Given 10:37 PM CDT 2 mg 2 mg 2 mg, IV, Now, 1 dose, [facility] 07/22/20 at 2225, 1 mL, If preference is to further dilute for IV administration: First draw up patient-specific dose, then dilute with EQUAL VOLUME of 0.9% sodium chloride, losartan tablet 100 mg Given 07/23/2020 8:01 AM CDT 100 mg 100 mg, Oral, Daily, First dose on Sun07/21/20 at 1330, Until Discontinued, Formulary Substitute for olmesartan 40mg, Given 07/22/2020 8:30 AM CDT 100 mg Given 07/21/2020 3:47 PM CDT 100 mg melatonin tablet 6 mg Given 07/24/2020 11:19 PM CDT 6 mg 6 mg, Oral, One time, 1 dose, Sun07/24/20 at 2315 midazolam (VERSED) injection solution 0.5-10 Given 1:06 PM CDT 1 mg mg 0.5-10 mg, IV, PRN per parameter, Starting Sun07/27/20 at 1219, Until Sun07/28/20 at 1721, other (Specify), sedation for cardiac catheterization, 10 mL, Pre-Procedure (Cath), procedural area to release, For sedation under direction provider privileged to perform sedation Do not give on the floor, nitroglycerin (NITROSTAT) 0.4 mg subling ual tablet 1 dose, Starting Sun07/27/20 at 1014, Until Sun 1 at 1015, MackRachel: cabinet override, nitroglycerin (NITROSTAT) sublingual tablet Given 07/09 10:15 AM CDT 0.4 mg 0.4 mg 0.4 mg, Sublingual, Every five minutes prn, Starting Sun07/27/20 at 1015, Until Sun07/27/20 at 1343, chest pain, At onset of chest pain, dissolve one tablet under tongue. May repeat every 5 minutes for 3 doses. Do not crush or chew., OLANZapine (zyPREXA) injection solution Given 07/23/2020 3:04 A M CDT 5 mg Left Arm 5 mg 5 mg, Intramuscular, Now, 1 dose, Sun07/23/20 at 0250, 2 mL, Reconstitute with 2.1 ml Sterile Water Inj to yield 5 mg/ml. Obtain sterile water from [employer]. , oxymetazoline (AFRIN) 0.05% nasal spray Given 08/02/2020 8:01 PM CDT 1 spray 1 spray, Intranasal, Every twelve hours, 6 doses, First dose on Sun07/31/20 at 1300, Last dose on Sun08/02/20 at 2100, 30 mL Given 08/02/2020 8:21 AM CDT 1 spray Given 08/01/2020 8:07 PM CDT 1 spray potassium chloride (K-TAB) CR tablet 20 mEq Given 07/30/2020 10:44 AM CDT 20 mEq 20 mEq, Oral, One time, 1 dose, 07/30/20 at 1020, Tablet should not be crushed or chewed., potassium chloride (KLOR-CON M20) CR tablet Given 07/08 5:16 PM CDT 40 mEq 40 mEq 40 mEq, Oral, One time, 1 dose, [facility] 07/22/20 at 1425, Tablet may be broken in half, but should not be crushed or chewed. Tablet may be dissolved in 4 oz of water. DO NOT give via feeding tube route as this can clog the tube., potassium chloride (KLOR-CON M20) CR tablet Given 07/08 5:25 PM CDT 40 mEq 40 mEq 40 mEq, Oral, One time, 1 dose, 07/25/20 at 1735, Tablet may be broken in half, but should not be crushed or chewed. Tablet may be dissolved in 4 oz of water. DO NOT give via feeding tube route as this can clog the tube., potassium chloride (KLOR-CON M20) CR tablet Given 07/08 10:03 AM CDT 40 mEq 40 mEq 40 mEq, Oral, One time, 1 dose, 07/26/20 at 1030, Tablet may be broken in half, but should not be crushed or chewed. Tablet may be dissolved in 4 oz of water. DO NOT give via feeding tube route as this can clog the tube., potassium chloride (KLOR-CON M20) CR tablet Given 07/09 11:50 AM CDT 40 mEq 40 mEq 40 mEq, Oral, One time, 1 dose, 08/01/20 at 1145, Tablet may be broken in half, but should not be crushed or chewed. Tablet may be dissolved in 4 oz of water. DO NOT give via feeding tube route as this can clog the tube., QUEtiapine (SEROquel) tablet 25 mg Given 07/24/2020 8:01 PM CDT 25 mg 25 mg, Oral, Bedtime, First dose on Sun07/23/20 at 2100, Until Discontinued Given 07/23/2020 9:09 PM CDT 25 mg sodium chloride 0.9% flush (adult) 10 mL Given 07/26/2020 9:17 AM CDT 10 mL 10 mL, IV, Two times a day and prn, First dose on Sun07/21/20 at 0900, Until Discontinued, 10 mL, Flush unused lumens as scheduled and as often as necessary before and after meds. Use a push/pause technique when flushing to create turbulence., Given 07/25/2020 8:03 PM CDT 10 mL Given 07/25/2020 8:33 AM CDT 10 mL sodium chloride 0.9% IV solution New Bag 07/26/2020 11:00 AM CDT 25 mL/hr IV, at 25 mL/hr, Continuous, Starting Sun07/26/20 at 1230, Until Sun07/26/20 at 2116, 1,000 mL, Pre-procedure ([facility]), procedural area to release sodium chloride 0.9% IV solution New Bag 07/27/2020 2:26 PM CDT 75 mL/hr IV, at 75 mL/hr, Continuous, Starting Sun07/27/20 at 1220, Until Sun07/27/20 at 1855, 1,000 mL, Prep Orders (Cath) if inpatient - floor RN to release, If this is a TILT procedure, start IV fluid at TKO (10 mL/hr) before transfer to the lab analyst, sodium chloride 0.9% IV solution New Bag 07/30/2020 3:52 PM CDT 50 mL/hr IV, at 50 mL/hr, Continuous, Starting Sun07/30/20 at 1600, Until Sun07/30/20 at 2359, 1,000 mL vancomycin (VANCOCIN) 2,000 mg in sodium Given 07/21/2020 8 :35 PM CDT 2,000 mg chloride 0.9% 500 mL (Locked) 2,000 mg, IV, Every eighteen hours, First dose on Sun07/21/20 at 1900, Until Discontinued, 500 mL, Vanco Dose 2000 mg- Total Volume: 560 mL @ 280 mL/hr x 2 hours, vancomycin (VANCOCIN) 2,000 mg in sodium Given 07/22/2020 9 :52 PM CDT 2,000 mg chloride 0.9% 500 mL (Locked) 2,000 mg, IV, Every twenty four hours, First dose on [place]iluz 07/22/20 at 2200, Until Discontinued, 500 mL, Vanco Dose 2000 mg- Total Volume: 560 mL @ 280 mL/hr x 2 hours, verapamil-hEParin in normal saline (radial Given 07/27/2020 1:0 8 PM CDT cocktail) Intra-arterial, Administer in Cardiac Operation Agent, 1 dose, e 07/27/20 at 1310, 10 mL, Under the direction of the provider in CCL. Do not give on the floor., documented in this encounter
[2020-08-04] MEDS: cefTRIAXone 2 GM Vial IVPUSH SCH (16:44)
[2020-08-04] MEDS: Acetaminophen 325 MG Tab PO PRN (17:32)
[2020-08-04] MEDS: QUEtiapine 25 MG Tab PO SCH (17:50)
[2020-08-04] MEDS: Tamsulosin 0.4 MG Cap.ER PO SCH (20:57)
[2020-08-04] MEDS: Mirtazapine 15 MG Tab PO SCH (20:57)
[2020-08-04] MEDS: Melatonin 3 MG Tab PO PRN (20:59)
[2020-08-05] MEDS: Acetaminophen 325 MG Tab PO PRN (03:36)
[2020-08-05] MEDS: Insulin Lispro 100 Unit/ML 3 ML KwikPen SUBCUT SCH ×3 (07:12→18:00)
[2020-08-05] MEDS: Lutein/Minerals/Vitamin C/Vitamin E Acetate Cap PO SCH (08:18)
[2020-08-05] MEDS: Clopidogrel 75 MG Tab PO SCH (08:18)
[2020-08-05] MEDS: hydrALAZINE 25 MG Tab PO SCH ×3 (08:18→20:37)
[2020-08-05] MEDS: amLODIPine 10 MG Tab PO SCH (08:18)
[2020-08-05] MEDS: Donepezil 10 MG Tab PO SCH (08:19)
[2020-08-05] MEDS: Apixaban 5 MG Tab PO SCH ×2 (08:19→20:35)
[2020-08-05] MEDS: Rosuvastatin 20 MG Tab PO SCH (08:20)
[2020-08-05] MEDS: Calcium Carbonate 500 MG Tablet PO SCH (08:22)
[2020-08-05] MEDS: Loperamide 2 MG Cap PO SCH ×2 (08:23→20:36)
[2020-08-05] MEDS: Vitamin B Complex with Vitamin C Tab PO SCH (08:23)
[2020-08-05] MEDS: Chondroitin/Glucosamine Cap PO SCH (08:23)
[2020-08-05] MEDS: cloNIDine 0.1 MG Tab PO SCH ×2 (08:24→20:36)
[2020-08-05] MEDS: Carboxymethylcellulose Sodium 0.5% Ophth Soln 0.4 ML UD Box of 30 EYEBOTH SCH ×4 (08:24→20:35)
[2020-08-05] MEDS: Tiotropium BR/Olodaterol HCL 4 GM Inhalation Spray 2.5mcg/1 dose; 10 doses INH SCH (08:26)
[2020-08-05] MEDS: Insulin Glargine,Human Rec. Analog 100 Units/ML 3 ML Pen SUBCUT SCH (08:40)
[2020-08-05] MEDS: sulfaSALAzine 500 MG Tab PO SCH ×2 (08:46→20:35)
[2020-08-05] MEDS: Zinc Sulfate 220 MG Cap PO SCH (08:47)
--- NOTE | 2020-08-05 15:18 | PCM.SN.2 ---
- Free Text/Narrative Note: DOS: 08/05/2020 S: Called in by nursing for bleeding from left 2nd toe, had gotten him up with standing lift and after they got him in the chair, noticed blood present on the lift and that the toe was bleeding. Applied pressure but they were unable to get stopped. O: Left toenail has been permanently removed as nail bed is completely keratinized, abrasion to distal end of toe with oozing of blood, has significant hammer toe on left 2nd toe where distal tip is having contact with floor or shoe. A: Abrasion to left 2nd toe, with bleeding; permanent removal of left 2nd toenail, healed; P: Pressure dressing initially placed, seeped through bandage, cautery with electric hot pen, then silver nitrate, had couple spots still oozing in spite of cautery, Absorbable hemostasis particles were applied, hemostasis achieved. Sterile gauze placed, secured with medium tube gauze. Placed in Podous boot bilateral for heel/toe protection while in bed.
[2020-08-05] MEDS: QUEtiapine 25 MG Tab PO SCH (18:35)
[2020-08-05] MEDS: Mirtazapine 15 MG Tab PO SCH (20:35)
[2020-08-05] MEDS: Tamsulosin 0.4 MG Cap.ER PO SCH (20:36)
[2020-08-06] MEDS: Insulin Lispro 100 Unit/ML 3 ML KwikPen SUBCUT SCH ×3 (07:00→17:53)
[2020-08-06] MEDS: hydrALAZINE 25 MG Tab PO SCH ×3 (09:25→20:52)
[2020-08-06] MEDS: Zinc Sulfate 220 MG Cap PO SCH (09:26)
[2020-08-06] MEDS: Calcium Carbonate 500 MG Tablet PO SCH (09:26)
[2020-08-06] MEDS: sulfaSALAzine 500 MG Tab PO SCH ×2 (09:26→20:50)
[2020-08-06] MEDS: Chondroitin/Glucosamine Cap PO SCH (09:26)
[2020-08-06] MEDS: Vitamin B Complex with Vitamin C Tab PO SCH (09:26)
[2020-08-06] MEDS: Carboxymethylcellulose Sodium 0.5% Ophth Soln 0.4 ML UD Box of 30 EYEBOTH SCH ×4 (09:27→20:52)
[2020-08-06] MEDS: Lutein/Minerals/Vitamin C/Vitamin E Acetate Cap PO SCH (09:27)
[2020-08-06] MEDS: amLODIPine 10 MG Tab PO SCH (09:28)
[2020-08-06] MEDS: Rosuvastatin 20 MG Tab PO SCH (09:29)
[2020-08-06] MEDS: cloNIDine 0.1 MG Tab PO SCH ×2 (09:29→20:51)
[2020-08-06] MEDS: Loperamide 2 MG Cap PO SCH ×2 (09:30→20:51)
[2020-08-06] MEDS: Donepezil 10 MG Tab PO SCH (09:31)
[2020-08-06] MEDS: Tiotropium BR/Olodaterol HCL 4 GM Inhalation Spray 2.5mcg/1 dose; 10 doses INH SCH (09:31)
[2020-08-06] MEDS: Insulin Glargine,Human Rec. Analog 100 Units/ML 3 ML Pen SUBCUT SCH (09:32)
[2020-08-06] MEDS: Clopidogrel 75 MG Tab PO SCH (09:45)
[2020-08-06] MEDS: Apixaban 5 MG Tab PO SCH ×2 (09:45→20:51)
--- NOTE | 2020-08-06 12:37 | PN ---
DATE SEEN: 08/06/2020 SUBJECTIVE: Mr. Delcid is a delightful 79-year-old male in swing bed. He has had kind of a scarlet clinical course over the last several months' duration. He was admitted to swing bed on 08/03/2020. Had a non-STEMI with right coronary artery stent, is on IV Rocephin until 08/04 for bacteremia of unknown source, and had a subarachnoid hemorrhage. He is presently on Eliquis and Plavix. No plans for aspirin. Physical therapy involved. He had a bleed of his 2nd toe, on Eliquis and Plavix. Bulky dressing in place. Related to changes . No laboratory studies have been performed. Sugars were identified. Presently on regular doses of Lantus and sliding scale Humalog. PHYSICAL EXAMINATION: VITAL SIGNS: 150/61. GENERAL: Conversant, but a bit distractible. NECK: Benign. CHEST: Decreased breath sounds. Some late inspiratory wheezes. HEART: Distant heart sounds. ABDOMEN: Benign. MAJOR CLINICAL AND MEDICAL COMPLEX PLAN: Supportive care management, discharge under consideration in future. /[id number] KIANNA/SHU
[2020-08-06] MEDS: QUEtiapine 25 MG Tab PO SCH (17:56)
[2020-08-06] MEDS: Melatonin 3 MG Tab PO PRN (20:50)
[2020-08-06] MEDS: Mirtazapine 15 MG Tab PO SCH (20:51)
[2020-08-06] MEDS: Tamsulosin 0.4 MG Cap.ER PO SCH (20:51)
[2020-08-07] MEDS: Insulin Lispro 100 Unit/ML 3 ML KwikPen SUBCUT SCH ×3 (08:24→18:11)
[2020-08-07] MEDS: hydrALAZINE 25 MG Tab PO SCH ×3 (09:42→21:00)
[2020-08-07] MEDS: cloNIDine 0.1 MG Tab PO SCH ×2 (09:42→21:00)
[2020-08-07] MEDS: Donepezil 10 MG Tab PO SCH (09:43)
[2020-08-07] MEDS: Zinc Sulfate 220 MG Cap PO SCH (09:44)
[2020-08-07] MEDS: Apixaban 5 MG Tab PO SCH ×2 (09:44→21:00)
[2020-08-07] MEDS: Vitamin B Complex with Vitamin C Tab PO SCH (09:44)
[2020-08-07] MEDS: Calcium Carbonate 500 MG Tablet PO SCH (09:44)
[2020-08-07] MEDS: sulfaSALAzine 500 MG Tab PO SCH ×2 (09:45→21:00)
[2020-08-07] MEDS: amLODIPine 10 MG Tab PO SCH (09:45)
[2020-08-07] MEDS: Loperamide 2 MG Cap PO SCH ×2 (09:45→21:00)
[2020-08-07] MEDS: Clopidogrel 75 MG Tab PO SCH (09:45)
[2020-08-07] MEDS: Chondroitin/Glucosamine Cap PO SCH (09:46)
[2020-08-07] MEDS: Lutein/Minerals/Vitamin C/Vitamin E Acetate Cap PO SCH (09:47)
[2020-08-07] MEDS: Rosuvastatin 20 MG Tab PO SCH (09:47)
[2020-08-07] MEDS: Carboxymethylcellulose Sodium 0.5% Ophth Soln 0.4 ML UD Box of 30 EYEBOTH SCH ×4 (09:48→21:00)
[2020-08-07] MEDS: Tiotropium BR/Olodaterol HCL 4 GM Inhalation Spray 2.5mcg/1 dose; 10 doses INH SCH (09:48)
[2020-08-07] MEDS: Insulin Glargine,Human Rec. Analog 100 Units/ML 3 ML Pen SUBCUT SCH (09:49)
--- NOTE | 2020-08-07 10:42 | PN ---
DATE SEEN: 08/07/2020 SUBJECTIVE: Stephen Delcid is an 79-year-old male on swing bed. Progress has been slow. Bleeding site on the hammertoe, second toe, stable. Abating without conflict. Medications reviewed and appropriate. LABORATORY STUDIES: Sugars last few days 211, 259, 138. OBJECTIVE: VITAL SIGNS: 160/78, pulse 84, respirations 16. GENERAL: Tall gentleman. NECK: Benign. Thyroid small. No JVD. CHEST: Clear in all lung farmer. HEART: Occasional ectopy, soft murmur. Rehab care in place. PLAN: Medications, care, and treatment appropriate, no changes or interval care. /[id number] /SHU
[2020-08-07] MEDS: QUEtiapine 25 MG Tab PO SCH (18:14)
[2020-08-07] MEDS: Tamsulosin 0.4 MG Cap.ER PO SCH (21:00)
[2020-08-07] MEDS: Mirtazapine 15 MG Tab PO SCH (21:00)
[2020-08-07] MEDS: Melatonin 3 MG Tab PO PRN (22:05)
[2020-08-07] MEDS: Acetaminophen 325 MG Tab PO PRN (22:05)
[2020-08-08] MEDS: Insulin Lispro 100 Unit/ML 3 ML KwikPen SUBCUT SCH ×3 (07:03→17:23)
[2020-08-08] MEDS: Chondroitin/Glucosamine Cap PO SCH (09:00)
[2020-08-08] MEDS: sulfaSALAzine 500 MG Tab PO SCH ×2 (09:00→20:39)
[2020-08-08] MEDS: Clopidogrel 75 MG Tab PO SCH (09:00)
[2020-08-08] MEDS: Calcium Carbonate 500 MG Tablet PO SCH (09:01)
[2020-08-08] MEDS: Lutein/Minerals/Vitamin C/Vitamin E Acetate Cap PO SCH (09:01)
[2020-08-08] MEDS: Loperamide 2 MG Cap PO SCH ×2 (09:01→20:38)
[2020-08-08] MEDS: Zinc Sulfate 220 MG Cap PO SCH (09:01)
[2020-08-08] MEDS: Vitamin B Complex with Vitamin C Tab PO SCH (09:02)
[2020-08-08] MEDS: Donepezil 10 MG Tab PO SCH (09:02)
[2020-08-08] MEDS: Rosuvastatin 20 MG Tab PO SCH (09:03)
[2020-08-08] MEDS: Carboxymethylcellulose Sodium 0.5% Ophth Soln 0.4 ML UD Box of 30 EYEBOTH SCH ×4 (09:09→20:05)
[2020-08-08] MEDS: cloNIDine 0.1 MG Tab PO SCH ×2 (09:10→20:05)
[2020-08-08] MEDS: amLODIPine 10 MG Tab PO SCH (09:10)
[2020-08-08] MEDS: hydrALAZINE 25 MG Tab PO SCH ×3 (09:10→20:38)
[2020-08-08] MEDS: Apixaban 5 MG Tab PO SCH ×2 (09:12→20:39)
[2020-08-08] MEDS: Insulin Glargine,Human Rec. Analog 100 Units/ML 3 ML Pen SUBCUT SCH (09:12)
[2020-08-08] MEDS: Tiotropium BR/Olodaterol HCL 4 GM Inhalation Spray 2.5mcg/1 dose; 10 doses INH SCH (09:18)
--- NOTE | 2020-08-08 10:11 | PN ---
DATE SEEN: 08/08/2020 SUBJECTIVE: Stephen Delcid is an 79-year-old male in swing bed. Rehab in progress. Slow, but predictable improvement. Self skills have been significantly compromised. Bleeding site of the second toe was stable. We will readdress in the morning. PHYSICAL EXAMINATION: VITAL SIGNS: Stable. NECK: Benign. Thyroid small. CHEST: Clear. HEART: Regular. ABDOMEN: Benign. ASSESSMENT: Rehab in progress. PLAN: Medications, care, and treatment in place. /[id number] 1006 KIANNA/SHU
[2020-08-08] MEDS: QUEtiapine 25 MG Tab PO SCH (19:01)
[2020-08-08] MEDS: Tamsulosin 0.4 MG Cap.ER PO SCH (20:05)
[2020-08-08] MEDS: Mirtazapine 15 MG Tab PO SCH (20:38)
[2020-08-09] MEDS: Insulin Lispro 100 Unit/ML 3 ML KwikPen SUBCUT SCH ×3 (08:26→17:17)
[2020-08-09] MEDS: hydrALAZINE 25 MG Tab PO SCH ×3 (08:48→20:06)
[2020-08-09] MEDS: Donepezil 10 MG Tab PO SCH (08:49)
[2020-08-09] MEDS: cloNIDine 0.1 MG Tab PO SCH ×2 (08:50→20:08)
[2020-08-09] MEDS: Rosuvastatin 20 MG Tab PO SCH (08:50)
[2020-08-09] MEDS: Apixaban 5 MG Tab PO SCH ×2 (08:51→20:09)
[2020-08-09] MEDS: Loperamide 2 MG Cap PO SCH (08:51)
[2020-08-09] MEDS: Chondroitin/Glucosamine Cap PO SCH (08:51)
[2020-08-09] MEDS: Lutein/Minerals/Vitamin C/Vitamin E Acetate Cap PO SCH (08:52)
[2020-08-09] MEDS: amLODIPine 10 MG Tab PO SCH (08:52)
[2020-08-09] MEDS: Clopidogrel 75 MG Tab PO SCH (08:53)
[2020-08-09] MEDS: Calcium Carbonate 500 MG Tablet PO SCH (08:53)
[2020-08-09] MEDS: Vitamin B Complex with Vitamin C Tab PO SCH (08:54)
[2020-08-09] MEDS: sulfaSALAzine 500 MG Tab PO SCH ×2 (08:54→20:09)
[2020-08-09] MEDS: Zinc Sulfate 220 MG Cap PO SCH (08:54)
[2020-08-09] MEDS: Carboxymethylcellulose Sodium 0.5% Ophth Soln 0.4 ML UD Box of 30 EYEBOTH SCH ×4 (09:01→20:05)
[2020-08-09] MEDS: Tiotropium BR/Olodaterol HCL 4 GM Inhalation Spray 2.5mcg/1 dose; 10 doses INH SCH (09:01)
[2020-08-09] MEDS: Insulin Glargine,Human Rec. Analog 100 Units/ML 3 ML Pen SUBCUT SCH (09:07)
--- NOTE | 2020-08-09 13:07 | PN ---
DATE SEEN: 08/09/2020 SUBJECTIVE: Stephen Delcid is an 79-year-old male in for rehab purposes. Progress has been slow. Dedicated time required. The bleeding from the second left great toe was examined today and free of conflict. Dressings will be applied. OBJECTIVE: VITAL SIGNS: Stable. GENERAL: No complicating issues. LABORATORY DATA: No recent laboratory studies. Blood sugars 298, 266, 140. MEDICATIONS: Reviewed and appropriate. ASSESSMENT: Rehab in place. PLAN: Rehab in place, may be difficult process to get home. /[id number] KIANNA/SHU
[2020-08-09] MEDS: QUEtiapine 25 MG Tab PO SCH (17:47)
--- NOTE | 2020-08-09 19:04 | PCM.SN.2 ---
- Free Text/Narrative Note: swing bed pt after getting stents no new sxs, sitting in room with Dr Mei ordered BUN/cr at end of day shift which are inc'd c/w previous RN Delia asked re new orders on PE lungs are clear, PMI mildly displaced but not to AAL, no heave, trace presacral and thigh edema b/l, 1-2+ pretib edema b/l skin turgor UEs wnl ASSESS: inc'd BUN/creat c/w previous prerenal azotemia PLAN: pt is not in obviously wet or dry, lungs sound clear, in all probability he needs increase in his diuretic which Dr Mei can address in the morning
[2020-08-09] MEDS: Mirtazapine 15 MG Tab PO SCH (20:06)
[2020-08-09] MEDS: Tamsulosin 0.4 MG Cap.ER PO SCH (20:09)
[2020-08-10] MEDS: Insulin Lispro 100 Unit/ML 3 ML KwikPen SUBCUT SCH ×3 (08:28→17:50)
[2020-08-10] MEDS: Apixaban 5 MG Tab PO SCH ×2 (08:35→20:07)
[2020-08-10] MEDS: Rosuvastatin 20 MG Tab PO SCH (08:35)
[2020-08-10] MEDS: hydrALAZINE 25 MG Tab PO SCH ×3 (08:35→20:04)
[2020-08-10] MEDS: cloNIDine 0.1 MG Tab PO SCH ×2 (08:35→20:06)
[2020-08-10] MEDS: Donepezil 10 MG Tab PO SCH (08:35)
[2020-08-10] MEDS: sulfaSALAzine 500 MG Tab PO SCH ×2 (08:36→20:07)
[2020-08-10] MEDS: Calcium Carbonate 500 MG Tablet PO SCH (08:36)
[2020-08-10] MEDS: amLODIPine 10 MG Tab PO SCH (08:36)
[2020-08-10] MEDS: Chondroitin/Glucosamine Cap PO SCH (08:36)
[2020-08-10] MEDS: Clopidogrel 75 MG Tab PO SCH (08:36)
[2020-08-10] MEDS: Vitamin B Complex with Vitamin C Tab PO SCH (08:36)
[2020-08-10] MEDS: Zinc Sulfate 220 MG Cap PO SCH (08:36)
[2020-08-10] MEDS: Tiotropium BR/Olodaterol HCL 4 GM Inhalation Spray 2.5mcg/1 dose; 10 doses INH SCH (08:36)
[2020-08-10] MEDS: Carboxymethylcellulose Sodium 0.5% Ophth Soln 0.4 ML UD Box of 30 EYEBOTH SCH ×4 (08:37→20:07)
[2020-08-10] MEDS: Lutein/Minerals/Vitamin C/Vitamin E Acetate Cap PO SCH (08:38)
[2020-08-10] MEDS: Insulin Glargine,Human Rec. Analog 100 Units/ML 3 ML Pen SUBCUT SCH (08:38)
--- NOTE | 2020-08-10 12:16 | PN ---
DATE SEEN: 08/10/2020 SUBJECTIVE: Mr. Delcid is an 79-year-old male seen today for review. Under rehab. Had a complicated bacteremia which required 7 days of antibiotic therapy until 08/04, non-STEMI, and right coronary artery stent. He also had a subarachnoid hemorrhage. Anticoagulants presently in place. Progress has been slow. Has pretty attentive care and intervention. Has noted some benign painful redness of the left eye. OBJECTIVE: VITAL SIGNS: 36.4, 112/50, 18, 96%. GENERAL: Appears comfortable. Soft spoken. Little spontaneous speech. HEENT: Eye revealed subconjunctival hemorrhage without infectious origins. CHEST: Clear all lung farmer. HEART: No ectopy or murmur. ABDOMEN: Benign. ASSESSMENT: Multiple medical problems under swing bed therapy. PLAN: Continue swing bed therapy, progress slow care in place. /[id number] 1200 KIANNA/SHU
[2020-08-10] MEDS: Polyethylene Glycol 3350 Powder 17 GM Packet PO PRN (15:50)
[2020-08-10] MEDS: QUEtiapine 25 MG Tab PO SCH (17:56)
[2020-08-10] MEDS: Tamsulosin 0.4 MG Cap.ER PO SCH (20:07)
[2020-08-10] MEDS: Mirtazapine 15 MG Tab PO SCH (20:07)
[2020-08-11] MEDS: Insulin Lispro 100 Unit/ML 3 ML KwikPen SUBCUT SCH ×3 (08:19→17:07)
[2020-08-11] MEDS: hydrALAZINE 25 MG Tab PO SCH ×3 (08:24→21:03)
[2020-08-11] MEDS: Lutein/Minerals/Vitamin C/Vitamin E Acetate Cap PO SCH (08:24)
[2020-08-11] MEDS: Chondroitin/Glucosamine Cap PO SCH (08:24)
[2020-08-11] MEDS: Calcium Carbonate 500 MG Tablet PO SCH (08:24)
[2020-08-11] MEDS: amLODIPine 10 MG Tab PO SCH (08:24)
[2020-08-11] MEDS: Apixaban 5 MG Tab PO SCH ×2 (08:24→21:05)
[2020-08-11] MEDS: Donepezil 10 MG Tab PO SCH (08:24)
[2020-08-11] MEDS: Insulin Glargine,Human Rec. Analog 100 Units/ML 3 ML Pen SUBCUT SCH (08:25)
[2020-08-11] MEDS: Zinc Sulfate 220 MG Cap PO SCH (08:25)
[2020-08-11] MEDS: Clopidogrel 75 MG Tab PO SCH (08:25)
[2020-08-11] MEDS: Tiotropium BR/Olodaterol HCL 4 GM Inhalation Spray 2.5mcg/1 dose; 10 doses INH SCH (08:25)
[2020-08-11] MEDS: Rosuvastatin 20 MG Tab PO SCH (08:25)
[2020-08-11] MEDS: cloNIDine 0.1 MG Tab PO SCH ×2 (08:25→21:04)
[2020-08-11] MEDS: sulfaSALAzine 500 MG Tab PO SCH ×2 (08:25→21:07)
[2020-08-11] MEDS: Carboxymethylcellulose Sodium 0.5% Ophth Soln 0.4 ML UD Box of 30 EYEBOTH SCH ×4 (08:25→21:15)
[2020-08-11] MEDS: Vitamin B Complex with Vitamin C Tab PO SCH (08:25)
[2020-08-11] MEDS: Polyethylene Glycol 3350 Powder 17 GM Packet PO SCH (10:59)
--- NOTE | 2020-08-11 13:16 | PN ---
DATE SEEN: 08/11/2020 SUBJECTIVE: Stephen Delcid is an 79-year-old male in swing bed. Progress has been slow. time and energy noted. Mom voices concerns about his chronic cough and moderate sputum. It is not pathologic. Examination today revealed lungs to be clear without issues. Discussed the issue of aging, lung capacity. Also been some droopiness of his right eye, appears to have a mild ptosis, but has good visual farmer. No intervention noted. LABORATORY STUDIES: Glucoses last three; 168, 213, 121. Medications were reviewed and appropriate, does have Artificial Tears for his eyes, medications on board, CVA medicines, hypertensives, Lantus, and Humalog, sliding scale provided. OBJECTIVE: VITAL SIGNS: 36.4, 57 is the pulse, 137/68, 16 is the respiration, O2 saturation 95%. GENERAL: Soft spoken. NECK: Benign. Thyroid small. No JVD. CHEST: Decreased breath sounds, but clear all lung farmer. HEART: Distant heart sounds. Soft murmur. ABDOMEN: Benign. Some venous insufficiency. ASSESSMENT: General decline, improvement slow. PLAN: Medications, care, and treatment appropriate. Liquid Tears for eyes, nothing for his cough. /[id number] [id number] KIANNA/SHU
[2020-08-11] MEDS: QUEtiapine 25 MG Tab PO SCH (18:06)
[2020-08-11] MEDS: Tamsulosin 0.4 MG Cap.ER PO SCH (21:06)
[2020-08-11] MEDS: Mirtazapine 15 MG Tab PO SCH (21:06)
[2020-08-12] MEDS: Insulin Lispro 100 Unit/ML 3 ML KwikPen SUBCUT SCH ×3 (08:20→17:48)
[2020-08-12] MEDS: Apixaban 5 MG Tab PO SCH ×2 (08:22→20:59)
[2020-08-12] MEDS: Chondroitin/Glucosamine Cap PO SCH (08:23)
[2020-08-12] MEDS: Clopidogrel 75 MG Tab PO SCH (08:25)
[2020-08-12] MEDS: Lutein/Minerals/Vitamin C/Vitamin E Acetate Cap PO SCH (08:26)
[2020-08-12] MEDS: amLODIPine 10 MG Tab PO SCH (08:26)
[2020-08-12] MEDS: hydrALAZINE 25 MG Tab PO SCH ×3 (08:27→20:59)
[2020-08-12] MEDS: sulfaSALAzine 500 MG Tab PO SCH ×2 (08:28→20:59)
[2020-08-12] MEDS: cloNIDine 0.1 MG Tab PO SCH ×2 (08:29→20:59)
[2020-08-12] MEDS: Calcium Carbonate 500 MG Tablet PO SCH (08:29)
[2020-08-12] MEDS: Donepezil 10 MG Tab PO SCH (08:30)
[2020-08-12] MEDS: Vitamin B Complex with Vitamin C Tab PO SCH (08:31)
[2020-08-12] MEDS: Rosuvastatin 20 MG Tab PO SCH (08:31)
[2020-08-12] MEDS: Zinc Sulfate 220 MG Cap PO SCH (08:32)
[2020-08-12] MEDS: Polyethylene Glycol 3350 Powder 17 GM Packet PO PRN (08:33)
[2020-08-12] MEDS: Tiotropium BR/Olodaterol HCL 4 GM Inhalation Spray 2.5mcg/1 dose; 10 doses INH SCH (08:33)
[2020-08-12] MEDS: Carboxymethylcellulose Sodium 0.5% Ophth Soln 0.4 ML UD Box of 30 EYEBOTH SCH ×4 (08:34→21:00)
[2020-08-12] MEDS: Insulin Glargine,Human Rec. Analog 100 Units/ML 3 ML Pen SUBCUT SCH (08:43)
[2020-08-12] MEDS ORDERED: Insulin Glargine,Human Rec. Analog 100 Units/ML 3 ML Pen SUBCUT ONE (08:50)
[2020-08-12] MEDS: Polyethylene Glycol 3350 Powder 17 GM Packet PO SCH (08:55)
--- NOTE | 2020-08-12 10:56 | PN ---
DATE SEEN: 08/12/2020 Stephen Delcid is an 79-year-old male in swing bed. Complicating health issues, had a subarachnoid hemorrhage, bacteremia which was treated for 7-day intravenous therapy, non-STEMI. Plavix, Eliquis, and had a stent in right coronary artery. Creatinine problematic. Had a recent toe bleed, second toe, resolved without difficulty. Sugars have been satisfactory. Medications on board including insulin intact. Ability to ambulate self help skills make a long-term swing bed stay less likely. Conference plan for today for planning and discharge. /[id number] KIANNA/SHU
[2020-08-12] MEDS: QUEtiapine 25 MG Tab PO SCH (17:54)
[2020-08-12] MEDS: Tamsulosin 0.4 MG Cap.ER PO SCH (20:59)
[2020-08-12] MEDS: Mirtazapine 15 MG Tab PO SCH (20:59)
[2020-08-13] MEDS: Insulin Lispro 100 Unit/ML 3 ML KwikPen SUBCUT SCH ×3 (07:53→18:13)
[2020-08-13] MEDS: Lutein/Minerals/Vitamin C/Vitamin E Acetate Cap PO SCH (10:00)
[2020-08-13] MEDS: Apixaban 5 MG Tab PO SCH ×2 (10:00→20:24)
[2020-08-13] MEDS: Polyethylene Glycol 3350 Powder 17 GM Packet PO SCH (10:00)
[2020-08-13] MEDS: Carboxymethylcellulose Sodium 0.5% Ophth Soln 0.4 ML UD Box of 30 EYEBOTH SCH ×4 (10:00→22:00)
[2020-08-13] MEDS: Clopidogrel 75 MG Tab PO SCH (10:00)
[2020-08-13] MEDS: hydrALAZINE 25 MG Tab PO SCH ×3 (10:00→20:25)
[2020-08-13] MEDS: amLODIPine 10 MG Tab PO SCH (10:00)
[2020-08-13] MEDS: cloNIDine 0.1 MG Tab PO SCH ×2 (10:00→20:25)
[2020-08-13] MEDS: Rosuvastatin 20 MG Tab PO SCH (10:00)
[2020-08-13] MEDS: Vitamin B Complex with Vitamin C Tab PO SCH (10:00)
[2020-08-13] MEDS: Zinc Sulfate 220 MG Cap PO SCH (10:00)
[2020-08-13] MEDS: Calcium Carbonate 500 MG Tablet PO SCH (10:00)
[2020-08-13] MEDS: Chondroitin/Glucosamine Cap PO SCH (10:00)
[2020-08-13] MEDS: sulfaSALAzine 500 MG Tab PO SCH ×2 (10:00→20:25)
[2020-08-13] MEDS: Donepezil 10 MG Tab PO SCH (10:00)
[2020-08-13] MEDS: Tiotropium BR/Olodaterol HCL 4 GM Inhalation Spray 2.5mcg/1 dose; 10 doses INH SCH (10:00)
[2020-08-13] MEDS: Insulin Glargine,Human Rec. Analog 100 Units/ML 3 ML Pen SUBCUT SCH (10:28)
[2020-08-13] MEDS: QUEtiapine 25 MG Tab PO SCH (17:56)
[2020-08-13] MEDS: Mirtazapine 15 MG Tab PO SCH (20:25)
[2020-08-13] MEDS: Tamsulosin 0.4 MG Cap.ER PO SCH (20:26)
[2020-08-14] MEDS: Tiotropium BR/Olodaterol HCL 4 GM Inhalation Spray 2.5mcg/1 dose; 10 doses INH SCH (08:43)
[2020-08-14] MEDS: Carboxymethylcellulose Sodium 0.5% Ophth Soln 0.4 ML UD Box of 30 EYEBOTH SCH ×4 (08:43→21:18)
[2020-08-14] MEDS: Polyethylene Glycol 3350 Powder 17 GM Packet PO SCH (08:45)
[2020-08-14] MEDS: Insulin Lispro 100 Unit/ML 3 ML KwikPen SUBCUT SCH ×3 (08:46→17:14)
[2020-08-14] MEDS: hydrALAZINE 25 MG Tab PO SCH ×3 (08:47→21:16)
[2020-08-14] MEDS: Zinc Sulfate 220 MG Cap PO SCH (08:48)
[2020-08-14] MEDS: Rosuvastatin 20 MG Tab PO SCH (08:49)
[2020-08-14] MEDS: Donepezil 10 MG Tab PO SCH (08:49)
[2020-08-14] MEDS: Vitamin B Complex with Vitamin C Tab PO SCH (08:49)
[2020-08-14] MEDS: Chondroitin/Glucosamine Cap PO SCH (08:49)
[2020-08-14] MEDS: Calcium Carbonate 500 MG Tablet PO SCH (08:49)
[2020-08-14] MEDS: sulfaSALAzine 500 MG Tab PO SCH ×2 (08:49→21:16)
[2020-08-14] MEDS: cloNIDine 0.1 MG Tab PO SCH ×2 (08:50→21:16)
[2020-08-14] MEDS: amLODIPine 10 MG Tab PO SCH (08:51)
[2020-08-14] MEDS: Apixaban 5 MG Tab PO SCH ×2 (08:51→21:16)
[2020-08-14] MEDS: Lutein/Minerals/Vitamin C/Vitamin E Acetate Cap PO SCH (08:52)
[2020-08-14] MEDS: Clopidogrel 75 MG Tab PO SCH (08:52)
[2020-08-14] MEDS: Insulin Glargine,Human Rec. Analog 100 Units/ML 3 ML Pen SUBCUT SCH (08:53)
[2020-08-14] MEDS: QUEtiapine 25 MG Tab PO SCH (17:16)
[2020-08-14] MEDS: Mirtazapine 15 MG Tab PO SCH (21:16)
[2020-08-14] MEDS: Acetaminophen 325 MG Tab PO PRN (21:17)
[2020-08-14] MEDS: Tamsulosin 0.4 MG Cap.ER PO SCH (21:17)
[2020-08-15] MEDS: Insulin Lispro 100 Unit/ML 3 ML KwikPen SUBCUT SCH ×3 (08:25→17:55)
[2020-08-15] MEDS: hydrALAZINE 25 MG Tab PO SCH ×3 (09:26→21:20)
[2020-08-15] MEDS: Tiotropium BR/Olodaterol HCL 4 GM Inhalation Spray 2.5mcg/1 dose; 10 doses INH SCH (09:26)
[2020-08-15] MEDS: Carboxymethylcellulose Sodium 0.5% Ophth Soln 0.4 ML UD Box of 30 EYEBOTH SCH ×4 (09:26→21:22)
[2020-08-15] MEDS: cloNIDine 0.1 MG Tab PO SCH ×2 (09:27→21:21)
[2020-08-15] MEDS: Lutein/Minerals/Vitamin C/Vitamin E Acetate Cap PO SCH (09:27)
[2020-08-15] MEDS: Clopidogrel 75 MG Tab PO SCH (09:28)
[2020-08-15] MEDS: Vitamin B Complex with Vitamin C Tab PO SCH (09:28)
[2020-08-15] MEDS: Donepezil 10 MG Tab PO SCH (09:28)
[2020-08-15] MEDS: Apixaban 5 MG Tab PO SCH ×2 (09:29→21:21)
[2020-08-15] MEDS: Calcium Carbonate 500 MG Tablet PO SCH (09:31)
[2020-08-15] MEDS: amLODIPine 10 MG Tab PO SCH (09:31)
[2020-08-15] MEDS: Rosuvastatin 20 MG Tab PO SCH (09:31)
[2020-08-15] MEDS: Chondroitin/Glucosamine Cap PO SCH (09:31)
[2020-08-15] MEDS: Zinc Sulfate 220 MG Cap PO SCH (09:32)
[2020-08-15] MEDS: sulfaSALAzine 500 MG Tab PO SCH ×2 (09:32→21:21)
[2020-08-15] MEDS: Polyethylene Glycol 3350 Powder 17 GM Packet PO SCH (09:33)
[2020-08-15] MEDS: Insulin Glargine,Human Rec. Analog 100 Units/ML 3 ML Pen SUBCUT SCH (09:33)
--- NOTE | 2020-08-15 12:26 | PCM.PN ---
- General Info Date of Service: 08/15/20 Admission Dx/Problem (Free Text): Admission Diagnosis/Problem Admission Diagnosis/Problem Rehabilitation therapy Subjective Update: Patient states that he is feeling better today and that he does not have any pain specifically in his feet Functional Status: Reports: Pain Controlled, Tolerating Diet, Urinating - Review of Systems General: Reports: Weakness, Fatigue, Malaise Skin: Reports: Other (Diabetic ulcers bilateral toes) Neurological: Reports: Numbness, Difficulty Walking, Weakness - Patient Data Vitals - Most Recent: Last Vital Signs Temp 36.3 C 08/14/20 21:00 Pulse 66 08/14/20 21:00 Resp 18 08/14/20 21:00 BP 160/60 H 08/15/20 09:31 Pulse Ox 94 L 08/14/20 21:00 Weight - Most Recent: 151.5 kg Lab Results Last 24 Hours: Laboratory Results - last 24 hr 08/14/20 08/14/20 08/15/20 Range/Units 16:42 21:05 05:39 POC Glucose 178 H 176 H 97 (80-116) mg/dL 08/15/20 Range/Units 11:23 POC Glucose 158 H (80-116) mg/dL Med Orders - Current: Current Medications Acetaminophen (Acetaminophen 325 Mg Tab) 650 mg PO Q4H PRN PRN Reason: MILD PAIN Last Admin: 08/14/20 21:17 Dose: 650 mg Documented by: Albuterol (Albuterol 8 Gm Inhaler) 0 gm INH Q4H PRN PRN Reason: SHORTNESS OF BREATH/WHEEZE Albuterol/Ipratropium (Albuterol/Ipratropium 3.0-0.5 Mg/3 Ml Neb Soln) 3 ml INH Q4H PRN PRN Reason: SHORTNESS OF BREATH/WHEEZE Amlodipine Besylate (Amlodipine 10 Mg Tab) 10 mg PO DAILY [facility] Last Admin: 08/15/20 09:31 Dose: 10 mg Documented by: Apixaban (Apixaban 5 Mg Tab) 2.5 mg PO BID [facility] Last Admin: 08/15/20 09:29 Dose: 2.5 mg Documented by: Artificial Tears (Carboxymethylcellulose Sodium 0.5% Ophth Soln 0.4 Ml Ud Box Of 30) 0 each EYEBOTH QID [facility] Last Admin: 08/15/20 09:26 Dose: 1 drop Documented by: Bisacodyl (Bisacodyl 10 Mg Supp) 10 mg RECTAL DAILY PRN PRN Reason: Constipation Last Admin: 08/12/20 10:33 Dose: 10 mg Documented by: Calcium Carbonate/Glycine (Calcium Carbonate 500 Mg Tab.Chew) 500 mg PO QID PRN PRN Reason: Indigestion Calcium Carbonate/Glycine (Calcium Carbonate 500 Mg Tablet) 500 mg PO DAILY [facility] Last Admin: 08/15/20 09:31 Dose: 500 mg Documented by: Clonidine HCl (Clonidine 0.1 Mg Tab) 0.1 mg PO BID [facility] Last Admin: 08/15/20 09:27 Dose: 0.1 mg Documented by: Clopidogrel Bisulfate (Clopidogrel 75 Mg Tab) 75 mg PO DAILY [facility] Last Admin: 08/15/20 09:28 Dose: 75 mg Documented by: Dextrose/Water (50% Dextrose In Water 50 Ml Syringe) 50 ml IVPUSH ASDIRECTED PRN PRN Reason: Hypoglycemia Donepezil HCl (Donepezil 10 Mg Tab) 20 mg PO DAILY [facility] Last Admin: 08/15/20 09:28 Dose: 20 mg Documented by: Glucagon (Glucagon,Human Recombinant 1 Mg Vial) 1 mg IM ASDIRECTED PRN PRN Reason: Hypoglycemia Glucosamine/Chondroitin (Chondroitin/Glucosamine Cap) 1 cap PO DAILY [facility] Last Admin: 08/15/20 09:31 Dose: 1 cap Documented by: Hydralazine HCl (Hydralazine 25 Mg Tab) 75 mg PO TID [facility] Last Admin: 08/15/20 09:26 Dose: 75 mg Documented by: Insulin Glargine (Insulin Glargine,Human Rec. Analog 100 Units/Ml 3 Ml Pen) 35 units SUBCUT DAILY [facility] Last Admin: 08/15/20 09:33 Dose: 35 unit Documented by: Insulin Human Lispro (Insulin Lispro 100 Unit/Ml 3 Ml Kwikpen) 0 unit SUBCUT TIDMEALS [facility]; Protocol Last Admin: 08/15/20 08:25 Dose: Not Given Documented by: Melatonin (Melatonin 3 Mg Tab) 6 mg PO BEDTIME PRN PRN Reason: Insomnia Last Admin: 08/07/20 22:05 Dose: 6 mg Documented by: Mirtazapine (Mirtazapine 15 Mg Tab) 15 mg PO BEDTIME [facility] Last Admin: 08/14/20 21:16 Dose: 15 mg Documented by: Multivitamins (Vitamin B Complex With Vitamin C Tab) 1 each PO DAILY [facility] Last Admin: 08/15/20 09:28 Dose: 1 each Documented by: Nitroglycerin (Nitroglycerin 0.4 Mg Tab.Sl) 0.4 mg SL Q5M PRN PRN Reason: Chest Pain Ondansetron HCl (Ondansetron 4 Mg Tab.Dis) 4 mg PO Q6H PRN PRN Reason: nausea, able to take PO Polyethylene Glycol (Polyethylene Glycol 3350 Powder 17 Gm Packet) 17 gm PO DAILY PRN PRN Reason: Constipation Last Admin: 08/12/20 08:33 Dose: 17 gm Documented by: Polyethylene Glycol (Polyethylene Glycol 3350 Powder 17 Gm Packet) 17 gm PO DAILY [facility] Last Admin: 08/15/20 09:33 Dose: 17 gm Documented by: Quetiapine Fumarate (Quetiapine 25 Mg Tab) 37.5 mg PO DAILY@1800 [facility] Last Admin: 08/14/20 17:16 Dose: 37.5 mg Documented by: Rosuvastatin Calcium (Rosuvastatin 20 Mg Tab) 40 mg PO DAILY [facility] Last Admin: 08/15/20 09:31 Dose: 40 mg Documented by: Sulfasalazine (Sulfasalazine 500 Mg Tab) 500 mg PO BID [facility] Last Admin: 08/15/20 09:32 Dose: 500 mg Documented by: Tamsulosin HCl (Tamsulosin 0.4 Mg Cap.Er) 0.4 mg PO BEDTIME [facility] Last Admin: 08/14/20 21:17 Dose: 0.4 mg Documented by: Torsemide (Torsemide 20 Mg Tab) 20 mg PO DAILY [facility] Vit C/Vit E/Zinc/Copper/Lutein (Lutein/Minerals/Vitamin C/Vitamin E Acetate Cap) 1 each PO DAILY [facility] Last Admin: 08/15/20 09:27 Dose: 1 each Documented by: Zinc Sulfate (Zinc Sulfate 220 Mg Cap) 220 mg PO DAILY [facility] Last Admin: 08/15/20 09:32 Dose: 220 mg Documented by: Discontinued Medications Ceftriaxone Sodium (Ceftriaxone 2 Gm Vial) 2 gm IVPUSH DAILY@1600 [facility] Stop: 08/04/20 16:01 Last Admin: 08/04/20 16:44 Dose: 2 gm Documented by: Loperamide HCl (Loperamide 2 Mg Cap) 2 mg PO BID [facility] Last Admin: 08/09/20 08:51 Dose: 2 mg Documented by: Metoprolol Tartrate (Metoprolol Tartrate 25 Mg Tab) 12.5 mg PO BID [facility] Last Admin: 08/04/20 08:20 Dose: 12.5 mg Documented by: Comments:: Patient was sitting in a wheelchair next to his bed eating lunch when I examined him. He answered questions appropriately but appears lethargic - Exam Quality Assessment: Supplemental Oxygen, DVT Prophylaxis, Skin Breakdown General: Alert, Cooperative Extremities: Pedal Edema Wound/Incisions: Other (Bilateral feet, second digits, distal, diabetic ulcers) Neurological: No New Focal Deficit Psy/Mental Status: Alert - Patient Data Lab Results Last 24 hrs: Laboratory Results - last 24 hr 08/14/20 08/14/20 08/15/20 Range/Units 16:42 21:05 05:39 POC Glucose 178 H 176 H 97 (80-116) mg/dL 08/15/20 Range/Units 11:23 POC Glucose 158 H (80-116) mg/dL Result Diagrams: 08/09/20 18:30 Sepsis Event Note - Evaluation Sepsis Screening Result: No Definite Risk - Focused Exam Vital Signs: Vital Signs BP 08/15/20 09:31 160/60 H 08/15/20 09:27 160/60 H 08/15/20 09:26 160/60 H - Problem List & Annotations (1) Bacteremia due to Streptococcus SNOMED Code(s): 112547842863 Code(s): R78.81 - BACTEREMIA; B95.5 - UNSP STREPTOCOCCUS THE CAUSE OF DISEASES CLASSD [id number] Status: Acute Current Visit: Yes Annotation/Comment:: Complete antibiotic course of Rocephin 4.28 (2) NSTEMI (non-ST elevated myocardial infarction) SNOMED Code(s): 18634987 Code(s): I21.4 - NON-ST ELEVATION (NSTEMI) MYOCARDIAL INFARCTION Status: Acute Current Visit: Yes Onset Date: ~07/2020 (3) S/P right coronary artery (RCA) stent placement SNOMED Code(s): 12530710784281, 30286582603314 Code(s): Z95.5 - PRESENCE OF CORONARY ANGIOPLASTY IMPLANT AND GRAFT Status: Acute Current Visit: Yes (4) Subarachnoid hemorrhage SNOMED Code(s): 317192184 Code(s): I60.9 - NONTRAUMATIC SUBARACHNOID HEMORRHAGE, UNSPECIFIED Status: Chronic Current Visit: Yes Onset Date: ~07/2020 (5) Weakness SNOMED Code(s): 39684661 Code(s): R53.1 - WEAKNESS Status: Chronic Current Visit: Yes (6) Afib SNOMED Code(s): 15913065 Code(s): I48.91 - UNSPECIFIED ATRIAL FIBRILLATION Status: Chronic Current Visit: No (7) CHF (congestive heart failure) SNOMED Code(s): 13308632 Code(s): I50.9 - HEART FAILURE, UNSPECIFIED Status: Chronic Current Visit: No (8) Functional gait abnormality SNOMED Code(s): 33326425929665 Code(s): R26.89 - OTHER ABNORMALITIES OF GAIT AND MOBILITY Status: Chronic Current Visit: No (9) COPD with asthma SNOMED Code(s): 86030910091369645 Code(s): J44.9 - CHRONIC OBSTRUCTIVE PULMONARY DISEASE, UNSPECIFIED Status: Chronic Current Visit: No (10) Chronic atrial fibrillation SNOMED Code(s): 990162304 Code(s): I48.20 - CHRONIC ATRIAL FIBRILLATION, UNSPECIFIED Status: Chronic Current Visit: No (11) Hyperlipidemia SNOMED Code(s): 38255862 Code(s): E78.5 - HYPERLIPIDEMIA, UNSPECIFIED Status: Chronic Current Vi sit: No (12) Hypertension SNOMED Code(s): 82969406 Code(s): I10 - ESSENTIAL (PRIMARY) HYPERTENSION Status: Chronic Current Visit: No (13) Memory loss SNOMED Code(s): 89400498 Code(s): R41.3 - OTHER AMNESIA Status: Chronic Current Visit: No (14) Type 2 diabetes mellitus SNOMED Code(s): 43965395 Code(s): E11.9 - TYPE 2 DIABETES MELLITUS WITHOUT COMPLICATIONS Status: Chronic Current Visit: No Qualifiers: Diabetes mellitus watcher automat [employer] goods insulin use: with shelter use (15) Fluid retention SNOMED Code(s): 89403683 Code(s): R60.9 - EDEMA, UNSPECIFIED Status: Chronic Current Visit: No (16) Diabetic foot ulcer SNOMED Code(s): 837722431 Code(s): E11.621 - TYPE 2 DIABETES MELLITUS WITH FOOT ULCER; L97.509 - NON- PRESSURE CHRONIC ULCER OTH PRT UNSP FOOT W UNSP SEVERITY Status: Acute Current Visit: Yes (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 Admit to swing bed for rehab services due to weakness. 2. Weakness/deconditioning s/p NSTEMI, RCA stent placement, Subarachnoid hemorrhage: PT/OT elevate & treat. 3. Bacteremia 2/2 strep: Rocephin 2 g IV daily at 1600, last dose 08/04. 4. NSTEMI, RCA stent placement: cardiac rehab went appropriate, Eliquis 2.5 mg bid, Plavix 75 mg daily. 5. DM: Lantus 35 units daily, Humalog low dose sliding scale. Accuchecks qidac&hs. 6. Diet: Diabetic diet. 7. Activity: up with assistance, up to chair. 8. DVT prophylaxis: Eliquis & Plavix. 9. CODE STATUS: DNR/DNI verified by his son. 10. Patient developed necrotic areas on the distal tip of the bilateral second digit toes and has significant bilateral lower extremity edema. Start diuretics with Torsemide, 20 mg daily and monitor with daily weights.
[2020-08-15] MEDS: Torsemide 20 MG Tab PO SCH (14:30)
[2020-08-15] MEDS: QUEtiapine 25 MG Tab PO SCH (17:57)
[2020-08-15] MEDS: Tamsulosin 0.4 MG Cap.ER PO SCH (21:20)
[2020-08-15] MEDS: Mirtazapine 15 MG Tab PO SCH (21:21)
[2020-08-16] MEDS: Insulin Lispro 100 Unit/ML 3 ML KwikPen SUBCUT SCH ×3 (08:00→18:43)
[2020-08-16] MEDS: hydrALAZINE 25 MG Tab PO SCH ×3 (09:41→21:53)
[2020-08-16] MEDS: Insulin Glargine,Human Rec. Analog 100 Units/ML 3 ML Pen SUBCUT SCH (09:42)
[2020-08-16] MEDS: Donepezil 10 MG Tab PO SCH (09:47)
[2020-08-16] MEDS: cloNIDine 0.1 MG Tab PO SCH ×2 (09:48→21:57)
[2020-08-16] MEDS: Zinc Sulfate 220 MG Cap PO SCH (09:48)
[2020-08-16] MEDS: Carboxymethylcellulose Sodium 0.5% Ophth Soln 0.4 ML UD Box of 30 EYEBOTH SCH ×4 (09:49→21:59)
[2020-08-16] MEDS: Lutein/Minerals/Vitamin C/Vitamin E Acetate Cap PO SCH (09:50)
[2020-08-16] MEDS: Rosuvastatin 20 MG Tab PO SCH (09:51)
[2020-08-16] MEDS: Calcium Carbonate 500 MG Tablet PO SCH (09:52)
[2020-08-16] MEDS: Vitamin B Complex with Vitamin C Tab PO SCH (09:52)
[2020-08-16] MEDS: amLODIPine 10 MG Tab PO SCH (09:53)
[2020-08-16] MEDS: Clopidogrel 75 MG Tab PO SCH (09:53)
[2020-08-16] MEDS: Tiotropium BR/Olodaterol HCL 4 GM Inhalation Spray 2.5mcg/1 dose; 10 doses INH SCH (09:54)
[2020-08-16] MEDS: sulfaSALAzine 500 MG Tab PO SCH ×2 (09:55→21:56)
[2020-08-16] MEDS: Chondroitin/Glucosamine Cap PO SCH (09:56)
[2020-08-16] MEDS: Apixaban 5 MG Tab PO SCH ×2 (09:57→21:54)
[2020-08-16] MEDS: Polyethylene Glycol 3350 Powder 17 GM Packet PO SCH (09:59)
[2020-08-16] MEDS: Torsemide 20 MG Tab PO SCH (10:04)
--- NOTE | 2020-08-16 10:44 | PCM.PN ---
- General Info Date of Service: 08/16/20 Admission Dx/Problem (Free Text): Admission Diagnosis/Problem Admission Diagnosis/Problem Rehabilitation therapy Subjective Update: Nursing staff and family report altered mental status with the patient being less responsive lethargic Functional Status: Reports: New Symptoms - Review of Systems General: Reports: Weakness, Fatigue, Malaise HEENT: Reports: No Symptoms Pulmonary: Reports: No Symptoms Cardiovascular: Reports: No Symptoms Gastrointestinal: Reports: No Symptoms Genitourinary: Reports: Incontinence Skin: Reports: Other (Diabetic ulcers bilateral second toes) Neurological: Reports: Confusion, Dizziness, Change in Speech Psychiatric: Reports: Confusion - Patient Data Vitals - Most Recent: Last Vital Signs Temp 36.4 C 08/15/20 21:00 Pulse 60 08/15/20 21:00 Resp 18 08/15/20 21:00 BP 144/66 H 08/16/20 09:53 Pulse Ox 97 08/15/20 21:00 Weight - Most Recent: 152.946 kg Lab Results Last 24 Hours: Laboratory Results - last 24 hr 08/15/20 08/15/20 08/15/20 Range/Units 11:23 16:55 21:07 Sodium (135-145) mmol/L Potassium (3.5-5.3) mmol/L Chloride (100-110) mmol/L Carbon Dioxide (21-32) mmol/L BUN (7-18) mg/dL Creatinine (0.70-1.30) mg/dL Est Cr Clr Drug Dosing mL/min Estimated GFR (MDRD) (>60) BUN/Creatinine Ratio (9-20) Glucose (80-116) mg/dL POC Glucose 158 H 153 H 52 L D (80-116) mg/dL Calcium (8.6-10.2) mg/dL 08/15/20 08/16/20 Range/Units 22:00 06:30 Sodium 141 (135-145) mmol/L Potassium 4.7 (3.5-5.3) mmol/L Chloride 103 D (100-110) mmol/L Carbon Dioxide 27 (21-32) mmol/L BUN 107 H* (7-18) mg/dL Creatinine 4.6 H* (0.70-1.30) mg/dL Est Cr Clr Drug Dosing 17.10 mL/min Estimated GFR (MDRD) 12 L (>60) BUN/Creatinine Ratio 23.3 H (9-20) Glucose 63 L D (80-116) mg/dL POC Glucose 114 (80-116) mg/dL Calcium 8.2 L (8.6-10.2) mg/dL Los Results Last 24 Hours: Microbiology 08/16/20 08:30 Stool Occult Blood (LOS) - Final Stool / Feces Med Orders - Current: Current Medications Acetaminophen (Acetaminophen 325 Mg Tab) 650 mg PO Q4H PRN PRN Reason: MILD PAIN Last Admin: 08/14/20 21:17 Dose: 650 mg Documented by: Albuterol (Albuterol 8 Gm Inhaler) 0 gm INH Q4H PRN PRN Reason: SHORTNESS OF BREATH/WHEEZE Albuterol/Ipratropium (Albuterol/Ipratropium 3.0-0.5 Mg/3 Ml Neb Soln) 3 ml INH Q4H PRN PRN Reason: SHORTNESS OF BREATH/WHEEZE Amlodipine Besylate (Amlodipine 10 Mg Tab) 10 mg PO DAILY [facility] Last Admin: 08/16/20 09:53 Dose: 10 mg Documented by: Apixaban (Apixaban 5 Mg Tab) 2.5 mg PO BID [facility] Last Admin: 08/16/20 09:57 Dose: 2.5 mg Documented by: Artificial Tears (Carboxymethylcellulose Sodium 0.5% Ophth Soln 0.4 Ml Ud Box Of 30) 0 each EYEBOTH QID [facility] Last Admin: 08/16/20 09:49 Dose: 1 drop Documented by: Bisacodyl (Bisacodyl 10 Mg Supp) 10 mg RECTAL DAILY PRN PRN Reason: Constipation Last Admin: 08/12/20 10:33 Dose: 10 mg Documented by: Calcium Carbonate/Glycine (Calcium Carbonate 500 Mg Tab.Chew) 500 mg PO QID PRN PRN Reason: Indigestion Calcium Carbonate/Glycine (Calcium Carbonate 500 Mg Tablet) 500 mg PO DAILY [facility] Last Admin: 08/16/20 09:52 Dose: 500 mg Documented by: Clonidine HCl (Clonidine 0.1 Mg Tab) 0.1 mg PO BID [facility] Last Admin: 08/16/20 09:48 Dose: 0.1 mg Documented by: Clopidogrel Bisulfate (Clopidogrel 75 Mg Tab) 75 mg PO DAILY [facility] Last Admin: 08/16/20 09:53 Dose: 75 mg Documented by: Dextrose/Water (50% Dextrose In Water 50 Ml Syringe) 50 ml IVPUSH ASDIRECTED PRN PRN Reason: Hypoglycemia Donepezil HCl (Donepezil 10 Mg Tab) 20 mg PO DAILY [facility] Last Admin: 08/16/20 09:47 Dose: 20 mg Documented by: Glucagon (Glucagon,Human Recombinant 1 Mg Vial) 1 mg IM ASDIRECTED PRN PRN Reason: Hypoglycemia Glucosamine/Chondroitin (Chondroitin/Glucosamine Cap) 1 cap PO DAILY [facility] Last Admin: 08/16/20 09:56 Dose: 1 cap Documented by: Hydralazine HCl (Hydralazine 25 Mg Tab) 75 mg PO TID [facility] Last Admin: 08/16/20 09:41 Dose: 75 mg Documented by: Insulin Glargine (Insulin Glargine,Human Rec. Analog 100 Units/Ml 3 Ml Pen) 35 units SUBCUT DAILY [facility] Last Admin: 08/16/20 09:42 Dose: 35 unit Documented by: Insulin Human Lispro (Insulin Lispro 100 Unit/Ml 3 Ml Kwikpen) 0 unit SUBCUT TIDMEALS [facility]; Protocol Last Admin: 08/16/20 08:00 Dose: Not Given Documented by: Melatonin (Melatonin 3 Mg Tab) 6 mg PO BEDTIME PRN PRN Reason: Insomnia Last Admin: 08/07/20 22:05 Dose: 6 mg Documented by: Mirtazapine (Mirtazapine 15 Mg Tab) 15 mg PO BEDTIME [facility] Last Admin: 08/15/20 21:21 Dose: 15 mg Documented by: Multivitamins (Vitamin B Complex With Vitamin C Tab) 1 each PO DAILY [facility] Last Admin: 08/16/20 09:52 Dose: 1 each Documented by: Nitroglycerin (Nitroglycerin 0.4 Mg Tab.Sl) 0.4 mg SL Q5M PRN PRN Reason: Chest Pain Ondansetron HCl (Ondansetron 4 Mg Tab.Dis) 4 mg PO Q6H PRN PRN Reason: nausea, able to take PO Polyethylene Glycol (Polyethylene Glycol 3350 Powder 17 Gm Packet) 17 gm PO DAILY PRN PRN Reason: Constipation Last Admin: 08/12/20 08:33 Dose: 17 gm Documented by: Polyethylene Glycol (Polyethylene Glycol 3350 Powder 17 Gm Packet) 17 gm PO DAILY [facility] Last Admin: 08/16/20 09:59 Dose: 17 gm Documented by: Quetiapine Fumarate (Quetiapine 25 Mg Tab) 37.5 mg PO DAILY@1800 [facility] Last Admin: 08/15/20 17:57 Dose: 37.5 mg Documented by: Rosuvastatin Calcium (Rosuvastatin 20 Mg Tab) 40 mg PO DAILY [facility] Last Admin: 08/16/20 09:51 Dose: 40 mg Documented by: Sulfasalazine (Sulfasalazine 500 Mg Tab) 500 mg PO BID [facility] Last Admin: 08/16/20 09:55 Dose: 500 mg Documented by: Tamsulosin HCl (Tamsulosin 0.4 Mg Cap.Er) 0.4 mg PO BEDTIME [facility] Last Admin: 08/15/20 21:20 Dose: 0.4 mg Documented by: Torsemide (Torsemide 20 Mg Tab) 20 mg PO DAILY [facility] Last Admin: 08/16/20 10:04 Dose: 20 mg Documented by: Vit C/Vit E/Zinc/Copper/Lutein (Lutein/Minerals/Vitamin C/Vitamin E Acetate Cap) 1 each PO DAILY [facility] Last Admin: 08/16/20 09:50 Dose: 1 each Documented by: Zinc Sulfate (Zinc Sulfate 220 Mg Cap) 220 mg PO DAILY [facility] Last Admin: 08/16/20 09:48 Dose: 220 mg Documented by: Discontinued Medications Ceftriaxone Sodium (Ceftriaxone 2 Gm Vial) 2 gm IVPUSH DAILY@1600 [facility] Stop: 08/04/20 16:01 Last Admin: 08/04/20 16:44 Dose: 2 gm Documented by: Loperamide HCl (Loperamide 2 Mg Cap) 2 mg PO BID [facility] Last Admin: 08/09/20 08:51 Dose: 2 mg Documented by: Metoprolol Tartrate (Metoprolol Tartrate 25 Mg Tab) 12.5 mg PO BID [facility] Last Admin: 08/04/20 08:20 Dose: 12.5 mg Documented by: Comments:: Patient is much less responsive, unable to answer questions or follow commands - Exam Quality Assessment: Supplemental Oxygen, DVT Prophylaxis, Skin Breakdown General: Lethargic Lungs: Crackles Cardiovascular: Regular Rhythm, Bradycardia Extremities: Increased Warmth, Other (Increasing lower extremity swelling and edema) Skin: Warm, Dry Wound/Incisions: Dressing Dry and Intact Psy/Mental Status: Other (Significant lethargy, mildly responsive) - Patient Data Lab Results Last 24 hrs: Laboratory Results - last 24 hr 0508/15/20 08/15/20 Range/Units 11:23 16:55 21:07 Sodium (135-145) mmol/L Potassium (3.5-5.3) mmol/L Chloride (100-110) mmol/L Carbon Dioxide (21-32) mmol/L BUN (7-18) mg/dL Creatinine (0.70-1.30) mg/dL Est Cr Clr Drug Dosing mL/min Estimated GFR (MDRD) (>60) BUN/Creatinine Ratio (9-20) Glucose (80-116) mg/dL POC Glucose 158 H 153 H 52 L D (80-116) mg/dL Calcium (8.6-10.2) mg/dL 08/15/20 08/16/20 Range/Units 22:00 06:30 Sodium 141 (135-145) mmol/L Potassium 4.7 (3.5-5.3) mmol/L Chloride 103 D (100-110) mmol/L Carbon Dioxide 27 (21-32) mmol/L BUN 107 H* (7-18) mg/dL Creatinine 4.6 H* (0.70-1.30) mg/dL Est Cr Clr Drug Dosing 17.10 mL/min Estimated GFR (MDRD) 12 L (>60) BUN/Creatinine Ratio 23.3 H (9-20) Glucose 63 L D (80-116) mg/dL POC Glucose 114 (80-116) mg/dL Calcium 8.2 L (8.6-10.2) mg/dL Result Diagrams: 08/16/20 06:30 Los Results Last 24 hrs: Microbiology 08/16/20 08:30 Stool Occult Blood (LOS) - Final Stool / Feces Sepsis Event Note - Evaluation Sepsis Screening Result: No Definite Risk - Focused Exam Vital Signs: Vital Signs BP 08/16/20 09:53 144/66 H 08/16/20 09:48 144/66 H 08/16/20 09:41 144/66 H - Problem List & Annotations (1) Bacteremia due to Streptococcus SNOMED Code(s): 783029736506 Code(s): R78.81 - BACTEREMIA; B95.5 - UNSP STREPTOCOCCUS THE CAUSE OF DISEASES CLASSD [id number] Status: Acute Current Visit: Yes Annotation/Comment:: Complete antibiotic course of Rocephin 4.28 (2) NSTEMI (non-ST elevated myocardial infarction) SNOMED Code(s): 51880535 Code(s): I21.4 - NON-ST ELEVATION (NSTEMI) MYOCARDIAL INFARCTION Status: Acute Current Visit: Yes Onset Date: ~07/2020 (3) S/P right coronary artery (RCA) stent placement SNOMED Code(s): 39904109274700, 03252776399534 Code(s): Z95.5 - PRESENCE OF CORONARY ANGIOPLASTY IMPLANT AND GRAFT Status: Acute Current Visit: Yes (4) Subarachnoid hemorrhage SNOMED Code(s): 293703061 Code(s): I60.9 - NONTRAUMATIC SUBARACHNOID HEMORRHAGE, UNSPECIFIED Status: Chronic Current Visit: Yes Onset Date: ~07/2020 (5) Weakness SNOMED Code(s): 13740590 Code(s): R53.1 - WEAKNESS Status: Chronic Current Visit: Yes (6) Afib SNOMED Code(s): 36089389 Code(s): I48.91 - UNSPECIFIED ATRIAL FIBRILLATION Status: Chronic Current Visit: No (7) CHF (congestive heart failure) SNOMED Code(s): 01099045 Code(s): I50.9 - HEART FAILURE, UNSPECIFIED Status: Chronic Current Visit: No (8) Functional gait abnormality SNOMED Code(s): 13493562629135 Code(s): R26.89 - OTHER ABNORMALITIES OF GAIT AND MOBILITY Status: Chronic Current Visit: No (9) COPD with asthma SNOMED Code(s): 08834287067946544 Code(s): J44.9 - CHRONIC OBSTRUCTIVE PULMONARY DISEASE, UNSPECIFIED Status: Chronic Current Visit: No (10) Chronic atrial fibrillation SNOMED Code(s): 950058683 Code(s): I48.20 - CHRONIC ATRIAL FIBRILLATION, UNSPECIFIED Status: Chronic Current Visit: No (11) Hyperlipidemia SNOMED Code(s): 68599062 Code(s): E78.5 - HYPERLIPIDEMIA, UNSPECIFIED Status: Chronic Current Visit: No (12) Hypertension SNOMED Code(s): 32545465 Code(s): I10 - ESSENTIAL (PRIMARY) HYPERTENSION Status: Chronic Current Visit: No (13) Memory loss SNOMED Code(s): 23830788 Code(s): R41.3 - OTHER AMNESIA Status: Chronic Current Visit: No (14) Type 2 diabetes mellitus SNOMED Code(s): 76997844 Code(s): E11.9 - TYPE 2 DIABETES MELLITUS WITHOUT COMPLICATIONS Status: Chronic Current Visit: No Qualifiers: Diabetes mellitus long term acute care registered nurse insulin use: with half-way use (15) Fluid retention SNOMED Code(s): 30164577 Code(s): R60.9 - EDEMA, UNSPECIFIED Status: Chronic Current Visit: No (16) Diabetic foot ulcer SNOMED Code(s): 982817248 Code(s): E11.621 - TYPE 2 DIABETES MELLITUS WITH FOOT ULCER; L97.509 - NON- PRESSURE CHRONIC ULCER OTH PRT UNSP FOOT W UNSP SEVERITY Status: Acute Current Visit: Yes (17) long term acute care registered nurse current use of anticoagulant SNOMED Code(s): 662537460 Code(s): Z79.01 - JAIL (CURRENT) USE OF ANTICOAGULANTS Status: Chronic Current Visit: No (18) Altered mental status SNOMED Code(s): 759859981 Code(s): R41.82 - ALTERED MENTAL STATUS, UNSPECIFIED Status: Acute Current Visit: Yes (19) EDVANTE (acute kidney injury) SNOMED Code(s): 61880488, 21484851 Code(s): N17.9 - ACUTE KIDNEY FAILURE, UNSPECIFIED Status: Acute Current Visit: Yes - Problem List Review Problem List Initiated/Reviewed/Updated: Yes - My Orders Last 24 Hours: My Active Orders 08/15/20 10:22 Dressing Change [Wound Care] [] DAILY 08/15/20 12:18 Weight Daily [Height and Weight] [] DAILY 08/15/20 12:30 Torsemide [Demadex] 20 mg PO DAILY 08/16/20 10:19 UA W/O MICROSCOPIC [URIN] Routine 08/16/20 10:21 Bladder Scan [] ASDIRECTED - Plan Plan:: 1. Admit to swing bed for rehab services due to weakness. 2. Weakness/deconditioning s/p NSTEMI, RCA stent placement, Subarachnoid hemorrhage: PT/OT elevate & treat. 3. Bacteremia 2/2 strep: Rocephin 2 g IV daily at 1600, last dose 08/04. 4. NSTEMI, RCA stent placement: cardiac rehab went appropriate, Eliquis 2.5 mg bid, Plavix 75 mg daily. 5. DM: Lantus 35 units daily, Humalog low dose sliding scale. Accuchecks qidac&hs. 6. Diet: Diabetic diet. 7. Activity: up with assistance, up to chair. 8. DVT prophylaxis: Eliquis & Plavix. 9. CODE STATUS: DNR/DNI verified by his son. 10. Patient developed necrotic areas on the distal tip of the bilateral second digit toes and has significant bilateral lower extremity edema. Start diuretics with Torsemide, 20 mg daily and monitor with daily weights. 08/16/2020: AMS, DEVANTE -urinalysis, bladder scan, urinary catheter I spoke with the patient's and his son. His son is the healthcare decision maker/power of immigration attorney. We will rule out delirium secondary to urinary tract infection and/or bacteremia. If patient symptoms do not improve we will perform a CAT scan to direct further decision-making. Note that the healthcare directive decision-maker, his son, and his stated that they do not want significant intervention such as neurosurgery.
[2020-08-16] MEDS ORDERED: Lidocaine 2% HCl 6 ML JEL.PF.APP ONE (10:57)
[2020-08-16] MEDS: QUEtiapine 25 MG Tab PO SCH (18:44)
[2020-08-16] MEDS: Tamsulosin 0.4 MG Cap.ER PO SCH (21:55)
[2020-08-16] MEDS: Mirtazapine 15 MG Tab PO SCH (21:58)
[2020-08-17] MEDS ORDERED: cefTRIAXone 1 GM in Sodium Chloride 0.9% 50 ML IV SCH (04:00)
[2020-08-17] MEDS: Sodium Chloride 0.9% 10 ML Syringe FLUSH PRN ×2 (04:07→17:16)
[2020-08-17] MEDS ORDERED: Glucagon,Human Recombinant 1 MG Vial IM PRN (06:52)
[2020-08-17] MEDS ORDERED: 50% Dextrose in Water 50 ML Syringe IVPUSH PRN (06:52)
[2020-08-17] MEDS: Insulin Lispro 100 Unit/ML 3 ML KwikPen SUBCUT SCH ×3 (08:06→17:21)
[2020-08-17] MEDS: hydrALAZINE 25 MG Tab PO SCH ×3 (08:07→20:20)
[2020-08-17] MEDS: Clopidogrel 75 MG Tab PO SCH (08:08)
[2020-08-17] MEDS: Donepezil 10 MG Tab PO SCH (08:08)
[2020-08-17] MEDS: Lutein/Minerals/Vitamin C/Vitamin E Acetate Cap PO SCH (08:09)
[2020-08-17] MEDS: Torsemide 20 MG Tab PO SCH (08:10)
[2020-08-17] MEDS: cloNIDine 0.1 MG Tab PO SCH ×2 (08:12→20:21)
[2020-08-17] MEDS: Polyethylene Glycol 3350 Powder 17 GM Packet PO SCH (08:13)
[2020-08-17] MEDS: Carboxymethylcellulose Sodium 0.5% Ophth Soln 0.4 ML UD Box of 30 EYEBOTH SCH ×4 (08:13→20:22)
[2020-08-17] MEDS: sulfaSALAzine 500 MG Tab PO SCH ×2 (08:14→20:20)
[2020-08-17] MEDS: amLODIPine 10 MG Tab PO SCH (08:14)
[2020-08-17] MEDS: Tiotropium BR/Olodaterol HCL 4 GM Inhalation Spray 2.5mcg/1 dose; 10 doses INH SCH (08:15)
[2020-08-17] MEDS: Chondroitin/Glucosamine Cap PO SCH (08:15)
[2020-08-17] MEDS: Vitamin B Complex with Vitamin C Tab PO SCH (08:16)
[2020-08-17] MEDS: Zinc Sulfate 220 MG Cap PO SCH (08:16)
[2020-08-17] MEDS: Rosuvastatin 20 MG Tab PO SCH (08:19)
[2020-08-17] MEDS: Calcium Carbonate 500 MG Tablet PO SCH (08:19)
[2020-08-17] MEDS: Apixaban 5 MG Tab PO SCH ×2 (08:22→20:21)
[2020-08-17] MEDS: Insulin Glargine,Human Rec. Analog 100 Units/ML 3 ML Pen SUBCUT SCH ×2 (08:44→08:45)
[2020-08-17] MEDS: QUEtiapine 25 MG Tab PO SCH (17:26)
[2020-08-17] MEDS: Tamsulosin 0.4 MG Cap.ER PO SCH (20:21)
[2020-08-17] MEDS: Mirtazapine 15 MG Tab PO SCH (20:21)
[2020-08-18] MEDS: cefTRIAXone 1 GM Vial IVPUSH SCH (10:20)
[2020-08-18] MEDS: Sodium Chloride 0.9% 10 ML Syringe FLUSH PRN (10:22)
[2020-08-18] MEDS: Insulin Glargine,Human Rec. Analog 100 Units/ML 3 ML Pen SUBCUT SCH (10:26)
[2020-08-18] MEDS: Insulin Lispro 100 Unit/ML 3 ML KwikPen SUBCUT SCH ×3 (11:53→17:22)
[2020-08-18] MEDS: Vitamin B Complex with Vitamin C Tab PO SCH (11:54)
[2020-08-18] MEDS: Zinc Sulfate 220 MG Cap PO SCH (11:55)
[2020-08-18] MEDS: hydrALAZINE 25 MG Tab PO SCH ×3 (11:56→20:30)
[2020-08-18] MEDS: Clopidogrel 75 MG Tab PO SCH (11:56)
[2020-08-18] MEDS: sulfaSALAzine 500 MG Tab PO SCH ×2 (11:56→20:29)
[2020-08-18] MEDS: Calcium Carbonate 500 MG Tablet PO SCH (11:56)
[2020-08-18] MEDS: Donepezil 10 MG Tab PO SCH (11:57)
[2020-08-18] MEDS: cloNIDine 0.1 MG Tab PO SCH ×2 (11:58→20:29)
[2020-08-18] MEDS: Torsemide 20 MG Tab PO SCH (11:58)
[2020-08-18] MEDS: Rosuvastatin 20 MG Tab PO SCH (11:59)
[2020-08-18] MEDS: Apixaban 5 MG Tab PO SCH ×2 (11:59→20:30)
[2020-08-18] MEDS: Lutein/Minerals/Vitamin C/Vitamin E Acetate Cap PO SCH (11:59)
[2020-08-18] MEDS: Chondroitin/Glucosamine Cap PO SCH (12:00)
[2020-08-18] MEDS: Polyethylene Glycol 3350 Powder 17 GM Packet PO SCH (12:02)
[2020-08-18] MEDS: amLODIPine 10 MG Tab PO SCH (12:02)
[2020-08-18] MEDS: Tiotropium BR/Olodaterol HCL 4 GM Inhalation Spray 2.5mcg/1 dose; 10 doses INH SCH (12:03)
[2020-08-18] MEDS: Carboxymethylcellulose Sodium 0.5% Ophth Soln 0.4 ML UD Box of 30 EYEBOTH SCH ×4 (12:09→20:30)
[2020-08-18] MEDS: QUEtiapine 25 MG Tab PO SCH (17:22)
[2020-08-18] MEDS: Tamsulosin 0.4 MG Cap.ER PO SCH (20:29)
[2020-08-18] MEDS: Mirtazapine 15 MG Tab PO SCH (20:29)
[2020-08-19] MEDS: cefTRIAXone 1 GM Vial IVPUSH SCH (09:00)
[2020-08-19] MEDS: Insulin Lispro 100 Unit/ML 3 ML KwikPen SUBCUT SCH ×3 (09:02→17:36)
[2020-08-19] MEDS: Carboxymethylcellulose Sodium 0.5% Ophth Soln 0.4 ML UD Box of 30 EYEBOTH SCH ×4 (09:20→20:12)
[2020-08-19] MEDS: Insulin Glargine,Human Rec. Analog 100 Units/ML 3 ML Pen SUBCUT SCH (09:21)
[2020-08-19] MEDS: Tiotropium BR/Olodaterol HCL 4 GM Inhalation Spray 2.5mcg/1 dose; 10 doses INH SCH (09:21)
[2020-08-19] MEDS: cloNIDine 0.1 MG Tab PO SCH (10:00)
[2020-08-19] MEDS: Torsemide 20 MG Tab PO SCH (10:00)
[2020-08-19] MEDS: hydrALAZINE 25 MG Tab PO SCH ×2 (10:00→14:06)
[2020-08-19] MEDS: Chondroitin/Glucosamine Cap PO SCH (10:00)
[2020-08-19] MEDS: Apixaban 5 MG Tab PO SCH (10:00)
[2020-08-19] MEDS: Donepezil 10 MG Tab PO SCH (10:00)
[2020-08-19] MEDS: Polyethylene Glycol 3350 Powder 17 GM Packet PO SCH (10:01)
[2020-08-19] MEDS: amLODIPine 10 MG Tab PO SCH (10:01)
[2020-08-19] MEDS: Calcium Carbonate 500 MG Tablet PO SCH (10:01)
[2020-08-19] MEDS: Vitamin B Complex with Vitamin C Tab PO SCH (10:01)
[2020-08-19] MEDS: Lutein/Minerals/Vitamin C/Vitamin E Acetate Cap PO SCH (10:01)
[2020-08-19] MEDS: sulfaSALAzine 500 MG Tab PO SCH (10:01)
[2020-08-19] MEDS: Clopidogrel 75 MG Tab PO SCH (10:01)
--- NOTE | 2020-08-19 10:37 | PCM.DCSUM1 ---
Discharge Summary - Hospital Course Free Text/Narrative:: Patient was admitted to swing bed/acute rehabilitation on 08/03/2020 after being treated at acute care facility, [place], [place]. See HPI below. Patient had slow improvement with minor setbacks from 03 August until 16 August. Nursing staff reported that the patient had a significant functional setback and had altered mental status. Blood cultures were ordered, urinary catheter placed, urinalysis. Patient was started on Rocephin. Blood culture resulted at 3 AM on 08/19/2020 and showed Enterococcus vancomycin-resistant species. In consultation with infectious disease the patient was started on daptomycin. Rocephin has been continued, the patient remains on Rocephin. CT of the head performed on 08/17/2020 showed no acute process. After beginning Rocephin and having a urinary catheter placed the patient showed significant improvement in mental and physical function. However, note he continues to need mechanical assistance to sit and stand. In consultation with the patient's healthcare proxy, his son, Oli, the decision was made to transfer the patient to [place] for further evaluation and treatment. Concern is for bacteremia, urinary obstruction, cystitis, as well as recent comorbidities including RCA stent and subarachnoid hemorrhage. Note that during the course of this morning, 08/19/2020 the patient has developed abdominal pain. The abdominal pain is worse in the left and right lower quadrant and suprapubic region however it is generalized. The patient's response to pain is muted and it is difficult to tell how severe the pain is. He did not have a significant reaction to rebound tenderness. Vital signs are stable. There is no leukocytosis. Hemoglobin is slightly improved at 10.1. Renal function significantly improved with creatinine clearance improving from approximately 20 to just greater than 30. Creatinine has returned to baseline for this patient. Cotton catheter remains in place. Note that the patient did have some blood in his urine after catheterization. Note that the patient has chronic diabetes with chronic lower extremity neuropathy. He was found to have small areas of necrosis at the distal aspects of the bilateral toes, second digits. These wounds were examined by surgery and found to be dry necrosis. We will continue to monitor these areas and the patient is wearing protective boots on the left second toe has a dressing in place. HPI Initial Comments: Stephen presents for admission for swing bed placement for rehab, he had NSTEMI, type 2, small subarachnoid hemorrhage which did not require surgical intervention, bacteremia with Strep on Rocephin until 08/04. He had a SHAMEKA, no vegetations seen. Attempted PET stress test but had worsening chest pain, taken to [facility], had stent placed in Right coronary artery(RCA). His aspirin was discontinued. Will continue on Plavix 75 mg daily for next year then will readdress aspirin at that time. Eliquis dose for his atrial fibrillation was decreased to 2.5 mg bid as his renal function went up to 2.0. Creatinine has been stable at 2.0 for past 4 days, they felt most likely secondary to angiogram. He has been requiring assist x 2, sitting on edge of bed tid while at [facility]. He is a Diabetic, they had not been giving his short acting insulin due to hypoglycemia but were given his Lantus 35 units. History of stroke, obstructive sleep apnea on CPAP auto setting up to 8 mmH2O. His & son also stated they noticed a sore on one of his toes yesterday, scabbed over. He has seen podiatry in the past and has his nail care done by nurse at local clinic. He has been incontinent of urine since they took his Cotton out, not aware he is even going to the bathroom. He had diarrhea stool prior to leaving [place] today and again on arrival here. Lasix had been held throughout hospital stay, no signs of CHF, was not restarted on discharge. - Discharge Data Discharge Date: 08/19/20 Discharge Disposition: DC/Tfer to Acute Hospital 02 Condition: Fair - Referral to Home Health Primary Care Physician: Mustapha Jones MD - Discharge Diagnosis/Problem(s) (1) Bacteremia due to Streptococcus SNOMED Code(s): 291304051528 ICD Code: R78.81 - BACTEREMIA; B95.5 - UNSP STREPTOCOCCUS THE CAUSE OF DISEASES CLASSD ELSWHR Status: Acute Current Visit: Yes Problem Details: Complete antibiotic course of Rocephin 08.04 (2) NSTEMI (non-ST elevated myocardial infarction) SNOMED Code(s): 33761235 ICD Code: I21.4 - NON-ST ELEVATION (NSTEMI) MYOCARDIAL INFARCTION Status: Acute Current Visit: Yes Onset Date: ~07/2020 (3) S/P right coronary artery (RCA) stent placement SNOMED Code(s): 44221512286789, 86467140799516 ICD Code: Z95.5 - PRESENCE OF CORONARY ANGIOPLASTY IMPLANT AND GRAFT Status: Acute Current Visit: Yes (4) Subarachnoid hemorrhage SNOMED Code(s): 290158211 ICD Code: I60.9 - NONTRAUMATIC SUBARACHNOID HEMORRHAGE, UNSPECIFIED Status: Chronic Current Visit: Yes Onset Date: ~07/2020 (5) Weakness SNOMED Code(s): 99439953 ICD Code: R53.1 - WEAKNESS Status: Chronic Current Visit: Yes (6) Afib SNOMED Code(s): 81040201 ICD Code: I48.91 - UNSPECIFIED ATRIAL FIBRILLATION Status: Chronic Current Visit: No (7) CHF (congestive heart failure) SNOMED Code(s): 12583740 ICD Code: I50.9 - HEART FAILURE, UNSPECIFIED Status: Chronic Current Visit: No (8) Functional gait abnormality SNOMED Code(s): 19492968176064 ICD Code: R26.89 - OTHER ABNORMALITIES OF GAIT AND MOBILITY Status: Chronic Current Visit: No (9) COPD with asthma SNOMED Code(s): 53041867625056607 ICD Code: J44.9 - CHRONIC OBSTRUCTIVE PULMONARY DISEASE, UNSPECIFIED Status: Chronic Current Visit: No (10) Chronic atrial fibrillation SNOMED Code(s): 187520910 ICD Code: I48.20 - CHRONIC ATRIAL FIBRILLATION, UNSPECIFIED Status: Chronic Current Visit: No (11) Hyperlipidemia SNOMED Code(s): 78822299 ICD Code: E78.5 - HYPERLIPIDEMIA, UNSPECIFIED Status: Chronic Current Visit: No (12) Hypertension SNOMED Code(s): 16201079 ICD Code: I10 - ESSENTIAL (PRIMARY) HYPERTENSION Status: Chronic Current Visit: No (13) Memory loss SNOMED Code(s): 60546475 ICD Code: R41.3 - OTHER AMNESIA Status: Chronic Current Visit: No (14) Type 2 diabetes mellitus SNOMED Code(s): 88309358 ICD Code: E11.9 - TYPE 2 DIABETES MELLITUS WITHOUT COMPLICATIONS Status: Chronic Current Visit: No Qualifiers: Diabetes mellitus fpc insulin use: with remote computer terminal operator use (15) Fluid retention SNOMED Code(s): 00964804 ICD Code: R60.9 - EDEMA, UNSPECIFIED Status: Chronic Current Visit: No (16) Diabetic foot ulcer SNOMED Code(s): 954622328 ICD Code: E11.621 - TYPE 2 DIABETES MELLITUS WITH FOOT ULCER; L97.509 - NON- PRESSURE CHRONIC ULCER OTH PRT UNSP FOOT W UNSP SEVERITY Status: Acute Current Visit: Yes (17) FDC current use of anticoagulant SNOMED Code(s): 371656663 ICD Code: Z79.01 - IMMUNOLOGY SPECIALIST (CURRENT) USE OF ANTICOAGULANTS Status: Chronic Current Visit: No (18) Altered mental status SNOMED Code(s): 545433393 ICD Code: R41.82 - ALTERED MENTAL STATUS, UNSPECIFIED Status: Acute Current Visit: Yes (19) DEVANTE (acute kidney injury) SNOMED Code(s): 31720374, 65597275 ICD Code: N17.9 - ACUTE KIDNEY FAILURE, UNSPECIFIED Status: Acute Current Visit: Yes (20) Bacteremia SNOMED Code(s): 3802359 ICD Code: R78.81 - BACTEREMIA Status: Acute Current Visit: Yes - Patient Summary/Data Consults: Consultations 08/03/20 15:11 OT Evaluation and Treatment [CONS] Routine Please Evaluate and Treat. OT Reason for Consult: ADL's This query below is only for informational purposes and is not editable. PT Evaluation and Treatment [CONS] Routine Please Evaluate and Treat. PT Reason for Consult: Strengthening This query below is only for informational purposes and is not editable. - Discharge Plan *PRESCRIPTION DRUG MONITORING PROGRAM REVIEWED*: Not Applicable *COPY OF PRESCRIPTION DRUG MONITORING REPORT IN PATIENT CINDY: Not Applicable Home Medications: Home Meds Glucosam/Chondr/Collagn/Hyalur [Glucosamine & Chondroitin Cap] 1 cap PO DAILY 05/30/14 [History] Vitamin B Complex 1 cap PO DAILY 05/30/14 [History] Zinc 50 mg PO DAILY 01/09/16 [History] Lutein/Min/Vit C/Vit E Acetate [Ocuvite Lutein] 1 cap PO DAILY 01/28/19 [History] Calcium Carbonate/Vitamin D3 [Os-Porter 500+D] 1 each PO DAILY 04/21/19 [History] Tamsulosin [Flomax] 0.4 mg PO BEDTIME cap.er 04/25/19 [Rx] Acetaminophen [Tylenol] 650 mg PO Q4H PRN 08/03/20 [History] Albuterol Sulfate [Albuterol Sulfate Hfa] 2 puff IH Q4H PRN 08/03/20 [History] Albuterol/Ipratropium [DuoNeb 3.0-0.5 MG/3 ML] 3 ml IH Q4H PRN 08/03/20 [History] Apixaban [Eliquis] 2.5 mg PO BID 08/03/20 [History] Bisacodyl [Gentle Laxative] 10 mg RECTAL DAILY PRN 08/03/20 [History] Calcium Carbonate [Tums] 500 mg PO QID PRN 08/03/20 [History] Clopidogrel [Plavix] 75 mg PO DAILY 08/03/20 [History] Dextrose 50% in Water [Dextrose 50%-Water] 50 ml IV ASDIRECTED PRN 08/03/20 [History] Dextrose [Glucose] 16 gm PO ASDIRECTED PRN 08/03/20 [History] Docusate Sodium [Docusol] 1 enema RECTAL DAILY PRN 08/03/20 [History] Docusate Sodium/Sennosides [Senna Plus] 2 tab PO BID PRN 08/03/20 [History] Donepezil HCl 20 mg PO DAILY 08/03/20 [History] Insulin Aspart [NovoLOG] 2 - 8 unit SUBCUT TIDMEALS PRN 08/03/20 [History] Insulin Aspart [NovoLOG] 8 units SUBCUT TIDMEALS 08/03/20 [History] Insulin Glarg,Human.Rec.Analog [Lantus Solostar] 35 units SUBCUT DAILY 08/03/20 [History] Melatonin 6 mg PO BEDTIME PRN 08/03/20 [History] Metoprolol Tartrate 12.5 mg PO BID 08/03/20 [History] Mirtazapine 15 mg PO BEDTIME 08/03/20 [History] Nitroglycerin [Nitrostat] 0.4 mg SL Q5M PRN 08/03/20 [History] Ondansetron [Zofran ODT] 4 mg PO QID PRN 08/03/20 [History] Ondansetron [Zofran] 4 mg IVPUSH QID PRN 08/03/20 [History] Polyvinyl Alcohol/Povidone [Refresh] 1 drop EYEBOTH QID 08/03/20 [History] Potassium Chloride [Klor-Con M20] 20 meq PO DAILY 08/03/20 [History] QUEtiapine [SEROquel] 37.5 mg PO DAILY@1800 08/03/20 [History] Rosuvastatin [Crestor] 40 mg PO DAILY 08/03/20 [History] Umeclidinium Brm/Vilanterol Tr [Anoro Ellipta 62.5-25 MCG] 1 puff IH DAILY 08/03/20 [History] amLODIPine Besylate [Amlodipine Besylate] 10 mg PO DAILY 08/03/20 [History] cefTRIAXone [Rocephin] 2 gm IVPUSH DAILY@1600 08/03/20 [History] cloNIDine [Catapres] 0.1 mg PO BID 08/03/20 [History] glucagon HCL [Glucagon HCl] 1 mg IM ASDIRECTED PRN 08/03/20 [History] hydrALAZINE [Apresoline] 10 mg IV Q6H PRN 08/03/20 [History] hydrALAZINE [Apresoline] 75 mg PO TID 08/03/20 [History] polyethylene glycoL 3350 [MiraLAX] 17 gm PO DAILY 08/03/20 [History] Loperamide [Imodium] 2 mg PO BID 08/04/20 [History] sulfaSALAzine 500 mg PO BID 08/04/20 [History] - Discharge Summary/Plan Comment DC Time >30 min.: Yes - General Info Date of Service: 08/19/20 Admission Dx/Problem (Free Text: Admission Diagnosis/Problem Admission Diagnosis/Problem Rehabilitation therapy Subjective Update: Patient complains of abdominal pain Functional Status: Reports: New Symptoms - Review of Systems General: Reports: Weakness, Fatigue, Malaise HEENT: Reports: No Symptoms Pulmonary: Reports: No Symptoms Cardiovascular: Reports: No Symptoms Gastrointestinal: Reports: Abdominal Pain Genitourinary: Reports: Incontinence, Other (Cotton catheter) Musculoskeletal: Reports: Leg Pain, Foot Pain Skin: Reports: Other (Lesions bilateral second digit toes) Neurological: Reports: Confusion, Difficulty Walking, Weakness Psychiatric: Reports: Confusion - Patient Data Vitals - Most Recent: Last Vital Signs Temp 36.3 C 08/18/20 20:00 Pulse 54 L 08/18/20 20:00 Resp 18 08/18/20 20:00 BP 167/68 H 08/18/20 20:30 Pulse Ox 96 08/18/20 20:00 Weight - Most Recent: 141.578 kg I&O - Last 24 hours: Intake & Output 08/18/20 08/19/20 08/19/20 22:59 06:59 14:59 Intake Total 200 Output Total 80 100 Balance -79* -78$ Lab Results - Last 24 hrs: Laboratory Results - last 24 hr 08/18/20 08/18/20 08/18/20 Range/Units 11:36 17:18 20:13 WBC (3.2-10.1) x10-3/uL RBC (3.90-5.90) x10(6)uL Hgb (12.9-17.7) g/dL Hct (38.3-50.1) % MCV (80.8-98.7) fL MCH (27.0-33.3) pg MCHC (28.7-35.3) g/dL RDW (12.4-15.0) % Plt Count (117-477) x10(3)uL MPV (6.7-11.0) fL Neut % (Auto) (40.3-71.8) % Lymph % (Auto) (15.8-45.3) % [place] % (Auto) (5.5-15.2) % Eos % (Auto) (0.1-6.8) % Baso % (Auto) (0.3-3.8) % Neut # (Auto) (1.7-6.9) x10-3/uL Lymph # (Auto) (0.5-4.5) x10-3/uL [place] # (Auto) (0.0-1.2) x10-3/uL Eos # (Auto) (0.0-0.6) x10-3/uL Baso # (Auto) (0.0-0.3) x10-3/uL Sodium (135-145) mmol/L Potassium (3.5-5.3) mmol/L Chloride (100-110) mmol/L Carbon Dioxide (21-32) mmol/L BUN (7-18) mg/dL Creatinine (0.70-1.30) mg/dL Est Cr Clr Drug Dosing mL/min Estimated GFR (MDRD) (>60) BUN/Creatinine Ratio (9-20) Glucose (80-116) mg/dL POC Glucose 153 H 127 H 189 H (80-116) mg/dL Calcium (8.6-10.2) mg/dL Total Bilirubin (0.1-1.3) mg/dL AST (5-25) IU/L ALT (12-36) U/L Alkaline Phosphatase (56-112) IU/L Total Protein (6.0-8.0) g/dL Albumin (3.2-4.6) g/dL Globulin g/dL Albumin/Globulin Ratio 08/19/20 08/19/20 08/19/20 Range/Units 06:01 09:00 09:00 WBC 8.8 (3.2-10.1) x10-3/uL RBC 3.25 L (3.90-5.90) x10(6)uL Hgb 10.1 L (12.9-17.7) g/dL Hct 30.8 L (38.3-50.1) % MCV 94.9 (80.8-98.7) fL MCH 31.0 (27.0-33.3) pg MCHC 32.7 (28.7-35.3) g/dL RDW 14.2 (12.4-15.0) % Plt Count 262 (117-477) x10(3)uL MPV 7.7 (6.7-11.0) fL Neut % (Auto) 75.1 H (40.3-71.8) % Lymph % (Auto) 11.2 L (15.8-45.3) % [place] % (Auto) 9.3 (5.5-15.2) % Eos % (Auto) 3.2 (0.1-6.8) % Baso % (Auto) 1.2 (0.3-3.8) % Neut # (Auto) 6.6 (1.7-6.9) x10-3/uL Lymph # (Auto) 1.0 (0.5-4.5) x10-3/uL [place] # (Auto) 0.8 (0.0-1.2) x10-3/uL Eos # (Auto) 0.3 (0.0-0.6) x10-3/uL Baso # (Auto) 0.1 (0.0-0.3) x10-3/uL Sodium 147 H (135-145) mmol/L Potassium 3.4 L (3.5-5.3) mmol/L Chloride 107 (100-110) mmol/L Carbon Dioxide 32 (21-32) mmol/L BUN 51 H D (7-18) mg/dL Creatinine 2.3 H* (0.70-1.30) mg/dL Est Cr Clr Drug Dosing 34.20 mL/min Estimated GFR (MDRD) 27 L (>60) BUN/Creatinine Ratio 22.2 H (9-20) Glucose 123 H (80-116) mg/dL POC Glucose 116 (80-116) mg/dL Calcium 7.7 L (8.6-10.2) mg/dL Total Bilirubin 0.5 (0.1-1.3) mg/dL AST 28 H D (5-25) IU/L ALT 36 D (12-36) U/L Alkaline Phosphatase 145 H (56-112) IU/L Total Protein 5.7 L (6.0-8.0) g/dL Albumin 2.2 L (3.2-4.6) g/dL Globulin 3.5 g/dL Albumin/Globulin Ratio 0.6 BERNABE Results - Last 24 hrs: Microbiology 08/16/20 11:35 Aerobic Blood Culture - Preliminary Blood - Venous - Lab Draw NO GROWTH AFTER 2 DAYS Anaerobic Blood Culture - Final Enterococcus Faecium Vre 08/16/20 11:30 Aerobic Blood Culture - Preliminary Blood - Venous NO GROWTH AFTER 2 DAYS Anaerobic Blood Culture - Preliminary NO GROWTH AFTER 2 DAYS Med Orders - Current: Current Medications Acetaminophen (Acetaminophen 325 Mg Tab) 650 mg PO Q4H PRN PRN Reason: MILD PAIN Last Admin: 08/14/20 21:17 Dose: 650 mg Documented by: Albuterol (Albuterol 8 Gm Inhaler) 0 gm INH Q4H PRN PRN Reason: SHORTNESS OF BREATH/WHEEZE Albuterol/Ipratropium (Albuterol/Ipratropium 3.0-0.5 Mg/3 Ml Neb Soln) 3 ml INH Q4H PRN PRN Reason: SHORTNESS OF BREATH/WHEEZE Amlodipine Besylate (Amlodipine 10 Mg Tab) 10 mg PO DAILY STACI Last Admin: 08/19/20 10:01 Dose: Not Given Documented by: Apixaban (Apixaban 5 Mg Tab) 2.5 mg PO BID [facility] Last Admin: 08/19/20 10:00 Dose: Not Given Documented by: Artificial Tears (Carboxymethylcellulose Sodium 0.5% Ophth Soln 0.4 Ml Ud Box Of 30) 0 each EYEBOTH QID [facility] Last Admin: 08/19/20 09:20 Dose: 1 drop Documented by: Bisacodyl (Bisacodyl 10 Mg Supp) 10 mg RECTAL DAILY PRN PRN Reason: Constipation Last Admin: 08/12/20 10:33 Dose: 10 mg Documented by: Calcium Carbonate/Glycine (Calcium Carbonate 500 Mg Tab.Chew) 500 mg PO QID PRN PRN Reason: Indigestion Calcium Carbonate/Glycine (Calcium Carbonate 500 Mg Tablet) 500 mg PO DAILY [facility] Last Admin: 08/19/20 10:01 Dose: Not Given Documented by: Ceftriaxone Sodium (Ceftriaxone 1 Gm Vial) 1 gm IVPUSH Q24H [facility] Last Admin: 08/19/20 09:00 Dose: 1 gm Documented by: Clonidine HCl (Clonidine 0.1 Mg Tab) 0.1 mg PO BID [facility] Last Admin: 08/19/20 10:00 Dose: Not Given Documented by: Clopidogrel Bisulfate (Clopidogrel 75 Mg Tab) 75 mg PO DAILY [facility] Last Admin: 08/19/20 10:01 Dose: Not Given Documented by: Dextrose/Water (50% Dextrose In Water 50 Ml Syringe) 50 ml IVPUSH ASDIRECTED PRN PRN Reason: Hypoglycemia Dextrose/Water (50% Dextrose In Water 50 Ml Syringe) 50 ml IVPUSH ASDIRECTED PRN PRN Reason: Hypoglycemia Donepezil HCl (Donepezil 10 Mg Tab) 20 mg PO DAILY [facility] Last Admin: 08/19/20 10:00 Dose: Not Given Documented by: Glucagon (Glucagon,Human Recombinant 1 Mg Vial) 1 mg IM ASDIRECTED PRN PRN Reason: Hypoglycemia Glucagon (Glucagon,Human Recombinant 1 Mg Vial) 1 mg IM ASDIRECTED PRN PRN Reason: Hypoglycemia Glucosamine/Chondroitin (Chondroitin/Glucosamine Cap) 1 cap PO DAILY [facility] Last Admin: 08/19/20 10:00 Dose: Not Given Documented by: Hydralazine HCl (Hydralazine 25 Mg Tab) 75 mg PO TID [facility] Last Admin: 08/19/20 10:00 Dose: Not Given Documented by: Daptomycin 850 mg/ Sodium (Chloride) 50 mls @ 50 mls/hr IV Q24H [facility] Last Admin: 08/19/20 09:01 Dose: 50 mls/hr Documented by: Insulin Glargine (Insulin Glargine,Human Rec. Analog 100 Units/Ml 3 Ml Pen) 25 units SUBCUT DAILY [facility] Last Admin: 08/19/20 09:21 Dose: 25 units Documented by: Insulin Human Lispro (Insulin Lispro 100 Unit/Ml 3 Ml Kwikpen) 0 unit SUBCUT TIDMEALS [facility]; Protocol Last Admin: 08/19/20 09:02 Dose: Not Given Documented by: Melatonin (Melatonin 3 Mg Tab) 6 mg PO BEDTIME PRN PRN Reason: Insomnia Last Admin: 08/07/20 22:05 Dose: 6 mg Documented by: Mirtazapine (Mirtazapine 15 Mg Tab) 15 mg PO BEDTIME [facility] Last Admin: 08/18/20 20:29 Dose: 15 mg Documented by: Multivitamins (Vitamin B Complex With Vitamin C Tab) 1 each PO DAILY [facility] Last Admin: 08/19/20 10:01 Dose: Not Given Documented by: Nitroglycerin (Nitroglycerin 0.4 Mg Tab.Sl) 0.4 mg SL Q5M PRN PRN Reason: Chest Pain Ondansetron HCl (Ondansetron 4 Mg Tab.Dis) 4 mg PO Q6H PRN PRN Reason: nausea, able to take PO Polyethylene Glycol (Polyethylene Glycol 3350 Powder 17 Gm Packet) 17 gm PO DA AIRAM PRN PRN Reason: Constipation Last Admin: 08/12/20 08:33 Dose: 17 gm Documented by: Polyethylene Glycol (Polyethylene Glycol 3350 Powder 17 Gm Packet) 17 gm PO DAILY [facility] Last Admin: 08/19/20 10:01 Dose: Not Given Documented by: Quetiapine Fumarate (Quetiapine 25 Mg Tab) 37.5 mg PO DAILY@1800 [facility] Last Admin: 08/18/20 17:22 Dose: 37.5 mg Documented by: Sodium Chloride (Sodium Chloride 0.9% 10 Ml Syringe) 10 ml FLUSH ASDIRECTED PRN PRN Reason: Keep Vein Open Last Admin: 08/18/20 10:22 Dose: 10 ml Documented by: Sulfasalazine (Sulfasalazine 500 Mg Tab) 500 mg PO BID [facility] Last Admin: 08/19/20 10:01 Dose: Not Given Documented by: Tamsulosin HCl (Tamsulosin 0.4 Mg Cap.Er) 0.4 mg PO BEDTIME [facility] Last Admin: 08/18/20 20:29 Dose: 0.4 mg Documented by: Torsemide (Torsemide 20 Mg Tab) 20 mg PO DAILY [facility] Last Admin: 08/19/20 10:00 Dose: Not Given Documented by: Vit C/Vit E/Zinc/Copper/Lutein (Lutein/Minerals/Vitamin C/Vitamin E Acetate Cap) 1 each PO DAILY [facility] Last Admin: 08/19/20 10:01 Dose: Not Given Documented by: Discontinued Medications Ceftriaxone Sodium (Ceftriaxone 2 Gm Vial) 2 gm IVPUSH DAILY@1600 [facility] Stop: 08/04/20 16:01 Last Admin: 08/04/20 16:44 Dose: 2 gm Documented by: Ceftriaxone Sodium 1 gm/ (Sodium Chloride) 50 mls @ 200 mls/hr IV Q24H [facility] Last Admin: 08/17/20 03:48 Dose: 200 mls/hr Documented by: Insulin Glargine (Insulin Glargine,Human Rec. Analog 100 Units/Ml 3 Ml Pen) 35 units SUBCUT DAILY [facility] Last Admin: 08/16/20 09:42 Dose: 35 unit Documented by: Lidocaine HCl (Lidocaine 2% Hcl 6 Ml Jel.Pf.Leo) 6 ml .XX ONETIME ONE Stop: 08/16/20 10:58 Last Admin: 08/16/20 11:03 Dose: 6 ml Documented by: Loperamide HCl (Loperamide 2 Mg Cap) 2 mg PO BID [facility] Last Admin: 08/09/20 08:51 Dose: 2 mg Documented by: Metoprolol Tartrate (Metoprolol Tartrate 25 Mg Tab) 12.5 mg PO BID [facility] Last Admin: 08/04/20 08:20 Dose: 12.5 mg Documented by: Rosuvastatin Calcium (Rosuvastatin 20 Mg Tab) 40 mg PO DAILY [facility] Last Admin: 08/18/20 11:59 Dose: 40 mg Documented by: Zinc Sulfate (Zinc Sulfate 220 Mg Cap) 220 mg PO DAILY [facility] Last Admin: 08/18/20 11:55 Dose: 220 mg Documented by: Comments:: Patient is significantly more lethargic this morning than yesterday. He is answering questions appropriately including remembering the names of his dogs. This is a substantial improvement from 2 days ago but he is not doing as well as he was yesterday - Exam Quality Assessment: Reports: DVT Prophylaxis, Skin Breakdown General: Reports: Alert, Cooperative, Mild Distress Lungs: Reports: Decreased Breath Sounds, Crackles, Other (Decreased airflow bilateral lower lung farmer with mild crackles) Cardiovascular: Reports: Irregular Rhythm, Bradycardia GI/Abdominal Exam: Rebound, Tender, Other (Decreased bowel sounds, no high- pitched bowel sounds, possible mild rebound tenderness). No: Distended Extremities: Pedal Edema Skin: Reports: Warm, Dry Wound/Incisions: Reports: Dressing Dry and Intact Psy/Mental Status: Reports: Alert *Q Meaningful Use (DIS) - VTE *Q VTE Mechanical Contraindications *Q: At Risk for Falls VTE Pharmacological Contraindications *Q: Risk of Bleeding
--- NOTE | 2020-08-19 13:26 | CT ---
INDICATION: Abdominal pain. Bacteremia. CT ABDOMEN AND PELVIS WITHOUT CONTRAST: Spiral 3.75 mm axial sections were obtained through the abdomen and pelvis without contrast with sagittal and coronal reconstructions 08/19/2020 - no comparison. Total exam DLP was 2392.81 mGy-cm. There are bilateral pleural effusions, larger on the right than left with some probable atelectatic changes in the lower lobes versus pneumonia and pleuritis. Heavy markings in the lingula may be fibrotic in nature and/or atelectatic. The heart is enlarged with valvular calcification. Coronary artery calcification is suggested. No pericardial effusion was seen. The gallbladder is absent, compatible with history of its removal. The appendix appeared normal, visualized on coronal images 45-49. No definite free air or bowel obstruction was seen. Small umbilical hernia is noted including only fat. No inguinal hernia was seen. Calcifications are noted in the abdominal aorta without aneurysmal dilatation. Extensive calcification is noted in the splenic artery with calcifications in the superior mesenteric, iliac and femoral arteries. Extensive fat stranding is noted in perirenal spaces. Probable distal right renal artery calcification is noted. No definite obstructive uropathy was seen. The appearance of the kidneys may be on the basis of pyelonephritis or possibly previous obstructive uropathy. The urinary bladder wall appears to be massively thickened with a urinary bladder catheter in place with dilated balloon. The etiology is indeterminate, but surely could be on the basis of cystitis. Air is noted in the urinary bladder, which may be on the basis of the presence of the catheter or possibly gas-forming organism infection and should be correlated clinically. The fat stranding seen in the perirenal spaces appears to be extending into the paracolic gutters bilaterally and into the pelvis. No gross abdominal ascites was seen, however. IMPRESSION: 1. Bilateral pleural effusions and atelectatic changes in the lower lobes versus pneumonia and pleuritis. 2. ASHD with cardiomegaly. 3. Fat stranding perirenal extending into the paracolic gutters and into the pelvis without definite ascites. Findings may be on the basis of peritonitis. Findings were associated with marked thickening of the wall of the urinary bladder. Gas in the urinary bladder could be on the basis of instrumentation - Cotton catheter is noted in place versus gas-forming organism infection of the urinary bladder wall. 4. Postcholecystectomy. 5. ASD. 6. Mild dextroconcave scoliosis upper lumbar spine with possible pathologic fracture at the T12 vertebral body - there appear to be some lytic changes as well as some destructive appearance at the vertebral body. The possibility of infection at this vertebral body would also be a consideration. 7. Hypertrophic degenerative changes and disk disease in the lumbosacral spine as well as the lower thoracic spine visualized. 8. Anasarca. Report was called to Dr. Geronimo at 1303 hours. [facility]
[2020-08-19] MEDS ORDERED: Morphine 2 MG/ML SYRINGE IVPUSH PRN (14:10)
[2020-08-19] MEDS: Sodium Chloride 0.9% 10 ML Syringe FLUSH PRN ×4 (14:59→20:41)
[2020-08-19] MEDS: LORazepam 1 MG Tab PO PRN ×3 (16:24→20:05)
[2020-08-19] MEDS: Morphine 2 MG/ML SYRINGE IVPUSH PRN ×4 (16:26→20:41)
[2020-08-20] MEDS: Sodium Chloride 0.9% 10 ML Syringe FLUSH PRN ×8 (03:21→22:38)
[2020-08-20] MEDS: Morphine 2 MG/ML SYRINGE IVPUSH PRN ×8 (03:21→21:41)
[2020-08-20] MEDS: LORazepam 1 MG Tab PO PRN ×5 (05:41→19:07)
--- NOTE | 2020-08-20 09:26 | PCM.PN ---
- General Info Date of Service: 08/20/20 Admission Dx/Problem (Free Text): Patient briefly answers questions with one-word his response and goes back to sleep. He denies fevers, chills, cough, abdominal pain. - Patient Data Vitals - Most Recent: Last Vital Signs Temp 98.1 F 08/19/20 08:00 Pulse 52 L 08/19/20 08:00 Resp 22 H 08/19/20 08:00 BP 165/67 H 08/19/20 08:00 Pulse Ox 97 08/19/20 08:00 Weight - Most Recent: 312 lb 2 oz I&O - Last 24 Hours: Intake & Output 08/19/20 08/20/20 08/20/20 22:59 06:59 14:59 Output Total 80 17% Balance -79* -16/ Lab Results Last 24 Hours: Laboratory Results - last 24 hr 08/19/20 08/19/20 08/19/20 Range/Units 09:00 09:00 11:29 WBC 8.8 (3.2-10.1) x10-3/uL RBC 3.25 L (3.90-5.90) x10(6)uL Hgb 10.1 L (12.9-17.7) g/dL Hct 30.8 L (38.3-50.1) % MCV 94.9 (80.8-98.7) fL MCH 31.0 (27.0-33.3) pg MCHC 32.7 (28.7-35.3) g/dL RDW 14.2 (12.4-15.0) % Plt Count 262 (117-477) x10(3)uL MPV 7.7 (6.7-11.0) fL Neut % (Auto) 75.1 H (40.3-71.8) % Lymph % (Auto) 11.2 L (15.8-45.3) % Wirt % (Auto) 9.3 (5.5-15.2) % Eos % (Auto) 3.2 (0.1-6.8) % Baso % (Auto) 1.2 (0.3-3.8) % Neut # (Auto) 6.6 (1.7-6.9) x10-3/uL Lymph # (Auto) 1.0 (0.5-4.5) x10-3/uL Wirt # (Auto) 0.8 (0.0-1.2) x10-3/uL Eos # (Auto) 0.3 (0.0-0.6) x10-3/uL Baso # (Auto) 0.1 (0.0-0.3) x10-3/uL Sodium 147 H (135-145) mmol/L Potassium 3.4 L (3.5-5.3) mmol/L Chloride 107 (100-110) mmol/L Carbon Dioxide 32 (21-32) mmol/L BUN 51 H D (7-18) mg/dL Creatinine 2.3 H* (0.70-1.30) mg/dL Est Cr Clr Drug Dosing 34.20 mL/min Estimated GFR (MDRD) 27 L (>60) BUN/Creatinine Ratio 22.2 H (9-20) Glucose 123 H (80-116) mg/dL POC Glucose 108 (80-116) mg/dL Calcium 7.7 L (8.6-10.2) mg/dL Total Bilirubin 0.5 (0.1-1.3) mg/dL AST 28 H D (5-25) IU/L ALT 36 D (12-36) U/L Alkaline Phosphatase 145 H (56-112) IU/L Total Protein 5.7 L (6.0-8.0) g/dL Albumin 2.2 L (3.2-4.6) g/dL Globulin 3.5 g/dL Albumin/Globulin Ratio 0.6 08/19/20 08/19/20 08/19/20 Range/Units 17:14 20:16 20:49 WBC (3.2-10.1) x10-3/uL RBC (3.90-5.90) x10(6)uL Hgb (12.9-17.7) g/dL Hct (38.3-50.1) % MCV (80.8-98.7) fL MCH (27.0-33.3) pg MCHC (28.7-35.3) g/dL RDW (12.4-15.0) % Plt Count (117-477) x10(3)uL MPV (6.7-11.0) fL Neut % (Auto) (40.3-71.8) % Lymph % (Auto) (15.8-45.3) % Wirt % (Auto) (5.5-15.2) % Eos % (Auto) (0.1-6.8) % Baso % (Auto) (0.3-3.8) % Neut # (Auto) (1.7-6.9) x10-3/uL Lymph # (Auto) (0.5-4.5) x10-3/uL Wirt # (Auto) (0.0-1.2) x10-3/uL Eos # (Auto) (0.0-0.6) x10-3/uL Baso # (Auto) (0.0-0.3) x10-3/uL Sodium (135-145) mmol/L Potassium (3.5-5.3) mmol/L Chloride (100-110) mmol/L Carbon Dioxide (21-32) mmol/L BUN (7-18) mg/dL Creatinine (0.70-1.30) mg/dL Est Cr Clr Drug Dosing mL/min Estimated GFR (MDRD) (>60) BUN/Creatinine Ratio (9-20) Glucose (80-116) mg/dL POC Glucose 77 L 61 L 69 L (80-116) mg/dL Calcium (8.6-10.2) mg/dL Total Bilirubin (0.1-1.3) mg/dL AST (5-25) IU/L ALT (12-36) U/L Alkaline Phosphatase (56-112) IU/L Total Protein (6.0-8.0) g/dL Albumin (3.2-4.6) g/dL Globulin g/dL Albumin/Globulin Ratio 08/19/20 08/20/20 Range/Units 21:38 05:44 WBC (3.2-10.1) x10-3/uL RBC (3.90-5.90) x10(6)uL Hgb (12.9-17.7) g/dL Hct (38.3-50.1) % MCV (80.8-98.7) fL MCH (27.0-33.3) pg MCHC (28.7-35.3) g/dL RDW (12.4-15.0) % Plt Count (117-477) x10(3)uL MPV (6.7-11.0) fL Neut % (Auto) (40.3-71.8) % Lymph % (Auto) (15.8-45.3) % Wirt % (Auto) (5.5-15.2) % Eos % (Auto) (0.1-6.8) % Baso % (Auto) (0.3-3.8) % Neut # (Auto) (1.7-6.9) x10-3/uL Lymph # (Auto) (0.5-4.5) x10-3/uL Wirt # (Auto) (0.0-1.2) x10-3/uL Eos # (Auto) (0.0-0.6) x10-3/uL Baso # (Auto) (0.0-0.3) x10-3/uL Sodium (135-145) mmol/L Potassium (3.5-5.3) mmol/L Chloride (100-110) mmol/L Carbon Dioxide (21-32) mmol/L BUN (7-18) mg/dL Creatinine (0.70-1.30) mg/dL Est Cr Clr Drug Dosing mL/min Estimated GFR (MDRD) (>60) BUN/Creatinine Ratio (9-20) Glucose (80-116) mg/dL POC Glucose 75 L 77 L (80-116) mg/dL Calcium (8.6-10.2) mg/dL Total Bilirubin (0.1-1.3) mg/dL AST (5-25) IU/L ALT (12-36) U/L Alkaline Phosphatase (56-112) IU/L Total Protein (6.0-8.0) g/dL Albumin (3.2-4.6) g/dL Globulin g/dL Albumin/Globulin Ratio Los Results Last 24 Hours: Microbiology 08/16/20 11:35 Aerobic Blood Culture - Preliminary Blood - Venous - Lab Draw NO GROWTH AFTER 3 DAYS Anaerobic Blood Culture - Final Enterococcus Faecium Vre 08/16/20 11:30 Aerobic Blood Culture - Preliminary Blood - Venous NO GROWTH AFTER 3 DAYS Anaerobic Blood Culture - Preliminary NO GROWTH AFTER 3 DAYS Med Orders - Current: Current Medications Albuterol (Albuterol 8 Gm Inhaler) 0 gm INH Q4H PRN PRN Reason: SHORTNESS OF BREATH/WHEEZE Albuterol/Ipratropium (Albuterol/Ipratropium 3.0-0.5 Mg/3 Ml Neb Soln) 3 ml INH Q4H PRN PRN Reason: SHORTNESS OF BREATH/WHEEZE Artificial Tears (Carboxymethylcellulose Sodium 0.5% Ophth Soln 0.4 Ml Ud Box Of 30) 0 each EYEBOTH QID STACI Last Admin: 08/19/20 20:12 Dose: 1 drop Documented by: Bisacodyl (Bisacodyl 10 Mg Supp) 10 mg RECTAL DAILY PRN PRN Reason: Constipation Last Admin: 08/12/20 10:33 Dose: 10 mg Documented by: Dextrose/Water (50% Dextrose In Water 50 Ml Syringe) 50 ml IVPUSH ASDIRECTED PRN PRN Reason: Hypoglycemia Glucagon (Glucagon,Human Recombinant 1 Mg Vial) 1 mg IM ASDIRECTED PRN PRN Reason: Hypoglycemia Insulin Glargine (Insulin Glargine,Human Rec. Analog 100 Units/Ml 3 Ml Pen) 25 units SUBCUT DAILY [facility] Last Admin: 08/19/20 09:21 Dose: 25 units Documented by: Insulin Human Lispro (Insulin Lispro 100 Unit/Ml 3 Ml Kwikpen) 0 unit SUBCUT TIDMEALS [facility]; Protocol Last Admin: 08/19/20 17:36 Dose: Not Given Documented by: Lorazepam (Lorazepam 1 Mg Tab) 1 mg PO Q1H PRN PRN Reason: Agitation Last Admin: 08/20/20 05:41 Dose: 1 mg Documented by: Morphine Sulfate (Morphine 2 Mg/Ml Syringe) 2 mg IVPUSH Q30M PRN PRN Reason: PAIN Last Admin: 08/20/20 03:21 Dose: 2 mg Documented by: Ondansetron HCl (Ondansetron 4 Mg Tab.Dis) 4 mg PO Q6H PRN PRN Reason: nausea, able to take PO Sodium Chloride (Sodium Chloride 0.9% 10 Ml Syringe) 10 ml FLUSH ASDIRECTED PRN PRN Reason: Keep Vein Open Last Admin: 08/20/20 05:55 Dose: 10 ml Documented by: Discontinued Medications Acetaminophen (Acetaminophen 325 Mg Tab) 650 mg PO Q4H PRN PRN Reason: MILD PAIN Last Admin: 08/14/20 21:17 Dose: 650 mg Documented by: Amlodipine Besylate (Amlodipine 10 Mg Tab) 10 mg PO DAILY [facility] Last Admin: 08/19/20 10:01 Dose: Not Given Documented by: Apixaban (Apixaban 5 Mg Tab) 2.5 mg PO BID [facility] Last Admin: 08/19/20 10:00 Dose: Not Given Documented by: Calcium Carbonate/Glycine (Calcium Carbonate 500 Mg Tab.Chew) 500 mg PO QID PRN PRN Reason: Indigestion Calcium Carbonate/Glycine (Calcium Carbonate 500 Mg Tablet) 500 mg PO DAILY [facility] Last Admin: 08/19/20 10:01 Dose: Not Given Documented by: Ceftriaxone Sodium (Ceftriaxone 2 Gm Vial) 2 gm IVPUSH DAILY@1600 [facility] Stop: 08/04/20 16:01 Last Admin: 08/04/20 16:44 Dose: 2 gm Documented by: Ceftriaxone Sodium (Ceftriaxone 1 Gm Vial) 1 gm IVPUSH Q24H [facility] Last Admin: 08/19/20 09:00 Dose: 1 gm Documented by: Clonidine HCl (Clonidine 0.1 Mg Tab) 0.1 mg PO BID [facility] Last Admin: 08/19/20 10:00 Dose: Not Given Documented by: Clopidogrel Bisulfate (Clopidogrel 75 Mg Tab) 75 mg PO DAILY [facility] Last Admin: 08/19/20 10:01 Dose: Not Given Documented by: Dextrose/Water (50% Dextrose In Water 50 Ml Syringe) 50 ml IVPUSH ASDIRECTED PRN PRN Reason: Hypoglycemia Donepezil HCl (Donepezil 10 Mg Tab) 20 mg PO DAILY [facility] Last Admin: 08/19/20 10:00 Dose: Not Given Documented by: Glucagon (Glucagon,Human Recombinant 1 Mg Vial) 1 mg IM ASDIRECTED PRN PRN Reason: Hypoglycemia Glucosamine/Chondroitin (Chondroitin/Glucosamine Cap) 1 cap PO DAILY [facility] Last Admin: 08/19/20 10:00 Dose: Not Given Documented by: Hydralazine HCl (Hydralazine 25 Mg Tab) 75 mg PO TID [facility] Last Admin: 08/19/20 14:06 Dose: Not Given Documented by: Ceftriaxone Sodium 1 gm/ (Sodium Chloride) 50 mls @ 200 mls/hr IV Q24H [facility] Last Admin: 08/17/20 03:48 Dose: 200 mls/hr Documented by: Daptomycin 850 mg/ Sodium (Chloride) 50 mls @ 50 mls/hr IV Q24H [facility] Last Admin: 08/19/20 09:01 Dose: 50 mls/hr Documented by: Insulin Glargine (Insulin Glargine,Human Rec. Analog 100 Units/Ml 3 Ml Pen) 35 units SUBCUT DAILY [facility] Last Admin: 08/16/20 09:42 Dose: 35 unit Documented by: Lidocaine HCl (Lidocaine 2% Hcl 6 Ml Jel.Pf.Leo) 6 ml .XX ONETIME ONE Stop: 08/16/20 10:58 Last Admin: 08/16/20 11:03 Dose: 6 ml Documented by: Loperamide HCl (Loperamide 2 Mg Cap) 2 mg PO BID [facility] Last Admin: 08/09/20 08:51 Dose: 2 mg Documented by: Melatonin (Melatonin 3 Mg Tab) 6 mg PO BEDTIME PRN PRN Reason: Insomnia Last Admin: 08/07/20 22:05 Dose: 6 mg Documented by: Metoprolol Tartrate (Metoprolol Tartrate 25 Mg Tab) 12.5 mg PO BID [facility] Last Admin: 08/04/20 08:20 Dose: 12.5 mg Documented by: Mirtazapine (Mirtazapine 15 Mg Tab) 15 mg PO BEDTIME [facility] Last Admin: 08/18/20 20:29 Dose: 15 mg Documented by: Morphine Sulfate (Morphine 2 Mg/Ml Syringe) 2 mg IVPUSH Q30M PRN PRN Reason: Pain Last Admin: 08/19/20 14:57 Dose: 2 mg Documented by: Multivitamins (Vitamin B Complex With Vitamin C Tab) 1 each PO DAILY [facility] Last Admin: 08/19/20 10:01 Dose: Not Given Documented by: Nitroglycerin (Nitroglycerin 0.4 Mg Tab.Sl) 0.4 mg SL Q5M PRN PRN Reason: Chest Pain Polyethylene Glycol (Polyethylene Glycol 3350 Powder 17 Gm Packet) 17 gm PO DAILY PRN PRN Reason: Constipation Last Admin: 08/12/20 08:33 Dose: 17 gm Documented by: Polyethylene Glycol (Polyethylene Glycol 3350 Powder 17 Gm Packet) 17 gm PO DAILY [facility] Last Admin: 08/19/20 10:01 Dose: Not Given Documented by: Quetiapine Fumarate (Quetiapine 25 Mg Tab) 37.5 mg PO DAILY@1800 [facility] Last Admin: 08/18/20 17:22 Dose: 37.5 mg Documented by: Rosuvastatin Calcium (Rosuvastatin 20 Mg Tab) 40 mg PO DAILY [facility] Last Admin: 08/18/20 11:59 Dose: 40 mg Documented by: Sulfasalazine (Sulfasalazine 500 Mg Tab) 500 mg PO BID [facility] Last Admin: 08/19/20 10:01 Dose: Not Given Documented by: Tamsulosin HCl (Tamsulosin 0.4 Mg Cap.Er) 0.4 mg PO BEDTIME [facility] Last Admin: 08/18/20 20:29 Dose: 0.4 mg Documented by: Torsemide (Torsemide 20 Mg Tab) 20 mg PO DAILY [facility] Last Admin: 08/19/20 10:00 Dose: Not Given Documented by: Vit C/Vit E/Zinc/Copper/Lutein (Lutein/Minerals/Vitamin C/Vitamin E Acetate Cap) 1 each PO DAILY [facility] Last Admin: 08/19/20 10:01 Dose: Not Given Documented by: Zinc Sulfate (Zinc Sulfate 220 Mg Cap) 220 mg PO DAILY [facility] Last Admin: 08/18/20 11:55 Dose: 220 mg Documented by: - Exam General: Cooperative, Lethargic Lungs: Clear to Auscultation, Normal Respiratory Effort Cardiovascular: Regular Rate, Regular Rhythm, No Murmurs GI/Abdominal Exam: Normal Bowel Sounds, No Distention, No Mass - Patient Data Lab Results Last 24 hrs: Laboratory Results - last 24 hr 08/19/20 08/19/20 08/19/20 Range/Units 09:00 09:00 11:29 WBC 8.8 (3.2-10.1) x10-3/uL RBC 3.25 L (3.90-5.90) x10(6)uL Hgb 10.1 L (12.9-17.7) g/dL Hct 30.8 L (38.3-50.1) % MCV 94.9 (80.8-98.7) fL MCH 31.0 (27.0-33.3) pg MCHC 32.7 (28.7-35.3) g/dL RDW 14.2 (12.4-15.0) % Plt Count 262 (117-477) x10(3)uL MPV 7.7 (6.7-11.0) fL Neut % (Auto) 75.1 H (40.3-71.8) % Lymph % (Auto) 11.2 L (15.8-45.3) % Wirt % (Auto) 9.3 (5.5-15.2) % Eos % (Auto) 3.2 (0.1-6.8) % Baso % (Auto) 1.2 (0.3-3.8) % Neut # (Auto) 6.6 (1.7-6.9) x10-3/uL Lymph # (Auto) 1.0 (0.5-4.5) x10-3/uL Wirt # (Auto) 0.8 (0.0-1.2) x10-3/uL Eos # (Auto) 0.3 (0.0-0.6) x10-3/uL Baso # (Auto) 0.1 (0.0-0.3) x10-3/uL Sodium 147 H (135-145) mmol/L Potassium 3.4 L (3.5-5.3) mmol/L Chloride 107 (100-110) mmol/L Carbon Dioxide 32 (21-32) mmol/L BUN 51 H D (7-18) mg/dL Creatinine 2.3 H* (0.70-1.30) mg/dL Est Cr Clr Drug Dosing 34.20 mL/min Estimated GFR (MDRD) 27 L (>60) BUN/Creatinine Ratio 22.2 H (9-20) Glucose 123 H (80-116) mg/dL POC Glucose 108 (80-116) mg/dL Calcium 7.7 L (8.6-10.2) mg/dL Total Bilirubin 0.5 (0.1-1.3) mg/dL AST 28 H D (5-25) IU/L ALT 36 D (12-36) U/L Alkaline Phosphatase 145 H (56-112) IU/L Total Protein 5.7 L (6.0-8.0) g/dL Albumin 2.2 L (3.2-4.6) g/dL Globulin 3.5 g/dL Albumin/Globulin Ratio 0.6 08/19/20 08/19/20 08/19/20 Range/Units 17:14 20:16 20:49 WBC (3.2-10.1) x10-3/uL RBC (3.90-5.90) x10(6)uL Hgb (12.9-17.7) g/dL Hct (38.3-50.1) % MCV (80.8-98.7) fL MCH (27.0-33.3) pg MCHC (28.7-35.3) g/dL RDW (12.4-15.0) % Plt Count (117-477) x10(3)uL MPV (6.7-11.0) fL Neut % (Auto) (40.3-71.8) % Lymph % (Auto) (15.8-45.3) % Wirt % (Auto) (5.5-15.2) % Eos % (Auto) (0.1-6.8) % Baso % (Auto) (0.3-3.8) % Neut # (Auto) (1.7-6.9) x10-3/uL Lymph # (Auto) (0.5-4.5) x10-3/uL Wirt # (Auto) (0.0-1.2) x10-3/uL Eos # (Auto) (0.0-0.6) x10-3/uL Baso # (Auto) (0.0-0.3) x10-3/uL Sodium (135-145) mmol/L Potassium (3.5-5.3) mmol/L Chloride (100-110) mmol/L Carbon Dioxide (21-32) mmol/L BUN (7-18) mg/dL Creatinine (0.70-1.30) mg/dL Est Cr Clr Drug Dosing mL/min Estimated GFR (MDRD) (>60) BUN/Creatinine Ratio (9-20) Glucose (80-116) mg/dL POC Glucose 77 L 61 L 69 L (80-116) mg/dL Calcium (8.6-10.2) mg/dL Total Bilirubin (0.1-1.3) mg/dL AST (5-25) IU/L ALT (12-36) U/L Alkaline Phosphatase (56-112) IU/L Total Protein (6.0-8.0) g/dL Albumin (3.2-4.6) g/dL Globulin g/dL Albumin/Globulin Ratio 08/19/20 08/20/20 Range/Units 21:38 05:44 WBC (3.2-10.1) x10-3/uL RBC (3.90-5.90) x10(6)uL Hgb (12.9-17.7) g/dL Hct (38.3-50.1) % MCV (80.8-98.7) fL MCH (27.0-33.3) pg MCHC (28.7-35.3) g/dL RDW (12.4-15.0) % Plt Count (117-477) x10(3)uL MPV (6.7-11.0) fL Neut % (Auto) (40.3-71.8) % Lymph % (Auto) (15.8-45.3) % Wirt % (Auto) (5.5-15.2) % Eos % (Auto) (0.1-6.8) % Baso % (Auto) (0.3-3.8) % Neut # (Auto) (1.7-6.9) x10-3/uL Lymph # (Auto) (0.5-4.5) x10-3/uL Wirt # (Auto) (0.0-1.2) x10-3/uL Eos # (Auto) (0.0-0.6) x10-3/uL Baso # (Auto) (0.0-0.3) x10-3/uL Sodium (135-145) mmol/L Potassium (3.5-5.3) mmol/L Chloride (100-110) mmol/L Carbon Dioxide (21-32) mmol/L BUN (7-18) mg/dL Creatinine (0.70-1.30) mg/dL Est Cr Clr Drug Dosing mL/min Estimated GFR (MDRD) (>60) BUN/Creatinine Ratio (9-20) Glucose (80-116) mg/dL POC Glucose 75 L 77 L (80-116) mg/dL Calcium (8.6-10.2) mg/dL Total Bilirubin (0.1-1.3) mg/dL AST (5-25) IU/L ALT (12-36) U/L Alkaline Phosphatase (56-112) IU/L Total Protein (6.0-8.0) g/dL Albumin (3.2-4.6) g/dL Globulin g/dL Albumin/Globulin Ratio Result Diagrams: 08/19/20 09:00 08/19/20 09:00 Los Results Last 24 hrs: Microbiology 08/16/20 11:35 Aerobic Blood Culture - Preliminary Blood - Venous - Lab Draw NO GROWTH AFTER 3 DAYS Anaerobic Blood Culture - Final Enterococcus Faecium Vre 08/16/20 11:30 Aerobic Blood Culture - Preliminary Blood - Venous NO GROWTH AFTER 3 DAYS Anaerobic Blood Culture - Preliminary NO GROWTH AFTER 3 DAYS Sepsis Event Note - Evaluation Sepsis Screening Result: No Definite Risk - Problem List & Annotations (1) Need for comfort care SNOMED Code(s): 437117855, 016733545 Code(s): RPJ1603 - Status: Acute Current Visit: Yes (2) VRE bacteremia SNOMED Code(s): 646560762244 Code(s): R78.81 - BACTEREMIA; B95.2 - ENTEROCOCCUS THE CAUSE OF DISEASES CLASSIFIED ELSEWHERE; Z16.21 - RESISTANCE TO VANCOMYCIN Status: Acute Current Visit: Yes (3) Altered mental status SNOMED Code(s): 787933085 Code(s): R41.82 - ALTERED MENTAL STATUS, UNSPECIFIED Status: Acute Current Visit: Yes (4) Bacteremia due to Streptococcus SNOMED Code(s): 341845070666 Code(s): R78.81 - BACTEREMIA; B95.5 - UNSP STREPTOCOCCUS THE CAUSE OF DISEASES CLASSD [id number] Status: Acute Current Visit: Yes Annotation/Comment:: Complete antibiotic course of Rocephin 4.28 (5) Diabetic foot ulcer SNOMED Code(s): 711223585 Code(s): E11.621 - TYPE 2 DIABETES MELLITUS WITH FOOT ULCER; L97.509 - NON- PRESSURE CHRONIC ULCER OTH PRT UNSP FOOT W UNSP SEVERITY Status: Acute Current Visit: Yes (6) NSTEMI (non-ST elevated myocardial infarction) SNOMED Code(s): 56982122 Code(s): I21.4 - NON-ST ELEVATION (NSTEMI) MYOCARDIAL INFARCTION Status: Acute Current Visit: Yes Onset Date: ~07/2020 (7) S/P right coronary artery (RCA) stent placement SNOMED Code(s): 97969189429332, 62825606890967 Code(s): Z95.5 - PRESENCE OF CORONARY ANGIOPLASTY IMPLANT AND GRAFT Status: Acute Current Visit: Yes (8) Subarachnoid hemorrhage SNOMED Code(s): 661432407 Code(s): I60.9 - NONTRAUMATIC SUBARACHNOID HEMORRHAGE, UNSPECIFIED Status: Chronic Current Visit: Yes Onset Date: ~07/2020 (9) Weakness SNOMED Code(s): 35683408 Code(s): R53.1 - WEAKNESS Status: Chronic Current Visit: Yes (10) Chronic renal failure, stage 3 (moderate) SNOMED Code(s): 12895896, 599696045 Code(s): N18.3 - CHRONIC KIDNEY DISEASE, STAGE 3 (MODERATE) * DO NOT USE * Status: Acute Current Visit: No (11) Type 2 diabetes mellitus SNOMED Code(s): 28867604 Code(s): E11.9 - TYPE 2 DIABETES MELLITUS WITHOUT COMPLICATIONS Status: Chronic Current Visit: No 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 I did not talk to the patients family was passed on to me that he is comfort care. That they do not want antibiotics and these want to keep him comfortable. That would be the came plan and list family changes her mind. He currently is not on any antibiotics for the VRE.
[2020-08-20] MEDS: Insulin Glargine,Human Rec. Analog 100 Units/ML 3 ML Pen SUBCUT SCH ×2 (09:32→09:59)
[2020-08-20] MEDS: Insulin Lispro 100 Unit/ML 3 ML KwikPen SUBCUT SCH (09:34)
[2020-08-20] MEDS: Carboxymethylcellulose Sodium 0.5% Ophth Soln 0.4 ML UD Box of 30 EYEBOTH SCH ×4 (09:36→21:40)
--- NOTE | 2020-08-20 10:29 | PCM.SN.2 ---
- Free Text/Narrative Note: The asked if I was stopped Accu-Cheks in the insulin. Side DC'd everything that he does not need to keep him comfortable. That's her goal now is to keep him comfortable. Stop Accu-Cheks, dextrose, glucagon, insulin. Continue his nausea medication, pain medication, oxygen.
[2020-08-21] MEDS: Morphine 2 MG/ML SYRINGE IVPUSH PRN ×8 (04:06→22:05)
[2020-08-21] MEDS: Sodium Chloride 0.9% 10 ML Syringe FLUSH PRN ×6 (04:07→22:45)
[2020-08-21] MEDS: Insulin Glargine,Human Rec. Analog 100 Units/ML 3 ML Pen SUBCUT SCH (09:46)
[2020-08-21] MEDS: Carboxymethylcellulose Sodium 0.5% Ophth Soln 0.4 ML UD Box of 30 EYEBOTH SCH ×4 (11:05→21:11)
[2020-08-21 11:42] VITALS: BP 174/72
[2020-08-21] MEDS: LORazepam 1 MG Tab PO PRN ×3 (17:18→22:42)
[2020-08-21 22:25] VITALS: PULSE 54
[2020-08-22] MEDS: Morphine 2 MG/ML SYRINGE IVPUSH PRN ×7 (01:07→23:01)
[2020-08-22] MEDS: LORazepam 1 MG Tab PO PRN ×2 (04:43→07:26)
[2020-08-22] MEDS: Sodium Chloride 0.9% 10 ML Syringe FLUSH PRN ×3 (04:47→07:28)
[2020-08-22] MEDS: Carboxymethylcellulose Sodium 0.5% Ophth Soln 0.4 ML UD Box of 30 EYEBOTH SCH ×4 (09:00→21:12)
[2020-08-23] MEDS: Morphine 2 MG/ML SYRINGE IVPUSH PRN ×7 (02:09→23:58)
[2020-08-23] MEDS: Sodium Chloride 0.9% 10 ML Syringe FLUSH PRN ×3 (08:58→13:20)
[2020-08-23] MEDS: Carboxymethylcellulose Sodium 0.5% Ophth Soln 0.4 ML UD Box of 30 EYEBOTH SCH ×4 (08:59→21:11)
--- NOTE | 2020-08-23 11:00 | PN ---
DATE SEEN: 08/19/2020 SUBJECTIVE: Patient here to [facility] for multiple medical problems including VRE and bacteremia. His eyes open today. He answers yes or no to questions. He denies fevers, chills, coughing. I asked him if his family had come to see him and he said not yet. OBJECTIVE: VITAL SIGNS: Blood pressure is 174/72, pulse 54, temperature 96.5. GENERAL: He is alert, in no acute distress. LUNGS: He has no respiratory distress. ASSESSMENT: 1. Vancomycin-resistant Enterococcus bacteremia. 2. Altered mental state. 3. Bacteremia due to Streptococcus. 4. Diabetic foot ulcer. 5. History of [id number] myocardial infarction recently, status post right coronary artery stent placement. 6. Subarachnoid hemorrhage. 7. Weakness. 8. Chronic renal failure. 9. Type 2 diabetes. PLAN: He is on comfort cares. Continue Social Service to see him for proper placement for him in the hospital. /[id number] KIAH/SHU BOOGIE
[2020-08-23] MEDS: LORazepam 1 MG Tab PO PRN ×2 (15:44→18:08)
--- NOTE | 2020-08-23 18:03 | PCM.SN.2 ---
- Free Text/Narrative Note: I met with the son and the patient's . They're concerned that maybe blood cultures were accurate because he doesn't seem to be deteriorating and that actually is doing better. Is talking and drinking. He's been pulling on the catheter that's been a problem. Is also had a stent was post be on Plavix. The course hold all the medications they can he was going to pass away on comfort cares. He seems to be rallying. Family would like to restart the Plavix, recheck blood cultures to make sure the VRE is actually there, stop the catheter Cotton and then will straight catheter every 6 hours for bladder scan more than 400 mL. They also would like to back off of MS only given if he is really agitated just to let him wake up a little bit and see how he does. These orders are placed by myself and the charge nurse.
[2020-08-23] MEDS ORDERED: Clopidogrel 75 MG Tab ONE (18:21)
[2020-08-23] MEDS: Clopidogrel 75 MG Tab PO SCH (18:29)
[2020-08-24] MEDS: LORazepam 1 MG Tab PO PRN ×8 (00:50→23:37)
[2020-08-24] MEDS: Morphine 2 MG/ML SYRINGE IVPUSH PRN ×7 (01:54→23:37)
[2020-08-24] MEDS: Carboxymethylcellulose Sodium 0.5% Ophth Soln 0.4 ML UD Box of 30 EYEBOTH SCH ×4 (09:50→20:00)
[2020-08-24] MEDS: Clopidogrel 75 MG Tab PO SCH (09:51)
[2020-08-24] MEDS: Sodium Chloride 0.9% 10 ML Syringe FLUSH PRN ×2 (09:54→14:43)
[2020-08-25] MEDS: LORazepam 1 MG Tab PO PRN ×6 (04:17→21:14)
[2020-08-25] MEDS: Morphine 2 MG/ML SYRINGE IVPUSH PRN ×6 (04:18→21:14)
[2020-08-25] MEDS: Sodium Chloride 0.9% 10 ML Syringe FLUSH PRN ×4 (09:17→19:21)
[2020-08-25] MEDS: Clopidogrel 75 MG Tab PO SCH (09:21)
[2020-08-25] MEDS: Carboxymethylcellulose Sodium 0.5% Ophth Soln 0.4 ML UD Box of 30 EYEBOTH SCH ×4 (09:22→21:21)
[2020-08-26] MEDS: LORazepam 1 MG Tab PO PRN ×4 (08:06→20:00)
[2020-08-26] MEDS: Sodium Chloride 0.9% 10 ML Syringe FLUSH PRN ×4 (08:07→20:01)
[2020-08-26] MEDS: Morphine 2 MG/ML SYRINGE IVPUSH PRN ×5 (08:07→20:00)
[2020-08-26] MEDS: Carboxymethylcellulose Sodium 0.5% Ophth Soln 0.4 ML UD Box of 30 EYEBOTH SCH ×4 (08:08→20:00)
--- NOTE | 2020-08-26 08:32 | PCM.SN.2 ---
- Free Text/Narrative Note: Agent is less responsive. Not able to swallow pills anymore so will again stop the Plavix. We'll keep him comfortable. Discussed patient's condition with the family several times. They want just to keep him comfortable and make sure he does not suffer was agitated. The repeat cultures will be 3 days tonight and so further negative for blood cultures. Comfort cares anticipate expiration.
[2020-08-26] MEDS: Clopidogrel 75 MG Tab PO SCH (09:25)
[2020-08-27] MEDS: Morphine 2 MG/ML SYRINGE IVPUSH PRN ×4 (04:50→15:54)
[2020-08-27] MEDS: Sodium Chloride 0.9% 10 ML Syringe FLUSH PRN ×4 (04:52→15:55)
[2020-08-27] MEDS: Carboxymethylcellulose Sodium 0.5% Ophth Soln 0.4 ML UD Box of 30 EYEBOTH SCH ×3 (09:04→16:00)
[2020-08-27] MEDS: LORazepam 1 MG Tab PO PRN (09:20)
[2020-08-27] MEDS ORDERED: Morphine 10 MG/0.5 ML Oral Syringe SL PRN (09:39)
[2020-08-27] MEDS ORDERED: LORazepam 2 MG/ML SDV IVPUSH PRN (09:40)
[2020-08-27] MEDS ORDERED: Scopolamine 1.5 MG Transdermal Patch TOP SCH (17:00)
--- NOTE | 2020-08-27 18:05 | PCM.PN ---
- General Info Date of Service: 08/27/20 Admission Dx/Problem (Free Text): Patient briefly answers questions with one-word his response and goes back to sleep. He denies fevers, chills, cough, abdominal pain. - Patient Data Vitals - Most Recent: Last Vital Signs Temp 35.8 C L 08/21/20 11:00 Pulse 54 L 08/21/20 21:00 Resp 22 H 08/21/20 11:00 BP 174/72 H 08/21/20 11:00 Pulse Ox 96 08/21/20 11:00 Weight - Most Recent: 141.578 kg I&O - Last 24 Hours: Intake & Output 08/27/20 08/27/20 08/27/20 06:59 14:59 22:59 Output Total 675 Balance -675 Los Results Last 24 Hours: Microbiology 08/23/20 18:15 Aerobic Blood Culture - Preliminary Blood - Venous NO GROWTH AFTER 3 DAYS Anaerobic Blood Culture - Preliminary NO GROWTH AFTER 3 DAYS 08/23/20 18:20 Aerobic Blood Culture - Preliminary Blood - Venous - Lab Draw NO GROWTH AFTER 3 DAYS Anaerobic Blood Culture - Preliminary NO GROWTH AFTER 3 DAYS Med Orders - Current: Current Medications Albuterol (Albuterol 8 Gm Inhaler) 0 gm INH Q4H PRN PRN Reason: SHORTNESS OF BREATH/WHEEZE Albuterol/Ipratropium (Albuterol/Ipratropium 3.0-0.5 Mg/3 Ml Neb Soln) 3 ml INH Q4H PRN PRN Reason: SHORTNESS OF BREATH/WHEEZE Artificial Tears (Carboxymethylcellulose Sodium 0.5% Ophth Soln 0.4 Ml Ud Box Of 30) 0 each EYEBOTH QID [facility] Last Admin: 08/27/20 16:00 Dose: 1 drop Documented by: Bisacodyl (Bisacodyl 10 Mg Supp) 10 mg RECTAL DAILY PRN PRN Reason: Constipation Last Admin: 08/12/20 10:33 Dose: 10 mg Documented by: Lorazepam (Lorazepam 1 Mg Tab) 1 mg PO Q1H PRN PRN Reason: Agitation Last Admin: 08/27/20 09:20 Dose: 1 mg Documented by: Lorazepam (Lorazepam 2 Mg/Ml Sdv) 0.5 mg IVPUSH Q1H PRN PRN Reason: AGITATION Morphine Sulfate (Morphine 2 Mg/Ml Syringe) 2 mg IVPUSH Q30M PRN PRN Reason: PAIN Last Admin: 08/27/20 15:54 Dose: 2 mg Documented by: Morphine Sulfate (Morphine 10 Mg/0.5 Ml Oral Syringe) 5 mg SL Q30M PRN PRN Reason: PAIN Ondansetron HCl (Ondansetron 4 Mg Tab.Dis) 4 mg PO Q6H PRN PRN Reason: nausea, able to take PO Scopolamine (Scopolamine 1.5 Mg Transdermal Patch) 1.5 mg TOP Q72H [facility] Last Admin: 08/27/20 16:48 Dose: 1.5 mg Documented by: Sodium Chloride (Sodium Chloride 0.9% 10 Ml Syringe) 10 ml FLUSH ASDIRECTED PRN PRN Reason: Keep Vein Open Last Admin: 08/27/20 15:55 Dose: 10 ml Documented by: Discontinued Medications Acetaminophen (Acetaminophen 325 Mg Tab) 650 mg PO Q4H PRN PRN Reason: MILD PAIN Last Admin: 08/14/20 21:17 Dose: 650 mg Documented by: Amlodipine Besylate (Amlodipine 10 Mg Tab) 10 mg PO DAILY [facility] Last Admin: 08/19/20 10:01 Dose: Not Given Documented by: Apixaban (Apixaban 5 Mg Tab) 2.5 mg PO BID [facility] Last Admin: 08/19/20 10:00 Dose: Not Given Documented by: Calcium Carbonate/Glycine (Calcium Carbonate 500 Mg Tab.Chew) 500 mg PO QID PRN PRN Reason: Indigestion Calcium Carbonate/Glycine (Calcium Carbonate 500 Mg Tablet) 500 mg PO DAILY [facility] Last Admin: 08/19/20 10:01 Dose: Not Given Documented by: Ceftriaxone Sodium (Ceftriaxone 2 Gm Vial) 2 gm IVPUSH DAILY@1600 [facility] Stop: 08/04/20 16:01 Last Admin: 08/04/20 16:44 Dose: 2 gm Documented by: Ceftriaxone Sodium (Ceftriaxone 1 Gm Vial) 1 gm IVPUSH Q24H [facility] Last Admin: 08/19/20 09:00 Dose: 1 gm Documented by: Clonidine HCl (Clonidine 0.1 Mg Tab) 0.1 mg PO BID [facility] Last Admin: 08/19/20 10:00 Dose: Not Given Documented by: Clopidogrel Bisulfate (Clopidogrel 75 Mg Tab) 75 mg PO DAILY [facility] Last Admin: 08/19/20 10:01 Dose: Not Given Documented by: Clopidogrel Bisulfate (Clopidogrel 75 Mg Tab) 75 mg PO DAILY [facility] Last Admin: 08/26/20 09:25 Dose: Not Given Documented by: Clopidogrel Bisulfate (Clopidogrel 75 Mg Tab) Confirm Administered Dose 75 mg .ROUTE .STK-MED ONE Stop: 08/23/20 18:22 Last Admin: 08/24/20 01:30 Dose: Not Given Documented by: Dextrose/Water (50% Dextrose In Water 50 Ml Syringe) 50 ml IVPUSH ASDIRECTED PRN PRN Reason: Hypoglycemia Dextrose/Water (50% Dextrose In Water 50 Ml Syringe) 50 ml IVPUSH ASDIRECTED PRN PRN Reason: Hypoglycemia Donepezil HCl (Donepezil 10 Mg Tab) 20 mg PO DAILY [facility] Last Admin: 08/19/20 10:00 Dose: Not Given Documented by: Glucagon (Glucagon,Human Recombinant 1 Mg Vial) 1 mg IM ASDIRECTED PRN PRN Reason: Hypoglycemia Glucagon (Glucagon,Human Recombinant 1 Mg Vial) 1 mg IM ASDIRECTED PRN PRN Reason: Hypoglycemia Glucosamine/Chondroitin (Chondroitin/Glucosamine Cap) 1 cap PO DAILY [facility] Last Admin: 08/19/20 10:00 Dose: Not Given Documented by: Hydralazine HCl (Hydralazine 25 Mg Tab) 75 mg PO TID [facility] Last Admin: 08/19/20 14:06 Dose: Not Given Documented by: Ceftriaxone Sodium 1 gm/ (Sodium Chloride) 50 mls @ 200 mls/hr IV Q24H [facility] Last Admin: 08/17/20 03:48 Dose: 200 mls/hr Documented by: Daptomycin 850 mg/ Sodium (Chloride) 50 mls @ 50 mls/hr IV Q24H [facility] Last Admin: 08/19/20 09:01 Dose: 50 mls/hr Documented by: Insulin Glargine (Insulin Glargine,Human Rec. Analog 100 Units/Ml 3 Ml Pen) 35 units SUBCUT DAILY [facility] Last Admin: 08/16/20 09:42 Dose: 35 unit Documented by: Insulin Glargine (Insulin Glargine,Human Rec. Analog 100 Units/Ml 3 Ml Pen) 25 units SUBCUT DAILY [facility] Last Admin: 08/20/20 09:32 Dose: Not Given Documented by: Insulin Glargine (Insulin Glargine,Human Rec. Analog 100 Units/Ml 3 Ml Pen) 12 units SUBCUT DAILY [facility] Last Admin: 08/21/20 09:46 Dose: Not Given Documented by: Insulin Glargine (Insulin Glargine,Human Rec. Analog 100 Units/Ml 3 Ml Pen) 300 units SUBCUT .STK-MED ONE Stop: 08/12/20 08:51 Insulin Glargine (Insulin Glargine,Human Rec. Analog 100 Units/Ml 3 Ml Pen) 300 units SUBCUT .STK-MED ONE Stop: 08/04/20 08:32 Insulin Human Lispro (Insulin Lispro 100 Unit/Ml 3 Ml Kwikpen) 0 unit SUBCUT TIDMEALS [facility]; Protocol Last Admin: 08/20/20 09:34 Dose: Not Given Documented by: Insulin Human Lispro (Insulin Lispro 100 Unit/Ml 3 Ml Kwikpen) 300 unit SUBCUT .STK-MED ONE Stop: 08/03/20 08:32 Insulin Human Lispro (Insulin Lispro 100 Unit/Ml 3 Ml Kwikpen) 300 unit SUBCUT .[facility]-MED ONE Stop: 08/03/20 18:41 Lidocaine HCl (Lidocaine 2% Hcl 6 Ml Jel.Pf.Leo) 6 ml .XX ONETIME ONE Stop: 08/16/20 10:58 Last Admin: 08/16/20 11:03 Dose: 6 ml Documented by: Loperamide HCl (Loperamide 2 Mg Cap) 2 mg PO BID [facility] Last Admin: 08/09/20 08:51 Dose: 2 mg Documented by: Melatonin (Melatonin 3 Mg Tab) 6 mg PO BEDTIME PRN PRN Reason: Insomnia Last Admin: 08/07/20 22:05 Dose: 6 mg Documented by: Metoprolol Tartrate (Metoprolol Tartrate 25 Mg Tab) 12.5 mg PO BID [facility] Last Admin: 08/04/20 08:20 Dose: 12.5 mg Documented by: Mirtazapine (Mirtazapine 15 Mg Tab) 15 mg PO BEDTIME [facility] Last Admin: 08/18/20 20:29 Dose: 15 mg Documented by: Morphine Sulfate (Morphine 2 Mg/Ml Syringe) 2 mg IVPUSH Q30M PRN PRN Reason: Pain Last Admin: 08/19/20 14:57 Dose: 2 mg Documented by: Multivitamins (Vitamin B Complex With Vitamin C Tab) 1 each PO DAILY [facility] Last Admin: 08/19/20 10:01 Dose: Not Given Documented by: Nitroglycerin (Nitroglycerin 0.4 Mg Tab.Sl) 0.4 mg SL Q5M PRN PRN Reason: Chest Pain Polyethylene Glycol (Polyethylene Glycol 3350 Powder 17 Gm Packet) 17 gm PO DAILY PRN PRN Reason: Constipation Last Admin: 08/12/20 08:33 Dose: 17 gm Documented by: Polyethylene Glycol (Polyethylene Glycol 3350 Powder 17 Gm Packet) 17 gm PO DAILY [facility] Last Admin: 08/19/20 10:01 Dose: Not Given Documented by: Quetiapine Fumarate (Quetiapine 25 Mg Tab) 37.5 mg PO DAILY@1800 [facility] Last Admin: 08/18/20 17:22 Dose: 37.5 mg Documented by: Rosuvastatin Calcium (Rosuvastatin 20 Mg Tab) 40 mg PO DAILY [facility] Last Admin: 08/18/20 11:59 Dose: 40 mg Documented by: Sulfasalazine (Sulfasalazine 500 Mg Tab) 500 mg PO BID [facility] Last Admin: 08/19/20 10:01 Dose: Not Given Documented by: Tamsulosin HCl (Tamsulosin 0.4 Mg Cap.Er) 0.4 mg PO BEDTIME [facility] Last Admin: 08/18/20 20:29 Dose: 0.4 mg Documented by: Torsemide (Torsemide 20 Mg Tab) 20 mg PO DAILY [facility] Last Admin: 08/19/20 10:00 Dose: Not Given Documented by: Vit C/Vit E/Zinc/Copper/Lutein (Lutein/Minerals/Vitamin C/Vitamin E Acetate Cap) 1 each PO DAILY [facility] Last Admin: 08/19/20 10:01 Dose: Not Given Documented by: Zinc Sulfate (Zinc Sulfate 220 Mg Cap) 220 mg PO DAILY [facility] Last Admin: 08/18/20 11:55 Dose: 220 mg Documented by: Comments:: I was called to the patient's room to confirm that the patient had passed. Patient was lying in bed supine, not moving, did not respond to words or stimula tion. His was sitting in the chair next to the bed. - Exam Urinary Catheter Total Time: 0Days 15Hours General: Obtunded HEENT: Other (Pupils are dilated and fixed bilaterally) Lungs: Other (No breath sounds bilaterally, no air movement at the oropharynx) Cardiovascular: Other (No heart sounds auscultated) Peripheral Pulses: 0: Radial (L), Radial (R), Femoral (L), Femoral (R) - Patient Data Result Diagrams: 08/23/20 19:00 08/23/20 19:00 Los Results Last 24 hrs: Microbiology 08/23/20 18:15 Aerobic Blood Culture - Preliminary Blood - Venous NO GROWTH AFTER 3 DAYS Anaerobic Blood Culture - Preliminary NO GROWTH AFTER 3 DAYS 08/23/20 18:20 Aerobic Blood Culture - Preliminary Blood - Venous - Lab Draw NO GROWTH AFTER 3 DAYS Anaerobic Blood Culture - Preliminary NO GROWTH AFTER 3 DAYS Sepsis Event Note - Evaluation Sepsis Screening Result: No Definite Risk - Problem List & Annotations (1) Bacteremia due to Streptococcus SNOMED Code(s): 778920236591 Code(s): R78.81 - BACTEREMIA; B95.5 - UNSP STREPTOCOCCUS THE CAUSE OF DISEASES CLASSD ELSWHR Status: Acute Current Visit: Yes Annotation/Comment:: Complete antibiotic course of Rocephin 4.28 (2) NSTEMI (non-ST elevated myocardial infarction) SNOMED Code(s): 84112453 Code(s): I21.4 - NON-ST ELEVATION (NSTEMI) MYOCARDIAL INFARCTION Status: A cute Current Visit: Yes Onset Date: ~07/2020 (3) S/P right coronary artery (RCA) stent placement SNOMED Code(s): 92904254299765, 30955861008440 Code(s): Z95.5 - PRESENCE OF CORONARY ANGIOPLASTY IMPLANT AND GRAFT Status: Acute Current Visit: Yes (4) Subarachnoid hemorrhage SNOMED Code(s): 733439360 Code(s): I60.9 - NONTRAUMATIC SUBARACHNOID HEMORRHAGE, UNSPECIFIED Status: Chronic Current Visit: Yes Onset Date: ~07/2020 (5) Weakness SNOMED Code(s): 44095499 Code(s): R53.1 - WEAKNESS Status: Chronic Current Visit: Yes (6) Afib SNOMED Code(s): 02347016 Code(s): I48.91 - UNSPECIFIED ATRIAL FIBRILLATION Status: Chronic Current Visit: No (7) CHF (congestive heart failure) SNOMED Code(s): 69166317 Code(s): I50.9 - HEART FAILURE, UNSPECIFIED Status: Chronic Current Visit: No (8) Functional gait abnormality SNOMED Code(s): 72804282091155 Code(s): R26.89 - OTHER ABNORMALITIES OF GAIT AND MOBILITY Status: Chronic Current Visit: No (9) COPD with asthma SNOMED Code(s): 25493386927148394 Code(s): J44.9 - CHRONIC OBSTRUCTIVE PULMONARY DISEASE, UNSPECIFIED Status: Chronic Current Visit: No (10) Chronic atrial fibrillation SNOMED Code(s): 685957812 Code(s): I48.20 - CHRONIC ATRIAL FIBRILLATION, UNSPECIFIED Status: Chronic Current Visit: No (11) Hyperlipidemia SNOMED Code(s): 83663205 Code(s): E78.5 - HYPERLIPIDEMIA, UNSPECIFIED Status: Chronic Current Visit: No (12) Hypertension SNOMED Code(s): 96989644 Code(s): I10 - ESSENTIAL (PRIMARY) HYPERTENSION Status: Chronic Current Visit: No (13) Memory loss SNOMED Code(s): 96006433 Code(s): R41.3 - OTHER AMNESIA Status: Chronic Current Visit: No (14) Type 2 diabetes mellitus SNOMED Code(s): 26948326 Code(s): E11.9 - TYPE 2 DIABETES MELLITUS WITHOUT COMPLICATIONS Status: Chronic Current Visit: No Qualifiers: Diabetes mellitus snf insulin use: with intermediate project manager use (15) Fluid retention SNOMED Code(s): 50552021 Code(s): R60.9 - EDEMA, UNSPECIFIED Status: Chronic Current Visit: No (16) Diabetic foot ulcer SNOMED Code(s): 885286937 Code(s): E11.621 - TYPE 2 DIABETES MELLITUS WITH FOOT ULCER; L97.509 - NON- PRESSURE CHRONIC ULCER OTH PRT UNSP FOOT W UNSP SEVERITY Status: Acute Current Visit: Yes (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 SNOMED Code(s): 056535475 Code(s): Z79.01 - [place] (CURRENT) USE OF ANTICOAGULANTS Status: Chronic Current Visit: No (18) Altered mental status SNOMED Code(s): 381404736 Code(s): R41.82 - ALTERED MENTAL STATUS, UNSPECIFIED Status: Acute Current Visit: Yes (19) DEVANTE (acute kidney injury) SNOMED Code(s): 06431282, 61534275 Code(s): N17.9 - ACUTE KIDNEY FAILURE, UNSPECIFIED Status: Acute Current Visit: Yes (20) Bacteremia SNOMED Code(s): 7265858 Code(s): R78.81 - BACTEREMIA Status: Acute Current Visit: Yes - Problem List Review Problem List Initiated/Reviewed/Updated: Yes - My Orders Last 24 Hours: My Active Orders 08/27/20 09:39 Morphine [Morphine 10 MG/0.5 ML Oral Syringe] 5 mg SL Q30M PRN 08/27/20 09:40 LORazepam [Ativan] 0.5 mg IVPUSH Q1H PRN 08/27/20 17:00 Scopolamine [Transderm-Scop] 1.5 mg TOP Q72H - Plan Plan:: Time of 1700 on 08/27/2020
== END 2020-08-27 19:35 | disposition expired | DRG 939 ==
LOC: FB.MS 08-03 15:07 → UNDODISIN 08-27 17:00
PROVIDERS: ADMIT Family Medicine; ATTEND Student in an Organized Health Care Education/Training Program
PROC: 0YQ Anatomical Regions, Lower Extremities, Repair (ICD-10-PCS; principal; 2020-08-05)
DX: R53.1 Weakness (principal); I21.4 Non-ST elevation (NSTEMI) myocardial infarction; I60.9 Nontraumatic subarachnoid hemorrhage, unspecified; R78.81 Bacteremia; I48.20 Chronic atrial fibrillation, unspecified; N17.9 Acute kidney failure, unspecified; E11.52 Type 2 diabetes mellitus with diabetic peripheral angiopathy with gangrene; I96 Gangrene, not elsewhere classified; Z16.21 Resistance to vancomycin; B95.5 Unspecified streptococcus as the cause of diseases classified elsewhere; R26.89 Other abnormalities of gait and mobility; J44.9 Chronic obstructive pulmonary disease, unspecified; E78.5 Hyperlipidemia, unspecified; Z51.5 Encounter for palliative care; R41.3 Other amnesia; E11.621 Type 2 diabetes mellitus with foot ulcer; L97.509 Non-pressure chronic ulcer of other part of unspecified foot with unspecified severity; E78.00 Pure hypercholesterolemia, unspecified; K21.9 Gastro-esophageal reflux disease without esophagitis; E11.22 Type 2 diabetes mellitus with diabetic chronic kidney disease; N18.30 Chronic kidney disease, stage 3 unspecified; E11.42 Type 2 diabetes mellitus with diabetic polyneuropathy; G20 Parkinson's disease; F02.80 Dementia in other diseases classified elsewhere, unspecified severity, without behavioral disturbance, psychotic disturbance, mood disturbance, and anxiety; E66.9 Obesity, unspecified; M19.90 Unspecified osteoarthritis, unspecified site; F32.9 Major depressive disorder, single episode, unspecified; Z96.653 Presence of artificial knee joint, bilateral; Z96.612 Presence of left artificial shoulder joint; Z66 Do not resuscitate; R41.82 Altered mental status, unspecified; R32 Unspecified urinary incontinence; R60.0 Localized edema; S90.415A Abrasion, left lesser toe(s), initial encounter; N14.1 Nephropathy induced by other drugs, medicaments and biological substances; T50.8X5A Adverse effect of diagnostic agents, initial encounter; G47.33 Obstructive sleep apnea (adult) (pediatric); M20.42 Other hammer toe(s) (acquired), left foot; I12.9 Hypertensive chronic kidney disease with stage 1 through stage 4 chronic kidney disease, or unspecified chronic kidney disease; Z95.5 Presence of coronary angioplasty implant and graft; Z79.01 Long term (current) use of anticoagulants; Z79.899 Other long term (current) drug therapy; Z79.4 Long term (current) use of insulin; Z85.038 Personal history of other malignant neoplasm of large intestine; Z98.890 Other specified postprocedural states; Z87.891 Personal history of nicotine dependence; Z90.49 Acquired absence of other specified parts of digestive tract; Z68.34 Body mass index [BMI] 34.0-34.9, adult; Z86.73 Personal history of transient ischemic attack (TIA), and cerebral infarction without residual deficits; Z99.81 Dependence on supplemental oxygen; Z79.51 Long term (current) use of inhaled steroids; Z85.828 Personal history of other malignant neoplasm of skin; Z86.010 Personal history of colon polyps; Z90.89 Acquired absence of other organs; Z98.41 Cataract extraction status, right eye; Z98.42 Cataract extraction status, left eye; Z98.52 Vasectomy status; Z79.02 Long term (current) use of antithrombotics/antiplatelets; W22.8XXA Striking against or struck by other objects, initial encounter
CPT/HCPCS: 36415; 51701; 51702; 51703; 70450; 74176; 80048; 80053; 81001; 82272; 82947; 83605; 85025; 85651; 86140; 87040; 87186; 97110-GO; 97129-GO; 97161-GP; 97166-GO; 97530-GO; 97530-GP; 97535-GO; 97542-GO; A9270-GY; J0696; J0878; J1815; J1815-GY; J2270